=== PATIENT | female | born 1945 | race Caucasian/White ===

== ENCOUNTER → 2016-08-08 | Day surgery (SDC) | payer OTHER ==
[~2016-08-08] VITALS: Ht 162.6 cm; Wt 92.0 kg
[~2016-08-08] MED LIST: ACETAMINOPHEN 325 MG TAB PO PRN; ALBINS/ INH; ALBU18002 INH; ASPI81TA28 PO; ATOR-24 PO; ATROPINE SULFATE 0.1 MG/ML 5ML SYR IV PRN; BUPR150T5 PO; DC ALL ANTICOAGULANTS ONE; IPRASOL4 INH; LIDOCAINE 5% TOP; MIDAZOLAM HCL 1 MG/ML 2ML VIAL ONE; ONDANSETRON INJ 2 MG/ML 2 ML VIAL IV PRN; OXGN; PANT40TA PO; POTA10CA28 PO; SODIUM CHLORIDE 0.9% 1000ML 1,000 ML IV SCH; SODIUM CHLORIDE 0.9% 1000ML 250 ML IV PRN; TORS10TA14 PO; UMEC1AER INH
[2016-08-08 07:06] VITALS: BP 158/65; PULSE 78; TEMP 36.7; O2SAT 95; Ht 162.6 cm; Wt 92.0 kg
--- NOTE | 2016-08-08 09:30 | History & Physical Bridge Note ---
H&P Re-Evaluation Bridge Note: I have examined the patient, reviewed the History & Physical and in the interval since the performance of the History & Physical I have noted the following changes of clinical significance: No changes noted
[2016-08-08 09:37] LABS: ISTAT ARTERIAL BLOOD GAS HCO3 23 meq/L (19-24); ISTAT ARTERIAL BLOOD GAS PCO2 39 mmHg (35-46); ISTAT ARTERIAL BLOOD GAS PO2 35 mmHg (80-95); ISTAT ARTERIAL BLOOD GAS pH 7.37 (7.35-7.45); ISTAT CARBON DIOXIDE 24 mEq/l (24-31)
--- NOTE | 2016-08-08 09:39 | Cardiac Catheterization ---
Procedure Note Procedure Date August 08, 2016. Pre-Procedure Diagnosis Cardiothoracic Symptom AUC Score 7 Post-Procedure Diagnosis Moderate CAD Procedure(s) Performed Coronary Angiography, Right Heart Cath Field Contractor Dr. Stearns Talent Partner(s) None Estimated Blood Loss None Medication(s) Versed Summary of Findings Moderate CAD Hemodynamics Rest Ao: 139/63 Final Ao: 138/62 LV: valve not crossed RA: 11 RV: 40/6 PA: 4017 PW: 18 Recommendations Medical therapy and/or Counseling Specimens None Radiation Exposure (mGy) 416 Contrast (mls) 80 Fluids (cc crystalloids) 63 Procedural Complication(s) None Disposition [employer]/Recovery ACC Data Cardiac Status Clinical evaluation leading to the procedure CAD Presntation: Sx unlikely to be ischemic Anginal Classification: CCS II Heart Failure: No Cardiogenic Shock w/in 24Hrs: No Cardiac Arrest w/in 24Hrs: No Imaging studies past 6 months: Yes Stress studies past 6 months: No Coronary Anatomy Dominant: Right Left Main (% Stenosis): Distal (40) LAD (% Stenosis): Mid (20) OM3 (% Stenosis): Proximal (50) RCA (% Stenosis): Mid (20) Diagnostic Status: Elective Closure Device Percutaneous Entry Location: Femoral Closure Device: Mynx Recommendations: Medical therapy and/or Counseling
--- NOTE | 2016-08-08 09:42 | Discharge Instructions ---
Discharge Instructions Procedure Procedure Date: August 08, 2016. Reason for Visit: Possible Pulmonary Hypertension *Dr Stearns To Do*. Discharge Discharge Date: August 08, 2016. Discharge Diagnosis: Mild Pulmonary Hypertension, Moderate Nonobstructive CAD Last Recorded Wt (Kilograms): 92 Anesthesia Post Anesthesia Instructions: If you have had General Anesthesia or IV Sedation: * Do not drive today. * Resume driving when surgeon permits. * Do not make important decisions or sign legal documents today. * Call surgeon for: 1. Temperature elevations greater than 101 degrees F. 2. Uncontrollable pain. 3. Excessive bleeding. 4. Persistent nausea and vomiting. 5. Medication intolerance (nausea, vomiting or rash). * For nausea and vomiting use only clear liquids such as: tea, soda, bouillon until nausea subsides, then gradually increase diet as tolerated. * If you have any concerns or questions, call your surgeon's office. If physician is unavailable and it is an emergency, call 911 or go to the nearest emergency room. Instructions Activity Recommendations: limitations Recommended Home Diet: resume previous diet Allergies: Coded Allergies: Flu Virus Vaccine (Unverified Allergy, Severe, "I almost the next day ", 08/08/16) Sulfa Antibiotics (Unverified Allergy, Unknown, Pt doesn't remember, ) Provider Instructions ACTIVITY RECOMMENDATIONS: It is common to feel weak and fatigue for a few days. * Do not drive or operate any motorized equipment for the next three days. * Limit stair usage (2 or 3 trips a day only) for the next three days. * Do not lift anything heavier than 10 pounds for the next three days. * Do not engage in vigorous exercise or any sports for the next five days. * You may shower the day after your procedure, but do not immerse the area for three days. Cleanse the site gently with soap and water. SPECIAL CARE INSTRUCTIONS: * You may replace the pressure dressing or band-aid the morning after the procedure. * After your procedure, it is normal to have a small bruise or small lump at the site. Examine your site daily for any change in the bruise or lump, redness, swelling, drainage or numbness. Notify your doctor if any change. BLEEDING: * If there is a small amount of bleeding at the site, lie down and apply firm pressure with a clean cloth for ten minutes. When the bleeding stops, lie quietly keeping the procedure limb straight for six hours. Notify your doctor as soon as possible. * If the bleeding does not stop after ten minutes or if there is a large amount of bleeding or spurting, call 911 immediately. Continue to lie down and hold firm pressure until help arrives. SKIN IRRITATION: * You may experience some redness and/or swelling in the area where radiation was administered. If any skin irritation occurs, please contact your family physician. FOLLOW UP VISIT: Keep any scheduled doctor appointments. Follow Up Karla Elaine Recommendations: Call your doctor if: * Temperature above 101 degrees * Pain not relieved by pain medicine ordered * There is increased drainage or redness from any incision * You have any unanswered questions or concerns. Your Doctors Instructions noted above were prepared by provider Les Stearns. Patient Signature Section: Patient Instructions Signature Page Mildred Moser Patient (or Guardian) Signature/Date: I have read and understand the instructions given to me by my caregivers. Caregiver/RN/Doctor Signature/Date: The above-named patient and/or guardian has received patient instructions on this date. + Original Patient Signature Page (only) stays with chart. Please make copy for patient.
[2016-08-08 13:15] VITALS: BP 130/72; PULSE 70; O2SAT 97
--- NOTE | 2016-08-08 13:36 | CARDIAC CATH REPORT ---
PROCEDURES: 1. Right heart catheterization. 2. Coronary angiography. HISTORY OF PRESENT ILLNESS: This is a 70-year-old female with a longstanding history of cigarette smoking and tobacco associated COPD. She has been experiencing dyspnea with activity as well as lower extremity edema suggesting pulmonary hypertension and cor pulmonale. PROCEDURE SUMMARY: The patient was seen and evaluated in the holding area of the clinical laboratory technologist. After informed consent was obtained, the patient was taken to the cardiac catheterization lab where access was obtained using a retrograde Seldinger technique from the right femoral artery and vein. A 7-Divehi [place]-Radha catheter was utilized for right heart pressures and cardiac outputs. A 5-Divehi preformed diagnostic catheter was utilized for the coronary angiograms. A left ventriculogram was not performed due to the patient's history of chronic kidney disease. The patient tolerated the procedure well. The arterial site was closed with a Mynx device and she was returned to the holding area of the clinical laboratory technologist in stable condition. HEMODYNAMIC DATA: Right atrial pressure is a mean of 11 mmHg, right ventricular pressure is 40/6 mmHg, PA pressure is 40/17 mmHg, pulmonary capillary wedge pressure is a mean of 18 mmHg. Cardiac output by thermal dilution is 5.4 liters per minute with cardiac index of 2.7. Cardiac output by Acacia equation was 4.4 liters per minute with cardiac index of 2.2 liters per minute per m2. CORONARY ANGIOGRAPHY: Selective injections of the right coronary artery reveal it to be dominant. The right coronary artery has minor coronary artery disease reaching about 20% in the mid segment. The artery is widely patent. Selective injections of the left coronary artery reveal some tapering of the left main trunk distally to about 40% stenosis. The left circumflex artery consists of 3 marginal branches. The third and last marginal branch has a 50% stenosis of its proximal segment. There is a large ramus branch which is widely patent off of the LAD. The LAD has diffuse disease with the worst being approximately a 30%-50% stenosis in its mid or proximal segment. The artery is essentially widely patent. SUMMARY: The patient has mild pulmonary hypertension and mild to moderate nonobstructive coronary artery disease. RECOMMENDATIONS: Stop smoking and for medical management of the patient's underlying lung disease as well as coronary artery disease.
== END | disposition home or self-care (01) ==
LOC: C.CATH 06:32
PROVIDERS: ATTEND Internal Medicine Cardiovascular Disease
DX: I25.10 Atherosclerotic heart disease of native coronary artery without angina pectoris (principal); I27.2 Other secondary pulmonary hypertension; F17.210 Nicotine dependence, cigarettes, uncomplicated; G47.33 Obstructive sleep apnea (adult) (pediatric); I12.9 Hypertensive chronic kidney disease with stage 1 through stage 4 chronic kidney disease, or unspecified chronic kidney disease; E78.5 Hyperlipidemia, unspecified; I73.9 Peripheral vascular disease, unspecified; N18.3 Chronic kidney disease, stage 3 (moderate); H35.039 Hypertensive retinopathy, unspecified eye; J44.9 Chronic obstructive pulmonary disease, unspecified; Z82.49 Family history of ischemic heart disease and other diseases of the circulatory system

== ENCOUNTER 2023-05-31 11:20 | Inpatient (IN) ==
--- NOTE | 2023-05-31 11:41 | Emergency Department Note ---
Impression & Plan Hypoxia, COPD exacerbation, Pneumonia, SOB (shortness of breath), Rhinovirus infection, Elevated troponin, Hypomagnesemia ED Provider Note NAME: PELON FERNANDEZ AGE: 77 SEX: F : 1945 ARRIVES VIA: Walk-In INFORMANT: [Patient] ED PROVIDER(S): [Osito Graham MD] CHIEF COMPLAINT: Short of breath HISTORY OF PRESENT ILLNESS: The patient is a 77-year-old female with COPD and diabetes. She states that this weekend, 4 to 5 days ago, she began to feel short of breath and had some increased cough. At times, the cough has been productive. She has pain in her back moving to the right abdomen. She feels very short of breath with any exertion. She had to start wearing her home O2-she does not typically wear home oxygen. The patient has been using her nebulizer 3 times a day. Despite doing this and taking her regular medications, she has become more and more short of breath. The patient went to her doctor's office today, her O2 saturation was quite low at around 85%. She was referred to the ER. Of note, the patient did have RSV earlier this year, she has not had any recent sick contacts. PMHx/PSHx/Social Hx: See Below PHYSICAL EXAM: GENERAL: Patient is in moderate respiratory distress. HEENT: No acute trauma, normocephalic atraumatic, mucous membranes moist, no nasal congestion. NECK: No stridor, no adenopathy, no meningismus, trachea is midline. LUNGS: Moderate respiratory distress, increased respiratory rate. She is short of breath with just speaking a short sentence. She is quite short of breath with walking back from the bathroom. She has wheezing and rhonchi bilaterally. HEART: Heart tones were quite distant and difficult to describe as she had extensive overriding lung sounds. ABDOMEN: Soft, nontender, no peritonitis. EXTREMITIES: No cyanosis, full range of motion of all the joints without pain or difficulty. Mild bilateral pedal edema. NEUROLOGIC: Oriented x 3, no acute motor or sensory deficits, no focal weakness. SKIN: No jaundice, no diaphoresis. DIFFERENTIAL DIAGNOSIS: Exacerbation of COPD, CHF, pneumonia, pneumothorax, anemia, electrolyte imbalance, cardiac ischemia, viral illness, among others. EMERGENCY DEPARTMENT PROCEDURES: MEDICAL DECISION MAKING: There was no leukocytosis or concerning anemia. There was a slightly low platelet count at 115. No coagulopathy. No renal failure. The magnesium was somewhat low at 1.5. No concerning liver enzyme elevation. ECG shows a sinus rhythm, no obvious ischemia. Cardiac enzyme testing x 1 was slightly elevated. This troponin elevation could be secondary to cardiac injury or potentially just mismatch from her hypoxia. Urinalysis did not show infection. Respiratory bio fire was positive for rhinovirus. Chest film showed a potential right lower lung infiltrate. Lactic acid level was not elevated making severe sepsis unlikely. On exam, patient was clearly short of breath. She was wheezing. She was reportedly hypoxic earlier today. The patient was aggressively managed. She was ordered for 2 DuoNebs. She was given IV Solu-Medrol, IV ceftriaxone. She received IV magnesium. The patient does appear to be improving with the above treatment. She is in need of a hospital stay. She appears to have a rhinovirus infection and potentially early pneumonia. She has a flare of COPD. Given her findings, given her hypoxia, hospitalization is indicated. I spoke with the patient and case management, the on-call hospitalist was consulted. Prior/Outside records/notes reviewed: ED visit note from 12/08/2022 discussing her presentation for shortness of breath and a flare of COPD. ECG per my interpretation: Indication was shortness of breath. The ECG shows a sinus rhythm with a rate of 72. There is significant baseline artifact. There is no obvious ST elevation, no PVCs. The QTc was 466. Continuous Cardiac Monitoring per my interpretation: An order was placed for continuous cardiac monitoring. The monitor shows a rate of 77 with normal sinus rhythm. Imaging/x-ray results per my interpretation: Chest x-ray shows what appears to be a right lower lung infiltrate consistent with pneumonia. No pneumothorax or CHF. Chronic Medical/Social conditions affecting care: Advanced age, COPD history Care/Management discussed with: Case management, the on-call hospitalist. Level of care consideration(s): After review of the information above and other included data: --I believe the patient requires escalation of care to admission Critical Care Note: I have personally spent 47 minutes of critical care time in the direct management of this patient. This includes bedside care, interpretation of diagnostic studies, and testing, discussion with consultants, patient, and family members, and other required patient management activities. This 47 minutes is in excess of all separately billable procedures. DISPOSITION: Admission Past Med/Surg History Medical History Chronic diastolic CHF (congestive heart failure) CAD (coronary artery disease) Osteoarthritis CKD (chronic kidney disease) DJD (degenerative joint disease) Neuropathy Tachycardia reason colon/EGD being done at hospital per pt, Metoprolol was added for this Diabetes mellitus, type 2 NIDDM GERD (gastroesophageal reflux disease) Hypertension Hyperlipidemia History of COVID-05 October 2021 > not hospitalized Sleep apnea cpap Chronic obstructive pulmonary disease rare res inh use Surgical History History of tonsillectomy Hx of lumpectomy benign > right History of surgery on wrist right History of repair of rotator cuff right History of hysterectomy History of bladder surgery bladder tack History of esophagogastroduodenoscopy (EGD) History of colonoscopy History of herniorrhaphy History of cholecystectomy History of appendectomy History of tooth extraction History of cardiac cath [place] approx 5 yrs ago per pt, no stents Family History Mother Diabetes Grandmother (Maternal) Diabetes Social History Smoking Status: Current every day smoker Tobacco Type: Cigarettes Cigarettes Per Day: less than 1/2 ppd; Second Hand Exposure: No; Do You Dip or Chew Tobacco: No; Tobacco Cessation Education Requested by Patient: No Hx Alcohol Use: Yes Alcohol type: wine Hx Substance Use: No Preferred Language: [place] Communication Ability: Effective Cardiopulmonary Technician Required: No Beliefs That Will Affect Care: None Current Living Situation: Alone Other Information That Helps Us Care for You: No Feels Safe at Home: Yes Safety Concerns: Feels Safe At This Time Assistive Devices: CPAP, Denture - Upper, Denture - Lower and Glasses Allergies Allergies Allergy/AdvReac Type Severity Reaction Status Date / Time Iodinated Contrast Media Allergy Severe Hives Verified 07/13/22 07:50 Influenza Virus Vaccines Allergy Intermediate Hives Verified 07/13/22 07:50 Sulfa (Sulfonamide Allergy Unknown Pt doesn't Verified 07/13/22 07:50 Antibiotics) remember Home Meds Home Medications Medication Instructions Recorded Confirmed albuterol sulfate 90 mcg/actuation 2 inh inhalation Q4 PRN Shortness 07/04/22 05/31/23 aerosol inhaler Of Breath Or Wheezing aspirin 81 mg tablet,delayed 81 mg PO QAM 07/04/22 05/31/23 release atorvastatin 40 mg tablet 40 mg PO QAM 07/04/22 05/31/23 fluticasone furoate 200 1 inh inhalation HS 07/04/22 05/31/23 mcg/actuation blister powder for inhalation (Arnuity Ellipta) glipizide 5 mg tablet 5 mg PO QAM 07/04/22 05/31/23 losartan 50 mg tablet 50 mg PO QAM 07/04/22 05/31/23 metoprolol tartrate 25 mg tablet 12.5 mg PO BID 07/04/22 05/31/23 omeprazole 20 mg capsule,delayed 20 mg PO QAM 07/04/22 05/31/23 release spironolactone 25 mg tablet 12.5 mg PO 4XWK 07/04/22 05/31/23 spironolactone 25 mg tablet 25 mg PO 3XWK 07/04/22 05/31/23 umeclidinium 62.5 mcg-vilanterol 1 inh inhalation DAILY 07/04/22 05/31/23 25 mcg/actuation powdr for inhalation (Anoro Ellipta) calcium carbonate 600 mg-vitamin 1 cap PO DAILY 12/08/22 05/31/23 D3 25 mcg (1,000 unit) capsule cholecalciferol (vitamin D3) 25 25 mcg PO HS 12/08/22 05/31/23 mcg (1,000 unit) tablet (Vitamin D3) ipratropium 0.5 mg-albuterol 3 mg 3 ml inhalation Q6 PRN Dyspnea 12/08/22 05/31/23 (2.5 mg base)/3 mL nebulization soln torsemide 10 mg tablet 10 mg PO 3XWK 12/08/22 05/31/23 torsemide 10 mg tablet 10 mg PO QAM 12/08/22 05/31/23 Results & Data (ED) Vital Signs Vital Signs - 24 hr 05/31/23 11:27 05/31/23 12:00 05/31/23 12:00 Temperature 36.6 C Temperature Source Temporal Artery Scan Pulse Rate 78 Pulse Rate [Apical] Respiratory Rate 28 H Respiratory Effort / Characteristics Short of Breath Non-Labored Respiratory Depth Respiratory Pattern Regular Blood Pressure 155/84 H Blood Pressure [Right Arm] Blood Pressure Mean 107 Blood Pressure Mean [Right Arm] Pulse Oximetry 94 Oxygen Delivery Method Nasal Cannula Nasal Cannula Nasal Cannula Oxygen Flow Rate 2 2 2 Sepsis Recent Fever Within 48 Hours No Sepsis New/Unexplained Change in Mental Status No Sepsis Action Taken by Nursing No Action Required 05/31/23 12:00 05/31/23 12:00 05/31/23 12:12 Temperature Temperature Source Pulse Rate Pulse Rate [Apical] 85 78 Respiratory Rate 22 20 Respiratory Effort / Characteristics Non-Labored Spontaneous Short of Breath Respiratory Depth Normal Respiratory Pattern Blood Pressure Blood Pressure [Right Arm] 195/93 H Blood Pressure Mean Blood Pressure Mean [Right Arm] 127 Pulse Oximetry 96 96 96 Oxygen Delivery Method Nasal Cannula Nasal Cannula Nasal Cannula Oxygen Flow Rate 2 2 2 Sepsis Recent Fever Within 48 Hours Sepsis New/Unexplained Change in Mental Status Sepsis Action Taken by Nursing 05/31/23 13:00 Temperature Temperature Source Pulse Rate 148 H Pulse Rate [Apical] Respiratory Rate Respiratory Effort / Characteristics Respiratory Depth Respiratory Pattern Blood Pressure Blood Pressure [Right Arm] Blood Pressure Mean Blood Pressure Mean [Right Arm] Pulse Oximetry Oxygen Delivery Method Oxygen Flow Rate Sepsis Recent Fever Within 48 Hours Sepsis New/Unexplained Change in Mental Status Sepsis Action Taken by [facility] Medications Current Medication List: was personally reviewed by me Laboratory Data Attestation: I reviewed the patient's lab results. 05/31/23 11:44 05/31/23 11:44 Lab Results 05/31/23 05/31/23 Range/Units 11:44 12:10 WBC 6.24 (4.8-10.8) K/ul RBC 4.98 (4.20-5.40) M/uL Hgb 15.1 (12.0-16.0) g/dl Hct 44.2 (37.0-47.0) % MCV 88.8 (80.0-100.0) fL MCH 30.3 (25.0-34.0) pg MCHC 34.2 (32.0-36.0) g/dL RDW Std Deviation 46.6 H (36.4-46.3) fL RDW Coeff of Santhosh 14.5 (11.5-14.5) % Plt Count 115 L (130-400) K/uL MPV 10.1 (9.4-12.4) fL Immature Gran % (Auto) 0.3 % Neut % (Auto) 71.8 % Lymph % (Auto) 18.6 % [place] % (Auto) 6.4 % Eos % (Auto) 1.9 % Baso % (Auto) 1.0 % Neut # (Auto) 4.48 (1.40-6.50) K/uL Lymph # (Auto) 1.16 L (1.20-3.40) K/uL [place] # (Auto) 0.40 (0.11-0.59) K/uL Eos # (Auto) 0.12 (0.00-0.50) K/uL Baso # (Auto) 0.06 (0.00-0.20) K/uL Immature Gran # (Auto) 0.02 (0.01-0.20) K/uL PT 10.9 (9.0-12.0) Seconds INR 1.0 (0.9-1.1) APTT 29 (21-31) Seconds PTT Ratio 1.0 Sodium 134 L (136-145) mmol/L Potassium 4.6 (3.5-5.1) mmol/L Chloride 102 (98-107) mmol/L Carbon Dioxide 24 (21-32) mmol/L Anion Gap 8 (3-11) BUN 12 (6-23) mg/dl Creatinine 1.15 (0.6-1.2) mg/dl Est Cr Clr Drug Dosing Not Reportable Est GFR ( Amer) 53.5 ml/min Est GFR (Non-Af Amer) 46.2 ml/min BUN/Creatinine Ratio 10.4 (10-20) Glucose 167 H (70-99(Fasting)) mg/dl Lactate 1.1 (0.4-2.0) mmol/L Calcium 9.4 (8.6-10.3) mg/dl Magnesium 1.5 L (1.7-2.4) mg/dl Total Bilirubin 1.3 H (0.2-1.0) mg/dl AST 17 (13-39) U/L ALT 21 (7-52) U/L Alkaline Phosphatase 102 (34-104) U/L Troponin I High Sens 17.1 H (0-14) pg/ml Total Protein 6.7 (6.0-8.3) gm/dl Albumin 4.4 (3.4-5.0) gm/dl Globulin 2.3 L (2.5-4.0) gm/dl Albumin/Globulin Ratio 1.9 (0.9-2) Procalcitonin 0.04 (0-0.5) ng/ml Urine Color Yellow Urine Appearance Clear (Clear) Urine pH 6.5 (4.5-7.5) Ur Specific [place] 1.007 (1.000-1.030) Urine Protein Trace H (Negative) Urine Glucose (UA) Negative (Negative) Urine Ketones Negative (Negative) Urine Blood Negative (Negative) Urine Nitrite Negative (Negative) Urine Bilirubin Negative (Negative) Urine Urobilinogen Negative (Negative) Ur Leukocyte Esterase Negative (Negative) Urine WBC (Auto) 0 (0-5) /hpf Urine RBC (Auto) 0-4 (0-4) /hpf U Hyaline Cast (Auto) 0 (0-5) /lpf U Epithel Cells (Auto) >30 H (0-5) /lpf Urine Bacteria (Auto) Negative (Negative) Adenovirus (PCR) Not Detected (NotDetected) B. pertussis DNA (PCR) Not Detected (NotDetected) B.parapertussis DNA PCR Not Detected (NotDetected) C. pneumoniae DNA (PCR) Not Detected (NotDetected) Coronavirus OC43 (PCR) Not Detected (NotDetected) Coronavirus HKU1 (PCR) Not Detected (NotDetected) Coronavirus 229E (PCR) Not Detected (NotDetected) SARS-CoV-2 (PCR) Not Detected (NotDetected) Coronavirus NL63 (PCR) Not Detected (NotDetected) Human Metapneumovir PCR Not Detected (NotDetected) Influenza Type A (PCR) Not Detected (NotDetected) Influenza Type B (PCR) Not Detected (NotDetected) M. pneumoniae (PCR) Not Detected (NotDetected) Parainfluenza 1 (PCR) Not Detected (NotDetected) Parainfluenza 2 (PCR) Not Detected (NotDetected) Parainfluenza 3 (PCR) Not Detected (NotDetected) Parainfluenza 4 (PCR) Not Detected (NotDetected) RSV (PCR) Not Detected (NotDetected) Entero/Rhino (PCR) DETECTED A (NotDetected) Administered Medications Albuterol (Albut/Ipratrop 3mg/0.5mg Neb 3 Ml Vial) 3 ml NEB Q4R DIONE; Protocol Stop: 06/30/23 15:28 Last Admin: 05/31/23 18:22 Dose: 3 ml Documented By: Admin: 05/31/23 15:45 Dose: 3 ml Documented By: TIRXIE Enoxaparin Sodium (Enoxaparin Inj 40 Mg/0.4 Ml Syr) 40 mg SQ Q24H [facility] Stop: 06/30/23 17:59 Last Admin: 05/31/23 18:11 Dose: 40 mg Documented By: ELISSA Sodium Chloride (Nss) 1,000 mls @ 80 mls/hr IV .[id number] [facility] Stop: 06/01/23 02:44 Last Admin: 05/31/23 16:06 Dose: 80 mls/hr Documented By: ELISSA Azithromycin 500 mg/ Dextrose 255 mls @ 125 mls/hr IV Q24H [facility] Stop: 06/07/23 15:29 Last Infusion: 05/31/23 18:18 Dose: Infused Documented By: Admin: 05/31/23 16:06 Dose: 125 mls/hr Documented By: ELISSA Lidocaine (Lidocaine 5% 1 Patch) [facility] Stop: 06/30/23 15:44 Last Admin: 05/31/23 16:39 Dose: 1 patch Documented By: ELISSA Nicotine (Nicotine 21 Mg/24 Hr Tdsy) 21 mg TD QAM [facility] Stop: 06/30/23 15:28 Last Admin: 05/31/23 16:38 Dose: 21 mg Documented By: ELISSA Discontinued Medications Albuterol (Albut/Ipratrop 3mg/0.5mg Neb 3 Ml Vial) 12 ml NEB ONE ONE; Protocol Stop: 05/31/23 11:37 Last Admin: 05/31/23 12:10 Dose: Not Given Documented By: AETxe Albuterol (Albut/Ipratrop 3mg/0.5mg Neb 3 Ml Vial) 3 ml NEB NOW STA; Protocol Stop: 05/31/23 12:09 Last Admin: 05/31/23 12:11 Dose: 3 ml Documented By: NAVJOT Albuterol (Albut/Ipratrop 3mg/0.5mg Neb 3 Ml Vial) 3 ml NEB NOW STA; Protocol Stop: 05/31/23 12:40 Last Admin: 05/31/23 13:00 Dose: 3 ml Documented By: MARCUS Ceftriaxone Sodium (Rocephin) 2,000 mg in 50 mls @ 100 mls/hr IV NOW STA Stop: 05/31/23 12:05 Last Infusion: 05/31/23 12:30 Dose: Infused Documented By: Admin: 05/31/23 11:58 Dose: 100 mls/hr Documented By: MARCUS Magnesium Sulfate/Dextrose (Magnesium Sulfate / D5w) 1 gm in 100 mls @ 100 mls/hr IV NOW STA Stop: 05/31/23 13:38 Last Infusion: 05/31/23 15:42 Dose: Infused Documented By: Admin: 05/31/23 12:43 Dose: 100 mls/hr Documented By: MARCUS Doxycycline Hyclate 100 mg/ (Dextrose) 100 mls @ 50 mls/hr IV Q12H [facility] Stop: 06/07/23 14:44 Last Admin: 05/31/23 15:46 Dose: Not Given Documented By: ELISSA Methylprednisolone (Methylprednisolone 125 Mg/2 Ml Vial) 60 mg IV NOW STA Stop: 05/31/23 11:37 Last Admin: 05/31/23 11:57 Dose: 60 mg Documented By: MARCUS Miscellaneous (Patient's Height &/Or Weight Needed) 1 each N/A Q2H [facility] Stop: 06/30/23 15:44 Last Admin: 05/31/23 16:38 Dose: 1 each Documented By: ELISSA Imaging Data Radiologist's Impression: Chest X-Ray 05/31/23 11:36 XR chest 1V portable CLINICAL HISTORY: Dyspnea COMPARISON STUDY: Chest CT February 12, 2020. Chest radiograph December 08, 2022. FINDINGS: Lung volumes are normal. No pneumothorax or pleural effusion is present. There is no evidence for pulmonary edema. Cardiomediastinal silhouette is stable. Hazy right infrahilar opacity is present. IMPRESSION: Hazy right infrahilar opacity. This favors pneumonia. Post radiographs to ensure resolution are recommended. ACT 112: Negative or not required by law. Electronically signed by: Vic Oshea M.D. 05/31/2023 12:44 PM Discharge Plan Visit Data Chief Complaint: Shortness of Breath/Dyspnea Stated Complaint: SOB,DOC REF,85 SP02 ED Provider: Osito Graham Discharge Problem: Hypoxia, COPD exacerbation, Pneumonia, SOB (shortness of breath), Rhinovirus infection, Elevated troponin, Hypomagnesemia Patient Disposition: Admitted As Inpatient Condition: Fair Discharge Instructions Interventions: ED Discharge Assessment Last Done: 05/31/23 14:20 Discharge Problem: Pneumonia Qualifiers: Pneumonia type: due to unspecified organism Laterality: right Lung location: l ower lobe of lung Qualified Code(s): J18.9 - Pneumonia, unspecified organism
[2023-05-31] MEDS: methylPREDNISolone 125 MG/2 ML VIAL IV STA (11:57)
[2023-05-31] MEDS: cefTRIAXone SODIUM 2,000 MG/50 ML BAG IV STA (11:58)
[2023-05-31 12:10] LABS: Basophils # (auto) 0.06 K/uL (0.00-0.20); Eosinophils # (auto) 0.12 K/uL (0.00-0.50); Eosinophils % (auto) 1.9 %; Hematocrit (blood only) 44.2 % (37.0-47.0); Hemoglobin 15.1 g/dl (12.0-16.0); Immature Granulocytes # (auto) 0.02 K/uL (0.01-0.20); Immature Granulocytes % (auto) 0.3 %; Lymphocytes # (auto) 1.16 K/uL (1.20-3.40); Lymphocytes % (auto) 18.6 %; Mean Corpuscular Hemoglobin 30.3 pg (25.0-34.0); Mean Corpuscular Hgb Conc 34.2 g/dL (32.0-36.0); Mean Corpuscular Volume 88.8 fL (80.0-100.0); Mean Platelet Volume 10.1 fL (9.4-12.4); Monocytes % (auto) 6.4 %; Neutrophils # (auto) 4.48 K/uL (1.40-6.50); Neutrophils % (auto) 71.8 %; Platelet Count 115 K/uL (130-400); RDW Coefficient of Variation 14.5 % (11.5-14.5); RDW Standard Deviation 46.6 fL (36.4-46.3); Red Blood Count 4.98 M/uL (4.20-5.40); White Blood Count 6.24 K/ul (4.8-10.8)
[2023-05-31] MEDS: ALBUT/IPRATROP 3MG/0.5MG NEB 3 ML VIAL NEB ONE (12:10)
[2023-05-31] MEDS: ALBUT/IPRATROP 3MG/0.5MG NEB 3 ML VIAL NEB STA ×2 (12:11→13:00)
[2023-05-31 12:17] LABS: Appearance Urine Clear (Clear); Bacteria Urine Automated Negative (Negative); Bilirubin Urine Negative (Negative); Blood Urine Negative (Negative); Cast Urine Automated 0 /lpf (0-5); Color Urine Yellow; Epithelial Cell Urine Auto >30 /lpf (0-5); Glucose Urine UA Negative (Negative); Ketones Urine Negative (Negative); Leukocyte Esterase Urine Negative (Negative); Nitrite Urine Negative (Negative); Protein Urine Trace (Negative); RBC Urine Automated 0-4 /hpf (0-4); Specific Gravity Urine 1.007 (1.000-1.030); Urobilinogen Urine Negative (Negative); WBC Urine Automated 0 /hpf (0-5); pH Urine 6.5 (4.5-7.5)
[2023-05-31 12:34] LABS: Alanine Aminotransferase 21 U/L (7-52); Albumin Globulin Ratio 1.9 (0.9-2); Albumin Level 4.4 gm/dl (3.4-5.0); Alkaline Phosphatase 102 U/L (34-104); Anion Gap 8 (3-11); Aspartate Aminotransferase 17 U/L (13-39); BUN Creatinine Ratio 10.4 (10-20); Bilirubin,Total 1.3 mg/dl (0.2-1.0); Blood Urea Nitrogen 12 mg/dl (6-23); Calcium 9.4 mg/dl (8.6-10.3); Carbon Dioxide 24 mmol/L (21-32); Chloride 102 mmol/L (98-107); Est GFR (African American) 53.5 ml/min; Est GFR (Non-African American) 46.2 ml/min; Globulin 2.3 gm/dl (2.5-4.0); Glucose 167 mg/dl (70-99(Fasting)); Magnesium 1.5 mg/dl (1.7-2.4); Potassium 4.6 mmol/L (3.5-5.1); Sodium 134 mmol/L (136-145); Total Protein 6.7 gm/dl (6.0-8.3)
[2023-05-31 12:38] LABS: Troponin I High Sensitivity 17.1 pg/ml (0-14)
[2023-05-31 12:39] LABS: Partial Thromboplastin Time 29 Seconds (21-31); Prothrombin Time 10.9 Seconds (9.0-12.0)
[2023-05-31] MEDS: MAGNESIUM SULFATE / D5W 1 GM/100 ML BAG IV STA (12:43)
--- NOTE | 2023-05-31 12:46 | XRay Report ---
XR chest 1V portable CLINICAL HISTORY: Dyspnea COMPARISON STUDY: Chest CT February 12, 2020. Chest radiograph December 08, 2022. FINDINGS: Lung volumes are normal. No pneumothorax or pleural effusion is present. There is no eviden ce for pulmonary edema. Cardiomediastinal silhouette is stable. Hazy right infrahilar opacity is pres ent. IMPRESSION: Hazy right infrahilar opacity. This favors pneumonia. Post radiographs to ensure resolut ion are recommended. ACT 112: Negative or not required by law. Electronically signed by: Vic Oshea M.D. 05/31/2023 12:44 PM
[2023-05-31 13:03] LABS: Adenovirus PCR Not Detected (NotDetected); Bordetella parapertussis PCR Not Detected (NotDetected); Bordetella pertussis PCR Not Detected (NotDetected); Chlamydia pneumoniae PCR Not Detected (NotDetected); Coronavirus 229E PCR Not Detected (NotDetected); Coronavirus CoV-2 (COVID19)PCR Not Detected (NotDetected); Coronavirus HKU1 PCR Not Detected (NotDetected); Coronavirus NL63 PCR Not Detected (NotDetected); Coronavirus OC43PCR Not Detected (NotDetected); Human Metapneumovirus PCR Not Detected (NotDetected); Influenza A PCR Not Detected (NotDetected); Influenza B PCR Not Detected (NotDetected); Mycoplasma pneumoniae PCR Not Detected (NotDetected); Parainfluenza Virus 1 PCR Not Detected (NotDetected); Parainfluenza Virus 2 PCR Not Detected (NotDetected); Parainfluenza Virus 3 PCR Not Detected (NotDetected); Parainfluenza Virus 4 PCR Not Detected (NotDetected); Respiratory Syncytial VirusPCR Not Detected (NotDetected); Rhinovirus/Enterovirus PCR DETECTED (NotDetected)
--- NOTE | 2023-05-31 15:15 | History & Physical Report ---
Date of Service May 31, 2023 Assessment & Plan (1) Acute hypoxic respiratory failure: (2) COPD exacerbation: (3) Pneumonia: (4) Enterovirus infection: Plan: Admit to telemetry Patient presenting by referral PCPs office for evaluation of shortness of breath and hypoxia. While at PCPs office, patient was found to be 85% on room air. In the ED, currently requiring 2 L of oxygen via nasal cannula to maintain saturations Bio fire + entero-/rhinovirus CXR shows right infrahilar opacity consistent with pneumonia WBC 6K, procalcitonin 0.04, afebrile S/p Solu-Medrol in the ED, continue with Solu-Medrol 40 mg IV q8h S/p ceftriaxone in the ED, continue with and add azithromycin Pulmonary toilet with Mucinex, nebs, incentive parameter, flutter valve Patient appears dry on exam with dry mucous membranes, will give gentle IVF and hold diuretics for today (5) Back pain: Plan: Patient reports a right-sided back/flank pain for over the past month. Seems to be MSK in nature. Was seen at [place] [facility] on 05/[address] scan, these results are not available to me at this time Trial Lidoderm patch Consider imaging once COPD exacerbation improves (6) Chronic diastolic CHF (congestive heart failure): Plan: Appears dry on exam, giving gentle IVF, hold spironolactone and torsemide for today, reevaluate ability to resume tomorrow (7) Diabetes mellitus, type 2: Plan: Hgb A1c 6.8 04/2023 Hold oral agents and utilize NovoLog per protocol while hospitalized (8) Hypertension: Plan: Continue losartan and metoprolol (9) CAD (coronary artery disease): Plan: History of nonobstructive CAD Appears stable, no reports of chest pain Continue ASA, statin, beta-jeremy DVT PROPHYLAXIS SQ Lovenox Patient seen in collaboration with Dr. Deleon. I spent a total of 75 minutes coordinating, documenting, and providing care for this patient excluding time spent in the performance of separately billed services. This included personally reviewing all current laboratories and imaging studies, medication reconciliation, outpatient chart review, and discussion with specialists. Admission and Anticipated Discharge Date Admission Date: May 31, 2023 History of Present Illness Chief Complaint: Shortness of breath Primary Care Provider: Sandra Rasheed MD 77-year-old female with PMH DM type II, COPD, HTN, nonobstructive CAD, tobacco abuse, chronic diastolic CHF, and other problems listed below who presents to the ED by referral of PCP office for evaluation of shortness of breath and hypoxia. History is obtained from the patient and review of outpatient PCP, cardiology, pulmonary records. Patient reports increasing shortness of breath that began about 5 days ago. She reports shortness of breath with minimal exertion. She has had increased wheezing. Reports cough productive for white sputum. Patient reports she has oxygen at home due to a prior hospitalization at the beginning of the year for RSV. She has been off oxygen for the past couple of months however has been using it intermittently over the past 5 days. Patient was seen at her PCPs office today and was found to be 85% on room air. Patient was referred to the ED for further evaluation. She denies chest pain and palpitations. No lightheadedness, dizziness, diaphoresis, syncopal events. She denies abdominal pain, nausea, vomiting, diarrhea. No urinary symptoms. Reports a right-sided back/flank pain that has been ongoing for the past 1 [facility]. Describes pain as sharp and intermittent. Was seen at [place] ED on 05/[address] scan, results unavailable for my review. In the ED, patient is maintaining saturations on 2 L of oxygen via nasal cannula. Respiratory viral panel positive for entero-/rhinovirus. CXR shows a hazy right infrahilar opacity consistent with pneumonia. Patient was given neb, IV Solu-Medrol, IV ceftriaxone, IV magnesium. Allergies Allergy/AdvReac Type Severity Reaction Status Date / Time Iodinated Contrast Media Allergy Severe Hives Verified 07/13/22 07:50 Influenza Virus Vaccines Allergy Intermediate Hives Verified 07/13/22 07:50 Sulfa (Sulfonamide Allergy Unknown Pt doesn't Verified 07/13/22 07:50 Antibiotics) remember Home Medications Medication Instructions Recorded Confirmed Type albuterol sulfate 90 mcg/actuation 2 inh inhalation Q4 PRN Shortness 07/04/22 05/31/23 History aerosol inhaler Of Breath Or Wheezing aspirin 81 mg tablet,delayed 81 mg PO QAM 07/04/22 05/31/23 History release atorvastatin 40 mg tablet 40 mg PO QAM 07/04/22 05/31/23 History fluticasone furoate 200 1 inh inhalation HS 07/04/22 05/31/23 History mcg/actuation blister powder for inhalation (Arnuity Ellipta) glipizide 5 mg tablet 5 mg PO QAM 07/04/22 05/31/23 History losartan 50 mg tablet 50 mg PO QAM 07/04/22 05/31/23 History metoprolol tartrate 25 mg tablet 12.5 mg PO BID 07/04/22 05/31/23 History omeprazole 20 mg capsule,delayed 20 mg PO QAM 07/04/22 05/31/23 History release spironolactone 25 mg tablet 12.5 mg PO 4XWK 07/04/22 05/31/23 History spironolactone 25 mg tablet 25 mg PO 3XWK 07/04/22 05/31/23 History umeclidinium 62.5 mcg-vilanterol 1 inh inhalation DAILY 07/04/22 05/31/23 History 25 mcg/actuation powdr for inhalation (Anoro Ellipta) calcium carbonate 600 mg-vitamin 1 cap PO DAILY 12/08/22 05/31/23 History D3 25 mcg (1,000 unit) capsule cholecalciferol (vitamin D3) 25 25 mcg PO HS 12/08/22 05/31/23 History mcg (1,000 unit) tablet (Vitamin D3) ipratropium 0.5 mg-albuterol 3 mg 3 ml inhalation Q6 PRN Dyspnea 12/08/22 05/31/23 History (2.5 mg base)/3 mL nebulization soln torsemide 10 mg tablet 10 mg PO 3XWK 12/08/22 05/31/23 History torsemide 10 mg tablet 10 mg PO QAM 12/08/22 05/31/23 History Past Med/Surg History Medical History Chronic diastolic CHF (congestive heart failure) CAD (coronary artery disease) Osteoarthritis CKD (chronic kidney disease) DJD (degenerative joint disease) Neuropathy Tachycardia reason colon/EGD being done at hospital per pt, Metoprolol was added for this Diabetes mellitus, type 2 NIDDM GERD (gastroesophageal reflux disease) Hypertension Hyperlipidemia History of COVID-05 October 2021 > not hospitalized Sleep apnea cpap Chronic obstructive pulmonary disease rare res inh use Surgical History History of tonsillectomy Hx of lumpectomy benign > right History of surgery on wrist right History of repair of rotator cuff right History of hysterectomy History of bladder surgery bladder tack History of esophagogastroduodenoscopy (EGD) History of colonoscopy History of herniorrhaphy History of cholecystectomy History of appendectomy History of tooth extraction History of cardiac cath [place] approx 5 yrs ago per pt, no stents Family History Mother Diabetes Grandmother (Maternal) Diabetes Social History Smoking Status: Unknown if ever smoked Tobacco Type: Cigarettes Cigarettes Per Day: less than 1/2 ppd; Second Hand Exposure: No; Do You Dip or Chew Tobacco: No; Hx Alcohol Use: Yes Alcohol type: wine Hx Substance Use: No Preferred Language: Belgian Communication Ability: Effective Crab Steamer Required: No Beliefs That Will Affect Care: None Current Living Situation: Alone Feels Safe at Home: Yes Assistive Devices: CPAP, Denture - Upper, Denture - Lower and Glasses Physical Exam Constitutional: WD/WN, vitals as above + ill appearing; no acute distress Eyes: PERRL, conjunctivae normal, anicteric sclerae ENMT: external ear and nose normal, oropharynx normal Mouth: + dry oral mucous membranes Respiratory: Patient short of breath with minimal exertion, unable to speak in full sentences at times, lungs are very tight on exam with minimal air movement and faint end expiratory wheezing Cardiovascular: Rate/Rhythm: regular rate and regular rhythm Vessels: normal peripheral pulses Extremities: no edema Gastrointestinal (Abdomen): normal bowel sounds, soft, nontender, no hepatosplenomegaly Musculoskeletal: no cyanosis or clubbing, extremities motor strength 5/5 Skin: no rashes, warm and dry Neurologic: PERRL, EOMI, accommodation nl, no face palsy, no dysarthria Psychiatric: A+Ox3, euthymic affect Results & Data Results & Data Vital Signs (Past 12 Hours) Vital Signs Temp Pulse Pulse Resp BP BP Pulse Ox 05/31/23 14:46 36.9 C 78 22 154/71 H 94 05/31/23 14:00 85 22 196/93 H 95 05/31/23 13:00 148 H 05/31/23 12:12 78 20 96 05/31/23 12:00 96 05/31/23 12:00 85 22 195/93 H 96 05/31/23 12:00 05/31/23 12:00 05/31/23 11:27 36.6 C 78 28 H 155/84 H 94 O2 Del Method O2 Flow Rate 05/31/23 14:46 Room Air, Nasal Cannula 2 05/31/23 14:00 Nasal Cannula 3 05/31/23 13:00 05/31/23 12:12 Nasal Cannula 2 05/31/23 12:00 Nasal Cannula 2 05/31/23 12:00 Nasal Cannula 2 05/31/23 12:00 Nasal Cannula 2 05/31/23 12:00 Nasal Cannula 2 05/31/23 11:27 Nasal Cannula 2 Laboratory Results Short CBC 05/31/23 Range/Units 11:44 WBC 6.24 (4.8-10.8) K/ul Hgb 15.1 (12.0-16.0) g/dl Hct 44.2 (37.0-47.0) % Plt Count 115 L (130-400) K/uL BMP 05/31/23 11:44 Sodium 134 L Potassium 4.6 Chloride 102 Carbon Dioxide 24 BUN 12 Creatinine 1.15 Glucose 167 H Calcium 9.4 Liver Function 05/31/23 Range/Units 11:44 Total Bilirubin 1.3 H (0.2-1.0) mg/dl AST 17 (13-39) U/L ALT 21 (7-52) U/L Alkaline Phosphatase 102 (34-104) U/L Albumin 4.4 (3.4-5.0) gm/dl Urine 05/31/23 Range/Units 11:44 Urine Color Yellow Urine Appearance Clear (Clear) Urine pH 6.5 (4.5-7.5) Ur Specific Pease 1.007 (1.000-1.030) Urine Protein Trace H (Negative) Urine Glucose (UA) Negative (Negative) Diagnostic Findings Chest X-Ray 05/31/23 11:36 XR chest 1V portable CLINICAL HISTORY: Dyspnea COMPARISON STUDY: Chest CT February 12, 2020. Chest radiograph December 08, 2022. FINDINGS: Lung volumes are normal. No pneumothorax or pleural effusion is present. There is no evidence for pulmonary edema. Cardiomediastinal silhouette is stable. Hazy right infrahilar opacity is present. IMPRESSION: Hazy right infrahilar opacity. This favors pneumonia. Post radiographs to ensure resolution are recommended. ACT 112: Negative or not required by law. Electronically signed by: Vic Oshea M.D. 05/31/2023 12:44 PM Supervising Physician Co-Signing Physician Notes Pt was seen and examined by myself, Kristy Deleon MD on the day of service. Care was coordinated with DIPAK Ybarra. 77yoF presenting with acute hypoxic respiratory failure in the setting of a rhinovirus/enterovirus infection and Hx of COPD. Pt was seen while having a breathing treatment. Stated that her breathing was much more improved than when she came in. Concerned about right abd/flank pain. Platelets 115, Sodium 134, Glucose 167, Mag 1.5, t bili of 1.3 Blood Cx pending, Biofire positive for Entero/rhinovirus Chest XRAY concerning for pneumonia Acute hypoxic respiratory failure- oxygen supplementation as needed, breathing treatments Enterovirus/Rhinovirus infection- supportive rx Pneumonia- noted on chest xr, procal wnl, consider chest CT. Rocephin and azithromycin COPD Exacerbation- breathing rx, steroids, azithromycin for antiinflammatory effect, continue LABA/LAMA/ICS right abd/flank pain and bulge- US soft tissue ordered, consider CT abd/pelvis if nonrevealing. Pt with noted contrast allergy. Otherwise as above. I spent a total [id number] coordinating, documenting, and providing care for this patient excluding time spent in the performance of separately billed services
[2023-05-31] MEDS: ALBUT/IPRATROP 3MG/0.5MG NEB 3 ML VIAL NEB SCH (15:45)
[2023-05-31] MEDS: DOXYCYCLINE HYCLATE 100 MG in DEXTROSE 5% MINI-B 100 ML IV SCH (15:46)
[2023-05-31] MEDS: SODIUM CHLORIDE 0.9% 1,000 ML IV SCH (16:06)
[2023-05-31] MEDS: AZITHROMYCIN 500 MG in DEXTROSE 5% 250 ML IV SCH (16:06)
[2023-05-31] MEDS: Patient's HEIGHT &/or WEIGHT Needed SCH (16:38)
[2023-05-31] MEDS: NICOTINE 21 MG/24 HR TDSY TD SCH (16:38)
[2023-05-31] MEDS: LIDOCAINE 5% 1 PATCH TD SCH (16:39)
[2023-05-31] MEDS: ENOXAPARIN INJ 40 MG/0.4 ML SYR SQ SCH (18:11)
[2023-05-31] MEDS: methylPREDNISolone 40 MG in SYRINGE 0 ML IV SCH (20:14)
[2023-05-31] MEDS: CHOLECALCIFEROL 25 MCG (1000 UNITS) TAB PO SCH (20:14)
[2023-05-31] MEDS: METOPROLOL TARTRATE 25 MG TAB PO SCH (20:15)
[2023-05-31] MEDS: guaiFENesin 600 MG TABCR PO SCH (20:17)
[2023-05-31] MEDS: FLUTICASONE FUROATE 200MCG 14 PUFFS/INHALER INH SCH (20:17)
[2023-05-31] MEDS: ACETAMINOPHEN 325 MG TAB PO PRN (20:23)
[2023-05-31] MEDS ORDERED: GLUCAGON FOR INJ 1 MG VIAL SQ PRN (20:59)
[2023-05-31] MEDS ORDERED: GLUCOSE 10 TAB/TUBE PO PRN (20:59)
[2023-05-31] MEDS ORDERED: CARBOHYDRATES FOR HYPOGLYCEMIA PO PRN (20:59)
[2023-05-31] MEDS ORDERED: DEXTROSE 50% 50 ML SYRINGE IV PRN (20:59)
[2023-05-31] MEDS ORDERED: GLUCOSE 40% GEL 15 GM TUBE PO PRN (20:59)
[2023-05-31] MEDS: INSULIN ASPART PER UNIT CHARGE SC SCH (21:13)
[2023-06-01 05:16] LABS: Hematocrit (blood only) 37.8 % (37.0-47.0); Hemoglobin 12.6 g/dl (12.0-16.0); Mean Corpuscular Hemoglobin 29.8 pg (25.0-34.0); Mean Corpuscular Hgb Conc 33.3 g/dL (32.0-36.0); Mean Corpuscular Volume 89.4 fL (80.0-100.0); Mean Platelet Volume 10.5 fL (9.4-12.4); Platelet Count 100 K/uL (130-400); RDW Standard Deviation 45.5 fL (36.4-46.3); Red Blood Count 4.23 M/uL (4.20-5.40); White Blood Count 5.43 K/ul (4.8-10.8)
[2023-06-01 05:48] LABS: Creatinine Clr Calc Pharmacy 40.3 ml/min; Est GFR (African American) 50.8 ml/min; Est GFR (Non-African American) 43.9 ml/min; Magnesium 1.5 mg/dl (1.7-2.4); Potassium 4.3 mmol/L (3.5-5.1); Troponin I High Sensitivity 12.5 pg/ml (0-14)
--- OUTSIDE RECORDS SUMMARY | 2023-06-01 06:43 | External Medical Summary | Summary of Care ---
Author Name Unknown Organization [facility] Address [address] [place] [address] Phone [phone] Care Team Providers Care Rigging Helper Name Role Phone Sandra Rasheed MD Primary Care Provide r Reason for Visit * Reason Onset Date Comments Health Maintenance 05/31/2023 Encounter Details Date Type Department Care Team (Late st Contact Info) Description 05/31/2023 Telephone Family Medicine [address] [phone] Sandra Rasheed MD [address] [place] [address] Health Maintenance Allergies Active Allergy Reactions Criticality Noted Date Comments Influenza Vaccines 01/06/2015 Had flu symptoms x 1 month after injection Iodinated Contrast Media High 09/01/2016 Hives 48 hours post cardiac cath. No respiratory symptoms Sulfa Antibiotics Unknown 02/22/2013 documented as of this encounter (statuses as of 05/31/2023) Medications Medication Sig Dispensed Refills Start Date End Date Status ASPIRIN 81 MG PO TABS Take by mouth at bedtime. 0 Active Cholecalciferol 1000 UNITS Capsule Take 1 Capsule by mouth at bedtime. 30 Cap 3 09/09/2016 Active meclizine (ANTIVERT) 25 MG TabletIndications:Gi daren script for 8 tablets to use x 5 days at [facility] 06-14-18 Take 1 Tab by mouth 3 times a day as needed for Dizziness. Indications: Given script for 8 tablets to use x 5 days at [facility] 06-14-18 90 Tab 0 10/31/2018 Active CPAP every night at bedtime. 0 Active Olopatadine HCl 0.2 % Ophthalmic Solution (Pataday) Instill 1 Drop into both eyes daily. 5 mL 12 08/06/2020 Active Vitamin C 1000 MG Oral Tablet Take 1 Tablet by mouth in the morning. 1 tab daily in the winter. 0 Active Calcium Carb-Cholecalciferol 600-1000 MG-UNIT Oral Capsule Take by mouth . 1 daily 0 Active Metoprolol Tartrate 25 MG Oral Tablet (Lopressor)Indicatio ns:Hypertensive kidney disease with stage 3b chronic kidney disease (HCC),Hypertension with goal blood pressure less than 140/80 TAKE ONE-HALF TABLET BY MOUTH TWICE A DAY. 90 Tablet 3 09/09/2022 4 Active Ipratropium-Albutero l 0.5-2.5 (3) MG/3ML Inhalation Solution (Duoneb) INHALE ONE VIAL VIA NEBULIZER EVERY 6 HOURS NEEDED FOR DYSPNEA 1080 mL 5 07/26/2022 4 Active Albuterol Sulfate HFA 108 (90 Base) MCG/ACT Inhalation Aerosol Solution INHALE TWO PUFFS BY MOUTH EVERY 4 HOURS NEEDED FOR COUGH, FOR SHORTNESS OF BREATH, OR WHEEZING 54 g 3 05/31/2022 Active Losartan Potassium 50 MG Oral Tablet (Cozaar)Indications: Hypertension with goal blood pressure less than 140/80 TAKE ONE TABLET BY MOUTH EVERY DAY 100 Tablet 4 10/24/2022 4 Active Spironolactone 25 MG Oral Tablet (Aldactone)Indicatio ns:Hypertension goal BP (blood pressure) < 150/90,Localized edema TAKE ONE TABLET BY MOUTH ON MONDAY, MONDAY, AND MONDAY. TAKE ONE-HALF TABLET ON ALL OTHER DAYS OF THE WEEK 64 Tablet 3 12/19/2022 4 Active Atorvastatin Calcium 40 MG Oral Tablet (Lipitor)Indications :Dyslipidemia, goal LDL below 130,Hypertension goal BP (blood pressure) < 150/90 Take 1 Tablet by mouth every day 90 Tablet 3 12/26/2022 4 Active Omeprazole 20 MG Oral Capsule Delayed Release (PriLOSEC)Indication s:Hypertension goal BP (blood pressure) < 150/90 Take 1 Capsule by mouth in the morning. 90 Capsule 3 12/26/2022 4 Active OneTouch Delica Plus [id number] :Type 2 diabetes mellitus with hemoglobin A1c goal of less than 8.0% ([facility]) Use to test blood sugar up to twice daily. Dx E11.9 200 Each 3 01/11/2023 Active OneTouch Verio In Vitro Strip (Glucose Blood)Indications:Ty pe 2 diabetes mellitus with hemoglobin A1c goal of less than 8.0% ([facility]) USE TO TEST BLOOD SUGAR UP TO TWICE DAILY 200 Strip 2 02/22/2023 5 Active Nebulizer/Tubing/Sindy thpiece KitIndications:COPD, group D, by GOLD 2017 classification ([facility]) Replacement requested as hers isn't delivering medicine well and is old. DME: [facility] 1 Kit 0 02/22/2023 Active B Complex Oral Capsule Take 1 Capsule by mouth in the morning. 0 Active Anoro Ellipta 62.5-25 MCG/ACT Inhalation Aerosol Powder Breath Activated (umeclidinium-vilant jyoti) Inhale 1 dose by mouth every morning. 180 Each 3 02/22/2023 Active Arnuity Ellipta 200 MCG/ACT Inhalation Aerosol Powder Breath Activated (fluticasone Furoate)Indications: COPD, group D, by GOLD 2017 classification ([facility]) 1 dose inhaled every evening. Rinse mouth after use. 90 Each 3 02/22/2023 Active Dicyclomine HCl 10 MG Oral Capsule (Bentyl) Take 1 Capsule by mouth 2 times a day as needed for Cramping. 60 Capsule 1 03/24/2023 Active Torsemide 10 MG Oral Tablet (Demadex)Indications :Hypertension with goal blood pressure less than 140/80,Localized edema TAKE ONE TABLET BY MOUTH ONCE DAILY TAKE ONE ADDITIONAL TABLET BY MOUTH IN THE AFTERNOON ON MONDAY, MONDAY AND MONDAY 135 Tablet 1 05/05/2023 Active Lidocaine 5 % External Patch (Lidoderm) Place 1 Patch topically on the skin daily. 0 05/06/2023 Active oxyCODONE HCl 5 MG Oral Tablet (Oxy IR) Take 1 Tablet by mouth every 6 hours as needed. 0 05/06/2023 Active predniSONE 20 MG Oral Tablet (Deltasone) 1 tab 3 times a day for 3 days, then 1 tab 2 times a day for 3 days, then 1 tab daily for 3 days 18 Tablet 0 05/11/2023 Active glipiZIDE ER 5 MG Oral Tablet Extended Release 24 Hour (Glucotrol XL)Indications:Type 2 diabetes mellitus with hemoglobin A1c goal of less than 8.0% (HCC) TAKE ONE TABLET BY MOUTH EVERY MORNING 100 Tablet 1 05/17/2023 Active documented as of this encounter (statuses as of 05/31/2023) Active Problems Problem Noted Date Diagnosed Date Chronic diastolic congestive heart failure 05/02 Type 2 diabetes mellitus wit h diabetic neuropathy, without long-term current use of insulin 05/02/2023 Immunization not carried out because of patient decision 07/26/2022 Type 2 diabetes mellitus wit h stage 3b chronic kidney disease, without long-term current use of insulin 04/26/2022 Hypertensive kidney disease with stage 3b chronic kidney disease 04/26/2022 Pulmonary hypertension 04/26/2022 Type 2 diabetes mellitus with diabetic cataract 04/26/2022 Dyslipidemia, goal LDL below 70 04/26/2022 Constipation 04/26/2022 Gastro-esophageal reflux disease without esophag itis 07/17/2020 Lung nodule 08/14/2019 Coronary artery disease invo lving [place] coronary artery of [place] heart without angina pectoris 08/30/2018 Diabetes mellitus type 2 with peripheral artery disease 05/17/2018 Centrilobular emphysema 05/14/2018 Nocturnal hypoxemia 05/14/2018 MGUS (monoclonal gammopathy of unknown significa nce) 09/25/2017 Gastric ulcer 02/21/2017 Type 2 diabetes mellitus wit h hemoglobin A1c goal of less than 8.0% 10/27/2016 Allergy to iodinated contrast 09/01/2016 Family history of ischemic heart disease 017 OMARI (obstructive sleep apnea) 07/25/2016 COPD, group D, by GOLD 2017 classification 07/25 Overview: Centrilobular emphysema in the upper lobes without suspicious pulmonary nodule. Lung Rads Category 1: Negative. No nodules/definitely benign nodules. Recommendation: Continue annual screening with LDCT in 12 months Persistent insomnia 04/28/2015 Central retinal vein occlusion 01/06/2015 Hypertensive retinopathy 01/06/2015 Advanced directives, counseling/discussion 04/02 Overview: No, Advance Directive brochure given to patient at prior appointment. Hypertension with goal blood pressure less than 140/80 Tobacco use disorder documented as of this encounter (statuses as of 05/31/2023) Resolved Problems Problem Noted Date Diagnosed Date Resolved Date Chronic kidney disease, stage 3b 09/01/2020 04/26/2022 Overview: Per CKD protocol Hypertension associated with stage 3b chronic kidney disease due to type 2 diabetes mellitus 07/28/2020 04/26/2022 Overview: Per CKD protocol Dyslipidemia, goal LDL below 100 07/17/2020 07/17/2020 Preoperative respiratory examination 02/27/2020 01/05/2021 Type 2 DM with CKD stage 3 and hypertension 05/17/2018 07/30/2020 Overview: Per CKD protocol Cirrhosis of liver 05/17/2018 9 Pulmonary hypertension 01/31/201707/17 Cirrhosis of liver without ascites 10/25/2016 05/17/2018 CA (dyspnea on exertion) 07/25/2016 Localized edema 07/25/2016 03/05/2019 COPD exacerbation 01/22/2016 09/25/2017 Vitreous hemorrhage 05/25/2015 10/11/19 18 Retinal edema 01/06/2015 09/25/2017 Kidney disease, chronic, sta ge III (GFR 30-59 ml/min) 10/20/2014 05/29/2018 Overview: Per CKD protocol #1 PAD (peripheral artery disease) 07/22/2014 05/17/2018 Postmenopausal atrophic vaginitis 06/05/2013 03/05/2019 Urge incontinence of urine 06/05/2013 0 07/22/2014 Impaired fasting glucose 02/22/201311/2017 Urinary, incontinence, stress female 03/05/2019 Urinary incontinence without sensory awareness 06/05/2013 Tubular adenoma of colon 11/2017 documented as of this encounter (statuses as of 05/31/2023) Immunizations Name Administration Dates Next Due HEP A - Hepatitis A (Adult > 18 yrs) 08/21/2017, 02/17/2017 Hepatitis B, 20+ yrs 08/21/2017,03/24/2017,02/17 Pneumococcal Conjugate Vacc, 13 Valent (Prevnar) 06/15/2015 Pneumococcal Polysaccharide PPV23 (Pneumovax) 02/22/2013 Seasonal Influenza, Split, I IV3, With Preserve, Inj 12/03/2013 TDAP (age 10 and older)(Boostrix) 08/12/2022 TDAP (age 11 and older)(Adacel) 02/22/2013 documented as of this encounter Social History Tobacco Use Types Packs/Day Years Used Date Smoking Tobacco: Every Day Cigarettes 2 58 Smokeless Tobacco: Never Comments:03/30/22 currently smoking 10-15 cig/day - max smoked was 2 ppd Alcohol Use Standard Drinks/Week Comments Yes 0 (1 standard drink = 0.6 oz pur e alcohol) rare wine PHQ-2 Answer Date Recorded PHQ Adult Total Score 1 07/26/2022 Hunger Vital Sign Answer Date Recorded Within the past 12 months, y ou worried that your food would run out before you got the money to buy more. Patient declined Within the past 12 months, t he food you bought just didn't last and you didn't have money to get more. Patient declined Sex and Gender Information Value Date Recorded Sex Assigned at Female 07/21/2020 3:22 PM EDT Gender Identity Female 07/21/2020 3:22 PM EDT Sexual Orientation Straight 07/21/2020 3: 22 PM EDT Job Start Date Occupation Industry Not on file Not on file Not on file documented as of this encounter Miscellaneous Notes * Telephone Encounter - Stephanie Mayfield LPN - 05/31/2023 8:38 AM EDT Care Gaps Comprehensive Care Outreach Last Office/Telemedicine Visit: 05/02/2023 (in office), Visit date not found (telemedicine) Next Office Visit: 10/31/2023 Hemoglobin AIC Results: Lab Results Component Value Date/Time HEMOGLOBIN A1C - [facility] 6.8 (H) 05/02/2023 02:28 PM HEMOGLOBIN A1C - [facility] 6.7 (H) 10/27/2022 01:32 PM HEMOGLOBIN A1C - [facility] 6.4 (H) 04/26/2022 01:34 PM HEMOGLOBIN A1C - [facility] 10.5 (H) 02/24/2020 12:36 PM HEMOGLOBIN A1C - [facility] 9.4 (H) 12/06/2019 10:33 AM HEMOGLOBIN A1C - [facility] 8.7 (H) 04/04/2019 12:57 PM BP Readings from Last 1 Encounters: 05/17/23 138/78 Reviewed Health Maintenance below: Health Maintenance Topic Date Due Zoster Vaccines (1 of 2) Never done *ADVANCE DIRECTIVE NOT ON FILE Never done DISCUSS TOBACCO CESSATION (REFER TO SMARTSET #3291) 12/02/2021 Influenza Vaccine (FLU shot) (1) 11/18/2022 COVID-19 Vaccine ( - 2022- season) Never done DXA Scan 07/24/2023 Depression Screening 07/27/2023 HbA1c 10/31/2023 GFR 11/03/2023 Appt today Care Gap Outreach Action Taken: Outreach not indicated documented in this encounter Plan of Treatment Upcoming Encounters Date Type Department Care Team (Late st Contact Info) Description 05/31/2023 10:40 AM EDT Office Visit Family Practice [facility] [address] [place] [address] Demi Medina CRNP [address] [place] [address] 06/07/2023 3:00 PM EDT Office Visit Pulmonary Medicine, [facility] [address] [place] [address] Nir Ward MD [address] [place] [address] 07/27/2023 3:00 PM EDT Office Visit Cardiology, [facility] [address] [place] [address] Laquita Leija CRNP [address] [place] [address] 07/31/2023 1:30 PM EDT Nurse Only Ancillary [address] [place] [address] Jonaey, Nurse [address] [place] [address] 09/08/2023 1:00 PM EDT Office Visit Gastroenterology [address] [place] [address] Jelly Mills CRNP [address] [place] [address] 09/13/2023 11:15 AM EDT Office Visit Ophthalmology, [facility] [address] [place] [address] Mulugeta Hodges DO [address] [place] [address] 10/31/2023 3:00 PM EDT Office Visit Family Medicine [address] [place] [phone] Susy Ochoa PA-C [address] [place] [address] [place] [address] 02/28/2024 11:00 AM EST Imaging Radiology [address] 132 [facility] [place] [address] 05/07/2024 4:00 PM EST Office Visit Family Medicine [address] [place] [phone] Sandra Rasheed MD [address] [place] [address] [place] [address] 05/17/2024 12:00 PM EST Office Visit Sleep Disorders Ctr [facility] 132 [facility] [place] [phone] Aminata Quiroz CRNP [address] [place] [address] Scheduled Procedures Name Priority Associated Diagnoses Date/Ti me COLONOSCOPY FLEXIBLE PROXIMAL DIAGNOSTIC Recall History of colon polyps Health Maintenance Due Date Last Done Comments Zoster Vaccines (1 of 2) 1996 *ADVANCE DIRECTIVE NOT ON FILE 09/01/2018 DISCUSS TOBACCO CESSATION (REFER TO SMARTSET #3291) 12/02/2021 12/02/2020 COVID-19 Vaccine ( season) 2022 Influenza Vaccine (FLU shot) (#1) 2022 12/03/2013 DXA Scan 07/24/2023 07/23/2020, 07/20, 03/25/2013 Depression Screening 07/27/2023 07/26/2022 HbA1c 10/31/2023 05/02/2023, 10/18, 04/26/2022, Additional history exists GFR 11/03/2023 05/05/2023, 04/20, 04/10/2023, Additional history exists CKD PHOS USE SMARTSET 64708 03/27/2024 01/0 10/2023, 04/26/2022, 04/21/2021, Additional history exists Albumin/Creatinine Ratio 05/02/2024 024, 04/26/2022, 08/10/2020, Additional history exists Diabetic Foot Exam 05/02/2024 05/02/2023, 0 04/26/2022, 07/22/2021, Additional history exists CKD HGB USE SMARTSET 48457 05/05/202405/05, 05/02/2023, 05/02/2023, Additional history exists Diabetic Eye Exam 05/10/2024 05/10/2023, , 08/10/2022, Additional history exists O2 ASSESSMENT COMPLETED IN PAST YEAR FOR COPD 05/17/2024 05/17/2023 COLONOSCOPY-EVERY 3 YRS AGES 18-100 07/13/2025 07/13/2022, 07/13/2022, 07/13/2022, Additional history exists DTaP,Tdap,and Td Vaccines (3 - Td or Tdap) 08/12/2032 08/12/2022, 02/22/2013 Pneumococcal Vaccine: 65+ Years Completed 06/15/2015, 02/22/2013 Alpha-1 Antitrypsin Completed 09/08/2016 Hepatitis C Screening Completed 09/08/2016 Hepatitis B Completed 08/21/2017, 07/2017, 02/17/2017 GARDASIL-HPV IMMUNIZATION SERIES Aged Out No longer eligible based on patient's age to complete this topic MENINGOCOCCAL (MENACTRA/MENVEO) Aged Out No longer eligible based on patient's age to complete this topic documented as of this encounter Medical Devices Implanted Type Area Studio Operations Engineer In Charge Device Identifier Shelf Expiration Date Model / Serial / Lot Gynecare Tvt Device Implanted:Qty: 1 on 06/18/2013 at OR [facility] N/A: Bladder 02/17/2016 [id number] / / [id number] documented as of this encounter Care Teams Rigging Helper Relationship Specialty Start Date End Date Sandra Rasheed MD [address] [place] [address] [place] [address] PCP - General Family Medicine 06/05/15 documented as of this encounter
--- OUTSIDE RECORDS SUMMARY | 2023-06-01 06:44 | External Medical Summary | Summary of Care ---
Author Name Unknown Organization [facility] Address [address] [place] [address] Phone [phone] Care Team Providers Care Structural Steel Worker Helper Name Role Phone Sandra Rasheed MD Primary Care Provide r Reason for Visit * Reason Onset Date Comments Advice 05/29/2023 Encounter Details Date Type Department Care Team (Late st Contact Info) Description 05/29/2023 Telephone Family Medicine [address] [phone] Sandra Rasheed MD [address] [place] [address] Advice Allergies Active Allergy Reactions Criticality Noted Date Comments Influenza Vaccines 01/06/2015 Had flu symptoms x 1 month after injection Iodinated Contrast Media High 09/01/2016 Hives 48 hours post cardiac cath. No respiratory symptoms Sulfa Antibiotics Unknown 02/22/2013 documented as of this encounter (statuses as of 05/30/2023) Medications Medication Sig Dispensed Refills Start Date End Date Status ASPIRIN 81 MG PO TABS Take by mouth at bedtime. 0 Active Cholecalciferol 1000 UNITS Capsule Take 1 Capsule by mouth at bedtime. 30 Cap 3 09/09/2016 Active meclizine (ANTIVERT) 25 MG TabletIndications:Gi daren script for 8 tablets to use x 5 days at [facility] 06-14-18 Take 1 Tab by mouth 3 times a day as needed for Dizziness. Indications: Given script for 8 tablets to use x 5 days at [facility] - 90 Tab 0 10/31/2018 Active CPAP every [...] BREATH, OR WHEEZING 54 g 3 05/31/2022 4 Active Losartan Potassium 50 MG Oral Tablet [...] 3 12/26/2022 4 Active OneTouch Delica Plus [id number] :Type 2 diabetes mellitus with hemoglobin A1c goal of less than 8.0% ([facility]) Use to test blood sugar up to twice daily. Dx E11.9 200 Each 3 01/11/2023 Active OneTouch Verio In Vitro Strip (Glucose Blood)Indications:Ty pe 2 diabetes mellitus with hemoglobin A1c goal of less than 8.0% ([facility]) USE TO TEST BLOOD SUGAR UP TO TWICE DAILY 200 Strip 2 02/22/2023 5 Active Nebulizer/Tubing/Sindy thpiece KitIndications:COPD, group D, by GOLD 2017 classification ([facility]) Replacement requested as hers isn't delivering medicine [...] COPD, group D, by GOLD 2017 classification ([facility]) 1 dose inhaled every evening. Rinse mouth [...] as of this encounter (statuses as of 05/30/2023) Active Problems Problem Noted Date Diagnosed Date [...] nodule 08/14/2019 Coronary artery disease invo lving [place] coronary artery of [place] heart without angina pectoris 08/30/2018 Diabetes mellitus [...] as of this encounter (statuses as of 05/30/2023) Resolved Problems Problem Noted Date Diagnosed Date [...] as of this encounter (statuses as of 05/30/2023) Immunizations Name Administration Dates Next Due HEP [...] encounter Miscellaneous Notes * Telephone Encounter - Juana Alexander RN - 05/30/2023 2:14 PM EDT Will forward to Demi Medina to send if agreeable after seeing patient * Telephone Encounter - Paty Rai LPN - 05/30/2023 1:25 PM EDT HH Concerns Elizabeth ELLER, Calling from: [facility] Report/Concerns of: PT referral, pain and wheezing Symptoms: SP [id number] RA Lung sounds wheezing All other VS WNLs Narrative: Elizabeth from [facility] calling PT referral for hip pain placed yesterday. Pt is still enrolled with service so order would need to be for HH PT, not out patient therapy. Elizabeth would like tocontinue seeing pt as she has now has wheezing and continued sob. HH could also have PT address pain. Pt is currently scheduled for appt with [facility] on 06/04, Elizabeth would like sooner appt scheduled to prevent pt returning to ER. Pt's son is willing to take her to for eval for wheezing and pain. Scheduled appt with Demi Medina on 05/30 at 10:40. Appt on 06/04 canceled. Elizabeth would like order to continue shelter and add PT through [facility] . Please fax new orders to [phone] * Telephone Encounter - Cha Mcclendon RN - 05/29/2023 3:00 PM EDT Appointment made for 06/04 with [facility]. If patient developes worsening sob, increased pain patient to go to ER. * Telephone Encounter - Sandra Rasheed MD - 05/29/2023 12:53 PM EDT Recommend appt for evaluation * Telephone Encounter - Cha Mcclendon RN - 05/29/2023 12:39 PM EDT Spoke to patient , she states Monday night she started to get the right side pain back radiating from her "hip to belly button" patient states 08/27. Patient states last week she did fine, no pain at all. Patient finished the prednisone a couple weeks ago and is not due to start Physical therapy until next week. Patient states pain got so bad she had to use her oxygen over the weekend. Patient states she started wheezing again and coughing up clear mucous. Denies any fevers, or colored mucous. Message sent to provider for advice. Reason for Call: No chief complaint on file. Contact: Telephone Call Contact Type: Advice Outcome: see note Face to face time spent with Patient (minutes): 0 Total Time including non face to face (minutes): 10 * Telephone Encounter - Cha Mcclendon RN - 05/29/2023 10:23 AM EDT Patient called left a VM, that she is not feeling well. documented in this encounter Plan of Treatment Upcoming Encounters Date Type Department Care Team (Late st Contact Info) Description 05/31/2023 10:40 AM EDT Office Visit Family Practice [facility] [address] [place] [address] Demi Medina CRNP 132 [facility] [place] [address] 06/07/2023 3:00 PM EDT Office Visit Pulmonary Medicine, [facility] [address] [address] Nir Ward MD [address] [facility] [address] 07/27/2023 3:00 PM EDT Office Visit Cardiology, [facility] 132 [facility] [place] [address] Laquita Leija CRNP [address] [place] [address] 07/31/2023 1:30 PM EDT Nurse Only Ancillary [address] [place] [address] Hank, Nurse [address] [place] [address] 09/08/2023 1:00 PM EDT Office Visit Gastroenterology [address] [place] [address] Jelly Mills CRNP [address] [place] [address] 09/13/2023 11:15 AM EDT Office Visit Ophthalmology, [facility] 132 [facility] [place] [address] Mulugeta Hodges DO 132 [facility] [place] [address] 10/31/2023 3:00 PM EDT Office Visit Family Medicine [address] [place] [phone] Susy Ochoa PA-C [address] [place] [address] [place] [address] 02/28/2024 11:00 AM EST Imaging Radiology [address] 132 [facility] [place] [address] 05/07/2024 4:00 PM EST Office Visit Family Medicine [address] [place] [phone] Sandra Rasheed MD [address] [place] [address] [place] [address] 05/17/2024 12:00 PM EST Office Visit Sleep Disorders [facility]tr [facility] [address] [facility] [place] [phone] Aminata Quiroz CRNP 132 [facility] [place] [address] Scheduled Procedures Name Priority Associated Diagnoses Date/Ti me COLONOSCOPY FLEXIBLE PROXIMAL DIAGNOSTIC Recall History of colon polyps Health Maintenance Due Date Last Done Comments Zoster Vaccines (1 of 2) 1996 *ADVANCE DIRECTIVE NOT ON FILE 09/01/2018 DISCUSS TOBACCO CESSATION (REFER TO SMARTSET #3291) 12/02/2021 12/02/2020 COVID-19 Vaccine ( - 2022-24 season) 2022 Influenza Vaccine (FLU shot) (#1) 2022 12/03/2013 DXA Scan 07/24/2023 07/23/2020, 07/20, 03/25/2013 Depression Screening 07/27/2023 07/26/2022 HbA1c 10/31/2023 05/02/2023, 10/18, 04/26/2022, Additional history exists GFR 11/03/2023 05/05/2023, 04/20, 04/10/2023, Additional history exists CKD PHOS USE SMARTSET 19263 03/27/2024 01/0 10/2023, 04/26/2022, 04/21/2021, Additional history exists Albumin/Creatinine Ratio 05/02/2024 024, 04/26/2022, 08/10/2020, Additional history exists Diabetic Foot Exam 05/02/2024 05/02/2023, 0 04/26/2022, 07/22/2021, Additional history exists CKD HGB USE SMARTSET 47724 05/05/202405/05, 05/02/2023, 05/02/2023, Additional history exists Diabetic [...] this encounter Medical Devices Implanted Type Area Right Of Way Maintenance Supervisor Device Identifier Shelf Expiration Date Model / Serial / Lot Gynecare Tvt Device Implanted:Qty: 1 on 06/18/2013 at OR [facility] N/A: Bladder 02/17/2016 [id number] / / [id number] documented as of this encounter Care Teams Structural Steel Worker Helper Relationship Specialty Start Date End Date Sandra Rasheed MD [address] [place] [address] [place] [address] PCP - General Family Medicine 06/05/15 documented as of this encounter
--- OUTSIDE RECORDS SUMMARY | 2023-06-01 06:44 | External Medical Summary | Summary of Care ---
Author Name Unknown Organization [facility] Address [address] [place] [address] Phone [phone] Care Team Providers Care Reading Coach Name Role Phone Sandra Rasheed MD Primary Care Provide r Reason for Visit * Reason Onset Date Comments Advice 05/29/2023 Encounter Details Date Type Department Care Team (Late st Contact Info) Description 05/29/2023 Telephone Family Medicine [address] [phone] Sandra Rasheed MD [address] [place] [id number] Advice Allergies Active Allergy Reactions Criticality [...] tablets to use x 5 days at [facility] 06-14-18 Take 1 Tab by mouth 3 times a day as needed for Dizziness. Indications: Given script for 8 tablets to use x 5 days at [facility] - 90 Tab 0 10/31/2018 Active CPAP [...] 3 12/26/2022 4 Active OneTouch Delica Plus [id number] :Type 2 diabetes mellitus with hemoglobin A1c goal of less than 8.0% ([facility]) Use to test blood sugar up to twice daily. Dx E11.9 200 Each 3 01/11/2023 Active OneTouch Verio In Vitro Strip (Glucose Blood)Indications:Ty pe 2 diabetes mellitus with hemoglobin A1c goal of less than 8.0% ([facility]) USE TO TEST BLOOD SUGAR UP TO TWICE DAILY 200 Strip 2 02/22/2023 5 Active Nebulizer/Tubing/Sindy thpiece KitIndications:COPD, group D, by GOLD 2017 classification ([facility]) Replacement requested as hers isn't delivering medicine [...] COPD, group D, by GOLD 2017 classification ([facility]) 1 dose inhaled every evening. Rinse mouth [...] nodule 08/14/2019 Coronary artery disease invo lving [place] coronary artery of [place] heart without angina pectoris 08/30/2018 Diabetes mellitus [...] encounter Miscellaneous Notes * Telephone Encounter - Paty Rai, GRACIE - 05/30/2023 1:25 PM EDT HH Concerns Elizabeth RN, Calling from: [facility] Report/Concerns of: PT referral, pain and wheezing Symptoms: SP [id number] RA Lung sounds wheezing All other VS WNLs Narrative: Elizabeth from [facility] calling PT referral for hip pain placed yesterday. Pt is still enrolled with service so order would need to be for HH PT, not out patient therapy. Elizabeth would like tocontinue seeing pt as she has now has wheezing and continued sob. HH could also have PT address pain. Pt is currently scheduled for appt with Maximinojanet on 06/04, Elizabeth would like sooner appt scheduled to prevent pt returning to ER. Pt's son is willing to take her to for eval for wheezing and pain. Scheduled appt with Demi Boboleda on 05/30 at 10:40. Appt on 06/04 canceled. Elizabeth would like order to continue long-term and add PT through [facility] . Please fax new orders to [phone] * Telephone Encounter - Cha Mcclendon RN [...] her "hip to belly button" patient states /10. Patient states last week she did fine, [...] 10:40 AM EDT Office Visit Family Practice [facility] [address] [place] [address] Demi Medina CRNP [address] [place] [address] 06/07/2023 3:00 PM EDT Office Visit Pulmonary Medicine, [facility] [address] [place] [address] Nir Ward MD [address] [place] [address] 07/27/2023 3:00 PM EDT Office Visit Cardiology, [facility] [address] [place] [address] Laquita Leija CRNP [address] [place] [address] 07/31/2023 1:30 PM EDT Nurse Only Ancillary [address] [place] [address] [place], Nurse [address] [place] [address] 09/08/2023 1:00 PM EDT Office Visit Gastroenterology [address] [place] [address] Jelly Mills CRNP [address] [place] [address] 09/13/2023 11:15 AM EDT Office Visit Ophthalmology, [facility] [address] [place] [address] Mulugeta Hodges DO [address] [place] [address] 10/31/2023 3:00 PM EDT Office Visit Family Medicine [address] [place] [phone] Susy Ochoa PA-C [address] [place] [address] [place] [address] 02/28/2024 11:00 AM EST Imaging Radiology [address] [place] [address] 05/07/2024 4:00 PM EST Office Visit Family Medicine [address] [place] [phone] Sandra Rasheed MD [address] [place] [address] [place] [address] 05/17/2024 12:00 PM EST Office Visit Sleep Disorders Ctr [facility] [address] [place] [phone] Aminata Quiroz CRNP [address] [place] [address] Scheduled Procedures Name Priority Associated Diagnoses Date/Ti [...] Additional history exists CKD PHOS USE SMARTSET 11302 03/27/202410/2023, 04/26/2022, 04/21/2021, Additional history exists Albumin/Creatinine Ratio 05/02/2024 024, 04/26/2022, 08/10/2020, Additional history exists Diabetic Foot Exam 05/02/2024 05/02/2023, 0 04/26/2022, 07/22/2021, Additional history exists CKD HGB USE SMARTSET 04808 05/05/202405/05, 05/02/2023, 05/02/2023, Additional history exists Diabetic [...] this encounter Medical Devices Implanted Type Area Route Sales Person Device Identifier Shelf Expiration Date Model / Serial / Lot Gynecare Tvt Device Implanted:Qty: 1 on 06/18/2013 at OR [facility] N/A: Bladder 02/17/2016 [id number] / / [id number] documented as of this encounter Care Teams Reading Coach Relationship Specialty Start Date End Date Sandra Rasheed MD [address] [place] [address] [place] [phone] PCP - General Family Medicine 06/05/15 documented as of this encounter
--- OUTSIDE RECORDS SUMMARY | 2023-06-01 06:44 | External Medical Summary | Summary of Care ---
Author Name Unknown Organization [facility] Address [address] [place] [address] Phone [phone] Care Team Providers Care Sheeter Waxer Operator Name Role Phone Sandra Rasheed MD Primary Care Provide r Reason for Visit * Reason Onset Date Comments Advice 05/29/2023 Encounter Details Date Type Department Care Team (Late st Contact Info) Description 05/29/2023 Telephone Family Medicine [address] [phone] Sandra Rasheed MD [address] [place] [address] Advice Allergies Active Allergy Reactions Criticality Noted Date Comments Influenza Vaccines 01/06/2015 Had flu symptoms x 1 month after injection Iodinated Contrast Media High 09/01/2016 Hives 48 hours post cardiac cath. No respiratory symptoms Sulfa Antibiotics Unknown 02/22/2013 documented as of this encounter (statuses as of 05/29/2023) Medications Medication Sig Dispensed Refills Start Date End Date Status ASPIRIN 81 MG PO TABS Take by mouth at bedtime. 0 Active Cholecalciferol 1000 UNITS Capsule Take 1 Capsule by mouth at bedtime. 30 Cap 3 09/09/2016 Active meclizine (ANTIVERT) 25 MG TabletIndications:Gi daren script for 8 tablets to use x 5 days at [facility] 06-14-18 Take 1 Tab by mouth 3 times a day as needed for Dizziness. Indications: Given script for 8 tablets to use x 5 days at [facility] - 90 Tab 0 10/31/2018 Active [...] 3 12/26/2022 4 Active OneTouch Delica Plus [id number] :Type 2 diabetes mellitus with hemoglobin A1c goal of less than 8.0% ([facility]) Use to test blood sugar up to twice daily. Dx E11.9 200 Each 3 01/11/2023 Active OneTouch Verio In Vitro Strip (Glucose Blood)Indications:Ty pe 2 diabetes mellitus with hemoglobin A1c goal of less than 8.0% ([facility]) USE TO TEST BLOOD SUGAR UP TO TWICE DAILY 200 Strip 2 02/22/2023 5 Active Nebulizer/Tubing/Sindy thpiece KitIndications:COPD, group D, by GOLD 2017 classification ([facility]) Replacement requested as hers isn't delivering medicine [...] COPD, group D, by GOLD 2017 classification ([facility]) 1 dose inhaled every evening. Rinse mouth [...] as of this encounter (statuses as of 05/29/2023) Active Problems Problem Noted Date Diagnosed Date [...] nodule 08/14/2019 Coronary artery disease invo lving [place] coronary artery of ute heart without angina pectoris 08/30/2018 Diabetes mellitus [...] as of this encounter (statuses as of 05/29/2023) Resolved Problems Problem Noted Date Diagnosed Date [...] as of this encounter (statuses as of 05/29/2023) Immunizations Name Administration Dates Next Due HEP [...] encounter Miscellaneous Notes * Telephone Encounter - Cha Mcclendon RN [...] her "hip to belly button" patient states 6/10. Patient states last week she did fine, [...] Care Team (Late st Contact Info) Description 06/05/2023 8:40 AM EDT Office Visit Family Medicine [address] [place] [phone] Shelbi Munoz [address] [place] [address] 06/07/2023 3:00 PM EDT Office Visit Pulmonary Medicine, [address] [place] [address] Nir Ward MD [facility] [place] [address] 07/27/2023 3:00 PM EDT Office Visit Cardiology, [facility] [address] [place] [address] Laquita Leija CRNP [address] [place] [address] 07/31/2023 1:30 PM EDT Nurse Only Ancillary [address] [place] [address] [place], Nurse [address] [place] [address] 09/08/2023 1:00 PM EDT Office Visit Gastroenterology [address] [place] [address] Jelly Mills CRNP [address] [place] [address] 09/13/2023 11:15 AM EDT Office Visit Ophthalmology, [facility] [address] [place] [address] Mulugeta Hodges DO [address] [place] [address] 10/31/2023 3:00 PM EDT Office Visit Family Medicine [address] [place] [phone] Susy Ochoa PA-C [address] [place] [address] [place] [address] 02/28/2024 11:00 AM EST Imaging Radiology [address] [place] [address] 05/07/2024 4:00 PM EST Office Visit Family Medicine [address] [place] [phone] Sandra Rasheed MD [address] [place] [address] [place] [address] 05/17/2024 12:00 PM EST Office Visit Sleep Disorders Ctr [facility] [address] [place] [phone] Aminata Quiroz CRNP [address] [place] [address] Scheduled Procedures Name Priority Associated Diagnoses [...] Additional history exists CKD PHOS USE SMARTSET 60106 03/27/2024 01/0 10/2023, 04/26/2022, 04/21/2021, Additional history exists Albumin/Creatinine Ratio 05/02/2024 024, 04/26/2022, 08/10/2020, Additional history exists Diabetic Foot Exam 05/02/2024 05/02/2023, 0 04/26/2022, 07/22/2021, Additional history exists CKD HGB USE SMARTSET 96315 05/05/202405/05, 05/02/2023, 05/02/2023, Additional history exists Diabetic [...] this encounter Medical Devices Implanted Type Area Disability Examiner Device Identifier Shelf Expiration Date Model / Serial / Lot Gynecare Tvt Device Implanted:Qty: 1 on 06/18/2013 at OR [facility] N/A: Bladder 02/17/2016 [id number] / / [id number] documented as of this encounter Care Teams Sheeter Waxer Operator Relationship Specialty Start Date End Date Sandra Rasheed MD [address] [place] [address] [place] [address] PCP - General Family Medicine 06/05/15 documented as of this encounter
--- OUTSIDE RECORDS SUMMARY | 2023-06-01 06:44 | External Medical Summary | Summary of Care ---
Author Name Unknown Organization [facility] Address [address] [place] [address] Phone [phone] Care Team Providers Care Pointing Machine Operator Name Role Phone Fang Rasheed MD Primary Care Provide r Reason for Visit * Reason Comments Medication Refill Encounter Details Date Type Department Care Team (Late st Contact Info) Description 05/17/2023 Refill Family Medicine [address] [phone] Fang Rasheed MD [address] [place] [address] [place] [phone] Type 2 diabetes mellitus with hemoglobin A1c goal of less than 8.0% ([facility]) Allergies Active Allergy Reactions Criticality Noted Date Comments Influenza Vaccines 01/06/2015 Had flu symptoms x 1 month after injection Iodinated Contrast Media High 09/01/2016 Hives 48 hours post cardiac cath. No respiratory symptoms Sulfa Antibiotics Unknown 02/22/2013 documented as of this encounter (statuses as of 05/17/2023) Medications Medication Sig Dispensed Refills Start Date End Date Status ASPIRIN 81 MG PO TABS Take by mouth at bedtime. 0 Active Cholecalciferol 1000 UNITS Capsule Take 1 Capsule by mouth at bedtime. 30 Cap 3 09/09/2016 Active meclizine (ANTIVERT) 25 MG TabletIndications:G iven script for 8 tablets to use x 5 days at [facility] 06-14-18 Take 1 Tab by mouth 3 times a day as needed for Dizziness. Indications: Given script for 8 tablets to use x [address] [facility] [place] 06-14-18 90 Tab 0 10/31/2018 Active CPAP every night at bedtime. 0 Active Olopatadine HCl 0.2 % Ophthalmic Solution (Pataday) Instill 1 Drop into both eyes daily. 5 mL 12 08/06/2020 Active Vitamin C 1000 MG Oral Tablet Take 1 Tablet by mouth in the morning. 1 tab daily in the winter. 0 Active Calcium Carb-Cholecalcifero l 600-1000 MG-UNIT Oral Capsule Take by mouth . 1 daily 0 Active Metoprolol Tartrate 25 MG Oral Tablet (Lopressor)Indicati ons:Hypertensive kidney disease with stage 3b chronic kidney disease (HCC),Hypertension with goal blood pressure less than 140/80 TAKE ONE-HALF TABLET BY MOUTH TWICE A DAY. 90 Tablet 3 09/09/2022 4 Active Ipratropium-Albuter ol 0.5-2.5 (3) MG/3ML Inhalation Solution (Duoneb) INHALE ONE VIAL VIA NEBULIZER EVERY 6 HOURS NEEDED FOR DYSPNEA 1080 mL 5 07/26/2022 4 Active Albuterol Sulfate HFA 108 (90 Base) MCG/ACT Inhalation Aerosol Solution INHALE TWO PUFFS BY MOUTH EVERY 4 HOURS NEEDED FOR COUGH, FOR SHORTNESS OF BREATH, OR WHEEZING 54 g 3 05/31/2022 4 Active Losartan Potassium 50 MG Oral Tablet (Cozaar)Indications :Hypertension with goal blood pressure less than 140/80 TAKE ONE TABLET BY MOUTH EVERY DAY 100 Tablet 4 10/24/2022 4 Active Spironolactone 25 MG Oral Tablet (Aldactone)Indicati ons:Hypertension goal BP (blood pressure) < 150/90,Localized edema TAKE ONE TABLET BY MOUTH ON MONDAY, MONDAY, AND MONDAY. TAKE ONE-HALF TABLET ON ALL OTHER DAYS OF THE WEEK 64 Tablet 3 12/19/2022 4 Active Atorvastatin Calcium 40 MG Oral Tablet (Lipitor)Indication s:Dyslipidemia, goal LDL below 130,Hypertension goal BP (blood pressure) < 150/90 Take 1 Tablet by mouth every day 90 Tablet 3 12/26/2022 4 Active Omeprazole 20 MG Oral Capsule Delayed Release (PriLOSEC)Indicatio ns:Hypertension goal BP (blood pressure) < 150/90 Take 1 Capsule by mouth in the morning. 90 Capsule 3 12/26/2022 4 Active OneTouch Delica Plus [id number] s:Type 2 diabetes mellitus with hemoglobin A1c goal of less than 8.0% ([facility]) Use to test blood sugar up to twice daily. Dx E11.9 200 Each 3 01/11/2023 Active OneTouch Verio In Vitro Strip (Glucose Blood)Indications:T ype 2 diabetes mellitus with hemoglobin A1c goal of less than 8.0% ([facility]) USE TO TEST BLOOD SUGAR UP TO TWICE DAILY 200 Strip 2 02/22/2023 5 Active Nebulizer/Tubing/Mo uthpiece KitIndications:COPD , group D, by GOLD 2017 classification ([facility]) Replacement requested as hers isn't delivering medicine well and is old. DME: [facility] 1 Kit 0 02/22/2023 Active B Complex Oral Capsule Take 1 Capsule by mouth in the morning. 0 Active Anoro Ellipta 62.5-25 MCG/ACT Inhalation Aerosol Powder Breath Activated (umeclidinium-vilan terol) Inhale 1 dose by mouth every morning. 180 Each 3 02/22/2023 Active Arnuity Ellipta 200 MCG/ACT Inhalation Aerosol Powder Breath Activated (fluticasone Furoate)Indications :COPD, group D, by GOLD 2017 classification ([facility]) 1 dose inhaled every evening. Rinse mouth after use. 90 Each 3 02/22/2023 Active Dicyclomine HCl 10 MG Oral Capsule (Bentyl) Take 1 Capsule by mouth 2 times a day as needed for Cramping. 60 Capsule 1 03/24/2023 Active Torsemide 10 MG Oral Tablet (Demadex)Indication s:Hypertension with goal blood pressure less than 140/80,Localized [...] MOUTH EVERY MORNING 100 Tablet 1 05/17/2023 5 Active glipiZIDE ER 5 MG Oral Tablet Extended Release 24 Hour (Glucotrol XL)Indications:Type 2 diabetes mellitus with hemoglobin A1c goal of less than 8.0% (HCC) TAKE ONE TABLET BY MOUTH EVERY MORNING 100 Tablet 1 09/15/2022 4 Discontinu ed(Refill) documented as of this encounter (statuses as of 05/17/2023) Active Problems Problem Noted Date Diagnosed Date [...] nodule 08/14/2019 Coronary artery disease invo lving [place] coronary artery of [place] heart without angina pectoris 08/30/2018 Diabetes mellitus [...] as of this encounter (statuses as of 05/17/2023) Resolved Problems Problem Noted Date Diagnosed Date [...] as of this encounter (statuses as of 05/17/2023) Immunizations Name Administration Dates Next Due HEP [...] encounter Miscellaneous Notes * Telephone Encounter - Sarita Faust, [facility] - 05/17/2023 12:59 PM ESTSigned Prescriptions: Disp Refills glipiZIDE ER 5 MG Oral Tablet Extended Rel*100 Ta*1 Sig: TAKE ONE TABLET BY MOUTH EVERY MORNINGAuthorizing Provider: FANG RASHEED User: SARITA FAUST documented in this encounter Plan of Treatment Upcoming Encounters Date Type Department Care Team (Late st Contact Info) Description 06/07/2023 3:00 PM EDT Office Visit Pulmonary Medicine, [facility] [address] [place] [address] Nir Ward MD [address] [place] [address] 07/27/2023 3:00 PM EDT Office Visit Cardiology, [facility] [place] [address] Laquita Leija CRNP [facility] [place] [address] 07/31/2023 1:30 PM EDT Nurse Only Ancillary [address] [place] [address] [place], Nurse [address] [place] [address] 09/08/2023 1:00 PM EDT Office Visit Gastroenterology [address] [place] [address] Jelly Mills CRNP [address] [place] [address] 09/13/2023 11:15 AM EDT Office Visit Ophthalmology, [facility] [address] [place] [address] Mulugeta Hodges DO [address] [place] [address] 10/31/2023 3:00 PM EDT Office Visit [address] [place] [phone] Susy Ochoa PA-C [address] [place] [address] [place] [address] 02/28/2024 11:00 AM EST Imaging Radiology [address] [place] [address] 05/07/2024 4:00 PM EST Office Visit [address] [place] [phone] Fang Rasheed MD [address] [place] [address] [place] [address] 05/17/2024 12:00 PM EST Office Visit Sleep Disorders Ctr [facility] [address] [place] [phone] Aminata Quiroz CRNP [address] [place] [address] Scheduled Procedures Name Priority Associated Diagnoses Date/Ti me COLONOSCOPY FLEXIBLE PROXIMAL DIAGNOSTIC Recall History of colon polyps Health Maintenance Due Date Last Done Comments Zoster Vaccines (1 of 2) 1996 *ADVANCE DIRECTIVE NOT ON FILE 09/01/2018 DISCUSS TOBACCO CESSATION (REFER TO SMARTSET #3291) 12/02/2021 12/02/2020 COVID-19 Vaccine (2022- season) 2022 Influenza Vaccine (FLU shot) (#1) 2022 12/03/2013 DXA Scan 07/24/2023 07/23/2020, 07/20, 03/25/2013 Depression Screening 07/27/2023 07/26/2022 HbA1c 10/31/2023 05/02/2023, 10/18, 04/26/2022, Additional history exists GFR 11/03/2023 05/05/2023, 04/20, 04/10/2023, Additional history exists CKD PHOS USE SMARTSET 88968 03/27/2024 01/0 10/2023, 04/26/2022, 04/21/2021, Additional history exists Albumin/Creatinine Ratio 05/02/2024 024, 04/26/2022, 08/10/2020, Additional history exists Diabetic Foot Exam 05/02/2024 05/02/2023, 0 04/26/2022, 07/22/2021, Additional history exists CKD HGB USE SMARTSET 73767 05/05/202405/05, 05/02/2023, 05/02/2023, Additional history exists Diabetic [...] this encounter Medical Devices Implanted Type Area Poultry Service Technician Device Identifier Shelf Expiration Date Model / Serial / Lot Gynecare Tvt Device Implanted:Qty: 1 on 06/18/2013 at OR [facility] N/A: Bladder 02/17/2016 [id number] / / [id number] documented as of this encounter Visit Diagnoses Diagnosis Type 2 diabetes mellitus with hemoglobin A1c goal of less than 8.0% (HCC) documented in this encounter Care Teams Pointing Machine Operator Relationship Specialty Start Date End Date Fang Rasheed MD [address] [place] [address] [place] [phone] PCP - General Family Medicine 06/05/15 documented as of this encounter
--- OUTSIDE RECORDS SUMMARY | 2023-06-01 06:44 | External Medical Summary | Summary of Care ---
Author Name Unknown Organization [facility] Address [address] [place] [address] Phone [phone] Care Team Providers Care Outside Medical Sales Representative Name Role Phone Sandra Rasheed MD Primary Care Provide r Reason for Visit * Reason Onset Date Comments Advice 05/29/2023 Encounter Details Date Type Department Care Team (Late st Contact Info) Description 05/29/2023 Telephone Family Medicine [address] [phone] Sandra Rasheed MD [address] [place] [id number] Advice Allergies Active Allergy Reactions Criticality [...] tablets to use x 5 days at [facility] 06-14-18 Take 1 Tab by mouth 3 times a day as needed for Dizziness. Indications: Given script for 8 tablets to use x 5 days at [facility] - 90 Tab 0 10/31/2018 Active CPAP [...] 3 12/26/2022 4 Active OneTouch Delica Plus [id number] :Type 2 diabetes mellitus with hemoglobin A1c goal of less than 8.0% ([facility]) Use to test blood sugar up to twice daily. Dx E11.9 200 Each 3 01/11/2023 Active OneTouch Verio In Vitro Strip (Glucose Blood)Indications:Ty pe 2 diabetes mellitus with hemoglobin A1c goal of less than 8.0% ([facility]) USE TO TEST BLOOD SUGAR UP TO TWICE DAILY 200 Strip 2 02/22/2023 5 Active Nebulizer/Tubing/Sindy thpiece KitIndications:COPD, group D, by GOLD 2017 classification ([facility]) Replacement requested as hers isn't delivering medicine [...] COPD, group D, by GOLD 2017 classification ([facility]) 1 dose inhaled every evening. Rinse mouth [...] nodule 08/14/2019 Coronary artery disease invo lving samish coronary artery of samish heart without angina pectoris 08/30/2018 Diabetes mellitus [...] encounter Miscellaneous Notes * Telephone Encounter - Demi Medina CRNP - 05/30/2023 4:24 PM EDT NOTED. Will address at appt TIN Agrawal, DIP[facility] * Telephone Encounter - Juana Alexander RN - 05/30/2023 2:14 PM EDT Will forward to Demi Rhed to send if agreeable after seeing patient * Telephone Encounter - Paty Rai LPN - 05/30/2023 1:25 PM EDT HH Concerns Elizabeth RN, Calling from: [facility] Report/Concerns of: PT referral, pain and wheezing Symptoms: SP O292 RA Lung sounds wheezing All other VS WNLs Narrative: Elizabeth from [facility] calling PT referral for hip pain placed [...] to continue long-term and add PT through [facility] . Please fax new orders to [phone] * Telephone Encounter - Cha Mcclendon RN [...] 10:40 AM EDT Office Visit Family Practice [facility] [address] [facility] [place] [address] Demi Medina CRNP [address] [facility] [place] [address] 06/07/2023 3:00 PM EDT Office Visit Pulmonary Medicine, [facility] [address] [facility] [place] [address] Nir Ward MD [address] [place] [address] 07/27/2023 3:00 PM EDT Office Visit Cardiology, [facility] [address] [facility] [place] [address] Laquita Leija CRNP [address] [place] [address] 07/31/2023 1:30 PM EDT Nurse Only Ancillary [address] [place] [address] [place], Nurse Annual [address] [place] [address] 09/08/2023 1:00 PM EDT Office Visit Gastroenterology [address] [place] [address] Jelly iMlls CRNP [address] [place] [address] 09/13/2023 11:15 AM EDT Office Visit Ophthalmology, [facility] [address] [place] [address] Mulugeta Hodges, [address] [place] [address] 10/31/2023 3:00 PM EDT Office Visit Family Medicine [address] [place] [phone] Susy Ochoa PA-C [address] [place] [address] [place] [address] 02/28/2024 11:00 AM EST Imaging Radiology [address] [place] [address] 05/07/2024 4:00 PM EST Office Visit Family Medicine [address] [place] [phone] Sandra Rasheed MD [address] [place] [address] [place] [address] 05/17/2024 12:00 PM EST Office Visit Sleep Disorders Ctr [facility] [address] [place] [phone] Aminata Quiroz CRNP [address] [place] [address] Scheduled Procedures Name Priority Associated Diagnoses Date/Ti [...] Additional history exists CKD PHOS USE SMARTSET 70972 03/27/2024 01/0 10/2023, 04/26/2022, 04/21/2021, Additional history exists Albumin/Creatinine Ratio 05/02/20242 024, 04/26/2022, 08/10/2020, Additional history exists Diabetic Foot Exam 05/02/2024 05/02/2023, 0 04/26/2022, 07/22/2021, Additional history exists CKD HGB USE SMARTSET 85605 05/05/202405/05, 05/02/2023, 05/02/2023, Additional history exists Diabetic [...] this encounter Medical Devices Implanted Type Area Flood Control Engineer Device Identifier Shelf Expiration Date Model / Serial / Lot Gynecare Tvt Device Implanted:Qty: 1 on 06/18/2013 at OR [facility] N/A: Bladder 02/17/2016 [id number] / / [id number] documented as of this encounter Care Teams Outside Medical Sales Representative Relationship Specialty Start Date End Date Sandra Rasheed MD [address] [place] [address] [place] [phone] PCP - General Family Medicine 06/05/15 documented as of this encounter
--- OUTSIDE RECORDS SUMMARY | 2023-06-01 06:45 | External Medical Summary | Summary of Care ---
Author Name Unknown Organization [facility] Address [address] [place] [address] Phone [phone] Care Team Providers Care Environmental Conflict Manager Name Role Phone Sandra Rasheed MD Primary Care Provide r Reason for Visit * Reason Comments Follow Up Here return. New CPA P machine to comply with insurance. Starting physical therapy soon since having RSV. Encounter Details Date Type Department Care Team (Late st Contact Info) Description 05/17/2023 10:00 AM EST Office Visit Sleep Disorders Ctr [facility] [address] [facility] [place] [phone] Aminata Quiroz CRNP [address] [facility] [place] [address] Obstructive sleep apnea*; Nocturnal hypoxemia Allergies Active Allergy Reactions Criticality Noted Date [...] tablets to use x 5 days at [facility][1] 06-14-18 Take 1 Tab by mouth 3 times a day as needed for Dizziness. Indications: Given script for 8 tablets to use x 5 days at [facility][1] 06-14-18 90 Tab 0 10/31/2018 Active CPAP [...] by mouth . 1 daily 0 Active glipiZIDE ER 5 MG Oral Tablet Extended Release 24 Hour (Glucotrol XL)Indications:Type 2 diabetes mellitus with hemoglobin A1c goal of less than 8.0% ([facility]) TAKE ONE TABLET BY MOUTH EVERY MORNING 100 Tablet 1 09/15/2022 4 Active Metoprolol Tartrate 25 MG Oral Tablet [...] 3 12/26/2022 4 Active OneTouch Delica Plus [id number] :Type 2 diabetes mellitus with hemoglobin A1c goal of less than 8.0% ([facility]) Use to test blood sugar up to twice daily. Dx E11.9 200 Each 3 01/11/2023 Active OneTouch Verio In Vitro Strip (Glucose Blood)Indications:Ty pe 2 diabetes mellitus with hemoglobin A1c goal of less than 8.0% ([facility]) USE TO TEST BLOOD SUGAR UP TO TWICE DAILY 200 Strip 2 02/22/2023 5 Active Nebulizer/Tubing/Sindy thpiece KitIndications:COPD, group D, by GOLD 2017 classification ([facility]) Replacement requested as hers isn't [...] COPD, group D, by GOLD 2017 classification ([facility]) 1 dose inhaled every evening. [...] 3 days 18 Tablet 0 05/11/2023 Active documented as of this encounter (statuses [...] nodule 08/14/2019 Coronary artery disease invo lving confederated coos coronary artery of confederated coos heart without angina pectoris 08/30/2018 Diabetes mellitus [...] Day Cigarettes 2 58 Smokeless Tobacco: Never Tobacco Cessation:Ready to Q uit: Not Asked; Counseling Given: Not Answered Comments:03/30/22 currently smoking 10-15 cig/day - max [...] on file documented as of this encounter Last Filed Vital Signs Vital Sign Reading Time Taken Comments Blood Pressure 138/78 05/17/2023 9:42 AM EST Pulse 61 05/17/2023 9:42 AM EST Temperature 36.7 C (98.1 F) 05/17/2023 9:42 AM ES T Respiratory Rate 16 05/17/2023 9:42 AM EST Oxygen Saturation 97% 05/17/2023 9:42 AM EST Inhaled Oxygen Concentration - - Weight 83.5 kg (184 lb) 05/17/2023 9:42 AM EST Height 158.8 cm (5' 2.5") 05/17/2023 9:42 AM EST Body Mass Index 33.12 05/17/2023 9:42 AM EST documented in this encounter Progress Notes * Aminata Quiroz CRNP - 05/17/2023 10:02 AM EST [facility] Mildred Moser is a 77 year old female seen today for initial follow-up on replacement CPAP for treatment of moderately severe OMARI. Initially presented for sleep evaluation in 2015 with history of COPD, nocturnal hypoxemia, frequent awakenings with nocturia, and symptoms of RLS. -Split night PSG 03/11/2016 (192 lb, BMI 32): AHI 23, SpO2 luis angel was 72%; corrected with CPAP pressure of 9, PLMAI 12 -HST 11/2021: TANA 6.7, SpO2 luis angel 78% with 260 minutes < 89% -Noct ox 04/14/2022 on CPAP (4-10 cmH2O): SpO2 luis angel 78% with 74 minutes < 89% Interim History: Received replacement CPAP and use nightly during all periods of sleep opportunity. She notes ongoing benefit with use of CPAP. Has been having excessively dry mouth on waking noting that the humidifier tank does run out of water in the knitting demonstrator requiring its be refilled. Some mask fit difficulties as the mask shifts up during use resulting in her eyes drying out. Hospitalized in March with RSV. Daytime oxygen saturations have been good as of recently, by her report. She has been struggling with increased phlegm and difficulty expectorating. She continues tosmoke. Compliance Data: Report date: last 30 days ending 05/13/2023 % total days used: 100 % days used > 4 hours: 100 Average hours per day used: 7 hours 58 mins Large leak: 31 L/min rAHI: 0.2 Pressures: median 11.6, p95% 14.7 Equipment: [facility] Provider: [facility] Device: [id number] Settings: 10-20 cmH20 Interface Type: FFM Humidifier: 5 Cleaning: By hand routinely [place] Sleepiness Scale Question 05/17/2023 9:35 AM EST - Filed by Patient What is the chance you will doze off in the following situation? Sitting and reading Moderate chance of dozing Watching TV No chance of dozing Sitting inactive in a public place, such as a theater or meeting No chance of dozing As a passenger in a car for an hour without a break No chance of dozing Lying down to rest in the afternoon when circumstances permit Moderate chance of dozing When sitting and talking to someone No chance of dozing When sitting quietly after lunch without alcohol No chance of dozing In a car, while stopped for a few minutes in traffic No chance of dozing Score (range: 0 - 24) 4 Problem List: Patient Active Problem List Diagnosis Code Hypertension with goal blood pressure less than 140/80 I10 Advanced directives, counseling/discussion Z71.89 Central retinal vein occlusion H34.8192 Hypertensive retinopathy H35.039 Persistent insomnia G47.00 Tobacco use disorder F17.200 Family history of ischemic heart disease Z82.49 OMARI (obstructive sleep apnea) G47.33 COPD, group D, by GOLD 2017 classification ([facility]) J44.9 Allergy to iodinated contrast Z91.041 Type 2 diabetes mellitus with hemoglobin A1c goal of less than 8.0% ([facility]) E11.9 Gastric ulcer K25.9 MGUS (monoclonal gammopathy of unknown significance) D47.2 Centrilobular emphysema ([facility]) J43.2 Nocturnal hypoxemia G47.34 Diabetes mellitus type 2 with peripheral artery disease ([facility]) E11.51 Coronary artery disease involving confederated coos coronary artery of confederated coos heart without angina pectoris I25.10 Lung nodule R91.1 Gastro-esophageal reflux disease without esophagitis K21.9 Type 2 diabetes mellitus with stage 3b chronic kidney disease, without long-term current use of insulin ([facility]) E11.22, N18.32 Hypertensive kidney disease with stage 3b chronic kidney disease ([facility]) I12.9, N18.32 Pulmonary hypertension ([facility]) I27.20 Type 2 diabetes mellitus with diabetic cataract ([facility]) E11.36 Dyslipidemia, goal LDL below 70 E78.5 Constipation K59.00 Immunization not carried out because of patient decision Z28.20 Chronic diastolic congestive heart failure ([facility]) I50.32 Type 2 diabetes mellitus with diabetic neuropathy, without long-term current use of insulin ([facility]) E11.40 Current Medications: Outpatient Medications Marked as Taking for the 05/17/23 encounter (Office Visit) with Aminata Quiroz CRNP Medication Sig predniSONE 20 MG Oral Tablet (Deltasone) 1 tab 3 times a day for 3 days, then 1 tab 2 times a day for 3 days, then 1 tab daily for 3 days Lidocaine 5 % External Patch (Lidoderm) Place 1 Patch topically on the skin daily. oxyCODONE HCl 5 MG Oral Tablet (Oxy IR) Take 1 Tablet by mouth every 6 hours as needed. Torsemide 10 MG Oral Tablet (Demadex) TAKE ONE TABLET BY MOUTH ONCE DAILY TAKE ONE ADDITIONAL TABLET BY MOUTH IN THE AFTERNOON ON MONDAY, MONDAY AND MONDAY Dicyclomine HCl 10 MG Oral Capsule (Bentyl) Take 1 Capsule by mouth 2 times a day as needed for Cramping. Anoro Ellipta 62.5-25 MCG/ACT Inhalation Aerosol Powder Breath Activated (umeclidinium-vilanterol) Inhale 1 dose by mouth every morning. Arnuity Ellipta 200 MCG/ACT Inhalation Aerosol Powder Breath Activated (fluticasone Furoate) 1 doseinhaled every evening. Rinse mouth after use. B Complex Oral Capsule Take 1 Capsule by mouth in the morning. Nebulizer/Tubing/Mouthpiece Kit Replacement requested as hers isn't delivering medicine well and isold. DME: [facility] OneTouch Verio In Vitro Strip (Glucose Blood) USE TO TEST BLOOD SUGAR UP TO TWICE DAILY OneTouch Delica Plus [id number] Use to test blood sugar up to twice daily. Dx E11.9 Atorvastatin Calcium 40 MG Oral Tablet (Lipitor) Take 1 Tablet by mouth every day Omeprazole 20 MG Oral Capsule Delayed Release (PriLOSEC) Take 1 Capsule by mouth in the morning. Spironolactone 25 MG Oral Tablet (Aldactone) TAKE ONE TABLET BY MOUTH ON MONDAY, MONDAY, AND MONDAY. TAKE ONE-HALF TABLET ON ALL OTHER DAYS OF THE WEEK Losartan Potassium 50 MG Oral Tablet (Cozaar) TAKE ONE TABLET BY MOUTH EVERY DAY glipiZIDE ER 5 MG Oral Tablet Extended Release 24 Hour (Glucotrol XL) TAKE ONE TABLET BY MOUTH EVERY MORNING Metoprolol Tartrate 25 MG Oral Tablet (Lopressor) TAKE ONE-HALF TABLET BY MOUTH TWICE A DAY. Ipratropium-Albuterol 0.5-2.5 (3) MG/3ML Inhalation Solution (Duoneb) INHALE ONE VIAL VIA NEBULIZEREVERY 6 HOURS NEEDED FOR DYSPNEA Albuterol Sulfate HFA 108 (90 Base) MCG/ACT Inhalation Aerosol Solution INHALE TWO PUFFS BY MOUTH EVERY 4 HOURS NEEDED FOR COUGH, FOR SHORTNESS OF BREATH, OR WHEEZING Calcium Carb-Cholecalciferol 600-1000 MG-UNIT Oral Capsule Take by mouth . 1 daily Vitamin C 1000 MG Oral Tablet Take 1 Tablet by mouth in the morning. 1 tab daily in the winter. Olopatadine HCl 0.2 % Ophthalmic Solution (Patada) Instill 1 Drop into both eyes daily. CPAP every night at bedtime. meclizine (ANTIVERT) 25 MG Tablet Take 1 Tab by mouth 3 times a day as needed for Dizziness. Indications: Given script for 8 tablets to use x 5 days at [facility][1] 06-14-18 Cholecalciferol 1000 UNITS Capsule Take 1 Capsule by mouth at bedtime. ASPIRIN 81 MG PO TABS Take by mouth at bedtime. Physical Exam: BP 138/78 | Pulse 61 | Temp 36.7 C (98.1 F) (Tympanic) | Resp 16 | Ht 1.588 m (5' 2.5") | Wt 83.5 kg (184 lb) | SpO2 97% | BMI 33.12 kg/m | BSA 1.92 m Constitutional: Alert, oriented and in no acute distress, loose intermittent cough Skin: No abnormal mask markings on face Cardio: Regular rate and rhythm, no murmur Chest: Normal respiratory effort at rest, very diminished breath sounds throughout bynum Neuro: Fluent speech Psych: Appropriate mood and affect. Assessment & Plan: Encounter Diagnoses Name Primary? Obstructive sleep apnea Yes Nocturnal hypoxemia Moderately severe obstructive sleep apnea based on AHI criteria diagnosed in 2016. She is compliant, therapeutic and benefiting with PAP treatment. rAHI is 0.2 on autoCPAP 10-20 cm H2O Humidifier setting adjusted from 5 to 4 to see if the tank can last for the entire night. Overnight oximetry on current setting. Consider narrowing pressure range further if needed Continue use of CPAP to include all periods of sleep opportunity. Routine cleaning and change of supplies as needed was encouraged. Return pulmonary visit - hospital discharge requested. She is agreeable to establishing with a Supervisor Pipe Finishing. [facility] I spent a total of 40-54 minutes (exact time 42 mins) on the date of service in preparation, delivery, and documentation of the care provided to Mildred Moser excluding any time spent in the performance of separately billed services. documented in this encounter Nursing Notes * Lori Ahuja LPN - 05/17/2023 9:44 AM EST Chief Complaint Patient presents with Follow Up Here return. New CPAP machine to comply with insurance. Starting physical therapy soon since havingRSV. DME: [facility]. [place] Sleepiness Scale Question 05/17/2023 9:35 AM EST - Filed by Patient What is the chance you will doze off in the following situation? Sitting and reading Moderate chance of dozing Watching TV No chance of dozing Sitting inactive in a public place, such as a theater or meeting No chance of dozing As a passenger in a car for an hour without a break No chance of dozing Lying down to rest in the afternoon when circumstances permit Moderate chance of dozing When sitting and talking to someone No chance of dozing When sitting quietly after lunch without alcohol No chance of dozing In a car, while stopped for a few minutes in traffic No chance of dozing Score (range: 0 - 24) 4 Travel Screening Question 05/17/2023 9:35 AM EST - Filed by Patient Do you have any of the following new or worsening symptoms? Shortness of breath None of these Have you recently been in contact with someone who was sick? No / Unsure documented in this encounter Plan of Treatment Upcoming Encounters Date Type Department Care Team (Late st Contact Info) Description 06/07/2023 3:00 PM EDT Office Visit Pulmonary Medicine, [facility] [address] [facility] [place] [address] Nir Ward MD [address] [place] [address] 07/27/2023 3:00 PM EDT Office Visit Cardiology, [facility] [address] [facility] [place] [address] Laquita Leija CRNP [address] [place] [address] 07/31/2023 1:30 PM EDT Nurse Only Ancillary [address] [place] [address] [place], Nurse Annual [address] [place] [address] 09/08/2023 1:00 PM EDT Office Visit Gastroenterology [address] [place] [address] Jelly Mills CRNP [address] [place] [address] 09/13/2023 11:15 AM EDT Office Visit Ophthalmology, [facility] [address] [place] [address] Mulugeta Hodges, [address] [place] [address] 10/31/2023 3:00 PM EDT Office Visit Family Medicine [address] [place] [phone] Susy Ochoa PA-C [address] [place] [address] [place] [address] 02/28/2024 11:00 AM EST Imaging Radiology [address] [place] [address] 05/07/2024 4:00 PM EST Office Visit Family Medicine [address] [place] [phone] Sandra Rasheed MD [address] [place] [address] [place] [address] 05/17/2024 12:00 PM EST Office Visit Sleep Disorders Ctr [facility] [address] [place] [phone] Aminata Quiroz CRNP [address] [place] [address] Scheduled Orders Name Type Priority Associated Diagnoses Orde r Schedule NOCTURNAL HOME OXIMETRY (OP) Procedures Routine Obstructive sleep apnea Nocturnal hypoxemia Ordered: 05/17/2023 Scheduled Procedures Name Priority Associated Diagnoses Date/Ti [...] Additional history exists CKD PHOS USE SMARTSET 66441 03/27/2024 01/0 10/2023, 04/26/2022, 04/21/2021, Additional history exists Albumin/Creatinine Ratio 05/02/2024 024, 04/26/2022, 08/10/2020, Additional history exists Diabetic Foot Exam 05/02/2024 05/02/2023, 0 04/26/2022, 07/22/2021, Additional history exists O2 ASSESSMENT COMPLETED IN PAST YEAR FOR COPD 05/02/2024 05/02/2023 CKD HGB USE SMARTSET 11077 05/05/202405/05, 05/02/2023, 05/02/2023, Additional history exists Diabetic Eye Exam 05/10/2024 05/10/2023, , 08/10/2022, Additional history exists COLONOSCOPY-EVERY 3 YRS AGES 18-100 07/13/2025 07/13/2022, [...] this encounter Medical Devices Implanted Type Area Secretary Board Of Commissioners Device Identifier Shelf Expiration Date Model / Serial / Lot Gynecare Tvt Device Implanted:Qty: 1 on 06/18/2013 at OR [facility] N/A: Bladder 02/17/2016 [id number] / / [id number] documented as of this encounter Visit Diagnoses Diagnosis Obstructive sleep apnea- Primary Obstructive sleep apnea (adult) (pediatric) Nocturnal hypoxemia Hypoxemia documented in this encounter Care Teams Environmental Conflict Manager Relationship Specialty Start Date End Date Sandra Rasheed MD [address] [place] [address] [place] [address] PCP - General Family Medicine 06/05/15 documented as of this encounter
--- OUTSIDE RECORDS SUMMARY | 2023-06-01 06:45 | External Medical Summary | Summary of Care ---
Author Name Unknown Organization [facility] Address [address] [place] [address] Phone [phone] Care Team Providers Care Performance Management Consultant Name Role Phone Sandra Rasheed MD Primary Care Provide r Reason for Visit * Reason Onset Date Comments Advice 05/05/2023 Follow up on Mon , tx for UTI Encounter Details Date Type Department Care Team (Late st Contact Info) Description 05/05/2023 Telephone Family Medicine [address] [phone] Sandra Rasheed MD [address] [place] [address] Advice (Follow up on Mon, tx for UTI) Allergies Active Allergy Reactions Criticality Noted Date Comments Influenza Vaccines 01/06/2015 Had flu symptoms x 1 month after injection Iodinated Contrast Media High 09/01/2016 Hives 48 hours post cardiac cath. No respiratory symptoms Sulfa Antibiotics Unknown 02/22/2013 documented as of this encounter (statuses as of 05/10/2023) Medications Medication Sig Dispensed Refills Start Date End Date Status ASPIRIN 81 MG PO TABS Take by mouth at bedtime. 0 Active Cholecalciferol 1000 UNITS Capsule Take 1 Capsule by mouth at bedtime. 30 Cap 3 7 Active meclizine (ANTIVERT) 25 MG TabletIndications:G iven script for 8 tablets to use x 5 days at [facility] 06-14-18 Take 1 Tab by mouth 3 times a day as needed for Dizziness. Indications: Given script for 8 tablets to use x 5 days at [facility] 06-14-18 90 Tab 0 9 Active CPAP every night at bedtime. 0 Active Olopatadine HCl 0.2 % Ophthalmic Solution (Pataday) Instill 1 Drop into both eyes daily. 5 mL 12 1 Active Vitamin C 1000 MG Oral Tablet Take 1 Tablet by mouth in the morning. 1 tab daily in the winter. 0 Active Calcium Carb-Cholecalcifero l 600-1000 MG-UNIT Oral Capsule Take by mouth . 1 daily 0 Active glipiZIDE ER 5 MG Oral Tablet Extended Release 24 Hour (Glucotrol XL)Indications:Type 2 diabetes mellitus with hemoglobin A1c goal of less than 8.0% ([facility]) TAKE ONE TABLET BY MOUTH EVERY MORNING 100 Tablet 1 3 09/15/19 24 Active Metoprolol Tartrate 25 MG Oral Tablet (Lopressor)Indicati ons:Hypertensive kidney disease with stage 3b chronic kidney disease (HCC),Hypertension with goal blood pressure less than 140/80 TAKE ONE-HALF TABLET BY MOUTH TWICE A DAY. 90 Tablet 3 3 09/09/19 24 Active Ipratropium-Albuter ol 0.5-2.5 (3) MG/3ML Inhalation Solution (Duoneb) INHALE ONE VIAL VIA NEBULIZER EVERY 6 HOURS NEEDED FOR DYSPNEA 1080 mL 5 3 07/26/19 24 Active Albuterol Sulfate HFA 108 (90 Base) MCG/ACT Inhalation Aerosol Solution INHALE TWO PUFFS BY MOUTH EVERY 4 HOURS NEEDED FOR COUGH, FOR SHORTNESS OF BREATH, OR WHEEZING 54 g 3 3 05/31/19 24 Active Losartan Potassium 50 MG Oral Tablet (Cozaar)Indications :Hypertension with goal blood pressure less than 140/80 TAKE ONE TABLET BY MOUTH EVERY DAY 100 Tablet 4 3 10/24/19 24 Active Spironolactone 25 MG Oral Tablet (Aldactone)Indicati ons:Hypertension goal BP (blood pressure) < 150/90,Localized edema TAKE ONE TABLET BY MOUTH ON MONDAY, MONDAY, AND MONDAY. TAKE ONE-HALF TABLET ON ALL OTHER DAYS OF THE WEEK 64 Tablet 3 3 12/19/19 24 Active Atorvastatin Calcium 40 MG Oral Tablet (Lipitor)Indication s:Dyslipidemia, goal LDL below 130,Hypertension goal BP (blood pressure) < 150/90 Take 1 Tablet by mouth every day 90 Tablet 3 3 12/26/19 24 Active Omeprazole 20 MG Oral Capsule Delayed Release (PriLOSEC)Indicatio ns:Hypertension goal BP (blood pressure) < 150/90 Take 1 Capsule by mouth in the morning. 90 Capsule 3 3 12/26/19 24 Active OneTouch Delica Plus [id number] s:Type 2 diabetes mellitus with hemoglobin A1c goal of less than 8.0% ([facility]) Use to test blood sugar up to twice daily. Dx E11.9 200 Each 3 3 Active OneTouch Verio In Vitro Strip (Glucose Blood)Indications:T ype 2 diabetes mellitus with hemoglobin A1c goal of less than 8.0% ([facility]) USE TO TEST BLOOD SUGAR UP TO TWICE DAILY 200 Strip 2 3 03/29/19 25 Active Nebulizer/Tubing/Mo uthpiece KitIndications:COPD , group D, by GOLD 2017 classification ([facility]) Replacement requested as hers isn't delivering medicine well and is old. DME: [facility] 1 Kit 0 3 Active B Complex Oral Capsule Take 1 Capsule by mouth in the morning. 0 Active Anoro Ellipta 62.5-25 MCG/ACT Inhalation Aerosol Powder Breath Activated (umeclidinium-vilan terol) Inhale 1 dose by mouth every morning. 180 Each 3 3 Active Arnuity Ellipta 200 MCG/ACT Inhalation Aerosol Powder Breath Activated (fluticasone Furoate)Indications :COPD, group D, by GOLD 2017 classification ([facility]) 1 dose inhaled every evening. Rinse mouth after use. 90 Each 3 3 Active Dicyclomine HCl 10 MG Oral Capsule (Bentyl) Take 1 Capsule by mouth 2 times a day as needed for Cramping. 60 Capsule 1 4 Active Torsemide 10 MG Oral Tablet (Demadex)Indication s:Hypertension with goal blood pressure less than 140/80,Localized edema TAKE ONE TABLET BY MOUTH ONCE DAILY TAKE ONE ADDITIONAL TABLET BY MOUTH IN THE AFTERNOON ON MONDAY, MONDAY AND LACHO 135 Tablet 1 4 Active Alfuzosin HCl ER 10 MG Oral Tablet Extended Release 24 Hour (Uroxatral) Take 1 Tablet by mouth in the morning. 14 Tablet 0 4 05/08/19 24 Discontinued documented as of this encounter (statuses as of 05/10/2023) Active Problems Problem Noted Date Diagnosed Date [...] nodule 08/14/2019 Coronary artery disease invo lving [place] coronary artery of [place] heart without angina pectoris 08/30/2018 Diabetes mellitus [...] as of this encounter (statuses as of 05/10/2023) Resolved Problems Problem Noted Date Diagnosed Date [...] as of this encounter (statuses as of 05/10/2023) Immunizations Name Administration Dates Next Due HEP [...] 07/26/2022 Hunger Vital Sign Answer Date Recorded Worried About Running Out of Food in the Last Ye ar Never true 03/05/2019 Ran Out of Food in the Last Year Never true 03/05/2019 Sex and Gender Information Value Date Recorded Sex Assigned at Female 07/21/2020 3:22 PM EDT Gender Identity Female 07/21/2020 3:22 PM EDT Sexual Orientation Straight 07/21/2020 3: 22 PM EDT Job Start Date Occupation Industry Not on file Not on file Not on file documented as of this encounter Miscellaneous Notes * Telephone Encounter - Cha Mcclendon RN - 05/10/2023 2:08 PM EST Spoke to patient and she is feeling a little better. * Telephone Encounter - Cha Mcclendon RN - 05/08/2023 12:52 PM EST Patient notified that prescription was called in. * Telephone Encounter - Sandra Rasheed MD - 05/08/2023 12:47 PM EST Please see other phone call. Urine culture is positive and I sent her an Abx * Telephone Encounter - Cha Mcclendon RN - 05/08/2023 12:34 PM EST I did call patient today to see how she is feeling, Patient states she did go to [facility] because the pain got so bad. Patient states they did do a CTS and did not see a kidney stone. Patient was given oxycodone 5mg and Lidocaine patches, she did not fill the alfuzosin that Dr. Cardona prescribed last week due to the cost of the other meds ($76) while we waiting for a urine culture. UC not finalized in epic: Prelim report Culture Growth >100,000 colonies/mL Gram positive cocci in chains Abnormal <10,000 colonies/ml mixed normal ignacio Patient states pain is still really bad, it is located on the right flank area again. At times painis an 8. Review of patient's allergies indicates: Allergen Reactions Iodinated Contrast Media Hives 48 hours post cardiac cath. No respiratory symptoms Influenza Vaccines Had flu symptoms x 1 month after injection Sulfa Antibiotics Unknown [facility] [employer] Message to Dr. Rasheed for advice. * Telephone Encounter - Patty Cardona DO - 05/05/2023 1:29 PM EST Has sulfa allergy - alfuzosin sent to pharmacy. * Telephone Encounter - Cha Mcclendon RN - 05/05/2023 12:53 PM EST Patient does use [address] [facility] Message sent to Dr. Cardona to send prescription * Telephone Encounter - Cha Mcclendon RN - 05/05/2023 12:38 PM EST I will verify pharmacy when patient comes in for specimen. [facility] [employer] * Telephone Encounter - Cha Mcclendon RN - 05/05/2023 11:25 AM EST Patient called states she saw Sandra Rasheed MD on 05/02 right flank pain since Monday. UA doneneg for blood, trace protein. Patient continues to increase her fluids, Sandra Rasheed MD did want patient to increase her torsemide 10mg BID for the rest of the week. Last night pain got worse, she said it has moved to lower back and radiated around her waist to abdomen. Patient states it almost "put her to her knees last night" pain is also worse with urination. Patient has noticed odor withurination and dark in color even though she is "drinking lots". Patient has no h/o kidney stones and denies any blood in urine. I will message Dr. Cardona for advice since Sandra Rasheed MD is Out of office. documented in this encounter Plan of Treatment Upcoming Encounters Date Type Department Care Team (Late st Contact Info) Description 06/02/2023 11:00 AM EDT Office Visit Sleep Disorders Ctr [facility] [address] [phone] Aminata Quiroz CRNP [address] [address] 07/27/2023 3:00 PM EDT Office Visit Cardiology, [facility] [address] [address] Laquita Leija CRNP [address] [address] 07/31/2023 1:30 PM EDT Nurse Only Ancillary [address] [place] [address] Hank, Nurse [address] [place] [address] 09/06/2023 10:00 AM EDT Office Visit Sleep Disorders Ctr [facility] [address] [phone] Aminata Quiroz CRNP [address] [place] [address] 09/08/2023 1:00 PM EDT Office Visit Gastroenterology [address] [place] [address] Jelly Mills CRNP [address] [place] [address] 09/13/2023 11:15 AM EDT Office Visit Ophthalmology, [facility] [address] [address] Mulugeta Hodges DO [address] [place] [address] 10/31/2023 3:00 PM EDT Office Visit Family Medicine [address] [place] [phone] Susy Ochoa PA-Mykel [address] [place] [address] [place] [address] 02/28/2024 11:00 AM EST Imaging Radiology [address] [place] [address] 05/07/2024 4:00 PM EST Office Visit Family Medicine [address] [place] [phone] Sandra Rasheed MD [address] [place] [address] [place] [address] Scheduled Procedures Name Priority Associated Diagnoses Date/Ti [...] Additional history exists CKD PHOS USE SMARTSET 68426 03/27/2024 01/0 10/2023, 04/26/2022, 04/21/2021, Additional history exists Albumin/Creatinine Ratio 05/02/2024 024, 04/26/2022, 08/10/2020, Additional history exists Diabetic Foot Exam 05/02/2024 05/02/2023, 0 04/26/2022, 07/22/2021, Additional history exists O2 ASSESSMENT COMPLETED IN PAST YEAR FOR COPD 05/02/2024 05/02/2023 CKD HGB USE SMARTSET 81684 05/05/202405/05, 05/02/2023, 05/02/2023, Additional history exists Diabetic [...] this encounter Medical Devices Implanted Type Area Flotation Operator Device Identifier Shelf Expiration Date Model / Serial / Lot Gynecare Tvt Device Implanted:Qty: 1 on 06/18/2013 at OR [facility] N/A: Bladder 02/17/2016 [id number] / / [id number] documented as of this encounter Results * (ABNORMAL) CULTURE, URINE, QUANTITATIVE (05/05/2023 12:38 PM EST) Culture Growth >100,000 colonies/mL Streptococcus anginosus group(A) 05/08/2023 2:52 PM EST [facility] Urine Urine specimen obtained by clean catch procedure / Unknown Non-blood Collection / Unknown 05/05/2023 12:38 PM EST 05/05/2023 12:38 PM EST Narrative [facility] - 05/08/2023 2:52 PM EST <10,000 colonies/ml mixed normal ignacio Sandra Rasheed MD LAB MICRO - G ENERAL ORDERABLES [facility] [address] [place] [address] * (ABNORMAL) URINALYSIS WITH MICROSCOPIC EXAM (05/05/2023 12:38 PM EST) Color, Urine Yellow Colorless, Light Yellow, Yellow, Dark Yellow 05/05/2023 10:16 PM EST [facility] Clarity, Urine Clear Clear 05/05/2023 10:16 PM EST [facility] Glucose, Urine Negative Negative mg/dL 05/05/2023 10:16 PM EST [facility] Bilirubin, Urine Negative Negative 05/05/2023 10:16 PM EST [facility] Ketone, Urine Negative Negative mg/dL 05/05/2023 10:16 PM EST [facility] Specific [place], Urine 1.027 1.003 - 1.030 05/05/2023 10:16 PM EST [facility] Blood, Urine Negative Negative 05/05/2023 10:16 PM EST [facility] pH, Urine 6.5 5.0 - 7.5 Units 05/05/2023 10:16 PM EST [facility] Protein, Urine 30(A) Negative mg/dL 05/05/2023 10:16 PM EST [facility] Urobilinogen, Urine Normal Normal mg/dL 05/05/2023 10:16 PM EST [facility] Nitrite, Urine Negative Negative 05/05/2023 10:16 PM EST [facility] Esterase, Urine Negative Negative 05/05/2023 10:16 PM EST [facility] RBC, Urine 0-2 0 - 2 /HPF 05/05/2023 10:16 PM EST [facility] WBC, Urine 0-2 0 - 2 /HPF 05/05/2023 10:16 PM EST [facility] Bacteria, Urine 0-25 0 - 25 /HPF 05/05/2023 10:16 PM EST [facility] Squamous Epithelial Cells, Urine Many(A) None /HPF 05/05/2023 10:16 PM EST [facility] Urine Urine specimen obtained by clean catch procedure / Unknown Non-blood Collection / Unknown 05/05/2023 12:38 PM EST 05/05/2023 12:38 PM EST Sandra Rasheed MD LAB URINE ORD ERABLES Performing Organization Address City/State/[facility] Co de Phone Number [facility] [address] [facility] [place] [address] documented in this encounter Visit Diagnoses Diagnosis Pain with urination- Primary Renal colic Flank pain Abdominal pain, unspecified site documented in this encounter Care Teams Performance Management Consultant Relationship Specialty Start Date End Date Sandra Rasheed MD [address] [place] [address] [place] [address] PCP - General Family Medicine 06/05/15 documented as of this encounter
--- OUTSIDE RECORDS SUMMARY | 2023-06-01 06:45 | External Medical Summary | Summary of Care ---
Author Name Unknown Organization [facility] Address [address] [place] [address] Phone [phone] Care Team Providers Care Header Up Name Role Phone Sandra Rasheed MD Primary Care Provide r Reason for Visit * Reason Onset Date Comments Appointment 04/26/2023 Encounter Details Date Type Department Care Team (Late st Contact Info) Description 04/26/2023 Telephone Family Medicine [address] [phone] Sandra Rasheed MD [address] [place] [address] Appointment Allergies Active Allergy Reactions Criticality Noted Date [...] tablets to use x 5 days at [facility] 06-14-18 Take 1 Tab by mouth 3 times a day as needed for Dizziness. Indications: Given script for 8 tablets to use x 5 days at [facility] 06-14-18 90 Tab 0 10/31/2018 Active CPAP [...] 3 12/26/2022 4 Active OneTouch Delica Plus [id number] s:Type 2 diabetes mellitus with hemoglobin A1c goal of less than 8.0% ([facility]) Use to test blood sugar up to twice daily. Dx E11.9 200 Each 3 01/11/2023 Active OneTouch Verio In Vitro Strip (Glucose Blood)Indications:T ype 2 diabetes mellitus with hemoglobin A1c goal of less than 8.0% ([facility]) USE TO TEST BLOOD SUGAR UP TO TWICE DAILY 200 Strip 2 02/22/2023 5 Active Nebulizer/Tubing/Mo uthpiece KitIndications:COPD , group D, by GOLD 2017 classification ([facility]) Replacement requested as hers isn't [...] :COPD, group D, by GOLD 2017 classification ([facility]) 1 dose inhaled every evening. [...] MONDAY, MONDAY AND MONDAY 135 Tablet 1 09/27/2022 4 Discontinu ed(Refill) documented as of this [...] nodule 08/14/2019 Coronary artery disease invo lving [place] coronary artery of [place] heart without angina pectoris 08/30/2018 Diabetes mellitus [...] encounter Miscellaneous Notes * Telephone Encounter - Manish Lawrence OSA - 05/10/2023 2:48 PM EST Cx came up on 05/17/23. I contacted patient and she accepted. I cancelled May appt * Telephone Encounter - Cha Mcclendon RN - 04/27/2023 10:15 AM EST Thanks patient notified * Telephone Encounter - Manish Lawrence OSA - 04/27/2023 9:56 AM EST I will watch for cancellation and will attempted to contact pt. * Telephone Encounter - Cha Mcclendon RN - 04/26/2023 4:06 PM EST Patient is on for 06/01 with Aminata Quiroz, she has received 5 text saying there is a earlier appointments available, but by the time she gets to the Patient Portal its already gone. If anyone could call her with an earlier appointment she would like that since she is not quick enough on the computer. I will message sleep med to see if patient can be put on a calling wait list. Patient states she can do any day or time. Reason for Call: No chief complaint on file. Contact: Telephone Call Contact Type: Follow-up Outcome: see note Face to face time spent with Patient (minutes): 0 Total Time including non face to face (minutes): 10 documented in this encounter Plan of Treatment Upcoming Encounters Date Type Department Care Team (Late st Contact Info) Description 05/17/2023 10:00 AM EST Office Visit Sleep Disorders Ctr [facility] [address] [phone] Aminata Quiroz CRNP [address] [address] [address] 07/27/2023 3:00 PM EDT Office Visit Cardiology, [facility] [address] [address] Laquita Leija CRNP [address] [address] 07/31/2023 1:30 PM EDT Nurse Only Ancillary [address] [place] [address] Movjeniferey, Nurse [address] [place] [address] 09/06/2023 10:00 AM EDT Office Visit Sleep Disorders Ctr [facility] [address] [phone] Aminata Quiroz CRNP [address] [address] 09/08/2023 1:00 PM EDT Office Visit Gastroenterology [address] [place] [address] Jelly Mills CRNP [address] [place] [address] 09/13/2023 11:15 AM EDT Office Visit Ophthalmology, [facility] [address] [facility] [place] [address] Mulugeta Hodges DO 132 [facility] [place] [address] 10/31/2023 3:00 PM EDT Office Visit Family Medicine [address] [place] [phone] Susy Ochoa PA-C [address] [place] [address] [place] [address] 02/28/2024 11:00 AM EST Imaging Radiology [address] [place] [address] 05/07/2024 4:00 PM EST Office Visit Family Medicine [address] [place] [phone] Sandra Rasheed MD [address] [place] [address] [place] [address] Scheduled Procedures Name Priority Associated Diagnoses Date/Ti me COLONOSCOPY FLEXIBLE PROXIMAL DIAGNOSTIC Recall History of colon polyps Health Maintenance Due Date Last Done Comments Zoster Vaccines (1 of 2) 1996 *ADVANCE DIRECTIVE NOT ON FILE 09/01/2018 DISCUSS TOBACCO CESSATION (REFER TO SMARTSET #3291) 12/02/2021 12/02/2020 COVID-19 Vaccine (2022-24 season) 2022 Influenza Vaccine (FLU shot) (#1) 2022 12/03/2013 DXA Scan 07/24/2023 07/23/2020, 07/20, 03/25/2013 Depression Screening 07/27/2023 07/26/2022 HbA1c 10/31/2023 05/02/2023, 10/18, 04/26/2022, Additional history exists GFR 11/03/2023 05/05/2023, 04/20, 04/10/2023, Additional history exists CKD PHOS USE SMARTSET 87684 03/27/202410/2023, 04/26/2022, 04/21/2021, Additional history exists Albumin/Creatinine Ratio 05/02/2024 024, 04/26/2022, 08/10/2020, Additional history exists Diabetic Foot Exam 05/02/2024 05/02/2023, 0 04/26/2022, 07/22/2021, Additional history exists O2 ASSESSMENT COMPLETED IN PAST YEAR FOR COPD 05/02/2024 05/02/2023 CKD HGB USE SMARTSET 21791 05/05/202405/05, 05/02/2023, 05/02/2023, Additional history exists Diabetic [...] this encounter Medical Devices Implanted Type Area Yarder Engineer Device Identifier Shelf Expiration Date Model / Serial / Lot Gynecare Tvt Device Implanted:Qty: 1 on 06/18/2013 at OR [facility] N/A: Bladder 02/17/2016 [id number] / / [id number] documented as of this encounter Care Teams Header Up Relationship Specialty Start Date End Date Sandra Rasheed MD [address] [place] [address] [place] [phone] PCP - General Family Medicine 06/05/15 documented as of this encounter
--- OUTSIDE RECORDS SUMMARY | 2023-06-01 06:45 | External Medical Summary | Summary of Care ---
Author Name Unknown Organization [facility] Address [address] [place] [address] Phone [phone] Care Team Providers Care Hair Blender Name Role Phone Sandra Rasheed MD Primary Care Provide r Reason for Referral * Evaluate & Treat - Unlimited Visits (Within 10 days (routine)) - Authorized Specialty Diagnoses / Procedures Referred By Monse orellana Referred To Contact Physical Therapy / Physical Medicine And Rehab Diagnoses Acute right-sided low back pain without sciatica Sandra Rasheed MD [address] [place] [address] [place] [address] Referral ID Status Reason Start Date Expiration Date Visits Requested Visits Authorized [id number] Authorized Specialty Services Required 05/11/[phone] Question Answer Referral Priority Within 10 days (routine) Where should this appointment be scheduled? [facility] Reason for Visit * Reason Onset Date Comments Advice 05/11/2023 I will call teddy ent Monday to see if prednisone helped Encounter Details Date Type Department Care Team (Late st Contact Info) Description 05/11/2023 Telephone Ancillary Sandra [address] [place] [address] Sandra Rasheed MD [address] [place] [address] [place] [address] Advice (I will call patient Monday to see ... Allergies Active Allergy Reactions Criticality Noted Date Comments Influenza Vaccines 01/06/2015 Had flu symptoms x 1 month after injection Iodinated Contrast Media High 09/01/2016 Hives 48 hours post cardiac cath. No respiratory symptoms Sulfa Antibiotics Unknown 02/22/2013 documented as of this encounter (statuses as of 05/15/2023) Medications Medication Sig Dispensed Refills Start Date End Date Status ASPIRIN 81 MG PO TABS Take by mouth at bedtime. 0 Active Cholecalciferol 1000 UNITS Capsule Take 1 Capsule by mouth at bedtime. 30 Cap 3 09/09/2016 Active meclizine (ANTIVERT) 25 MG TabletIndications:Gi daren script for 8 tablets to use x 5 days at [facility] 06-14-18 Take 1 Tab by mouth 3 times a day as needed for Dizziness. Indications: Given script for 8 tablets to use x 5 days at [facility] 06-14-18 90 Tab 0 10/31/2018 Active CPAP every night at bedtime. 0 Active Olopatadine HCl 0.2 % Ophthalmic Solution (Chong) Instill 1 Drop into both eyes daily. [...] 3 12/26/2022 4 Active OneTouch Delica Plus [id number] :Type 2 diabetes mellitus with hemoglobin A1c goal of less than 8.0% ([facility]) Use to test blood sugar up to twice daily. Dx E11.9 200 Each 3 01/11/2023 Active OneTouch Verio In Vitro Strip (Glucose Blood)Indications:Ty pe 2 diabetes mellitus with hemoglobin A1c goal of less than 8.0% ([facility]) USE TO TEST BLOOD SUGAR UP TO TWICE DAILY 200 Strip 2 02/22/2023 5 Active Nebulizer/Tubing/Sindy thpiece KitIndications:COPD, group D, by GOLD 2017 classification ([facility]) Replacement requested as hers isn't [...] COPD, group D, by GOLD 2017 classification (HCC) 1 dose inhaled every evening. Rinse mouth [...] AND MONDAY 135 Tablet 1 05/05/2023 Active Cephalexin 500 MG Oral Capsule (Keflex) Take 1 Capsule by mouth in the morning and 1 Capsule before bedtime. Do all this for 7 days. 14 Capsule 0 05/08/2023 Active Lidocaine 5 % External Patch (Lidoderm) [...] as of this encounter (statuses as of 05/15/2023) Active Problems Problem Noted Date Diagnosed Date [...] nodule 08/14/2019 Coronary artery disease invo lving inaja coronary artery of inaja heart without angina pectoris 08/30/2018 Diabetes mellitus [...] as of this encounter (statuses as of 05/15/2023) Resolved Problems Problem Noted Date Diagnosed Date [...] as of this encounter (statuses as of 05/15/2023) Immunizations Name Administration Dates Next Due HEP [...] Telephone Encounter - Cha Mcclendon RN - 05/15/2023 12:37 PM EST I called patient she is feeling better , [facility] did call and set her up for 06/04. Reason for Call: Advice (I will call patient Monday to see if prednisone helped) Contact: Telephone Call Contact Type: Advice Outcome: see note Face to face time spent with Patient (minutes): 0 Total Time including non face to face (minutes): 20 * Telephone Encounter - Adia Hardin OSA - 05/12/2023 12:40 PM EST Referral faxed to [facility] at [phone]. They will call pt to schedule. * Telephone Encounter - Cha Mcclendon RN - 05/12/2023 11:49 AM EST Patient called back today and states [facility] will accept her insurance for PHYSICAL THERAPY, I will message scheduling to set up with [facility]. Can you please let patient know when it is done. * Telephone Encounter - Sandra Rasheed MD - 05/11/2023 11:45 AM EST Signed PT referral * Telephone Encounter - Cha Mcclendon RN - 05/11/2023 11:15 AM EST Patient notified and will try the prednisone, she is willing to do physical therapy if her insurance covers it, it its not covered she can't afford it. Message sent to provider to place Physical Therapy Reason for Call: Advice Contact: Telephone Call Contact Type: Advice Outcome: see note Face to face time spent with Patient (minutes): 0 Total Time including non face to face (minutes): 10 * Telephone Encounter - Sandra Rasheed MD - 05/11/2023 10:17 AM EST I think the pain is from her her back or a pinched nerve. I don't think it is coming from the urine. When I had seen her, it started suddenly when she bent over to put a shoe on. Let's do a prednisone course and I would recommend PT if she is agreeable * Telephone Encounter - Cha Mcclendon RN - 05/11/2023 9:00 AM EST Patient called today, she continues to have the right lower back pain. Patient states she continuesthe antibiotic since Monday. At times pain is "tolerable" and then its a "sharp, stabbing pain" right now its a 8-9/10. Patient has tried the heating pad and no relief, she has tried position changesand no relief. Patient states when she does void or bare down with a BM it does "ache" more. Patient states pain meds and Lidocaine patch does not help. Patient denies any blood in her urine, , she has not had her shingles boosters, but no rash noted in area. Patient not sure if it could be muscular or "pinched nerve" but having difficulty with pain. I did intellectual property counsel patient Sandra Rasheed MD is out of the office today , but I will message her for any other advice. [address] verified. Reason for Call: Advice Contact: Telephone Call Contact Type: Advice Outcome: see note Face to face time spent with Patient (minutes): 0 Total Time including non face to face (minutes): 20 documented in this encounter Plan of Treatment Upcoming Encounters Date Type Department Care Team (Late st Contact Info) Description 05/17/2023 10:00 AM EST Office Visit Sleep Disorders Ctr [facility] [address] [place] [phone] Aminata Quiroz CRNP [address] [place] [address] 07/27/2023 3:00 PM EDT Office Visit Cardiology, [facility] [address] [address] [address] Laquita Leija CRNP [address] [place] [address] 07/31/2023 1:30 PM EDT Nurse Only Ancillary [address] [place] [address] [place], Nurse [address] [place] [address] 09/06/2023 10:00 AM EDT Office Visit Sleep Disorders Ctr [facility] [address] [place] [phone] Aminata Quiroz CRNP [address] [place] [address] 09/08/2023 1:00 PM EDT Office Visit Gastroenterology [address] [place] [address] Jelly Mills CRNP [address] [place] [address] 09/13/2023 11:15 AM EDT Office Visit Ophthalmology, [facility] [place] [address] Mulugeta Hodges DO [address] [place] [address] 10/31/2023 3:00 PM EDT Office Visit [address] [place] [phone] Susy Ochoa PA-C [address] [place] [address] [place] [address] 02/28/2024 11:00 AM EST Imaging Radiology [address] [facility] [place] [address] 05/07/2024 4:00 PM EST Office Visit [address] [place] [phone] Sandra Rasheed MD [address] [place] [address] [place] [address] Scheduled Procedures Name Priority Associated Diagnoses Date/Ti me COLONOSCOPY FLEXIBLE PROXIMAL DIAGNOSTIC Recall History of colon polyps Scheduled Referrals Name Type Priority Associated Diagnoses Orde r Schedule PHYSICAL THERAPY REFERRAL OP Referral Within 10 days (routine) Acute right-sided low back pain without sciatica Ordered: 05/11/2023 Health Maintenance Due Date Last Done Comments [...] Additional history exists CKD PHOS USE SMARTSET 00850 03/27/2024 01/0 10/2023, 04/26/2022, 04/21/2021, Additional history exists Albumin/Creatinine Ratio 05/02/2024 024, 04/26/2022, 08/10/2020, Additional history exists Diabetic Foot Exam 05/02/2024 05/02/2023, 0 04/26/2022, 07/22/2021, Additional history exists O2 ASSESSMENT COMPLETED IN PAST YEAR FOR COPD 05/02/2024 05/02/2023 CKD HGB USE SMARTSET 61102 05/05/202405/05, 05/02/2023, 05/02/2023, Additional history exists Diabetic [...] this encounter Medical Devices Implanted Type Area Full Stack Php Developer Device Identifier Shelf Expiration Date Model / Serial / Lot Gynecare Tvt Device Implanted:Qty: 1 on 06/18/2013 at OR [facility] N/A: Bladder 02/17/2016 [id number] / / [id number] documented as of this encounter Visit Diagnoses Diagnosis Acute right-sided low back pain without sciatica- Primary documented in this encounter Care Teams Hair Blender Relationship Specialty Start Date End Date Sandra Rasheed MD [address] [place] [address] [place] [phone] PCP - General Family Medicine 06/05/15 documented as of this encounter
--- OUTSIDE RECORDS SUMMARY | 2023-06-01 06:45 | External Medical Summary | Summary of Care ---
Author Name Unknown Organization [facility] Address [address] [place] [address] Phone [phone] Care Team Providers Care Marinator Name Role Phone Sandra Rasheed MD Primary Care Provide r Encounter Details Date Type Department Care Team (Late st Contact Info) Description 05/12/2023 Population Health External Data Unspecified Department Allergies Active Allergy Reactions Criticality Noted Date Comments Influenza Vaccines 01/06/2015 Had flu symptoms x 1 month after injection Iodinated Contrast Media High 09/01/2016 Hives 48 hours post cardiac cath. No respiratory symptoms Sulfa Antibiotics Unknown 02/22/2013 documented as of this encounter (statuses as of 05/12/2023) Medications Medication Sig Dispensed Refills Start Date End Date Status ASPIRIN 81 MG PO TABS Take by mouth at bedtime. 0 Active Cholecalciferol 1000 UNITS Capsule Take 1 Capsule by mouth at bedtime. 30 Cap 3 09/09/2016 Active meclizine (ANTIVERT) 25 MG TabletIndications:Gi daren script for 8 tablets to use x 5 days at [facility] 06-14-18 Take 1 Tab by mouth 3 times a day as needed for Dizziness. Indications: Given script for 8 tablets to use x 5 days at [facility] 06-14-18 90 Tab 0 10/31/2018 Active CPAP [...] 3 12/26/2022 4 Active OneTouch Delica Plus [id number] :Type 2 diabetes mellitus with hemoglobin A1c goal of less than 8.0% ([facility]) Use to test blood sugar up to twice daily. Dx E11.9 200 Each 3 01/11/2023 Active OneTouch Verio In Vitro Strip (Glucose Blood)Indications:Ty pe 2 diabetes mellitus with hemoglobin A1c goal of less than 8.0% ([facility]) USE TO TEST BLOOD SUGAR UP TO TWICE DAILY 200 Strip 2 02/22/2023 5 Active Nebulizer/Tubing/Sindy thpiece KitIndications:COPD, group D, by GOLD 2017 classification ([facility]) Replacement requested as hers isn't delivering medicine [...] COPD, group D, by GOLD 2017 classification ([facility]) 1 dose inhaled every evening. Rinse mouth [...] for 7 days. 14 Capsule 0 05/08/2023 4 Active Lidocaine 5 % External Patch (Lidoderm) [...] as of this encounter (statuses as of 05/12/2023) Active Problems Problem Noted Date Diagnosed Date [...] nodule 08/14/2019 Coronary artery disease invo lving [place] coronary artery of [place] heart without angina pectoris 08/30/2018 Diabetes mellitus [...] as of this encounter (statuses as of 05/12/2023) Resolved Problems Problem Noted Date Diagnosed Date [...] as of this encounter (statuses as of 05/12/2023) Immunizations Name Administration Dates Next Due HEP A - Hepatitis A (Adult > 18 yrs) 08/21/2017, 02/17/2017 Hepatitis B, 20+ yrs 08/21/2017,03/24/2017,12/01 /2017 Pneumococcal Conjugate Vacc, 13 Valent (Prevnar) 06/15/2015 [...] on file documented as of this encounter Plan of Treatment Upcoming Encounters Date Type Department Care Team (Late st Contact Info) Description 05/17/2023 10:00 AM EST Office Visit Sleep Disorders Ctr [facility] [address] [address] [phone] Aminata Quiroz CRNP [address] [place] [address] 07/27/2023 3:00 PM EDT Office Visit Cardiology, [facility] [address] [address] [address] Laquita Leija CRNP [address] [place] [address] 07/31/2023 1:30 PM EDT Nurse Only Ancillary [place] [address] [place] [address] [place], Nurse Annual [address] [place] [address] 09/06/2023 10:00 AM EDT Office Visit Sleep Disorders Ctr [facility] [place] [phone] Aminata Quiroz CRNP [address] [place] [address] 09/08/2023 1:00 PM EDT Office Visit Gastroenterology [address] [place] [address] Jelly Mills CRNP [address] [place] [address] 09/13/2023 11:15 AM EDT Office Visit Ophthalmology, [facility] [address] [place] [address] Mulugeta Hodges DO [address] [place] [address] 10/31/2023 3:00 PM EDT Office Visit Family Medicine [address] [place] [phone] Susy Ochoa PA-C [address] [place] [address] [place] [address] 02/28/2024 11:00 AM EST Imaging Radiology [address] [place] [address] 05/07/2024 4:00 PM EST Office Visit Family Medicine [address] [place] [phone] Sandra Rasheed MD [address] [place] [address] [place] [address] Scheduled Procedures Name Priority Associated Diagnoses Date/Ti [...] Additional history exists CKD PHOS USE SMARTSET 93076 03/27/2024 01/0 10/2023, 04/26/2022, 04/21/2021, Additional history exists Albumin/Creatinine Ratio 05/02/2024 024, 04/26/2022, 08/10/2020, Additional history exists Diabetic Foot Exam 05/02/2024 05/02/2023, 0 04/26/2022, 07/22/2021, Additional history exists O2 ASSESSMENT COMPLETED IN PAST YEAR FOR COPD 05/02/2024 05/02/2023 CKD HGB USE SMARTSET 35910 05/05/202405/05, 05/02/2023, 05/02/2023, Additional history exists Diabetic [...] this encounter Medical Devices Implanted Type Area Branch Officer Device Identifier Shelf Expiration Date Model / Serial / Lot Gynecare Tvt Device Implanted:Qty: 1 on 06/18/2013 at OR [facility] N/A: Bladder 02/17/2016 [id number] / / [id number] documented as of this encounter Care Teams Marinator Relationship Specialty Start Date End Date Sandra Rasheed MD [address] [place] [address] [place] [address] PCP - General Family Medicine 06/05/15 documented as of this encounter
--- OUTSIDE RECORDS SUMMARY | 2023-06-01 06:45 | External Medical Summary | Summary of Care ---
Author Name Unknown Organization [facility] Address [address] [place] [address] Phone [phone] Care Team Providers Care Inspecting Supervisor Name Role Phone Sandra Rasheed MD Primary Care Provide r Reason for Visit * Reason Comments Follow Up 3-4 month f/u dil/oc t ou Encounter Details Date Type Department Care Team (Late st Contact Info) Description 05/10/2023 11:30 AM EST Office Visit Ophthalmology, [facility] [address] [place] [address] Mulugeta Hodges, DO [address] [place] [address] Branch retinal vein occlusion with macular edema of right eye*; Type 2 diabetes mellitus with hemoglobin A1c goal of less than 7.0% ([facility]); Stable central retinal vein occlusion of left eye; Encounter for diabetes type 2 eye exam ([facility]) Allergies Active Allergy Reactions Criticality Noted Date [...] tablets to use x 5 days at [facility] 06-14-18 Take 1 Tab by mouth 3 times a day as needed for Dizziness. Indications: Given script for 8 tablets to use x 5 days at [facility] 06-14-18 90 Tab 0 10/31/2018 Active CPAP [...] 3 12/26/2022 4 Active OneTouch Delica Plus [id number] :Type 2 diabetes mellitus with hemoglobin A1c goal of less than 8.0% ([facility]) Use to test blood sugar up to twice daily. Dx E11.9 200 Each 3 01/11/2023 Active OneTouch Verio In Vitro Strip (Glucose Blood)Indications:Ty pe 2 diabetes mellitus with hemoglobin A1c goal of less than 8.0% ([facility]) USE TO TEST BLOOD SUGAR UP TO TWICE DAILY 200 Strip 2 02/22/2023 5 Active Nebulizer/Tubing/Sindy thpiece KitIndications:COPD, group D, by GOLD 2017 classification ([facility]) Replacement requested as hers isn't [...] COPD, group D, by GOLD 2017 classification ([facility]) 1 dose inhaled every evening. [...] 6 hours as needed. 0 05/06/2023 Active documented as of this encounter (statuses [...] nodule 08/14/2019 Coronary artery disease invo lving [place] coronary artery of [place] heart without angina pectoris 08/30/2018 Diabetes mellitus [...] on file documented as of this encounter Progress Notes * Mulugeta Hodges, - 05/10/2023 11:30 AM EST [facility] [place] Nursing notes reviewed. Eye vitals reviewed. Mood and Affect: normal HPI: Mildred Moser is a 77 year old female who presents for evaluation of CRVO OS and BRVO OD. No other eye complaints. Denies significant pain. Base Eye Exam Visual Acuity (Snellen - Linear) Right Left Dist ok 20/80 -2 20/25 -2 Dist ph ok NI "Picking up new glasses soon- none with me" Tonometry (Tonopen, 11:37 AM) Right Left Pressure 17 18 Pupils APD Right None Left None Visual [place] (Counting fingers) Right Left Full Full Extraocular Movement Right Left Full, Ortho Full, Ortho Neuro/Psych Oriented x3: Yes Mood/Affect: Normal Dilation Both eyes: 0.5% Proparacaine @ 11:37 AM Dilation #2 Both eyes: 1.0% Mydriacyl, 2.5% Phenylephrine @ 11:37 AM Dilation Comments Patient cautioned that effects of dilation may last 2-7 hours dependant upon individual reaction. It was discussed that driving while dilated is not recommended. Strabismus Exam Correction: ok Observations: Ortho Distance Near Near +3DS N Bifocals cover/uncover, and alternate cover EXTERNAL: The ocular adnexae are unremarkable. SLE: Lids/Lashes: wnl OU Conjunctiva/Sclera: quiet OU; +conj pig nasally OD Cornea: clear OU Anterior Chamber: deep and quiet OU Iris: normal OU; no NVI OU Lens: 2+nsc OU Dilated fundus exam OD: vitreous: clear optic nerve: 0.1, no edema/pallor/NVD macula: +IT BRVO vessels: +IT BRVO periphery: wnl, no RT/RD Dilated fundus exam OS: vitreous: clear optic nerve: 0.1, +collaterals, no edema/pallor/NVD macula: blot hemes vessels: av nicking periphery: +blot hemes x 4 quads, no RT/RD OCT Interpretation: OD: trace erm, subfoveal rpe/photorecep disruption -STABLE, prior STABLE, prior improved 39um priorworse 16um prior improved 112um prior worse 56um , prior improved, prior worse 27um OS: trace erm, resolved recurrent cme - STABLE, prior STABLE, prior STABLE, prior STABLE A/P: 1. BRVO OD -found on routine exam 11/21/2019 -asymptomatic -has improved despite no tx in past -monitor 2. Non-Ischemic Central Retinal Vein Occlusion OS -s/p Eylea OS x 8 (12/14/15) by Dr. Arguello - s/p Eylea OS by pr (06-13-19, 03-21-19, 01-02-19, 10-24-18, 08-15-18, 06-13-18, 04-18-18, 02-21-18, 12/27/17, 10/18/17, 08-23-2017, 18, 18, 17, 17, 11-23-17, 17, 07-27-17, 06-01-17, 03-22-17, 17) - >2 year since last injection 3. DM2 -no retinopathy -recommend HgbA1C <7, BP and lipid control. 4. Cataracts OU -not visually significant 5. Dermatochalasis -scheduled for bleph w/ Dr. Ferrer F/u 3-4 months - dilate and OCT OU Mulugeta Hodges DO PCP: Sandra Rasheed MD documented in this encounter Nursing Notes * Matilda Vazquez, RN - 05/10/2023 11:31 AM EST Mildred Moser is a 77 year old year old female who presents for BRVO OD. Last Office Visit: 01/25/2023 (in office), Visit date not found (telemedicine) Patient currently states no change in vision. Are you diabetic? Yes. Do you check your blood sugars daily? YES. Fasting BS this mornin mg/dl. Last Hemoglobin A1C: Lab Results Component Value Date/Time HGBA1C 6.8 (H) 05/02/2023 02:28 PM HGBA1C 6.7 (H) 10/27/2022 01:32 PM HGBA1C 6.4 (H) 04/26/2022 01:34 PM HGBA1C 10.5 (H) 02/24/2020 12:36 PM HGBA1C 9.4 (H) 12/06/2019 10:33 AM HGBA1C 8.7 (H) 04/04/2019 12:[address]? yes OCT image(s) of both eyes acquired and filed/scanned into chart. documented in this encounter Plan of Treatment Upcoming Encounters Date Type Department Care Team (Late st Contact Info) Description 06/02/2023 11:00 AM EDT [facility] [address] [place] [phone] Aminata Quiroz CRNP [address] [place] [address] 07/27/2023 3:00 PM EDT Office Visit Cardiology, [facility] [address] [place] [address] Laquita Leija CRNP [address] [place] [address] 07/31/2023 1:30 PM EDT Nurse Only Ancillary [address] [place] [address] Hank, Nurse [address] [place] [address] 09/06/2023 10:00 AM EDT Office Visit Sleep Disorders Ctr [facility] 132 [facility] [place] [phone] Aminata Quiroz CRNP [address] [place] [address] 09/08/2023 1:00 PM EDT Office Visit Gastroenterology [address] [place] [address] Jelly Mills CRNP [address] [place] [address] 09/13/2023 11:15 AM EDT Office Visit Ophthalmology, [facility] [address] [place] [address] Mulugeta Hodges DO [address] [place] [address] 10/31/2023 3:00 PM EDT Office Visit Family Medicine [address] [place] [phone] Susy Ochoa PA-C [address] [place] [address] [place] [address] 02/28/2024 11:00 AM EST Imaging Radiology [address] 132 [facility] [place] [address] 05/07/2024 4:00 PM EST Office Visit Family Medicine [address] [place] [phone] Sandra Rasheed MD [address] [place] [address] [place] [address] Scheduled Orders Name Type Priority Associated Diagnoses Orde r Schedule RETINA SCAN DIAGNOSTIC IMAGE, POSTERIOR Procedures Routine Branch retinal vein occlusion with macular edema of right eye Ordered: 05/10/2023 Scheduled Procedures Name Priority Associated Diagnoses Date/Ti me COLONOSCOPY FLEXIBLE PROXIMAL DIAGNOSTIC Recall History of colon polyps Health Maintenance Due Date Last Done Comments Zoster Vaccines (1 of 2) 1996 *ADVANCE DIRECTIVE NOT ON FILE 09/01/2018 DISCUSS TOBACCO CESSATION (REFER TO SMARTSET #3291) 12/02/2021 12/02/2020 COVID-19 Vaccine ( - season) 2022 Influenza Vaccine (FLU shot) (#1) 2022 12/03/2013 DXA Scan 07/24/2023 07/23/2020, 07/20, 03/25/2013 Depression Screening 07/27/2023 07/26/2022 HbA1c 10/31/2023 05/02/2023, 10/18, 04/26/2022, Additional history exists GFR 11/03/2023 05/05/2023, 04/20, 04/10/2023, Additional history exists CKD PHOS USE SMARTSET 20289 03/27/2024 01/0 10/2023, 04/26/2022, 04/21/2021, Additional history exists Albumin/Creatinine Ratio 05/02/2024 024, 04/26/2022, 08/10/2020, Additional history exists Diabetic Foot Exam 05/02/2024 05/02/2023, 0 04/26/2022, 07/22/2021, Additional history exists O2 ASSESSMENT COMPLETED IN PAST YEAR FOR COPD 05/02/2024 05/02/2023 CKD HGB USE SMARTSET 71562 05/05/202405/05, 05/02/2023, 05/02/2023, Additional history exists Diabetic [...] this encounter Medical Devices Implanted Type Area Inspector Poising Device Identifier Shelf Expiration Date Model / Serial / Lot Gynecare Tvt Device Implanted:Qty: 1 on 06/18/2013 at OR [facility] N/A: Bladder 02/17/2016 [id number] / / [id number] documented as of this encounter Visit Diagnoses Diagnosis Branch retinal vein occlusion with macular edema of right eye- Primary Type 2 diabetes mellitus with hemoglobin A1c goal of less than 7.0% ([facility]) Stable central retinal vein occlusion of left eye Encounter for diabetes type 2 eye exam ([facility]) Type II or unspecified type diabetes mellitus without mention of complication, not stated as uncontrolled documented in this encounter Care Teams Inspecting Supervisor Relationship Specialty Start Date End Date Sandra Rasheed MD [address] [place] [address] [place] [address] PCP - General Family Medicine 06/05/15 documented as of this encounter
--- OUTSIDE RECORDS SUMMARY | 2023-06-01 06:45 | External Medical Summary | Summary of Care ---
Author Name Unknown Organization [facility] Address [address] [place] [address] Phone [phone] Care Team Providers Care Advertising Account Executive Name Role Phone Sandra Rasheed MD Primary Care Provide r Reason for Referral * Evaluate & Treat - Unlimited Visits (Within 10 days (routine)) - Authorized Specialty Diagnoses / Procedures Referred By Monse orellana Referred To Contact Physical Therapy / Physical Medicine And Rehab Diagnoses Acute right-sided low back pain without sciatica Sandra Rasheed MD [address] [place] [address] [place] [address] Referral ID Status Reason Start Date Expiration Date Visits Requested Visits Authorized [id number] Authorized Specialty Services Required 05/11/[phone] Question Answer Referral Priority Within 10 days (routine) Where should this appointment be scheduled? [facility] Reason for Visit * Reason Onset Date Comments Advice 05/11/2023 I will call teddy ent Monday to see if prednisone helped Encounter Details Date Type Department Care Team (Late st Contact Info) Description 05/11/2023 Telephone Ancillary Sandra En[address] [place] [address] Sandra Rasheed MD [address] [place] [address] [place] [address] Advice (I will call patient Monday to [...] tablets to use x 5 days at [facility] 06-14-18 Take 1 Tab by mouth 3 times a day as needed for Dizziness. Indications: Given script for 8 tablets to use x 5 days at [facility] 06-14-18 90 Tab 0 10/31/2018 Active [...] 3 12/26/2022 4 Active OneTouch Delica Plus [id number] :Type 2 diabetes mellitus with hemoglobin A1c goal of less than 8.0% ([facility]) Use to test blood sugar up to twice daily. Dx E11.9 200 Each 3 01/11/2023 Active OneTouch Verio In Vitro Strip (Glucose Blood)Indications:Ty pe 2 diabetes mellitus with hemoglobin A1c goal of less than 8.0% ([facility]) USE TO TEST BLOOD SUGAR UP TO TWICE DAILY 200 Strip 2 02/22/2023 5 Active Nebulizer/Tubing/Sindy thpiece KitIndications:COPD, group D, by GOLD 2017 classification ([facility]) Replacement requested as hers isn't [...] nodule 08/14/2019 Coronary artery disease invo lving [place] coronary artery of [place] heart without angina pectoris 08/30/2018 Diabetes mellitus [...] encounter Miscellaneous Notes * Telephone Encounter - Adia Hardin OSA - 05/12/2023 12:40 PM EST Referral faxed to Stephanie at [phone]. They will call pt to schedule. * Telephone Encounter - Cha Mcclendon RN - 05/12/2023 11:49 AM EST Patient called back today and states Stephanie will accept her insurance for PHYSICAL THERAPY, I will message scheduling to set up with Stephanie. Can you please let patient know when [...] "sharp, stabbing pain" right now its a . Patient has tried the heating pad and [...] but having difficulty with pain. I did dianetic counselor patient Sandra Rasheed MD is out of the office today , but I will message her for any other advice. [facility] verified. Reason for Call: Advice Contact: Telephone Call Contact Type: Advice Outcome: see note Face to face time spent with Patient (minutes): 0 Total Time including non face to face (minutes): 20 documented in this encounter Plan of Treatment Upcoming Encounters Date Type Department Care Team ([facility] Contact Info) Description 05/17/2023 10:00 AM EST Office Visit Sleep Disorders Ctr [facility] [address] [facility] [place] [phone] Aminata Quiroz CRNP [address] [facility] [place] [address] 07/27/2023 3:00 PM EDT [facility] [address] [facility] [place] [address] Laquita Leija CRNP [address] [place] [address] 07/31/2023 1:30 PM EDT Nurse Only Ancillary [address] [place] [address] [place], Nurse Annual [address] [place] [address] 09/06/2023 10:00 AM EDT Office Visit Sleep Disorders Ctr [facility] [address] [place] [phone] Aminata Quiroz CRNP [address] [place] [address] 09/08/2023 1:00 PM EDT Office Visit Gastroenterology [address] [place] [address] Jelly Mills CRNP [address] [place] [address] 09/13/2023 11:15 AM EDT Office Visit Ophthalmology, [facility] [address] [place] [address] Mulugeta Hodges, [address] [place] [address] 10/31/2023 3:00 PM EDT Office Visit Family Medicine [address] [place] [phone] Susy Ochoa PA-C [address] [place] [address] [place] [address] 02/28/2024 11:00 AM EST Imaging Radiology [address] [place] [address] 05/07/2024 4:00 PM EST Office Visit Family Medicine [address] [place] [phone] Sandra Rasheed MD [address] [place] [address] [place] [address] Scheduled Procedures Name Priority Associated Diagnoses Date/Ti [...] Additional history exists CKD PHOS USE SMARTSET 33787 03/27/2024 01/0 10/2023, 04/26/2022, 04/21/2021, Additional history exists Albumin/Creatinine Ratio 05/02/2024 024, 04/26/2022, 08/10/2020, Additional history exists Diabetic Foot Exam 05/02/2024 05/02/2023, 0 04/26/2022, 07/22/2021, Additional history exists O2 ASSESSMENT COMPLETED IN PAST YEAR FOR COPD 05/02/2024 05/02/2023 CKD HGB USE SMARTSET 74094 05/05/202405/05, 05/02/2023, 05/02/2023, Additional history exists Diabetic [...] this encounter Medical Devices Implanted Type Area Lumber Grader Device Identifier Shelf Expiration Date Model / Serial / Lot Gynecare Tvt Device Implanted:Qty: 1 on 06/18/2013 at OR [facility] N/A: Bladder 02/17/2016 [id number] / / [id number] documented as of this encounter Visit Diagnoses Diagnosis Acute right-sided low back pain without sciatica- Primary documented in this encounter Care Teams Advertising Account Executive Relationship Specialty Start Date End Date Sandra Rasheed MD [address] [place] [address] [place] [address] PCP - General Family Medicine 06/05/15 documented as of this encounter
--- OUTSIDE RECORDS SUMMARY | 2023-06-01 06:45 | External Medical Summary | Summary of Care ---
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 Indications: Given script for 8 tablets to use x 5 days at [facility] 06-14-18 90 Tab 0 10/31/2018 Active [...] 3 12/26/2022 4 Active OneTouch Delica Plus [id number] :Type 2 diabetes mellitus with hemoglobin A1c goal of less than 8.0% ([facility]) Use to test blood sugar up to twice daily. Dx E11.9 200 Each 3 01/11/2023 Active OneTouch Verio In Vitro Strip (Glucose Blood)Indications:Ty pe 2 diabetes mellitus with hemoglobin A1c goal of less than 8.0% ([facility]) USE TO TEST BLOOD SUGAR UP TO TWICE DAILY 200 Strip 2 02/22/2023 5 Active Nebulizer/Tubing/Sindy thpiece KitIndications:COPD, group D, by GOLD 2017 classification ([facility]) Replacement requested as hers isn't delivering [...] COPD, group D, by GOLD 2017 classification ([facility]) 1 dose inhaled every evening. Rinse [...] nodule 08/14/2019 Coronary artery disease invo lving [place] coronary artery of [place] heart without angina pectoris 08/30/2018 Diabetes mellitus [...] - 05/10/2023 11:30 AM EST [facility] [place] Nursing notes reviewed. Eye vitals reviewed. Mood and Affect: normal HPI: Mildred Moser is a 77 year old female who presents for evaluation of CRVO OS and BRVO OD. No other eye complaints. Denies significant pain. Base Eye Exam Visual Acuity (Snellen - Linear) Right Left Dist sd 20/80 -2 20/25 -2 Dist ph sd NI "Picking up new glasses soon- none [...] dilated is not recommended. Strabismus Exam Correction: sd Observations: Ortho Distance Near Near +3DS N [...] Dr. Arguello - s/p Eylea OS by [place] (06-13-19, 03-21-19, 01-02-19, 10-24-18, 08-15-18, 06-13-18, 04-18-18, [...] EDT [facility] [address] [place] [phone] Aminata Quiroz CRNP [address] [place] [address] 07/27/2023 3:00 PM EDT Office Visit Cardiology, [facility] [address] [place] [address] Laquita Leija CRNP [address] [place] [address] 07/31/2023 1:30 PM EDT Nurse Only Ancillary [address] [place] [address] Hank, Nurse [address] [place] [address] 09/06/2023 10:00 AM EDT Office Visit Sleep Disorders Ctr [facility] 132 [facility] [place] [phone] Aminata Quiroz CRNP [address] [place] [address] 09/08/2023 1:00 PM EDT Office Visit Gastroenterology [address] [place] [address] Jelly Mills CRNP [address] [place] [address] 09/13/2023 11:15 AM EDT Office Visit Ophthalmology, [facility] [address] [place] [address] Mulugeta Hodges DO [address] [place] [address] 10/31/2023 3:00 PM EDT Office Visit Family Medicine [address] [place] [phone] Susy Ochoa PA-C [address] [place] [address] [place] [address] 02/28/2024 11:00 AM EST Imaging Radiology [address] 132 [facility] [place] [address] 05/07/2024 4:00 PM EST Office Visit Family Medicine [address] [place] [phone] Sandra Rasheed MD [address] [place] [address] [place] [address] Scheduled Orders Name Type Priority Associated Diagnoses [...] Additional history exists CKD PHOS USE SMARTSET 92771 03/27/2024 01/0 10/2023, 04/26/2022, 04/21/2021, Additional history exists Albumin/Creatinine Ratio 05/02/2024 024, 04/26/2022, 08/10/2020, Additional history exists Diabetic Foot Exam 05/02/2024 05/02/2023, 0 04/26/2022, 07/22/2021, Additional history exists O2 ASSESSMENT COMPLETED IN PAST YEAR FOR COPD 05/02/2024 05/02/2023 CKD HGB USE SMARTSET 44262 05/05/202405/05, 05/02/2023, 05/02/2023, Additional history exists Diabetic [...] this encounter Medical Devices Implanted Type Area Financial Services Auditor Device Identifier Shelf Expiration Date Model / Serial / Lot Gynecare Tvt Device Implanted:Qty: 1 on 06/18/2013 at OR [facility] N/A: Bladder 02/17/2016 [id number] / / [id number] documented as of this encounter Visit Diagnoses [...] uncontrolled documented in this encounter Care Teams Sorting Machine Attendant Relationship Specialty Start Date End Date Sandra Rasheed MD [address] [place] [address] [place] [address] PCP - General Family Medicine 06/05/15 documented as of this encounter
--- OUTSIDE RECORDS SUMMARY | 2023-06-01 06:46 | External Medical Summary | Summary of Care ---
Author Name Unknown Organization [facility] Address [address] [place] [address] Phone [phone] Care Team Providers Care Solar Installation Manager Name Role Phone Sandra Rasheed MD Primary Care Provide r Reason for Visit * Reason Onset Date Comments Advice 05/05/2023 Follow up on Mon , tx for UTI Encounter Details Date Type Department Care Team (Late st Contact Info) Description 05/05/2023 Telephone Family Medicine [address] [phone] Sandra Rasheed MD [address] [place] [address] Advice (Follow up on Mon, tx for UTI) Allergies Active Allergy Reactions Criticality Noted Date Comments Influenza Vaccines 01/06/2015 Had flu symptoms x 1 month after injection Iodinated Contrast Media High 09/01/2016 Hives 48 hours post cardiac cath. No respiratory symptoms Sulfa Antibiotics Unknown 02/22/2013 documented as of this encounter (statuses as of 05/08/2023) Medications Medication Sig Dispensed Refills Start Date End Date Status ASPIRIN 81 MG PO TABS Take by mouth at bedtime. 0 Active Cholecalciferol 1000 UNITS Capsule Take 1 Capsule by mouth at bedtime. 30 Cap 3 7 Active meclizine (ANTIVERT) 25 MG TabletIndications:G iven script for 8 tablets to use x 5 days at [facility] 06-14-18 Take 1 Tab by mouth 3 times a day as needed for Dizziness. Indications: Given script for 8 tablets to use x 5 days at [facility] 06-14-18 90 Tab 0 9 Active CPAP [...] goal of less than 8.0% ([facility]) TAKE ONE TABLET BY MOUTH EVERY MORNING [...] 3 12/26/19 24 Active OneTouch Delica Plus [id number] s:Type 2 diabetes mellitus with hemoglobin A1c goal of less than 8.0% ([facility]) Use to test blood sugar up to twice daily. Dx E11.9 200 Each 3 3 Active OneTouch Verio In Vitro Strip (Glucose Blood)Indications:T ype 2 diabetes mellitus with hemoglobin A1c goal of less than 8.0% ([facility]) USE TO TEST BLOOD SUGAR UP TO TWICE DAILY 200 Strip 2 3 03/29/19 25 Active Nebulizer/Tubing/Mo uthpiece KitIndications:COPD , group D, by GOLD 2017 classification ([facility]) Replacement requested as hers isn't delivering medicine [...] D, by GOLD 2017 classification ([facility]) 1 dose inhaled every evening. Rinse mouth [...] as of this encounter (statuses as of 05/08/2023) Active Problems Problem Noted Date Diagnosed Date [...] nodule 08/14/2019 Coronary artery disease invo lving [place] coronary artery of [place] heart without angina pectoris 08/30/2018 Diabetes [...] as of this encounter (statuses as of 05/08/2023) Resolved Problems Problem Noted Date Diagnosed Date [...] as of this encounter (statuses as of 05/08/2023) Immunizations Name Administration Dates Next Due HEP [...] feeling, Patient states she did go to [facility] night because the pain got so [...] month after injection Sulfa Antibiotics Unknown [address] Message to Dr. Rasheed for advice. * Telephone Encounter - Patty Cardona DO - 05/05/2023 1:29 PM EST Has sulfa allergy - alfuzosin sent to pharmacy. * Telephone Encounter - Cha Mcclendon RN - 05/05/2023 12:53 PM EST Patient does use [address] Message sent to Dr. Cardona to send prescription * Telephone Encounter - Cha Mcclendon RN - 05/05/2023 12:38 PM EST I will verify pharmacy when patient comes in for specimen. [address] * Telephone Encounter - Cha Mcclendon [...] 05/10/2023 11:30 AM EST Office Visit Ophthalmology, [facility] [address] [address] Mulugeta Hodges DO [address] [address] 06/02/2023 11:00 AM EDT Office Visit Sleep Disorders Ctr [facility] [address] [phone] Aminata Quiroz CRNP [address] [address] 07/27/2023 3:00 PM EDT Office Visit Cardiology, [facility] [address] [address] Laquita Leija CRNP [address] [address] 07/31/2023 1:30 PM EDT Nurse Only Ancillary [address] [place] [address] Hank, Nurse Annual Wellness [address] [place] [address] [place] [address] 09/06/2023 10:00 AM EDT Office Visit Sleep Disorders Ctr [facility] 132 [facility] [place] [phone] Aminata Quiroz CRNP 132 [facility] [place] [address] 09/08/2023 1:00 PM EDT Office Visit Gastroenterology [address] [place] [address] Jelly Mills CRNP 132 [facility] [place] [address] 10/31/2023 3:00 PM EDT Office Visit Family Medicine [address] [place] [phone] Susy Ochoa PA-C [address] [place] [address] [place] [address] 02/28/2024 11:00 AM EST Imaging Radiology [address] [place] [address] 05/07/2024 4:00 PM EST Office Visit Family Medicine [address] [place] [phone] Sandra Rasheed MD [address] [place] [address] [place] [address] Pending Results Name Type Priority Associated Diagnoses Date /Time CULTURE, URINE, QUANTITATIVE Lab Routine Pain with urination Flank pain 05/05/2023 12:38 PM EST Scheduled Procedures Name Priority Associated Diagnoses Date/Ti [...] 07/23/2020, 07/20, 03/25/2013 Depression Screening 07/27/2023 07/26/2022 Diabetic Eye Exam 08/11/2023 08/10/2022, , 07/01/2021, Additional history exists GFR 10/31/2023 05/02/2023, 03/21, 04/04/2023, Additional history exists HbA1c 10/31/2023 05/02/2023, 10/18, 04/26/2022, Additional history exists CKD PHOS USE SMARTSET 79193 03/27/202410/2023, 04/26/2022, 04/21/2021, Additional history exists Albumin/Creatinine Ratio 05/02/2024 024, 04/26/2022, 08/10/2020, Additional history exists CKD HGB USE SMARTSET 66487 05/02/202405/02, 05/02/2023, 04/10/2023, Additional history exists Diabetic Foot Exam 05/02/2024 05/02/2023, 0 04/26/2022, 07/22/2021, Additional history exists O2 ASSESSMENT COMPLETED IN PAST YEAR FOR COPD 05/02/2024 05/02/2023 COLONOSCOPY-EVERY 3 YRS AGES 18-100 07/13/2025 07/13/2022, [...] this encounter Medical Devices Implanted Type Area Box Maker Paperboard Device Identifier Shelf Expiration Date Model / Serial / Lot Gynecare Tvt Device Implanted:Qty: 1 on 06/18/2013 at OR [facility] N/A: Bladder 02/17/2016 [id number] / / [id number] documented as of this encounter Results * (ABNORMAL) URINALYSIS WITH MICROSCOPIC EXAM (05/05/2023 [...] 05/05/2023 10:16 PM EST LABORATORY [facility] Specific [place], Urine 1.027 1.003 - 1.030 05/05/2023 10:16 [...] 25 /HPF 05/05/2023 10:16 PM EST LABORATORY [facility] Squamous Epithelial Cells, Urine Many(A) None /HPF 05/05/2023 10:16 PM EST LABORATORY [facility] Urine Urine specimen obtained by clean catch procedure / Unknown Non-blood Collection / Unknown 05/05/2023 12:38 PM EST 05/05/2023 12:38 PM EST Sandra Rasheed MD LAB URINE ORD ERABLES LABORATORY [facility] [address] [place] [address] documented in this encounter Visit Diagnoses Diagnosis Pain with urination- Primary Renal colic Flank pain Abdominal pain, unspecified site documented in this encounter Care Teams Solar Installation Manager Relationship Specialty Start Date End Date Sandra Rasheed MD [address] [place] [address] [place] [address] PCP - General Family Medicine 06/05/15 documented as of this encounter
--- OUTSIDE RECORDS SUMMARY | 2023-06-01 06:46 | External Medical Summary | Summary of Care ---
Author Name Unknown Organization [facility] Address [address] [place] [address] Phone [phone] Care Team Providers Care Sheet Metal Work Furnace Installer Name Role Phone Sandra Rasheed MD Primary Care Provide r Encounter Details Date Type Department Care Team (Late st Contact Info) Description 05/05/2023 Result Scan Unspecified Department <No scans attached> Allergies Active Allergy Reactions Criticality Noted Date Comments Influenza Vaccines 01/06/2015 Had flu symptoms x 1 month after injection Iodinated Contrast Media High 09/01/2016 Hives 48 hours post cardiac cath. No respiratory symptoms Sulfa Antibiotics Unknown 02/22/2013 documented as of this encounter (statuses as of 05/09/2023) Medications Medication Sig Dispensed Refills Start Date End Date Status ASPIRIN 81 MG PO TABS Take by mouth at bedtime. 0 Active Cholecalciferol 1000 UNITS Capsule Take 1 Capsule by mouth at bedtime. 30 Cap 3 09/09/2016 Active meclizine (ANTIVERT) 25 MG TabletIndications:Gi daren script for 8 tablets to use x 5 days at [facility] 06-14-18 Take 1 Tab by mouth 3 times a day as needed for Dizziness. Indications: Given script for 8 tablets to use x 5 days at [facility] 06-14-18 90 Tab 0 10/31/2018 Active [...] 3 12/26/2022 4 Active OneTouch Delica Plus [id number] :Type 2 diabetes mellitus with hemoglobin A1c goal of less than 8.0% ([facility]) Use to test blood sugar up to twice daily. Dx E11.9 200 Each 3 01/11/2023 Active OneTouch Verio In Vitro Strip (Glucose Blood)Indications:Ty pe 2 diabetes mellitus with hemoglobin A1c goal of less than 8.0% ([facility]) USE TO TEST BLOOD SUGAR UP TO TWICE DAILY 200 Strip 2 02/22/2023 5 Active Nebulizer/Tubing/Sindy thpiece KitIndications:COPD, group D, by GOLD 2017 classification ([facility]) Replacement requested as hers isn't delivering medicine [...] COPD, group D, by GOLD 2017 classification ([facility]) 1 dose inhaled every evening. Rinse mouth [...] days. 14 Capsule 0 05/08/2023 4 Active documented as of this encounter (statuses as of 05/09/2023) Active Problems Problem Noted Date Diagnosed Date [...] nodule 08/14/2019 Coronary artery disease invo lving [place] coronary artery of [place] heart without angina pectoris 08/30/2018 Diabetes mellitus [...] as of this encounter (statuses as of 05/09/2023) Resolved Problems Problem Noted Date Diagnosed Date [...] as of this encounter (statuses as of 05/09/2023) Immunizations Name Administration Dates Next Due HEP [...] 05/10/2023 11:30 AM EST Office Visit Ophthalmology, [facility] [address] [address] Mulugeta Hodges DO [address] [address] 06/02/2023 11:00 AM EDT Office Visit Sleep Disorders Ctr [facility] [address] [phone] Aminata Quiroz CRNP [address] [address] 07/27/2023 3:00 PM EDT Office Visit Cardiology, [facility] [address] [address] Laquita Leija CRNP [address] [address] 07/31/2023 1:30 PM EDT Nurse Only Ancillary Kelsy Maxwell Dillon[address] [place] [address] Hank, Nurse Annual [address] [place] [address] 09/06/2023 10:00 AM EDT Office Visit Sleep Disorders Ctr [facility] 132 [facility] [place] [phone] Aminata Quiroz CRNP 132 [facility] [place] [address] 09/08/2023 1:00 PM EDT Office Visit Gastroenterology [address] [place] [address] Jelly Mills CRNP [address] [place] [address] 10/31/2023 3:00 PM EDT Office Visit Family Medicine [address] [place] [phone] Susy Ochoa PA-C [address] [place] [address] [place] [address] 02/28/2024 11:00 AM EST Imaging Radiology [address] [place] [address] 05/07/2024 4:00 PM EST Office Visit Family Medicine [address] [place] [phone] Sandra Rasheed MD [address] [place] [address] [place] [address] Scheduled Procedures Name Priority Associated Diagnoses Date/Ti [...] Additional history exists CKD PHOS USE SMARTSET 25688 03/27/2024 010 10/2023, 04/26/2022, 04/21/2021, Additional history exists Albumin/Creatinine Ratio 05/02/2024 024, 04/26/2022, 08/10/2020, Additional history exists CKD HGB USE SMARTSET 13883 05/02/202405/02, 05/02/2023, 04/10/2023, Additional history exists Diabetic [...] this encounter Medical Devices Implanted Type Area Commercial Loan Coordinator Device Identifier Shelf Expiration Date Model / Serial / Lot Gynecare Tvt Device Implanted:Qty: 1 on 06/18/2013 at OR [facility] N/A: Bladder 02/17/2016 [id number] / / [id number] documented as of this encounter Procedures Procedure Name Priority Date/Time Associated Diagnosis Comments EKG SCANNED RESULT 05/05/2023 documented in this encounter Results * EKG SCANNED RESULT (05/05/2023) 05/05/2023 No Physician Data Unknown EKG documented in this encounter Care Teams Sheet Metal Work Furnace Installer Relationship Specialty Start Date End Date Sandra Rasheed MD [address] [place] [address] [place] [phone] PCP - General Family Medicine 06/05/15 documented as of this encounter
--- OUTSIDE RECORDS SUMMARY | 2023-06-01 06:46 | External Medical Summary | Summary of Care ---
Author Name Unknown Organization [facility] Address [address] [place] [address] Phone [phone] Care Team Providers Care Cycle Liaison Name Role Phone Sandra Rasheed MD Primary Care Provide r Reason for Visit * Reason Onset Date Comments Med Request 05/05/2023 Encounter Details Date Type Department Care Team (Late st Contact Info) Description 05/05/2023 Telephone Family Medicine [address] [phone] Sandra Rasheed MD [address] [place] [address] Med Request Allergies Active Allergy Reactions Criticality Noted Date [...] tablets to use x 5 days at [facility] 06-14-18 Take 1 Tab by mouth 3 times a day as needed for Dizziness. Indications: Given script for 8 tablets to use x [address] [facility] [place] 06-14-18 90 Tab 0 9 Active CPAP [...] 3 12/26/19 24 Active OneTouch Delica Plus [id number] s:Type 2 diabetes mellitus with hemoglobin A1c goal of less than 8.0% ([facility]) Use to test blood sugar up to twice daily. Dx E11.9 200 Each 3 3 Active OneTouch Verio In Vitro Strip (Glucose Blood)Indications:T ype 2 diabetes mellitus with hemoglobin A1c goal of less than 8.0% ([facility]) USE TO TEST BLOOD SUGAR UP TO TWICE DAILY 200 Strip 2 3 03/29/19 25 Active Nebulizer/Tubing/Mo uthpiece KitIndications:COPD , group D, by GOLD 2017 classification ([facility]) Replacement requested as hers isn't [...] :COPD, group D, by GOLD 2017 classification ([facility]) 1 dose inhaled every evening. [...] MONDAY, MONDAY AND MONDAY 135 Tablet 1 4 Active Cephalexin 500 MG Oral Capsule (Keflex) Take 1 Capsule by mouth in the morning and 1 Capsule before bedtime. Do all this for 7 days. 14 Capsule 0 4 05/15/19 24 Active Alfuzosin HCl ER 10 MG Oral [...] nodule 08/14/2019 Coronary artery disease invo lving [place] coronary artery of [place] heart without angina pectoris 08/30/2018 Diabetes mellitus [...] Encounter - Cha Mcclendon RN - 05/08/2023 12:53 PM EST Patient notified that new prescription sent to pharmacy. * Telephone Encounter - Sandra Rasheed MD - 05/08/2023 11:00 AM EST Her urine culture is growing bacteria so it looks like it is a UTI. I sent her an antibiotic. Cancel alfuzosin. * Telephone Encounter - Davina Oshea OSA - 05/05/2023 3:17 PM EST Cash has called in from [facility] states the medication Alfuzosin was denied because this isfor Males not female use please advise to send over alternative please pt. Needs soon documented in this encounter Plan of Treatment Upcoming Encounters Date Type Department Care Team (Late st Contact Info) Description 05/10/2023 11:30 AM EST Office Visit Ophthalmology, [facility] [address] [address] Mulugeta Hodges, DO [address] [place] [address] 06/02/2023 11:00 AM EDT Office Visit Sleep Disorders Ctr [facility] [address] [phone] Aminata Quiroz CRNP [address] [place] [address] 07/27/2023 3:00 PM EDT Office Visit Cardiology, [facility] [address] [address] Laquita Leija CRNP [address] [address] [address] 07/31/2023 1:30 PM EDT Nurse Only Ancillary [address] [place] [address] Hank, Nurse [address] [place] [address] 09/06/2023 10:00 AM EDT Office Visit Sleep Disorders Ctr [facility] [address] [phone] Aminata Quiroz CRNP [address] [place] [address] 09/08/2023 1:00 PM EDT Office Visit Gastroenterology [address] [place] [address] Jelly Mills CRNP [address] [place] [address] 10/31/2023 3:00 PM EDT Office Visit Family Medicine [address] [place] [phone] Susy Ochoa PA-C [address] [place] [address] [place] [address] 02/28/2024 11:00 AM EST Imaging Radiology [address] [facility] [place] [address] 05/07/2024 4:00 PM EST Office Visit Family Medicine [address] [place] [phone] Sandra Rasheed MD [address] [place] [address] [place] [address] Scheduled Procedures Name Priority Associated Diagnoses Date/Ti [...] Additional history exists CKD PHOS USE SMARTSET 67263 03/27/202410/2023, 04/26/2022, 04/21/2021, Additional history exists Albumin/Creatinine Ratio 05/02/2024 024, 04/26/2022, 08/10/2020, Additional history exists CKD HGB USE SMARTSET 08271 05/02/202405/02, 05/02/2023, 04/10/2023, Additional history exists Diabetic [...] this encounter Medical Devices Implanted Type Area Quality Process Engineer Device Identifier Shelf Expiration Date Model / Serial / Lot Gynecare Tvt Device Implanted:Qty: 1 on 06/18/[address] [facility] N/A: Bladder 02/17/2016 [id number] / / [id number] documented as of this encounter Care Teams Cycle Liaison Relationship Specialty Start Date End Date Sandra Rasheed MD [address] [place] [address] [place] [address] PCP - General Family Medicine 06/05/15 documented as of this encounter
--- OUTSIDE RECORDS SUMMARY | 2023-06-01 06:46 | External Medical Summary | Summary of Care ---
Author Name Unknown Organization [facility] Address [address] [place] [address] Phone [phone] Care Team Providers Care Hydroelectric Production Technician Name Role Phone Sandra Rasheed MD Primary Care Provide r Reason for Visit * Reason Onset Date Comments Advice 05/05/2023 I will follow up on patient Monday Encounter Details Date Type Department Care Team (Late st Contact Info) Description 05/05/2023 Telephone Family Medicine [address] [phone] Sandra Rasheed MD [address] [place] [phone] Advice (I will follow up on patient Monday) Allergies Active Allergy Reactions Criticality Noted Date [...] [facility] Take 1 Tab by mouth 3 times a day as needed for Dizziness. Indications: Given script for 8 tablets to use x 5 days at [facility] 06-14-18 90 Tab 0 9 Active CPAP [...] goal of less than 8.0% ([facility]) TAKE ONE TABLET BY MOUTH EVERY MORNING [...] 3 12/26/19 24 Active OneTouch Delica Plus [id number] s:Type 2 diabetes mellitus with hemoglobin A1c goal of less than 8.0% ([facility]) Use to test blood sugar up to twice daily. Dx E11.9 200 Each 3 3 Active OneTouch Verio In Vitro Strip (Glucose Blood)Indications:T ype 2 diabetes mellitus with hemoglobin A1c goal of less than 8.0% ([facility]) USE TO TEST BLOOD SUGAR UP TO TWICE DAILY 200 Strip 2 3 03/29/19 25 Active Nebulizer/Tubing/Mo uthpiece KitIndications:COPD , group D, by GOLD 2017 classification ([facility]) Replacement requested as hers isn't delivering medicine [...] :COPD, group D, by GOLD 2017 classification ([facility]) 1 dose inhaled every evening. Rinse mouth [...] nodule 08/14/2019 Coronary artery disease invo lving [place] coronary artery of [place] heart without angina pectoris 08/30/2018 Diabetes mellitus [...] encounter Miscellaneous Notes * Telephone Encounter - Sandra Rasheed MD - 05/08/2023 12:47 PM EST Please see other phone call. Urine culture is positive and I sent her an Abx * Telephone Encounter - Cha Mcclendon RN - 05/08/2023 12:34 PM EST I did call patient today to see how she is feeling, Patient states she did go to [facility] night because the pain got [...] month after injection Sulfa Antibiotics Unknown E [address] Message to Dr. Rasheed for advice. * Telephone Encounter - Patty Cardona DO - 05/05/2023 1:29 PM EST Has sulfa allergy - alfuzosin sent to pharmacy. * Telephone Encounter - Cha Mcclendon RN - 05/05/2023 12:53 PM EST Patient does use [address] Message sent to Dr. Cardona to send prescription * Telephone Encounter - Cha Mcclendon RN - 05/05/2023 12:38 PM EST I will verify pharmacy when patient comes in for specimen. [address] * Telephone Encounter - Cha Mcclendon [...] 05/10/2023 11:30 AM EST Office Visit Ophthalmology, [facility] [address] [facility] [place] [address] Mulugeta Hodges DO 132 [place] [address] 06/02/2023 11:00 AM EDT Office Visit Sleep Disorders Ctr [facility] [address] [facility] [place] [phone] Aminata Quiroz CRNP 132 [facility] [place] [address] 07/27/2023 3:00 PM EDT Office Visit Cardiology, [facility] [address] [facility] [place] [address] Laquita Leija CRNP [address] [place] [address] 07/31/2023 1:30 PM EDT Nurse Only Ancillary [address] [place] [address] Hank, Nurse [address] [place] [address] 09/06/2023 10:00 AM EDT Office Visit Sleep Disorders Ctr [facility] 132 [facility] [place] [phone] Aminata Quiroz CRNP [address] [facility] [place] [address] 09/08/2023 1:00 PM EDT Office Visit Gastroenterology [address] [place] [address] Jelly Mills CRNP [address] [facility] [place] [address] 10/31/2023 3:00 PM EDT Office Visit Family Medicine [address] [phone] Susy Ochoa PA-C [address] [place] [address] [place] [address] 02/28/2024 11:00 AM EST Imaging Radiology [address], [address] [place] [address] 05/07/2024 4:00 PM EST Office Visit Family Medicine [address] [place] [phone] Sandra Rasheed MD [address] [place] [address] [place] [address] Pending Results Name Type Priority Associated Diagnoses [...] 09/01/2018 DISCUSS TOBACCO CESSATION (REFER TO SMARTSET #4906) 12/02/2021 12/02/2020 COVID-19 Vaccine ( season) 2022 Influenza Vaccine (FLU shot) (#1) 2022 12/03/2013 DXA Scan 07/24/2023 07/23/2020, 07/20, 03/25/2013 Depression Screening 07/27/2023 07/26/2022 Diabetic Eye Exam 08/11/2023 08/10/2022, , 07/01/2021, Additional history exists GFR 10/31/2023 05/02/2023, 03/21, 04/04/2023, Additional history exists HbA1c 10/31/2023 05/02/2023, 08, 04/26/2022, Additional history exists CKD PHOS USE SMARTSET 31999 03/27/202410/2023, 04/26/2022, 04/21/2021, Additional history exists Albumin/Creatinine Ratio 05/02/2024 024, 04/26/2022, 08/10/2020, Additional history exists CKD HGB USE SMARTSET 01057 05/02/202405/02, 05/02/2023, 04/10/2023, Additional history exists Diabetic [...] this encounter Medical Devices Implanted Type Area Assembler Fitter Device Identifier Shelf Expiration Date Model / Serial / Lot Gynecare Tvt Device Implanted:Qty: 1 on 06/18/2013 at OR [facility] N/A: Bladder 02/17/2016 [id number] / / [id number] documented as of this encounter Results * (ABNORMAL) URINALYSIS WITH MICROSCOPIC EXAM (05/05/2023 12:38 PM EST) Color, Urine Yellow Colorless, Light Yellow, Yellow, Dark Yellow 05/05/2023 10:16 PM EST LABORATORY C Clarity, Urine Clear Clear 05/05/2023 10:16 PM EST LABORATORY C Glucose, Urine Negative Negative mg/dL 05/05/2023 10:16 PM EST LABORATORY C Bilirubin, Urine Negative Negative 05/05/2023 10:16 PM EST LABORATORY C Ketone, Urine Negative Negative mg/dL 05/05/2023 10:16 PM EST LABORATORY [facility] Specific [place], Urine 1.027 1.003 - 1.030 05/05/2023 10:16 PM EST LABORATORY [facility] Blood, Urine Negative Negative 05/05/2023 10:16 PM EST LABORATORY [facility] pH, Urine 6.5 5.0 - 7.5 Units 05/05/2023 10:16 PM EST LABORATORY [facility] Protein, Urine 30(A) Negative mg/dL 05/05/2023 10:16 PM EST LABORATORY [facility] Urobilinogen, Urine Normal Normal mg/dL 05/05/2023 10:16 PM EST LABORATORY C Nitrite, Urine Negative Negative 05/05/2023 10:16 PM EST LABORATORY C Esterase, Urine Negative Negative 05/05/2023 10:16 PM EST LABORATORY C RBC, Urine 0-2 0 - 2 /HPF 05/05/2023 10:16 PM EST LAB[facility]ORY [facility] WBC, Urine 0-2 0 - 2 /HPF 05/05/2023 10:16 PM EST LABORATORY [facility] Bacteria, Urine 0-25 0 - 25 /HPF 05/05/2023 10:16 PM EST LABORATORY [facility] Squamous Epithelial Cells, Urine Many(A) None /HPF 05/05/2023 10:16 PM EST LABORATORY [facility] Urine Urine specimen obtained by clean catch procedure / Unknown Non-blood Collection / Unknown 05/05/2023 12:38 PM EST 05/05/2023 12:38 PM EST Sandra Rasheed MD LAB URINE ORD ERABLES LABORATORY [facility] [address] [facility] [place] [address] documented in this encounter Visit Diagnoses Diagnosis Pain with urination- Primary Renal colic Flank pain Abdominal pain, unspecified site documented in this encounter Care Teams Hydroelectric Production Technician Relationship Specialty Start Date End Date Sandra Rasheed MD [address] [place] [address] [place] [address] PCP - General Family Medicine 06/05/15 documented as of this encounter
--- OUTSIDE RECORDS SUMMARY | 2023-06-01 06:46 | External Medical Summary | Summary of Care ---
Author Name Unknown Organization [facility] Address [address] [place] [address] Phone [phone] Care Team Providers Care Raw Shellfish Preparer Name Role Phone Sandra Rasheed MD Primary Care Provide r Reason for Visit * Reason Onset Date Comments Advice 05/05/2023 I will follow up on patient Monday Encounter Details Date Type Department Care Team (Late st Contact Info) Description 05/05/2023 Telephone Family Medicine [address] [phone] Sandra Rasheed MD [address] [place] [phone] Advice (I will follow up on [...] tablets to use x 5 days at [facility] 06-14-18 Take 1 Tab by mouth 3 times a day as needed for Dizziness. Indications: Given script for 8 tablets to use x 5 days at [facility] 06-14-18 90 Tab 0 9 Active [...] hemoglobin A1c goal of less than 8.0% ([facility]) TAKE ONE TABLET BY MOUTH EVERY MORNING [...] 3 12/26/19 24 Active OneTouch Delica Plus [id number] s:Type 2 diabetes mellitus with hemoglobin A1c goal of less than 8.0% ([facility]) Use to test blood sugar up to twice daily. Dx E11.9 200 Each 3 3 Active OneTouch Verio In Vitro Strip (Glucose Blood)Indications:T ype 2 diabetes mellitus with hemoglobin A1c goal of less than 8.0% ([facility]) USE TO TEST BLOOD SUGAR UP TO TWICE DAILY 200 Strip 2 3 03/29/19 25 Active Nebulizer/Tubing/Mo uthpiece KitIndications:COPD , group D, by GOLD 2017 classification ([facility]) Replacement requested as hers isn't delivering [...] :COPD, group D, by GOLD 2017 classification ([facility]) 1 dose inhaled every evening. Rinse [...] nodule 08/14/2019 Coronary artery disease [place]ving [place] coronary artery of [place] heart without angina pectoris 08/30/2018 Diabetes mellitus [...] feeling, Patient states she did go to [facility] because the pain got [...] after injection Sulfa Antibiotics Unknown E [address] Message to Dr[address] Rasheed for advice. * Telephone Encounter - Patty Cardona DO - 05/05/2023 1:29 PM EST Has sulfa allergy - alfuzosin sent to pharmacy. * Telephone Encounter - Cha Mcclendon RN - 05/05/2023 12:53 PM EST Patient does use [address] Message sent to Dr. Cardona to send prescription * Telephone Encounter - Cha Mcclendon RN - 05/05/2023 12:38 PM EST I will verify pharmacy when patient comes in for specimen. [address] * Telephone Encounter - Cha Mcclendon [...] 05/10/2023 11:30 AM EST Office Visit Ophthalmology, [facility] 132 [place] [address] Mulugeta Hodges DO 132 [place] [address] 06/02/2023 11:00 AM EDT Office Visit Sleep Disorders Ctr [facility] [address] [place] [phone] Aminata Quiroz CRNP 132 [place] [address] 07/27/2023 3:00 PM EDT Office Visit Cardiology, [facility] [address] [place] [address] Laquita Leija CRNP 132 [place] [address] 07/31/2023 1:30 PM EDT Nurse Only Ancillary [address] [place] [address] Hank, Nurse [facility] [address] [place] [address] [place] [address] 09/06/2023 10:00 AM EDT Office Visit Sleep Disorders Ctr [facility] 132 [facility] [place] [phone] Aminata Quiroz CRNP 132 [facility] [place] [address] 09/08/2023 1:00 PM EDT Office Visit Gastroenterology [address] [place] [address] Jelly Mills CRNP 132 [facility] [place] [address] 10/31/2023 3:00 PM EDT Office Visit Family Medicine [address] [place] [phone] Susy Ochoa PA-C [address] [place] [address] [place] [address] 02/28/2024 11:00 AM EST Imaging Radiology [address] [place] [address] 05/07/2024 4:00 PM EST Office Visit Family Medicine [address] [place] [phone] Sandra Rasheed MD [address] [place] [address] [place] [address] Pending Results Name Type Priority Associated Diagnoses [...] Additional history exists CKD PHOS USE SMARTSET 53561 03/27/202410/2023, 04/26/2022, 04/21/2021, Additional history exists Albumin/Creatinine Ratio 05/02/2024 024, 04/26/2022, 08/10/2020, Additional history exists CKD HGB USE SMARTSET 88351 05/02/202405/02, 05/02/2023, 04/10/2023, Additional history exists Diabetic [...] this encounter Medical Devices Implanted Type Area Wharf Attendant Device Identifier Shelf Expiration Date Model / Serial / Lot Gynecare Tvt Device Implanted:Qty: 1 on 06/18/2013 at OR [facility] N/A: Bladder 02/17/2016 [id number] / / [id number] documented as of this encounter Results * [...] 05/05/2023 10:16 PM EST LABORATORY [facility] Specific [place], Urine 1.027 1.003 - 1.030 05/05/2023 10:16 [...] None /HPF 05/05/2023 10:16 PM EST LABORATORY [facility] Urine Urine specimen obtained by clean catch procedure / Unknown Non-blood Collection / Unknown 05/05/2023 12:38 PM EST 05/05/2023 12:38 PM EST Sandra Rasheed MD LAB URINE ORD ERABLES LABORATORY [facility] [address] [place] [address] documented in this encounter Visit Diagnoses Diagnosis Pain with urination- Primary Renal colic Flank pain Abdominal pain, unspecified site documented in this encounter Care Teams Raw Shellfish Preparer Relationship Specialty Start Date End Date Sandra Rasheed MD [address] [place] [address] [place] [address] PCP - General Family Medicine 06/05/15 documented as of this encounter
--- OUTSIDE RECORDS SUMMARY | 2023-06-01 06:46 | External Medical Summary | Summary of Care ---
Author Name Unknown Organization [facility] Address [address] [place] [address] Phone [phone] Care Team Providers Care Jeep Mechanic Name Role Phone Sandra Rasheed MD Primary Care Provide r Encounter Details Date Type Department Care Team (Late st Contact Info) Description 05/09/2023 Orders Only Family Medicine [address] [phone] Sandra Rasheed MD [address] [place], [place] [address] [address] Allergies Active Allergy Reactions Criticality Noted Date [...] tablets to use x 5 days at [facility] 06-14-18 Take 1 Tab by mouth 3 times a day as needed for Dizziness. Indications: Given script for 8 tablets to use x 5 days at [facility] 06-14-18 90 Tab 0 10/31/2018 Active [...] 3 12/26/2022 4 Active OneTouch Delica Plus [id number] :Type 2 diabetes mellitus with hemoglobin A1c goal of less than 8.0% ([facility]) Use to test blood sugar up to twice daily. Dx E11.9 200 Each 3 01/11/2023 Active OneTouch Verio In Vitro Strip (Glucose Blood)Indications:Ty pe 2 diabetes mellitus with hemoglobin A1c goal of less than 8.0% ([facility]) USE TO TEST BLOOD SUGAR UP TO TWICE DAILY 200 Strip 2 02/22/2023 5 Active Nebulizer/Tubing/Sindy thpiece KitIndications:COPD, group D, by GOLD 2017 classification ([facility]) Replacement requested as hers isn't [...] COPD, group D, by GOLD 2017 classification ([facility]) 1 dose inhaled every evening. [...] 7 days. 14 Capsule 0 05/08/2023 Active documented as of this encounter (statuses [...] nodule 08/14/2019 Coronary artery disease invo lving [place] coronary artery of [place] heart without angina pectoris 08/30/2018 Diabetes mellitus [...] 05/10/2023 11:30 AM EST Office Visit Ophthalmology, [facility] [address] [place] [address] Mulugeta Hodges DO [address] [place] [address] 06/02/2023 11:00 AM EDT Office Visit Sleep Disorders Ctr [facility] 132 [place] [phone] Aminata Quiroz CRNP [address] [place] [address] 07/27/2023 3:00 PM EDT Office Visit Cardiology, [facility] 132 [place] [address] Laquita Leija CRNP [address] [place] [address] 07/31/2023 1:30 PM EDT Nurse Only Ancillary [address] [place] [address] [place], Nurse [address] [place] [address] 09/06/2023 10:00 AM EDT Office Visit Sleep Disorders Ctr [facility] 132 [facility] [place] [phone] Aminata Quiroz CRNP 132 [facility] [place] [address] 09/08/2023 1:00 PM EDT Office Visit Gastroenterology [address] [place] [address] Jelly Mills CRNP 132 [facility] [place] [address] 10/31/2023 3:00 PM EDT Office Visit Family Medicine [address] [place] [phone] Susy Ochoa PA-C [address] [place] [address] [place] [address] 02/28/2024 11:00 AM EST Imaging Radiology [address] 132 [facility] [place] [address] 05/07/2024 4:00 PM EST Office Visit Family Medicine [address] [place] [phone] Sandra Rasheed MD [address] [place] [address] [place] [address] Scheduled Procedures Name Priority Associated Diagnoses Date/Ti me COLONOSCOPY FLEXIBLE PROXIMAL DIAGNOSTIC Recall History of colon polyps Health Maintenance Due Date Last Done Comments Zoster Vaccines (1 of 2) 1996 *ADVANCE DIRECTIVE NOT ON FILE 09/01/2018 DISCUSS TOBACCO CESSATION (REFER TO SMARTSET #3291) 12/02/2021 12/02/2020 COVID-19 Vaccine (1 - 2022- season) 2022 Influenza Vaccine (FLU shot) (#1) 2022 12/03/2013 DXA Scan 07/24/2023 07/23/2020, 07/20, 03/25/2013 Depression Screening 07/27/2023 07/26/2022 Diabetic Eye Exam 08/11/2023 08/10/2022, , 07/01/2021, Additional history exists GFR 10/31/2023 05/02/2023, 03/21, 04/04/2023, Additional history exists HbA1c 10/31/2023 05/02/2023, 10/18, 04/26/2022, Additional history exists CKD PHOS USE SMARTSET 20630 03/27/2024 01/0 10/2023, 04/26/2022, 04/21/2021, Additional history exists Albumin/Creatinine Ratio 05/02/2024 024, 04/26/2022, 08/10/2020, Additional history exists CKD HGB USE SMARTSET 54196 05/02/202405/02, 05/02/2023, 04/10/2023, Additional history exists Diabetic [...] this encounter Medical Devices Implanted Type Area Tip Tester Device Identifier Shelf Expiration Date Model / Serial / Lot Gynecare Tvt Device Implanted:Qty: 1 on 06/18/2013 at OR [facility] N/A: Bladder 02/17/2016 [id number] / / [id number] documented as of this encounter Procedures Procedure Name Priority Date/Time Associated Diagnosis Comments CT ABD/PELVIS W IV AND W ORAL CONTRAST Routine 05/05/2023 documented in this encounter Results * CT ABD/PELVIS W IV AND W ORAL CONTRAST (05/05/2023) Anatomical Region Laterality Modality Body, Abdomen, Pelvis Other 05/05/2023 History Per Patient RAD CT documented in this encounter Care Teams Jeep Mechanic Relationship Specialty Start Date End Date Sandra Rasheed MD [address] [place] [address] [place] [address] PCP - General Family Medicine 06/05/15 documented as of this encounter
--- OUTSIDE RECORDS SUMMARY | 2023-06-01 06:46 | External Medical Summary | Summary of Care ---
Author Name Unknown Organization [facility] Address [address] [place] [address] Phone [phone] Care Team Providers Care Hitting Coach Name Role Phone Sandra Rasheed MD Primary Care Provide r Encounter Details Date Type Department Care Team (Late st Contact Info) Description 05/09/2023 Orders Only Family Medicine [address] [phone] Sandra Rasheed MD [address] [place], [place] [address] [phone] Allergies Active Allergy Reactions Criticality Noted Date [...] tablets to use x 5 days at [facility] 06-14-18 Take 1 Tab by mouth 3 times a day as needed for Dizziness. Indications: Given script for 8 tablets to use x 5 days at [facility] 06-14-18 90 Tab 0 10/31/2018 Active [...] 3 12/26/2022 4 Active OneTouch Delica Plus [id number] :Type 2 diabetes mellitus with hemoglobin A1c goal of less than 8.0% ([facility]) Use to test blood sugar up to twice daily. Dx E11.9 200 Each 3 01/11/2023 Active OneTouch Verio In Vitro Strip (Glucose Blood)Indications:Ty pe 2 diabetes mellitus with hemoglobin A1c goal of less than 8.0% ([facility]) USE TO TEST BLOOD SUGAR UP TO TWICE DAILY 200 Strip 2 02/22/2023 5 Active Nebulizer/Tubing/Sindy thpiece KitIndications:COPD, group D, by GOLD 2017 classification ([facility]) Replacement requested as hers isn't [...] COPD, group D, by GOLD 2017 classification ([facility]) 1 dose inhaled every evening. [...] nodule 08/14/2019 Coronary artery disease invo lving [place] coronary artery of [place] heart without angina pectoris 08/30/2018 Diabetes mellitus [...] 05/10/2023 11:30 AM EST Office Visit Ophthalmology, [facility] [address] [address] Mulugeta Hodges DO [address] [place] [address] 06/02/2023 11:00 AM EDT Office Visit Sleep Disorders Ctr [facility] [address] [phone] Aminata Quiroz CRNP [address] [place] [address] 07/27/2023 3:00 PM EDT Office Visit Cardiology, [facility] [address] [address] Laquita Leija CRNP [address] [place] [address] 07/31/2023 1:30 PM EDT Nurse Only Ancillary [address] [place] [address] [place], Nurse [address] [place] [address] 09/06/2023 10:00 AM EDT Office Visit Sleep Disorders Ctr [facility] 132 [facility] [place] [phone] Aminata Quiroz CRNP 132 [facility] [place] [address] 09/08/2023 1:00 PM EDT Office Visit Gastroenterology [address] [place] [address] Jelly Mills CRNP 132 [facility] [place] [address] 10/31/2023 3:00 PM EDT Office Visit Family Medicine [address] [place] [phone] Susy Ochoa PA-C [address] [place] [address] [place] [address] 02/28/2024 11:00 AM EST Imaging Radiology [address] 132 [facility] [place] [address] 05/07/2024 4:00 PM EST Office Visit Family Medicine [address] [place] [phone] Sandra Rasheed MD [address] [place] [address] [place] [address] Scheduled Procedures Name Priority Associated Diagnoses Date/Ti [...] 08/11/2023 08/10/2022, , 07/01/2021, Additional history exists HbA1c 10/31/2023 05/02/2023, 10/18, 04/26/2022, Additional history exists GFR 11/03/2023 05/05/2023, 04/20, 04/10/2023, Additional history exists CKD PHOS USE SMARTSET 03526 03/27/2024 01/0 10/2023, 04/26/2022, 04/21/2021, Additional history exists Albumin/Creatinine Ratio 05/02/2024 024, 04/26/2022, 08/10/2020, Additional history exists Diabetic Foot Exam 05/02/2024 05/02/2023, 0 04/26/2022, 07/22/2021, Additional history exists O2 ASSESSMENT COMPLETED IN PAST YEAR FOR COPD 05/02/2024 05/02/2023 CKD HGB USE SMARTSET 24988 05/05/202405/05, 05/02/2023, 05/02/2023, Additional history exists COLONOSCOPY-EVERY 3 YRS AGES [...] this encounter Medical Devices Implanted Type Area Fry Cook Device Identifier Shelf Expiration Date Model / Serial / Lot Gynecare Tvt Device Implanted:Qty: 1 on 06/18/2013 at OR [facility] N/A: Bladder 02/17/2016 [id number] / / [id number] documented as of this encounter Procedures Procedure Name Priority Date/Time Associated Diagnosis Comments CHEMISTRY-OUTSIDE Routine 05/05/2023 documented in this encounter Results * (ABNORMAL) CHEMISTRY-OUTSIDE (05/05/2023) Not all results display below - see scan for full detail OUTSIDE LAB (SEE SCANNED REPORT) Comment:SCAN INCLUDES - E.R. LABS: CBCD, UA, URINE CULTURE, TROPONIN, BMP, HEPATIC FUNCTION, LIPASE, MAGNESIUM, TROPONIN CREATININE-OUTSI DE LAB 1.39(A) 0.55 - 1.02 MG/DL OUTSIDE LAB (SEE SCANNED REPORT) EGFR-OUTSIDE LAB 39(L) >=60 ML/MIN/1.73M 2 OUTSIDE LAB (SEE SCANNED REPORT) POTASSIUM-OUTSID E LAB 3.7 3.5 - 5.1 MMOL/L OUTSIDE LAB (SEE SCANNED REPORT) GLUCOSE-OUTSIDE LAB 134(A) 70 - 110 MG/DL OUTSIDE LAB (SEE SCANNED REPORT) HOURS FASTING OUTSID E LAB (SEE SCANNED REPORT) TRIGLYCERIDES-OU TSIDE LAB OUTSIDE LAB (SEE SCANNED REPORT) CHOLESTEROL-OUTS PHAN LAB OUTSIDE LAB (SEE SCANNED REPORT) HDL-OUTSIDE LAB OUTS PHAN LAB (SEE SCANNED REPORT) CHOL/HDL RATIO-OUTSIDE LAB OUTSIDE LAB (SEE SCANNED REPORT) LDL (CALCULATED)-OUT SIDE LAB OUTSIDE LAB (SEE SCANNED REPORT) LDL (DIRECT MEASURE)-OUTSIDE LAB OUTSIDE LAB (SEE SCANNED REPORT) HEMOGLOBIN, N2K-NYRRQKU LAB OUTSIDE LAB (SEE SCANNED REPORT) PHOSPHORUS-OUTSI DE LAB OUTSIDE LAB (SEE SCANNED REPORT) PTH-OUTSIDE LAB OUTS PHAN LAB (SEE SCANNED REPORT) MICROALBUMIN RATIO-OUTSIDE LAB OUTSIDE LAB (SEE SCANNED REPORT) PROTEIN, UA-OUTSIDE LAB NEGATIVE NEGATIVE OUTSIDE LAB (SEE SCANNED REPORT) HEMOGLOBIN-OUTSI DE LAB 14.1 12.0 - 16.0 GM/DL OUTSIDE LAB (SEE SCANNED REPORT) 05/05/2023 History Per Patient LABORATORY OUTSIDE LAB (SEE SCANNED REPORT) documented in this encounter Care Teams Hitting Coach Relationship Specialty Start Date End Date Sandra Rasheed MD [address] [place] [address] [place] [phone] PCP - General Family Medicine 06/05/15 documented as of this encounter
--- OUTSIDE RECORDS SUMMARY | 2023-06-01 06:46 | External Medical Summary | Summary of Care ---
Author Name Unknown Organization [facility] Address [address] [place] [address] Phone [phone] Care Team Providers Care Timber Management Specialist Name Role Phone Sandra Rasheed MD Primary Care Provide r Reason for Visit * Reason Onset Date Comments Advice 05/05/2023 I will follow up on patient Monday Encounter Details Date Type Department Care Team (Late st Contact Info) Description 05/05/2023 Telephone Family Medicine [address] [phone] Sandra Rasheed MD [address] [place] [phone] Advice (I will follow up on [...] tablets to use x 5 days at [facility] 06-14-18 Take 1 Tab by mouth 3 times a day as needed for Dizziness. Indications: Given script for 8 tablets to use x [address] [facility] 06-14-18 90 Tab 0 9 Active [...] goal of less than 8.0% ([facility]) TAKE ONE TABLET BY MOUTH EVERY [...] 3 12/26/19 24 Active OneTouch Delica Plus [id number] s:Type 2 diabetes mellitus with hemoglobin A1c goal of less than 8.0% ([facility]) Use to test blood sugar up to twice daily. Dx E11.9 200 Each 3 3 Active OneTouch Verio In Vitro Strip (Glucose Blood)Indications:T ype 2 diabetes mellitus with hemoglobin A1c goal of less than 8.0% ([facility]) USE TO TEST BLOOD SUGAR UP TO TWICE DAILY 200 Strip 2 3 03/29/19 25 Active Nebulizer/Tubing/Mo uthpiece KitIndications:COPD , group D, by GOLD 2017 classification ([facility]) Replacement requested as hers isn't delivering [...] :COPD, group D, by GOLD 2017 classification ([facility]) 1 dose inhaled every evening. Rinse [...] nodule 08/14/2019 Coronary artery disease invo lving [place] coronary artery of [place] heart without angina pectoris 08/30/2018 Diabetes mellitus [...] feeling, Patient states she did go to [facility] night because the pain got [...] month after injection Sulfa Antibiotics Unknown E [address] Message to Dr. Rasheed for advice. * Telephone Encounter - Patty Cardona DO - 05/05/2023 1:29 PM EST Has sulfa allergy - alfuzosin sent to pharmacy. * Telephone Encounter - Cha Mcclendon RN - 05/05/2023 12:53 PM EST Patient does use [address] Message sent to Dr. Cardona to send prescription * Telephone Encounter - Cha Mcclendon RN - 05/05/2023 12:38 PM EST I will verify pharmacy when patient comes in for specimen. [address] * Telephone Encounter - Cha Mcclendon [...] 05/10/2023 11:30 AM EST Office Visit Ophthalmology, [facility] [address] [address] Mulugeta Hodges DO [address] [place] [address] 06/02/2023 11:00 AM EDT Office Visit Sleep Disorders Ctr [facility] [address] [phone] Aminata Quiroz CRNP [address] [place] [address] 07/27/2023 3:00 PM EDT Office Visit Cardiology, [facility] [address] [place] [address] Laquita Leija CRNP [address] [place] [address] 07/31/2023 1:30 PM EDT Nurse Only Ancillary [address] [place] [address] [place], Nurse [address] [place] [address] 09/06/2023 10:00 AM EDT Office Visit Sleep Disorders Ctr [facility] [address] [place] [phone] Aminata Quiroz CRNP [address] [place] [address] 09/08/2023 1:00 PM EDT Office Visit Gastroenterology [address] [place] [address] Jelly Mills CRNP [address] [place] [address] 10/31/2023 3:00 PM EDT Office Visit Family Medicine [address] [place] [phone] Susy Ochoa PA-C [address] [place] [address] [place] [address] 02/28/2024 11:00 AM EST Imaging Radiology [address], [place] [address] [place] [address] 05/07/2024 4:00 PM EST Office Visit Family [address] [place] [phone] Sandra Rasheed MD [address] [place] [address] [place] [address] Pending Results Name Type Priority Associated Diagnoses [...] Additional history exists CKD PHOS USE SMARTSET 52896 03/27/2024/0 10/2023, 04/26/2022, 04/21/2021, Additional history exists Albumin/Creatinine Ratio 05/02/2024 024, 04/26/2022, 08/10/2020, Additional history exists CKD HGB USE SMARTSET 39354 05/02/202405/02, 05/02/2023, 04/10/2023, Additional history exists Diabetic [...] this encounter Medical Devices Implanted Type Area Operations Officer Device Identifier Shelf Expiration Date Model / Serial / Lot Gynecare Tvt Device Implanted:Qty: 1 on 06/18/2013 at OR [facility] N/A: Bladder 02/17/2016 [id number] / / [id number] documented as of this encounter Results * (ABNORMAL) URINALYSIS WITH MICROSCOPIC EXAM (05/05/2023 12:38 PM EST) Color, Urine Yellow Colorless, Light Yellow, Yellow, Dark Yellow 05/05/2023 10:16 PM EST [facility] Clarity, Urine Clear Clear 05/05/2023 10:16 PM EST [facility] Glucose, Urine Negative Negative mg/dL 05/05/2023 10:16 PM EST [facility] Bilirubin, Urine Negative Negative 05/05/2023 10:16 PM EST [facility] Ketone, Urine Negative Negative mg/dL 05/05/2023 10:16 PM EST [facility] Specific [place], Urine 1.027 1.003 - 1.030 05/05/2023 10:16 PM EST [facility] Blood, Urine Negative Negative 05/05/2023 10:16 PM EST [facility] pH, Urine 6.5 5.0 - 7.5 Units 05/05/2023 10:16 PM EST [facility] Protein, Urine 30(A) Negative mg/dL 05/05/2023 10:16 PM EST [facility] Urobilinogen, Urine Normal Normal mg/dL 05/05/2023 10:16 PM EST [facility] Nitrite, Urine Negative Negative 05/05/2023 10:16 PM EST [facility] Esterase, Urine Negative Negative 05/05/2023 10:16 PM EST [facility] RBC, Urine 0-2 0 - 2 /HPF 05/05/2023 10:16 PM EST [facility] WBC, Urine 0-2 0 - 2 /HPF 05/05/2023 10:16 PM EST [facility] Bacteria, Urine 0-25 0 - 25 /HPF 05/05/2023 10:16 PM EST [facility] Squamous Epithelial Cells, Urine Many(A) None /HPF 05/05/2023 10:16 PM EST [facility] Urine Urine specimen obtained by clean catch procedure / Unknown Non-blood Collection / Unknown 05/05/2023 12:38 PM EST 05/05/2023 12:38 PM EST Sandra Rasheed MD LAB URINE ORD ERABLES [facility] [address] [place] [address] documented in this encounter Visit Diagnoses Diagnosis Pain with urination- Primary Renal colic Flank pain Abdominal pain, unspecified site documented in this encounter Care Teams Timber Management Specialist Relationship Specialty Start Date End Date Sandra Rasheed MD [address] [place] [address] [place] [address] PCP - General Family Medicine 06/05/15 documented as of this encounter
--- OUTSIDE RECORDS SUMMARY | 2023-06-01 06:47 | External Medical Summary | Summary of Care ---
Author Name Unknown Organization [facility] Address [address] [place] [address] Phone [phone] Care Team Providers Care Ham Pumper Name Role Phone Sandra Rasheed MD Primary Care Provide r Reason for Visit * Reason Onset Date Comments Advice 05/05/2023 Send prescriptio n to pharmacy Encounter Details Date Type Department Care Team (Late st Contact Info) Description 05/05/2023 Telephone Family Medicine [address] [phone] Sandra Rasheed MD [address] [place] [address] Advice (Send prescription to pharmacy) Allergies Active Allergy Reactions Criticality Noted Date Comments Influenza Vaccines 01/06/2015 Had flu symptoms x 1 month after injection Iodinated Contrast Media High 09/01/2016 Hives 48 hours post cardiac cath. No respiratory symptoms Sulfa Antibiotics Unknown 02/22/2013 documented as of this encounter (statuses as of 05/05/2023) Medications Medication Sig Dispensed Refills Start Date End Date Status ASPIRIN 81 MG PO TABS Take by mouth at bedtime. 0 Active Cholecalciferol 1000 UNITS Capsule Take 1 Capsule by mouth at bedtime. 30 Cap 3 09/09/2016 Active meclizine (ANTIVERT) 25 MG TabletIndications:Gi daren script for 8 tablets to use x 5 days at [place] [facility] 06-14-18 Take 1 Tab by mouth 3 times a day as needed for Dizziness. Indications: Given script for 8 tablets to use x 5 days at [facility] 06-14-18 90 Tab 0 10/31/2018 Active [...] hemoglobin A1c goal of less than 8.0% ([facility]) TAKE ONE TABLET BY MOUTH EVERY [...] 3 12/26/2022 4 Active OneTouch Delica Plus [id number] :Type 2 diabetes mellitus with hemoglobin A1c goal of less than 8.0% ([facility]) Use to test blood sugar up to twice daily. Dx E11.9 200 Each 3 01/11/2023 Active OneTouch Verio In Vitro Strip (Glucose Blood)Indications:Ty pe 2 diabetes mellitus with hemoglobin A1c goal of less than 8.0% ([facility]) USE TO TEST BLOOD SUGAR UP TO TWICE DAILY 200 Strip 2 02/22/2023 5 Active Nebulizer/Tubing/Sindy thpiece KitIndications:COPD, group D, by GOLD 2017 classification ([facility]) Replacement requested as hers isn't delivering [...] COPD, group D, by GOLD 2017 classification ([facility]) 1 dose inhaled every evening. Rinse [...] AND MONDAY 135 Tablet 1 05/05/2023 Active Alfuzosin HCl ER 10 MG Oral Tablet Extended Release 24 Hour (Uroxatral) Take 1 Tablet by mouth in the morning. 14 Tablet 0 05/05/2023 Active documented as of this encounter (statuses as of 05/05/2023) Active Problems Problem Noted Date Diagnosed Date [...] nodule 08/14/2019 Coronary artery disease invo lving [place] coronary artery of [place] heart without angina pectoris 08/30/2018 Diabetes mellitus [...] as of this encounter (statuses as of 05/05/2023) Resolved Problems Problem Noted Date Diagnosed Date [...] as of this encounter (statuses as of 05/05/2023) Immunizations Name Administration Dates Next Due HEP [...] encounter Miscellaneous Notes * Telephone Encounter - Patty Cardona DO - 05/05/2023 1:29 PM EST Has sulfa allergy - alfuzosin sent to pharmacy. * Telephone Encounter - Cha Mcclendon RN - 05/05/2023 12:53 PM EST Patient does use [facility] Message sent to Dr. Cardona to send prescription * Telephone Encounter - Cha Mcclendon RN - 05/05/2023 12:38 PM EST I will verify pharmacy when patient comes in for specimen. [facility] * Telephone Encounter - Cha Mcclendon [...] 11:30 AM EST Office Visit Ophthalmology, [facility] [address] [address] Mulugeta Hodges DO [address] [place] [address] 06/02/2023 11:00 AM EDT Office Visit Sleep Disorders Ctr [facility] [address] [phone] Aminata Quiroz CRNP [address] [place] [address] 07/27/2023 3:00 PM EDT Office Visit Cardiology, [facility] [address] [address] Laquita Leija CRNP [address] [place] [address] 07/31/2023 1:30 PM EDT Nurse Only Ancillary [address] [place] [address] [place], Nurse [address] [place] [address] 09/06/2023 10:00 AM EDT Office Visit Sleep Disorders Ctr [facility] 132 [facility] [place] [phone] Aminata Quiroz CRNP [address] [place] [address] 09/08/2023 1:00 PM EDT Office Visit Gastroenterology [address] [place] [address] Jelly Mills CRNP 132 [facility] [place] [address] 10/31/2023 3:00 PM EDT Office Visit Family Medicine [address] [place] [phone] Susy Ochoa PA-C [address] [place] [address] [place] [address] 02/28/2024 11:00 AM EST Imaging Radiology [address] [facility] [place] [address] 05/07/2024 4:00 PM EST Office Visit Family Medicine [address] [place] [phone] Sandra Rasheed MD [address] [place] [address] [place] [address] Pending Results Name Type Priority Associated Diagnoses Date /Time URINALYSIS WITH MICROSCOPIC EXAM Lab Routine Pain with urination Flank pain 05/05/2023 12:38 PM EST CULTURE, URINE, QUANTITATIVE Lab Routine Pain with urination Flank pain 05/05/2023 12:38 PM EST Scheduled Orders Name Type Priority Associated Diagnoses Orde r Schedule URINALYSIS WITH MICROSCOPIC EXAM Lab Routine Pain with urination Flank pain Expected: 05/05/2023 (Approximate), Expires: 05/04/2024 CULTURE, URINE, QUANTITATIVE Lab Routine Pain with urination Flank pain Expected: 05/05/2023, Expires: 05/05/2024 Scheduled Procedures Name Priority Associated Diagnoses Date/Ti [...] Additional history exists CKD PHOS USE SMARTSET 98191 03/27/2024 01/0 10/2023, 04/26/2022, 04/21/2021, Additional history exists Albumin/Creatinine Ratio 05/02/2024 024, 04/26/2022, 08/10/2020, Additional history exists CKD HGB USE SMARTSET 55803 05/02/202405/02, 05/02/2023, 04/10/2023, Additional history exists Diabetic [...] this encounter Medical Devices Implanted Type Area Personnel Interviewer Device Identifier Shelf Expiration Date Model / Serial / Lot Gynecare Tvt Device Implanted:Qty: 1 on 06/18/2013 at OR [facility] N/A: Bladder 02/17/2016 [id number] / / [id number] documented as of this encounter Visit Diagnoses Diagnosis Pain with urination- Primary Renal colic Flank pain Abdominal pain, unspecified site documented in this encounter Care Teams Ham Pumper Relationship Specialty Start Date End Date Sandra Rasheed MD [address] [place] [address] [place] [phone] PCP - General Family Medicine 06/05/15 documented as of this encounter
--- OUTSIDE RECORDS SUMMARY | 2023-06-01 06:47 | External Medical Summary ---
Author Name Unknown Address Unknown Organization K01:[facility] [place] [address] [place] [id number] Laboratory Report Ordering Provider Test Date Status LOUISE HEADLEY 05/05/2023 12:38:05 Final <10,000 colonies/ml mixed no rmal ignacio Observation Date Value Abnormality Reference (Units ) Status Bacteria identified in Specimen by Culture 05/05/2023 12:38:05 [id number] OCCUS ANGINOSUS GROUP Abnormal Final >100,000 colonies/mL Strepto coccus anginosus group
Test: Culture, Urine, Quantitative
Specimen Source: Urine, Clean Catch
Specimen Type: Urine
Specimen Date: 05/05/2023 12:38 PM
Result Date: 05/08/2023 2:52 PM
Result Status: Final result
Abnormal: Yes
Resulting Lab: LABORATORY [facility]
[address]
[place] [address]

CULTURE

>100,000 colonies/mL Streptococcus anginosus group (Abnormal)

<10,000 colonies/ml mixed normal ignacio

null Performing Location [facility] [address] [facility] [address]
--- OUTSIDE RECORDS SUMMARY | 2023-06-01 06:47 | External Medical Summary | Summary of Care ---
Author Name Unknown Organization [facility] Address [address] [place] [address] Phone [phone] Care Team Providers Care Reinforcer Name Role Phone Sandra Rasheed MD Primary Care Provide r Reason for Visit * Reason Comments Outpatient Testing Encounter Details Date Type Department Care Team (Late st Contact Info) Description 05/05/2023 12:40 PM EST Laboratory Laboratory [address] [place] [phone] [place] [address] Pain with urination; Flank pain Allergies Active Allergy Reactions Criticality Noted Date [...] tablets to use x 5 days at [facility] 06-14-18 Take 1 Tab by mouth 3 times a day as needed for Dizziness. Indications: Given script for 8 tablets to use x 5 days at [facility] 06-14-18 90 Tab 0 10/31/2018 Active [...] 3 12/26/2022 4 Active OneTouch Delica Plus [id number] :Type 2 diabetes mellitus with hemoglobin A1c [...] delivering medicine well and is old. DME: [employer] 1 Kit 0 02/22/2023 Active B Complex [...] AND MONDAY 135 Tablet 1 05/05/2023 Active documented as of this encounter [...] nodule 08/14/2019 Coronary artery disease invo lving [place] coronary artery of [place] heart without angina pectoris 08/30/2018 Diabetes [...] 05/10/2023 11:30 AM EST Office Visit Ophthalmology, [facility] [address] [place] [address] Mulugeta Hodges DO [address] [place] [address] 06/02/2023 11:00 AM EDT Office Visit Sleep Disorders Ctr [facility] [address] [place] [phone] Aminata Quiroz CRNP [address] [place] [address] 07/27/2023 3:00 PM EDT Office Visit Cardiology, [facility] [address] [place] [address] Laquita Leija CRNP [address] [place] [address] 07/31/2023 1:30 PM EDT Nurse Only Ancillary [address] [place] [address] [place], Nurse Annual [address] [place] [address] 09/06/2023 10:00 AM EDT Office Visit Sleep Disorders Ctr [facility] 132 [facility] [place] [phone] Aminata Quiroz CRNP [facility] [place] [address] 09/08/2023 1:00 PM EDT Office Visit Gastroenterology [address] [place] [address] Jelly Mills CRNP [address] [place] [address] 10/31/2023 3:00 PM EDT Office Visit Family Medicine [address] [place] [phone] Susy Ochoa PA-C [address] [place] [address] [place] [address] 02/28/2024 11:00 AM EST Imaging Radiology [address] 132 [facility] [place] [address] 05/07/2024 4:00 PM EST Office Visit Family Medicine [address] [place] [phone] Sandra Rasheed MD [address] [place] [address] [place] [address] Pending Results Name Type Priority Associated Diagnoses [...] Additional history exists CKD PHOS USE SMARTSET 80455 03/27/2024 01/0 10/2023, 04/26/2022, 04/21/2021, Additional history exists Albumin/Creatinine Ratio 05/02/2024 024, 04/26/2022, 08/10/2020, Additional history exists CKD HGB USE SMARTSET 65939 05/02/202405/02, 05/02/2023, 04/10/2023, Additional history exists Diabetic [...] this encounter Medical Devices Implanted Type Area Director Of Quantitative Research Device Identifier Shelf Expiration Date Model / Serial / Lot Gynecare Tvt Device Implanted:Qty: 1 on 06/18/2013 at OR [facility] N/A: Bladder 02/17/2016 [id number] / / [id number] documented as of this encounter Visit Diagnoses Diagnosis Pain with urination Renal colic Flank pain Abdominal pain, unspecified site documented in this encounter Care Teams Reinforcer Relationship Specialty Start Date End Date Sandra Rasheed MD [address] [place] [address] [place] [address] PCP - General Family Medicine 06/05/15 documented as of this encounter
--- OUTSIDE RECORDS SUMMARY | 2023-06-01 06:47 | External Medical Summary | Summary of Care ---
Author Name Unknown Organization [facility] Address [address] [place] [address] Phone [phone] Care Team Providers Care Shipbuilding Draftsperson Name Role Phone Sandra Rasheed MD Primary Care Provide r Reason for Visit * Reason Onset Date Comments Advice 05/05/2023 I will follow up on patient Monday Encounter Details Date Type Department Care Team (Late st Contact Info) Description 05/05/2023 Telephone Family Medicine [address] [phone] Sandra Rasheed MD [address] [place] [id number] Advice (I will follow up on [...] tablets to use x 5 days at [facility] 06-14-18 Take 1 Tab by mouth 3 times a day as needed for Dizziness. Indications: Given script for 8 tablets to use x 5 days at [facility] 06-14-18 90 Tab 0 10/31/2018 Active [...] goal of less than 8.0% ([facility]) TAKE ONE TABLET BY MOUTH EVERY MORNING [...] 3 12/26/2022 4 Active OneTouch Delica Plus [id number] :Type 2 diabetes mellitus with hemoglobin A1c goal of less than 8.0% ([facility]) Use to test blood sugar up to twice daily. Dx E11.9 200 Each 3 01/11/2023 Active OneTouch Verio In Vitro Strip (Glucose Blood)Indications:Ty pe 2 diabetes mellitus with hemoglobin A1c goal of less than 8.0% ([facility]) USE TO TEST BLOOD SUGAR UP TO TWICE DAILY 200 Strip 2 02/22/2023 5 Active Nebulizer/Tubing/Sindy thpiece KitIndications:COPD, group D, by GOLD 2017 classification ([facility]) Replacement requested as hers isn't delivering [...] D, by GOLD 2017 classification ([facility]) 1 dose inhaled every evening. Rinse [...] nodule 08/14/2019 Coronary artery disease invo lving [place] coronary artery of [place] heart without angina pectoris 08/30/2018 Diabetes mellitus [...] 05/05/2023 12:53 PM EST Patient does use [facility] Message sent to Dr. Cardona to send prescription * Telephone Encounter - Cha Mcclendon RN - 05/05/2023 12:38 PM EST I will verify pharmacy when patient comes in for specimen. [facility] * Telephone Encounter - Cha Mcclendon [...] 05/10/2023 11:30 AM EST Office Visit Ophthalmology, [facility] [address] [place] [address] Mulugeta Hodges DO [address] [place] [address] 06/02/2023 11:00 AM EDT Office Visit Sleep Disorders Ctr [facility] [address] [place] [phone] Aminata Quiroz CRNP [address] [place] [address] 07/27/2023 3:00 PM EDT Office Visit Cardiology, [facility] [address] [place] [address] Laquita Leija CRNP [address] [place] [address] 07/31/2023 1:30 PM EDT Nurse Only Ancillary [address] [place] [address] [place], Nurse [address] [place] [address] 09/06/2023 10:00 AM EDT Office Visit Sleep Disorders Ctr [facility] [address] [place] [phone] Aminata Quiroz CRNP [address] [place] [address] 09/08/2023 1:00 PM EDT Office Visit Gastroenterology [address] [place] [address] Jelly Mills CRNP [address] [place] [address] 10/31/2023 3:00 PM EDT Office Visit Family Medicine [address] [place] [phone] Susy Ochoa PA-C [address] [place] [address] [place] [address] 02/28/2024 11:00 AM EST Imaging Radiology [address] [facility] [place] [address] 05/07/2024 4:00 PM EST Office Visit Family Medicine [address] [place] [phone] Sandra Rasheed MD [address] [place] [address] [place] [address] Pending Results Name Type Priority Associated Diagnoses [...] 09/01/2018 DISCUSS TOBACCO CESSATION (REFER TO SMARTSET #3298) 12/02/2021 12/02/2020 COVID-19 Vaccine ( season) 2022 Influenza Vaccine (FLU shot) (#1) 2022 12/03/2013 DXA Scan 07/24/2023 07/23/2020, 07/20, 03/25/2013 Depression Screening 07/27/2023 07/26/2022 Diabetic Eye Exam 08/11/2023 08/10/2022, , 07/01/2021, Additional history exists GFR 10/31/2023 05/02/2023, 03/21, 04/04/2023, Additional history exists HbA1c 10/31/2023 05/02/2023, 10/18, 04/26/2022, Additional history exists CKD PHOS USE SMARTSET 11428 03/27/2024 01/0 10/2023, 04/26/2022, 04/21/2021, Additional history exists Albumin/Creatinine Ratio 05/02/2024 024, 04/26/2022, 08/10/2020, Additional history exists CKD HGB USE SMARTSET 26191 05/02/202405/02, 05/02/2023, 04/10/2023, Additional history exists Diabetic [...] this encounter Medical Devices Implanted Type Area Preconstruction Manager Device Identifier Shelf Expiration Date Model / Serial / Lot Gynecare Tvt Device Implanted:Qty: 1 on 06/18/2013 at OR [facility] N/A: Bladder 02/17/2016 [id number] / / [id number] documented as of this encounter Visit Diagnoses Diagnosis Pain with urination- Primary Renal colic Flank pain Abdominal pain, unspecified site documented in this encounter Care Teams Shipbuilding Draftsperson Relationship Specialty Start Date End Date Sandra Rasheed MD [address] [place] [address] [place] [address] PCP - General Family Medicine 06/05/15 documented as of this encounter
--- OUTSIDE RECORDS SUMMARY | 2023-06-01 06:47 | External Medical Summary ---
Author Name Unknown Address Unknown Organization K01:LABORATORY [facility] - [address] [facility] [address] Laboratory Report Ordering Provider Test Date Status LOUISE HEADLEY 05/05/2023 12:38:05 Final Observation Date Value Abnormality Reference (Units ) Status Color of Urine by Auto 05/05/2023 12:38:05 Yellow Colorless, Light Yellow, Yellow, Dark Yellow Final Clarity, Urine 05/05/2023 12:38:05 Clear Clear Final Glucose [Mass/volume] in Urine by Automated test strip 05/05/2023 12:38:05 Negative Negative (mg/dL) Final Bilirubin.total [Presence] in Urine by Automated test strip 05/05/2023 12:38:05 Negative Negative Final Ketones [Mass/volume] in Urine by Automated test strip 05/05/2023 12:38:05 Negative Negative (mg/dL) Final Specific gravity, Urine 05/05/2023 12:38:05 1.027 1.003-1.030 Final Hemoglobin [Presence] in Urine by Automated test strip 05/05/2023 12:38:05 Negative Negative Final pH, Urine 05/05/2023 12:38:05 6.5 5.0-7.5 (Units) Final Protein [Mass/volume] in Urine by Automated test strip 05/05/2023 12:38:05 30 Abnormal Negative (mg/dL) Final Urobilinogen [Mass/volume] in Urine by Automated test strip 05/05/2023 12:38:05 Normal Normal (mg/dL) Final Nitrite [Presence] in Urine by Automated test strip 05/05/2023 12:38:05 Negative Negative Final Leukocyte esterase [Presence] in Urine by Automated test strip 05/05/2023 12:38:05 Negative Negative Final RBC, Urine 05/05/2023 12:38:05 0-2 0-2 (/HPF) Final WBC, Urine 05/05/2023 12:38:05 0-2 0-2 (/HPF) Final Bacteria [#/area] in Urine sediment by Microscopy high power field 05/05/2023 12:38:05 0-25 0-25 (/HPF) Final Epithelial cells.squamous [#/area] in Urine sediment by Microscopy high power field 05/05/2023 12:38:05 Many Abnormal None (/HPF) Final Performing Location LABORATORY [facility] - [address] [facility] [address]
--- OUTSIDE RECORDS SUMMARY | 2023-06-01 06:47 | External Medical Summary | Summary of Care ---
Author Name Unknown Organization [facility] Address [address] [place] [address] Phone [phone] Care Team Providers Care Teacher Private Name Role Phone Fang Rasheed MD Primary Care Provide r Reason for Visit * Reason Comments Medication Refill Encounter Details Date Type Department Care Team (Late st Contact Info) Description 05/05/2023 Refill Family Medicine [address] [phone] Fang Rasheed MD [address] [place] [address] [place] [id number] Hypertension with goal blood pressure less than 140/80; Localized edema Allergies Active Allergy Reactions Criticality Noted Date [...] tablets to use x 5 days at [facility] 06-14-18 Take 1 Tab by mouth 3 times a day as needed for Dizziness. Indications: Given script for 8 tablets to use x 5 days at [facility] - 90 Tab 0 10/31/2018 [...] 3 12/26/2022 4 Active OneTouch Delica Plus [id number] s:Type 2 diabetes mellitus with hemoglobin A1c goal of less than 8.0% ([facility]) Use to test blood sugar up to twice daily. Dx E11.9 200 Each 3 01/11/2023 Active OneTouch Verio In Vitro Strip (Glucose Blood)Indications:T ype 2 diabetes mellitus with hemoglobin A1c goal of less than 8.0% ([facility]) USE TO TEST BLOOD SUGAR UP TO TWICE DAILY 200 Strip 2 02/22/2023 5 Active Nebulizer/Tubing/Mo uthpiece KitIndications:COPD , group D, by GOLD 2017 classification ([facility]) Replacement requested as hers isn't delivering medicine [...] :COPD, group D, by GOLD 2017 classification ([facility]) 1 dose inhaled every evening. Rinse mouth [...] AND MONDAY 135 Tablet 1 05/05/2023 Active Torsemide 10 MG Oral Tablet (Demadex)Indication [...] nodule 08/14/2019 Coronary artery disease invo lving [place] coronary artery of [place] heart without angina pectoris 08/30/2018 Diabetes mellitus [...] encounter Miscellaneous Notes * Telephone Encounter - Moshe Johnson RPh - 05/05/2023 10:27 AM EST Signed Prescriptions: Disp Refills Torsemide 10 MG Oral Tablet (Demadex) 135 Ta*1 Sig: TAKE ONE TABLET BY MOUTH ONCE DAILY TAKE ONE ADDITIONAL TABLET BY MOUTH IN THE AFTERNOON ON MONDAY, MONDAY AND MONDAYAuthorizing Provider: FANG RASHEED User: MOSHE JOHNSON documented in this encounter Plan of Treatment Upcoming Encounters Date Type Department Care Team (Late st Contact Info) Description 05/10/2023 11:30 AM EST Office Visit Ophthalmology, [facility] [address] [place] [address] Mulugeta Hodges DO [address] [place] [address] 06/02/2023 11:00 AM EDT Office Visit Sleep Disorders Ctr [facility] [address] [place] [phone] Aminata Quiroz CRNP [address] [address] 07/27/2023 3:00 PM EDT Office Visit Cardiology, [facility] [address] [place] [address] Laquita Leija CRNP [address] [place] [address] 07/31/2023 1:30 PM EDT Nurse Only Ancillary [address] [place] [address] [place], Nurse [address] [place] [address] 09/06/2023 10:00 AM EDT Office Visit Sleep Disorders Ctr [facility] [address] [place] [phone] Aminata Quiroz CRNP [address] [place] [address] 09/08/2023 1:00 PM EDT Office Visit Gastroenterology [address] [place] [address] Jelly Mills CRNP [address] [place] [address] 10/31/2023 3:00 PM EDT Office Visit Family Medicine [address] [place] [phone] Susy Ochoa PA-C [address] [place] [address] [place] [address] 02/28/2024 11:00 AM EST Imaging Radiology [address], [address] [place] [address] 05/07/2024 4:00 PM EST Office Visit Family Medicine [address] [place] [phone] Fang Rasheed MD [address] [place] [address] [place] [address] Scheduled Procedures Name Priority Associated Diagnoses Date/Ti me COLONOSCOPY FLEXIBLE PROXIMAL DIAGNOSTIC Recall History of colon polyps Health Maintenance Due Date Last Done Comments COVID-19 Vaccine (#1) 04/04/1946 Zoster Vaccines (1 of 2) 1996 *ADVANCE DIRECTIVE NOT ON FILE 09/01/2018 DISCUSS TOBACCO CESSATION (REFER TO SMARTSET #3291) 12/02/2021 12/02/2020 Influenza Vaccine (FLU shot) (#1) 2022 12/03/2013 DXA Scan 07/24/2023 07/23/2020, 07/20, 03/25/2013 Depression Screening 07/27/2023 07/26/2022 Diabetic Eye Exam 08/11/2023 08/10/2022, , 07/01/2021, Additional history exists GFR 10/31/2023 05/02/2023, 03/21, 04/04/2023, Additional history exists HbA1c 10/31/2023 05/02/2023, 10/18, 04/26/2022, Additional history exists CKD PHOS USE SMARTSET 73328 03/27/202410/2023, 04/26/2022, 04/21/2021, Additional history exists Albumin/Creatinine Ratio 05/02/2024 024, 04/26/2022, 08/10/2020, Additional history exists CKD HGB USE SMARTSET 38998 05/02/202405/02, 05/02/2023, 04/10/2023, Additional history exists Diabetic [...] this encounter Medical Devices Implanted Type Area Lmsw Device Identifier Shelf Expiration Date Model / Serial / Lot Gynecare Tvt Device Implanted:Qty: 1 on 06/18/2013 at OR [facility] N/A: Bladder 02/17/2016 [id number] / / [id number] documented as of this encounter Visit Diagnoses Diagnosis Hypertension with goal blood pressure less than 140/80 Localized edema Edema documented in this encounter Care Teams Teacher Private Relationship Specialty Start Date End Date Fang Rasheed MD [address] [place] [address] [place] [address] PCP - General Family Medicine 06/05/15 documented as of this encounter
--- OUTSIDE RECORDS SUMMARY | 2023-06-01 06:48 | External Medical Summary ---
Author Name Unknown Address Unknown Organization K01:LABORATORY [facility] - [address] [place] [address] Laboratory Report Ordering Provider Test Date Status LOUISE HEADLEY 05/02/2023 14:28:38 Final Normal: <30 mg/g creatinine< br/>High: 30-300 mg/g creatinine
Very High: >300 mg/g creatinine
Nephrotic: >2200 mg/g creatinine Observation Date Value Abnormality Reference (Units ) Status Albumin, Urine 05/02/2023 14:28:38 4.24 (mg/dL) Final Creatinine, Urine 05/02/2023 14:28:38 159 (mg/dL) Final Albumin/Creatinine [Mass Ratio] in Urine 05/02/2023 14:28:38 27 <30 (mg/g Creat) Final Performing Location LABORATORY [facility] - [address] [place] [address]
--- OUTSIDE RECORDS SUMMARY | 2023-06-01 06:48 | External Medical Summary | Summary of Care ---
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 Name Role Phone Sandra Rasheed MD Primary Care Provide r Reason for Visit * Reason Comments Re-Check Encounter Details Date Type Department Care Team (Latest Contact Info) Description 05/02/2023 1:40 PM EST Office Visit Family Medicine [address] [phone] Sandra Rasheed MD [address] [place] [id number] COPD, group D, by GOLD 2017 classification ([facility])*; Chronic diastolic congestive heart failure (HCC); Type 2 diabetes mellitus with stage 3b chronic kidney disease, without long-term current use of insulin ([facility]); DM type 2 nursing care encounter (HCC); Coronary artery disease involving ely shoshone coronary artery of ely shoshone heart without angina pectoris; Type 2 diabetes mellitus with diabetic neuropathy, without long-term current use of insulin ([facility]); Dyslipidemia, goal LDL below 70; Central retinal vein occlusion, unspecified complication status, unspecified laterality; Hypertensive kidney disease with stage 3b chronic kidney disease ([facility]); MGUS (monoclonal gammopathy of unknown significance); Flank pain; Muscle strain Allergies Active Allergy Reactions Criticality Noted Date Comments Influenza Vaccines 01/06/2015 Had flu symptoms x 1 month after injection Iodinated Contrast Media High 09/01/2016 Hives 48 hours post cardiac cath. No respiratory symptoms Sulfa Antibiotics Unknown 02/22/2013 documented as of this encounter (statuses as of 05/02/2023) Medications Medication Sig Dispensed Refills Start Date End Date Status ASPIRIN 81 MG PO TABS Take by mouth at bedtime. 0 Active Cholecalciferol 1000 UNITS Capsule Take 1 Capsule by mouth at bedtime. 30 Cap 3 09/09/2016 Active meclizine (ANTIVERT) 25 MG TabletIndications:Gi daren script for 8 tablets to use x 5 days at [facility] 06-14-18 Take 1 Tab by mouth 3 times a day as needed for Dizziness. Indications: Given script for 8 tablets to use x 5 days at [facility] 06-14-18 90 Tab 0 10/31/2018 [...] WHEEZING 54 g 3 05/31/2022 4 Active Torsemide 10 MG Oral Tablet (Demadex)Indications :Hypertension with goal blood pressure less than 140/80,Localized edema TAKE ONE TABLET BY MOUTH ONCE DAILY TAKE ONE ADDITIONAL TABLET BY MOUTH IN THE AFTERNOON ON MONDAY, MONDAY AND MONDAY 135 Tablet 1 09/27/2022 4 Active Losartan Potassium 50 MG Oral [...] 3 12/26/2022 4 Active OneTouch Delica Plus [id number] :Type 2 diabetes mellitus with hemoglobin A1c goal of less than 8.0% ([facility]) Use to test blood sugar up to twice daily. Dx E11.9 200 Each 3 01/11/2023 Active OneTouch Verio In Vitro Strip (Glucose Blood)Indications:Ty pe 2 diabetes mellitus with hemoglobin A1c goal of less than 8.0% ([facility]) USE TO TEST BLOOD SUGAR UP TO TWICE DAILY 200 Strip 2 02/22/2023 5 Active Nebulizer/Tubing/Sindy thpiece KitIndications:COPD, group D, by GOLD 2017 classification ([facility]) Replacement requested as hers isn't [...] COPD, group D, by GOLD 2017 classification ([facility]) 1 dose inhaled every evening. Rinse mouth after use. 90 Each 3 02/22/2023 Active Dicyclomine HCl 10 MG Oral Capsule (Bentyl) Take 1 Capsule by mouth 2 times a day as needed for Cramping. 60 Capsule 1 03/24/2023 Active documented as of this encounter (statuses as of 05/02/2023) Active Problems Problem Noted Date Diagnosed Date [...] nodule 08/14/2019 Coronary artery disease invo lving ely shoshone coronary artery of ely shoshone heart without angina pectoris 08/30/2018 Diabetes mellitus [...] as of this encounter (statuses as of 05/02/2023) Resolved Problems Problem Noted Date Diagnosed Date [...] Cirrhosis of liver without ascites 10/25/2016 05/17/2018 WONG (dyspnea on exertion) 07/25/2016 Localized edema 07/25/2016 [...] as of this encounter (statuses as of 05/02/2023) Immunizations Name Administration Dates Next Due HEP [...] Sign Reading Time Taken Comments Blood Pressure 140/68 05/02/2023 1:47 PM EST Pulse 76 05/02/2023 1:47 PM EST Temperature 36.4 C (97.6 F) 05/02/2023 1:47 PM ES T Respiratory Rate - - Oxygen Saturation 96% 05/02/2023 1:47 PM EST Inhaled Oxygen Concentration - - Weight 84.4 kg (186 lb) 05/02/2023 1:47 PM EST Height - - Body Mass Index 33.48 02/22/2023 3:10 PM EST documented in this encounter Patient Instructions * Patient Instructions* Makayla Johansen LPN - 05/02/2023 1:45 PM EST Diabetes: Keeping Feet Healthy Inspect your feet every day for signs of a problem. Diabetes can damage nerves in your feet and cause neuropathy. This condition makes it hard for you to feel injuries or sore spots. Diabetes can also change blood flow, making it harder for small problems, like a blister, to heal properly. In fact, minor injuries can quickly become serious infections that send you to the hospital. Practice self-care to protect your feet and keep them healthy. Take Special Care Inspect your feet daily for problems such as redness, blisters, cracks, dry skin, or numbness. Use a mirror to see the bottoms of your feet. Or, ask for help. Manage your diabetes. Monitor and control your blood sugar. Take all your medications as prescribed. Avoid walking barefoot, even indoors. Wash your feet with warm water and mild soap. Dry well, especially between toes. Dont treat corns or calluses yourself. Talk to your doctor or bingo manager (a doctor who specializes in foot care) if you need assistance trimming your toenails. Use moisturizing cream or lotion if you have dry skin, but dont use it between toes. Dont use heating pads on your feet. If you have neuropathy, you could get a burn and not feel it. Stop smoking. Smoking restricts blood flow and can make it harder for wounds to heal. Have Regular Checkups Foot problems can develop quickly. So be sure to follow your healthcare teams schedule for regular checkups. During office visits, take off your shoes and socks as soon as you get in the exam room. Ask your healthcare provider to examine your feet for problems. This will make it easier to find and treat small skin irritations before they get worse. Regular checkups can also help keep track of the blood flow and feeling in your feet. If you have neuropathy, you may need to have checkups more often. Wear Proper Footwear Wearing proper footwear is very important. If areas of your feet have been damaged by too much pressure, your healthcare provider may recommend changing your footwear. In some cases, avoiding high heels or tight work boots may be all thats needed. Or, your healthcare provider may recommend special shoes or custom inserts. These help protect your feet and keep existing irritations from getting worse. If you need special footwear, ask your healthcare provider if you qualify for [employer] diabetic shoe program. Make Sure Shoes and Socks Fit Any pair of shoes--new or old--should feel comfortable as soon as you put them on. There shouldnt be any rubbing when you walk. Wear the right shoe for any activity. For instance, a running shoe is designed to keep your feet injury-free while jogging. Buy shoes at the end of the day, when your feet are larger. Make sure they provide support without feeling too loose. Make sure your socks fit, t oo. Wear soft, seamless, well-padded socks for activity. Cotton or microfiber socks are best to help to absorb sweat. To protect your feet, avoid shoes that are open-toed or open-heeled. If you have questions about what kinds of shoes and socks are best, talk to your healthcare team. Get Regular Exercise Regular exercise improves blood flow in your feet. It also increases foot strength and flexibility.Gentle exercises, like walking or riding a stationary bicycle, are best. You can also do special foot exercises. Just be sure to talk with your healthcare provider before starting any exercise program. Also mention if any exercise causes pain, redness, or other signs of foot problems. Note: If you have any kind of break in the skin of your foot or ankle, keep the area clean. Then call your doctor--especially if the area doesnt appear to be healing. [id number] [employer], [address] [place] [address], [place] [address]. All rights reserved. This information is not intended as a substitute for professional medical care. Always follow your healthcare professional's instructions. documented in this encounter Progress Notes * Sandra Rasheed MD - 05/02/2023 1:56 PM EST Subjective: Mildred Moser is a 77 year old female. Chief Complaint Patient presents with Re-Check HPI: Brief Clinical History Ms. Moser is a 77 year old woman last seen in Family Medicine 1 week ago (04-19-23). She is not due for eval of any conditions. Was admitted to [facility] with RSV infection in March. Was very ill and was life flighted to [place]. Blood sugars were managed with insulin while she was admitted. She was treated with steroids. They have been mostly between 100-125 lately. Using CPAP at night. Does not sleep very well and awakens early. Is scheduled to sleep pulmonary/sleep medicine 06/02/23. Is compliant with inhalers. Not ready to quit smoking. Has been feeling bloated the last few days. Is taking torsemide 10 mg daily with an extra dose MWF and takes spironolactone 25 mg MWF and 1/2 tablet all the other days. Legs are little bit swollen. Drinks 3 "bottles" of water a day. Was drinking 8 cups of coffee but has cut back on that. Breathing has been better. Is getting WONG with making her bed. Has been checking her blood oxygen level and was 100% the other day. The lowest has been 89%. She does have oxygen at home right now andhas been using it once a day. Is still smoking about 1/2 PPD. Developed a pain just above the right waist/hip area about 4 days ago. 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 Is a sharp pain and takes her breath away at times. Is slightly better today than the last 3 days. She had a hard time moving at first. No dysuria or frequency but pain seemed worse if she has to urinate and eases up if she urinates. Has [facility] [email or web address] coming in. Seeing Dr. Hodges 05/10/23. Has central retinal vein occlusion. Declines vaccines. Results for orders placed or performed in visit on 04/11/23 CHEMISTRY-OUTSIDE Result Value Ref Range Not all results display below - see scan for full detail CREATININE-OUTSIDE LAB 1.30 (A) 0.55 - 1.02 MG/DL EGFR-OUTSIDE LAB 43 (A) >=60 ML/MIN POTASSIUM-OUTSIDE LAB 3.7 3.5 - 5.1 MMOL/L GLUCOSE-OUTSIDE LAB 200 (A) 70 - 110 MG/DL HOURS FASTING TRIGLYCERIDES-OUTSIDE LAB CHOLESTEROL-OUTSIDE LAB HDL-OUTSIDE LAB CHOL/HDL RATIO-OUTSIDE LAB LDL (CALCULATED)-OUTSIDE LAB LDL (DIRECT MEASURE)-OUTSIDE LAB HEMOGLOBIN, [id number] LAB PHOSPHORUS-OUTSIDE LAB PTH-OUTSIDE LAB MICROALBUMIN RATIO-OUTSIDE LAB PROTEIN, UA-OUTSIDE LAB HEMOGLOBIN-OUTSIDE LAB 12.8 12.0 - 16.0 GM/DL *Note: Due to a large number of results and/or encounters for the requested time period, some results have not been displayed. A complete set of results can be found in Results Review. PHM: Patient Active Problem List Diagnosis Code Hypertension with goal blood pressure less than 140/80 I10 Advanced directives, counseling/discussion Z71.89 Central retinal vein occlusion H34.8192 Hypertensive retinopathy H35.039 Persistent insomnia G47.00 Tobacco use disorder F17.200 Family history of ischemic heart disease Z82.49 OMARI (obstructive sleep apnea) G47.33 COPD, group D, by GOLD 2017 classification ([facility]) J44.9 Allergy to iodinated contrast Z91.041 Type 2 diabetes mellitus with hemoglobin A1c goal of less than 8.0% ([facility]) E11.9 Gastric ulcer K25.9 MGUS (monoclonal gammopathy of unknown significance) D47.2 Centrilobular emphysema ([facility]) J43.2 Nocturnal hypoxemia G47.34 Diabetes mellitus type 2 with peripheral artery disease ([facility]) E11.51 Coronary artery disease involving ely shoshone coronary artery of ely shoshone heart without angina pectoris I25.10 Lung nodule R91.1 Gastro-esophageal reflux disease without esophagitis K21.9 Type 2 diabetes mellitus with stage 3b chronic kidney disease, without long-term current use of insulin ([facility]) E11.22, N18.32 Hypertensive kidney disease with stage 3b chronic kidney disease ([facility]) I12.9, N18.32 Pulmonary hypertension ([facility]) I27.20 Type 2 diabetes mellitus with diabetic cataract ([facility]) E11.36 Dyslipidemia, goal LDL below 70 E78.5 Constipation K59.00 Immunization not carried out because of patient decision Z28.20 Chronic diastolic congestive heart failure ([facility]) I50.32 Type 2 diabetes mellitus with diabetic neuropathy, without long-term current use of insulin ([facility]) E11.40 Current Outpatient Medications Medication Sig Dispense Refill ASPIRIN 81 MG PO TABS Take by mouth at bedtime. Cholecalciferol 1000 UNITS Capsule Take 1 Capsule by mouth at bedtime. 30 Cap 3 meclizine (ANTIVERT) 25 MG Tablet Take 1 Tab by mouth 3 times a day as needed for Dizziness. Indications: Given script for 8 tablets to use x 5 days at [facility] 06-14-18 90 Tab 0 CPAP every night at bedtime. Olopatadine HCl 0.2 % Ophthalmic Solution (Pataday) Instill 1 Drop into both eyes daily. 5 mL 12 Vitamin C 1000 MG Oral Tablet Take 1 Tablet by mouth in the morning. 1 tab daily in the winter. Calcium Carb-Cholecalciferol 600-1000 MG-UNIT Oral Capsule Take by mouth . 1 daily glipiZIDE ER 5 MG Oral Tablet Extended Release 24 Hour (Glucotrol XL) TAKE ONE TABLET BY MOUTH EVERY MORNING 100 Tablet 1 Metoprolol Tartrate 25 MG Oral Tablet (Lopressor) TAKE ONE-HALF TABLET BY MOUTH TWICE A DAY. 90 Tablet 3 Ipratropium-Albuterol 0.5-2.5 (3) MG/3ML Inhalation Solution (Duoneb) INHALE ONE VIAL VIA NEBULIZEREVERY 6 HOURS NEEDED FOR DYSPNEA 1080 mL 5 Albuterol Sulfate HFA 108 (90 Base) MCG/ACT Inhalation Aerosol Solution INHALE TWO PUFFS BY MOUTH EVERY 4 HOURS NEEDED FOR COUGH, FOR SHORTNESS OF BREATH, OR WHEEZING 54 g 3 Torsemide 10 MG Oral Tablet (Demadex) TAKE ONE TABLET BY MOUTH ONCE DAILY TAKE ONE ADDITIONAL TABLET BY MOUTH IN THE AFTERNOON ON MONDAY, MONDAY AND MONDAY 135 Tablet 1 Losartan Potassium 50 MG Oral Tablet (Cozaar) TAKE ONE TABLET BY MOUTH EVERY DAY 100 Tablet 4 Spironolactone 25 MG Oral Tablet (Aldactone) TAKE ONE TABLET BY MOUTH ON MONDAY, MONDAY, AND MONDAY. TAKE ONE-HALF TABLET ON ALL OTHER DAYS OF THE WEEK 64 Tablet 3 Atorvastatin Calcium 40 MG Oral Tablet (Lipitor) Take 1 Tablet by mouth every day 90 Tablet 3 Omeprazole 20 MG Oral Capsule Delayed Release (PriLOSEC) Take 1 Capsule by mouth in the morning. 90Capsule 3 OneTouch Delica Plus [id number] Use to test blood sugar up to twice daily. Dx E11.9 200 Each 3 OneTouch Verio In Vitro Strip (Glucose Blood) USE TO TEST BLOOD SUGAR UP TO TWICE DAILY 200 Strip 2 Nebulizer/Tubing/Mouthpiece Kit Replacement requested as hers isn't delivering medicine well and isold. DME: [facility] 1 Kit 0 B Complex Oral Capsule Take 1 Capsule by mouth in the morning. Anoro Ellipta 62.5-25 MCG/ACT Inhalation Aerosol Powder Breath Activated (umeclidinium-vilanterol) Inhale 1 dose by mouth every morning. 180 Each 3 Arnuity Ellipta 200 MCG/ACT Inhalation Aerosol Powder Breath Activated (fluticasone Furoate) 1 doseinhaled every evening. Rinse mouth after use. 90 Each 3 Dicyclomine HCl 10 MG Oral Capsule (Bentyl) Take 1 Capsule by mouth 2 times a day as needed for Cramping. 60 Capsule 1 No current facility-administered medications for this visit. Past Medical History: Diagnosis Date COPD (chronic obstructive pulmonary disease) ([facility]) COVID-19 10/25/2021 CRVO (central retinal vein occlusion) OS Dyslipidemia, goal LDL below 130 Hypercholesteremia Hypertension Hypertension goal BP (blood pressure) < 140/90 Hypertensive retinopathy OU Impaired fasting glucose 02/22/2013 Lung nodule PAD (peripheral artery disease) ([facility]) 07/22/2014 Pneumonia 06/08/2015 [facility] 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 Urinary, incontinence, stress female Vitreous hemorrhage of left eye ([facility]) Past Surgical History: Procedure Laterality Date ARTHO,SHOUL,W/ROTATOR CUFF x 2 BREAST LESION,OTHER,EXCISION Right Benign-fatty tumor COLONOSCOPY 09/15/2014 adenomatous polyp, diverticulosis and AVM in cecum, repeat 5 yrs COLONOSCOPY, DIAGNOSTIC (RECTUM) 09/15/2014 COLONOSCOPY FLEXIBLE PROXIMAL DIAGNOSTIC performed by Lauren Kenny MD at ENDOSCOPY [facility] COLONOSCOPY, DIAGNOSTIC (RECTUM) 09/16/2019 diverticulosis sigmoid and descending colon/biopsies show serrated adenomatous polyps/recall 6 months/COLONOSCOPY FLEXIBLE PROXIMAL DIAGNOSTIC performed by Lauren Kenny MD at ENDOSCOPY [facility] COLONOSCOPY, DIAGNOSTIC (RECTUM) N/A 02/27/2020 adenomatous polyp, diverticulosis, repeat 3 yrs / COLONOSCOPY FLEXIBLE PROXIMAL DIAGNOSTIC performed by Lauren Kenny MD at ENDOSCOPY [facility] COLONOSCOPY, DIAGNOSTIC (RECTUM) N/A 07/13/2022 [facility], colonoscopy, diverticulosis in sigmoid / no specimens collected / 5 year recall / CYSTOSCOPY 06/18/2013 CYSTOURETHROSCOPY performed by Charlee Handley MD at OR [facility] EGD, FLEXIBLE, DIAGNOSTIC 02/20/2017 mild stomach irritation, gastric ulcers, hiatal hernia, repeat 3 mo/ESOPHAGOGASTRODUODENOSCOPY (EGD), FLEXIBLE, TRANSORAL, DIAGNOSTIC performed by Maye Zavala MD at ENDOSCOPY [facility] EGD, FLEXIBLE, DIAGNOSTIC 05/29/2017 hiatal hernia/ESOPHAGOGASTRODUODENOSCOPY (EGD), FLEXIBLE, TRANSORAL, DIAGNOSTIC performed by MD Sepideh at ENDOSCOPY [facility] EGD, FLEXIBLE, DIAGNOSTIC N/A 07/13/2022 [facility], EGD normal scope / no specimens collected / HC RIGHT HEART CATH Right 08/08/2016 Daryn INFORMATION at 63 yrs old lump on right foot INJECTION OF EYE DRUG Left 01/06/2015 [facility] #1-Dr. Arguello INJECTION OF EYE DRUG Left 02/09/2015 [facility] #2 Dr Arguello INJECTION OF EYE DRUG Left 03/23/2015 [facility] # 3 Dr. Arguello INJECTION OF EYE DRUG Left 05/25/2015 [facility] #4 Dr Arguello INJECTION OF EYE DRUG Left 06/29/2015 [facility] # 5 Dr. Arguello INJECTION OF EYE DRUG Left 09/07/2015 [facility] # 6 Dr. Arguello INJECTION OF EYE DRUG Left 11/09/2015 [facility] # 7 Dr Arguello INJECTION OF EYE DRUG Left 12/14/2015 [facility] # 8 Dr. Arguello INJECTION OF EYE DRUG Left 01/28/2016 [facility] # 9 INJECTION OF EYE DRUG Left 03/22/2016 # 10 [facility], Dr. Hodges INJECTION OF EYE DRUG Left 06/01/2016 # 11 [facility], Dr Hodges INJECTION OF EYE DRUG Left 07/27/2016 # 12 [facility], Dr Hodges INJECTION OF EYE DRUG Left 09/28/2016 # 13 [facility], INJECTION OF EYE DRUG Left 11/23/2016 # 14 [facility], Dr Hodges INJECTION OF EYE DRUG Left 01/18/2017 # 15 [facility], Dr. Hodges INJECTION OF EYE DRUG Left 03/08/2017 # 16 [facility], INJECTION OF EYE DRUG Left 05/03/2017 # 17 [facility], Dr. Hodges INJECTION OF EYE DRUG Left 07/05/2017 #18 [facility], Dr Hodges INJECTION OF EYE DRUG Left 08/23/2017 # 19 [facility], Dr. Hodges INJECTION OF EYE DRUG Left 10/18/2017 # 20 [facility], Dr. Hodges INJECTION OF EYE DRUG Left 12/27/2017 # 21 [facility], Dr. Hodges INJECTION OF EYE DRUG Left 02/21/2018 # 22 [facility], INJECTION OF EYE DRUG Left 04/18/2018 #23 [facility], Dr. Hodges INJECTION OF EYE DRUG Left 06/13/2018 # 24 [facility], Dr. Hodges INJECTION OF EYE DRUG Left 08/15/2018 # 25 [facility], INJECTION OF EYE DRUG Left 10/24/2018 # 26 [facility], INJECTION OF EYE DRUG Left 01/02/2019 # 27 [facility], Dr. Hodges INJECTION OF EYE DRUG Left 03/21/2019 # 28 [facility], Dr. Hodges INJECTION OF EYE DRUG Left 06/13/2019 # 29 [facility], MAMMOGRAM SCREENING BILATERAL Bilateral 10/27/2022 heterogeneously dense, postsurgical changes on right, stable calcifications, category 2 repeat 1 year MISCELLANEOUS ORDER ([facility] ONLY) Right wrist sx. MISCELLANEOUS ORDER ([facility] ONLY) Left 01/06/15-01/07/16 [facility](consent signed)-Dr. Arguello MISCELLANEOUS ORDER ([facility] ONLY) Left 01/28/2016-01/27/2017 [facility] Consent signed, MISCELLANEOUS ORDER ([facility] ONLY) Left 03/08/17-03/08/18 [facility] CONSENT SIGNED, Dr. Hodges MISCELLANEOUS ORDER ([facility] ONLY) Left 04/18/2018-04/18/2019 [facility] CONSENT SIGNED, DR. HODGES MISCELLANEOUS ORDER ([facility] ONLY) ACT 112 SIGNED, Dr. Hodges (06-13-2018) MISCELLANEOUS ORDER ([facility] ONLY) Left 06/13/2019- [facility] CONSENT, DR. HODGES REMOVAL OF APPENDIX [facility] Josef, CINDA Wang REMOVAL OF OVARY/OVIDUCT(S) bilateral - PAH REMOVAL OF TONSILS, UNDER AGE [age] yo [facility] - Dr. JAMIA Wang REMOVE GALLBLADDER at 61yrs old lap REPAIR ARM TENDON/MUSCLE 1998 right side REPAIR BLADDER DEFECT 06/18/2013 VAGINAL SLING PROCEDURE FOR STRESS INCONTINENCE performed by Charlee Handley MD at OR [facility] REPAIR INITIAL INCISIONAL OR VENTRAL HERNIA; REDUCIBLE post hysterectomy - has mesh in- Dr. 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 [employer] Employer: [employer] Tobacco Use Smoking status: Every Day Packs/day: 2.00 Years: 58.00 Additional pack years: 0.00 Total pack years: 116.00 Types: Cigarettes Smokeless tobacco: Never Tobacco comments: 03/30/22 currently smoking 10-15 cig/day - max smoked was 2 ppd Vaping Use Vaping Use: Never used Substance and Sexual Activity Alcohol use: Yes Alcohol/week: 0.0 standard drinks of alcohol Comment: rare wine Drug use: No Sexual activity: Not Currently Partners: Male Other Topics Concern Service No Blood Transfusions No Caffeine Concern Yes Occupational Exposure No Hobby Hazards No Sleep Concern No Stress Concern No Weight Concern Yes Special Diet Not Asked Back Care No Exercise No Bike Helmet Not Asked Seat Belt Yes Self-Exams Not Asked Social History Narrative 10/07 Social Determinants of Health Financial Resource Strain: Not on file Food Insecurity: Unknown (04/18/2023) Hunger Vital Sign Worried About Running Out of Food in the Last Year: Patient refused Ran Out of Food in the Last Year: Patient refused Transportation Needs: Not on file Physical Activity: Not on file Stress: Not on file Social Connections: Not on file Intimate Partner Violence: Not on file Housing Stability: Not on file Review of patient's allergies indicates: Allergen Reactions Iodinated Contrast Media Hives 48 hours post cardiac cath. No respiratory symptoms Influenza Vaccines Had flu symptoms x 1 month after injection Sulfa Antibiotics Unknown Objective: BP 140/68 | Pulse 76 | Temp 36.4 C (97.6 F) (Tympanic) | Wt 84.4 kg (186 lb) | SpO2 96% | BMI 33.48 kg/m | BSA 1.93 m Physical Exam: General: alert, no distress, well nourished, and well developed Head: Normocephalic, No masses, lesions, tenderness or abnormalities Eye Exam: PERRLA, extraocular movements intact, conjunctiva are pink and non- injected, sclera clear Ears: External ears normal, Canals clear, TM's Normal Nose: no mucosal erythema, no mucosal edema, no purulent discharge Oropharynx: no exudate, no erythema, lips, buccal mucosa, and tongue normal, and mucous membranes are moist Neck: supple, no adenopathy, no bruits Heart: regular rate & rhythm, no murmur, and no gallops Lungs: chest symmetric with normal AP diameter, no chest deformities noted, no chest wall tenderness, lungs clear to auscultation, decreased breath sounds Back: +tender to palpation of right paralumbar muscle just above iliac crest. No CVA tenderness Extremities: no clubbing, no cyanosis, 1+ edema bilateral lower extremities Neuro Exam: alert & oriented x 3 with fluent speech, no focal motor/sensory deficits Extensive ROS Constitutional (f/c/wt/vision/hearing): see above hpi Resp (cough/sob/wong): see above hpi CV (cp/palp/fluttering/diaphoresis/wong/pnd):see above hpi GI (n/v/d/hrtburn): Negative Endo (hair/cold or heat intol/ 3 p's): see above hpi Neuro (shaking/weak/fatigu/parasthesi/): Negative Skin (rash/easy bruis/xerosis): Negative Psy (si/hi/halluc/): Negative (nocturia/hesit/drib/sexual review): Negative Lymph (swollen glands/b sx's/: Negative ASSESSMENT: COPD, group D, by GOLD 2017 classification (HCC) (Primary)--recent admission with RSV. Currently has oxygen at home. Follow-up with pulmonary as scheduled. Is feeling much better. Continue Anoro, Arnuity, and Duoneb/albuterol as needed. Does not want to quit smoking. Chronic diastolic congestive heart failure (HCC)--weight is up, has some edema, and feels bloated. Increase torsemide to 10 mg twice a day for the remainder of the week, through Monday05/05/23. Continue spironolactone. Type 2 diabetes mellitus with stage 3b chronic kidney disease, without long-term current use of insulin ([facility])--diabetes controlled. Continue glipizide ER 5 mg daily. - ALBUMIN / CREATININE RATIO, URINE; Future; Expected date: 05/02/2023 - CBC WITH WBC DIFFERENTIAL; Future; Expected date: 05/02/2023 - BASIC METABOLIC PANEL; Future; Expected date: 05/02/2023 DM type 2 nursing care encounter ([facility]) - DIABETES FOOT EXAM Coronary artery disease involving ely shoshone coronary artery of ely shoshone heart without angina pectoris--stable. Follow-up with cardiology as scheduled. Continue aspirin 81 mg daily, beta jeremy, and statin. Type 2 diabetes mellitus with diabetic neuropathy, without long-term current use of insulin ([facility])--controlled with glipizide ER 5 mg daily. - HEMOGLOBIN A1C; Future; Expected date: 05/02/2023 Dyslipidemia, goal LDL below 70--continue atorvastatin 40 mg daily. Central retinal vein occlusion, unspecified complication status, unspecified laterality--follow-up with Dr. Hodges 05/10/23 as scheduled. Hypertensive kidney disease with stage 3b chronic kidney disease ([facility])--blood pressure controlled with losartan 50 mg daily, metoprolol 25 mg twice daily . MGUS (monoclonal gammopathy of unknown significance)--stable Flank pain--suspect muscle strain but r/o UTI. - URINALYSIS, REFLEX TO CULTURE (NOT FOR NEUTROPENIC PATIENTS); Future; Expected date: 05/02/2023 Muscle strain--recommend heating pad and topical pain cream as needed. Is improving. Follow Up: Return in about 6 months (around 10/31/2023) for Clinic Visit. | For: Clinic Visit PLAN: Continue present medication(s): Change medications: Increase torsemide to 10 mg twice daily from today through 05/05/23 for weight gain, bloating, edema, and CHF. Schedule labs: A1C, CBC w/diff, BMP, UA with reflex to culture, and microalbumin Patient education: Discussed smoking cessation, increase torsemide as above. Continue oxygen as needed. Follow up: in 6 month(s). Sandra Rasheed MD * Makayla Johansen LPN - 05/02/2023 1:45 PM EST DM Foot Exam completed today. Provider aware. Makayla Johansen LPN Socks and Shoes Removed for Annual Diabetic Foot Screening RIGHT FOOT: No Reddened, Cracking, Or Open Areas Noted. RIGHT Dorsalis Pedis Pulse: Palpable RIGHT Posterior Tibial Pulse: Palpable RIGHT Monofilament:Patient reports difficulty feeling monofilament at Great toe- plantar surface, Third toe-plantar surface, Ball of Foot-base of great toe, Ball of Foot-base of 3rd toe, and Ball of Foot-base of little toe LEFT FOOT: No Reddened, Cracking or Open Areas Noted. LEFT Dorsalis Pedis Pulse: Palpable LEFT Posterior Tibial Pulse: Palpable LEFT Monofilament:Patient reports difficulty feeling monofilament at Great toe- plantar surface, Third toe-plantar surface, Ball of Foot-base of great toe, Ball of Foot-base of 3rd toe, and Ball of Foot-base of little toe Do you need diabetic shoes: No documented in this encounter Nursing Notes * Makayla Johansen LPN - 05/02/2023 1:46 PM EST 6 month recheck Right above right hip/waist area, gets sharp pain in back that takes breath away. Started on Monday. Went to bend down to put slippers on & when bent over, pain happened Feels bloated, unsure "water pills" are doing any good. Has been using oxygen at home still at times documented in this encounter Plan of Treatment Upcoming Encounters Date Type Department Care Team (Late st Contact Info) Description 05/10/2023 11:30 AM EST Office Visit Ophthalmology, [facility] [address] [place] [address] Mulugeta Hodges DO [address] [place] [address] 06/02/2023 11:00 AM EDT Office Visit Sleep Disorders Ctr [facility] [address] [phone] Aminata Quiroz CRNP [address] [place] [address] 07/27/2023 3:00 PM EDT Office Visit Cardiology, [facility] [address] [place] [address] Laquita Leija CRNP [address] [place] [address] 07/31/2023 1:30 PM EDT Nurse Only Ancillary [address] [place] [address] [place], Nurse [address] [place] [address] 09/06/2023 10:00 AM EDT Office Visit Sleep Disorders Ctr [facility] [address] [place] [phone] Aminata Quiroz CRNP [address] [place] [address] 09/08/2023 1:00 PM EDT Office Visit Gastroenterology [address] [place] [address] Jelly Mills CRNP [address] [place] [address] 10/31/2023 3:00 PM EDT Office Visit Family [address] [place] [phone] Susy Ochoa PA-C [address] [place] [address] [place] [address] 02/28/2024 11:00 AM EST Imaging Radiology [address], [place] [address] [facility] [place] [address] 05/07/2024 4:00 PM EST Office Visit Family [address] [place] [phone] Sandra Rasheed MD [address] [place] [address] [place] [phone] Pending Results Name Type Priority Associated Diagnoses Date /Time ALBUMIN / CREATININE RATIO, URINE Lab Routine Type 2 diabetes mellitus with stage 3b chronic kidney disease, without long-term current use of insulin ([facility]) 05/02/2023 2:28 PM EST HEMOGLOBIN A1C Lab Routine Type 2 diabetes mellitus with diabetic neuropathy, without long-term current use of insulin ([facility]) 05/02/2023 2:28 PM EST CBC WITH WBC DIFFERENTIAL Lab Routine Type 2 diabetes mellitus with stage 3b chronic kidney disease, without long-term current use of insulin ([facility]) 05/02/2023 2:28 PM EST BASIC METABOLIC PANEL Lab Routine Type 2 diabetes mellitus with stage 3b chronic kidney disease, without long-term current use of insulin ([facility]) 05/02/2023 2:28 PM EST URINALYSIS, REFLEX TO CULTURE (NOT FOR NEUTROPENIC PATIENTS) Lab Routine Flank pain 05/02/2023 2:28 PM EST Scheduled Orders Name Type Priority Associated Diagnoses Orde r Schedule ALBUMIN / CREATININE RATIO, URINE Lab Routine Type 2 diabetes mellitus with stage 3b chronic kidney disease, without long-term current use of insulin (HCC) Expected: 05/02/2023, Expires: 05/02/2024 HEMOGLOBIN A1C Lab Routine Type 2 diabetes mellitus with diabetic neuropathy, without long-term current use of insulin (HCC) Expected: 05/02/2023 (Approximate), Expires: 05/30/2024 CBC WITH WBC DIFFERENTIAL Lab Routine Type 2 diabetes mellitus with stage 3b chronic kidney disease, without long-term current use of insulin (HCC) Expected: 05/02/2023 (Approximate), Expires: 05/02/2024 BASIC METABOLIC PANEL Lab Routine Type 2 diabetes mellitus with stage 3b chronic kidney disease, without long-term current use of insulin (HCC) Expected: 05/02/2023 (Approximate), Expires: 05/01/2024 URINALYSIS, REFLEX TO CULTURE (NOT FOR NEUTROPENIC PATIENTS) Lab Routine Flank pain Expected: 05/02/2023, Expires: 05/02/2024 Scheduled Procedures Name Priority Associated Diagnoses Date/Ti me COLONOSCOPY FLEXIBLE PROXIMAL DIAGNOSTIC Recall History of colon polyps Health Maintenance Due Date Last Done Comments COVID-19 Vaccine (#1) 04/04/1946 Zoster Vaccines (1 of 2) 1996 *ADVANCE DIRECTIVE NOT ON FILE 09/01/2018 DISCUSS TOBACCO CESSATION (REFER TO SMARTSET #9481) 12/02/2021 12/02/2020 Influenza Vaccine (FLU shot) (#1) 2022 12/03/2013 Albumin/Creatinine Ratio 04/26/2023 023, 08/10/2020, 12/06/2019, Additional history exists HbA1c 04/29/2023 10/27/2022, 02/0 09/2022, 04/21/2021, Additional history exists DXA Scan 07/24/2023 07/23/2020, 07/20, 03/25/2013 Depression Screening 07/27/2023 07/26/2022 Diabetic Eye Exam 08/11/2023 08/10/2022, , 07/01/2021, Additional history exists GFR 10/09/2023 04/10/2023, 03/20, 02/03/2023, Additional history exists CKD PHOS USE SMARTSET 68673 03/27/202410/2023, 04/26/2022, 04/21/2021, Additional history exists CKD HGB USE SMARTSET 11782 04/10/202404/10, 04/04/2023, 03/27/2023, Additional history exists O2 ASSESSMENT COMPLETED IN PAST YEAR FOR COPD 04/19/2024 04/19/2023 Diabetic Foot Exam 05/02/2024 05/02/2023, 0 04/26/2022, 07/22/2021, Additional history exists COLONOSCOPY-EVERY 3 YRS AGES [...] this encounter Medical Devices Implanted Type Area Flatcar Whacker Device Identifier Shelf Expiration Date Model / Serial / Lot Gynecare Tvt Device Implanted:Qty: 1 on 06/18/2013 at OR [facility] N/A: Bladder 02/17/2016 [id number] / / [id number] documented as of this encounter Visit Diagnoses Diagnosis COPD, group D, by GOLD 2017 classification (HCC)- Primary Chronic diastolic congestive heart failure (HCC) Chronic diastolic heart failure Type 2 diabetes mellitus with stage 3b chronic kidney disease, without long-term current use of insulin (HCC) DM type 2 nursing care encounter (HCC) Type II or unspecified type diabetes mellitus without mention of complication, not stated as uncontrolled Coronary artery disease involving ely shoshone coronary artery of ely shoshone heart without angina pectoris Type 2 diabetes mellitus with diabetic neuropathy, without long-term current use of insulin (HCC) Dyslipidemia, goal LDL below 70 Other and unspecified hyperlipidemia Central retinal vein occlusion, unspecified complication status, unspecified laterality Hypertensive kidney disease with stage 3b chronic kidney disease (HCC) MGUS (monoclonal gammopathy of unknown significance) Monoclonal paraproteinemia Flank pain Abdominal pain, unspecified site Muscle strain Unspecified site of sprain and strain documented in this encounter Care Teams Forestry Aid Technician Relationship Specialty Start Date End Date Sandra Rasheed MD [address] [place] [address] [place] [phone] PCP - General Family Medicine 06/05/15 documented as of this encounter
--- OUTSIDE RECORDS SUMMARY | 2023-06-01 06:48 | External Medical Summary ---
Author Name Unknown Address Unknown Organization K01:[facility]ATORY [facility] [place] - [address] [place] [address] Laboratory Report Ordering Provider Test Date Status LOUISE HEADLEY 05/02/2023 14:28:38 Final Observation Date Value Abnormality Reference (Units ) Status WBC, Total 05/02/2023 14:28:38 4.85 4.00-10.80 (K/uL) Final RBC 05/02/2023 14:28:38 4.25 3.85-5.15 (M/uL) Final Hemoglobin 05/02/2023 14:28:38 13.4 12.0-15.3 (g/dL) Final HCT 05/02/2023 14:28:38 39.2 36.0-45.2 (%) Final MCV 05/02/2023 14:28:38 92.2 81.5-97.5 (fL) Final MCH 05/02/2023 14:28:38 31.5 27.0-34.0 (pg) Final MCHC 05/02/2023 14:28:38 34.2 32.0-36.0 (g/dL) Final RDW 05/02/2023 14:28:38 14.8 11.5-15.5 (%) Final Platelets 05/02/2023 14:28:38 157 140-400 (K/uL) Final MPV 05/02/2023 14:28:38 9.7 6.6-11.1 (fL) Final Nucleated erythrocytes/100 leukocytes [Ratio] in Blood by Automated count 05/02/2023 14:28:38 0 <=0 (/100 WBCs) Final Performing Location [facility] [place] - [address] [place] [address]
--- OUTSIDE RECORDS SUMMARY | 2023-06-01 06:48 | External Medical Summary ---
Author Name Unknown Address Unknown Organization K01:LABORATORY [facility] [place] - [address] [facility] [address] Laboratory Report Ordering Provider Test Date Status LOUISE HEADLEY 05/02/2023 14:28:38 Final Observation Date Value Abnormality Reference (Units ) Status Color of Urine by Auto 05/02/2023 14:28:38 Yellow Colorless, Light Yellow, Yellow, Dark Yellow Final Clarity, Urine 05/02/2023 14:28:38 Clear Clear Final Glucose [Mass/volume] in Urine by Automated test strip 05/02/2023 14:28:38 Negative Negative (mg/dL) Final Bilirubin.total [Presence] in Urine by Automated test strip 05/02/2023 14:28:38 Negative Negative Final Ketones [Mass/volume] in Urine by Automated test strip 05/02/2023 14:28:38 Negative Negative (mg/dL) Final Specific gravity, Urine 05/02/2023 14:28:38 1.022 1.003-1.030 Final Hemoglobin [Presence] in Urine by Automated test strip 05/02/2023 14:28:38 Negative Negative Final pH, Urine 05/02/2023 14:28:38 6.0 5.0-7.5 (Units) Final Protein [Mass/volume] in Urine by Automated test strip 05/02/2023 14:28:38 Trace Abnormal Negative (mg/dL) Final Urobilinogen [Mass/volume] in Urine by Automated test strip 05/02/2023 14:28:38 Normal Normal (mg/dL) Final Nitrite [Presence] in Urine by Automated test strip 05/02/2023 14:28:38 Negative Negative Final Leukocyte esterase [Presence] in Urine by Automated test strip 05/02/2023 14:28:38 Negative Negative Final RBC, Urine 05/02/2023 14:28:38 0-2 0-2 (/HPF) Final WBC, Urine 05/02/2023 14:28:38 0-2 0-2 (/HPF) Final Bacteria [#/area] in Urine sediment by Microscopy high power field 05/02/2023 14:28:38 0-25 0-25 (/HPF) Final CULTURE, [facility] 05/02/2023 14:28:38 Final Culture not indicated by uri nalysis results\X09\ Performing Location LABORATORY [facility] [place] - [facility] [address] [facility] [address]
--- OUTSIDE RECORDS SUMMARY | 2023-06-01 06:48 | External Medical Summary ---
Author Name Unknown Address Unknown Organization K01:LABORATORY [facility] [place] - [address] [facility] [place] [address] Laboratory Report Ordering Provider Test Date Status LOUISE HEADLEY 05/02/2023 14:28:38 Final Observation Date Value Abnormality Reference (Units ) Status SYNC LEUKOCYTES IN BLOOD BY AUTOMATED COUNT 05/02/2023 14:28:38 4.85 4.00-10.80 (K/uL) Final Segs 05/02/2023 14:28:38 63.6 40.0-75.0 (%) Final Lymphs % 05/02/2023 14:28:38 24.7 18.0-42.0 (%) Final Monos 05/02/2023 14:28:38 7.4 1.0-11.0 (%) Final Eosinophils 05/02/2023 14:28:38 2.3 0.0-6.0 (%) Final Basos 05/02/2023 14:28:38 1.6 0.0-2.0 (%) Final Immature Granulocyte, Percent 05/02/2023 14:28:38 0.4 0.0-2.0 (%) Final Absolute Segs 05/02/2023 14:28:38 3.08 1.80-7.70 (K/uL) Final Lymphs, absolute 05/02/2023 14:28:38 1.20 1.00-4.80 (K/ul) Final Monos, Abs 05/02/2023 14:28:38 0.36 0.00-1.10 (K/uL) Final Eos, Abs 05/02/2023 14:28:38 0.11 0.00-0.70 (K/uL) Final Basos, Abs 05/02/2023 14:28:38 0.08 0.00-0.20 (K/uL) Final Immature Granulocytes, Number 05/02/2023 14:28:38 0.02 0.00-0.20 (K/uL) Final Performing Location LABORATORY [facility] [place] - [address] [facility] [address]
--- OUTSIDE RECORDS SUMMARY | 2023-06-01 06:48 | External Medical Summary | Summary of Care ---
Author Name Unknown Organization [facility] Address [address] [place] [address] Phone [phone] Care Team Providers Care Punch Operator Name Role Phone Sandra Rasheed MD Primary Care Provide r Encounter Details Date Type Department Care Team (Late st Contact Info) Description 04/26/2023 Orders Only PATIENT PORTAL DO NOT DELETE THIS DEPT USED BY C[place]DA RICHARD [id number] Allergies Active Allergy Reactions Criticality Noted Date Comments Influenza Vaccines 01/06/2015 Had flu symptoms x 1 month after injection Iodinated Contrast Media High 09/01/2016 Hives 48 hours post cardiac cath. No respiratory symptoms Sulfa Antibiotics Unknown 02/22/2013 documented as of this encounter (statuses as of 04/26/2023) Medications Medication Sig Dispensed Refills Start Date End Date Status ASPIRIN 81 MG PO TABS Take by mouth at bedtime. 0 Active Cholecalciferol 1000 UNITS Capsule Take 1 Capsule by mouth at bedtime. 30 Cap 3 09/09/2016 Active meclizine (ANTIVERT) 25 MG TabletIndications:Gi daren script for 8 tablets to use x 5 days at [facility] 06-14-18 Take 1 Tab by mouth 3 times a day as needed for Dizziness. Indications: Given script for 8 tablets to use x 5 days at [facility] 06-14-18 90 Tab 0 10/31/2018 Active [...] 3 12/26/2022 4 Active OneTouch Delica Plus [id number] :Type 2 diabetes mellitus with hemoglobin A1c goal of less than 8.0% ([facility]) Use to test blood sugar up to twice daily. Dx E11.9 200 Each 3 01/11/2023 Active OneTouch Verio In Vitro Strip (Glucose Blood)Indications:Ty pe 2 diabetes mellitus with hemoglobin A1c goal of less than 8.0% ([facility]) USE TO TEST BLOOD SUGAR UP TO TWICE DAILY 200 Strip 2 02/22/2023 5 Active Nebulizer/Tubing/Sindy thpiece KitIndications:COPD, group D, by GOLD 2017 classification ([facility]) Replacement requested as hers isn't delivering medicine [...] D, by GOLD 2017 classification ([facility]) 1 dose inhaled every evening. Rinse mouth after use. 90 Each 3 02/22/2023 Active Dicyclomine HCl 10 MG Oral Capsule (Bentyl) Take 1 Capsule by mouth 2 times a day as needed for Cramping. 60 Capsule 1 03/24/2023 Active documented as of this encounter (statuses as of 04/26/2023) Active Problems Problem Noted Date Diagnosed Date Immunization not carried out because of patient [...] nodule 08/14/2019 Coronary artery disease invo lving asa'[place] coronary artery of [place] heart without angina pectoris 08/30/2018 Diabetes mellitus [...] as of this encounter (statuses as of 04/26/2023) Resolved Problems Problem Noted Date Diagnosed Date [...] as of this encounter (statuses as of 04/26/2023) Immunizations Name Administration Dates Next Due HEP [...] Care Team (Late st Contact Info) Description 05/02/2023 1:40 PM EST Office Visit Family Medicine [address] [place] [phone] Sandra Rasheed MD [address] [place] [address] [place] [address] 05/10/2023 11:30 AM EST Office Visit Ophthalmology, [facility] [address] [place] [address] Mulugeta Hodges DO [address] [place] [address] 06/02/2023 11:00 AM EDT Office Visit Sleep Disorders Ctr [facility] [address] [place] [phone] Aminata Quiroz CRNP [address] [place] [address] 07/27/2023 3:00 PM EDT Office Visit Cardiology, [facility] [address] [place] [address] Laquita Leija CRNP [address] [place] [address] 07/31/2023 1:30 PM EDT Nurse Only Ancillary [address] [place] [address] [place], Nurse Annual [address] [place] [address] 09/06/2023 10:00 AM EDT Office Visit Sleep Disorders Ctr [facility] [address] [facility] [place] [phone] Aminata Quiroz CRNP [address] [place] [address] 09/08/2023 1:00 PM EDT Office Visit Gastroenterology [address] [place] [address] Jelyl Mills CRNP [address] [place] [address] 02/28/2024 11:00 AM EST Imaging Radiology [address] [facility] [place] [address] Scheduled Procedures Name Priority Associated Diagnoses Date/Ti [...] 04/26/2023 023, 08/10/2020, 12/06/2019, Additional history exists Diabetic Foot Exam 04/26/2023 04/26/2022, 0 07/22/2021, 07/21/2020, Additional history exists HbA1c 04/29/2023 10/27/2022, 020 09/2022, 04/21/2021, Additional history exists DXA Scan 07/24/2023 07/23/2020, 07/20, 03/25/2013 Depression Screening 07/27/2023 07/26/2022 Diabetic Eye Exam 08/11/2023 08/10/2022, , 07/01/2021, Additional history exists GFR 10/09/2023 04/10/2023, 03/20, 02/03/2023, Additional history exists CKD PHOS USE SMARTSET 81060 03/27/202410/2023, 04/26/2022, 04/21/2021, Additional history exists CKD HGB USE SMARTSET 94290 04/10/202404/10, 04/04/2023, 03/27/2023, Additional history exists O2 ASSESSMENT COMPLETED IN PAST YEAR FOR COPD 04/19/2024 04/19/2023 COLONOSCOPY-EVERY 3 YRS AGES 18-100 07/13/2025 07/13/2022, [...] this encounter Medical Devices Implanted Type Area Maintenance Worker Municipal Device Identifier Shelf Expiration Date Model / Serial / Lot Gynecare Tvt Device Implanted:Qty: 1 on 06/18/2013 at OR [facility] N/A: Bladder 02/17/2016 [id number] / / [id number] documented as of this encounter Care Teams Punch Operator Relationship Specialty Start Date End Date Sandra Rasheed MD [address] [place] [address] [place] [phone] PCP - General Family Medicine 06/05/15 documented as of this encounter
--- OUTSIDE RECORDS SUMMARY | 2023-06-01 06:48 | External Medical Summary | Summary of Care ---
Author Name Unknown Organization [facility] Address [address] [place] [address] Phone [phone] Care Team Providers Care Topography Technician Name Role Phone Sandra Rasheed MD Primary Care Provide r Reason for Visit * Reason Onset Date Comments Appointment 04/26/2023 Encounter Details Date Type Department Care Team (Late st Contact Info) Description 04/26/2023 Telephone Family Medicine [address] [phone] Sandra Rasheed MD [address] [place] [id number] Appointment Allergies Active Allergy Reactions Criticality Noted Date Comments Influenza Vaccines 01/06/2015 Had flu symptoms x 1 month after injection Iodinated Contrast Media High 09/01/2016 Hives 48 hours post cardiac cath. No respiratory symptoms Sulfa Antibiotics Unknown 02/22/2013 documented as of this encounter (statuses as of 04/27/2023) Medications Medication Sig Dispensed Refills Start Date End Date Status ASPIRIN 81 MG PO TABS Take by mouth at bedtime. 0 Active Cholecalciferol 1000 UNITS Capsule Take 1 Capsule by mouth at bedtime. 30 Cap 3 09/09/2016 Active meclizine (ANTIVERT) 25 MG TabletIndications:Gi daren script for 8 tablets to use x 5 days at [facility] 06-14-18 Take 1 Tab by mouth 3 times a day as needed for Dizziness. Indications: Given script for 8 tablets to use x 5 days at [facility] 06-14-18 90 Tab 0 10/31/2018 [...] 3 12/26/2022 4 Active OneTouch Delica Plus [id number] :Type 2 diabetes mellitus with hemoglobin A1c goal of less than 8.0% ([facility]) Use to test blood sugar up to twice daily. Dx E11.9 200 Each 3 01/11/2023 Active OneTouch Verio In Vitro Strip (Glucose Blood)Indications:Ty pe 2 diabetes mellitus with hemoglobin A1c goal of less than 8.0% ([facility]) USE TO TEST BLOOD SUGAR UP TO TWICE DAILY 200 Strip 2 02/22/2023 5 Active Nebulizer/Tubing/Sindy thpiece KitIndications:COPD, group D, by GOLD 2017 classification ([facility]) Replacement requested as hers isn't [...] D, by GOLD 2017 classification ([facility]) 1 dose inhaled every evening. Rinse mouth after use. 90 Each 3 02/22/2023 Active Dicyclomine HCl 10 MG Oral Capsule (Bentyl) Take 1 Capsule by mouth 2 times a day as needed for Cramping. 60 Capsule 1 03/24/2023 Active documented as of this encounter (statuses as of 04/27/2023) Active Problems Problem Noted Date Diagnosed Date [...] nodule 08/14/2019 Coronary artery disease invo lving teller coronary artery of teller heart without angina pectoris 08/30/2018 Diabetes mellitus [...] as of this encounter (statuses as of 04/27/2023) Resolved Problems Problem Noted Date Diagnosed Date [...] as of this encounter (statuses as of 04/27/2023) Immunizations Name Administration Dates Next Due HEP [...] 1:40 PM EST Office Visit Family Medicine [address] [place] [phone] Sandra Rasheed MD [address] [place] [address] [place] [address] 05/10/2023 11:30 AM EST Office Visit Ophthalmology, [facility] [address] [place] [address] Mulugeta Hodges DO [address] [place] [address] 06/02/2023 11:00 AM EDT Office Visit Sleep Disorders Ctr [facility] [address] [place] [phone] Aminata Quiroz CRNP [address] [place] [address] 07/27/2023 3:00 PM EDT Office Visit [facility] [place] [address] Laquita Leija CRNP [address] [place] [address] 07/31/2023 1:30 PM EDT Nurse Only Ancillary [address] [place] [address] [place], Nurse Annual [address] [place] [address] 09/06/2023 10:00 AM EDT Office [facility] [place] [phone] Aminata Quiroz CRNP [address] [place] [address] 09/08/2023 1:00 PM EDT Office Visit Gastroenterology [address] [place] [address] Jelly Mills CRNP [address] [place] [address] 02/28/2024 11:00 AM EST Imaging Radiology [address] [place] [address] Scheduled Procedures Name Priority Associated Diagnoses Date/Ti [...] 07/21/2020, Additional history exists HbA1c 04/29/2023 10/27/2022, 02/0 09/2022, 04/21/2021, Additional history exists DXA Scan 07/24/2023 07/23/2020, 07/20, 03/25/2013 Depression Screening 07/27/2023 07/26/2022 Diabetic Eye Exam 08/11/2023 08/10/2022, , 07/01/2021, Additional history exists GFR 10/09/2023 04/10/2023, 03/20, 02/03/2023, Additional history exists CKD PHOS USE SMARTSET 79338 03/27/2024 01/0 10/2023, 04/26/2022, 04/21/2021, Additional history exists CKD HGB USE SMARTSET 07523 04/10/202404/10, 04/04/2023, 03/27/2023, Additional history exists O2 [...] this encounter Medical Devices Implanted Type Area Portfolio Assistant Device Identifier Shelf Expiration Date Model / Serial / Lot Gynecare Tvt Device Implanted:Qty: 1 on 06/18/2013 at OR [facility] N/A: Bladder 02/17/2016 [id number] / / [id number] documented as of this encounter Care Teams Topography Technician Relationship Specialty Start Date End Date Sandra Rasheed MD [address] [place] [address] [place] [address] PCP - General Family Medicine 06/05/15 documented as of this encounter
--- OUTSIDE RECORDS SUMMARY | 2023-06-01 06:48 | External Medical Summary | Summary of Care ---
Author Name Unknown Organization [facility] Address [address] [place] [address] Phone [phone] Care Team Providers Care Formal Wear Rental Clerk Name Role Phone Sandra Rasheed MD Primary Care Provide r Reason for Referral * Precert (Within 10 days (routine)) - Authorized Specialty Diagnoses / Procedures Referred By Contac esteban Referred To Contact Sleep Disorders Diagnoses OMARI (obstructive sleep apnea) Nocturnal hypoxemia Procedures SLEEP STUDY, W/ CPAP (TREATMENT SETTINGS) Aminata Quiroz CRNP [address] [place] [address] Referral ID Status Reason Start Date Expiration Date V isits Requested Visits Authorized [id number] Authorized 07/28/2022 999 999 Reason for Visit * Reason Onset Date Comments Advice 07/26/2022 Re: DME change, titration study scheduling Encounter Details Date Type Department Care Team (Late st Contact Info) Description 07/26/2022 Telephone Family [address] [phone] Sandra Rasheed MD [address] [place] [address] [place] [phone] Advice (Re: DME change, titration study sc... Allergies Active Allergy Reactions Criticality Noted Date [...] 3 7 Active meclizine (ANTIVERT) 25 MG TabletIndications: Given script for 8 tablets to use x 5 days at [facility] 06-14-18 Take 1 Tab by mouth 3 times a day as needed for Dizziness. Indications: Given script for 8 tablets to use x 5 days at [facility] 06-14-18 90 Tab 0 9 Active CPAP every night at bedtime. 0 Active Olopatadine HCl 0.2 % Ophthalmic Solution ([facility]) Instill 1 Drop into both eyes daily. 5 mL 12 1 Active Vitamin C 1000 MG Oral Tablet Take 1 Tablet by mouth in the morning. 1 tab daily in the winter. 0 Active Calcium Carb-Cholecalcifer ol 600-1000 MG-UNIT Oral Capsule Take by mouth . 1 daily 0 Active OneTouch Delica Plus [id number] ns:Type 2 diabetes mellitus with hemoglobin A1c goal of less than 8.0% ([facility]) Use to test blood sugar up to twice daily. Dx E11.9 200 Each 3 1 01/12/20 23 Discontinued(Re fill) Gabapentin 300 MG Oral Capsule (Neurontin) Take 1 Capsule by mouth at bedtime. Pt is taking three times a day 0 02/04/20 23 Discontinued Anoro Ellipta 62.5-25 MCG/INH Inhalation Aerosol Powder Breath Activated (umeclidinium-lety nterol) Inhale 1 Puff by mouth every evening. 0 08/31/19 23 Discontinued(Re fill) Metoprolol Tartrate 25 MG Oral Tablet (Lopressor) One half tablet by mouth two times per day 90 Tablet 3 2 09/10/19 23 Discontinued Losartan Potassium 50 MG Oral Tablet (Cozaar)Indication s:Hypertension with goal blood pressure less than 140/80 TAKE ONE TABLET BY MOUTH EVERY DAY 90 Tablet 3 2 12/02/19 22 Discontinued([facility] prescription brought in as discontinued) Spironolactone 25 MG Oral Tablet (Aldactone)Indicat ions:Hypertension goal BP (blood pressure) < 150/90,Localized edema TAKE ONE TABLET BY MOUTH ON MONDAY, MONDAY AND MONDAY. TAKE ONE- HALF TABLET BY MOUTH ON ALL OTHER DAYS OF THE WEEK 64 Tablet 3 2 12/28/19 22 Discontinued([facility] prescription brought in as discontinued) Omeprazole 20 MG Oral Capsule Delayed Release (PriLOSEC)Indicati ons:Hypertension goal BP (blood pressure) < 150/90 TAKE ONE CAPSULE BY MOUTH EVERY DAY ONE HOUR BEFORE THE FIRST MEAL OF THE DAY 90 Capsule 3 2 12/28/19 22 Discontinued([facility] prescription brought in as discontinued) Atorvastatin Calcium 40 MG Oral Tablet (Lipitor)Indicatio ns:Dyslipidemia, goal LDL below 130,Hypertension goal BP (blood pressure) < 150/90 TAKE ONE TABLET BY MOUTH EVERY DAY 90 Tablet 3 2 12/28/19 22 Discontinued([facility] prescription brought in as discontinued) OneTouch Verio In Vitro Strip (Glucose Blood)Indications: Type 2 diabetes mellitus with hemoglobin A1c goal of less than 8.0% ([facility]) USE TO TEST BLOOD SUGAR UP TO TWICE DAILY 200 Strip 3 2 01/22/20 22 Discontinued([facility] prescription brought in as discontinued) Ocuvite Adult Formula Oral Capsule Take by mouth. 0 12/02/19 23 Discontinued glipiZIDE ER 5 MG Oral Tablet Extended Release 24 Hour (Glucotrol XL)Indications:Typ e 2 diabetes mellitus with hemoglobin A1c goal of less than 8.0% ([facility]) Take 1 Tablet by mouth in the morning. 100 Tablet 1 3 09/16/19 23 Discontinued Albuterol Sulfate HFA 108 (90 Base) MCG/ACT Inhalation Aerosol Solution INHALE TWO PUFFS BY MOUTH EVERY 4 HOURS NEEDED FOR COUGH, FOR SHORTNESS OF BREATH, OR WHEEZING 54 g 3 3 06/01/19 23 Discontinued([facility] prescription brought in as discontinued) Torsemide 10 MG Oral Tablet (Demadex)Indicatio ns:Hypertension with goal blood pressure less than 140/80,Localized edema TAKE ONE TABLET BY MOUTH EVERY DAY. TAKE ONE ADDITIONAL TABLET BY MOUTH IN THE AFTERNOON ON MONDAY, MONDAY, AND MONDAY 135 Tablet 1 3 06/02/19 23 Discontinued([facility] prescription brought in as discontinued) OneTouch Ultra 2 w/Device Kit Use to test blood sugar up to twice daily Dx E11.9 1 Kit 0 3 08/13/19 23 Discontinued Ipratropium-Albute rol 0.5-2.5 (3) MG/3ML Inhalation Solution (Duoneb) Inhale 3 mL by mouth every 6 hours as needed for Dyspnea. 1080 mL 5 3 07/27/19 23 Discontinued([facility] prescription brought in as discontinued) Arnuity Ellipta 200 MCG/ACT Inhalation Aerosol Powder Breath Activated (fluticasone Furoate)Indication s:COPD, group D, by GOLD 2017 classification ([facility]) Inhale 1 Puff by mouth in the morning. 30 Each 0 3 08/31/19 23 Discontinued(Re fill) documented as of this encounter (statuses as [...] Used Date Smoking Tobacco: Every Day Cigarettes 0.5 58 Smokeless Tobacco: Never Comments:03/30/22 currently smoking 10-15 cig/day Alcohol Use Standard Drinks/Week Comments Yes 0 [...] encounter Miscellaneous Notes * Telephone Encounter - Nilsa Sneha D, OMARI - 04/27/2023 3:53 PM EST Pt seen by DIPAK Gray on 08/30/22 and 02/22/23. Per Aminata's note, pt was to contact the office if her insurance was requiring a repeat sleep sutdy to switch DME companies. * Telephone Encounter - Sneha Saldana LPN - 07/28/2022 1:17 PM EDT Aminata's message was relayed to the pt, who verbalized understanding. She will be expecting a call to schedule titration study at [facility]. * Telephone Encounter - Aminata Quiroz CRNP - 07/28/2022 9:37 AM EDT Order placed for titration study, please fax to [facility]. They will call her toget scheduled. Changing medical supply companies will require an office visit, this can be done at the August appointment. She is currently scheduled to see me for both pulmonary and sleep, so I will handle both. Please let her know this. * Telephone Encounter - Manish Lawrence OSA - 07/26/2022 4:07 PM EDT Please advise * Telephone Encounter - Cha Mcclendon RN - 07/26/2022 3:41 PM EDT Pt also wasn't sure if she needs to go through pulmonary or sleep medicine re her CPAP, pt would like to switch to [facility] [place] CPAP. Pt has been dealing with another companyand they have sent her multiple masks that don't work and have charged her multiple times. She currently rents the cpap from "[employer]", not sure who needs to be aware of this. * Telephone Encounter - Cha Mcclendon RN - 07/26/2022 3:32 PM EDT Pt was seen for her annual wellness visit today and had many concerns. She would like to know when she should see pulmonology again. Pt states she spoke to someone in 05/12 re a [facility]. (something to do with needing oxygen with her CPAP) Can you please set up and schedule her an appointment with Paty, and whatever testing was recommended(please see tele enc from 05/12/22 pt would prefer [facility]. Pt did have an appointment in August but itwas canceled. Message sent Pulmonary Nurse and scheduling Pool. documented in this encounter Plan of Treatment Upcoming Encounters Date Type Department Care Team (Late st Contact Info) Description 05/02/2023 1:40 PM EST Office Visit Family [address] [place] [phone] Sandra Rasheed MD [address] [place] [address] [place] [address] 05/10/2023 11:30 AM EST Office Visit Ophthalmology, [facility] [address] [address] [address] Mulugeta Hodges DO [address] [place] [address] 06/02/2023 11:00 AM EDT Office Visit Sleep Disorders Ctr [facility] [address] [place] [phone] Aminata Quiroz CRNP [address] [place] [address] 07/27/2023 3:00 PM EDT Office Visit Cardiology, [facility] [address] [place] [address] Laquita Leija CRNP [address] [place] [address] 07/31/2023 1:30 PM EDT Nurse Only Ancillary [address] [place] [address] [place], Nurse [address] [place] [address] 09/06/2023 10:00 AM EDT Office [facility] [place] [phone] Aminata Quiroz CRNP [address] [place] [address] 09/08/2023 1:00 PM EDT Office Visit Gastroenterology [address] [place] [address] Jelly Mills CRNP [address] [place] [address] 02/28/2024 11:00 AM EST Imaging Radiology [address] [facility] [place] [address] Scheduled Orders Name Type Priority Associated Diagnoses Orde r Schedule SLEEP STUDY, W/ CPAP (TREATMENT SETTINGS) Procedures Routine OMARI (obstructive sleep apnea) Nocturnal hypoxemia Ordered: 07/28/2022 Scheduled Procedures Name Priority Associated Diagnoses Date/Ti me COLONOSCOPY FLEXIBLE PROXIMAL DIAGNOSTIC Recall History of colon polyps Health Maintenance Due Date Last Done Comments COVID-19 Vaccine (#1) 04/04/1946 Zoster Vaccines (1 of 2) 1996 *ADVANCE DIRECTIVE NOT ON FILE 09/01/2018 DISCUSS TOBACCO CESSATION (REFER TO SMARTSET #9405) 12/02/2021 12/02/2020 Influenza Vaccine (FLU shot) (#1) 2022 12/03/2013 Albumin/Creatinine Ratio 04/26/2023 023, 08/10/2020, 12/06/2019, Additional history exists Diabetic Foot Exam 04/26/2023 04/26/2022, 0 07/22/2021, 07/21/2020, Additional history exists HbA1c 04/29/2023 10/27/2022, 09/2022, 04/21/2021, Additional history exists DXA Scan 07/24/2023 07/23/2020, 07/20, 03/25/2013 Depression Screening 07/27/2023 07/26/2022 Diabetic Eye Exam 08/11/2023 08/10/2022, , 07/01/2021, Additional history exists GFR 10/09/2023 04/10/2023, 03/20, 02/03/2023, Additional history exists CKD PHOS USE SMARTSET 96972 03/27/202410/2023, 04/26/2022, 04/21/2021, Additional history exists CKD HGB USE SMARTSET 38881 04/10/202404/10, 04/04/2023, 03/27/2023, Additional history exists O2 [...] this encounter Medical Devices Implanted Type Area Construction Project Coordinator Device Identifier Shelf Expiration Date Model / Serial / Lot Gynecare Tvt Device Implanted:Qty: 1 on 06/18/2013 at OR [facility] N/A: Bladder 02/17/2016 [id number] / / [id number] documented as of this encounter Visit Diagnoses Diagnosis OMARI (obstructive sleep apnea)- Primary Obstructive sleep apnea (adult) (pediatric) Nocturnal hypoxemia Hypoxemia documented in this encounter Additional Health Concerns Infection Onset Date Last Indicated Resolved Time RSV 03/24/2023 03/24/2023 04/14/2023 12:1 9 AM EST documented as of this encounter Care Teams Formal Wear Rental Clerk Relationship Specialty Start Date End Date Sandra Rasheed MD [address] [place] [address] [place] [address] PCP - General Family Medicine 06/05/15 documented as of this encounter
--- OUTSIDE RECORDS SUMMARY | 2023-06-01 06:48 | External Medical Summary ---
Author Name Unknown Address Unknown Organization [id number]:[facility] [place] [address] [place] [address] Laboratory Report Ordering Provider Test Date Status LOUISE HEADLEY 05/02/2023 14:28:38 Final Observation Date Value Abnormality Reference (Units ) Status HbA1C 05/02/2023 14:28:38 6.8 Above high normal 4. 0-5.6 (%) Final The use of HbA1c to monitor glycemic status is based on normal hemoglobin and HbA composition. This test should not be used in patients with abnormal hemoglobin that affects the half life of the red blood cell or the in vivo glycation rates. Glucose, estimated average 05/02/2023 14:28:38 148 Above high normal <126 (mg/dL) Adi clay Performing Location [facility] [place] [address] [facility] [address]
--- OUTSIDE RECORDS SUMMARY | 2023-06-01 06:48 | External Medical Summary ---
Author Name Unknown Address Unknown Organization [id number]:[facility] [place] [address] [place] [address] Laboratory Report Ordering Provider Test Date Status ESPINOZA AUSTIN 05/02/2023 14:28:38 Final Observation Date Value Abnormality Reference (Units ) Status Vitamin B12 05/02/2023 14:28:38 [phone] (pg/mL) Final Performing Location LABORATORY [facility] - [address] [place] [address]
--- OUTSIDE RECORDS SUMMARY | 2023-06-01 06:48 | External Medical Summary ---
Author Name Unknown Address Unknown Organization [id number]:[facility] [place] [address] [place] [address] Laboratory Report Ordering Provider Test Date Status FANGLOUISE 05/02/2023 14:28:38 Final Observation Date Value Abnormality Reference (Units ) Status BUN 05/02/2023 14:28:38 16 6-20 (mg/dL) Final Creatinine 05/02/2023 14:28:38 1.2 Above high normal 0.5-1.0 (mg/dL) Final Glomerular filtration rate/1.73 sq M.predicted [Volume Rate/Area] in Serum, Plasma or Blood by Creatinine-based formula (CKD-EPI) 05/02/2023 14:28:38 46 Below low normal >=60 (mL/min) Final eGFR is calculated based on the CKD-EPI 2020 equation SODIUM 05/02/2023 14:28:38 139 135-146 (m mol/L) Final Potassium 05/02/2023 14:28:38 4.3 3.5-5.1 (m mol/L) Final Cl 05/02/2023 14:28:38 105 98-107 (mm ol/L) Final CO2 05/02/2023 14:28:38 24 22-32 (mmo l/L) Final Anion gap 05/02/2023 14:28:38 10 7-15 (mmol /L) Final Glucose 05/02/2023 14:28:38 152 Above high normal 70 -120 (mg/dL) Final Calcium 05/02/2023 14:28:38 8.9 8.4-10.2 ( mg/dL) Final Performing Location [facility] [place] - [address] [place] [address]
--- OUTSIDE RECORDS SUMMARY | 2023-06-01 06:48 | External Medical Summary | Summary of Care ---
Author Name Unknown Organization [facility] Address [address] [place] [address] Phone [phone] Care Team Providers Care Visiting Nurse Name Role Phone Sandra Rasheed MD Primary Care Provide r Reason for Visit * Reason Comments Outpatient Testing Encounter Details Date Type Department Care Team (Late st Contact Info) Description 05/02/2023 2:30 PM EST Laboratory Laboratory [address] [place] [phone] [place] [address] Diabetic peripheral neuropathy (HCC); Type 2 diabetes mellitus with stage 3b chronic kidney disease, without long-term current use of insulin (HCC); Type 2 diabetes mellitus with diabetic neuropathy, without long-term current use of insulin (HCC); Flank pain Allergies Active Allergy Reactions Criticality [...] tablets to use x 5 days at [place] [facility] 06-14-18 Take 1 Tab by mouth 3 times a day as needed for Dizziness. Indications: Given script for 8 tablets to use x 5 days at [place] [facility] 06-14-18 90 Tab 0 10/31/2018 Active [...] goal of less than 8.0% ([facility]) TAKE ONE TABLET BY MOUTH EVERY [...] 3 12/26/2022 4 Active OneTouch Delica Plus [id number] :Type 2 diabetes mellitus with hemoglobin A1c goal of less than 8.0% ([facility]) Use to test blood sugar up to twice daily. Dx E11.9 200 Each 3 01/11/2023 Active OneTouch Verio In Vitro Strip (Glucose Blood)Indications:Ty pe 2 diabetes mellitus with hemoglobin A1c goal of less than 8.0% ([facility]) USE TO TEST BLOOD SUGAR UP TO TWICE DAILY 200 Strip 2 02/22/2023 5 Active Nebulizer/Tubing/Sindy thpiece KitIndications:COPD, group D, by GOLD 2017 classification ([facility]) Replacement requested as hers isn't delivering [...] D, by GOLD 2017 classification ([facility]) 1 dose inhaled every evening. Rinse [...] nodule 08/14/2019 Coronary artery disease invo lving [place] coronary artery of [place] heart without angina pectoris 08/30/2018 Diabetes mellitus [...] 05/10/2023 11:30 AM EST Office Visit Ophthalmology, [facility] [address] [place] [address] Mulugeta Hodges DO [address] [place] [address] 06/02/2023 11:00 AM EDT Office Visit Sleep Disorders [facility]tr [facility] [address] [place] [phone] Aminata Quiroz CRNP [address] [place] [address] 07/27/2023 3:00 PM EDT Office Visit Cardiology, [facility] [address] [place] [address] Laquita Leija CRNP [address] [place] [address] 07/31/2023 1:30 PM EDT Nurse Only Ancillary [address] [place] [address] Hank, Nurse [address] [place] [address] 09/06/2023 10:00 AM EDT Office Visit Sleep Disorders Ctr [facility] [address] [place] [phone] Aminata Quiroz CRNP [address] [place] [address] 09/08/2023 1:00 PM EDT Office Visit Gastroenterology [address] [place] [address] Jelly Mills CRNP [address] [place] [address] 10/31/2023 3:00 PM EDT Office Visit Family Medicine [address] [place] [phone] Susy Ochoa PA-C [address] [place] [address] [place] [address] 02/28/2024 11:00 AM EST Imaging Radiology [address] [place] [address] 05/07/2024 4:00 PM EST Office Visit Family Medicine [address] [place] [phone] Sandra Rasheed MD [address] [place] [address] [place] [phone] Pending Results Name Type Priority Associated Diagnoses Date /Time VITAMIN B12 Lab Routine Diabetic peripheral neuropathy ([facility]) 05/02/2023 2:28 PM EST ALBUMIN / CREATININE RATIO, URINE Lab Routine Type 2 diabetes mellitus with stage 3b chronic kidney disease, without long-term current use of insulin ([facility]) 05/02/2023 2:28 PM EST HEMOGLOBIN A1C Lab Routine Type 2 diabetes mellitus with diabetic neuropathy, without long-term current use of insulin ([facility]) 05/02/2023 2:28 PM EST CBC WITH WBC DIFFERENTIAL Lab Routine Type 2 diabetes mellitus with stage 3b chronic kidney disease, without long-term current use of insulin ([facility]) 05/02/2023 2:28 PM EST BASIC METABOLIC PANEL Lab Routine Type 2 diabetes mellitus with stage 3b chronic kidney disease, without long-term current use of insulin ([facility]) 05/02/2023 2:28 PM EST URINALYSIS, REFLEX TO CULTURE (NOT FOR NEUTROPENIC PATIENTS) Lab Routine Flank pain 05/02/2023 2:28 PM EST CBC Lab Routine Type 2 diabetes mellitus with stage 3b chronic kidney disease, without long-term current use of insulin ([facility]) 05/02/2023 2:28 PM EST DIFFERENTIAL, AUTOMATED Lab Routine Type 2 diabetes mellitus with stage 3b chronic kidney disease, without long-term current use of insulin ([facility]) 05/02/2023 2:28 PM EST URINALYSIS, REFLEX TO CULTURE (CUP ONLY) Lab Routine Flank pain 05/02/2023 2:28 PM EST URINALYSIS, REFLEX TO CULTURE Lab Routine Flank pain 05/02/2023 2:28 PM EST Scheduled Procedures Name Priority Associated Diagnoses Date/Ti me COLONOSCOPY FLEXIBLE PROXIMAL DIAGNOSTIC Recall History of colon polyps Health Maintenance Due Date Last Done Comments COVID-19 Vaccine (#1) 04/04/1946 Zoster Vaccines (1 of 2) 1996 *ADVANCE DIRECTIVE NOT ON FILE 09/01/2018 DISCUSS TOBACCO CESSATION (REFER TO SMARTSET #4090) 12/02/2021 12/02/2020 Influenza Vaccine (FLU shot) (#1) 2022 12/03/2013 Albumin/Creatinine Ratio 04/26/2023 023, 08/10/2020, 12/06/2019, Additional history exists HbA1c 04/29/2023 10/27/2022, 02/0 09/2022, 04/21/2021, Additional history exists DXA Scan 07/24/2023 07/23/2020, 07/20, 03/25/2013 Depression Screening 07/27/2023 07/26/2022 Diabetic Eye Exam 08/11/2023 08/10/2022, , 07/01/2021, Additional history exists GFR 10/09/2023 04/10/2023, 03/20, 02/03/2023, Additional history exists CKD PHOS USE SMARTSET 13043 03/27/202410/2023, 04/26/2022, 04/21/2021, Additional history exists CKD HGB USE SMARTSET 08391 04/10/202404/10, 04/04/2023, 03/27/2023, Additional history exists O2 [...] this encounter Medical Devices Implanted Type Area Railway Signal Operator Device Identifier Shelf Expiration Date Model / Serial / Lot Gynecare Tvt Device Implanted:Qty: 1 on 06/18/2013 at OR [facility] N/A: Bladder 02/17/2016 [id number] / / [id number] documented as of this encounter Visit Diagnoses Diagnosis Diabetic peripheral neuropathy (HCC) Type II or unspecified type diabetes mellitus with neurological manifestations, not stated as uncontrolled Type 2 diabetes mellitus with stage 3b chronic kidney disease, without long-term current use of insulin (HCC) Type 2 diabetes mellitus with diabetic neuropathy, without long-term current use of insulin (HCC) Flank pain Abdominal pain, unspecified site documented in this encounter Care Teams Visiting Nurse Relationship Specialty Start Date End Date Sandra Rasheed MD [address] [place] [address] [place] [address] PCP - General Family Medicine 06/05/15 documented as of this encounter
--- OUTSIDE RECORDS SUMMARY | 2023-06-01 06:49 | External Medical Summary | Summary of Care ---
Author Name Unknown Organization [facility] Address [address] [place] [address] Phone [phone] Care Team Providers Care Breastfeeding Educator Name Role Phone Sandra Rasheed MD Primary Care Provide r Reason for Visit * Reason Onset Date Comments Test Results 05/12/2022 Noc ox Encounter Details Date Type Department Care Team (Late st Contact Info) Description 05/12/2022 Telephone Pulmonary Medicine, [facility] [address] [facility] [place] [address] Paty Sommers CRNP Test Results (Noc ox) Allergies Active Allergy Reactions Criticality Noted Date Comments Influenza Vaccines 01/06/2015 Had flu symptoms x 1 month after injection Iodinated Contrast Media High 09/01/2016 Hives 48 hours post cardiac cath. No respiratory symptoms Sulfa Antibiotics Unknown 02/22/2013 documented as of this encounter (statuses as of 04/17/2023) Medications Medication Sig Dispensed Refills Start Date End Date Status ASPIRIN 81 MG PO TABS Take by mouth at bedtime. 0 Active Cholecalciferol 1000 UNITS Capsule Take 1 Capsule by mouth at bedtime. 30 Cap 3 09/09/2016 Active meclizine (ANTIVERT) 25 MG TabletIndicatio ns:Given script for 8 tablets to use x 5 days at [place] [facility] 06-14-18 Take 1 Tab by mouth 3 times a day as needed for Dizziness. Indications: Given script for 8 tablets to use x 5 days at [facility] 06-14-18 90 Tab 0 10/31/2018 Active CPAP every night at bedtime. 0 Active Olopatadine HCl 0.2 % Ophthalmic Solution ([facility]) Instill 1 Drop into both eyes daily. 5 mL 12 08/06/2020 Active Vitamin C 1000 MG Oral Tablet Take 1 Tablet by mouth in the morning. 1 tab daily in the winter. 0 Active Calcium Carb-Cholecalci ferol 600-1000 MG-UNIT Oral Capsule Take by mouth . 1 daily 0 Active Ipratropium-Alb uterol 0.5-2.5 (3) MG/3ML Inhalation Solution (Duoneb) Inhale 3 mL by mouth every 6 hours as needed for Dyspnea. 1080 mL 5 05/27/2020 07/27/19 23 Discontinued(Ref ill) OneTouch Delica Plus [id number] tions:Type 2 diabetes mellitus with hemoglobin A1c goal of less than 8.0% ([facility]) Use to test blood sugar up to twice daily. Dx E11.9 200 Each 3 01/20/2021 01/12/20 23 Discontinued(Ref ill) Gabapentin 300 MG Oral Capsule (Neurontin) Take 1 Capsule by mouth at bedtime. Pt is taking three times a day 0 02/04/20 23 Discontinued Albuterol Sulfate HFA 108 (90 Base) MCG/ACT Inhalation Aerosol Solution INHALE TWO PUFFS BY MOUTH EVERY 4 HOURS NEEDED FOR COUGH, SHORTNESS OF BREATH, OR WHEEZING 54 g 3 06/28/2021 06/01/19 23 Discontinued Knee BraceIndication s:Acute pain of right knee R knee brace 1 Each 0 09/22/2021 07/27/19 23 Discontinued([facility] List Clean Up) Arnuity Ellipta 200 MCG/ACT Inhalation Aerosol Powder Breath Activated (fluticasone Furoate) Inhale 1 Puff by mouth in the morning. 0 07/27/19 23 Discontinued(Ref ill) Anoro Ellipta 62.5-25 MCG/INH Inhalation Aerosol Powder Breath Activated (umeclidinium-v ilanterol) Inhale 1 Puff by mouth every evening. 0 08/31/19 23 Discontinued(Ref ill) Metoprolol Tartrate 25 MG Oral Tablet (Lopressor) One half tablet by mouth two times per day 90 Tablet 3 11/16/2021 09/10/19 23 Discontinued Losartan Potassium 50 MG Oral Tablet (Cozaar)Indicat ions:Hypertensi on with goal blood pressure less than 140/80 TAKE ONE TABLET BY MOUTH EVERY DAY 90 Tablet 3 12/01/2021 12/02/19 22 Discontinued(Leg acy prescription brought in as discontinued) Torsemide 10 MG Oral Tablet (Demadex)Indica tions:Hypertens ion with goal blood pressure less than 140/80,Localize d edema TAKE ONE TABLET BY MOUTH EVERY DAY, TAKE 1 ADDITIONAL TABLET IN THE AFTERNOON ON MONDAY, MONDAY, AND MONDAY 135 Tablet 1 12/14/2021 06/02/19 23 Discontinued Spironolactone 25 MG Oral Tablet (Aldactone)Kelsy cations:Hyperte nsion goal BP (blood pressure) < 150/90,Localize d edema TAKE ONE TABLET BY MOUTH ON MONDAY, MONDAY AND MONDAY. TAKE ONE- HALF TABLET BY MOUTH ON ALL OTHER DAYS OF THE WEEK 64 Tablet 3 12/27/2021 12/28/19 22 Discontinued(Leg acy prescription brought in as discontinued) Omeprazole 20 MG Oral Capsule Delayed Release (PriLOSEC)Indic ations:Hyperten xavi goal BP (blood pressure) < 150/90 TAKE ONE CAPSULE BY MOUTH EVERY DAY ONE HOUR BEFORE THE FIRST MEAL OF THE DAY 90 Capsule 3 12/27/2021 12/28/19 22 Discontinued(Leg acy prescription brought in as discontinued) Atorvastatin Calcium 40 MG Oral Tablet (Lipitor)Indica tions:Dyslipide pauline, goal LDL below 130,Hypertensio n goal BP (blood pressure) < 150/90 TAKE ONE TABLET BY MOUTH EVERY DAY 90 Tablet 3 12/27/2021 12/28/19 22 Discontinued(Leg acy prescription brought in as discontinued) OneTouch Verio In Vitro Strip (Glucose Blood)Indicatio ns:Type 2 diabetes mellitus with hemoglobin A1c goal of less than 8.0% (HCC) USE TO TEST BLOOD SUGAR UP TO TWICE DAILY 200 Strip 3 01/21/2022 01/22/20 22 Discontinued(Leg acy prescription brought in as discontinued) Ocuvite Adult Formula Oral Capsule Take by mouth. 0 12/02/19 23 Discontinued glipiZIDE ER 5 MG Oral Tablet Extended Release 24 Hour (Glucotrol XL)Indications: Type 2 diabetes mellitus with hemoglobin A1c goal of less than 8.0% (HCC) Take 1 Tablet by mouth in the morning. 100 Tablet 1 04/26/2022 09/16/19 23 Discontinued documented as of this encounter (statuses as of 04/17/2023) Active Problems Problem Noted Date Diagnosed Date [...] nodule 08/14/2019 Coronary artery disease invo lving [place] coronary artery of [place] heart without angina pectoris 08/30/2018 Diabetes mellitus [...] as of this encounter (statuses as of 04/17/2023) Resolved Problems Problem Noted Date Diagnosed Date [...] as of this encounter (statuses as of 04/17/2023) Immunizations Name Administration Dates Next Due HEP [...] Used Date Smoking Tobacco: Every Day Cigarettes 1 58 Smokeless Tobacco: Never Comments:03/30/22 currently smoking [...] encounter Miscellaneous Notes * Telephone Encounter - Sneha Ash, OMARI - 04/17/2023 5:39 PM EST Pt seen by DIPAK Gray on 08/30/22. * Telephone Encounter - Mary Beth Mike LPN - 05/19/2022 10:14 AM EST Pt agreeable, scheduling reach out with soonest dates at both places * Telephone Encounter - Paty Sommers CRNP - 05/19/2022 10:03 AM EST Please contact patient and let her know my message I sent 05/12 * Telephone Encounter - Paty Sommers CRNP - 05/12/2022 1:03 PM EST NPO 04/14/2022 on CPAP (4-10 cmH2O): luis angel 78%, < 88% 74 minutes. documented in this encounter Plan of Treatment Upcoming Encounters Date Type Department Care Team (Late st Contact Info) Description 04/19/2023 11:10 AM EST Office Visit Family Medicine [address] [place] [phone] Patty Cardona DO [address] [place] [address] [place] [address] 05/02/2023 1:40 PM EST Office Visit Family Medicine [address] [place] [phone] Sandra Rasheed MD [address] [place] [address] [place] [address] 05/10/2023 11:30 AM EST Office Visit Ophthalmology, [facility] [address] [place] [address] Mulugeta Hodges DO [address] [place] [address] 06/02/2023 11:00 AM EDT Office Visit Sleep Disorders [facility] [address] [place] [phone] Aminata Quiroz CRNP [address] [place] [address] 07/27/2023 3:00 PM EDT Office Visit Cardiology, [facility] [address] [place] [address] Laquita Leija CRNP [address] [place] [address] 07/31/2023 1:30 PM EDT Nurse Only Ancillary [address] [place] [address] Jonaey, Nurse [address] [place] [address] 09/06/2023 10:00 AM EDT Office Visit Sleep Disorders Ctr [facility] 132 [facility] [place] [phone] Aminata Quiroz CRNP [address] [place] [address] 09/08/2023 1:00 PM EDT Office Visit Gastroenterology [address] [place] [address] Jelly Mills CRNP [address] [place] [address] 02/28/2024 11:00 AM EST Imaging Radiology [address] [place] [address] Scheduled Procedures Name Priority Associated Diagnoses Date/Ti me COLONOSCOPY FLEXIBLE PROXIMAL DIAGNOSTIC Recall History of colon polyps Health Maintenance Due Date Last Done Comments COVID-19 Vaccine (#1) 04/04/1946 Zoster Vaccines (1 of 2) 1996 *ADVANCE DIRECTIVE NOT ON FILE 09/01/2018 DISCUSS TOBACCO CESSATION (REFER TO SMARTSET #7370) 12/02/2021 12/02/2020 Influenza Vaccine (FLU shot) (#1) 2022 12/03/2013 Albumin/Creatinine Ratio 04/26/2023 023, 08/10/2020, 12/06/2019, Additional history exists Diabetic Foot Exam 04/26/2023 04/26/2022, 0 07/22/2021, 07/21/2020, Additional history exists HbA1c 04/29/2023 10/27/2022, 020 09/2022, 04/21/2021, Additional history exists DXA Scan 07/24/2023 07/23/2020, 07/20, 03/25/2013 Depression Screening 07/27/2023 07/26/2022 Diabetic Eye Exam 08/11/2023 08/10/2022, , 06/23/2021, Additional history exists GFR 10/09/2023 04/10/2023, 03/20, 02/03/2023, Additional history exists O2 ASSESSMENT COMPLETED IN PAST YEAR FOR COPD 03/24/2024 03/24/2023 CKD PHOS USE SMARTSET 61163 03/27/202410/2023, 04/26/2022, 04/21/2021, Additional history exists CKD HGB USE SMARTSET 71754 04/10/202404/10, 04/04/2023, 03/27/2023, Additional history exists COLONOSCOPY-EVERY 3 YRS AGES 18-100 07/13/2025 07/13/2022, 02/27/2020, 02/27/2020, Additional history exists DTaP,Tdap,and Td Vaccines (3 [...] this encounter Medical Devices Implanted Type Area Picture Framer Device Identifier Shelf Expiration Date Model / Serial / Lot Gynecare Tvt Device Implanted:Qty: 1 on 06/18/2013 at OR [facility] N/A: Bladder 02/17/2016 [id number] / / [id number] documented as of this encounter Additional Health Concerns Infection Onset Date Last Indicated Resolved Time RSV 03/24/2023 03/24/2023 04/14/2023 12:1 9 AM EST documented as of this encounter Care Teams Breastfeeding Educator Relationship Specialty Start Date End Date Sandra Rasheed MD [address] [place] [address] [place] [phone] PCP - General Family Medicine 06/05/15 documented as of this encounter
--- OUTSIDE RECORDS SUMMARY | 2023-06-01 06:49 | External Medical Summary | Summary of Care ---
Author Name Unknown Organization [facility] Address [address] [place] [address] Phone [phone] Care Team Providers Care Computer Assembler Name Role Phone Sandra Rasheed MD Primary Care Provide r Encounter Details Date Type Department Care Team (Late st Contact Info) Description 03/29/2023 Orders Only Family Medicine [address] [phone] Sandra Rasheed MD [address] [place] [address] [place] [address] Allergies Active Allergy Reactions Criticality Noted Date Comments Influenza Vaccines 01/06/2015 Had flu symptoms x 1 month after injection Iodinated Contrast Media High 09/01/2016 Hives 48 hours post cardiac cath. No respiratory symptoms Sulfa Antibiotics Unknown 02/22/2013 documented as of this encounter (statuses as of 03/29/2023) Medications Medication Sig Dispensed Refills Start Date End Date Status ASPIRIN 81 MG PO TABS Take by mouth at bedtime. 0 Active Cholecalciferol 1000 UNITS Capsule Take 1 Capsule by mouth at bedtime. 30 Cap 3 09/09/2016 Active meclizine (ANTIVERT) 25 MG TabletIndications:Gi daren script for 8 tablets to use x 5 days at [facility] 06-14-18 Take 1 Tab by mouth 3 times a day as needed for Dizziness. Indications: Given script for 8 tablets to use x 5 days at [facility] 06-14-18 90 Tab 0 10/31/2018 Active [...] goal of less than 8.0% ([facility]) TAKE ONE TABLET BY MOUTH EVERY MORNING 100 Tablet 1 09/15/2022 4 Active Metoprolol Tartrate 25 MG Oral Tablet (Lopressor)Indicatio ns:Hypertensive kidney disease with stage 3b chronic kidney disease ([facility]),Hypertension with goal blood pressure less than 140/80 [...] 3 12/26/2022 4 Active OneTouch Delica Plus [id number] :Type 2 diabetes mellitus with hemoglobin A1c goal of less than 8.0% ([facility]) Use to test blood sugar up to twice daily. Dx E11.9 200 Each 3 01/11/2023 Active OneTouch Verio In Vitro Strip (Glucose Blood)Indications:Ty pe 2 diabetes mellitus with hemoglobin A1c goal of less than 8.0% ([facility]) USE TO TEST BLOOD SUGAR UP TO TWICE DAILY 200 Strip 2 02/22/2023 5 Active Nebulizer/Tubing/Sindy thpiece KitIndications:COPD, group D, by GOLD 2017 classification ([facility]) Replacement requested as hers isn't [...] COPD, group D, by GOLD 2017 classification ([facility]) 1 dose inhaled every evening. Rinse mouth after use. 90 Each 3 02/22/2023 Active Dicyclomine HCl 10 MG Oral Capsule (Bentyl) Take 1 Capsule by mouth 2 times a day as needed for Cramping. 60 Capsule 1 03/24/2023 Active predniSONE 10 MG Oral Tablet (Deltasone)Indicatio ns:COPD, group D, by GOLD 2017 classification ([facility]) 4 tabs for 2 days, 3 tabs for 2 days, 2 tabs for 2 days 1 tab for 2 days with food 30 Tablet 0 03/24/2023 Active Azithromycin 250 MG Oral Tablet (Zithromax Z-Bob)Indications:CO PD, group D, by GOLD 2017 classification ([facility]) Take two tablets by mouth on first day, then 1 tablet daily until gone 6 Tablet 0 03/24/2023 Active documented as of this encounter (statuses as of 03/29/2023) Active Problems Problem Noted Date Diagnosed Date [...] as of this encounter (statuses as of 03/29/2023) Resolved Problems Problem Noted Date Diagnosed Date [...] as of this encounter (statuses as of 03/29/2023) Immunizations Name Administration Dates Next Due HEP [...] 3:22 PM EDT Sexual Orientation Straight 07/21/2020 3 :22 PM EDT Job Start Date Occupation Industry Not on file Not on file Not on file documented as of this encounter Plan of Treatment Upcoming Encounters Date Type Department Care Team (Late st Contact Info) Description 05/02/2023 1:40 PM EST Office Visit Family Medicine [address] [place] [phone] Sandra Rasheed MD [address] [place] [address] [place] [address] 05/10/2023 11:30 AM EST Office Visit Ophthalmology, [facility] [address] [place] [address] Mulugeta Hodges DO [address] [place] [address] 06/02/2023 11:00 AM EDT Office Visit Sleep Disorders Ctr [facility] [address] [place] [phone] Aminata Quiroz CRNP [address] [place] [address] 07/27/2023 3:00 PM EDT Office Visit Cardiology, [facility] [address] [place] [address] Laquita Leija CRNP [address] [place] [address] 07/31/2023 1:30 PM EDT Nurse Only Ancillary [address] [place] [address] [place], Nurse [address] [place] [address] 09/06/2023 10:00 AM EDT Office Visit Sleep Disorders Ctr [facility] [address] [place] [phone] Aminata Quiroz CRNP [address] [place] [address] 09/08/2023 1:00 PM EDT Office Visit Gastroenterology [address] [place] [address] Jelly Mills CRNP [address] [place] [address] 02/28/2024 11:00 AM EST Imaging Radiology [facility] [address] [place] [address] Scheduled Procedures Name Priority Associated Diagnoses Date/Ti [...] 04/26/2023 023, 08/10/2020, 12/06/2019, Additional history exists CKD PHOS USE SMARTSET 53704 04/26/2023 01/0 10/2023, 04/26/2022, 04/21/2021, Additional history exists Diabetic Foot Exam 04/26/2023 04/26/2022, 0 07/22/2021, 07/21/2020, Additional history exists HbA1c 04/29/2023 10/27/2022, 020 09/2022, 04/21/2021, Additional history exists DXA Scan 07/24/2023 07/23/2020, 07/20, 03/25/2013 Depression Screening 07/27/2023 07/26/2022 GFR 08/04/2023 02/03/2023, 08, 04/26/2022, Additional history exists Diabetic Eye Exam 08/11/2023 08/10/2022, , 06/23/2021, Additional history exists CKD HGB USE SMARTSET 71376 02/04/202403/27, 02/03/2023, 02/03/2023, Additional history exists O2 ASSESSMENT COMPLETED IN PAST YEAR FOR COPD 03/24/2024 03/24/2023 COLONOSCOPY-EVERY 3 YRS AGES 18-100 07/13/2025 07/13/2022, [...] this encounter Medical Devices Implanted Type Area Packing Machine Operator Device Identifier Shelf Expiration Date Model / Serial / Lot Gynecare Tvt Device Implanted:Qty: 1 on 06/18/2013 at OR [facility] N/A: Bladder 02/17/2016 [id number] / / [id number] documented as of this encounter Procedures Procedure Name Priority Date/Time Associated Diagnosis Comments CHEMISTRY-OUTSIDE Routine 03/27/2023 documented in this encounter Results * CHEMISTRY-OUTSIDE (03/27/2023) Not all results display below - see scan for full detail OUTSIDE LAB (SEE SCANNED REPORT) Comment:ED LABS - LACTIC ACI D, CBCD, PTINR, MAG, PHOS, BNP, TROP CREATININE-OUTSID E LAB OUTSIDE LAB (SEE SCANNED REPORT) EGFR-OUTSIDE LAB OUT SIDE LAB (SEE SCANNED REPORT) POTASSIUM-OUTSIDE LAB OUTSIDE LAB (SEE SCANNED REPORT) GLUCOSE-OUTSIDE LAB OUTSIDE LAB (SEE SCANNED REPORT) HOURS FASTING OUTSID E LAB (SEE SCANNED REPORT) TRIGLYCERIDES-OUT SIDE LAB OUTSIDE LAB (SEE SCANNED REPORT) CHOLESTEROL-OUTSI DE LAB OUTSIDE LAB (SEE SCANNED REPORT) HDL-OUTSIDE LAB OUTS PHAN LAB (SEE SCANNED REPORT) CHOL/HDL RATIO-OUTSIDE LAB OUTSIDE LA B (SEE SCANNED REPORT) LDL (CALCULATED)-OUTS PHAN LAB OUTSIDE LAB (SEE SCANNED REPORT) LDL (DIRECT MEASURE)-OUTSIDE LAB OUTSIDE LAB (SEE SCANNED REPORT) HEMOGLOBIN, [id number] LAB OUTSIDE LAB (SEE SCANNED REPORT) PHOSPHORUS-OUTSID E LAB 2.9 2.5 - 4.9 MG/DL OUTSIDE LAB (SEE SCANNED REPORT) PTH-OUTSIDE LAB OUTS PHAN LAB (SEE SCANNED REPORT) MICROALBUMIN RATIO-OUTSIDE LAB OUTSIDE LA B (SEE SCANNED REPORT) PROTEIN, UA-OUTSIDE LAB OUTSIDE LAB (SEE SCANNED REPORT) HEMOGLOBIN-OUTSID E LAB 13.5 12.0 - 16.0 G/DL OUTSIDE LAB (SEE SCANNED REPORT) 03/27/2023 History Per Patient LABORATORY OUTSIDE LAB (SEE SCANNED REPORT) documented in this encounter Additional Health Concerns Infection Onset Date Last Indicated Resolved Time RSV 03/24/2023 03/24/2023 documented as of this encounter Care Teams Computer Assembler Relationship Specialty Start Date End Date Sandra Rasheed MD [address] [place] [address] [place] [phone] PCP - General Family Medicine 06/05/15 documented as of this encounter
--- OUTSIDE RECORDS SUMMARY | 2023-06-01 06:49 | External Medical Summary | Summary of Care ---
Author Name Unknown Organization [facility] Address [address] [place] [address] Phone [phone] Care Team Providers Care Scada Operator Name Role Phone Sandra Rasheed MD Primary Care Provide r Reason for Visit * Reason Onset Date Comments Advice 04/05/2023 Encounter Details Date Type Department Care Team (Late st Contact Info) Description 04/05/2023 Telephone Ancillary [address] [place] [address] Sandra Rasheed MD [address] [place] [address] [place] [address] Advice Allergies Active Allergy Reactions Criticality Noted Date Comments Influenza Vaccines 01/06/2015 Had flu symptoms x 1 month after injection Iodinated Contrast Media High 09/01/2016 Hives 48 hours post cardiac cath. No respiratory symptoms Sulfa Antibiotics Unknown 02/22/2013 documented as of this encounter (statuses as of 04/06/2023) Medications Medication Sig Dispensed Refills Start Date End Date Status ASPIRIN 81 MG PO TABS Take by mouth at bedtime. 0 Active Cholecalciferol 1000 UNITS Capsule Take 1 Capsule by mouth at bedtime. 30 Cap 3 09/09/2016 Active meclizine (ANTIVERT) 25 MG TabletIndications:Gi daren script for 8 tablets to use x 5 days at [facility] 06-14-18 Take 1 Tab by mouth 3 times a day as needed for Dizziness. Indications: Given script for 8 tablets to use x 5 days at [facility] 06-14-18 90 Tab 0 10/31/2018 Active [...] goal of less than 8.0% ([facility]) TAKE ONE TABLET BY MOUTH EVERY [...] 3 12/26/2022 4 Active OneTouch Delica Plus [id number] :Type 2 diabetes mellitus with hemoglobin A1c goal of less than 8.0% ([facility]) Use to test blood sugar up to twice daily. Dx E11.9 200 Each 3 01/11/2023 Active OneTouch Verio In Vitro Strip (Glucose Blood)Indications:Ty pe 2 diabetes mellitus with hemoglobin A1c goal of less than 8.0% ([facility]) USE TO TEST BLOOD SUGAR UP TO TWICE DAILY 200 Strip 2 02/22/2023 5 Active Nebulizer/Tubing/Sindy thpiece KitIndications:COPD, group D, by GOLD 2017 classification ([facility]) Replacement requested as hers isn't [...] D, by GOLD 2017 classification ([facility]) 1 dose inhaled every evening. Rinse mouth after use. 90 Each 3 02/22/2023 Active Dicyclomine HCl 10 MG Oral Capsule (Bentyl) Take 1 Capsule by mouth 2 times a day as needed for Cramping. 60 Capsule 1 03/24/2023 Active predniSONE 10 MG Oral Tablet (Deltasone)Indicatio ns:COPD, group D, by GOLD 2017 classification ([facility]) 4 tabs for 2 days, 3 tabs [...] as of this encounter (statuses as of 04/06/2023) Active Problems Problem Noted Date Diagnosed Date [...] nodule 08/14/2019 Coronary artery disease invo lving [place] coronary artery of [place] heart without angina pectoris 08/30/2018 Diabetes mellitus [...] as of this encounter (statuses as of 04/06/2023) Resolved Problems Problem Noted Date Diagnosed Date [...] as of this encounter (statuses as of 04/06/2023) Immunizations Name Administration Dates Next Due HEP [...] Telephone Encounter - Cha Mcclendon RN - 04/06/2023 2:40 PM EST Sent myG * Telephone Encounter - Cha Mcclendon RN - 04/06/2023 2:37 PM EST Patient called back and states HH is going to come and do her labs on . * Telephone Encounter - Cha Mcclendon RN - 04/05/2023 10:32 AM EST Patient called states she can not make her hospital follow up appointment with Kathleen today. Offered other appts, but patient states she is unable to drive and her son is only available on Mon, [facility], [place] for 04/19 and patient to call if any concerns earlier. Patient states HH is coming in to the home and she will see if they can do her labs at home. Reason for Call: Advice Contact: Telephone Call Contact Type: Other: appt Outcome: see note Face to face time spent with Patient (minutes): 0 Total Time including non face to face (minutes): 10 documented in this encounter Plan of Treatment Upcoming Encounters Date Type Department Care Team (Late st Contact Info) Description 04/19/2023 11:10 AM EST Office Visit [address] [place] [phone] Patty Cardona [address] [place] [address] 05/02/2023 1:40 PM EST Office Visit [address] [place] [address] Sandra Rasheed MD [address] [place] [address] [place] [address] 05/10/2023 11:30 AM EST Office Visit Ophthalmology, [facility] [address] [place] [address] Mulugeta Hodges DO [address] [place] [address] 06/02/2023 11:00 AM EDT Office Visit Sleep Disorders Ctr [facility] [address] [place] [phone] Aminata Quiroz CRNP [address] [place] [address] 07/27/2023 3:00 PM EDT Office Visit Cardiology, [facility] [address] [place] [address] Laquita Leija CRNP [address] [place] [address] 07/31/2023 1:30 PM EDT Nurse Only Ancillary [address] [place] [address] [place], Nurse [address] [place] [address] 09/06/2023 10:00 AM EDT Office Visit Sleep Disorders Ctr [facility] [address] [place] [phone] Aminata Quiroz CRNP [address] [place] [address] 09/08/2023 1:00 PM EDT Office Visit Gastroenterology [address] [place] [address] Jelly Mills CRNP [address] [place] [address] 02/28/2024 11:00 AM EST Imaging Radiology [address] [place] [address] Scheduled Procedures Name Priority Associated Diagnoses Date/Ti [...] 08/10/2022, , 06/23/2021, Additional history exists GFR 10/03/2023 04/04/2023, 01/18, 10/27/2022, Additional history exists O2 ASSESSMENT COMPLETED IN PAST YEAR FOR COPD 03/24/2024 03/24/2023 CKD PHOS USE SMARTSET 77432 03/27/202410/2023, 04/26/2022, 04/21/2021, Additional history exists CKD HGB USE SMARTSET 34544 04/04/202404/04, 03/27/2023, 02/03/2023, Additional history exists COLONOSCOPY-EVERY 3 YRS AGES [...] this encounter Medical Devices Implanted Type Area Professional Sports Scout Device Identifier Shelf Expiration Date Model / Serial / Lot Gynecare Tvt Device Implanted:Qty: 1 on 06/18/2013 at OR [facility] N/A: Bladder 02/17/2016 [id number] / / [id number] documented as of this encounter Additional Health Concerns Infection Onset Date Last Indicated Resolved Time RSV 03/24/2023 03/24/2023 documented as of this encounter Care Teams Scada Operator Relationship Specialty Start Date End Date Sandra Rasheed MD [address] [place] [address] [place] [phone] PCP - General Family Medicine 06/05/15 documented as of this encounter
--- OUTSIDE RECORDS SUMMARY | 2023-06-01 06:49 | External Medical Summary | Summary of Care ---
Author Name Unknown Organization [facility] Address [address] [place] [address] Phone [phone] Care Team Providers Care Yard Driver Name Role Phone Sandra Rasheed MD Primary Care Provide r Reason for Visit * Reason Onset Date Comments Advice 04/05/2023 Encounter Details Date Type Department Care Team (Late st Contact Info) Description 04/05/2023 Telephone Ancillary [address] [place] [address] Sandra Rasheed MD [address] [place] [address] [place] [address] Advice Allergies Active Allergy Reactions Criticality Noted Date Comments Influenza Vaccines 01/06/2015 Had flu symptoms x 1 month after injection Iodinated Contrast Media High 09/01/2016 Hives 48 hours post cardiac cath. No respiratory symptoms Sulfa Antibiotics Unknown 02/22/2013 documented as of this encounter (statuses as of 04/05/2023) Medications Medication Sig Dispensed Refills Start Date End Date Status ASPIRIN 81 MG PO TABS Take by mouth at bedtime. 0 Active Cholecalciferol 1000 UNITS Capsule Take 1 Capsule by mouth at bedtime. 30 Cap 3 09/09/2016 Active meclizine (ANTIVERT) 25 MG TabletIndications:Gi daren script for 8 tablets to use x 5 days at [facility] 06-14-18 Take 1 Tab by mouth 3 times a day as needed for Dizziness. Indications: Given script for 8 tablets to use x 5 days at [facility] 06-14-18 90 Tab 0 10/31/2018 Active [...] goal of less than 8.0% ([facility]) TAKE ONE TABLET BY MOUTH EVERY [...] 3 12/26/2022 4 Active OneTouch Delica Plus [id number] :Type 2 diabetes mellitus with hemoglobin A1c goal of less than 8.0% ([facility]) Use to test blood sugar up to twice daily. Dx E11.9 200 Each 3 01/11/2023 Active OneTouch Verio In Vitro Strip (Glucose Blood)Indications:Ty pe 2 diabetes mellitus with hemoglobin A1c goal of less than 8.0% ([facility]) USE TO TEST BLOOD SUGAR UP TO TWICE DAILY 200 Strip 2 02/22/2023 5 Active Nebulizer/Tubing/Sindy thpiece KitIndications:COPD, group D, by GOLD 2017 classification ([facility]) Replacement requested as hers isn't delivering [...] D, by GOLD 2017 classification ([facility]) 1 dose inhaled every evening. Rinse mouth after use. 90 Each 3 02/22/2023 Active Dicyclomine HCl 10 MG Oral Capsule (Bentyl) Take 1 Capsule by mouth 2 times a day as needed for Cramping. 60 Capsule 1 03/24/2023 Active predniSONE 10 MG Oral Tablet (Deltasone)Indicatio ns:COPD, group D, by GOLD 2017 classification ([facility]) 4 tabs for 2 days, 3 [...] as of this encounter (statuses as of 04/05/2023) Active Problems Problem Noted Date Diagnosed Date [...] nodule 08/14/2019 Coronary artery disease invo lving [place] coronary artery of [place] heart without angina pectoris 08/30/2018 Diabetes mellitus [...] as of this encounter (statuses as of 04/05/2023) Resolved Problems Problem Noted Date Diagnosed Date [...] as of this encounter (statuses as of 04/05/2023) Immunizations Name Administration Dates Next Due HEP [...] and her son is only available on [facility] for 04/19 and patient to call if [...] 04/19/2023 11:10 AM EST Office Visit Family [address] [place] [phone] Patty Cardona, [address] [place] [address] 05/02/2023 1:40 PM EST Office Visit Family Medicine [address] [place] [phone] Sandra Rasheed MD [address] [place] [address] [place] [address] 05/10/2023 11:30 AM EST Office Visit Ophthalmology, [facility] [address] [place] [address] Mulugeta Hodges DO [address] [place] [address] 06/02/2023 11:00 AM EDT Office Visit Sleep Disorders Ctr [facility] [address] [facility] [place] [phone] Aminata Quiroz CRNP [address] [place] [address] 07/27/2023 3:00 PM EDT Office Visit Cardiology, [facility] [address] [place] [address] Laquita Leija CRNP [address] [place] [address] 07/31/2023 1:30 PM EDT Nurse Only Ancillary [address] [place] [address] [place], Nurse Annual [address] [place] [address] 09/06/2023 10:00 AM EDT Office Visit Sleep Disorders Ctr [facility] [address] [place] [phone] Aminata Quiroz CRNP [address] [place] [address] 09/08/2023 1:00 PM EDT Office Visit Gastroenterology [address] [place] [address] Jelly Mills CRNP [address] [place] [address] 02/28/2024 11:00 AM EST Imaging Radiology [address], [place] [address] [place] [address] Scheduled Procedures Name Priority Associated Diagnoses Date/Ti [...] 07/21/2020, Additional history exists HbA1c 04/29/2023 10/27/2022, 0209/2022, 04/21/2021, Additional history exists DXA Scan 07/24/2023 07/23/2020, 07/20, 03/25/2013 Depression Screening 07/27/2023 07/26/2022 GFR 08/04/2023 02/03/2023, 10/18, 04/26/2022, Additional history exists Diabetic Eye Exam 08/11/2023 08/10/2022, , 06/23/2021, Additional history exists O2 ASSESSMENT COMPLETED IN PAST YEAR FOR COPD 03/24/2024 03/24/2023 CKD HGB USE SMARTSET 93969 03/27/202403/27, 02/03/2023, 02/03/2023, Additional history exists CKD PHOS USE SMARTSET 59385 03/27/202410/2023, 04/26/2022, 04/21/2021, Additional history exists COLONOSCOPY-EVERY 3 YRS AGES [...] this encounter Medical Devices Implanted Type Area Reception Specialist Device Identifier Shelf Expiration Date Model / Serial / Lot Gynecare Tvt Device Implanted:Qty: 1 on 06/18/2013 at OR [facility] N/A: Bladder 02/17/2016 [id number] / / [id number] documented as of this encounter Additional Health Concerns Infection Onset Date Last Indicated Resolved Time RSV 03/24/2023 03/24/2023 documented as of this encounter Care Teams Yard Driver Relationship Specialty Start Date End Date Sandra Rasheed MD [address] [place] [address] [place] [phone] PCP - General Family Medicine 06/05/15 documented as of this encounter
--- OUTSIDE RECORDS SUMMARY | 2023-06-01 06:49 | External Medical Summary | Summary of Care ---
Author Name Unknown Organization [facility] Address [address] [place] [address] Phone [phone] Care Team Providers Care Supervisor Gluing Name Role Phone Sandra Rasheed MD Primary Care Provide r Encounter Details Date Type Department Care Team (Late st Contact Info) Description 04/11/2023 Orders Only Family Medicine [address] [phone] Sandra Rasheed MD [address] [place] [address] [place] [address] Allergies Active Allergy Reactions Criticality Noted Date Comments Influenza Vaccines 01/06/2015 Had flu symptoms x 1 month after injection Iodinated Contrast Media High 09/01/2016 Hives 48 hours post cardiac cath. No respiratory symptoms Sulfa Antibiotics Unknown 02/22/2013 documented as of this encounter (statuses as of 04/11/2023) Medications Medication Sig Dispensed Refills Start Date End Date Status ASPIRIN 81 MG PO TABS Take by mouth at bedtime. 0 Active Cholecalciferol 1000 UNITS Capsule Take 1 Capsule by mouth at bedtime. 30 Cap 3 09/09/2016 Active meclizine (ANTIVERT) 25 MG TabletIndications:Gi daern script for 8 tablets to use x 5 days at [facility] 06-14-18 Take 1 Tab by mouth 3 times a day as needed for Dizziness. Indications: Given script for 8 tablets to use x 5 days at [facility] 06-14-18 90 Tab 0 10/31/2018 Active [...] 8.0% ([facility]ER[facility]) TAKE ONE TABLET BY MOUTH EVERY MORNING 100 Tablet 1 09/15/2022 4 Active Metoprolol Tartrate 25 MG Oral Tablet (Lopressor)Indicatio ns:Hypertensive kidney disease with stage 3b chronic kidney disease ([facility]),Hypertension with goal blood pressure less than 140/80 [...] 3 12/26/2022 4 Active OneTouch Delica Plus [id number] :Type 2 diabetes mellitus with hemoglobin A1c [...] ns:COPD, group D, by GOLD 2017 classification ([facility]) 4 tabs for 2 days, 3 tabs [...] as of this encounter (statuses as of 04/11/2023) Active Problems Problem Noted Date Diagnosed Date [...] 08/14/2019 Coronary artery disease invo lving [place] coronary artery of [place] heart without angina pectoris 08/30/2018 Diabetes mellitus [...] as of this encounter (statuses as of 04/11/2023) Resolved Problems Problem Noted Date Diagnosed Date [...] as of this encounter (statuses as of 04/11/2023) Immunizations Name Administration Dates Next Due HEP [...] 04/19/2023 11:10 AM EST Office Visit Family [address] [phone] Patty Cardona [address] [place] [address] 05/02/2023 1:40 PM EST Office Visit Family Medicine [address] [phone] Sandra Rasheed MD [address] [place] [address] [place] [address] 05/10/2023 11:30 AM EST [facility] [place] [address] Mulugeta Hodges, DO [address] [place] [address] 06/02/2023 11:00 AM EDT Office Visit Sleep Disorders Ctr [facility] [address] [place] [phone] Aminata Quiroz CRNP [address] [place] [address] 07/27/2023 3:00 PM EDT Office Visit Cardiology, [facility] [address] [facility] [place] [address] Laquita Leija CRNP [address] [place] [address] 07/31/2023 1:30 PM EDT Nurse Only Ancillary [address] [place] [address] [place], Nurse [address] [place] [address] 09/06/2023 10:00 AM EDT Office Visit Sleep Disorders Ctr [facility] [address] [facility] [place] [address] Aminata Quiroz CRNP [address] [place] [address] 09/08/2023 1:00 PM EDT Office Visit Gastroenterology [address] [place] [address] Jelly Mills CRNP [address] [place] [address] 02/28/2024 11:00 AM EST Imaging Radiology [address] [place] [address] Scheduled Procedures Name Priority Associated Diagnoses Date/Ti [...] , 06/23/2021, Additional history exists GFR 10/03/2023 04/10/2023, 03/20, 02/03/2023, Additional history exists O2 ASSESSMENT COMPLETED IN PAST YEAR FOR COPD 03/24/2024 03/24/2023 CKD PHOS USE SMARTSET 95561 03/27/2024/0 10/2023, 04/26/2022, 04/21/2021, Additional history exists CKD HGB USE SMARTSET 45417 04/04/202404/10, 04/04/2023, 03/27/2023, Additional history exists COLONOSCOPY-EVERY 3 [...] this encounter Medical Devices Implanted Type Area Vacuum Evaporation Operator Device Identifier Shelf Expiration Date Model / Serial / Lot Gynecare Tvt Device Implanted:Qty: 1 on 06/18/2013 at OR [facility] N/A: Bladder 02/17/2016 [id number] / / [id number] documented as of this encounter Procedures Procedure Name Priority Date/Time Associated Diagnosis Comments CHEMISTRY-OUTSIDE Routine 04/10/2023 documented in this encounter Results * (ABNORMAL) CHEMISTRY-OUTSIDE (04/10/2023) Not all results display below - see scan for full detail OUTSIDE LAB (SEE SCANNED REPORT) Comment:SCAN INCL: CBCD, CMP CREATININE-OUTSID E LAB 1.30(A) 0.55 - 1.02 MG/DL OUTSIDE LAB (SEE SCANNED REPORT) EGFR-OUTSIDE LAB 43(A) >=60 ML/MIN OUTSIDE LAB (SEE SCANNED REPORT) POTASSIUM-OUTSIDE LAB 3.7 3.5 - 5.1 MMOL/L OUTSIDE LAB (SEE SCANNED REPORT) GLUCOSE-OUTSIDE LAB 200(A) 70 - 110 MG/DL OUTSIDE LAB (SEE [...] LAB OUTSIDE LAB (SEE SCANNED REPORT) HEMOGLOBIN, A6R-[id number] LAB OUTSIDE LAB (SEE SCANNED REPORT) PHOSPHORUS-OUTSID E LAB OUTSIDE LAB (SEE SCANNED REPORT) PTH-OUTSIDE LAB OUTS PHAN LAB (SEE SCANNED REPORT) MICROALBUMIN RATIO-OUTSIDE LAB OUTSIDE LA B (SEE SCANNED REPORT) PROTEIN, UA-OUTSIDE LAB OUTSIDE LAB (SEE SCANNED REPORT) HEMOGLOBIN-OUTSID E LAB 12.8 12.0 - 16.0 GM/DL OUTSIDE LAB (SEE SCANNED REPORT) 04/10/2023 Sandra Rasheed MD LABORATORY OUTSIDE LAB (SEE SCANNED REPORT) documented in this encounter Additional Health Concerns Infection Onset Date Last Indicated Resolved Time RSV 03/24/2023 03/24/2023 documented as of this encounter Care Teams Supervisor Gluing Relationship Specialty Start Date End Date Sandra Rasheed MD [address] [place] [address] [place] [phone] PCP - General Family Medicine 06/05/15 documented as of this encounter
--- OUTSIDE RECORDS SUMMARY | 2023-06-01 06:49 | External Medical Summary | Summary of Care ---
Author Name Unknown Organization [facility] Address [address] [place] [address] Phone [phone] Care Team Providers Care Allopathic Doctor Name Role Phone Sandra Rasheed MD Primary Care Provide r Reason for Visit * Reason Onset Date Comments Hospital Follow-Up Pt states fee ling "good, a little hoarse this morning"; d/c on O2: 1L at rest and 2L with activity, has not used O2 for 3 days, O2 Sat has been between 95-98%. Hospital Follow-Up 04/19/2023 Encounter Details Date Type Department Care Team (Late st Contact Info) Description 04/19/2023 11:10 AM EST Office Visit Family Medicine [address] [phone] [address] [place] [phone] Hospital discharge follow-up*; RSV (respiratory syncytial virus infection); COPD exacerbation (HCC); Acute respiratory failure with hypoxia (HCC); Hypokalemia; Diabetic peripheral neuropathy (HCC) Allergies Active Allergy Reactions Criticality Noted Date Comments Influenza Vaccines 01/06/2015 Had flu symptoms x 1 month after injection Iodinated Contrast Media High 09/01/2016 Hives 48 hours post cardiac cath. No respiratory symptoms Sulfa Antibiotics Unknown 02/22/2013 documented as of this encounter (statuses as of 04/19/2023) Medications Medication Sig Dispensed Refills Start Date End Date Status ASPIRIN 81 MG PO TABS Take by mouth at bedtime. 0 Active Cholecalciferol 1000 UNITS Capsule Take 1 Capsule by mouth at bedtime. 30 Cap 3 7 Active meclizine (ANTIVERT) 25 MG TabletIndications:Ami little script for 8 tablets to use x 5 days at [facility] 06-14-18 Take 1 Tab by mouth 3 times a day as needed for Dizziness. Indications: Given script for 8 tablets to use x 5 days at [facility] 06-14-18 90 Tab 0 9 Active [...] 54 g 3 3 05/31/19 24 Active Torsemide 10 MG Oral Tablet (Demadex)Indication s:Hypertension with goal blood pressure less than 140/80,Localized edema TAKE ONE TABLET BY MOUTH ONCE DAILY TAKE ONE ADDITIONAL TABLET BY MOUTH IN THE AFTERNOON ON MONDAY, MONDAY AND MONDAY 135 Tablet 1 3 09/27/19 24 Active Losartan Potassium 50 MG Oral [...] 3 12/26/19 24 Active OneTouch Delica Plus [id number] s:Type 2 diabetes mellitus with hemoglobin A1c goal of less than 8.0% ([facility]) Use to test blood sugar up to twice daily. Dx E11.9 200 Each 3 3 Active OneTouch Verio In Vitro Strip (Glucose Blood)Indications:T ype 2 diabetes mellitus with hemoglobin A1c goal of less than 8.0% ([facility]) USE TO TEST BLOOD SUGAR UP TO TWICE DAILY 200 Strip 2 3 03/29/19 25 Active Nebulizer/Tubing/Mo uthpiece KitIndications:COPD , group D, by GOLD 2017 classification ([facility]) Replacement requested as hers isn't [...] :COPD, group D, by GOLD 2017 classification ([facility]) 1 dose inhaled every evening. Rinse mouth after use. 90 Each 3 3 Active Dicyclomine HCl 10 MG Oral Capsule (Bentyl) Take 1 Capsule by mouth 2 times a day as needed for Cramping. 60 Capsule 1 4 Active predniSONE 10 MG Oral Tablet (Deltasone)Indicati ons:COPD, group D, by GOLD 2017 classification ([facility]) 4 tabs for 2 days, 3 tabs for 2 days, 2 tabs for 2 days 1 tab for 2 days with food 30 Tablet 0 4 04/19/19 24 Discontinued Azithromycin 250 MG Oral Tablet (Zithromax Z-Bob)Indications:C OPD, group D, by GOLD 2017 classification ([facility]) Take two tablets by mouth on first day, then 1 tablet daily until gone 6 Tablet 0 4 04/19/19 24 Discontinued documented as of this encounter (statuses as of 04/19/2023) Active Problems Problem Noted Date Diagnosed Date [...] as of this encounter (statuses as of 04/19/2023) Resolved Problems Problem Noted Date Diagnosed Date [...] as of this encounter (statuses as of 04/19/2023) Immunizations Name Administration Dates Next Due HEP [...] Sign Reading Time Taken Comments Blood Pressure 132/78 04/19/2023 11:09 AM EST Pulse 72 04/19/2023 11:09 AM EST Temperature 36 C (96.8 F) 04/19/2023 11:09 AM EST Respiratory Rate - - Oxygen Saturation 95% 04/19/2023 11:09 AM EST Inhaled Oxygen Concentration - - Weight 81.4 kg (179 lb 6.4 oz) 04/19/2023 11:09 AM EST Height - - Body Mass Index 32.29 02/22/2023 3:10 PM EST documented in this encounter Progress Notes * Dulce Patty Curtis, - 04/19/2023 11:23 AM EST SUBJECTIVE: Mildred Moser is a 77 year old female. Chief Complaint Patient presents with Hospital Follow-Up Pt states feeling "good, a little hoarse this morning"; d/c on O2: 1L at rest and 2L with activity,has not used O2 for 3 days, O2 Sat has been between 95-98%. Hospital Follow-Up Recent Admission: Patient was recently admitted to [facility]. The date of discharge was 04/04/23. Discharge report received and reviewed. Admitted with COPD exacerbation/hypoxic respiratory failure due to RSV. Also had mild hyponatremia. HPI: Mildred Moser presents today for HD follow up. She has little recollection of her flight to [place] or most of her hospitalization. She was on BIPAP for a portion of the hospitalization but was no intubated. She was discharged on oxygen, but pulse ox has been good since returning home. It is 95% today here on room air. Blood sugars were high in the hospital but are better controlled now that she's been home. She had follow up blood work on 04/10/23 which looked good. Breathing feels good. She has some tingling in her feet - neuropathy. She previous tried gabapentin but did not feel it was helpful. Legs/feet feel cold. Ankle/brachial index in 01/2021 was normal. She is a dedicated smoker. She is not interested in quitting but has cut back to less than 1 ppd. Patient Active Problem List Diagnosis Code Hypertension with goal blood pressure less than 140/80 I10 Advanced directives, counseling/discussion Z71.89 Central retinal vein occlusion H34.8192 Hypertensive retinopathy H35.039 Persistent insomnia G47.00 Tobacco use disorder F17.200 Family history of ischemic heart disease Z82.49 OMARI (obstructive sleep apnea) G47.33 COPD, group D, by GOLD 2017 classification ([facility]) J44.9 Allergy to iodinated contrast Z91.041 Type 2 diabetes mellitus with hemoglobin A1c goal of less than 8.0% ([facility]) E11.9 Gastric ulcer K25.9 MGUS (monoclonal gammopathy of unknown significance) D47.2 Centrilobular emphysema ([facility]) J43.2 Nocturnal hypoxemia G47.34 Diabetes mellitus type 2 with peripheral artery disease ([facility]) E11.51 Coronary artery disease involving [place] coronary artery of [place] heart without angina pectoris I25.10 Lung nodule R91.1 Gastro-esophageal reflux disease without esophagitis K21.9 Type 2 diabetes mellitus with stage 3b chronic kidney disease, without long-term current use of insulin ([facility]) E11.22, N18.32 Hypertensive kidney disease with stage 3b chronic kidney disease ([facility]) I12.9, N18.32 Pulmonary hypertension ([facility]) I27.20 Type 2 diabetes mellitus with diabetic cataract ([facility]) E11.36 Dyslipidemia, goal LDL below 70 E78.5 Constipation K59.00 Immunization not carried out because of patient decision Z28.20 Current Outpatient Medications Medication Sig Dispense Refill [...] at [facility] 06-14-18 90 Tab 0 CPAP every night at bedtime. Olopatadine HCl 0.2 % Ophthalmic Solution ([facility]) Instill 1 Drop into both eyes [...] the morning. 90Capsule 3 OneTouch Delica Plus Aypeaf62C Use to test blood sugar up to twice daily. Dx E11.9 200 Each 3 OneTouch Verio In Vitro Strip (Glucose Blood) USE TO TEST BLOOD SUGAR UP TO TWICE DAILY 200 Strip 2 Nebulizer/Tubing/Mouthpiece Kit Replacement requested as hers isn't delivering medicine well and isold. DME: [employer] 1 Kit 0 B Complex Oral Capsule [...] No current facility-administered medications for this visit. Current and discharge medications have been reconciled. Review of patient's allergies indicates: Allergen Reactions Iodinated Contrast Media Hives 48 hours post cardiac cath. No respiratory symptoms Influenza Vaccines Had flu symptoms x 1 month after injection Sulfa Antibiotics Unknown OBJECTIVE: BP 132/78 | Pulse 72 | Temp 36 C (96.8 F) | Wt 81.4 kg (179 lb 6.4 oz) | SpO2 95% | BMI 32.29 kg/m | BSA 1.89 m Review Of Systems: Skin: + bruising - improving Eyes: negative Ears/Nose/Throat: (+) phlegm Respiratory: see HPI Cardiovascular: negative Gastrointestinal: negative Genitourinary: negative Musculoskeletal: negative Neurologic: negative Psychiatric: negative Hematologic/Lymphatic/Immunologic: negative Endocrine: negative PHYSICAL EXAM: General: alert, healthy, no distress, well nourished, and well developed Neck: supple, no adenopathy, thyroid normal size, non-tender, without nodularity Heart: regular rate & rhythm and (+) murmur Lungs: chest symmetric with normal AP diameter, no chest deformities noted, normal respiratory rateand rhythm, lungs clear to auscultation, pulse ox is good Abdomen: abdomen soft and non-tender Extremities: no joint deformities, effusion, or inflammation, no edema Neuro Exam: alert & oriented x 3 with fluent speech, no focal motor/sensory deficits, gait normal ASSESSMENT/PLAN: Hospital discharge follow-up (Primary) - DISCH MED RECON CUR MED LIS RSV (respiratory syncytial virus infection) COPD exacerbation (HCC) - resolved, back to baseline. Continue inhalers. Acute respiratory failure with hypoxia (HCC) - resolved. Pulse ox is good. She would like to keep her oxygen on hand until she sees Dr. Rasheed back in 2 weeks to make sure her breathing is stable. Hypokalemia - resolved. Diabetic peripheral neuropathy (HCC) - VITAMIN B12; Future; Expected date: 05/03/2023 Follow Up: Return for as scheduled. | For: as scheduled I spent a total of 30-39 minutes (exact time 33 mins) minutes on the date of service in preparation, delivery, and documentation of the care provided to Mildred Moser excluding any time spent in performance of separately billed services. Patty Cardona DO documented in this encounter Plan of Treatment Upcoming Encounters Date Type Department Care Team (Late st Contact Info) Description 05/02/2023 1:40 PM EST Office Visit Family Medicine [address] [place] [phone] Sandra Rasheed MD [address] [place] [address] [place] [address] 05/10/2023 11:30 AM EST Office Visit Ophthalmology, [facility] [address] [place] [address] Mulugeta Hodges DO [address] [place] [address] 06/02/2023 11:00 AM EDT Office [facility] [place] [phone] Aminata Quiroz CRNP [address] [place] [address] 07/27/2023 3:00 PM EDT Office Visit Cardiology, [facility] [address] [place] [address] Laquita Leija CRNP [address] [place] [place] [address] 07/31/2023 1:30 PM EDT Nurse Only Ancillary [address] [place] [address] [place], Nurse [address] [place] [address] 09/06/2023 10:00 AM EDT Office Visit Sleep Disorders Ctr [facility] [address] [place] [phone] Aminata Quiroz CRNP [address] [place] [address] 09/08/2023 1:00 PM EDT Office Visit Gastroenterology [address] [place] [address] Jelly Mills CRNP [address] [place] [address] 02/28/2024 11:00 AM EST Imaging Radiology [address] [place] [address] Scheduled Orders Name Type Priority Associated Diagnoses Orde r Schedule VITAMIN B12 Lab Routine Diabetic peripheral neuropathy (HCC) Expected: 05/03/2023 (Approximate), Expires: 04/18/2024 Scheduled Procedures Name Priority Associated Diagnoses Date/Ti [...] Additional history exists CKD PHOS USE SMARTSET 71139 03/27/2024/0 10/2023, 04/26/2022, 04/21/2021, Additional history exists CKD HGB USE SMARTSET 88121 04/10/202404/10, 04/04/2023, 03/27/2023, Additional history exists O2 [...] this encounter Medical Devices Implanted Type Area Poolroom/Poolhall Manager Device Identifier Shelf Expiration Date Model / Serial / Lot Gynecare Tvt Device Implanted:Qty: 1 on 06/18/2013 at OR [facility] N/A: Bladder 02/17/2016 [id number] / / [id number] documented as of this encounter Visit Diagnoses Diagnosis Hospital discharge follow-up- Primary Other follow-up examination RSV (respiratory syncytial virus infection) Respiratory syncytial virus (RSV) COPD exacerbation (HCC) Obstructive chronic bronchitis with exacerbation Acute respiratory failure with hypoxia (HCC) Acute respiratory failure Hypokalemia Hypopotassemia Diabetic peripheral neuropathy (HCC) Type II or unspecified type diabetes mellitus with neurological manifestations, not stated as uncontrolled documented in this encounter Care Teams Allopathic Doctor Relationship Specialty Start Date End Date Sandra Rasheed MD [address] [place] [address] [place] [address] PCP - General Family Medicine 06/05/15 documented as of this encounter
--- OUTSIDE RECORDS SUMMARY | 2023-06-01 06:49 | External Medical Summary | Summary of Care ---
Author Name Unknown Organization [facility] Address [address] [place] [address] Phone [phone] Care Team Providers Care Therapeutic Support Staff Name Role Phone Sandra Rasheed MD Primary Care Provide r Encounter Details Date Type Department Care Team (Late st Contact Info) Description 03/29/2023 Orders Only Family Medicine [address] [address] Sandra Rasheed MD [address] [place] [address] [place] [address] Allergies Active Allergy Reactions Criticality Noted [...] tablets to use x 5 days at [facility] 06-14-18 Take 1 Tab by mouth 3 times a day as needed for Dizziness. Indications: Given script for 8 tablets to use x 5 days at [facility] 06-14-18 90 Tab 0 10/31/2018 Active [...] hemoglobin A1c goal of less than 8.0% ([facility]) TAKE ONE TABLET BY MOUTH EVERY MORNING 100 Tablet 1 09/15/2022 4 Active Metoprolol Tartrate 25 MG Oral Tablet (Lopressor)Indicatio ns:Hypertensive kidney disease with stage 3b chronic kidney disease ([facility]),Hypertension with goal blood pressure less [...] 3 12/26/2022 4 Active OneTouch Delica Plus Gykcav23ZRqjtucmvrbs :Type 2 diabetes mellitus with hemoglobin A1c goal of less than 8.0% ([facility]) Use to test blood sugar up to twice daily. Dx E11.9 200 Each 3 01/11/2023 Active OneTouch Verio In Vitro Strip (Glucose Blood)Indications:Ty pe 2 diabetes mellitus with hemoglobin A1c goal of less than 8.0% ([facility]) USE TO TEST BLOOD SUGAR UP TO TWICE DAILY 200 Strip 2 02/22/2023 5 Active Nebulizer/Tubing/Sindy thpiece KitIndications:COPD, group D, by GOLD 2017 classification ([facility]) Replacement requested as hers isn't [...] COPD, group D, by GOLD 2017 classification ([facility]) 1 dose inhaled every evening. Rinse mouth after use. 90 Each 3 02/22/2023 Active Dicyclomine HCl 10 MG Oral Capsule (Bentyl) Take 1 Capsule by mouth 2 times a day as needed for Cramping. 60 Capsule 1 03/24/2023 Active predniSONE 10 MG Oral Tablet (Deltasone)Indicatio ns:COPD, group D, by GOLD 2017 classification ([facility]) 4 tabs for 2 days, [...] nodule 08/14/2019 Coronary artery disease invo lving [place] coronary artery of [place] heart without angina pectoris 08/30/2018 Diabetes mellitus [...] 1:40 PM EST Office Visit Family Medicine [address] [place] [phone] Sandra Rasheed MD [address] [place] [address] [place] [address] 05/10/2023 11:30 AM EST Office Visit Ophthalmology, [facility] [address] [place] [address] Mulugeta Hodges DO [address] [place] [address] 06/02/2023 11:00 AM EDT Office Visit Sleep Disorders Ctr [facility] [address] [place] [phone] Aminata Quiroz CRNP [address] [place] [address] 07/27/2023 3:00 PM EDT Office Visit Cardiology, [facility] [address] [place] [address] Laquita Leija CRNP [address] [place] [address] 07/31/2023 1:30 PM EDT Nurse Only Ancillary [address] [place] [address] [place], Nurse [address] [place] [address] 09/06/2023 10:00 AM EDT Office Visit Sleep Disorders Ctr [facility] [address] [place] [phone] Aminata Quiroz CRNP [address] [place] [address] 09/08/2023 1:00 PM EDT Office Visit Gastroenterology [address] [place] [address] Jelly Mills CRNP [address] [place] [address] 02/28/2024 11:00 AM EST Imaging Radiology [facility] [address] [place] [address] Scheduled Procedures Name Priority Associated Diagnoses Date/Ti [...] COPD 03/24/2024 03/24/2023 CKD HGB USE SMARTSET 80959 03/27/202403/27, 02/03/2023, 02/03/2023, Additional history exists CKD PHOS USE SMARTSET 77858 03/27/202410/2023, 04/26/2022, 04/21/2021, Additional history exists COLONOSCOPY-EVERY [...] encounter Medical Devices Implanted Type Area Commercial Plumber Device Identifier Shelf Expiration Date Model / Serial / Lot Gynecare Tvt Device Implanted:Qty: 1 on 06/18/2013 at OR [facility] N/A: Bladder 02/17/2016 [id number] / / [id number] documented as of this encounter Procedures Procedure Name Priority Date/Time Associated Diagnosis Comments XR CHEST 1 VIEW Routine 03/28/2023 XR CHEST 1 VIEW Routine 03/27/2023 documented in this encounter Results * XR CHEST 1 VIEW (03/28/2023) Anatomical Region Laterality Modality Chest Other 03/28/2023 History Per Patient RADIOLOGY (RAD GENER AL) * XR CHEST 1 VIEW (03/27/2023) Anatomical Region Laterality Modality Chest Other 03/27/2023 History Per Patient RADIOLOGY ([facility] GENER [facility]) documented in this encounter Additional Health Concerns Infection Onset Date Last Indicated Resolved Time RSV 03/24/2023 03/24/2023 documented as of this encounter Care Teams Therapeutic Support Staff Relationship Specialty Start Date End Date Sandra Rasheed MD [address] [place] [address] [place] [address] PCP - General Family Medicine 06/05/15 documented as of this encounter
--- OUTSIDE RECORDS SUMMARY | 2023-06-01 06:49 | External Medical Summary | Summary of Care ---
Author Name Unknown Organization [facility] Address [address] [place] [address] Phone [phone] Care Team Providers Care Staff Writer Name Role Phone Sandra Rasheed MD Primary Care Provide r Reason for Visit * Reason Onset Date Comments Follow Up 04/04/2023 Encounter Details Date Type Department Care Team (Late st Contact Info) Description 04/04/2023 Telephone Ancillary [address] [place] [address] Sandra Rasheed MD [address] [place] [address] [place] [address] Follow Up Allergies Active Allergy Reactions Criticality Noted Date Comments Influenza Vaccines 01/06/2015 Had flu symptoms x 1 month after injection Iodinated Contrast Media High 09/01/2016 Hives 48 hours post cardiac cath. No respiratory symptoms Sulfa Antibiotics Unknown 02/22/2013 documented as of this encounter (statuses as of 04/04/2023) Medications Medication Sig Dispensed Refills Start Date End Date Status ASPIRIN 81 MG PO TABS Take by mouth at bedtime. 0 Active Cholecalciferol 1000 UNITS Capsule Take 1 Capsule by mouth at bedtime. 30 Cap 3 09/09/2016 Active meclizine (ANTIVERT) 25 MG TabletIndications:Gi daren script for 8 tablets to use x 5 days at [place] [facility] 06-14-18 Take 1 Tab by mouth 3 times a day as needed for Dizziness. Indications: Given script for 8 tablets to use x 5 days at [place] [facility] 06-14-18 90 Tab 0 10/31/2018 Active [...] 3 12/26/2022 4 Active OneTouch Delica Plus [id number] :Type 2 diabetes mellitus with hemoglobin A1c [...] KitIndications:COPD, group D, by GOLD 2017 classification ([place] [...] COPD, group D, by GOLD 2017 classification ([place] [...] ns:COPD, group D, by GOLD 2017 classification ([facility]) 4 tabs for 2 days, 3 tabs [...] as of this encounter (statuses as of 04/04/2023) Active Problems Problem Noted Date Diagnosed Date [...] nodule 08/14/2019 Coronary artery disease invo lving [place] coronary artery of [place] heart without angina pectoris 08/30/2018 Diabetes mellitus [...] as of this encounter (statuses as of 04/04/2023) Resolved Problems Problem Noted Date Diagnosed Date [...] as of this encounter (statuses as of 04/04/2023) Immunizations Name Administration Dates Next Due HEP [...] Telephone Encounter - Cha Mcclendon RN - 04/04/2023 10:18 AM EST Patient calling just to update us, patient is doing better she will most likely be discharge from [place] today or tomorrow. She will be going home on oxygen and they will have HH come in. Patient does sound much better on the phone today. Patient was hospitalized with RSV and lifeflighted to [place]. Patient to call me if when she gets discharge they don't get her a hospital follow up with Sandra Rasheed MD Fyi, Message sent to Sandra Rasheed MD Reason for Call: No chief complaint on file. Contact: Telephone Call Contact Type: Follow-up Outcome: see note Face to face time spent with Patient (minutes): 0 Total Time including non face to face (minutes): 10 documented in this encounter Plan of Treatment Upcoming Encounters Date Type Department Care Team ([facility] st Contact Info) Description 05/02/2023 1:40 PM EST Office Visit Family Medicine [address] [place] [phone] Sandra Rasheed MD [address] [place] [address] [place] [address] 05/10/2023 11:30 AM EST Office Visit Ophthalmology, [facility] [address] [place] [address] Mulugeta Hodges, DO [address] [place] [address] 06/02/2023 11:00 AM EDT Office Visit Sleep Disorders Ctr [facility] [address] [place] [phone] Aminata Quiroz CRNP [address] [place] [address] 07/27/2023 3:00 PM EDT Office Visit Cardiology, [facility] [address] [place] [address] Laquita Leija CRNP [address] [place] [address] 07/31/2023 1:30 PM EDT Nurse Only Ancillary [address] [place] [address] [place], Nurse Annual [address] [place] [address] 09/06/2023 10:00 AM EDT Office Visit Sleep Disorders Ctr [facility] [address] [place] [phone] Aminata Quiroz CRNP [address] [place] [address] 09/08/2023 1:00 PM EDT Office Visit Gastroenterology [address] [place] [address] Jelly Mills CRNP [address] [place] [address] 02/28/2024 11:00 AM EST Imaging Radiology [address] [place] [address] Scheduled Procedures Name Priority Associated Diagnoses Date/Ti [...] COPD 03/24/2024 03/24/2023 CKD HGB USE SMARTSET 91218 03/27/202403/27, 02/03/2023, 02/03/2023, Additional history exists CKD PHOS USE SMARTSET 47009 03/27/202410/2023, 04/26/2022, 04/21/2021, Additional history exists COLONOSCOPY-EVERY [...] this encounter Medical Devices Implanted Type Area Generator Man Device Identifier Shelf Expiration Date Model / Serial / Lot Gynecare Tvt Device Implanted:Qty: 1 on 06/18/2013 at OR [facility] N/A: Bladder 02/17/2016 [id number] / / [id number] documented as of this encounter Additional Health Concerns Infection Onset Date Last Indicated Resolved Time RSV 03/24/2023 03/24/2023 documented as of this encounter Care Teams Staff Writer Relationship Specialty Start Date End Date Sandra Rasheed MD [address] [place] [address] [place] [address] PCP - General Family Medicine 06/05/15 documented as of this encounter
--- OUTSIDE RECORDS SUMMARY | 2023-06-01 06:49 | External Medical Summary | Summary of Care ---
Author Name Unknown Organization [facility] Address [address] [place] [address] Phone [phone] Care Team Providers Care Physician Representative Name Role Phone Sandra Rasheed MD Primary Care Provide r Encounter Details Date Type Department Care Team (Late st Contact Info) Description 03/29/2023 Orders Only Family Medicine [address] [phone] Sandra Rasheed MD [address] [place] [address] [place] [address] Allergies Active Allergy Reactions Criticality Noted [...] tablets to use x 5 days at [place] [facility] 06-14-18 Take 1 Tab by mouth 3 times a day as needed for Dizziness. Indications: Given script for 8 tablets to use x 5 days at [place] [facility] 06-14-18 90 Tab 0 10/31/2018 Active [...] than 8.0% ([facility]) TAKE ONE TABLET BY MOUTH EVERY MORNING 100 Tablet 1 09/15/2022 4 Active Metoprolol Tartrate 25 MG Oral Tablet (Lopressor)Indicatio ns:Hypertensive kidney disease with stage 3b chronic kidney disease ([facility]),Hypertension with goal blood pressure less than 140/80 [...] 3 12/26/2022 4 Active OneTouch Delica Plus [id number] :Type 2 diabetes mellitus with hemoglobin A1c goal of less than 8.0% ([facility]) Use to test blood sugar up to twice daily. Dx E11.9 200 Each 3 01/11/2023 Active OneTouch Verio In Vitro Strip (Glucose Blood)Indications:Ty pe 2 diabetes mellitus with hemoglobin A1c goal of less than 8.0% ([facility]) USE TO TEST BLOOD SUGAR UP TO TWICE DAILY 200 Strip 2 02/22/2023 5 Active Nebulizer/Tubing/Sindy thpiece KitIndications:COPD, group D, by GOLD 2017 classification ([facility]) Replacement requested as hers isn't delivering medicine [...] 2017 classification ([facility]) 1 dose inhaled every evening. Rinse mouth after use. 90 Each 3 02/22/2023 Active Dicyclomine HCl 10 MG Oral Capsule (Bentyl) Take 1 Capsule by mouth 2 times a day as needed for Cramping. 60 Capsule 1 03/24/2023 Active predniSONE 10 MG Oral Tablet (Deltasone)Indicatio ns:COPD, group D, by GOLD 2017 classification ([facility]) 4 tabs for 2 days, 3 tabs [...] nodule 08/14/2019 Coronary artery disease invo lving [place] coronary artery of [place] heart without angina pectoris 08/30/2018 Diabetes mellitus [...] 1:40 PM EST Office Visit Family Medicine [address] [place] [phone] Sandra Rasheed MD [address] [place] [address] [place] [address] 05/10/2023 11:30 AM EST Office Visit Ophthalmology, [facility] [address] [place] [address] Mulugeta Hodges DO [address] [place] [address] 06/02/2023 11:00 AM EDT Office Visit Sleep Disorders Ctr [facility] [address] [place] [phone] Aminata Quiroz CRNP [address] [place] [address] 07/27/2023 3:00 PM EDT Office Visit Cardiology, [facility] [address] [place] [address] Laquita Leija CRNP [address] [place] [address] 07/31/2023 1:30 PM EDT Nurse Only Ancillary [address] [place] [address] [place], Nurse [address] [place] [address] 09/06/2023 10:00 AM EDT Office Visit Sleep Disorders Ctr [facility] [address] [place] [phone] Aminata Quiroz CRNP [address] [place] [address] 09/08/2023 1:00 PM EDT Office Visit Gastroenterology [address] [place] [address] Jelly Mills CRNP [address] [place] [address] 02/28/2024 11:00 AM EST Imaging Radiology [facility] [address] [place] [address] Scheduled Procedures Name Priority Associated Diagnoses Date/Ti [...] COPD 03/24/2024 03/24/2023 CKD HGB USE SMARTSET 29304 03/27/202403/27, 02/03/2023, 02/03/2023, Additional history exists CKD PHOS USE SMARTSET 43827 03/27/202410/2023, 04/26/2022, 04/21/2021, Additional history exists COLONOSCOPY-EVERY [...] this encounter Medical Devices Implanted Type Area Funding Specialist Device Identifier Shelf Expiration Date Model / Serial / Lot Gynecare Tvt Device Implanted:Qty: 1 on 06/18/2013 at OR [facility] N/A: Bladder 02/17/2016 [id number] / / [id number] documented as of this encounter Procedures Procedure Name Priority Date/Time Associated Diagnosis Comments CTA CHEST NON-CORONARY W CONTRAST Routine 03/27/2023 documented in this encounter Results * CTA CHEST NON-CORONARY W CONTRAST (03/27/2023) Anatomical Region Laterality Modality Chest, Cardio, Body Other 03/27/2023 History Per Patient RAD CT documented in this encounter Additional Health Concerns Infection Onset Date Last Indicated Resolved Time RSV 03/24/2023 03/24/2023 documented as of this encounter Care Teams Physician Representative Relationship Specialty Start Date End Date Sandra Rasheed MD [address] [place] [address] [place] [address] PCP - General Family Medicine 06/05/15 documented as of this encounter
--- OUTSIDE RECORDS SUMMARY | 2023-06-01 06:50 | External Medical Summary | Summary of Care ---
Author Name Unknown Organization [facility] Address [address] [place] [address] Phone [phone] Care Team Providers Care Polishing Machine Operator Name Role Phone Sandra Rasheed MD Primary Care Provide r Encounter Details Date Type Department Care Team (Late st Contact Info) Description 03/27/2023 Result Scan Unspecified Department <No scans attached> [...] tablets to use x 5 days at [facility] 06-14-18 Take 1 Tab by mouth 3 times a day as needed for Dizziness. Indications: Given script for 8 tablets to use x 5 days at [facility] 06-14-18 90 Tab 0 10/31/2018 Active CPAP every night at bedtime. 0 Active Olopatadine HCl 0.2 % Ophthalmic Solution ([facility]) Instill 1 Drop into both eyes daily. [...] hemoglobin A1c goal of less than 8.0% ([facility]) TAKE ONE TABLET BY MOUTH EVERY MORNING [...] 3 12/26/2022 4 Active OneTouch Delica Plus [id number] :Type 2 diabetes mellitus with hemoglobin A1c goal of less than 8.0% ([facility]) Use to test blood sugar up to twice daily. Dx E11.9 200 Each 3 01/11/2023 Active OneTouch Verio In Vitro Strip (Glucose Blood)Indications:Ty pe 2 diabetes mellitus with hemoglobin A1c goal of less than 8.0% ([facility]) USE TO TEST BLOOD SUGAR UP TO TWICE DAILY 200 Strip 2 02/22/2023 5 Active Nebulizer/Tubing/Sindy thpiece KitIndications:COPD, group D, by GOLD 2017 classification ([facility]) Replacement requested as hers isn't delivering medicine [...] COPD, group D, by GOLD 2017 classification ([facility]) 1 dose inhaled every evening. Rinse mouth after use. 90 Each 3 02/22/2023 Active Dicyclomine HCl 10 MG Oral Capsule (Bentyl) Take 1 Capsule by mouth 2 times a day as needed for Cramping. 60 Capsule 1 03/24/2023 Active predniSONE 10 MG Oral Tablet (Deltasone)Indicatio ns:COPD, group D, by GOLD 2017 classification ([facility]) 4 tabs for 2 days, 3 tabs for 2 days, 2 tabs for 2 days 1 tab for 2 days with food 30 Tablet 0 03/24/2023 Active Azithromycin 250 MG Oral Tablet (Zithromax Z-Bob)Indications:[place] PD, group D, by GOLD 2017 classification ([facility]) Take two tablets by mouth on first [...] nodule 08/14/2019 Coronary artery disease invo lving [place] coronary artery of [place] heart without angina pectoris 08/30/2018 Diabetes mellitus [...] PM EST Office Visit Family Medicine [address] [place] [phone] Sandra Rasheed MD [address] [place] [address] [place] [address] 05/10/2023 11:30 AM EST Office Visit Ophthalmology, [facility] [address] [place] [address] Mulugeta Hodges DO [address] [place] [address] 06/02/2023 11:00 AM EDT Office Visit Sleep Disorders Ctr [facility] [address] [phone] Aminata Quiroz CRNP [address] [place] [address] 07/27/2023 3:00 PM EDT Office Visit Cardiology, [facility] [address] [place] [address] Laquita Leija CRNP [address] [place] [address] 07/31/2023 1:30 PM EDT Nurse Only Ancillary [address] [place] [address] [place], Nurse [address] [place] [address] 09/06/2023 10:00 AM EDT Office Visit Sleep Disorders Ctr [facility] [address] [place] [phone] Aminata Quiroz CRNP [address] [place] [address] 09/08/2023 1:00 PM EDT Office Visit Gastroenterology [address] [place] [address] Jelly Mills CRNP [address] [place] [address] 02/28/2024 11:00 AM EST Imaging Radiology [address] [place] [address] Scheduled Procedures Name Priority Associated Diagnoses Date/Ti [...] Additional history exists CKD PHOS USE SMARTSET 37619 04/26/2023 02/0 09/2022, 04/21/2021, 12/06/2019, Additional history exists Diabetic Foot Exam 04/26/2023 04/26/2022, 0 07/22/2021, 07/21/2020, Additional history exists HbA1c 04/29/2023 10/27/2022, 0209/2022, 04/21/2021, Additional history exists DXA Scan 07/24/2023 07/23/2020, 07/20, 03/25/2013 Depression Screening 07/27/2023 07/26/2022 GFR 08/04/2023 02/03/2023, 10/18, 04/26/2022, Additional history exists Diabetic Eye Exam 08/11/2023 08/10/2022, , 06/23/2021, Additional history exists CKD HGB USE SMARTSET 71485 02/04/202402/03, 02/03/2023, 10/27/2022, Additional history exists O2 ASSESSMENT COMPLETED [...] Medical Devices Implanted Type Area Full Stack Net Developer Device Identifier Shelf Expiration Date Model / Serial / Lot Gynecare Tvt Device Implanted:Qty: 1 on 06/18/2013 at OR [facility] N/A: Bladder 02/17/2016 [id number] / / [id number] documented as of this encounter Procedures Procedure Name Priority Date/Time Associated Diagnosis Comments EKG SCANNED RESULT 03/27/2023 documented in this encounter Results * EKG SCANNED RESULT (03/27/2023) 03/27/2023 No Physician Data Unknown EKG documented in this encounter Additional Health Concerns Infection Onset Date Last Indicated Resolved Time RSV 03/24/2023 03/24/2023 documented as of this encounter Care Teams Polishing Machine Operator Relationship Specialty Start Date End Date Sandra Rasheed MD [address] [place] [address] [place] [phone] PCP - General Family Medicine 06/05/15 documented as of this encounter
--- OUTSIDE RECORDS SUMMARY | 2023-06-01 06:50 | External Medical Summary | Summary of Care ---
Author Name Unknown Organization [facility] Address [address] [place] [address] Phone [phone] Care Team Providers Care Assembler Clip On Sunglasses Name Role Phone Sandra Rasheed MD Primary Care Provide r Reason for Visit * Reason Onset Date Comments Advice 03/28/2023 Encounter Details Date Type Department Care Team (Late st Contact Info) Description 03/28/2023 Telephone Ancillary [address] [place] [address] Sandra Rasheed MD [address] [place] [address] [place] [address] Advice Allergies Active Allergy Reactions Criticality Noted Date Comments Influenza Vaccines 01/06/2015 Had flu symptoms x 1 month after injection Iodinated Contrast Media High 09/01/2016 Hives 48 hours post cardiac cath. No respiratory symptoms Sulfa Antibiotics Unknown 02/22/2013 documented as of this encounter (statuses as of 03/28/2023) Medications Medication Sig Dispensed Refills Start Date [...] less than 8.0% ([facility]) TAKE ONE TABLET BY MOUTH [...] 3 12/26/2022 4 Active OneTouch Delica Plus [id number] :Type 2 diabetes mellitus with hemoglobin A1c [...] ns:COPD, group D, by GOLD 2017 classification ([facility]) 4 tabs for 2 days, [...] as of this encounter (statuses as of 03/28/2023) Active Problems Problem Noted Date Diagnosed Date [...] nodule 08/14/2019 Coronary artery disease invo lving [place] coronary artery of [place] heart without angina pectoris 08/30/2018 Diabetes mellitus [...] as of this encounter (statuses as of 03/28/2023) Resolved Problems Problem Noted Date Diagnosed Date [...] as of this encounter (statuses as of 03/28/2023) Immunizations Name Administration Dates Next Due HEP [...] Telephone Encounter - Cha Mcclendon RN - 03/28/2023 1:55 PM EST VM on my machine requesting a call back, patient had called yesterday and was told to go to ED. Patient was dx with RSV and was having difficulty with breathing. Patient states she was lifeflighted from [facility] and is currently there and it is still difficult to breath. Patient does sound terrible on the phone, Patient to call us once she gets out of the hospital for a follow up and sooner if we can help with anything. Message sent to Sandra Rasheed MD just as FYI. documented in this encounter Plan of Treatment Upcoming Encounters Date Type Department Care Team (Late st Contact Info) Description 05/02/2023 1:40 PM EST Office Visit Family Medicine [address] [phone] Sandra Rasheed MD [address] [place] [address] [place] [address] 05/10/2023 11:30 AM EST Office Visit Ophthalmology, [facility] [place] [address] Mulugeta Hodges, DO [address] [place] [address] 06/02/2023 11:00 AM EDT Office Visit Sleep Disorders Ctr [facility] [address] [place] [phone] Aminata Quiroz CRNP [address] [place] [address] 07/27/2023 3:00 PM EDT Office Visit Cardiology, [facility] [place] [address] Laquita Leija CRNP [address] [place] [address] 07/31/2023 1:30 PM EDT Nurse Only Ancillary [address] [place] [address] [place], Nurse [address] [place] [address] 09/06/2023 10:00 AM EDT Office Visit Sleep Disorders Ctr [facility] [address] [place] [phone] Aminata Quiroz CRNP [address] [place] [address] 09/08/2023 1:00 PM EDT Office Visit Gastroenterology [address] [place] [address] Jelly Mills, BILINGUAL TEACHER AIDE [address] [place] [address] 02/28/2024 11:00 AM EST Imaging Radiology [address], [place] [address] [place] [address] Scheduled Procedures Name Priority Associated Diagnoses Date/Ti [...] Additional history exists CKD PHOS USE SMARTSET 94772 04/26/202309/2022, 04/21/2021, 12/06/2019, Additional history exists Diabetic Foot Exam 04/26/2023 04/26/2022, 0 07/22/2021, 07/21/2020, Additional history exists HbA1c 04/29/2023 10/27/2022, 020 09/2022, 04/21/2021, Additional history exists DXA Scan 07/24/2023 07/23/2020, 07/20, 03/25/2013 Depression Screening 07/27/2023 07/26/2022 GFR 08/04/2023 02/03/2023, 10/18, 04/26/2022, Additional history exists Diabetic Eye Exam 08/11/2023 08/10/2022, , 06/23/2021, Additional history exists CKD HGB USE SMARTSET 90182 02/04/202402/03, 02/03/2023, 10/27/2022, Additional history exists O2 [...] this encounter Medical Devices Implanted Type Area Appellate Court Clerk Device Identifier Shelf Expiration Date Model / Serial / Lot Gynecare Tvt Device Implanted:Qty: 1 on 06/18/2013 at OR [facility] N/A: Bladder 02/17/2016 [id number] / / [id number] documented as of this encounter Additional Health Concerns Infection Onset Date Last Indicated Resolved Time RSV 03/24/2023 03/24/2023 documented as of this encounter Care Teams Assembler Clip On Sunglasses Relationship Specialty Start Date End Date Sandra Rasheed MD [address] [place] [address] [place] [address] PCP - General Family Medicine 06/05/15 documented as of this encounter
--- OUTSIDE RECORDS SUMMARY | 2023-06-01 06:50 | External Medical Summary | Summary of Care ---
Author Name Unknown Organization [facility] Address [address] [place] [address] Phone [phone] Care Team Providers Care Sourcing Assistant Name Role Phone Sandra Rasheed MD Primary Care Provide r Reason for Visit * Reason Comments eRx-Medication Refill Encounter Details Date Type Department Care Team (Late st Contact Info) Description 03/23/2023 Refill Family Medicine [address] [phone] Susan Solorzano, PA-C [address] [place] [address] [id number] COPD, group D, by GOLD 2017 classification ([facility]) Allergies Active Allergy Reactions Criticality Noted Date Comments Influenza Vaccines 01/06/2015 Had flu symptoms x 1 month after injection Iodinated Contrast Media High 09/01/2016 Hives 48 hours post cardiac cath. No respiratory symptoms Sulfa Antibiotics Unknown 02/22/2013 documented as of this encounter (statuses as of 03/24/2023) Medications Medication Sig Dispensed Refills Start Date End Date Status ASPIRIN 81 MG PO TABS Take by mouth at bedtime. 0 Active Cholecalciferol 1000 UNITS Capsule Take 1 Capsule by mouth at bedtime. 30 Cap 3 09/09/2016 Active meclizine (ANTIVERT) 25 MG TabletIndications:Gi daren script for 8 tablets to use x 5 days at [facility] 06-14-18 Take 1 Tab by mouth 3 times a day as needed for Dizziness. Indications: Given script for 8 tablets to use x 5 days at [facility] 06-14-18 90 Tab 0 10/31/2018 Active [...] hemoglobin A1c goal of less than 8.0% ([facility]) TAKE ONE TABLET BY MOUTH EVERY MORNING [...] DAY 100 Tablet 4 10/24/2022 4 Active predniSONE 10 MG Oral Tablet (Deltasone)Indicatio ns:Pneumonia of right lower lobe due to infectious organism 4 tabs for 2 days, 3 tabs for 2 days, 2 tabs for 2 days 1 tab for 2 days with food 30 Tablet 0 12/01/2022 Active Additional Information Patient not taking.Reported on 02/22/2023 Spironolactone 25 MG Oral Tablet (Aldactone)Indicatio ns:Hypertension [...] 3 12/26/2022 4 Active OneTouch Delica Plus [id number] :Type 2 diabetes mellitus with hemoglobin A1c goal of less than 8.0% ([facility]) Use to test blood sugar up to twice daily. Dx E11.9 200 Each 3 01/11/2023 Active OneTouch Verio In Vitro Strip (Glucose Blood)Indications:Ty pe 2 diabetes mellitus with hemoglobin A1c goal of less than 8.0% ([facility]) USE TO TEST BLOOD SUGAR UP TO TWICE DAILY 200 Strip 2 02/22/2023 5 Active Nebulizer/Tubing/Sindy thpiece KitIndications:COPD, group D, by GOLD 2017 classification ([facility]) Replacement requested as hers isn't delivering medicine [...] COPD, group D, by GOLD 2017 classification ([facility]) 1 dose inhaled every evening. Rinse mouth after use. 90 Each 3 02/22/2023 Active documented as of this encounter (statuses as of 03/24/2023) Active Problems Problem Noted Date Diagnosed Date [...] nodule 08/14/2019 Coronary artery disease invo lving [place] coronary artery of [place] heart without angina pectoris 08/30/2018 Diabetes mellitus [...] as of this encounter (statuses as of 03/24/2023) Resolved Problems Problem Noted Date Diagnosed Date [...] as of this encounter (statuses as of 03/24/2023) Immunizations Name Administration Dates Next Due HEP [...] encounter Miscellaneous Notes * Telephone Encounter - Kaiden Carirllo RPh - 03/24/2023 11:34 AM EST Refused Prescriptions: Disp Refills Arnuity Ellipta 200 MCG/ACT Inhalation Aer* 3 Sig: Inhale 1 Puff by mouth in the morning.Refused By: KAIDEN CARRILLO for Refusal: Duplicate Request--- documented in this encounter Plan of Treatment Upcoming Encounters Date Type Department Care Team (Late st Contact Info) Description 03/24/2023 1:00 PM EST Office Visit Gastroenterology [address] [place] [address] Jelly Mills CRNP [address] [place] [address] 05/02/2023 1:40 PM EST Office Visit Family Medicine [address] [place] [phone] Sandra Rasheed MD [address] [place] [address] [place] [address] 05/10/2023 11:30 AM EST Office Visit Ophthalmology, [facility] [address] [place] [address] Mulugeta Hodges, [address] [place] [address] 06/02/2023 11:00 AM EDT Office Visit Sleep Disorders Ctr [facility] [address] [facility] [place] [phone] Aminata Quiroz CRNP [address] [place] [address] 07/27/2023 3:00 PM EDT Office Visit Cardiology, [facility] [address] [facility] [place] [address] Laquita Leija CRNP [address] [place] [address] 07/31/2023 1:30 PM EDT Nurse Only Ancillary [address] [place] [address] [place], Nurse Annual [address] [place] [address] 09/06/2023 10:00 AM EDT Office Visit Sleep Disorders Ctr [facility] [address] [place] [phone] Aminata Quiroz CRNP [address] [place] [address] 02/28/2024 11:00 AM EST Imaging Radiology [address] [place] [address] Scheduled Procedures Name Priority Associated Diagnoses [...] Additional history exists CKD PHOS USE SMARTSET 88555 04/26/202309/2022, 04/21/2021, 12/06/2019, Additional history exists Diabetic Foot Exam 04/26/2023 04/26/2022, 0 07/22/2021, 07/21/2020, Additional history exists HbA1c 04/29/2023 10/27/2022, 020 09/2022, 04/21/2021, Additional history exists DXA Scan 07/24/2023 07/23/2020, 07/20, 03/25/2013 Depression Screening 07/27/2023 07/26/2022 GFR 08/04/2023 02/03/2023, 08, 04/26/2022, Additional history exists Diabetic Eye Exam 08/11/2023 08/10/2022, , 06/23/2021, Additional history exists CKD HGB USE SMARTSET 34099 02/04/202402/03, 02/03/2023, 10/27/2022, Additional history exists O2 ASSESSMENT COMPLETED IN PAST YEAR FOR COPD 02/23/2024 02/22/2023 COLONOSCOPY-EVERY 3 YRS AGES 18-100 07/13/2025 07/13/2022, [...] this encounter Medical Devices Implanted Type Area Wiring Inspector Device Identifier Shelf Expiration Date Model / Serial / Lot Gynecare Tvt Device Implanted:Qty: 1 on 06/18/2013 at OR [facility] N/A: Bladder 02/17/2016 [id number] / / [id number] documented as of this encounter Visit Diagnoses Diagnosis COPD, group D, by GOLD 2017 classification (HCC) documented in this encounter Care Teams Sourcing Assistant Relationship Specialty Start Date End Date Sandra Rasheed MD [address] [place] [address] [place] [address] PCP - General Family Medicine 06/05/15 documented as of this encounter
--- OUTSIDE RECORDS SUMMARY | 2023-06-01 06:50 | External Medical Summary | Summary of Care ---
Author Name Unknown Organization [facility] Address [address] [place] [address] Phone [phone] Care Team Providers Care Check And Transfer Beader Name Role Phone Sandra Rasheed MD Primary Care Provide r Reason for Visit * Reason Comments Follow Up Review tests , and d iscuss abd pain Encounter Details Date Type Department Care Team (Late st Contact Info) Description 03/24/2023 1:00 PM EST Office Visit Gastroenterology [address] [place] [address] Jelly Mills CRNP [address] [place] [address] Hepatic steatosis*; IPMN (intraductal papillary mucinous neoplasm) Allergies Active Allergy Reactions Criticality Noted Date [...] tablets to use x 5 days at [facility] 06-14-18 Take 1 Tab by mouth [...] 3 12/26/2022 4 Active OneTouch Delica Plus [id number] s:Type 2 diabetes mellitus with hemoglobin A1c [...] , group D, by GOLD 2017 classification ([facility] [...] :COPD, group D, by GOLD 2017 classification ([facility]) 1 dose inhaled every evening. Rinse mouth after use. 90 Each 3 02/22/2023 Active Dicyclomine HCl 10 MG Oral Capsule (Bentyl) Take 1 Capsule by mouth 2 times a day as needed for Cramping. 60 Capsule 1 03/24/2023 Active predniSONE 10 MG Oral Tablet (Deltasone)Indicati ons:Pneumonia of right lower lobe due to infectious organism 4 tabs for 2 days, 3 tabs for 2 days, 2 tabs for 2 days 1 tab for 2 days with food 30 Tablet 0 12/01/2022 4 Discontinu ed(Refill) documented as of this [...] nodule 08/14/2019 Coronary artery disease invo lving [place] coronary artery of [place] heart without angina pectoris 08/30/2018 Diabetes mellitus [...] Sign Reading Time Taken Comments Blood Pressure 150/60 03/24/2023 12:31 PM EST Pulse 84 03/24/2023 12:31 PM EST Temperature 36 C (96.8 F) 03/24/2023 12: 31 PM EST Respiratory Rate - - Oxygen Saturation 93% 03/24/2023 12: 31 PM EST Inhaled Oxygen Concentration - - Weight 83.8 kg (184 lb 12.8 oz) 024 12:31 PM EST Height - - Body Mass Index 33.26 02/22/2023 3:10 PM EST documented in this encounter Progress Notes * Jelly Mills CRNP - 03/24/2023 12:41 PM EST DATE OF SERVICE: 03/24/23 REFERRING PHYSICIAN: Alverto Sykes DO CC: F/U Hepatic steatosis HPI: 09/07/16 Mildred Moser is a 70 year old female referred by Dr. Sykes for recently findings on RUQ u/s which showed hepatic steatosis and possible early changes of cirrhosis on L lobe, also localizededema. Pt had been c/o bilateral LE edema w hx of cellulitis treated w steroids and antibx. She wasalso having issue w abdominal distension. Recently marked increase in weight from 185-215 lbs in last 7 months. She had been on Lasix but said edema wasn't controlled with this med thus now changed to Demadex which took care of the leg edema. But she is still having abd distension, making it hard for her to breath especially when laying down and also causing pressure & sometimes pain on epigastric area. Of note she is also a chronic smoker and has COPD, on inhalers. Previously had cardiac cath w pressure measurements which showed that edema unlikely from CHF. Previous labs showed LFTs normal, no coagulopathies, normal protein and Albumin counts. Dyslipidemia controlled w Lipitor. Pt is obese, blood sugars and A1C elevated but never been on meds for diabetes. She had been on steroids for several COPD exacerbations. She denies any hx of liver diseases in family or autoimmune disorders. She is still smoking 1-2 cigarrettes a day, denies ETOH abuse. Denies illicit drugs hx including marijuana. + one home made tattoos, ear piercing, no blood transfusion hx, denies sexual relations w known Hepatitis + partners. She denies confusion, jaundice, CP, + SOB (underlying COPD). + abd distension as above though RUQ u/s showed no ascites. No rashes. LE edema improved on Demadex. She is staying on low salt diet. Seeing Dr. Womack today for CKD. 02/17/17: Pt here for f/u. After last visit had liver serologies obtained - elevated AMA, SPEP concerning for MGUS. She is currently following w Dr. Weston. She hasn't obtained Hep A and B vaccination. Fibrosure F0 score. She feels that upper abd is distended by night time. + epigastric discomfort. Denies any n/v, reflux, heartburn, appetite/weight loss. Denies any bowel habit changes. On Torsemide, Spironolactone. She is having some lower leg swelling but stable. 05/19/17: Pt here for f/u. Doing well, denies any complaints. She is due for repeat EGD 05/29 for gastric ulcer healing surveillance. Denies any abd pain, n/v. Been on Prilosec 40mg daily still. Is smoking 2-3 cigs a day. She moves bowels 2x a day w/o rectal bleeding. Leg swelling much improved. 11/24/17: Pt here for f/u. Doing ok. Recently went to Ortho and had R knee joint fluid removal, steroid injection, still sore and going for MRI, but walking better. She denies any jaundice, fever, chills, CP, SOB, abd distension, abd pain, n/v, bowel habit changes, or GI bleeding or leg edema. 05/18/18: Pt here for f/u. Doing fair. She was admitted earlier in Apr for COPD exacerbation and pneumonia. Breathing better now. Denies CP, SOB. No abd pain, n/v, jaundice, increased abd distension or leg edema. 11/23/18: Pt working 3rd shift [employer]. Sleeping pattern off. Denies SOB, CP, indigestion, reflux, abd pain, n/v, bowels move at least once daily w/o rectal bleeding/straining. Was treated for leg dermatitis a couple of months ago - resolved. 05/24/19: Pt c/o productive cough, some CA. Just seen by family med before this appt. Prescribed Augmentin. Also going to try to quit smoking w Chantix. She denies CP, abd pain, n/v, bowel habit changes. 01/03/20: Pt reports no issues w abd pain, n/v, abd distension, leg edema, jaundice. Bowels move daily w/o rectal bleeding. 02/03/23: Pt is having upper abd discomfort if abd is palpated or if she slouches when she sits down. Bowels are not moving regularly. Stools can be small and other times loose. No rectal bleeding. No n/v, leg edema. 03/24/23: Pt c/o cough, CA worse today. Is a smoker, denies sick contact. Took home COVID test which came back negative. She is having crampy and pressure pain across upper abd area noticeable when she is sitting down. No n/v. Regular bowel movements. Past Medical History: Diagnosis Date COPD (chronic obstructive pulmonary disease) (HCC) COVID-19 10/25/2021 CRVO (central retinal vein occlusion) OS Dyslipidemia, goal LDL below 130 Hypercholesteremia Hypertension Hypertension goal BP (blood pressure) < 140/90 Hypertensive retinopathy OU Impaired fasting glucose 02/22/2013 Lung nodule PAD (peripheral artery disease) ([facility]) 07/22/2014 Pneumonia 06/08/2015 [facility] Postmenopausal atrophic vaginitis 06/05/2013 Preoperative respiratory examination 02/27/2020 Retinal edema OS Sleep apnea, obstructive Tobacco use disorder Tubular adenoma of colon Urge incontinence of urine 06/05/2013 Urinary incontinence without sensory awareness Urinary, incontinence, stress female Vitreous hemorrhage of left eye ([facility]) Family History Problem Relation Age of Onset Arthritis Mother Diabetes Mother Heart Disorder Mother Obesity Mother Cancer Mother ovarian Stroke Mother Asthma Mother Arthritis Father Heart Disorder Father Diabetes Grandmother (Maternal) Diabetes Grandmother (Paternal) Heart Disorder Brother Lung Disorder Brother COPD Asthma Brother Heart Disorder Brother Lung Disorder Brother Past Surgical History: Procedure Laterality Date ARTHO,SHOUL,W/ROTATOR CUFF x 2 BREAST LESION,OTHER,EXCISION Right Benign-fatty tumor COLONOSCOPY 09/15/2014 adenomatous polyp, diverticulosis and AVM in cecum, repeat 5 yrs COLONOSCOPY, DIAGNOSTIC (RECTUM) 09/15/2014 COLONOSCOPY FLEXIBLE PROXIMAL DIAGNOSTIC performed by Lauren Kenny MD at ENDOSCOPY [facility] COLONOSCOPY, DIAGNOSTIC (RECTUM) 09/16/2019 diverticulosis sigmoid and descending colon/biopsies show serrated adenomatous polyps/recall 6 months/COLONOSCOPY FLEXIBLE PROXIMAL DIAGNOSTIC performed by Lauren Kenny MD at ENDOSCOPY [facility] COLONOSCOPY, DIAGNOSTIC (RECTUM) N/A 02/27/2020 adenomatous polyp, diverticulosis, repeat 3 yrs / COLONOSCOPY FLEXIBLE PROXIMAL DIAGNOSTIC performed by Lauren Kenny MD at ENDOSCOPY [facility] COLONOSCOPY, DIAGNOSTIC (RECTUM) N/A 07/13/2022 [facility], colonoscopy, diverticulosis in sigmoid / no specimens collected / 5 year recall / CYSTOSCOPY 06/18/2013 CYSTOURETHROSCOPY performed by Charlee Handley MD at OR [facility] EGD, FLEXIBLE, DIAGNOSTIC 02/20/2017 mild stomach irritation, gastric ulcers, hiatal hernia, repeat 3 mo/ESOPHAGOGASTRODUODENOSCOPY (EGD), FLEXIBLE, TRANSORAL, DIAGNOSTIC performed by Maye Zavala MD at ENDOSCOPY [facility] EGD, FLEXIBLE, DIAGNOSTIC 05/29/2017 hiatal hernia/ESOPHAGOGASTRODUODENOSCOPY (EGD), FLEXIBLE, TRANSORAL, DIAGNOSTIC performed by MD Sepideh at ENDOSCOPY [facility] EGD, FLEXIBLE, DIAGNOSTIC N/A 07/13/2022 [facility], EGD normal scope / no specimens collected [...] OS CONSENT, DR. HODGES REMOVAL OF APPENDIX 1959 [facility], [place] - Dr JAMIA Wang REMOVAL OF OVARY/OVIDUCT(S) bilateral - PAH REMOVAL OF TONSILS, UNDER AGE [age] yo [facility] - Dr. JAMIA Wang REMOVE GALLBLADDER at 61yrs old lap REPAIR ARM TENDON/MUSCLE 1998 right side REPAIR BLADDER DEFECT 06/18/2013 VAGINAL SLING PROCEDURE FOR STRESS INCONTINENCE performed by Charlee Handley MD at OR [facility] REPAIR INITIAL INCISIONAL OR VENTRAL HERNIA; REDUCIBLE post hysterectomy - has mesh in- Dr. Jim TOTAL ABD HYSTERECTOMY W/WO REMOVAL OF TUBE(S) benign disease- PAH Social History Tobacco Use Smoking status: Every Day Packs/day: 2.00 Years: 58.00 Additional pack years: 0.00 Total pack years: 116.00 Types: Cigarettes Smokeless tobacco: Never Tobacco comments: 03/30/22 currently smoking 10-15 cig/day - max smoked was 2 ppd Vaping Use Vaping Use: Never used Substance Use Topics Alcohol use: Yes Alcohol/week: 0.0 standard drinks of alcohol Comment: rare wine Drug use: No Review of patient's allergies indicates: Allergen Reactions Iodinated Contrast Media Hives 48 hours post cardiac cath. No respiratory symptoms Influenza Vaccines Had flu symptoms x 1 month after injection Sulfa Antibiotics Unknown Current Outpatient Medications Medication Sig Dispense Refill [...] [facility] 06-14-18 90 Tab 0 CPAP every night at bedtime. Olopatadine HCl 0.2 % Ophthalmic Solution (Patada) [...] the morning. 90Capsule 3 OneTouch Delica Plus [id number] Use to test blood sugar up to twice daily. Dx E11.9 200 Each 3 OneTouch Verio In Vitro Strip (Glucose Blood) USE TO TEST BLOOD SUGAR UP TO TWICE DAILY 200 Strip 2 Nebulizer/Tubing/Mouthpiece Kit Replacement requested as hers isn't delivering medicine well and isold. DME: [facility] 1 Kit 0 B Complex Oral Capsule Take 1 Capsule by mouth in the morning. Anoro Ellipta 62.5-25 MCG/ACT Inhalation Aerosol Powder Breath Activated (umeclidinium-vilanterol) Inhale 1 dose by mouth every morning. 180 Each 3 Arnuity Ellipta 200 MCG/ACT Inhalation Aerosol Powder Breath Activated (fluticasone Furoate) 1 doseinhaled every evening. Rinse mouth after use. 90 Each 3 predniSONE 10 MG Oral Tablet (Deltasone) 4 tabs for 2 days, 3 tabs for 2 days, 2 tabs for 2 days 1 tab for 2 days with food (Patient not taking: Reported on 02/22/2023) 30 Tablet 0 No current facility-administered medications for this visit. REVIEW OF SYSTEMS: See HPI above; All other findings negative. EXAM: Filed Vitals: 03/24/23 1231 BP: 150/60 Pulse: 84 Temp: 36 C (96.8 F) SpO2: 93% Weight: 83.8 kg (184 lb 12.8 oz) GENERAL: Obese 74 year old female, in no acute distress. SKIN: No rashes, ulcers, jaundice or spider angiomata. HEENT: Normocephalic, sclera clear. NECK: Supple, trachea midline, no JVD LUNGS: CTA bilateral lungs, w/o respiratory distress noted. HEART: Regular rate & rhythm, no murmurs and no gallops. ABDOMEN: Normal bowel sounds, soft and non tender. No fluid wave appreciated. EXTREMITIES: No palmar erythema, no ankle edema, no skin discoloration, no clubbing, no cyanosis. NEURO: No lateralizing findings, no asterixis. Sensory/Motor grossly normal. ASSESSMENT AND PLAN: Mildred Moser is a 77 year old female w abnormal RUQ u/s findings of hepatic steatosis, early changes of cirrhosis on L lobe though her LFTs have been normal, no signs of coagulopathy on previous labs. Fibrosure score F0. Wondering if changes in u/s is related to fatty liver instead of cirrhosis. Workup showed AMA elevated. Reviewed results w Dr. Kenny - no signs of chronic liver disease (no coagulopathy, low platelets; LFTs normal, F0 fibrosure score). No clear benefit for obtaining liver bx to r/o PBC, as no signs of liver disease, nor indication for treatment with ursodiol given normal LFTs. SPEP suspicious for MGUS, followed by Heme/Onc She is having pain across upper abd area, MRI abd showed pancreas divisum. No ductal dilatation. 5 mm distal pancreatic tail cystic focus, possibly small side branch IPMN. - Repeat MRI scheduled 02/28/2024 - Completed Hep A and B vaccination series in August 2017 - Decreased Prilosec to 20mg daily given renal disease (Cr 1.4-1.6) - Last EGD 06/2022: normal; stomach bx (-) for IM, dysplasia, malignancy, Hpylori. - Last Colonoscopy 06/2022: Diverticulosis sigmoid colon - For constipation prevention: Miralax 17g + Metamucil 2 tsp - Low salt (2g diet), no more than 4g APAP. Advised to lose weight via lifestyle and dietary changes. Avoidance of ETOH. - Added to acute visit appt in Family Practice with Dr. Rasheed today RETURN TO CLINIC: 6 months; and sooner Lindsey Ariza [facility] Gastroenterology, [facility] documented in this encounter Nursing Notes * Bernadine Park LPN - 03/24/2023 12:32 PM EST Patient identified by name and date of . Chief Complaint Patient presents with Follow Up Review tests , and discuss abd pain documented in this encounter Plan of Treatment Upcoming Encounters Date Type Department Care Team (Late st Contact Info) Description 05/02/2023 1:40 PM EST Office Visit Family Medicine [address] [place] [phone] Sandra Rasheed MD [address] [place] [address] [place] [address] 05/10/2023 11:30 AM EST Office Visit Ophthalmology, [facility] [address] [place] [address] Mulugeta Hodges DO [address] [place] [address] 06/02/2023 11:00 AM EDT Office Visit Sleep Disorders Ctr [facility] [address] [place] [phone] Aminata Quiroz CRNP [address] [place] [address] 07/27/2023 3:00 PM EDT [facility] [place] [address] Laquita Leija CRNP [address] [place] [address] 07/31/2023 1:30 PM EDT Nurse Only Ancillary [address] [place] [address] [place], Nurse Annual Wellness [address] [place] [address] [place] [address] 09/06/2023 10:00 AM EDT Office Visit Sleep Disorders Ctr [facility] [address] [place] [phone] Aminata Quiroz CRNP [address] [place] [address] 09/08/2023 1:00 PM EDT Office Visit Gastroenterology [address] [place] [address] Jelly Mills CRNP [address] [place] [address] 02/28/2024 11:00 AM EST Imaging Radiology [address] [place] [address] Scheduled Procedures Name Priority Associated Diagnoses Date/Ti [...] Additional history exists CKD PHOS USE SMARTSET 50399 04/26/20230 09/2022, 04/21/2021, 12/06/2019, Additional history exists Diabetic Foot Exam 04/26/2023 04/26/2022, 0 07/22/2021, 07/21/2020, Additional history exists HbA1c 04/29/2023 10/27/2022, 09/2022, 04/21/2021, Additional history exists DXA Scan 07/24/2023 07/23/2020, 07/20, 03/25/2013 Depression Screening 07/27/2023 07/26/2022 GFR 08/04/2023 02/03/2023, 08/, 04/26/2022, Additional history exists Diabetic Eye Exam 08/11/2023 08/10/2022, , 06/23/2021, Additional history exists CKD HGB USE SMARTSET 39464 02/04/202402/03, 02/03/2023, 10/27/2022, Additional history exists O2 [...] this encounter Medical Devices Implanted Type Area Licensed Practical Vocational Nurse Device Identifier Shelf Expiration Date Model / Serial / Lot Gynecare Tvt Device Implanted:Qty: 1 on 06/18/[address] [facility] N/A: Bladder 02/17/2016 [id number] / / [id number] documented as of this encounter Visit Diagnoses Diagnosis Hepatic steatosis- Primary Other chronic nonalcoholic liver disease IPMN (intraductal papillary mucinous neoplasm) Neoplasm of unspecified nature of digestive system documented in this encounter Care Teams Check And Transfer Beader Relationship Specialty Start Date End Date Sandra Rasheed MD [address] [place] [address] [place] [address] PCP - General Family Medicine 06/05/15 documented as of this encounter
--- OUTSIDE RECORDS SUMMARY | 2023-06-01 06:50 | External Medical Summary ---
Author Name Unknown Address Unknown Organization K01:[facility] [place] [address] [id number] Laboratory Report Ordering Provider Test Date Status LOUISE HEADLEY 03/24/2023 13:15:15 Final Observation Date Value Abnormality Reference (Units ) Status SARS Coronavirus 2 03/24/2023 13:15:15 Negative N egative Final No SARS-CoV2 Coronavirus RNA detected by PCR (amplified probe).
This express test was developed and its performance characteristics determined by [facility]. It has not been cleared or approved by the U.S. Food and Drug Administration (FDA). FDA does not require this test to go thru premarket FDA review. This test is used for clinical purposes. It should not be regarded as investigational or for research. This laboratory is certified under the Clinical Laboratory Improvement Amendments (CLIA) as qualified to perform high complexity clinical laboratory testing.

This test is a nucleic acid amplification test (NAAT), a reverse transcriptase polymerase chain reaction (RT-PCR) test, or a Centers for Disease Control-acceptable equivalent. The test is performed in a high complexity Clinical Laboratory Improvement Amendments-(CLIA) certified laboratory. The test is acceptable for SARS-CoV-2 diagnosis, surveillance, and travel within the [place] and to most countries. Please check with local testing authorities about requirements before travel.

The validation of bronchial specimens, tracheal aspirates, and sputum for this assay was developed and performance characteristics determined by [facility]. The validation of alternate specimen types has not been cleared or approved by the U.S. Food and Drug Administration (FDA). It has been determined that such clearance is not necessary. Influenza virus A RNA [Prese nce] in Specimen by [facility] with probe detection 03/24/2023 13:15:15 Negative Negative Final No Influenza A RNA detected by PCR (amplified probe) Influenza virus B RNA [Prese nce] in Specimen by [facility] with probe detection 03/24/2023 13:15:15 Negative Negative Final No Influenza B RNA detected by PCR (amplified probe) Respiratory syncytial virus RNA [Identifier] in Specimen by SAMANTA with probe detection 03/24/2023 13:15:15 Positive Abnormal Negative Final Respiratory Syncytial Virus RNA detected by PCR (amplified probe). Test results reported to [facility]. Performing Location [facility] [place] [facility] [address] [place], [place] [address]
--- OUTSIDE RECORDS SUMMARY | 2023-06-01 06:50 | External Medical Summary | Summary of Care ---
Author Name Unknown Organization [facility] Address [address] [place] [address] Phone [phone] Care Team Providers Care Field Artillery Operations Specialist Name Role Phone Sandra Rasheed MD Primary Care Provide r Reason for Visit * Reason Comments Acute Encounter Details Date Type Department Care Team (Latest Contact Info) Description 03/24/2023 1:00 PM EST Office Visit Family Medicine [address] [phone] Sandra Rasheed MD [address] [place] [address] [place] [address] Acute cough*; COPD, group D, by GOLD 2017 classification ([facility]); Diabetes mellitus type 2 with peripheral artery disease ([facility]) Allergies Active Allergy Reactions Criticality Noted Date [...] tablets to use x 5 days at [facility] 06-14-18 Take 1 Tab by mouth 3 times a day as needed for Dizziness. Indications: Given script for 8 tablets to use x 5 days at [facility] 06-14-18 90 Tab 0 10/31/2018 Active [...] 3 12/26/2022 4 Active OneTouch Delica Plus [id number] s:Type 2 diabetes mellitus with hemoglobin A1c goal of less than 8.0% ([facility]) Use to test blood sugar up to twice daily. Dx E11.9 200 Each 3 01/11/2023 Active OneTouch Verio In Vitro Strip (Glucose Blood)Indications:T ype 2 diabetes mellitus with hemoglobin A1c goal of less than 8.0% ([facility]) USE TO TEST BLOOD SUGAR UP TO TWICE DAILY 200 Strip 2 02/22/2023 5 Active Nebulizer/Tubing/Mo uthpiece KitIndications:COPD , group D, by GOLD 2017 classification ([facility]) Replacement requested as hers isn't delivering medicine [...] group D, by GOLD 2017 classification ([facility]) 1 dose inhaled every evening. Rinse mouth after use. 90 Each 3 02/22/2023 Active Dicyclomine HCl 10 MG Oral Capsule (Bentyl) Take 1 Capsule by mouth 2 times a day as needed for Cramping. 60 Capsule 1 03/24/2023 Active predniSONE 10 MG Oral Tablet (Deltasone)Indicati ons:COPD, group D, by GOLD 2017 classification ([facility]) 4 tabs for 2 days, 3 tabs for 2 days, 2 tabs for 2 days 1 tab for 2 days with food 30 Tablet 0 03/24/2023 Active Azithromycin 250 MG Oral Tablet (Zithromax Z-Bob)Indications:C OPD, group D, by GOLD 2017 classification ([facility]) Take two tablets by mouth on first day, then 1 tablet daily until gone 6 Tablet 0 03/24/2023 Active predniSONE 10 MG Oral Tablet [...] nodule 08/14/2019 Coronary artery disease invo lving nez perce coronary artery of nez perce heart without angina pectoris 08/30/2018 Diabetes mellitus [...] as of this encounter Progress Notes * Sandra Rasheed MD - 03/24/2023 1:06 PM EST Subjective: Mildred Moser is a 77 year old female. Chief Complaint Patient presents with Acute HPI: Brief Clinical History Ms. Moser is a 77 year old woman last seen in Family Medicine 3 months ago (12-12-22). She is due for eval of Centrilobular emphysema (HCC), COPD, group D, by GOLD 2017 classification (HCC), Diabetes mellitus type 2 with peripheral artery disease (HCC), Hypertensive kidney disease with stage 3b chronic kidney disease (HCC), Pulmonary hypertension (HCC), Type 2 diabetes mellitus with diabetic cataract (HCC), and Type 2 diabetes mellitus with stage 3b chronic kidney disease, without long-term current use of insulin (HCC). Woke up sick this morning. Has cough, congestion, sore throat, and some shortness of breath. Did a negative home COVID test this morning. No known sick contacts. Did have family over for the holidays. Has severe COPD and somewhat frequent exacerbations. Continues to smoke 2 PPD. Has not had a feveror chills. Has not had flu or COVID vaccines. Blood sugars have been doing much better per patient. Results for orders placed or performed in visit on 02/03/23 COMPREHENSIVE METABOLIC PANEL Result Value Ref Range BUN 14 6 - 20 mg/dL Creatinine 1.2 (H) 0.5 - 1.0 mg/dL Estimated Glomerular Filtration Rate 48 (L) >=60 mL/min Sodium 140 135 - 146 mmol/L Potassium 4.4 3.5 - 5.1 mmol/L Chloride 102 98 - 107 mmol/L CO2 27 22 - 32 mmol/L Anion Gap 11 7 - 15 mmol/L Glucose 107 70 - 120 mg/dL Albumin 4.2 3.8 - 5.0 g/dL AST 19 10 - 35 U/L Alkaline Phosphatase 112 35 - 130 U/L Bilirubin, Total 0.5 <=1.2 mg/dL Calcium 9.6 8.4 - 10.2 mg/dL Protein 5.9 (L) 6.0 - 8.3 g/dL ALT 25 10 - 35 U/L PT INR Result Value Ref Range Prothrombin Time 13.2 11.6 - 15.2 seconds INR 1.0 0.8 - 1.2 CBC Result Value Ref Range WBC 5.38 4.00 - 10.80 K/uL RBC 4.68 3.85 - 5.15 M/uL HGB 14.2 12.0 - 15.3 g/dL HCT 43.7 36.0 - 45.2 % MCV 93.4 81.5 - 97.5 fL MCH 30.3 27.0 - 34.0 pg MCHC 32.5 32.0 - 36.0 g/dL RDW 14.2 11.5 - 15.5 % PLT 160 140 - 400 K/uL MPV 10.4 6.6 - 11.1 fL nRBCs 0 <=0 /100 WBCs DIFFERENTIAL, AUTOMATED Result Value Ref Range WBC 5.38 4.00 - 10.80 K/uL Neutrophils % 61.7 40.0 - 75.0 % Lymphocytes % 26.2 18.0 - 42.0 % Monocytes % 7.4 1.0 - 11.0 % Eosinophils % 2.8 0.0 - 6.0 % Basophils % 1.3 0.0 - 2.0 % Immature Granulocytes % 0.6 0.0 - 2.0 % Absolute Neutrophils 3.32 1.80 - 7.70 K/uL Absolute Lymphocytes 1.41 1.00 - 4.80 K/ul Absolute Monocytes 0.40 0.00 - 1.10 K/uL Absolute Eosinophils 0.15 0.00 - 0.70 K/uL Absolute Basophils 0.07 0.00 - 0.20 K/uL Absolute Immature Granulocytes 0.03 0.00 - 0.20 K/uL *Note: Due to a large number of [...] group D, by GOLD 2017 classification ([facility]) J44.9 Allergy to iodinated contrast Z91.041 Type 2 diabetes mellitus with hemoglobin A1c goal of less than 8.0% ([facility]) E11.9 Gastric ulcer K25.9 MGUS (monoclonal gammopathy of unknown significance) D47.2 Centrilobular emphysema ([facility]) J43.2 Nocturnal hypoxemia G47.34 Diabetes mellitus type 2 with peripheral artery disease ([facility]) E11.51 Coronary artery disease involving nez perce coronary artery of nez perce heart without angina pectoris I25.10 Lung nodule R91.1 Gastro-esophageal reflux disease without esophagitis K21.9 Type 2 diabetes mellitus with stage 3b chronic kidney disease, without long-term current use of insulin ([facility]) E11.22, N18.32 Hypertensive kidney disease with stage 3b chronic kidney disease (HCC) I12.9, N18.32 Pulmonary hypertension (HCC) I27.20 Type 2 diabetes mellitus with diabetic cataract (HCC) E11.36 Dyslipidemia, goal LDL below 70 E78.5 Constipation K59.00 Immunization not carried out because of patient decision Z28.20 Current Outpatient Medications Medication Sig Dispense Refill predniSONE 10 MG Oral Tablet (Deltasone) 4 tabs for 2 days, 3 tabs for 2 days, 2 tabs for 2 days 1 tab for 2 days with food 30 Tablet 0 Azithromycin 250 MG Oral Tablet (Zithromax Z-Bob) Take two tablets by mouth on first day, then 1 tablet daily until gone 6 Tablet 0 ASPIRIN 81 MG PO TABS Take by mouth at bedtime. Cholecalciferol 1000 UNITS Capsule Take 1 Capsule by mouth at bedtime. 30 Cap 3 meclizine (ANTIVERT) 25 MG Tablet Take 1 Tab by mouth 3 times a day as needed for Dizziness. Indications: Given script for 8 tablets to use x 5 days at [facility] 06-14-18 90 Tab 0 CPAP every [...] the morning. 90Capsule 3 OneTouch Delica Plus [id number] Use to test blood sugar up to twice daily. Dx E11.9 200 Each 3 OneTouch Verio In Vitro Strip (Glucose Blood) USE TO TEST BLOOD SUGAR UP TO TWICE DAILY 200 Strip 2 Nebulizer/Tubing/Mouthpiece Kit Replacement requested as hers isn't delivering medicine well and isold. DME: [employer] 1 Kit 0 B Complex Oral Capsule [...] Diagnosis Date COPD (chronic obstructive pulmonary disease) ([facility]) COVID-19 10/25/2021 CRVO (central retinal vein occlusion) OS Dyslipidemia, goal LDL below 130 Hypercholesteremia Hypertension Hypertension goal BP (blood pressure) < 140/90 Hypertensive retinopathy OU Impaired fasting glucose 02/22/2013 Lung nodule PAD (peripheral artery disease) ([facility]) 07/22/2014 Pneumonia 06/08/2015 [facility] Postmenopausal atrophic vaginitis 06/05/2013 Preoperative respiratory examination 02/27/2020 Retinal edema OS Sleep apnea, obstructive Tobacco use disorder Tubular adenoma of colon Urge incontinence of urine 06/05/2013 Urinary incontinence without sensory awareness Urinary, incontinence, stress female Vitreous hemorrhage of left eye ([facility]) Past Surgical History: Procedure Laterality Date ARTHO,SHOUL,W/ROTATOR CUFF x 2 BREAST LESION,OTHER,EXCISION Right Benign-fatty tumor COLONOSCOPY 09/15/2014 adenomatous polyp, diverticulosis and AVM in cecum, repeat 5 yrs COLONOSCOPY, DIAGNOSTIC (RECTUM) 09/15/2014 COLONOSCOPY FLEXIBLE PROXIMAL DIAGNOSTIC performed by Lauren Kenny MD at ENDOSCOPY [facility] COLONOSCOPY, DIAGNOSTIC (RECTUM) 09/16/2019 diverticulosis sigmoid and descending colon/biopsies show serrated adenomatous polyps/recall 6 months/COLONOSCOPY FLEXIBLE PROXIMAL DIAGNOSTIC performed by Lauren Kenny MD at ENDOSCOPY [facility] COLONOSCOPY, DIAGNOSTIC (RECTUM) N/A 02/27/2020 adenomatous polyp, diverticulosis, repeat 3 yrs / COLONOSCOPY FLEXIBLE PROXIMAL DIAGNOSTIC performed by Lauren Kenny MD at ENDOSCOPY [facility] COLONOSCOPY, DIAGNOSTIC (RECTUM) N/A 07/13/2022 [facility], colonoscopy, diverticulosis in sigmoid / no specimens collected / 5 year recall / CYSTOSCOPY 06/18/2013 CYSTOURETHROSCOPY performed by Charlee Handley MD at OR [facility] EGD, FLEXIBLE, DIAGNOSTIC 02/20/2017 mild stomach irritation, gastric ulcers, hiatal hernia, repeat 3 mo/ESOPHAGOGASTRODUODENOSCOPY (EGD), FLEXIBLE, TRANSORAL, DIAGNOSTIC performed by Maye Zavala MD at ENDOSCOPY [facility] EGD, FLEXIBLE, DIAGNOSTIC 05/29/2017 hiatal hernia/ESOPHAGOGASTRODUODENOSCOPY (EGD), FLEXIBLE, TRANSORAL, DIAGNOSTIC performed by MD Sepideh at ENDOSCOPY [facility] EGD, FLEXIBLE, DIAGNOSTIC N/A 07/13/2022 [facility], EGD normal scope / no [...] CONSENT, DR. HODGES REMOVAL OF APPENDIX 1960 [place], [place] - Dr JAMIA Wang REMOVAL OF OVARY/OVIDUCT(S) bilateral - PAH REMOVAL OF TONSILS, UNDER AGE [age] yo [facility] - Dr. JAMIA Wang REMOVE GALLBLADDER at 61yrs old lap REPAIR ARM TENDON/MUSCLE 1998 right side REPAIR BLADDER DEFECT 06/18/2013 VAGINAL SLING PROCEDURE FOR STRESS INCONTINENCE performed by Charlee Handley MD at OR [facility] REPAIR INITIAL INCISIONAL OR VENTRAL HERNIA; REDUCIBLE post hysterectomy - has mesh in- Dr. 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 [employer] Employer: [employer] Tobacco Use Smoking status: Every Day Packs/day: [...] Resource Strain: Not on file Food Insecurity: No Food Insecurity (03/05/2019) Hunger Vital Sign Worried About Running Out of Food in the Last Year: Never true Ran Out of Food in the Last Year: Never true Transportation Needs: Not on file Physical Activity: Not on file Stress: Not on file Social Connections: Not on file Intimate Partner Violence: Not on file Housing Stability: Not on file Review of patient's allergies indicates: Allergen Reactions Iodinated Contrast Media Hives 48 hours post cardiac cath. No respiratory symptoms Influenza Vaccines Had flu symptoms x 1 month after injection Sulfa Antibiotics Unknown Objective: There were no vitals taken for this visit. Physical Exam: General: alert, no distress, well nourished, and well developed Head: Normocephalic, No masses, lesions, tenderness or abnormalities Eye Exam: PERRLA, extraocular movements intact, conjunctiva are pink and non- injected, sclera clear Ears: External ears normal, Canals clear, TM's Normal Nose: no mucosal erythema, no mucosal edema, no purulent discharge, no sinus tenderness Oropharynx: no exudate, no erythema, lips, buccal mucosa, and tongue normal, mucous membranes are moist, and post nasal drip Neck: supple, no adenopathy Heart: regular rate & rhythm, no murmur, and no gallops Lungs: chest symmetric with normal AP diameter, no chest deformities noted, no chest wall tenderness, expiratory wheezes bilaterally, scattered rhonchi bilaterally Extensive ROS Constitutional (f/c/wt/vision/hearing): see above hpi Resp (cough/sob/wong): see above hpi CV (cp/palp/fluttering/diaphoresis/wong/pnd):Negative GI (n/v/d/hrtburn): stable Endo (hair/cold or heat intol/ 3 p's): see above hpi Neuro (shaking/weak/fatigu/parasthesi/): +neuropathy Skin (rash/easy bruis/xerosis): Negative Psy (si/hi/halluc/): Negative (nocturia/hesit/drib/sexual review): Negative Lymph (swollen glands/b sx's/: Negative ASSESSMENT: Acute cough (Primary) - INFLUENZA A/B RSV SARS-COV2,PCR; Future; Expected date: 03/24/2023 - INFLUENZA A/B RSV SARS-COV2,PCR COPD, group D, by GOLD 2017 classification ([facility]) - predniSONE 10 MG Oral Tablet (Deltasone); 4 tabs for 2 days, 3 tabs for 2 days, 2 tabs for 2 days1 tab for 2 days with food - Azithromycin 250 MG Oral Tablet (Zithromax Z-Bob); Take two tablets by mouth on first day, then 1tablet daily until gone Diabetes mellitus type 2 with peripheral artery disease ([facility]) Follow Up: Return as scheduled. PLAN: Continue present medication(s): Begin medication(s): Prednisone and Zithromax for COPD exacerbation Schedule labs: Respiratory PCR to r/o flu, COVID, and RSV Follow up: As scheduled. Sandra Rasheed MD documented in this encounter Plan of Treatment Upcoming Encounters Date Type Department Care Team (Late st Contact Info) Description 05/02/2023 1:40 PM EST Office Visit Family Medicine [address] [place] [phone] Sandra Rasheed MD [address] [place] [address] [place] [address] 05/10/2023 11:30 AM EST Office Visit Ophthalmology, [facility] [address] [address] Mulugeta Hodges DO [address] [address] 06/02/2023 11:00 AM EDT Office Visit Sleep Disorders [facility] [address] [phone] Aminata Quiroz CRNP [address] [address] 07/27/2023 3:00 PM EDT Office Visit Cardiology, [facility] [address] [place] [address] Laquita Leija CRNP [address] [address] 07/31/2023 1:30 PM EDT Nurse Only Ancillary [address] [place] [address] [place], Nurse [address] [place] [address] 09/06/2023 10:00 AM EDT Office Visit Sleep Disorders [facility]tr [facility] [address] [place] [phone] Aminata Quiroz CRNP [address] [place] [address] 09/08/2023 1:00 PM EDT Office Visit Gastroenterology [address] [place] [address] Jelly Mills CRNP [address] [place] [address] 02/28/2024 11:00 AM EST Imaging Radiology [facility] [address] [facility] [place] [address] Scheduled Orders Name Type Priority Associated Diagnoses Orde r Schedule INFLUENZA A/B RSV SARS-COV2,PCR Lab Routine Acute cough Expected: 03/24/2023 (Approximate), Expires: 03/23/2024 Scheduled Procedures Name Priority Associated Diagnoses Date/Ti [...] Additional history exists CKD PHOS USE SMARTSET 44648 04/26/20230 09/2022, 04/21/2021, 12/06/2019, Additional history exists Diabetic Foot Exam 04/26/2023 04/26/2022, 0 07/22/2021, 07/21/2020, Additional history exists HbA1c 04/29/2023 10/27/2022, 09/2022, 04/21/2021, Additional history exists DXA Scan 07/24/2023 07/23/2020, 07/20, 03/25/2013 Depression Screening 07/27/2023 07/26/2022 GFR 08/04/2023 02/03/2023, 10/18, 04/26/2022, Additional history exists Diabetic Eye Exam 08/11/2023 08/10/2022, , 06/23/2021, Additional history exists CKD HGB USE SMARTSET 06874 02/04/202402/03, 02/03/2023, 10/27/2022, Additional history exists O2 [...] this encounter Medical Devices Implanted Type Area Coffee Weigher Device Identifier Shelf Expiration Date Model / Serial / Lot Gynecare Tvt Device Implanted:Qty: 1 on 06/18/2013 at OR [facility] N/A: Bladder 02/17/2016 [id number] / / [id number] documented as of this encounter Visit Diagnoses Diagnosis Acute cough- Primary COPD, group D, by GOLD 2017 classification ([facility]) Diabetes mellitus type 2 with peripheral artery disease (HCC) Type II or unspecified type diabetes mellitus with peripheral circulatory disorders, not stated as uncontrolled documented in this encounter Care Teams Field Artillery Operations Specialist Relationship Specialty Start Date End Date Sandra Rasheed MD [address] [place] [address] [place] [phone] PCP - General Family Medicine 06/05/15 documented as of this encounter
--- OUTSIDE RECORDS SUMMARY | 2023-06-01 06:51 | External Medical Summary | Summary of Care ---
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 Name Role Phone Sandra Rasheed MD Primary Care Provide r Reason for Visit * Reason Comments Follow Up Sleep Apnea COPD Emphysema Nocturnal Hypoxemia Lung Nodule Encounter Details Date Type Department Care Team (Latest Contact Info) Description 02/22/2023 3:30 PM EST Office Visit Sleep Disorders Ctr [facility] [address] [place] [phone] Aminata Quiroz CRNP [address] [facility] [place] [address] Obstructive sleep apnea*; Nocturnal hypoxemia; COPD, group D, by GOLD 2017 classification ([facility]); Centrilobular emphysema ([facility]); Tobacco use disorder; Pulmonary hypertension ([facility]); Hypertension associated with stage 3b chronic kidney disease due to type 2 diabetes mellitus ([facility]); Chronic bronchitis, unspecified chronic bronchitis type ([facility]) Allergies Active Allergy Reactions Criticality Noted Date Comments Influenza Vaccines 01/06/2015 Had flu symptoms x 1 month after injection Iodinated Contrast Media High 09/01/2016 Hives 48 hours post cardiac cath. No respiratory symptoms Sulfa Antibiotics Unknown 02/22/2013 documented as of this encounter (statuses as of 02/22/2023) Medications Medication Sig Dispensed Refills Start Date End Date Status ASPIRIN 81 MG PO TABS Take by mouth at bedtime. 0 Active Cholecalciferol 1000 UNITS Capsule Take 1 Capsule by mouth at bedtime. 30 Cap 3 7 Active meclizine (ANTIVERT) 25 MG TabletIndications: Given script for 8 tablets to use x 5 days at [facility] 06-14-18 Take 1 Tab by mouth 3 times a day as needed for Dizziness. Indications: Given script for 8 tablets to use x 5 days at [facility] 06-14-18 90 Tab 0 9 Active [...] than 8.0% (FORMERLY [facility]) TAKE ONE TABLET BY MOUTH EVERY MORNING 100 Tablet 1 3 024 Active Metoprolol Tartrate 25 MG Oral Tablet (Lopressor)Indicat ions:Hypertensive kidney disease with stage 3b chronic kidney disease (HCC),Hypertension with goal blood pressure less than 140/80 TAKE ONE-HALF TABLET BY MOUTH TWICE A DAY. 90 Tablet 3 3 024 Active Ipratropium-Albute rol 0.5-2.5 (3) MG/3ML Inhalation Solution (Duoneb) INHALE ONE VIAL VIA NEBULIZER EVERY 6 HOURS NEEDED FOR DYSPNEA 1080 mL 5 3 024 Active Albuterol Sulfate HFA 108 (90 Base) MCG/ACT Inhalation Aerosol Solution INHALE TWO PUFFS BY MOUTH EVERY 4 HOURS NEEDED FOR COUGH, FOR SHORTNESS OF BREATH, OR WHEEZING 54 g 3 3 024 Active Torsemide 10 MG Oral Tablet (Demadex)Indicatio ns:Hypertension with goal blood pressure less than 140/80,Localized edema TAKE ONE TABLET BY MOUTH ONCE DAILY TAKE ONE ADDITIONAL TABLET BY MOUTH IN THE AFTERNOON ON MONDAY, MONDAY AND MONDAY 135 Tablet 1 3 024 Active Losartan Potassium 50 MG Oral Tablet (Cozaar)Indication s:Hypertension with goal blood pressure less than 140/80 TAKE ONE TABLET BY MOUTH EVERY DAY 100 Tablet 4 3 024 Active predniSONE 10 MG Oral Tablet (Deltasone)Indicat ions:Pneumonia of right lower lobe due to infectious organism 4 tabs for 2 days, 3 tabs for 2 days, 2 tabs for 2 days 1 tab for 2 days with food 30 Tablet 0 3 Active Additional Information Patient not taking.Reported on 02/22/2023 Spironolactone 25 MG Oral Tablet (Aldactone)Indicat ions:Hypertension goal BP (blood pressure) < 150/90,Localized edema TAKE ONE TABLET BY MOUTH ON MONDAY, MONDAY, AND MONDAY. TAKE ONE-HALF TABLET ON ALL OTHER DAYS OF THE WEEK 64 Tablet 3 3 024 Active Atorvastatin Calcium 40 MG Oral Tablet (Lipitor)Indicatio ns:Dyslipidemia, goal LDL below 130,Hypertension goal BP (blood pressure) < 150/90 Take 1 Tablet by mouth every day 90 Tablet 3 3 024 Active Omeprazole 20 MG Oral Capsule Delayed Release (PriLOSEC)Indicati ons:Hypertension goal BP (blood pressure) < 150/90 Take 1 Capsule by mouth in the morning. 90 Capsule 3 3 024 Active OneTouch Delica Plus [id number] ns:Type 2 diabetes mellitus with hemoglobin A1c goal of less than 8.0% ([facility]) Use to test blood sugar up to twice daily. Dx E11.9 200 Each 3 3 Active OneTouch Verio In Vitro Strip (Glucose Blood)Indications: Type 2 diabetes mellitus with hemoglobin A1c goal of less than 8.0% ([facility]) USE TO TEST BLOOD SUGAR UP TO TWICE DAILY 200 Strip 2 3 025 Active Nebulizer/Tubing/M outhpiece KitIndications:PREANALYTICS TEAM LEAD D, group D, by GOLD 2017 classification ([facility]) Replacement requested as hers isn't delivering medicine well and is old. DME: [facility] 1 Kit 0 3 Active B Complex Oral Capsule Take 1 Capsule by mouth in the morning. 0 Active Anoro Ellipta 62.5-25 MCG/ACT Inhalation Aerosol Powder Breath Activated (umeclidinium-lety nterol) Inhale 1 dose by mouth every morning. 180 Each 3 3 Active Arnuity Ellipta 200 MCG/ACT Inhalation Aerosol Powder Breath Activated (fluticasone Furoate)Indication s:COPD, group D, by GOLD 2017 classification ([facility]) 1 dose inhaled every evening. Rinse mouth after use. 90 Each 3 3 Active Arnuity Ellipta 200 MCG/ACT Inhalation Aerosol Powder Breath Activated (fluticasone Furoate)Indication s:COPD, group D, by GOLD 2017 classification ([facility]) Inhale 1 Puff by mouth in the morning. 30 Each 3 3 023 Discontinued(Re fill) Anoro Ellipta 62.5-25 MCG/ACT Inhalation Aerosol Powder Breath Activated (umeclidinium-lety nterol) Inhale 1 Puff by mouth every evening. 60 Each 2 3 023 Discontinued(Re fill) Multi Vitamin Daily Oral Tablet Take by mouth. 0 023 Discontinued documented as of this encounter (statuses as of 02/22/2023) Active Problems Problem Noted Date Diagnosed Date [...] nodule 08/14/2019 Coronary artery disease invo lving [place] coronary artery of [place] heart without angina pectoris 08/30/2018 Diabetes mellitus [...] as of this encounter (statuses as of 02/22/2023) Resolved Problems Problem Noted Date Diagnosed Date [...] as of this encounter (statuses as of 02/22/2023) Immunizations Name Administration Dates Next Due HEP [...] Sign Reading Time Taken Comments Blood Pressure 150/58 02/22/2023 3:10 PM EST Pulse 67 02/22/2023 3:10 PM EST Temperature 36.2 C (97.1 F) 02/22/2023 3:10 PM ES T Respiratory Rate 16 02/22/2023 3:10 PM EST Oxygen Saturation 97% 02/22/2023 3:10 PM EST Inhaled Oxygen Concentration - - Weight 84.4 kg (186 lb) 02/22/2023 3:10 PM EST Height 158.8 cm (5' 2.5") 02/22/2023 3:10 PM EST Body Mass Index 33.48 02/22/2023 3:10 PM EST documented in this encounter Progress Notes * Aminata Quiroz CRNP - 02/22/2023 3:26 PM EST Images from the original note were not included. [facility] Mildred Moser is a 77 year old female seen today for six-month follow-up with history of COPD, emphysema, active tobacco use, lung nodule, pulmonary hypertension, OMARI treated on CPAP. Medical history includes chronic rhinitis, PND, GERD, gastric ulcers, type 2 diabetes, hypertension, CKD, retinal vein occlusion, MGUS, CAD, insomnia an allergy to IV contrast. Pulmonary Symptoms: Reports 1 ER visits (Nov), 0 hospitalizations and 2 courses of prednisone (both in Nov) related to their breathing in the past year. Cough: not daily, noted with first laying down noting sinus drainage Sputum Production: minimal in the morning, clear, suspects PND Hemoptysis: denies Dyspnea: with exertion outside the house Chest tightness or wheezing: denies Triggers: humidity, grass clippings, cleaning products Environmental allergies: sneezing in the morning, notes intermittent pressure, PND GI: denies GERD and dysphagia, on omeprazole with benefit Cardiac: denies swelling in legs, continues diuretics but holds the dose if she's leaving the home SpO2 low 94% at home Continues smoking, 1/2 - 1/ ppd. Has tried patch to quit, chantix, not ready to quit. Pulmonary Medications: Anoro - 1 dose daily in the am Arnuity 200 mcg - 1 dose daily in the pm Albuterol HFA - with SOB or wheeze -prn, about 2-3x/week DuoNeb - used few times a week No mucinex or flutter Doesn't use nasal corticosteroid spray (resulted in medicine dripping down the back of her throat during short trial) or antihistamine. Finds Vics nasal spray helpful. Sleep Symptoms & Treatment: [facility] is telling her that her insurance won't pay for her PAP machine and that they need to sampler pickup her unit. She continues to use CPAP nightly with noted benefit. Having ongoing mask issues as her frame is too small and she hasn't been able to get supplies. She has been very unable with [employer] as they previously were sending her all supplies when she didn't request them. Compliance Data: Report date: 30 days 10/05/2022 % total days used: 97 % days used > 4 hours: 97 Average hours per day used: 8.2 hours Large leak: 26 L/min AHI: 0.6 Equipment: DME Provider: Mathieu Device: ResVent Settings: 4-20 cm H2O (ordered 10-20 cmH20 as of 12/08/2021 order) Interface Type: FFM Problem List: Patient Active Problem List Diagnosis Code Hypertension with goal blood pressure less than 140/80 I10 Advanced directives, counseling/discussion Z71.89 Central retinal vein occlusion H34.8192 Hypertensive retinopathy H35.039 Persistent insomnia G47.00 Tobacco use disorder F17.200 Family history of ischemic heart disease Z82.49 OMARI (obstructive sleep apnea) G47.33 COPD, group D, by GOLD 2017 classification ([facility]) J44.9 Allergy to iodinated contrast Z91.041 Type 2 diabetes mellitus with hemoglobin A1c goal of less than 8.0% ([facility]) E11.9 Gastric ulcer K25.9 MGUS (monoclonal gammopathy of unknown significance) D47.2 Centrilobular emphysema ([facility]) J43.2 Nocturnal hypoxemia G47.34 Diabetes mellitus type 2 with peripheral artery disease (HCC) E11.51 Coronary artery disease involving [place] coronary artery of [place] heart without angina pectoris I25.10 Lung nodule R91.1 Gastro-esophageal reflux disease without esophagitis K21.9 Type 2 diabetes mellitus with stage 3b chronic kidney disease, without long-term current use of insulin (HCC) E11.22, N18.32 Hypertensive kidney disease with stage 3b chronic kidney disease (HCC) I12.9, N18.32 Pulmonary hypertension (HCC) I27.20 Type 2 diabetes mellitus with diabetic cataract ([facility]) E11.36 Dyslipidemia, goal LDL below 70 E78.5 Constipation K59.00 Immunization not carried out because of patient decision Z28.20 Medications: Outpatient Medications Marked as Taking for the 02/22/23 encounter (Office Visit) with Aminata Quiroz CRNP Medication Sig B Complex Oral Capsule Take 1 Capsule by mouth in the morning. Multi Vitamin Daily Oral Tablet Take by mouth. Nebulizer/Tubing/Mouthpiece Kit Replacement requested as hers isn't delivering medicine well and isold. DME: [facility] Atorvastatin Calcium 40 MG Oral Tablet (Lipitor) Take 1 Tablet by mouth every day Omeprazole 20 MG Oral Capsule Delayed Release (PriLOSEC) Take 1 Capsule by mouth in the morning. Spironolactone 25 MG Oral Tablet (Aldactone) TAKE ONE TABLET BY MOUTH ON MONDAY, MONDAY, AND MONDAY. TAKE ONE-HALF TABLET ON ALL OTHER DAYS OF THE WEEK Anoro Ellipta 62.5-25 MCG/ACT Inhalation Aerosol Powder Breath Activated (umeclidinium-vilanterol) Inhale 1 Puff by mouth every evening. Arnuity Ellipta 200 MCG/ACT Inhalation Aerosol Powder Breath Activated (fluticasone Furoate) Inhale1 Puff by mouth in the morning. Losartan Potassium 50 MG Oral Tablet (Cozaar) TAKE ONE TABLET BY MOUTH EVERY DAY Torsemide 10 MG Oral Tablet (Demadex) TAKE ONE TABLET BY MOUTH ONCE DAILY TAKE ONE ADDITIONAL TABLET BY MOUTH IN THE AFTERNOON ON MONDAY, MONDAY AND MONDAY glipiZIDE ER 5 MG Oral Tablet Extended [...] winter. Olopatadine HCl 0.2 % Ophthalmic Solution (Pataday) Instill 1 Drop into both eyes daily. CPAP every night at bedtime. meclizine (ANTIVERT) 25 MG Tablet Take 1 Tab by mouth 3 times a day as needed for Dizziness. Indications: Given script for 8 tablets to use x 5 days at [facility] 06-14-18 Cholecalciferol 1000 UNITS Capsule Take 1 Capsule by mouth at bedtime. ASPIRIN 81 MG PO TABS Take by mouth at bedtime. 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 Weight stable Cardiovascular: Negative for chest pain, palpitations and leg swelling. Musculoskeletal: Positive for neck stiffness. Neurological: Positive for headaches (with sinus or neck stiffness). Psychiatric/Behavioral: Positive for sleep disturbance (intermittent). Diagnostics: -Split night PSG 03/11/2016 (BMI 32): AHI 23, SpO2 luis angel was 72%; corrected with CPAP pressure of 9, PLMAI 12 - HST 11/2021: TANA 6.7, SpO2 luis angel 78% with 260 minutes < 89% - Noct ox 04/14/2022 on CPAP (4-10 cmH2O): SpO2 luis angel 78% with 74 minutes < 89% Pulmonary Function Test Results: Performed on 07/2021 BMI 31. Flow loops obstructive. Spirometry is restrictive. There is no significant bronchodilator response. Lung volumes with normal TLC ruling out true restriction. There is evidence of air trapping. DLCO uncorrected for hemoglobin is moderately reduced. Overall suspected COPD preserved ratio. Compared to prior PFT from 12/2017 there has a down trendin the FEV1, a significant worsening in the DLCO.This interpretationhas been electronically signed: Darisu Garcia 08/31/2021 02:31:22 PM 6 MWT Performed 08/17/21 Ambulated 411 meters on RA, 96% at rest, low 94% with ambulation, no rest periods LDCT scan: Performed on 12/28/2022 COMPARISON: CT chest 02/18/2022 FINDINGS: Lung Screening Specific (LungRADS): No suspicious pulmonary nodule. Potentially Significant Incidentals (LungRADS Category S): None. Pulmonary incidentals: Emphysema. Bronchial wall thickening, suggestive of chronic bronchitis. Scattered areas of linear type subsegmental atelectasis versus scarring. Other Incidentals: Heavy coronary artery calcification. Mitral annular calcification. Cholecystectomy. Unchanged atrophic right kidney. Degenerate changes of the visualized spine. IMPRESSION: 1. LungRADS Category 2: Negative, benign appearance or behavior. 2. LungRADS Category S: Negative. No new/unknown potentially significant incidental findings requiring additional evaluation. 3. Incidental findings as above. NM Myocardial Perfusion Performed 12/28/2022 Reported as normal per Dr. Sykes Echocardiogram: Performed on 11/05/21 Dobutamine stress portion cancelled due to resting echo findings. The examination is adequate to evaluate the referral indication. The qualitative LV ejection fraction is >70% (hyperdynamic). The left ventricular cavity size is normal. The inducible peak instantaneous left ventricular outflow tract gradient is 121.2 mm Hg. The right ventricular systolic function is normal as assessed by tricuspid annular plane systolic excursion (TAPSE) (normal >1.7 cm). The left atrium is mildly enlarged. The left ventricular diastolic function is mildly abnormal (grade I). Mild aortic valve sclerosis is present. Aortic stenosis is absent. There is no significant aortic regurgitation. Mild mitral regurgitation is present. Right/Left Heart Cath 07/2016: Mild elevation of pulmonary pressures, mild to moderate non obstructive CAD Kennan Sleepiness Scale Question 02/22/2023 3:15 PM EST - Filed by Latrice Stafford LPN What is the chance you will doze off in the following situation? Sitting and reading Slight chance of dozing Watching TV High chance of dozing Sitting inactive in a public place, such as a theater or meeting No chance of dozing As a passenger in a car for an hour without a break High chance of dozing Lying down to rest in the afternoon when circumstances permit No chance of dozing When sitting and talking to someone No chance of dozing When sitting quietly after lunch without alcohol No chance of dozing In a car, while stopped for a few minutes in traffic No chance of dozing Score (range: 0 - 24) 7 Mmrc Cat Question 02/22/2023 3:18 PM EST - Filed by Latrice Stafford LPN When do you become breathless? (3) I stop for breath after walking about 100 yards or after a few minutes on level ground How frequently do you cough? (3) Do you have phlegm in your chest? (0) - I have no phlegm (mucus) in my chest Is your chest tight? (0) - My chest does not feel tight at all How breathless do you become when walking up a hill or steps? (4) How limited are you doing activities at home? (1) How confident are you leaving home with your lung condition? (0) - I am confident leaving my home despite my condition How soundly do you sleep? (2) How much energy do you have? (3) Total MMRC Score (range: 0 - 4) 3 Total CAT Score (range: 0 - 40) 13 BP 150/58 | Pulse 67 | Temp 36.2 C (97.1 F) (Tympanic) | Resp 16 | Ht 1.588 m (5' 2.5") | Wt 84.4 kg (186 lb) | SpO2 97% | BMI 33.48 kg/m | BSA 1.93 m Physical Exam Vitals and nursing note reviewed. Constitutional: General: She is not in acute distress. Appearance: She is obese. She is not ill-appearing or diaphoretic. HENT: Mouth/Throat: Pharynx: No oropharyngeal exudate. Cardiovascular: Rate and Rhythm: Normal rate and regular rhythm. Heart sounds: Murmur (RSB II/) heard. Pulmonary: Effort: Pulmonary effort is normal. No tachypnea, accessory muscle usage or respiratory distress. Breath sounds: Decreased breath sounds and wheezing (inspiratory) present. Musculoskeletal: Right lower leg: Edema present. Left lower leg: Edema present. Skin: General: Skin is warm and dry. Capillary Refill: Capillary refill takes less than 2 seconds. Nails: There is clubbing. Neurological: Mental Status: She is alert and oriented to person, place, and time. Assessment and Plan: Obstructive sleep apnea (Primary) Nocturnal hypoxemia Moderate OMARI based on AHI diagnosed in 2016 with associated hypoxemia She is compliant, therapeutic and benefitting from CPAP therapy however wrote [facility] has told her that her insurance will not cover continuation of use in the machine needs to be returned. Current pressures on machine are incorrectly set and overnight oximetry on these settings suggestedhypoxemia. New CPAP order placed with auto settings 10-20 to be submitted through [employer] to [facility] at the patient's request. Spencer agrees to contact her insurance tomorrow regarding this issue. If retesting is required she is willing. - CONT AIRWAY PRESSURE DEVICE COPD, group D, by GOLD 2017 classification (HCC) Centrilobular emphysema (HCC) Chronic bronchitis, unspecified History of exacerbation Nov 2022 in the prior 12 months. Consider adding Daliresp Smoking cessation strongly encouraged. Continue Arnuity qhs and Anoro qam Continue JO ANN HFA every 6 hours as needed. Continue JO ANN/EDDIE neb every 6 hours as needed Replacement nebulizer requested as her unit is no longer delivering medication appropriately. - Nebulizer/Tubing/Mouthpiece Kit; Replacement requested as hers isn't delivering medicine well andis old. DME: [facility] Tobacco use disorder Counseled Continue lung cancer screening program through age 80. Pulmonary hypertension (HCC) Continue CPAP therapy. Reassess overnight oximetry once on aPAP 10-20 cm H2O Continue management per Cardiology. Encouraged compliance with diuretics. Hypertension associated with stage 3b chronic kidney disease due to type 2 diabetes mellitus (HCC) Elevated today. Continue medication management per Cardiology. Continue CPAP. Follow Up: Return in about 6 months (around 08/24/2023) for pulm/sleep return. Sooner if needed. [facility] I spent a total of Greater than 55 mins (exact time 70 mins) on the date of service in preparation,delivery, and documentation of the care provided to Mildred Moser excluding any time spent in the performance of separately billed services. documented in this encounter Nursing Notes * Latrice Stafford LPN - 02/22/2023 3:18 PM EST Chief Complaint Patient presents with Follow Up Sleep Apnea COPD Emphysema Nocturnal Hypoxemia Lung Nodule Cpap DME: [employer]-would like to switch companies Interm History/Respiratory Symptoms Cough: occ-dry Hemoptysis: no Sinus Symptoms: PND Hospitalizations: no ED Trips: Last month-SOB,vertigo Triggers: cold air,humidity,cats Nocturnal: cough until she settles down with her cpap CPAP/BiPAP/O2: Cpap Flu Vaccine: no Pneumovax: 02/22/13 Prevnar: 06/15/15 COVID 19: no Kennan Sleepiness Scale Question 02/22/2023 3:15 PM EST - Filed by Latrice Stafford LPN What is the chance you will doze off in the following situation? Sitting and reading Slight chance of dozing Watching TV High chance of dozing Sitting inactive in a public place, such as a theater or meeting No chance of dozing As a passenger in a car for an hour without a break High chance of dozing Lying down to rest in the afternoon when circumstances permit No chance of dozing When sitting and talking to someone No chance of dozing When sitting quietly after lunch without alcohol No chance of dozing In a car, while stopped for a few minutes in traffic No chance of dozing Score (range: 0 - 24) 7 Mmrc Cat Question 02/22/2023 3:18 PM EST - Filed by Latrice Stafford LPN When do you become breathless? (3) I stop for breath after walking about 100 yards or after a few minutes on level ground How frequently do you cough? (3) Do you have phlegm in your chest? (0) - I have no phlegm (mucus) in my chest Is your chest tight? (0) - My chest does not feel tight at all How breathless do you become when walking up a hill or steps? (4) How limited are you doing activities at home? (1) How confident are you leaving home with your lung condition? (0) - I am confident leaving my home despite my condition How soundly do you sleep? (2) How much energy do you have? (3) Total MMRC Score (range: 0 - 4) 3 Total CAT Score (range: 0 - 40) 13 documented in this encounter Plan of Treatment Upcoming Encounters Date Type Department Care Team (Late st Contact Info) Description 05/02/2023 1:40 PM EST Office Visit Family Medicine [address] [place] [phone] Sandra Rasheed MD [address] [place] [address] [place] [address] 05/10/2023 11:30 AM EST Office Visit Ophthalmology, [facility] [address] [place] [id number] Mulugeta Hodges, [address] [place] [address] 07/27/2023 3:00 PM EDT Office Visit Cardiology, [facility] [address] [place] [address] Laquita Leija CRNP [address] [place] [address] 07/31/2023 1:30 PM EDT Nurse Only Ancillary [address] [place] [address] Hank, Nurse [address] [place] [address] 09/06/2023 10:00 AM EDT Office Visit Sleep Disorders Ctr [facility] [address] [facility] [place] [phone] Aminata Quiroz CRNP [address] [place] [address] Scheduled Procedures Name Priority Associated Diagnoses Date/Ti [...] Additional history exists CKD PHOS USE SMARTSET [id number] 04/26/2023 02/0 09/2022, 04/21/2021, 12/06/2019, Additional history exists Diabetic Foot Exam 04/26/2023 04/26/2022, 0 07/22/2021, 07/21/2020, Additional history exists HbA1c 04/29/2023 10/27/2022, 020 09/2022, 04/21/2021, Additional history exists DXA Scan 07/24/2023 07/23/2020, 07/20, 03/25/2013 Depression Screening 07/27/2023 07/26/2022 GFR 08/04/2023 02/03/2023, 08, 04/26/2022, Additional history exists Diabetic Eye Exam 08/11/2023 08/10/2022, , 06/23/2021, Additional history exists CKD HGB USE SMARTSET 52213 02/04/202402/03, 02/03/2023, 10/27/2022, Additional history exists O2 [...] this encounter Medical Devices Implanted Type Area Tar Man Device Identifier Shelf Expiration Date Model / Serial / Lot Gynecare Tvt Device Implanted:Qty: 1 on 06/18/2013 at OR [facility] N/A: Bladder 02/17/2016 [id number] / / [id number] documented as of this encounter Visit Diagnoses Diagnosis Obstructive sleep apnea- Primary Obstructive sleep apnea (adult) (pediatric) Nocturnal hypoxemia Hypoxemia COPD, group D, by GOLD 2017 classification (HCC) Centrilobular emphysema (HCC) Other emphysema Tobacco use disorder Pulmonary hypertension (HCC) Other chronic pulmonary heart diseases Hypertension associated with stage 3b chronic kidney disease due to type 2 diabetes mellitus (HCC) Chronic bronchitis, unspecified chronic bronchitis type (HCC) documented in this encounter Care Teams Plant Technician Relationship Specialty Start Date End Date Sandra Rasheed MD [address] [place] [address] [place] [address] PCP - General Family Medicine 06/05/15 documented as of this encounter
--- OUTSIDE RECORDS SUMMARY | 2023-06-01 06:51 | External Medical Summary | Summary of Care ---
Author Name Unknown Organization [facility] Address [address] [place] [address] Phone [phone] Care Team Providers Care Educational Psychology Professor Name Role Phone Sandra Rasheed MD Primary Care Provide r Reason for Visit * Reason Onset Date Comments Test Results 02/23/2023 Encounter Details Date Type Department Care Team (Late st Contact Info) Description 02/23/2023 Telephone Ancillary [address] [place] [address] Sandra Rasheed MD [address] [place] [address] [place] [address] Test Results Allergies Active Allergy Reactions Criticality Noted Date Comments Influenza Vaccines 01/06/2015 Had flu symptoms x 1 month after injection Iodinated Contrast Media High 09/01/2016 Hives 48 hours post cardiac cath. No respiratory symptoms Sulfa Antibiotics Unknown 02/22/2013 documented as of this encounter (statuses as of 03/01/2023) Medications Medication Sig Dispensed Refills Start Date End Date Status ASPIRIN 81 MG PO TABS Take by mouth at bedtime. 0 Active Cholecalciferol 1000 UNITS Capsule Take 1 Capsule by mouth at bedtime. 30 Cap 3 09/09/2016 Active meclizine (ANTIVERT) 25 MG TabletIndications:Gi daren script for 8 tablets to use x 5 days at [facility] 06-14-18 Take 1 Tab by mouth 3 times a day as needed for Dizziness. Indications: Given script for 8 tablets to use x 5 days at [facility] 06-14-18 90 Tab 0 10/31/2018 Active [...] than 8.0% ([facility]) TAKE ONE TABLET BY MOUTH EVERY MORNING 100 Tablet 1 09/15/2022 4 Active Metoprolol Tartrate 25 MG Oral Tablet (Lopressor)Indicatio ns:Hypertensive kidney disease with stage 3b chronic kidney disease ([facility]),Hypertension with goal blood pressure less [...] 3 12/26/2022 4 Active OneTouch Delica Plus [id number] :Type 2 diabetes mellitus with hemoglobin A1c [...] as of this encounter (statuses as of 03/01/2023) Active Problems Problem Noted Date Diagnosed Date [...] nodule 08/14/2019 Coronary artery disease invo lving [place] coronary artery of [place] heart without angina pectoris 08/30/2018 Diabetes mellitus [...] as of this encounter (statuses as of 03/01/2023) Resolved Problems Problem Noted Date Diagnosed Date [...] as of this encounter (statuses as of 03/01/2023) Immunizations Name Administration Dates Next Due HEP [...] encounter Miscellaneous Notes * Telephone Encounter - Jelly Mills CRNP - 02/23/2023 1:36 PM EST Noted, will call her and review MRI results DIPAK Currie * Telephone Encounter - Cha Mcclendon RN - 02/23/2023 1:00 PM EST Patient called states she did see her MRI on my and wasn't sure what that meant. Patient continuesto have discomfort across the abdomen. I counseled patient I will message. Patient also has noticed that her glipizide is not digesting she did pass it with a BM and it was still whole. Message sent to provider to discuss results and advice. Reason for Call: Test Results Contact: Telephone Call Contact Type: Test Results Outcome: see note Face to face time spent with Patient (minutes): 0 Total Time including non face to face (minutes): 20 documented in this encounter Plan of Treatment Upcoming Encounters Date Type Department Care Team (Late st Contact Info) Description 03/24/2023 1:00 PM EST Office Visit Gastroenterology [address] [place] [address] Jelly Mills CRNP [address] [place] [address] 05/02/2023 1:40 PM EST Office Visit Family Medicine [address] [place] [phone] Sandra Rasheed MD [address] [place] [address] [place] [address] 05/10/2023 11:30 AM EST Office Visit Ophthalmology, [facility] [address] [place] [address] Mulugeta Hodegs, [address] [place] [address] 07/27/2023 3:00 PM EDT Office Visit Cardiology, [facility] [address] [place] [address] Laquita Leija CRNP [address] [place] [address] 07/31/2023 1:30 PM EDT Nurse Only Ancillary [address] [place] [address] Hank, Nurse [address] [place] [address] 09/06/2023 10:00 AM EDT Office Visit Sleep Disorders Ctr [facility] [address] [place] [phone] Aminata Quiroz CRNP [address] [place] [address] 02/28/2024 11:00 AM EST Imaging Radiology [address] [place] [address] Scheduled Procedures Name Priority Associated Diagnoses Date/Ti [...] Additional history exists CKD PHOS USE SMARTSET 20341 04/26/202309/2022, 04/21/2021, 12/06/2019, Additional history exists Diabetic Foot Exam 04/26/2023 04/26/2022, 0 07/22/2021, 07/21/2020, Additional history exists HbA1c 04/29/2023 10/27/2022, 0209/2022, 04/21/2021, Additional history exists DXA Scan 07/24/2023 07/23/2020, 07/20, 03/25/2013 Depression Screening 07/27/2023 07/26/2022 GFR 08/04/2023 02/03/2023, 08, 04/26/2022, Additional history exists Diabetic Eye Exam 08/11/2023 08/10/2022, , 06/23/2021, Additional history exists CKD HGB USE SMARTSET 00173 02/04/202402/03, 02/03/2023, 10/27/2022, Additional history exists O2 [...] this encounter Medical Devices Implanted Type Area Certified Pharmacist Assistant Device Identifier Shelf Expiration Date Model / Serial / Lot Gynecare Tvt Device Implanted:Qty: 1 on 06/18/2013 at OR [facility] N/A: Bladder 02/17/2016 [id number] / / [id number] documented as of this encounter Care Teams Educational Psychology Professor Relationship Specialty Start Date End Date Sandra Rasheed MD [address] [place] [address] [place] [address] PCP - General Family Medicine 06/05/15 documented as of this encounter
--- OUTSIDE RECORDS SUMMARY | 2023-06-01 06:51 | External Medical Summary | Summary of Care ---
Author Name Unknown Organization [facility] Address [address] [place] [address] Phone [phone] Care Team Providers Care Brand Marketing Manager Name Role Phone Sandra Rasheed MD Primary Care Provide r Reason for Visit * Reason Comments Follow Up Sleep Apnea COPD Emphysema Nocturnal Hypoxemia Lung Nodule Encounter Details Date Type Department Care Team (Latest Contact Info) Description 02/22/2023 3:30 PM EST Office Visit Sleep Disorders Ctr [facility] [address] [place] [phone] Aminata Quiroz CRNP [address] [facility] [address] Obstructive sleep apnea*; Nocturnal hypoxemia; COPD, group D, by GOLD 2017 classification ([facility]); Centrilobular emphysema ([facility]); Tobacco use disorder; Pulmonary hypertension ([facility]); Hypertension associated with stage 3b chronic kidney disease due to type 2 diabetes mellitus ([facility]); Chronic bronchitis, unspecified chronic bronchitis type ([facility]) Allergies Active Allergy Reactions Criticality Noted [...] tablets to use x 5 days at [facility] 06-14-18 Take 1 Tab by mouth 3 times a day as needed for Dizziness. Indications: Given script for 8 tablets to use x 5 days at [facility] 06-14-18 90 Tab 0 9 [...] 3 3 024 Active OneTouch Delica Plus [id number] ns:Type 2 diabetes mellitus with hemoglobin A1c [...] Strip 2 3 025 Active Nebulizer/Tubing/M outhpiece KitIndications:SPONSORSHIP MANAGER D, group D, by GOLD 2017 classification ([facility] [...] 2017 classification ([facility]) Inhale 1 Puff by mouth in [...] nodule 08/14/2019 Coronary artery disease invo lving [place] coronary artery of [place] heart without angina pectoris 08/30/2018 Diabetes mellitus [...] from the original note were not included. [facility] Mildred [...] PAP machine and that they need to cone picker her unit. She continues to use CPAP [...] 2017 classification ([facility]) J44.9 Allergy to iodinated contrast Z91.041 Type 2 diabetes mellitus with hemoglobin A1c goal of less than 8.0% ([facility]) E11.9 Gastric ulcer K25.9 MGUS (monoclonal gammopathy of unknown significance) D47.2 Centrilobular emphysema ([facility]) J43.2 Nocturnal hypoxemia G47.34 Diabetes mellitus type 2 with peripheral artery disease (HCC) E11.51 Coronary artery disease involving [place] coronary artery of [place] heart without angina pectoris I25.10 Lung nodule R91.1 Gastro-esophageal reflux disease without esophagitis K21.9 Type 2 diabetes mellitus with stage 3b chronic kidney disease, without long-term current use of insulin (HCC) E11.22, N18.32 Hypertensive kidney disease with stage 3b chronic kidney disease (HCC) I12.9, N18.32 Pulmonary hypertension (HCC) I27.20 Type 2 diabetes mellitus with diabetic cataract ([facility]) E11.36 Dyslipidemia, goal LDL below 70 [...] tablets to use x 5 days at [facility] 06-14-18 Cholecalciferol 1000 UNITS Capsule [...] smoker, 1/2-3/4 ppd Exercise: none 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 Current pressures on machine are incorrectly set and overnight oximetry on these settings suggestedhypoxemia. New CPAP order placed with auto settings 10-20 to be submitted through [employer] to [facility] at the patient's request. [...] needed. DIPAK [facility] I spent a total of Greater than [...] Pneumovax: 02/22/13 Prevnar: 06/15/15 COVID 19: no [place] Sleepiness Scale Question 02/22/2023 3:15 PM EST [...] 1:40 PM EST Office Visit Family Medicine [address] [place] [phone] Sandra Rasheed MD [address] [place] [address] [place] [address] 05/10/2023 11:30 AM EST Office Visit Ophthalmology, [facility] [address] [place] [address] Mulugeta Hodges, [address] [place] [address] 07/27/2023 3:00 PM EDT Office Visit Cardiology, [facility] [address] [place] [address] Laquita Leija CRNP [address] [place] [address] 07/31/2023 1:30 PM EDT Nurse Only Ancillary [address] [place] [address] Hank, Nurse [address] [place] [address] 09/06/2023 10:00 AM EDT Office Visit Sleep Disorders Ctr [facility] [address] [facility] [place] [phone] Aminata Quiroz CRNP [address] [place] [address] Scheduled Procedures Name Priority Associated Diagnoses Date/Ti [...] Additional history exists CKD PHOS USE SMARTSET 24179 04/26/2023 02/0 09/2022, 04/21/2021, 12/06/2019, Additional history exists Diabetic Foot Exam 04/26/2023 04/26/2022, 0 07/22/2021, 07/21/2020, Additional history exists HbA1c 04/29/2023 10/27/2022, 020 09/2022, 04/21/2021, Additional history exists DXA Scan 07/24/2023 07/23/2020, 07/20, 03/25/2013 Depression Screening 07/27/2023 07/26/2022 GFR 08/04/2023 02/03/2023, 08, 04/26/2022, Additional history exists Diabetic Eye Exam 08/11/2023 08/10/2022, , 06/23/2021, Additional history exists CKD HGB USE SMARTSET 99698 02/04/202402/03, 02/03/2023, 10/27/2022, Additional history exists O2 [...] this encounter Medical Devices Implanted Type Area Tooling Manager Device Identifier Shelf Expiration Date Model / Serial / Lot Gynecare Tvt Device Implanted:Qty: 1 on 06/18/2013 at OR [facility] N/A: Bladder 02/17/2016 [id number] / / [id number] documented as of this encounter Visit Diagnoses [...] (HCC) documented in this encounter Care Teams Brand Marketing Manager Relationship Specialty Start Date End Date Sandra Rasheed MD [address] [place] [address] [place] [address] PCP - General Family Medicine 06/05/15 documented as of this encounter
--- OUTSIDE RECORDS SUMMARY | 2023-06-01 06:51 | External Medical Summary | Summary of Care ---
Author Name Unknown Organization [facility] Address [address] [place] [address] Phone [phone] Care Team Providers Care [employer] Flatbed Driver Name Role Phone Sandra Rasheed MD Primary Care Provide r Encounter Details Date Type Department Care Team (Late st Contact Info) Description 02/23/2023 Telephone Pulmonary Medicine, [facility] [address] [facility] [place] [address] Aminata Quiroz CRNP [address] [facility] [place] [address] Allergies Active Allergy Reactions Criticality Noted Date Comments Influenza Vaccines 01/06/2015 Had flu symptoms x 1 month after injection Iodinated Contrast Media High 09/01/2016 Hives 48 hours post cardiac cath. No respiratory symptoms Sulfa Antibiotics Unknown 02/22/2013 documented as of this encounter (statuses as of 02/23/2023) Medications Medication Sig Dispensed Refills Start Date End Date Status ASPIRIN 81 MG PO TABS Take by mouth at bedtime. 0 Active Cholecalciferol 1000 UNITS Capsule Take 1 Capsule by mouth at bedtime. 30 Cap 3 09/09/2016 Active meclizine (ANTIVERT) 25 MG TabletIndications:Gi daren script for 8 tablets to use x 5 days at [facility] 06-14-18 Take 1 Tab by mouth 3 times a day as needed for Dizziness. Indications: Given script for 8 tablets to use x 5 days at [facility] 06-14-18 90 Tab 0 10/31/2018 Active [...] hemoglobin A1c goal of less than 8.0% ([facility]) TAKE ONE TABLET BY MOUTH [...] 3 12/26/2022 4 Active OneTouch Delica Plus [id number] :Type 2 diabetes mellitus with hemoglobin A1c goal of less than 8.0% ([facility]) Use to test blood sugar up to twice daily. Dx E11.9 200 Each 3 01/11/2023 Active OneTouch Verio In Vitro Strip (Glucose Blood)Indications:Ty pe 2 diabetes mellitus with hemoglobin A1c goal of less than 8.0% ([facility]) USE TO TEST BLOOD SUGAR UP TO TWICE DAILY 200 Strip 2 02/22/2023 5 Active Nebulizer/Tubing/Sindy thpiece KitIndications:COPD, group D, by GOLD 2017 classification ([facility]) Replacement requested as hers isn't [...] COPD, group D, by GOLD 2017 classification ([facility]) 1 dose inhaled every evening. Rinse mouth after use. 90 Each 3 02/22/2023 Active documented as of this encounter (statuses as of 02/23/2023) Active Problems Problem Noted Date Diagnosed Date [...] Coronary artery disease invo lving [place] coronary artery of [place] heart without angina pectoris 08/30/2018 Diabetes mellitus [...] as of this encounter (statuses as of 02/23/2023) Resolved Problems Problem Noted Date Diagnosed Date [...] as of this encounter (statuses as of 02/23/2023) Immunizations Name Administration Dates Next Due HEP [...] encounter Miscellaneous Notes * Telephone Encounter - Quintin Costa OSA - 02/23/2023 8:36 AM EST Orders in 02/23 new cpap C documented in this encounter Plan of Treatment Upcoming Encounters Date Type Department Care Team (Late st Contact Info) Description 05/02/2023 1:40 PM EST Office Visit Family Medicine [address] [place] [phone] Sandra Rasheed MD [address] [place] [address] [place] [address] 05/10/2023 11:30 AM EST Office Visit Ophthalmology, [facility] [address] [place] [address] Mulugeta Hodges DO 132 [place] [address] 07/27/2023 3:00 PM EDT Office Visit Cardiology, [facility] [address] [place] [address] Laquita Leija CRNP [address] [address] 07/31/2023 1:30 PM EDT Nurse Only Ancillary [place] [address] [place] [address] Movphillip, Nurse [address] [place] [address] 09/06/2023 10:00 AM EDT Office Visit Sleep Disorders Ctr [facility] [address] [place] [phone] Aminata Quiroz CRNP [address] [place] [address] Scheduled Procedures Name Priority Associated Diagnoses Date/Ti [...] Additional history exists CKD PHOS USE SMARTSET 73253 04/26/2023 02/0 09/2022, 04/21/2021, 12/06/2019, Additional history exists Diabetic Foot Exam 04/26/2023 04/26/2022, 0 07/22/2021, 07/21/2020, Additional history exists HbA1c 04/29/2023 10/27/2022, 09/2022, 04/21/2021, Additional history exists DXA Scan 07/24/2023 07/23/2020, 07/20, 03/25/2013 Depression Screening 07/27/2023 07/26/2022 GFR 08/04/2023 02/03/2023, 10/18, 04/26/2022, Additional history exists Diabetic Eye Exam 08/11/2023 08/10/2022, , 06/23/2021, Additional history exists CKD HGB USE SMARTSET 84158 02/04/202402/03, 02/03/2023, 10/27/2022, Additional history exists O2 [...] this encounter Medical Devices Implanted Type Area Car Shunter Device Identifier Shelf Expiration Date Model / Serial / Lot Gynecare Tvt Device Implanted:Qty: 1 on 06/18/2013 at OR [facility] N/A: Bladder 02/17/2016 [id number] / / [id number] documented as of this encounter Care Teams [employer] Flatbed Driver Relationship Specialty Start Date End Date Sandra Rasheed MD [address] [place] [address] [place] [address] PCP - General Family Medicine 06/05/15 documented as of this encounter
--- OUTSIDE RECORDS SUMMARY | 2023-06-01 06:51 | External Medical Summary | Summary of Care ---
Author Name Unknown Organization [facility] Address [address] [place] [address] Phone [phone] Care Team Providers Care Laborer/Key Man Name Role Phone Sandra Rasheed MD Primary Care Provide r Reason for Referral * Precert (Within 10 days (routine)) - Pending Review Specialty Diagnoses / Procedures Referred By Monse orellana Referred To Contact Radiology Diagnoses IPMN (intraductal papillary mucinous neoplasm) Procedures MRI PANCREAS W WO CONTRAST Jelly Mills CRNP [address] [place] [address] Referral ID Status Reason Start Date Expiration Date V isits Requested Visits Authorized [id number] Pending Review 02/23/[phone] Encounter Details Date Type Department Care Team (Late st Contact Info) Description 02/23/2023 Orders Only Gastroenterology, [facility] [address] [place] [address] Jelly Mills CRNP [address] [place] [address] IPMN (intraductal papillary mucinous neoplasm)* Allergies Active Allergy Reactions Criticality Noted Date [...] days at [facility] 06-14-18 Take 1 Tab by mouth 3 times a day as needed for Dizziness. Indications: Given script for 8 tablets to use x [address] [facility] 06-14-18 90 Tab 0 10/31/2018 Active [...] 3 12/26/2022 4 Active OneTouch Delica Plus [id number] :Type 2 diabetes mellitus with hemoglobin A1c [...] nodule 08/14/2019 Coronary artery disease invo lving [place] coronary artery of [place] heart without angina pectoris 08/30/2018 Diabetes mellitus [...] 1:40 PM EST Office Visit Family Medicine [address] [place] [phone] Sandra Rasheed MD [address] [place] [address] [place] [address] 05/10/2023 11:30 AM EST Office Visit Ophthalmology, [facility] [address] [place] [address] Mulugeta Hodges, [address] [place] [address] 07/27/2023 3:00 PM EDT Office Visit Cardiology, [facility] 132 [facility] [place] [address] Laquita Leija CRNP [address] [facility] [place] [address] 07/31/2023 1:30 PM EDT Nurse Only Ancillary [address] [place] [address] [place], Nurse [address] [place] [address] 09/06/2023 10:00 AM EDT Office Visit Sleep Disorders Ctr [facility] 132 [facility] [place] [phone] Aminata Quiroz CRNP [address] [facility] [place] [address] Scheduled Orders Name Type Priority Associated Diagnoses Orde r Schedule MRI PANCREAS W WO CONTRAST Medical Imaging Routine IPMN (intraductal papillary mucinous neoplasm) Ordered: 02/23/2023 Scheduled Procedures Name Priority Associated Diagnoses Date/Ti [...] Additional history exists CKD PHOS USE SMARTSET 88488 04/26/2023 02/0 09/2022, 04/21/2021, 12/06/2019, Additional history exists Diabetic Foot Exam 04/26/2023 04/26/2022, 0 07/22/2021, 07/21/2020, Additional history exists HbA1c 04/29/2023 10/27/2022, 09/2022, 04/21/2021, Additional history exists DXA Scan 07/24/2023 07/23/2020, 07/20, 03/25/2013 Depression Screening 07/27/2023 07/26/2022 GFR 08/04/2023 02/03/2023, 10/18, 04/26/2022, Additional history exists Diabetic Eye Exam 08/11/2023 08/10/2022, , 06/23/2021, Additional history exists CKD HGB USE SMARTSET 53440 02/04/202402/03, 02/03/2023, 10/27/2022, Additional history exists O2 [...] this encounter Medical Devices Implanted Type Area Quilt Sewer Device Identifier Shelf Expiration Date Model / Serial / Lot Gynecare Tvt Device Implanted:Qty: 1 on 06/18/[address] [facility] N/A: Bladder 02/17/2016 [id number] / / [id number] documented as of this encounter Visit Diagnoses Diagnosis IPMN (intraductal papillary mucinous neoplasm)- Primary Neoplasm of unspecified nature of digestive system documented in this encounter Care Teams Laborer/Key Man Relationship Specialty Start Date End Date Sandra Rasheed MD [address] [place] [address] [place] [address] PCP - General Family Medicine 06/05/15 documented as of this encounter
--- OUTSIDE RECORDS SUMMARY | 2023-06-01 06:52 | External Medical Summary | Summary of Care ---
Author Name Unknown Organization [facility] Address [address] [place] [address] Phone [phone] Care Team Providers Care Business Leader Name Role Phone Sandra Rasheed MD Primary Care Provide r Reason for Visit * Reason Comments Rheum Follow Up Recheck, "pain in up per abd" * Evaluate & Treat - Unlimited Visits (Within 10 days (routine)) - Authorized Specialty Diagnoses / Procedures Referred By Monse orellana Referred To Contact Gastroenterology Diagnoses Change in stool Susy Ochoa PA-C [address] [place] [address] [place] [id number] Referral ID Status Reason Start Date Expiration Date Visits Requested Visits Authorized [id number] Authorized Specialty Services Required 10/27/[phone] Encounter Details Date Type Department Care Team (Late st Contact Info) Description 02/03/2023 12:00 PM EST Office Visit Gastroenterology [address] [place] [address] Jelly Mills CRNP [address] [place] [address] Fatty liver* Allergies Active Allergy Reactions Criticality Noted Date Comments Influenza Vaccines 01/06/2015 Had flu symptoms x 1 month after injection Iodinated Contrast Media High 09/01/2016 Hives 48 hours post cardiac cath. No respiratory symptoms Sulfa Antibiotics Unknown 02/22/2013 documented as of this encounter (statuses as of 02/03/2023) Medications Medication Sig Dispensed Refills Start Date End Date Status ASPIRIN 81 MG PO TABS Take by mouth at bedtime. 0 Active Cholecalciferol 1000 UNITS Capsule Take 1 Capsule by mouth at bedtime. 30 Cap 3 7 Active meclizine (ANTIVERT) 25 MG TabletIndications:Ami little script for 8 tablets to use x 5 days at [facility] 06-14-18 Take 1 Tab by mouth 3 times a day as needed for Dizziness. Indications: Given script for 8 tablets to use x 5 days at [facility] 06-14-18 90 Tab 0 9 Active [...] 54 g 3 3 05/31/19 24 Active Glucose Blood In Vitro StripIndications:Ty pe 2 diabetes mellitus with hemoglobin A1c goal of less than 8.0% (HCC) USE TO TEST BLOOD SUGAR UP TO TWICE DAILY 200 Strip 3 2 03/02/20 23 Active Torsemide 10 MG Oral Tablet (Demadex)Indication [...] 100 Tablet 4 3 10/24/19 24 Active Arnuity Ellipta 200 MCG/ACT Inhalation Aerosol Powder Breath Activated (fluticasone Furoate)Indications :COPD, group D, by GOLD 2017 classification ([facility]) Inhale 1 Puff by mouth in the morning. 30 Each 3 3 Active predniSONE 10 MG Oral Tablet (Deltasone)Indicati ons:Pneumonia of right lower lobe due to infectious organism 4 tabs for 2 days, 3 tabs for 2 days, 2 tabs for 2 days 1 tab for 2 days with food 30 Tablet 0 3 Active Anoro Ellipta 62.5-25 MCG/ACT Inhalation Aerosol Powder Breath Activated (umeclidinium-vilan terol) Inhale 1 Puff by mouth every evening. 60 Each 2 3 Active Spironolactone 25 MG Oral Tablet (Aldactone)Indicati [...] 3 12/26/19 24 Active OneTouch Delica Plus [id number] s:Type 2 diabetes mellitus with hemoglobin A1c goal of less than 8.0% ([facility]) Use to test blood sugar up to twice daily. Dx E11.9 200 Each 3 3 Active Gabapentin 300 MG Oral Capsule (Neurontin) Take 1 Capsule by mouth at bedtime. Pt is taking three times a day 0 02/04/20 23 Discontinued documented as of this encounter (statuses as of 02/03/2023) Active Problems Problem Noted Date Diagnosed Date [...] nodule 08/14/2019 Coronary artery disease invo lving [place] coronary artery of [place] heart without angina pectoris 08/30/2018 Diabetes mellitus [...] as of this encounter (statuses as of 02/03/2023) Resolved Problems Problem Noted Date Diagnosed Date [...] as of this encounter (statuses as of 02/03/2023) Immunizations Name Administration Dates Next Due HEP [...] Sign Reading Time Taken Comments Blood Pressure 140/70 02/03/2023 12:09 PM EST Pulse 84 02/03/2023 12:09 PM EST Temperature 36.6 C (97.8 F) 02/03/2023 12:[address] Respiratory Rate 18 02/03/2023 12:09 PM EST Oxygen Saturation 100% 02/03/2023 12:09 PM EST Inhaled Oxygen Concentration - - Weight 85.3 kg (188 lb) 02/03/2023 12:09 PM EST Height - - Body Mass Index 33.84 08/30/2022 12:19 PM EDT documented in this encounter Progress Notes * Jelly Mills CRNP - 02/03/2023 11:41 AM EST DATE OF SERVICE: 02/03/23 REFERRING PHYSICIAN: Alverto Sykes DO CC: F/U [...] leg edema. 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 Sleeping pattern off. Denies SOB, CP, [...] No rectal bleeding. No n/v, leg edema. Past Medical History: Diagnosis Date COPD (chronic obstructive pulmonary disease) ([facility]) COVID-19 10/25/2021 CRVO (central retinal vein occlusion) OS Dyslipidemia, goal LDL below 130 Hypercholesteremia Hypertension Hypertension goal BP (blood pressure) < 140/90 Hypertensive retinopathy OU Impaired fasting glucose 02/22/2013 Lung nodule PAD (peripheral artery disease) ([facility]) 07/22/2014 Pneumonia 06/08/2015 [facility] Postmenopausal atrophic vaginitis 06/05/2013 Preoperative respiratory examination 02/27/2020 Retinal edema OS Sleep apnea, obstructive Tobacco use disorder Tubular adenoma of colon Urge incontinence of urine 06/05/2013 Urinary incontinence without sensory awareness Urinary, incontinence, stress female Vitreous hemorrhage of left eye (HCC) Family History Problem Relation Age of Onset [...] performed by Lauren Kenny MD at ENDOSCOPY [facility] COLONOSCOPY, DIAGNOSTIC (RECTUM) 09/16/2019 diverticulosis sigmoid and descending colon/biopsies show serrated adenomatous polyps/recall 6 months/COLONOSCOPY FLEXIBLE PROXIMAL DIAGNOSTIC performed by Lauren Kenny MD at ENDOSCOPY [facility] COLONOSCOPY, DIAGNOSTIC (RECTUM) N/A 02/27/2020 adenomatous polyp, diverticulosis, repeat 3 yrs / COLONOSCOPY FLEXIBLE PROXIMAL DIAGNOSTIC performed by Lauren Kenny MD at ENDOSCOPY [facility] COLONOSCOPY, DIAGNOSTIC (RECTUM) N/A 07/13/2022 [facility], colonoscopy, diverticulosis in sigmoid / no specimens collected / 5 year recall / CYSTOSCOPY 06/18/2013 CYSTOURETHROSCOPY performed by Charlee Handley MD at OR [facility] EGD, FLEXIBLE, DIAGNOSTIC 02/20/2017 mild stomach irritation, gastric ulcers, hiatal hernia, repeat 3 mo/ESOPHAGOGASTRODUODENOSCOPY (EGD), FLEXIBLE, TRANSORAL, DIAGNOSTIC performed by Maye Zavala MD at ENDOSCOPY [facility] EGD, FLEXIBLE, DIAGNOSTIC 05/29/2017 hiatal hernia/ESOPHAGOGASTRODUODENOSCOPY (EGD), FLEXIBLE, TRANSORAL, DIAGNOSTIC performed by MD Sepideh at ENDOSCOPY [facility] EGD, FLEXIBLE, DIAGNOSTIC N/A 07/13/2022 [facility], EGD normal scope / no specimens collected [...] DR. HODGES REMOVAL OF APPENDIX 1959 [facility] - Dr JAMIA Wang REMOVAL OF OVARY/OVIDUCT(S) bilateral - PAH REMOVAL OF TONSILS, UNDER AGE [age] yo [facility] - Dr. JAMIA Wang REMOVE GALLBLADDER at 61yrs old lap REPAIR ARM TENDON/MUSCLE 1998 right side REPAIR BLADDER DEFECT 06/18/2013 VAGINAL SLING PROCEDURE FOR STRESS INCONTINENCE performed by Charlee Handley MD at OR [facility] REPAIR INITIAL INCISIONAL OR VENTRAL HERNIA; REDUCIBLE [...] morning. 1 tab daily in the winter. Gabapentin 300 MG Oral Capsule (Neurontin) Take 1 Capsule by mouth at bedtime. Pt is taking three times a day (Patient not taking: Reported on 01/25/2023) Calcium Carb-Cholecalciferol 600-1000 MG-UNIT Oral Capsule Take [...] OF BREATH, OR WHEEZING 54 g 3 Glucose Blood In Vitro Strip USE TO TEST BLOOD SUGAR UP TO TWICE DAILY 200 Strip 3 Torsemide 10 MG Oral Tablet (Demadex) TAKE ONE TABLET BY MOUTH ONCE DAILY TAKE ONE ADDITIONAL TABLET BY MOUTH IN THE AFTERNOON ON MONDAY, MONDAY AND MONDAY 135 Tablet 1 Losartan Potassium 50 MG Oral Tablet (Cozaar) TAKE ONE TABLET BY MOUTH EVERY DAY 100 Tablet 4 Arnuity Ellipta 200 MCG/ACT Inhalation Aerosol Powder Breath Activated (fluticasone Furoate) Inhale1 Puff by mouth in the morning. 30 Each 3 predniSONE 10 MG Oral Tablet (Deltasone) 4 tabs for 2 days, 3 tabs for 2 days, 2 tabs for 2 days 1 tab for 2 days with food 30 Tablet 0 Anoro Ellipta 62.5-25 MCG/ACT Inhalation Aerosol Powder Breath Activated (umeclidinium-vilanterol) Inhale 1 Puff by mouth every evening. 60 Each 2 Spironolactone 25 MG Oral Tablet (Aldactone) TAKE [...] the morning. 90Capsule 3 OneTouch Delica Plus [id number] Use to test blood sugar up to twice daily. Dx E11.9 200 Each 3 No current facility-administered medications for this visit. REVIEW OF SYSTEMS: See HPI above; All other findings negative. EXAM: Filed Vitals: 02/03/23 1209 BP: 140/70 Pulse: 84 Resp: 18 Temp: 36.6 C (97.8 F) TempSrc: Infrared SpO2: 100% Weight: 85.3 kg (188 lb) GENERAL: Obese 74 year old female, in [...] SPEP suspicious for MGUS, followed by Heme/Onc - CBC,CMP, PT/INR - Completed Hep A and B vaccination series in August 2017 - Decreased Prilosec to 20mg daily given renal disease (Cr 1.4-1.6) - Last EGD 06/2022: normal; stomach bx (-) for IM, dysplasia, malignancy, Hpylori. - Last Colonoscopy 06/2022: Diverticulosis sigmoid colon - Repeat U/S liver to r/o cirrhosis and if cirrhosis is found to r/o HCC. - Start daily bowel regimen: Miralax 17g + Metamucil 2 tsp - Low salt (2g diet), no more than 4g APAP. Advised to lose weight via lifestyle and dietary changes. Avoidance of ETOH. RETURN TO CLINIC: 6 months; and sooner Lindsey Ariza [facility] Gastroenterology, [facility] documented in this encounter Nursing Notes * Lynn Frye LPN - 02/03/2023 12:07 PM EST Chief Complaint Patient presents with Rheum Follow Up Recheck, "pain in upper abd" documented in this encounter Plan of Treatment Upcoming Encounters Date Type Department Care Team (Late st Contact Info) Description 02/06/2023 9:15 AM EST Imaging Radiology [address] [place] [address] 02/22/2023 3:30 PM EST Office Visit [facility] [place] [phone] Aminata Quiroz CRNP [address] [place] [address] 05/02/2023 1:40 PM EST Office Visit Family Medicine [address] [place] [address] Sandra Rasheed MD [address] [place] [address] [place] [address] 05/10/2023 11:30 AM EST Office Visit Ophthalmology, [facility] [address] [facility] [place] [address] Mulugeta Hodges DO [address] [place] [address] 07/27/2023 3:00 PM EDT Office Visit Cardiology, [facility] [address] [facility] [place] [address] Laquita Leija CRNP [address] [place] [address] 07/31/2023 1:30 PM EDT Nurse Only Ancillary [address] [place] [address] [place], Nurse Annual [address] [place] [address] Pending Results Name Type Priority Associated Diagnoses Date /Time CBC WITH WBC DIFFERENTIAL Lab Routine Other cirrhosis of liver (HCC) 02/03/2023 12:34 PM EST COMPREHENSIVE METABOLIC PANEL Lab Routine Other cirrhosis of liver (HCC) 02/03/2023 12:34 PM EST PT INR Lab Routine Other cirrhosis of liver (HCC) 02/03/2023 12:34 PM EST CBC Lab Routine 02/03/2023 12: 34 PM EST DIFFERENTIAL, AUTOMATED Lab Routine 1 04/05/2022 12:34 PM EST Scheduled Orders Name Type Priority Associated Diagnoses Orde r Schedule US ABDOMEN LIMITED Medical Imaging Routine Other cirrhosis of liver (HCC) Ordered: 02/03/2023 Scheduled Procedures Name Priority Associated Diagnoses Date/Ti [...] Additional history exists CKD PHOS USE SMARTSET 52662 04/26/2023/0 09/2022, 04/21/2021, 12/06/2019, Additional history exists Diabetic Foot Exam 04/26/2023 04/26/2022, 0 07/22/2021, 07/21/2020, Additional history exists GFR 04/29/2023 10/27/2022, 02/0 09/2022, 12/20/2021, Additional history exists HbA1c 04/29/2023 10/27/2022, 02/0 09/2022, 04/21/2021, Additional history exists DXA Scan 07/24/2023 07/23/2020, 07/20, 03/25/2013 Depression Screening 07/27/2023 07/26/2022 Diabetic Eye Exam 08/11/2023 08/10/2022, , 06/23/2021, Additional history exists CKD HGB USE SMARTSET 97357 10/28/202310/27, 10/27/2022, 04/26/2022, Additional history exists O2 ASSESSMENT COMPLETED IN PAST YEAR FOR COPD 01/26/2024 01/25/2023 COLONOSCOPY-EVERY 3 YRS AGES 18-100 07/13/2025 07/13/2022, [...] this encounter Medical Devices Implanted Type Area Dairy Worker Device Identifier Shelf Expiration Date Model / Serial / Lot Gynecare Tvt Device Implanted:Qty: 1 on 06/18/2013 at OR [facility] N/A: Bladder 02/17/2016 [id number] / / [id number] documented as of this encounter Visit Diagnoses Diagnosis Fatty liver- Primary Other chronic nonalcoholic liver disease documented in this encounter Care Teams Business Leader Relationship Specialty Start Date End Date Sandra Rasheed MD [address] [place] [address] [place] [phone] PCP - General Family Medicine 06/05/15 documented as of this encounter
--- OUTSIDE RECORDS SUMMARY | 2023-06-01 06:52 | External Medical Summary | Summary of Care ---
Author Name Unknown Organization [facility] Address [address] [place] [address] Phone [phone] Care Team Providers Care Design Printing Machine Setter Name Role Phone Sandra Rasheed MD Primary Care Provide r Reason for Visit * Reason Onset Date Comments Appointment 02/20/2023 Encounter Details Date Type Department Care Team (Late st Contact Info) Description 02/20/2023 [address]phone [address] [place] [address] Juana Akbar, RT (R) Appointment Allergies Active Allergy Reactions Criticality Noted Date Comments Influenza Vaccines 01/06/2015 Had flu symptoms x 1 month after injection Iodinated Contrast Media High 09/01/2016 Hives 48 hours post cardiac cath. No respiratory symptoms Sulfa Antibiotics Unknown 02/22/2013 documented as of this encounter (statuses as of 02/20/2023) Medications Medication Sig Dispensed Refills Start Date End Date Status ASPIRIN 81 MG PO TABS Take by mouth at bedtime. 0 Active Cholecalciferol 1000 UNITS Capsule Take 1 Capsule by mouth at bedtime. 30 Cap 3 09/09/2016 Active meclizine (ANTIVERT) 25 MG TabletIndications:Gi daren script for 8 tablets to use x 5 days at [facility] 06-14-18 Take 1 Tab by mouth 3 times a day as needed for Dizziness. Indications: Given script for 8 tablets to use x 5 days at [facility] 06-14-18 90 Tab 0 10/31/2018 [...] MOUTH EVERY MORNING 100 Tablet 1 09/15/2022 09/15/2023 Active Metoprolol Tartrate 25 MG Oral Tablet (Lopressor)Indicatio ns:Hypertensive kidney disease with stage 3b chronic kidney disease (HCC),Hypertension with goal blood pressure less than 140/80 TAKE ONE-HALF TABLET BY MOUTH TWICE A DAY. 90 Tablet 3 09/09/2022 09/09/2023 Active Ipratropium-Albutero l 0.5-2.5 (3) MG/3ML Inhalation Solution (Duoneb) INHALE ONE VIAL VIA NEBULIZER EVERY 6 HOURS NEEDED FOR DYSPNEA 1080 mL 5 07/26/2022 07/26/2023 Active Albuterol Sulfate HFA 108 (90 Base) MCG/ACT Inhalation Aerosol Solution INHALE TWO PUFFS BY MOUTH EVERY 4 HOURS NEEDED FOR COUGH, FOR SHORTNESS OF BREATH, OR WHEEZING 54 g 3 05/31/2022 05/31/2023 Active Glucose Blood In Vitro StripIndications:Typ e 2 diabetes mellitus with hemoglobin A1c goal of less than 8.0% ([facility]) USE TO TEST BLOOD SUGAR UP TO TWICE DAILY 200 Strip 3 01/21/2022 03/02/2023 Active Torsemide 10 MG Oral Tablet (Demadex)Indications :Hypertension with goal blood pressure less than 140/80,Localized edema TAKE ONE TABLET BY MOUTH ONCE DAILY TAKE ONE ADDITIONAL TABLET BY MOUTH IN THE AFTERNOON ON MONDAY, MONDAY AND MONDAY 135 Tablet 1 09/27/2022 09/27/2023 Active Losartan Potassium 50 MG Oral Tablet (Cozaar)Indications: Hypertension with goal blood pressure less than 140/80 TAKE ONE TABLET BY MOUTH EVERY DAY 100 Tablet 4 10/24/2022 10/24/2023 Active Arnuity Ellipta 200 MCG/ACT Inhalation Aerosol Powder Breath Activated (fluticasone Furoate)Indications: COPD, group D, by GOLD 2017 classification ([facility]) Inhale 1 Puff by mouth in the morning. 30 Each 3 12/01/2022 Active predniSONE 10 MG Oral Tablet (Deltasone)Indicatio ns:Pneumonia of right lower lobe due to infectious organism 4 tabs for 2 days, 3 tabs for 2 days, 2 tabs for 2 days 1 tab for 2 days with food 30 Tablet 0 12/01/2022 Active Anoro Ellipta 62.5-25 MCG/ACT Inhalation Aerosol Powder Breath Activated (umeclidinium-vilant jyoti) Inhale 1 Puff by mouth every evening. 60 Each 2 12/12/2022 Active Spironolactone 25 MG Oral Tablet (Aldactone)Indicatio ns:Hypertension goal BP (blood pressure) < 150/90,Localized edema TAKE ONE TABLET BY MOUTH ON MONDAY, MONDAY, AND MONDAY. TAKE ONE-HALF TABLET ON ALL OTHER DAYS OF THE WEEK 64 Tablet 3 12/19/2022 12/19/2023 Active Atorvastatin Calcium 40 MG Oral Tablet (Lipitor)Indications :Dyslipidemia, goal LDL below 130,Hypertension goal BP (blood pressure) < 150/90 Take 1 Tablet by mouth every day 90 Tablet 3 12/26/2022 12/26/2023 Active Omeprazole 20 MG Oral Capsule Delayed Release (PriLOSEC)Indication s:Hypertension goal BP (blood pressure) < 150/90 Take 1 Capsule by mouth in the morning. 90 Capsule 3 12/26/2022 12/26/2023 Active OneTouch Delica Plus [id number] :Type 2 diabetes mellitus with hemoglobin A1c goal of less than 8.0% ([facility]) Use to test blood sugar up to twice daily. Dx E11.9 200 Each 3 01/11/2023 Active documented as of this encounter (statuses as of 02/20/2023) Active Problems Problem Noted Date Diagnosed Date [...] nodule 08/14/2019 Coronary artery disease invo lving [place] coronary artery of [place] heart without angina pectoris 08/30/2018 Diabetes mellitus [...] as of this encounter (statuses as of 02/20/2023) Resolved Problems Problem Noted Date Diagnosed Date [...] exacerbation 01/22/2016 09/25/2017 Vitreous hemorrhage 05/25/2015 10/11/19 Retinal edema 01/06/2015 09/25/2017 Kidney disease, chronic, [...] as of this encounter (statuses as of 02/20/2023) Immunizations Name Administration Dates Next Due HEP [...] Miscellaneous Notes * Telephone Encounter - Juana Akbar RT (R) - 02/20/2023 12:51 PM EST Name: Mildred Moser Do you have any of the following: Pacemaker, stents, heart valves, aneurysm clips? No Have you ever worked with metal or have you ever gotten metal in your eyes? No Have you had a colonoscopy in the last 30 days? No On dialysis? No Do you have any dermals or body piercing's? No or ? Do you wear an insulin pump or diabetic monitor? no RT Sammi (R) documented in this encounter Plan of Treatment Upcoming Encounters Date Type Department Care Team (Late st Contact Info) Description 02/22/2023 12:15 PM EST Imaging Radiology [address] [place] [address] 02/22/2023 3:30 PM EST Office Visit Sleep Disorders Ctr [address] [place] [address] Aminata Quiroz CRNP [address] [place] [address] 05/02/2023 1:40 PM EST Office Visit Family Medicine [address] [place] [phone] Sandra Rasheed MD [address] [place] [address] [place] [address] 05/10/2023 11:30 AM EST Office [address], [address] [place] [address] Mulugeta Hodges DO [address] [place] [address] 07/27/2023 3:00 PM EDT Office Visit Cardiology, [facility] [address] [place] [address] Laquita Leija CRNP [address] [place] [address] 07/31/2023 1:30 PM EDT Nurse Only Ancillary [address] [place] [address] Nurse Hank [address] [place] [address] Scheduled Procedures Name Priority Associated Diagnoses Date/Ti [...] Additional history exists CKD PHOS USE SMARTSET 96540 04/26/2023 02/0 09/2022, 04/21/2021, 12/06/2019, Additional history exists Diabetic Foot Exam 04/26/2023 04/26/2022, 0 07/22/2021, 07/21/2020, Additional history exists HbA1c 04/29/2023 10/27/2022, 09/2022, 04/21/2021, Additional history exists DXA Scan 07/24/2023 07/23/2020, 07/20, 03/25/2013 Depression Screening 07/27/2023 07/26/2022 GFR 08/04/2023 02/03/2023, 10/18, 04/26/2022, Additional history exists Diabetic Eye Exam 08/11/2023 08/10/2022, , 06/23/2021, Additional history exists CKD HGB USE SMARTSET 23543 02/04/202402/03, 02/03/2023, 10/27/2022, Additional history exists O2 ASSESSMENT COMPLETED IN PAST YEAR FOR COPD 02/04/2024 02/03/2023 COLONOSCOPY-EVERY 3 YRS AGES 18-100 07/13/2025 07/13/2022, [...] this encounter Medical Devices Implanted Type Area Budget Director Device Identifier Shelf Expiration Date Model / Serial / Lot Gynecare Tvt Device Implanted:Qty: 1 on 06/18/2013 at OR [facility] N/A: Bladder 02/17/2016 [id number] / / [id number] documented as of this encounter Care Teams Design Printing Machine Setter Relationship Specialty Start Date End Date Sandra Rasheed MD [address] [place] [address] [place] [phone] PCP - General Family Medicine 06/05/15 documented as of this encounter
--- OUTSIDE RECORDS SUMMARY | 2023-06-01 06:52 | External Medical Summary | Summary of Care ---
Author Name Unknown Organization [facility] Address [address] [place] [address] Phone [phone] Care Team Providers Care Director Of Housing Name Role Phone Sandra Rasheed MD Primary Care Provide r Reason for Visit * Reason Comments Outpatient Testing Encounter Details Date Type Department Care Team (Late st Contact Info) Description 02/03/2023 12:30 PM EST Laboratory Laboratory [address] [place] [phone] [place] [address] Arrived Allergies Active Allergy Reactions Criticality Noted Date [...] tablets to use x 5 days at [facility] 06-14-18 Take 1 Tab by mouth 3 times a day as needed for Dizziness. Indications: Given script for 8 tablets to use x 5 days at [facility] 06-14-18 90 Tab 0 10/31/2018 Active [...] A1c goal of less than 8.0% ([facility]) TAKE ONE TABLET BY MOUTH EVERY MORNING 100 Tablet 1 09/15/2022 09/15/2023 Active Metoprolol Tartrate 25 MG Oral Tablet (Lopressor)Indicatio ns:Hypertensive kidney disease with stage 3b chronic kidney disease ([facility]),Hypertension with goal blood pressure less [...] A1c goal of less than 8.0% ([facility]) USE TO TEST BLOOD SUGAR [...] group D, by GOLD 2017 classification ([facility]) Inhale 1 Puff by mouth in the [...] 3 12/26/2022 12/26/2023 Active OneTouch Delica Plus [id number] :Type 2 diabetes mellitus with hemoglobin A1c goal of less than 8.0% ([facility]) Use to test blood sugar [...] nodule 08/14/2019 Coronary artery disease invo lving [place] coronary artery of [place] heart without angina pectoris 08/30/2018 Diabetes mellitus [...] Description 02/06/2023 9:15 AM EST Imaging Radiology [address] [place] [address] 02/22/2023 3:30 PM EST Office Visit Sleep Disorders Ctr [facility] [address] [place] [phone] Aminata Quiroz CRNP [address] [place] [address] 05/02/2023 1:40 PM EST Office Visit Family Medicine [address] [place] [phone] Sandra Rasheed MD [address] [place] [address] [place] [address] 05/10/2023 11:30 AM EST Office Visit Ophthalmology, [facility] [address] [place] [address] Mulugeta Hodges DO [address] [place] [address] 07/27/2023 3:00 PM EDT Office Visit Cardiology, [facility] [address] [place] [address] Laquita Leija CRNP [address] [place] [address] 07/31/2023 1:30 PM EDT Nurse Only Ancillary [address] [place] [address] [place], Nurse [address] [place] [address] Scheduled Procedures Name Priority Associated Diagnoses Date/Ti [...] Additional history exists CKD PHOS USE SMARTSET 57370 04/26/202309/2022, 04/21/2021, 12/06/2019, Additional history exists Diabetic Foot Exam 04/26/2023 04/26/2022, 0 07/22/2021, 07/21/2020, Additional history exists GFR 04/29/2023 10/27/2022, 020 09/2022, 12/20/2021, Additional history exists HbA1c 04/29/2023 10/27/2022, 020 09/2022, 04/21/2021, Additional history exists DXA Scan 07/24/2023 07/23/2020, 07/20, 03/25/2013 Depression Screening 07/27/2023 07/26/2022 Diabetic Eye Exam 08/11/2023 08/10/2022, , 06/23/2021, Additional history exists CKD HGB USE SMARTSET 82720 10/28/202310/27, 10/27/2022, 04/26/2022, Additional history exists O2 [...] this encounter Medical Devices Implanted Type Area Buckle Assembler Device Identifier Shelf Expiration Date Model / Serial / Lot Gynecare Tvt Device Implanted:Qty: 1 on 06/18/2013 at OR [facility] N/A: Bladder 02/17/2016 [id number] / / [id number] documented as of this encounter Care Teams Director Of Housing Relationship Specialty Start Date End Date Sandra Rasheed MD [address] [place] [address] [place] [address] PCP - General Family Medicine 06/05/15 documented as of this encounter
--- OUTSIDE RECORDS SUMMARY | 2023-06-01 06:52 | External Medical Summary | Summary of Care ---
Author Name Unknown Organization [facility] Address [address] [place] [address] Phone [phone] Care Team Providers Care Senior Group Manager Name Role Phone Sandra Rasheed MD Primary Care Provide r Reason for Referral * Precert (Within 10 days (routine)) - Pending Review Specialty Diagnoses / Procedures Referred By Monse orellana Referred To Contact Radiology Diagnoses Abnormal US (ultrasound) of abdomen Procedures MRI ABDOMEN WO CONTRAST Jelly Mills CRNP [address] [place] [address] Referral ID Status Reason Start Date Expiration Date V isits Requested Visits Authorized [id number] Pending Review 02/06/[phone] Encounter Details Date Type Department Care Team (Late st Contact Info) Description 02/06/2023 Orders Only Gastroenterology, [facility] [address] [place] [address] Jelly Mills CRNP [address] [place] [address] Abnormal US (ultrasound) of abdomen* Allergies Active Allergy Reactions Criticality Noted Date Comments Influenza Vaccines 01/06/2015 Had flu symptoms x 1 month after injection Iodinated Contrast Media High 09/01/2016 Hives 48 hours post cardiac cath. No respiratory symptoms Sulfa Antibiotics Unknown 02/22/2013 documented as of this encounter (statuses as of 02/06/2023) Medications Medication Sig Dispensed Refills Start Date End Date Status ASPIRIN 81 MG PO TABS Take by mouth at bedtime. 0 Active Cholecalciferol 1000 UNITS Capsule Take 1 Capsule by mouth at bedtime. 30 Cap 3 09/09/2016 Active meclizine (ANTIVERT) 25 MG TabletIndications:Gi daren script for 8 tablets to use x 5 days at [facility] 06-14-18 Take 1 Tab by mouth 3 times a day as needed for Dizziness. Indications: Given script for 8 tablets to use x 5 days at [facility] 06-14-18 90 Tab 0 10/31/2018 Active [...] D, by GOLD 2017 classification ([facility]) Inhale 1 Puff by mouth [...] 3 12/26/2022 12/26/2023 Active OneTouch Delica Plus [id number] :Type 2 diabetes mellitus with hemoglobin A1c goal of less than 8.0% ([facility]) Use to test blood sugar up to twice daily. Dx E11.9 200 Each 3 01/11/2023 Active documented as of this encounter (statuses as of 02/06/2023) Active Problems Problem Noted Date Diagnosed Date [...] as of this encounter (statuses as of 02/06/2023) Resolved Problems Problem Noted Date Diagnosed Date [...] as of this encounter (statuses as of 02/06/2023) Immunizations Name Administration Dates Next Due HEP [...] Team (Late st Contact Info) Description 02/22/2023 3:30 PM EST Office Visit Sleep Disorders Ctr [facility] [address] [place] [phone] Aminata Quiroz CRNP [address] [place] [address] 05/02/2023 1:40 PM EST Office Visit Family Medicine [address] [place] [phone] Sandra Rasheed MD [address] [place] [address] [place] [address] 05/10/2023 11:30 AM EST Office Visit Ophthalmology, [facility] [address] [place] [address] Mulugeta Hodges, [address] [place] [address] 07/27/2023 3:00 PM EDT Office Visit Cardiology, [facility] [address] [place] [address] Laquita Leija CRNP [address] [place] [address] 07/31/2023 1:30 PM EDT Nurse Only Ancillary Kelsy Maxwell[address] [place] [address] Nurse Hank [address] [place] [address] Scheduled Orders Name Type Priority Associated Diagnoses Orde r Schedule MRI ABDOMEN WO CONTRAST Medical Imaging Routine Abnormal US (ultrasound) of abdomen Ordered: 02/06/2023 Scheduled Procedures Name Priority Associated Diagnoses Date/Ti [...] Additional history exists CKD PHOS USE SMARTSET 67432 04/26/2023 02/0 09/2022, 04/21/2021, 12/06/2019, Additional history exists Diabetic Foot Exam 04/26/2023 04/26/2022, 0 07/22/2021, 07/21/2020, Additional history exists HbA1c 04/29/2023 10/27/2022, 09/2022, 04/21/2021, Additional history exists DXA Scan 07/24/2023 07/23/2020, 07/20, 03/25/2013 Depression Screening 07/27/2023 07/26/2022 GFR 08/04/2023 02/03/2023, 10/18, 04/26/2022, Additional history exists Diabetic Eye Exam 08/11/2023 08/10/2022, , 06/23/2021, Additional history exists CKD HGB USE SMARTSET 90973 02/04/202402/03, 02/03/2023, 10/27/2022, Additional history exists O2 [...] this encounter Medical Devices Implanted Type Area Screen Cutter And Trimmer Device Identifier Shelf Expiration Date Model / Serial / Lot Gynecare Tvt Device Implanted:Qty: 1 on 06/18/2013 at OR [facility] N/A: Bladder 02/17/2016 [id number] / / [id number] documented as of this encounter Visit Diagnoses Diagnosis Abnormal US (ultrasound) of abdomen- Primary Nonspecific (abnormal) findings on radiological and other examination of abdominal area, including retroperitoneum documented in this encounter Care Teams Senior Group Manager Relationship Specialty Start Date End Date Sandra Rasheed MD [address] [place] [address] [place] [address] PCP - General Family Medicine 06/05/15 documented as of this encounter
--- OUTSIDE RECORDS SUMMARY | 2023-06-01 06:52 | External Medical Summary | Summary of Care ---
Author Name Unknown Organization [facility] Address [address] [place] [address] Phone [phone] Care Team Providers Care Unindentured Apprentice Name Role Phone Fang Rasheed MD Primary Care Provide r Reason for Visit * Reason Comments Medication Refill Encounter Details Date Type Department Care Team (Late st Contact Info) Description 02/22/2023 Refill Family Medicine [address] [phone] Fang Rasheed MD [address] [place], [place] [address] [address] Type 2 diabetes mellitus with hemoglobin A1c goal of less than 8.0% ([facility]) Allergies Active Allergy Reactions Criticality [...] tablets to use x 5 days at [facility] 06-14-18 Take 1 Tab by mouth 3 times a day as needed for Dizziness. Indications: Given script for 8 tablets to use x 5 days at [facility] 06-14-18 90 Tab 0 10/31/2018 Active [...] hemoglobin A1c goal of less than 8.0% ([facility]) TAKE ONE TABLET BY MOUTH EVERY MORNING 100 Tablet 1 09/15/2022 4 Active Metoprolol Tartrate 25 MG Oral Tablet (Lopressor)Indicati ons:Hypertensive kidney disease with stage 3b chronic kidney disease ([facility]),Hypertension with goal blood pressure less [...] DAY 100 Tablet 4 10/24/2022 4 Active Arnuity Ellipta 200 MCG/ACT Inhalation Aerosol Powder Breath Activated (fluticasone Furoate)Indications :COPD, group D, by GOLD 2017 classification ([facility]) Inhale 1 Puff by mouth in the morning. 30 Each 3 12/01/2022 Active predniSONE 10 MG Oral Tablet (Deltasone)Indicati [...] 12/12/2022 Active Spironolactone 25 MG Oral Tablet (Aldactone)Indicati [...] 3 12/26/2022 4 Active OneTouch Delica Plus [id number] s:Type 2 diabetes mellitus with hemoglobin A1c goal of less than 8.0% ([facility]) Use to test blood sugar up to twice daily. Dx E11.9 200 Each 3 01/11/2023 Active OneTouch Verio In Vitro Strip (Glucose Blood)Indications:T ype 2 diabetes mellitus with hemoglobin A1c goal of less than 8.0% ([facility]) USE TO TEST BLOOD SUGAR UP TO TWICE DAILY 200 Strip 2 02/22/2023 5 Active Glucose Blood In Vitro StripIndications:Ty pe 2 diabetes mellitus with hemoglobin A1c goal of less than 8.0% ([facility]) USE TO TEST BLOOD SUGAR UP TO TWICE DAILY 200 Strip 3 01/21/2022 3 Discontinue d(Refill) documented as of this encounter (statuses as [...] nodule 08/14/2019 Coronary artery disease invo lving yuhaaviatam coronary artery of [place]iatam heart without angina pectoris 08/30/2018 Diabetes mellitus [...] encounter Miscellaneous Notes * Telephone Encounter - Janie Miller RPh - 02/22/2023 11:15 AM ESTSigned Prescriptions: Disp Refills OneTouch Qbaka In Vitro Strip (Glucose Blo*[address] St*2 Sig: USE TOTEST BLOOD SUGAR UP TO TWICE DAILYAuthorizing Provider: FANG RASHEED User: JANIE MILLER documented in this encounter Plan of Treatment Upcoming Encounters Date Type Department Care Team (Late st Contact Info) Description 02/22/2023 12:15 PM EST Imaging Radiology [facility] [address] [facility] [place] [address] Arrived 02/22/2023 3:30 PM EST Office Visit Sleep Disorders Ctr [facility] [address] [place] [phone] Aminata Quiroz CRNP 132 [facility] [place] [address] 05/02/2023 1:40 PM EST Office Visit Family Medicine [address] [place] [phone] Fang Rasheed MD [address] [place] [address] [place] [address] 05/10/2023 11:30 AM EST Office Visit Ophthalmology, [facility] [address] [place] [address] Mulugeta Hodges DO [address] [place] [address] 07/27/2023 3:00 PM EDT Office Visit Cardiology, [facility] [address] [place] [address] Laquita Leija CRNP [address] [place] [address] 07/31/2023 1:30 PM EDT Nurse Only Ancillary [address] [place] [address] [place], Nurse [address] [place] [address] Scheduled Procedures Name Priority Associated Diagnoses Date/Ti [...] Additional history exists CKD PHOS USE SMARTSET 35066 04/26/2023 02/0 09/2022, 04/21/2021, 12/06/2019, Additional history exists Diabetic Foot Exam 04/26/2023 04/26/2022, 0 07/22/2021, 07/21/2020, Additional history exists HbA1c 04/29/2023 10/27/2022, 09/2022, 04/21/2021, Additional history exists DXA Scan 07/24/2023 07/23/2020, 07/20, 03/25/2013 Depression Screening 07/27/2023 07/26/2022 GFR 08/04/2023 02/03/2023, 10/18, 04/26/2022, Additional history exists Diabetic Eye Exam 08/11/2023 08/10/2022, , 06/23/2021, Additional history exists CKD HGB USE SMARTSET 88244 02/04/202402/03, 02/03/2023, 10/27/2022, Additional history exists O2 [...] this encounter Medical Devices Implanted Type Area Department Coordinator Device Identifier Shelf Expiration Date Model / Serial / Lot Gynecare Tvt Device Implanted:Qty: 1 on 06/18/2013 at OR [facility] N/A: Bladder 02/17/2016 [id number] / / [id number] documented as of this encounter Visit Diagnoses Diagnosis Type 2 diabetes mellitus with hemoglobin A1c goal of less than 8.0% ([facility]) documented in this encounter Care Teams Unindentured Apprentice Relationship Specialty Start Date End Date Fang Rasheed MD [address] [place] [address] [place] [phone] PCP - General Family Medicine 06/05/15 documented as of this encounter
--- OUTSIDE RECORDS SUMMARY | 2023-06-01 07:16 | External Medical Summary ---
Author Name Unknown Address Unknown Organization K01:[facility] [place] [facility] [address] [facility] [address] Laboratory Report Ordering Provider Test Date Status COLTEN RIVERA 02/03/2023 12:34:11 Final Observation Date Value Abnormality Reference (Units ) Status SYNC LEUKOCYTES IN BLOOD BY AUTOMATED COUNT 02/03/2023 12:34:11 5.38 4.00-10.80 (K/uL) Final Segs 02/03/2023 12:34:11 61.7 40.0-75.0 (%) Final Lymphs % 02/03/2023 12:34:11 26.2 18.0-42.0 (%) Final Monos 02/03/2023 12:34:11 7.4 1.0-11.0 (%) Final Eosinophils 02/03/2023 12:34:11 2.8 0.0-6.0 (%) Final Basos 02/03/2023 12:34:11 1.3 0.0-2.0 (%) Final Immature Granulocyte, Percent 02/03/2023 12:34:11 0.6 0.0-2.0 (%) Final Absolute Segs 02/03/2023 12:34:11 3.32 1.80-7.70 (K/uL) Final Lymphs, absolute 02/03/2023 12:34:11 1.41 1.00-4.80 (K/ul) Final Monos, Abs 02/03/2023 12:34:11 0.40 0.00-1.10 (K/uL) Final Eos, Abs 02/03/2023 12:34:11 0.15 0.00-0.70 (K/uL) Final Basos, Abs 02/03/2023 12:34:11 0.07 0.00-0.20 (K/uL) Final Immature Granulocytes, Number 02/03/2023 12:34:11 0.03 0.00-0.20 (K/uL) Final Performing Location [facility] [place] [address] [facility] [address]
--- OUTSIDE RECORDS SUMMARY | 2023-06-01 07:16 | External Medical Summary ---
Author Name Unknown Address Unknown Organization K01:[facility] [place] [facility] [place] [address] Laboratory Report Ordering Provider Test Date Status COLTEN RIVERA 02/03/2023 12:34:11 Final Observation Date Value Abnormality Reference (Units ) Status WBC, Total 02/03/2023 12:34:11 5.38 4.00-10.80 (K/uL) Final RBC 02/03/2023 12:34:11 4.68 3.85-5.15 (M/uL) Final Hemoglobin 02/03/2023 12:34:11 14.2 12.0-15.3 (g/dL) Final HCT 02/03/2023 12:34:11 43.7 36.0-45.2 (%) Final MCV 02/03/2023 12:34:11 93.4 81.5-97.5 (fL) Final MCH 02/03/2023 12:34:11 30.3 27.0-34.0 (pg) Final MCHC 02/03/2023 12:34:11 32.5 32.0-36.0 (g/dL) Final RDW 02/03/2023 12:34:11 14.2 11.5-15.5 (%) Final Platelets 02/03/2023 12:34:11 160 140-400 (K/uL) Final MPV 02/03/2023 12:34:11 10.4 6.6-11.1 (fL) Final Nucleated erythrocytes/100 leukocytes [Ratio] in Blood by Automated count 02/03/2023 12:34:11 0 <=0 (/100 WBCs) Final Performing Location [facility] [place] [address] [place] [address]
--- OUTSIDE RECORDS SUMMARY | 2023-06-01 07:17 | External Medical Summary ---
Author Name Unknown Address Unknown Organization K01:[facility] [place] - [address] [place] [address] Laboratory Report Ordering Provider Test Date Status COLTEN RIVERA 02/03/2023 12:34:11 Final Observation Date Value Abnormality Reference (Units ) Status BUN 02/03/2023 12:34:11 14 6-20 (mg/dL) Final Creatinine 02/03/2023 12:34:11 1.2 Above high normal 0.5-1.0 (mg/dL) Final Glomerular filtration rate/1.73 sq M.predicted [Volume Rate/Area] in Serum, Plasma or Blood by Creatinine-based formula (CKD-EPI) 02/03/2023 12:34:11 48 Below low normal >=60 (mL/min) Final eGFR is calculated based on the CKD-EPI 2020 equation SODIUM 02/03/2023 12:34:11 140 135-146 (m mol/L) Final Potassium 02/03/2023 12:34:11 4.4 3.5-5.1 (m mol/L) Final Cl 02/03/2023 12:34:11 102 98-107 (mm ol/L) Final CO2 02/03/2023 12:34:11 27 22-32 (mmo l/L) Final Anion gap 02/03/2023 12:34:11 11 7-15 (mmol /L) Final Glucose 02/03/2023 12:34:11 107 70-120 (mg /dL) Final Albumin 02/03/2023 12:34:11 4.2 3.8-5.0 (g /dL) Final AST (Aspartate aminotransferase) 02/03/2023 12:34:11 19 10-35 (U/L) Fin al Alk Phos 02/03/2023 12:34:11 112 35-130 (U/ L) Final Bilirubin, Total 02/03/2023 12:34:11 0.5 <=1 .2 (mg/dL) Final Calcium 02/03/2023 12:34:11 9.6 8.4-10.2 ( mg/dL) Final Protein 02/03/2023 12:34:11 5.9 Below low normal 6.0 -8.3 (g/dL) Final ALT (Alanine aminotransferase) 02/03/2023 12:34:11 25 10-35 (U/L) Adi clay Performing Location LABORATORY [facility] [place] - [facility] [address] [facility] [address]
--- OUTSIDE RECORDS SUMMARY | 2023-06-01 07:17 | External Medical Summary | Summary of Care ---
Author Name Unknown Organization [facility] Address [address] [place] [address] Phone [phone] Care Team Providers Care Direct Of Real Estate Name Role Phone Sandra Rasheed MD Primary Care Provide r Reason for Visit * Reason Comments Follow Up Encounter Details Date Type Department Care Team (Late st Contact Info) Description 01/25/2023 11:00 AM EST Office Visit Cardiology, [facility] [address] [place] [address] Laquita Leija CRNP [address] [facility] [address] Coronary artery disease involving [place] coronary artery of [place] heart without angina pectoris*; HTN, goal below 140/90; Dyslipidemia, goal LDL below 130 Allergies Active Allergy Reactions Criticality Noted Date Comments Influenza Vaccines 01/06/2015 Had flu symptoms x 1 month after injection Iodinated Contrast Media High 09/01/2016 Hives 48 hours post cardiac cath. No respiratory symptoms Sulfa Antibiotics Unknown 02/22/2013 documented as of this encounter (statuses as of 01/28/2023) Medications Medication Sig Dispensed Refills Start Date End Date Status ASPIRIN 81 MG PO TABS Take by mouth at bedtime. 0 Active Cholecalciferol 1000 UNITS Capsule Take 1 Capsule by mouth at bedtime. 30 Cap 3 09/09/2016 Active meclizine (ANTIVERT) 25 MG TabletIndications:Gi daren script for 8 tablets to use x 5 days at [facility] 06-14-18 Take 1 Tab by mouth 3 times a day as needed for Dizziness. Indications: Given script for 8 tablets to use x 5 days at [facility] 06-14-18 90 Tab 0 10/31/2018 Active CPAP every night at bedtime. 0 Active Olopatadine HCl 0.2 % Ophthalmic Solution ([facility]) Instill 1 Drop into both eyes daily. 5 mL 12 08/06/2020 Active Vitamin C 1000 MG Oral Tablet Take 1 Tablet by mouth in the morning. 1 tab daily in the winter. 0 Active Gabapentin 300 MG Oral Capsule (Neurontin) Take 1 Capsule by mouth at bedtime. Pt is taking three times a day 0 Active Calcium Carb-Cholecalciferol 600-1000 MG-UNIT Oral Capsule Take by mouth . 1 daily 0 Active glipiZIDE ER 5 MG Oral Tablet Extended Release 24 Hour (Glucotrol XL)Indications:Type 2 diabetes mellitus with hemoglobin A1c goal of less than 8.0% ([facility]) TAKE ONE TABLET BY [...] COPD, group D, by GOLD 2017 classification ([facility]) Inhale 1 Puff by [...] 3 12/26/2022 12/26/2023 Active OneTouch Delica Plus [id number] :Type 2 diabetes mellitus with hemoglobin A1c goal of less than 8.0% ([facility]) Use to test blood sugar up to twice daily. Dx E11.9 200 Each 3 01/11/2023 Active documented as of this encounter (statuses as of 01/28/2023) Active Problems Problem Noted Date Diagnosed Date [...] nodule 08/14/2019 Coronary artery disease invo lving [place] coronary artery of [place] heart without angina pectoris 08/30/2018 Diabetes mellitus [...] as of this encounter (statuses as of 01/28/2023) Resolved Problems Problem Noted Date Diagnosed Date [...] as of this encounter (statuses as of 01/28/2023) Immunizations Name Administration Dates Next Due HEP [...] Sign Reading Time Taken Comments Blood Pressure 138/68 01/25/2023 11:02 AM EST Pulse 64 01/25/2023 11:02 AM EST Temperature - - Respiratory Rate - - Oxygen Saturation 96% 01/25/2023 11:02 AM EST Inhaled Oxygen Concentration - - Weight 83.9 kg (185 lb) 01/25/2023 11:02 AM EST Height - - Body Mass Index 33.3 08/30/2022 12:19 PM EDT documented in this encounter Progress Notes * Laquita Leija CRNP - 01/25/2023 11:00 AM EST 01/25/2023 Cardiology Follow Up Primary Candy Maker Helper: Dr. Sykes Cardiac Problems: Mild to moderate nonobstructive CAD per R/L cardiac catheterization 07/2016 with elevated pulmonarypressures Dyslipidemia COPD with chronic tobacco use >58 years OMARI with CPAP - tolerating well Hypertension Allergy to contrast dye peripheral neuropathy 8. Murmur-likely s/t dynamic LVOT gradient in the setting of hyperdynamic LV systolic function HPI: Mildred Moser is a 77 year old female presents for close cardiology follow up and to discuss recent test results. Patient was last seen in our office on 09/05/2022 with complaints of easy fatigue and a "stable degree" of shortness of breath with exertion. She does currently smoke. Since that visit, patient had been seen by her PCP and noted recent intermittant chest pain. As a result EKG was obtained which showed no evidence of acute ischemia. She was ordered a nuclear stress test which was negative for indicible ischemia. Patient presents today feeling ok from a cardiac standpoint. She does endorse a recent ED visit forbronchitis. Feeling better now BP well controlled. Recent lipid panel. Stable. Recent HgB A1C 6.7, stable. Reports compliance on all medication therapies with no untoward effects. REVIEW OF SYSTEMS: See HPI for pertinent positives. All others negative other than those noted in the HPI. CONSTITUTIONAL: No change in weight, No weakness, No fatigue and No fevers, No sweats or chills. PULMONARY: No cough, sputum, or hemoptysis, No wheezing, No shortness or breath and No recent change in breathing. CARDIOVASCULAR: No chest pain, No dyspnea on exertion, No edema, No palpitations and No syncope. GASTROINTESTINAL: No abdominal pain, No change in bowel habits, No significant heartburn, No nausea, No vomiting, No diarrhea, No constipation, No blood in stools or black tarry stools. No dysphagia. HEMATOLOGIC: No abnormal bleeding and No bruising. NEUROLOGICAL: Normal balance, No headaches and No weakness. Review of patient's allergies indicates: Allergen Reactions [...] tablets to use x 5 days at [facility] 06-14-18 90 Tab 0 CPAP every night at bedtime. Olopatadine HCl 0.2 % Ophthalmic Solution ([facility]) Instill 1 Drop into both eyes daily. [...] the morning. 90Capsule 3 OneTouch Delica Plus [id number] Use to test blood sugar up to twice daily. Dx E11.9 200 Each 3 No current facility-administered medications for this visit. Past Medical History: Diagnosis Date COPD (chronic obstructive pulmonary disease) ([facility]) COVID-19 10/25/2021 CRVO (central retinal vein occlusion) OS Dyslipidemia, goal LDL below 130 Hypercholesteremia Hypertension Hypertension goal BP (blood pressure) < 140/90 Hypertensive retinopathy OU Impaired fasting glucose 02/22/2013 Lung nodule PAD (peripheral artery disease) ([facility]) 07/22/2014 Pneumonia 06/08/2015 [facility] Postmenopausal atrophic vaginitis 06/05/2013 Preoperative respiratory examination 02/27/2020 Retinal edema OS Sleep apnea, obstructive Tobacco use disorder Tubular adenoma of colon Urge incontinence of urine 06/05/2013 Urinary incontinence without sensory awareness Urinary, incontinence, stress female Vitreous hemorrhage of left eye ([facility]) Family History Problem Relation Age of Onset Arthritis Mother Diabetes Mother Heart Disorder Mother Obesity Mother Cancer Mother ovarian Stroke Mother Asthma Mother Arthritis Father Heart Disorder Father Diabetes Grandmother (Maternal) Diabetes Grandmother (Paternal) Heart Disorder Brother Lung Disorder Brother COPD Asthma Brother Heart Disorder Brother Lung Disorder Brother Social History Socioeconomic History Marital status: Number of children: 1 Occupational History 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 A+Ox3. HEENT: Normocephalic. Atraumatic. PERRL. EOMI. Conjunctiva and sclera clear. NECK: No carotid bruits. No JVD. Carotid upstrokes are brisk. Heart: RRR. S1 and S2 noted. +1/6 systolic murmur. No rubs or gallops. PMI non displaced. Lungs: Clear to auscultation. No wheezes.No rhonchi. No rales. Abdomen: Normal bowel sounds. Soft. Nontender. No masses or organomegaly. No abdominal bruits. Extremities: No edema. No clubbing or cyanosis. Pulses: radial=2/4, posterior tibial=2/4, dorsalis pedis = 2/4. NEURO: No focal deficits. PSYCH: Appropriate affect and insight. DATA Labs & Imaging Reviewed Below: Nuclear Lexiscan stress test 12/28/2022 Combined low intensity exercise/pharmacologic myocardial perfusion imaging study is normal with no evidence of scar or inducible ischemia. Gated SPECT imaging reveals normal myocardial thickening and wall motion. The left ventricular ejection fraction was calculated to be > 70%. EKG 10/27/2022 Normal sinus rhythm Cannot rule out Inferior infarct , age undetermined Anterolateral infarct (cited on or before 20-JUN-2017) Abnormal ECG When compared with ECG of 22-OCT-2021 13:20, No significant change was found Ventricular Rate: 63 Carotid duplex 04/22/2021 Impression: Right carotid artery duplex examination indicates evidence of less than 50% stenosis of the internal carotid artery. Left carotid artery duplex examination indicates evidence of less than 50% stenosis of the internalcarotid artery. ASSESSMENT/PLAN: 77 year old year old female 1. Coronary artery disease involving [place] coronary artery of [place] heart without angina pectoris -Non-obstructive CAD, remains asymptomatic. -Continue GDMT with Metoprolol, Atorvastatin, Losartan and ASA. 2. HTN, goal below 140/90 -Continue Metoprolol, Losartan, Torsemide and Spironolactone. 3. Dyslipidemia, goal LDL below 130 -Continue Atorvastatin DISPOSITION: Follow up 6 months or if symptoms worsen/fail to improve. All questions were answered to the patients satisfaction. Patient advised to report to ED with any and all emergencies. The patient agrees to the above plan and will call with additional questions or concerns. DIPAK Gomez Cardiology, [facility] [address] [facility] [place] [address] I spent a total of 33 minutes on the date of service in preparation, delivery, and documentation ofthe care provided to Mildred Moser excluding any time spent in the performance of separately billed services. This chart was completed in part utilizing [employer] Speech Voice Recognition Software. Grammatical errors, random word insertions, pronoun errors, and incomplete sentences are an occasional consequence of this system due to software limitations, ambient noise, and hardware issues. Any formal questions or concerns about the content, text, or information contained within the body of this dictation should be directly addressed to the provider for clarification. documented in this encounter Nursing Notes * Florinda Torres CMA - 01/25/2023 11:01 AM EST Examination Room: 1 Name: Mildred Moser Date of : (1945) Reason for Visit: f/u stress test Interim Hospitalization(s): none Problems/Concerns: denied Chest Pain/SOB: denied My [facility] is a way you can talk to your provider online through e-mail. Would you like to sign up? I can activate it for you? ALREADY ACTIVE Patient was instructed to not get up on the exam table until directed and assisted by their provider; patient is to remain seated in the chair/ wheelchair/ exam table for fall prevention and safety reasons. Patient is aware to have assistance to step down off exam table with personnel. Patient voiced full comprehension of instructions. documented in this encounter Plan of Treatment Upcoming Encounters Date Type Department Care Team (Late st Contact Info) Description 02/03/2023 12:00 PM EST Office Visit Gastroenterology [address] [place] [address] Jelly Mills CRNP [address] [place] [address] 02/22/2023 3:30 PM EST Office Visit Sleep Disorders Ctr [facility] [address] [place] [phone] Aminata Quiroz CRNP [address] [place] [address] 05/02/2023 1:40 PM EST Office Visit Family Medicine [address] [place] [phone] Sandra Rasheed MD [address] [place] [address] [place] [address] 07/27/2023 3:00 PM EDT Office Visit Cardiology, [facility] [address] [place] [address] Laquita Leija CRNP [address] [place] [address] 07/31/2023 1:30 PM EDT Nurse Only Ancillary [address] [place] [address] [place], Nurse [facility] [address] [place] [address] [place] [address] Scheduled Procedures Name Priority Associated Diagnoses Date/Ti [...] Additional history exists CKD PHOS USE SMARTSET 64128 04/26/2023 02/0 09/2022, 04/21/2021, 12/06/2019, Additional history exists Diabetic Foot Exam 04/26/2023 04/26/2022, 0 07/22/2021, 07/21/2020, Additional history exists GFR 04/29/2023 10/27/2022, 020 09/2022, 12/20/2021, Additional history exists HbA1c 04/29/2023 10/27/2022, 020 09/2022, 04/21/2021, Additional history exists DXA Scan 07/24/2023 07/23/2020, 07/20, 03/25/2013 Depression Screening 07/27/2023 07/26/2022 Diabetic Eye Exam 08/11/2023 08/10/2022, , 06/23/2021, Additional history exists CKD HGB USE SMARTSET 54016 10/28/202310/27, 10/27/2022, 04/26/2022, Additional history exists O2 [...] this encounter Medical Devices Implanted Type Area Fire Extinguisher Tester Device Identifier Shelf Expiration Date Model / Serial / Lot Gynecare Tvt Device Implanted:Qty: 1 on 06/18/2013 at OR [facility] N/A: Bladder 02/17/2016 [id number] / / [id number] documented as of this encounter Visit Diagnoses Diagnosis Coronary artery disease involving [place] coronary artery of [place] heart without angina pectoris- Primary HTN, goal below 140/90 Unspecified essential hypertension Dyslipidemia, goal LDL below 130 Other and unspecified hyperlipidemia documented in this encounter Care Teams Direct Of Real Estate Relationship Specialty Start Date End Date Sandra Rasheed MD [address] [place] [address] [place] [address] PCP - General Family Medicine 06/05/15 documented as of this encounter
--- OUTSIDE RECORDS SUMMARY | 2023-06-01 07:17 | External Medical Summary | Summary of Care ---
Author Name Unknown Organization [facility] Address [address] [place] [address] Phone [phone] Care Team Providers Care Staff Attorney Name Role Phone Sandra Rasheed MD Primary Care Provide r Reason for Visit * Reason Onset Date Comments Advice 01/27/2023 Encounter Details Date Type Department Care Team (Late st Contact Info) Description 01/27/2023 Telephone Family Medicine [address] [phone] Sandra Rasheed MD [address] [place] [address] [place] [address] Advice Allergies Active Allergy Reactions Criticality Noted Date Comments Influenza Vaccines 01/06/2015 Had flu symptoms x 1 month after injection Iodinated Contrast Media High 09/01/2016 Hives 48 hours post cardiac cath. No respiratory symptoms Sulfa Antibiotics Unknown 02/22/2013 documented as of this encounter (statuses as of 01/27/2023) Medications Medication Sig Dispensed Refills Start Date End Date Status ASPIRIN 81 MG PO TABS Take by mouth at bedtime. 0 Active Cholecalciferol 1000 UNITS Capsule Take 1 Capsule by mouth at bedtime. 30 Cap 3 09/09/2016 Active meclizine (ANTIVERT) 25 MG TabletIndications:Gi daren script for 8 tablets to use x 5 days at [facility] 06-14-18 Take 1 Tab by mouth 3 times a day as needed for Dizziness. Indications: Given script for 8 tablets to use x 5 days at [facility] 06-14-18 90 Tab 0 10/31/2018 Active [...] COPD, group D, by GOLD 2017 classification ([facility]) Inhale 1 Puff by mouth in the [...] 3 12/26/2022 12/26/2023 Active OneTouch Delica Plus [id number] :Type 2 diabetes mellitus with hemoglobin A1c goal of less than 8.0% ([facility]) Use to test blood sugar up to twice daily. Dx E11.9 200 Each 3 01/11/2023 Active documented as of this encounter (statuses as of 01/27/2023) Active Problems Problem Noted Date Diagnosed Date [...] Coronary artery disease invo lving [place] coronary artery of [place] heart without angina pectoris 08/30/2018 Diabetes mellitus [...] as of this encounter (statuses as of 01/27/2023) Resolved Problems Problem Noted Date Diagnosed Date [...] as of this encounter (statuses as of 01/27/2023) Immunizations Name Administration Dates Next Due HEP [...] Telephone Encounter - Cha Mcclendon RN - 01/27/2023 11:45 AM EST Patient called looking for a number to call for the gift cards. MyG sent. If you have any questionsor concerns about the [facility] Gold incentive program and gift cards please call Patient notified Reason for Call: No chief complaint on file. Contact: Telephone Call Contact Type: Advice Outcome: see note Face to face time spent with Patient (minutes): 0 Total Time including non face to face (minutes): 10 documented in this encounter Plan of Treatment Upcoming Encounters Date Type Department Care Team (Late st Contact Info) Description 02/03/2023 12:00 PM EST Office Visit Gastroenterology [address] [place] [address] Jelly Mills CRNP [address] [place] [address] 02/22/2023 3:30 PM EST Office Visit Sleep Disorders Ctr [facility] [address] [place] [phone] Aminata Quiroz CRNP [address] [place] [address] 05/02/2023 1:40 PM EST Office Visit Family Medicine [address] [place] [phone] Sandra Rasheed MD [address] [place] [address] [place] [address] 07/27/2023 3:00 PM EDT Office Visit Cardiology, [facility] [address] [place] [address] Laquita Leija CRNP [address] [place] [address] 07/31/2023 1:30 PM EDT Nurse Only Ancillary [address] [place] [address] [place] Nurse Annual [address] [place] [address] Scheduled Procedures Name Priority Associated Diagnoses Date/Ti [...] Additional history exists CKD PHOS USE SMARTSET 33085 04/26/20230 09/2022, 04/21/2021, 12/06/2019, Additional history exists Diabetic Foot Exam 04/26/2023 04/26/2022, 0 07/22/2021, 07/21/2020, Additional history exists GFR 04/29/2023 10/27/2022, 020 09/2022, 12/20/2021, Additional history exists HbA1c 04/29/2023 10/27/2022, 020 09/2022, 04/21/2021, Additional history exists DXA Scan 07/24/2023 07/23/2020, 07/20, 03/25/2013 Depression Screening 07/27/2023 07/26/2022 Diabetic Eye Exam 08/11/2023 08/10/2022, , 06/23/2021, Additional history exists CKD HGB USE SMARTSET 78840 10/28/202310/27, 10/27/2022, 04/26/2022, Additional history exists O2 [...] this encounter Medical Devices Implanted Type Area Teacher Of The Emotionally Disturbed Device Identifier Shelf Expiration Date Model / Serial / Lot Gynecare Tvt Device Implanted:Qty: 1 on 06/18/2013 at OR [facility] N/A: Bladder 02/17/2016 [id number] / / [id number] documented as of this encounter Care Teams Staff Attorney Relationship Specialty Start Date End Date Sandra Rasheed MD [address] [place] [address] [place] [phone] PCP - General Family Medicine 06/05/15 documented as of this encounter
--- OUTSIDE RECORDS SUMMARY | 2023-06-01 07:18 | External Medical Summary | Summary of Care ---
Author Name Unknown Organization [facility] Address [address] [place] [address] Phone [phone] Care Team Providers Care Product Safety Associate Name Role Phone Sandra Rasheed MD Primary Care Provide r Reason for Visit * Reason Comments Follow Up 6 months Dilation OCT. PT states "I don't notice any change" notes OS feels like lash in it Encounter Details Date Type Department Care Team (Late st Contact Info) Description 01/25/2023 1:45 PM EST Office Visit Ophthalmology, [facility] [address] [place] [address] Mulugeta Hodges, DO [address] [place] [address] Branch retinal vein occlusion with macular edema of right eye*; Stable central retinal vein occlusion of left eye Allergies Active Allergy Reactions Criticality Noted Date Comments Influenza Vaccines 01/06/2015 Had flu symptoms x 1 month after injection Iodinated Contrast Media High 09/01/2016 Hives 48 hours post cardiac cath. No respiratory symptoms Sulfa Antibiotics Unknown 02/22/2013 documented as of this encounter (statuses as of 01/25/2023) Medications Medication Sig Dispensed Refills Start Date End Date Status ASPIRIN 81 MG PO TABS Take by mouth at bedtime. 0 Active Cholecalciferol 1000 UNITS Capsule Take 1 Capsule by mouth at bedtime. 30 Cap 3 09/09/2016 Active meclizine (ANTIVERT) 25 MG TabletIndications:Gi daren script for 8 tablets to use x 5 days at [facility] 06-14-18 Take 1 Tab by mouth 3 times a day as needed for Dizziness. Indications: Given script for 8 tablets to use x 5 days at [facility] 06-14-18 90 Tab 0 10/31/2018 Active CPAP [...] goal of less than 8.0% ([facility]) TAKE ONE TABLET BY MOUTH [...] D, by GOLD 2017 classification ([facility]) Inhale 1 Puff by mouth [...] 3 12/26/2022 12/26/2023 Active OneTouch Delica Plus [id number] :Type 2 diabetes mellitus with hemoglobin A1c goal of less than 8.0% ([facility]) Use to test blood sugar up to twice daily. Dx E11.9 200 Each 3 01/11/2023 Active documented as of this encounter (statuses as of 01/25/2023) Active Problems Problem Noted Date Diagnosed Date [...] nodule 08/14/2019 Coronary artery disease invo lving [place] coronary artery of [place] heart without angina pectoris 08/30/2018 Diabetes mellitus [...] as of this encounter (statuses as of 01/25/2023) Resolved Problems Problem Noted Date Diagnosed Date [...] as of this encounter (statuses as of 01/25/2023) Immunizations Name Administration Dates Next Due HEP [...] this encounter Progress Notes * Mulugeta Hodges, DO - 01/25/2023 1:45 PM EST [facility] [place] Nursing notes reviewed. Eye vitals reviewed. Mood and Affect: normal HPI: Mildred Moser is a 77 year old female who presents for evaluation of CRVO OS and BRVO OD. No other eye complaints. Denies significant pain. Base Eye Exam Visual Acuity (Snellen - Linear) Right Left Dist cc 20/80 +2 20/30 Dist ph cc NI Tonometry (Tonopen, 1:32 PM) Right Left Pressure 17 17 Pupils Light Shape React APD Right 3 Round Brisk None Left 3 Round Brisk None Visual [place] (Counting fingers) Right Left Full Full Extraocular Movement Right Left Full Full Neuro/Psych Oriented x3: Yes Mood/Affect: Normal Dilation Both eyes: 0.5% Proparacaine, 2.5% Phenylephrine, 1.0% Mydriacyl @ 1:32 PM EXTERNAL: The ocular adnexae are unremarkable. SLE: [...] trace erm, subfoveal rpe/photorecep disruption -STABLE, prior improved 39um prior worse 16um prior improved 112um prior worse 56um , prior improved, prior worse 27um OS: trace erm, resolved recurrent cme - STABLE, prior STABLE, prior STABLE A/P: 1. BRVO OD -found on routine exam 11/21/2019 -asymptomatic -has improved despite no tx in past -monitor 2. Non-Ischemic Central Retinal Vein Occlusion OS -s/p Eylea OS x 8 (12/14/15) by Dr. Arguello - s/p Eylea OS by il (06-13-19, 03-21-19, 01-02-19, 10-24-18, 08-15-18, 19, 19, 02-21-18, 12/27/17, 10/18/17, 08-23-2017, 18, 18, 17, 17, 9-6-17, 7-12-17, 5-10-17, -15-17, 1-3-17, 01-27-17) - >2 year since last injection -pt wants prn tx 3. DM2 -no retinopathy -recommend HgbA1C <7, BP and lipid control. 4. Cataracts OU -not visually significant 5. Dermatochalasis -scheduled for bleph w/ Dr. Ferrer F/u 3-4 months - dilate and OCT OU Mulugeta Hodges DO 0223 PCP: Sandra Rasheed MD documented in this encounter Nursing Notes * Lilia Goodman COA - 01/25/2023 1:24 PM EST Mildred Moser is a 77 year old year old female who presents for 6 month Dilation with OCT. Last Office Visit: 08/10/2022 (in office), Visit date not found (telemedicine) Patient currently states "I don't notice any change" notes OS feels like lash in it Are you diabetic? Yes. Do you check your blood sugars daily? YES. Fasting BS this mornin mg/dl. Last Hemoglobin A1C: Lab Results Component Value Date/Time HGBA1C 6.7 (H) 10/27/2022 01:32 PM HGBA1C 6.4 (H) 04/26/2022 01:34 PM HGBA1C 6.2 (H) 04/21/2021 09:15 AM HGBA1C 10.5 (H) 02/24/2020 12:36 PM HGBA1C 9.4 (H) 12/06/2019 10:33 AM HGBA1C 8.7 (H) 04/04/2019 12:[address]? yes OCT image(s) of both eyes acquired and filed/scanned into chart. documented in this encounter Plan of Treatment Upcoming Encounters Date Type Department Care Team (Late st Contact Info) Description 02/03/2023 12:00 PM EST Office Visit Gastroenterology [address] [place] [address] Jelly Mills CRNP [address] [place] [address] 02/22/2023 3:30 PM EST Office Visit [facility] [place] [phone] Aminata Quiroz CRNP [address] [place] [address] 05/02/2023 1:40 PM EST Office Visit Family Medicine [address] [place] [phone] Sandra Rasheed MD [address] [place] [address] [place] [address] 07/27/2023 3:00 PM EDT Office Visit Cardiology, [facility] [address] [facility] [place] [address] Laquita Leija CRNP [address] [place] [address] 07/31/2023 1:30 PM EDT Nurse Only Ancillary [address] [place] [address] [place], Nurse Annual [address] [place] [address] Scheduled Orders Name Type Priority Associated Diagnoses Orde r Schedule RETINA SCAN DIAGNOSTIC IMAGE, POSTERIOR Procedures Routine Branch retinal vein occlusion with macular edema of right eye Ordered: 01/25/2023 FUNDUS PHOTOGRAPHY Procedures Routine Branch retinal vein occlusion with macular edema of right eye Ordered: 01/25/2023 Scheduled Procedures Name Priority Associated Diagnoses Date/Ti [...] Additional history exists CKD PHOS USE SMARTSET 43766 04/26/20230 09/2022, 04/21/2021, 12/06/2019, Additional history exists Diabetic Foot Exam 04/26/2023 04/26/2022, 0 07/22/2021, 07/21/2020, Additional history exists GFR 04/29/2023 10/27/2022, 09/2022, 12/20/2021, Additional history exists HbA1c 04/29/2023 10/27/2022, 0 09/2022, 04/21/2021, Additional history exists DXA Scan 07/24/2023 07/23/2020, 07/20, 03/25/2013 Depression Screening 07/27/2023 07/26/2022 Diabetic Eye Exam 08/11/2023 08/10/2022, , 06/23/2021, Additional history exists CKD HGB USE SMARTSET 53054 10/28/202310/27, 10/27/2022, 04/26/2022, Additional history exists O2 [...] this encounter Medical Devices Implanted Type Area Correctional Treatment Specialist Device Identifier Shelf Expiration Date Model / Serial / Lot Gynecare Tvt Device Implanted:Qty: 1 on 06/18/2013 at OR [facility] N/A: Bladder 02/17/2016 [id number] / / [id number] documented as of this encounter Visit Diagnoses Diagnosis Branch retinal vein occlusion with macular edema of right eye- Primary Stable central retinal vein occlusion of left eye documented in this encounter Care Teams Product Safety Associate Relationship Specialty Start Date End Date Sandra Rasheed MD [address] [place] [address] [place] [address] PCP - General Family Medicine 06/05/15 documented as of this encounter
--- OUTSIDE RECORDS SUMMARY | 2023-06-01 07:18 | External Medical Summary | Summary of Care ---
Author Name Unknown Organization [facility] Address [address] [place] [address] Phone [phone] Care Team Providers Care Tile Sprayer Name Role Phone Sandra Rasheed MD Primary Care Provide r Reason for Visit * Reason Onset Date Comments Advice 01/27/2023 Encounter Details Date Type Department Care Team (Late st Contact Info) Description 01/27/2023 Telephone Family Medicine [address] [phone] Sandra Rasheed MD [address] [place] [address] [place] [address] Advice Allergies Active Allergy Reactions Criticality [...] tablets to use x 5 days at [facility] 06-14-18 Take 1 Tab by mouth 3 times a day as needed for Dizziness. Indications: Given script for 8 tablets to use x 5 days at [facility] 06-14-18 90 Tab 0 10/31/2018 Active [...] ([facility]) Inhale 1 Puff by mouth in the [...] 3 12/26/2022 12/26/2023 Active OneTouch Delica Plus [id number] :Type 2 diabetes mellitus with hemoglobin A1c [...] nodule 08/14/2019 Coronary artery disease invo lving [place] coronary artery of [place] heart without angina pectoris 08/30/2018 Diabetes mellitus [...] you have any questionsor concerns about the [facility] Gold incentive program and gift [...] 02/03/2023 12:00 PM EST Office Visit Gastroenterology [address] [place] [address] Jelly Mills CRNP [address] [place] [address] 02/22/2023 3:30 PM EST Office Visit Sleep Disorders Ctr [facility] [address] [place] [phone] Aminata Quiroz CRNP [address] [place] [address] 05/02/2023 1:40 PM EST Office Visit Family Medicine [address] [place] [phone] Sandra Rasheed MD [address] [place] [address] [place] [address] 07/27/2023 3:00 PM EDT Office Visit Cardiology, [facility] [address] [place] [address] Laquita Leija CRNP [address] [place] [address] 07/31/2023 1:30 PM EDT Nurse Only Ancillary [address] [place] [address] Hank Nurse Annual [address] [place] [address] Scheduled Procedures Name Priority Associated Diagnoses Date/Ti [...] Additional history exists CKD PHOS USE SMARTSET 17986 04/26/20230 09/2022, 04/21/2021, 12/06/2019, Additional history exists Diabetic Foot Exam 04/26/2023 04/26/2022, 0 07/22/2021, 07/21/2020, Additional history exists GFR 04/29/2023 10/27/2022, 020 09/2022, 12/20/2021, Additional history exists HbA1c 04/29/2023 10/27/2022, 020 09/2022, 04/21/2021, Additional history exists DXA Scan 07/24/2023 07/23/2020, 07/20, 03/25/2013 Depression Screening 07/27/2023 07/26/2022 Diabetic Eye Exam 08/11/2023 08/10/2022, , 06/23/2021, Additional history exists CKD HGB USE SMARTSET 51073 10/28/202310/27, 10/27/2022, 04/26/2022, Additional history exists O2 [...] this encounter Medical Devices Implanted Type Area Field Sales Consultant Device Identifier Shelf Expiration Date Model / Serial / Lot Gynecare Tvt Device Implanted:Qty: 1 on 06/18/2013 at OR [facility] N/A: Bladder 02/17/2016 [id number] / / [id number] documented as of this encounter Care Teams Tile Sprayer Relationship Specialty Start Date End Date Sandra Rasheed MD [address] [place] [address] [place] [phone] PCP - General Family Medicine 06/05/15 documented as of this encounter
--- OUTSIDE RECORDS SUMMARY | 2023-06-01 07:19 | External Medical Summary | Summary of Care ---
Author Name Unknown Organization [facility] Address [address] [place] [address] Phone [phone] Care Team Providers Care Grant Coordinator Name Role Phone Fang Rasheed MD Primary Care Provide r Reason for Visit * Reason Comments Medication Refill Encounter Details Date Type Department Care Team (Late st Contact Info) Description 01/11/2023 Refill Family Medicine [address] [phone] Susy Ochoa PA-C [address] [place] [address] [place] [id number] Type 2 diabetes mellitus with hemoglobin A1c goal of less than 8.0% ([facility]) Allergies Active Allergy Reactions Criticality Noted Date Comments Influenza Vaccines 01/06/2015 Had flu symptoms x 1 month after injection Iodinated Contrast Media High 09/01/2016 Hives 48 hours post cardiac cath. No respiratory symptoms Sulfa Antibiotics Unknown 02/22/2013 documented as of this encounter (statuses as of 01/11/2023) Medications Medication Sig Dispensed Refills Start Date End Date Status ASPIRIN 81 MG PO TABS Take by mouth at bedtime. 0 Active Cholecalciferol 1000 UNITS Capsule Take 1 Capsule by mouth at bedtime. 30 Cap 3 09/09/2016 Active meclizine (ANTIVERT) 25 MG TabletIndications:G iven script for 8 tablets to use x 5 days at [facility] 06-14-18 Take 1 Tab by mouth 3 times a day as needed for Dizziness. Indications: Given script for 8 tablets to use x 5 days at [facility] 06-14-18 90 Tab 0 10/31/2018 Active [...] three times a day 0 Active Calcium Carb-Cholecalcifero l 600-1000 MG-UNIT [...] WHEEZING 54 g 3 05/31/2022 4 Active Glucose Blood In Vitro StripIndications:Ty pe 2 diabetes mellitus with hemoglobin A1c goal of less than 8.0% (HCC) USE TO TEST BLOOD SUGAR UP TO TWICE DAILY 200 Strip 3 01/21/2022 3 Active Torsemide 10 MG Oral Tablet (Demadex)Indication [...] :COPD, group D, by GOLD 2017 classification ([facility]) Inhale 1 Puff by mouth [...] 3 12/26/2022 4 Active OneTouch Delica Plus [id number] s:Type 2 diabetes mellitus with hemoglobin A1c goal of less than 8.0% ([facility]) Use to test blood sugar up to twice daily. Dx E11.9 200 Each 3 01/11/2023 Active OneTouch Delica Plus [id number] s:Type 2 diabetes mellitus with hemoglobin A1c goal of less than 8.0% ([facility]) Use to test blood sugar up to twice daily. Dx E11.9 200 Each 3 01/20/2021 3 Discontinue d(Refill) documented as of this encounter (statuses as of 01/11/2023) Active Problems Problem Noted Date Diagnosed Date [...] nodule 08/14/2019 Coronary artery disease invo lving [place] coronary artery of [place] heart without angina pectoris 08/30/2018 Diabetes mellitus [...] as of this encounter (statuses as of 01/11/2023) Resolved Problems Problem Noted Date Diagnosed Date [...] as of this encounter (statuses as of 01/11/2023) Immunizations Name Administration Dates Next Due HEP [...] Recorded PHQ Adult Total Score 1 07/26/2022 Sex and Gender Information Value Date Recorded Sex Assigned at Female 07/21/2020 3:22 PM EDT Gender Identity Female 07/21/2020 3:22 PM EDT Sexual Orientation Straight 07/21/2020 3: 22 PM EDT Job Start Date Occupation Industry Not on file Not on file Not on file documented as of this encounter Miscellaneous Notes * Telephone Encounter - Benny Akins RPh - 01/11/2023 8:55 PM EDTSigned Prescriptions: Disp Refills OneTouch Delica Plus [id number] 200 Ea*3 Sig: Use to test blood sugar up to twice daily. Dx E11.9Authorizing Provider: FANG RASHEED User: BENNY AKINS documented in this encounter Plan of Treatment Upcoming Encounters Date Type Department Care Team (Late st Contact Info) Description 01/25/2023 11:00 AM EST Office Visit Cardiology, [facility] [address] [place] [address] Laquita Leija CRNP [address] [place] [address] 02/03/2023 12:00 PM EST Office Visit Gastroenterology [address] [place] [address] Jelly Mills CRNP [address] [place] [address] 02/22/2023 3:30 PM EST Office Visit Sleep Disorders Ctr [facility] [address] [place] [phone] Aminata Quiroz CRNP [address] [place] [address] 05/02/2023 1:40 PM EST Office Visit Family Medicine [address] [place] [phone] Fang Rasheed MD [address] [place] [address] [place] [address] 07/31/2023 1:30 PM EDT Nurse Only Ancillary [address] [place] [address] [place], Nurse Annual [address] [place] [address] Scheduled Procedures Name Priority Associated Diagnoses Date/Ti [...] Additional history exists CKD PHOS USE SMARTSET 24476 04/26/2023 02/0 09/2022, 04/21/2021, 12/06/2019, Additional history exists Diabetic Foot Exam 04/26/2023 04/26/2022, 0 07/22/2021, 07/21/2020, Additional history exists GFR 04/29/2023 10/27/2022, 02/0 09/2022, 12/20/2021, Additional history exists HbA1c 04/29/2023 10/27/2022, 02/0 09/2022, 04/21/2021, Additional history exists DXA Scan 07/24/2023 07/23/2020, 07/20, 03/25/2013 Depression Screening 07/27/2023 07/26/2022 DIABETES-EYE EXAM 08/11/2023 08/10/2022, , 03/22/2021, Additional history exists CKD HGB USE SMARTSET 89855 10/28/202310/27, 10/27/2022, 04/26/2022, Additional history exists O2 ASSESSMENT COMPLETED IN PAST YEAR FOR COPD 12/13/2023 12/12/2022 COLONOSCOPY-EVERY 3 YRS AGES 18-100 07/13/2025 07/13/2022, [...] this encounter Medical Devices Implanted Type Area Network Relay Tester Device Identifier Shelf Expiration Date Model / Serial / Lot Gynecare Tvt Device Implanted:Qty: 1 on 06/18/2013 at OR [facility] N/A: Bladder 02/17/2016 [id number] / / [id number] documented as of this encounter Visit Diagnoses Diagnosis Type 2 diabetes mellitus with hemoglobin A1c goal of less than 8.0% (HCC) documented in this encounter Care Teams Grant Coordinator Relationship Specialty Start Date End Date Fang Rasheed MD [address] [place] [address] [place] [address] PCP - General Family Medicine 06/05/15 documented as of this encounter
--- OUTSIDE RECORDS SUMMARY | 2023-06-01 07:19 | External Medical Summary | Summary of Care ---
Author Name Unknown Organization [facility] Address [address] [facility] [place] [address] Phone [phone] Care Team Providers Care Rn Orthopaedic Name Role Phone Sandra Rasheed MD Primary Care Provide r Reason for Visit * Reason Comments Medication Refill Encounter Details Date Type Department Care Team Description 12/18/2022 Refill Cardiology [address] [place] [address] Benny Benitez, DO [address] [place] [address] Hypertension goal BP (blood pressure) < 150/90; Localized edema Allergies Active Allergy Reactions Severity Noted Date Comments Influenza Vaccines 01/06/2015 Had flu symptoms x 1 month after injection Iodinated Contrast Media High 09/01/2016 Hives 48 hours post cardiac cath. No respiratory symptoms Sulfa Antibiotics Unknown 02/22/2013 documented as of this encounter (statuses as of 12/19/2022) Medications Medication Sig Dispensed Refills Start Date End Date Status ASPIRIN 81 MG PO TABS Take by mouth at bedtime. 0 Active Cholecalciferol 1000 UNITS Capsule Take 1 Capsule by mouth at bedtime. 30 Cap 3 09/09/2016 Active meclizine (ANTIVERT) 25 MG TabletIndications:G iven script for 8 tablets to use x 5 days at [facility] 06-14-18 Take 1 Tab by mouth 3 times a day as needed for Dizziness. Indications: Given script for 8 tablets to use x 5 days at [facility] 06-14-18 90 Tab 0 10/31/2018 Active CPAP every night at bedtime. 0 Active Olopatadine HCl 0.2 % Ophthalmic Solution (Pataday) Instill 1 Drop into both eyes daily. 5 mL 12 08/06/2020 Active OneTouch Delica Plus [id number] s:Type 2 diabetes mellitus with hemoglobin A1c goal of less than 8.0% (HCC) Use to test blood sugar up to twice daily. Dx E11.9 200 Each 3 01/20/2021 Active Vitamin C 1000 MG Oral Tablet [...] DAILY 200 Strip 3 01/21/2022 3 Active Omeprazole 20 MG Oral Capsule Delayed Release (PriLOSEC)Indicatio ns:Hypertension goal BP (blood pressure) < 150/90 TAKE 1 TABLET BY MOUTH DAILY ONE HOUR BEFORE THE FIRST MEAL OF THE DAY 90 Capsule 3 12/27/2021 3 Active Atorvastatin Calcium 40 MG Oral Tablet (Lipitor)Indication s:Dyslipidemia, goal LDL below 130,Hypertension goal BP (blood pressure) < 150/90 TAKE ONE TABLET BY MOUTH EVERY DAY 90 Tablet 3 12/27/2021 3 Active Torsemide 10 MG Oral Tablet [...] :COPD, group D, by GOLD 2017 classification (HCC) Inhale 1 Puff by mouth in the [...] WEEK 64 Tablet 3 12/19/2022 4 Active Spironolactone 25 MG Oral Tablet (Aldactone)Indicati ons:Hypertension goal BP (blood pressure) < 150/90,Localized edema TAKE ONE TABLET BY MOUTH ON MONDAY, MONDAY, AND MONDAY. TAKE ONE-HALF TABLET ON ALL OTHER DAYS OF THE WEEK 64 Tablet 3 12/27/2021 3 Discontinue d(Refill) documented as of this encounter (statuses as of 12/19/2022) Active Problems Problem Noted Date Immunization not carried out because of patient decision 07/26/2022 Type 2 diabetes mellitus wit h stage 3b chronic kidney disease, without long-term current use of insulin 04/26/2022 Hypertensive kidney disease with stage 3 b chronic kidney disease 04/26/2022 Pulmonary hypertension 04/26/2022 Type 2 diabetes mellitus with diabetic c ataract 04/26/2022 Dyslipidemia, goal LDL below 70 04/26/19 23 Constipation 04/26/2022 Gastro-esophageal reflux disease without esophagitis 07/17/2020 Lung nodule 08/14/2019 Coronary artery disease invo lving [place] coronary artery of [place] heart without angina pectoris 08/30/2018 Diabetes mellitus type 2 with peripheral artery disease 05/17/2018 Centrilobular emphysema 05/14/2018 Nocturnal hypoxemia 05/14/2018 MGUS (monoclonal gammopathy of unknown s ignificance) 09/25/2017 Gastric ulcer 02/21/2017 Type 2 diabetes mellitus with hemoglobin A1c goal of less than 8.0% 10/27/2016 Allergy to iodinated contrast 09/01/2016 Family history of ischemic heart disease 07/25/2016 OMARI (obstructive sleep apnea) 07/25/2016 COPD, group D, by GOLD 2017 classificati on 07/25/2016 Overview: Centrilobular emphysema in the upper lobes without suspicious pulmonary nodule. Lung Rads Category 1: Negative. No nodules/definitely benign nodules. Recommendation: Continue annual screening with LDCT in 12 months Persistent insomnia 04/28/2015 Central retinal vein occlusion 5 Hypertensive retinopathy 01/06/2015 Advanced directives, counseling/discussi on 04/02/2013 Overview: No, Advance Directive brochure given to patient at prior appointment. Hypertension with goal blood pressure le ss than 140/80 Tobacco use disorder documented as of this encounter (statuses as of 12/19/2022) Resolved Problems Problem Noted Date Resolved Date Chronic kidney disease, stage 3b 09/01/2020 04/26/2022 Overview: Per CKD protocol Hypertension associated with stage 3b chronic kidney disease due to type 2 diabetes mellitus 07/28/2020 04/26/2022 Overview: Per CKD protocol Dyslipidemia, goal LDL below 100 07/17/2020 07/17/2020 Preoperative respiratory examination 02/27/2020 01/05/2021 Type 2 DM with CKD stage 3 and hypertension 04/2107/30/2020 Overview: Per CKD protocol Cirrhosis of liver 05/17/2018 05/17/2018 Pulmonary hypertension 01/31/2017 Cirrhosis of liver without ascites 10/25/2016 05/17/2018 CA (dyspnea on exertion) 07/25/20162017 Localized edema 07/25/2016 03/05/2019 COPD exacerbation 01/22/2016 09/25/2017 Vitreous hemorrhage 05/25/2015 10/10/2017 Retinal edema 01/06/2015 09/25/2017 Kidney disease, chronic, stage III (GFR 30-59 ml /min) 10/20/2014 05/29/2018 Overview: Per CKD protocol #1 PAD (peripheral artery disease) 07/22/2014 05/17/2018 Postmenopausal atrophic vaginitis 06/05/2013 03/05/2019 Urge incontinence of urine 06/05/201307/22 Impaired fasting glucose 02/22/2013 018 Urinary, incontinence, stress female 03/05/2019 Urinary incontinence without sensory awareness 06/05/2013 Tubular adenoma of colon 018 documented as of this encounter (statuses as of 12/19/2022) Immunizations Name Administration Dates Next Due HEP [...] 0.6 oz pur e alcohol) rare wine Food Insecurity Answer Date Recorded Within the past 12 months, y ou worried that your food would run out before you got money to buy more. Never true 03/05/2019 Within the past 12 months, t he food you bought just didn't last and you didn't have money to get more. Never true 03/05/2019 Sex Assigned at Date Recorded Female 07/21/2020 3:22 PM E DT Job Start Date Occupation Industry Not on file Not on file Not on file documented as of this encounter Miscellaneous Notes * Telephone Encounter - Benny Benitez DO - 12/19/2022 6:03 PM EDTSigned Prescriptions: Disp Refills Spironolactone 25 MG Oral Tablet (Aldacton*64 Tab*3 Sig: TAKE ONE TABLET BY MOUTH ON MONDAY, MONDAY, AND MONDAY. TAKE ONE-HALF TABLET ON ALL OTHER DAYS OF THE WEEK Authorizing Provider: BENNY BENITEZ * Telephone Encounter - Florinda Torres CMA - 12/19/2022 11:22 AM EDTPending Prescriptions: Disp Refills Spironolactone 25 MG Oral Tablet (Aldacton*64 Tab*3 Sig: TAKE ONE TABLET BY MOUTH ON MONDAY, MONDAY, AND MONDAY. TAKE ONE-HALF TABLET ON ALL OTHER DAYS OF THE WEEK * Telephone Encounter - Florinda Torres CMA - 12/19/2022 11:22 AM EDT Did you pend patient's preferred pharmacy and medication before forwarding?yes Pharmacy: [facility] Pending Prescriptions: Disp Refills Spironolactone 25 MG Oral Tablet (Aldacto*64 Tab*3 Sig: TAKE ONE TABLET BY MOUTH ON MONDAY, MONDAY, AND MONDAY. TAKE ONE-HALF TABLET ON ALL OTHER DAYS OF THE WEEK Last Visit: 02/17/2022 (in office), Visit date not found (telemedicine) Next Visit: Visit date not found If no future appointments scheduled, and last appointment is greater than a year ago, please schedule patient for a follow-up appointment Last date the medication was ordered: Is this request for a controlled substance?No Urine Drug Screen:No results found. However, due to the size of the patient record, not all encounters were searched. Please check Results Review for a complete set of results. Patient Phone Numbers Labs: Lab Results Component Value Date/Time CREAT 1.4 (H) 10/27/2022 01:32 PM CREAT 1.4 (H) 02/11/2020 02:58 PM POTASSIUM 4.4 10/27/2022 01:32 PM POTASSIUM 4.5 02/11/2020 02:58 PM TSH 4.93 (H) 12/29/2016 01:35 PM LDLCALC 75 10/27/2022 01:32 PM LDLCALC 67 12/06/2019 10:23 AM LDLDIRECT NOT APPLICABLE 12/06/2019 10:23 AM LDLDIRECT 74 06/27/2016 10:44 AM ALT 24 10/27/2022 01:32 PM ALT 27 12/06/2019 10:23 AM HGBA1C 6.7 (H) 10/27/2022 01:32 PM HGBA1C 10.5 (H) 02/24/2020 12:36 PM documented in this encounter Plan of Treatment Upcoming Encounters Date Type Specialty Care Team Description 12/28/2022 Imaging Radiology Gw, Excess Time Radiology [address] [place] [id number] 12/28/2022 Imaging Radiology 01/25/2023 Office Visit Cardiology Laquita Leija CRNP [address] [place] [address] 02/03/2023 Office Visit Gastroenterology Jelly Mills CRNP [address] [place] [address] 02/22/2023 Office Visit Sleep Disorders Aminata Quiroz CRNP [address] [place] [address] 05/02/2023 Office Visit Family Medicine Sandra Rasheed MD [address] [place] [address] [place] [address] 07/31/2023 Nurse Only Ancillary [place], Nurse Annual Wellness [address] [place] [address] [place] [address] Health Maintenance Due Date Last Done Comments COVID-19 Vaccine (#1) 04/04/1946 Zoster Vaccines (1 of 2) 1996 *ADVANCE DIRECTIVE NOT ON FILE 09/01/2018 DISCUSS TOBACCO CESSATION (REFER TO SMARTSET #3291) 12/02/2021 12/02/2020 Influenza Vaccine (FLU shot) (#1) 2022 12/03/2013 Albumin/Creatinine Ratio 04/26/2023 023, 08/10/2020, 12/06/2019, Additional history exists CKD PHOS USE SMARTSET 98036 04/26/2023 02/0 09/2022, 04/21/2021, 12/06/2019, Additional history exists Diabetic Foot Exam 04/26/2023 04/26/2022, 0 07/22/2021, 07/21/2020, Additional history exists GFR 04/29/2023 10/27/2022, 0209/2022, 12/20/2021, Additional history exists HbA1c 04/29/2023 10/27/2022, 020 09/2022, 04/21/2021, Additional history exists DXA Scan 07/24/2023 07/23/2020, 07/20, 03/25/2013 Depression Screening 07/27/2023 07/26/2022 DIABETES-EYE EXAM 08/11/2023 08/10/2022, , 03/22/2021, Additional history exists CKD HGB USE SMARTSET 43410 10/28/202310/27, 10/27/2022, 04/26/2022, Additional history exists O2 [...] this encounter Medical Devices Implanted Type Area Emergency Care Attendant Device Identifier Shelf Expiration Date Model / Serial / Lot Gynecare Tvt Device Implanted:Qty: 1 on 06/18/2013 at OR [facility] N/A: Bladder 02/17/2016 [id number] / / [id number] documented as of this encounter Visit Diagnoses Diagnosis Hypertension goal BP (blood pressure) < 150/90 Localized edema Edema documented in this encounter Care Teams Rn Orthopaedic Relationship Specialty Start Date End Date Sandra Rasheed MD [address] [place] [address] [place] [address] PCP - General Family Medicine 06/05/15 documented as of this encounter
--- OUTSIDE RECORDS SUMMARY | 2023-06-01 07:19 | External Medical Summary | Summary of Care ---
Author Name Unknown Organization [facility] Address [address] [place] [address] Phone [phone] Care Team Providers Care Draw Bench Operator Name Role Phone Sandra Rasheed MD Primary Care Provide r Encounter Details Date Type Department Care Team Description 12/28/2022 Orders Only Unspecified Department Alverto Sykes, DO [address] [place] [address] Allergies Active Allergy Reactions Severity Noted Date Comments Influenza Vaccines 01/06/2015 Had flu symptoms x 1 month after injection Iodinated Contrast Media High 09/01/2016 Hives 48 hours post cardiac cath. No respiratory symptoms Sulfa Antibiotics Unknown 02/22/2013 documented as of this encounter (statuses as of 12/28/2022) Medications Medication Sig Dispensed Refills Start Date End Date Status ASPIRIN 81 MG PO TABS Take by mouth at bedtime. 0 Active Cholecalciferol 1000 UNITS Capsule Take 1 Capsule by mouth at bedtime. 30 Cap 3 09/09/2016 Active meclizine (ANTIVERT) 25 MG TabletIndications:Gi daren script for 8 tablets to use x 5 days at [facility] 06-14-18 Take 1 Tab by mouth 3 times a day as needed for Dizziness. Indications: Given script for 8 tablets to use x 5 days at [facility] 06-14-18 90 Tab 0 10/31/2018 Active CPAP every night at bedtime. 0 Active Olopatadine HCl 0.2 % Ophthalmic Solution (Patadaramonita) Instill 1 Drop into both eyes daily. 5 mL 12 08/06/2020 Active OneTouch Delica Plus [id number] :Type 2 diabetes mellitus with hemoglobin A1c goal of less than 8.0% ([facility]) Use to test blood [...] hemoglobin A1c goal of less than 8.0% ([facility]) TAKE ONE TABLET BY [...] hemoglobin A1c goal of less than 8.0% ([facility]) USE TO TEST BLOOD [...] COPD, group D, by GOLD 2017 classification ([facility]) Inhale 1 Puff by [...] morning. 90 Capsule 3 12/26/2022 12/26/2023 Active documented as of this encounter (statuses as of 12/28/2022) Active Problems Problem Noted Date Immunization not [...] nodule 08/14/2019 Coronary artery disease invo lving [place] coronary artery of [place] heart without angina pectoris 08/30/2018 Diabetes mellitus [...] as of this encounter (statuses as of 12/28/2022) Resolved Problems Problem Noted Date Resolved Date [...] of liver 05/17/2018 05/17/2018 Pulmonary hypertension 01/31/2017 1 Cirrhosis of liver without ascites 10/25/2016 05/17/2018 [...] as of this encounter (statuses as of 12/28/2022) Immunizations Name Administration Dates Next Due HEP [...] as of this encounter Miscellaneous Notes * Result Encounter Note - Alverto Sykes DO - 12/28/2022 5:23 PM EDT Cardiology nursing: Please notify patient that her nuclear stress test was normal. Continue presenttreatment. Copy Dr. Rasheed as an FYI for the purpose of future coordination of care. Alverto Sykes DO documented in this encounter Plan of Treatment Upcoming Encounters Date Type Specialty Care Team Description 01/25/2023 Office Visit Cardiology Laquita Leija CRNP [address] [place] [address] 02/03/2023 Office Visit Gastroenterology Jelly Mills CRNP [address] [place] [address] 02/22/2023 Office Visit Sleep Disorders Aminata Quiroz CRNP [address] [place] [address] 05/02/2023 Office Visit Family Medicine Sandra Rasheed MD [address] [place] [address] [place] [address] 07/31/2023 Nurse Only Ancillary [place] Nurse Annual Wellness [address] [place] [address] [place] [address] Scheduled Procedures Name Priority Associated Diagnoses Date/Ti [...] Additional history exists CKD PHOS USE SMARTSET 34529 04/26/20230 09/2022, 04/21/2021, 12/06/2019, Additional history exists Diabetic Foot Exam 04/26/2023 04/26/2022, 0 07/22/2021, 07/21/2020, Additional history exists GFR 04/29/2023 10/27/2022, 09/2022, 12/20/2021, Additional history exists HbA1c 04/29/2023 10/27/2022, 0 09/2022, 04/21/2021, Additional history exists DXA Scan 07/24/2023 07/23/2020, 07/20, 03/25/2013 Depression Screening 07/27/2023 07/26/2022 DIABETES-EYE EXAM 08/11/2023 08/10/2022, , 03/22/2021, Additional history exists CKD HGB USE SMARTSET 59591 10/28/202310/27, 10/27/2022, 04/26/2022, Additional history exists O2 [...] this encounter Medical Devices Implanted Type Area Snow Plow Tractor Operator Device Identifier Shelf Expiration Date Model / Serial / Lot Gynecare Tvt Device Implanted:Qty: 1 on 06/18/2013 at OR [facility] N/A: Bladder 02/17/2016 [id number] / / [id number] documented as of this encounter Procedures Procedure Name Priority Date/Time Associated Diagnosis Comments NM MYOCARDIAL PERFUSION IMAGING SPECT MULTIPLE STUDIES WITH PHARMACOLOGIC INTERVENTION Routine 12/28/2022 12:20 PM EDT documented in this encounter Results * NM MYOCARDIAL PERFUSION IMAGING SPECT MULTIPLE STUDIES WITH PHARMACOLOGIC INTERVENTION (12/28/2022 12:20 PM EDT) 12/28/2022 12:2 0 PM EDT Alverto Sykes DO RAD NUCLEAR MED Performing Organization Address City/State/[facility] Co sd Phone Number [facility] documented in this encounter Care Teams Draw Bench Operator Relationship Specialty Start Date End Date Sandra Rasheed MD [address] [place] [address] [place] [phone] PCP - General Family Medicine 06/05/15 documented as of this encounter
--- OUTSIDE RECORDS SUMMARY | 2023-06-01 07:19 | External Medical Summary | Summary of Care ---
Author Name Unknown Organization [facility] Address [address] [facility] [place] [address] Phone [phone] Care Team Providers Care Snag Grinder Name Role Phone Sandra Rasheed MD Primary Care Provide r Reason for Visit * Reason Comments Medication Refill Encounter Details Date Type Department Care Team Description 12/24/2022 Refill Cardiology [address] [place] [address] Benny Benitez, DO [address] [place] [address] Dyslipidemia, goal LDL below 130; Hypertension goal BP (blood pressure) < 150/90 Allergies Active Allergy Reactions Severity Noted Date Comments Influenza Vaccines 01/06/2015 Had flu symptoms x 1 month after injection Iodinated Contrast Media High 09/01/2016 Hives 48 hours post cardiac cath. No respiratory symptoms Sulfa Antibiotics Unknown 02/22/2013 documented as of this encounter (statuses as of 12/26/2022) Medications Medication Sig Dispensed Refills Start Date End Date Status ASPIRIN 81 MG PO TABS Take by mouth at bedtime. 0 Active Cholecalciferol 1000 UNITS Capsule Take 1 Capsule by mouth at bedtime. 30 Cap 3 09/09/2016 Active meclizine (ANTIVERT) 25 MG TabletIndications:Ami riveraen script for 8 tablets to use x 5 days at [facility] 06-14-18 Take 1 Tab by mouth 3 times a day as needed for Dizziness. Indications: Given script for 8 tablets to use x 5 days at [facility] 06-14-18 90 Tab 0 10/31/2018 Active CPAP every night at bedtime. 0 Active Olopatadine HCl 0.2 % Ophthalmic Solution (Pataday) Instill 1 Drop into both eyes daily. 5 mL 12 08/06/2020 Active OneTouch Delica Plus [id number] s:Type 2 diabetes mellitus with hemoglobin A1c [...] morning. 90 Capsule 3 12/26/2022 4 Active Omeprazole 20 MG Oral Capsule Delayed Release (PriLOSEC)Indicatio ns:Hypertension goal BP (blood pressure) < 150/90 TAKE 1 TABLET BY MOUTH DAILY ONE HOUR BEFORE THE FIRST MEAL OF THE DAY 90 Capsule 3 12/27/2021 3 Discontinue d(Refill) Atorvastatin Calcium 40 MG Oral Tablet (Lipitor)Indication s:Dyslipidemia, goal LDL below 130,Hypertension goal BP (blood pressure) < 150/90 TAKE ONE TABLET BY MOUTH EVERY DAY 90 Tablet 3 12/27/2021 3 Discontinue d(Refill) documented as of this encounter (statuses as of 12/26/2022) Active Problems Problem Noted Date Immunization not [...] nodule 08/14/2019 Coronary artery disease invo lving [place] coronary artery of [place] heart without angina pectoris 08/30/2018 Diabetes [...] as of this encounter (statuses as of 12/26/2022) Resolved Problems Problem Noted Date Resolved Date [...] as of this encounter (statuses as of 12/26/2022) Immunizations Name Administration Dates Next Due HEP [...] Telephone Encounter - Benny Benitez DO - 12/26/2022 3:54 PM EDTSigned Prescriptions: Disp Refills Atorvastatin Calcium 40 MG Oral Tablet (Li*90 Tab*3 Sig: Take 1 Tablet by mouth in the morning. Authorizing Provider: BENNY BENITEZ Omeprazole 20 MG Oral Capsule Delayed Rele*90 Cap*3 Sig: Take 1 Capsule by mouth in the morning. Authorizing Provider: BENNY BENITEZ - * Telephone Encounter - Henok Escobar RN - 12/26/2022 8:49 AM EDTPending Prescriptions: Disp Refills Atorvastatin Calcium 40 MG Oral Tablet (Li*90 Tab*3 Sig: Take 1 Tablet by mouth in the morning. Omeprazole 20 MG Oral Capsule Delayed Rele*90 Cap*3 Sig: Take 1 Capsule by mouth in the morning. * Telephone Encounter - Henok Escobar RN - 12/26/2022 8:47 AM EDT Pending Prescriptions: Disp Refills Atorvastatin Calcium 40 MG Oral Tablet (L*90 Tab*3 Sig: Take 1 Tablet by mouth in the morning. Omeprazole 20 MG Oral Capsule Delayed Rel*90 Cap*3 Sig: Take 1 Capsule by mouth in the morning. Last Visit: 02/17/2022 (in office), Visit date not found (telemedicine) Next Visit: Visit date not found Last medication order date: 12/27/2021 Have you choosen a preferred pharm?? yes Patient Active Problem List Diagnosis Code Hypertension with goal blood pressure less than 140/80 I10 Advanced directives, counseling/discussion Z71.89 Central retinal vein occlusion H34.8192 Hypertensive retinopathy H35.039 Persistent insomnia G47.00 Tobacco use disorder F17.200 Family history of ischemic heart disease Z82.49 OMARI (obstructive sleep apnea) G47.33 COPD, group D, by GOLD 2017 classification ([facility]) J44.9 Allergy to iodinated contrast Z91.041 Type 2 diabetes mellitus with hemoglobin A1c goal of less than 8.0% ([facility]) E11.9 Gastric ulcer K25.9 MGUS (monoclonal gammopathy of unknown significance) D47.2 Centrilobular emphysema ([facility]) J43.2 Nocturnal hypoxemia G47.34 Diabetes mellitus type 2 with peripheral artery disease ([facility]) E11.51 Coronary artery disease involving [place] coronary artery of [place] heart without angina pectoris I25.10 Lung nodule R91.1 Gastro-esophageal reflux disease without esophagitis K21.9 Type 2 diabetes mellitus with stage 3b chronic kidney disease, without long-term current use of insulin ([facility]) E11.22, N18.32 Hypertensive kidney disease with stage 3b chronic kidney disease ([facility]) I12.9, N18.32 Pulmonary hypertension (HCC) I27.20 Type 2 diabetes mellitus with diabetic cataract (HCC) E11.36 Dyslipidemia, goal LDL below 70 E78.5 Constipation K59.00 Immunization not carried out because of patient decision Z28.20 Labs: Lab Results Component Value Date/Time CREATININE - [facility] 1.4 (H) 10/27/2022 01:32 PM CREATININE - [facility] 1.4 (H) 02/11/2020 02:58 PM CREATININE, RANDOM URINE - [facility] 38 04/26/2022 01:34 PM CREATININE, RANDOM URINE - [facility] 146 12/06/2019 10:25 AM CREATININE-OU[facility]IDE [facility] 1.5 (A) 04/25/2018 12:00 AM Lab Results Component Value Date/Time POTASSIUM - [facility] 4.4 10/27/2022 01:32 PM POTASSIUM - [facility] 4.5 02/11/2020 02:58 PM POTASSIUM-OUTSIDE LAB 4.5 04/25/2018 12:00 AM Lab Results Component Value Date/Time TSH - [facility] 4.93 (H) 12/29/2016 01:35 PM Lab Results Component Value Date/Time LDL (CALCULATED)-[facility]IDE LAB 72 11/12/2013 12:00 AM LDL CHOLESTEROL (CALCULATED) - [facility] 75 10/27/2022 01:32 PM LDL CHOLESTEROL (CALCULATED) - [facility] 60 04/26/2022 01:34 PM LDL CHOLESTEROL (CALCULATED) - [facility] 67 12/06/2019 10:23 AM LDL CHOLESTEROL (CALCULATED) - [facility] 70 10/09/2017 08:31 AM LDL CHOLESTEROL (DIRECT MEASURE) - [facility] NOT APPLICABLE 12/06/2019 10:23 AM LDL CHOLESTEROL (DIRECT MEASURE) - [facility] NOT APPLICABLE 10/09/2017 08:31 AM LDL CHOLESTEROL (DIRECT MEASURE) - [facility] 74 06/27/2016 10:44 AM LDL CHOLESTEROL (DIRECT MEASURE) - [facility] 84 03/03/2016 08:25 AM Lab Results Component Value Date/Time ALT - [facility] 24 10/27/2022 01:32 PM ALT - [facility] 27 12/06/2019 10:23 AM ALT LIVER FIB PANEL 20 09/08/2016 08:14 AM ALTERNARIA IGE - [facility] <0.10 02/17/2016 10:41 AM Hemoglobin AIC Results: Lab Results Component Value Date/Time HEMOGLOBIN A1C - [facility] 6.7 (H) 10/27/2022 01:32 PM HEMOGLOBIN A1C - [facility] 6.4 (H) 04/26/2022 01:34 PM HEMOGLOBIN A1C - [facility] 6.2 (H) 04/21/2021 09:15 AM HEMOGLOBIN A1C - [facility] 10.5 (H) 02/24/2020 12:36 PM HEMOGLOBIN A1C - [facility] 9.4 (H) 12/06/2019 10:33 AM HEMOGLOBIN A1C - [facility] 8.7 (H) 04/04/2019 12:57 PM * Telephone Encounter - 12/24/2022 12:10 AM EDTPending Prescriptions: Disp Refills Atorvastatin Calcium 40 MG Oral Tablet (Li*90 Tab*3 Sig: TAKE ONE TABLET BY MOUTH EVERY DAY Omeprazole 20 MG Oral Capsule Delayed Rele*90 Cap*3 Sig: TAKE 1 TABLET BY MOUTH DAILY ONE HOUR BEFORE THE FIRST MEAL OF THE DAY documented in this encounter Plan of Treatment Upcoming Encounters Date Type Specialty Care Team Description 12/28/2022 Imaging Radiology Gw, Excess Time Radiology [address] [place] [address] 12/28/2022 Imaging Radiology 01/25/2023 Office Visit Cardiology Laquita Leija CRNP [address] [address] 02/03/2023 Office Visit Gastroenterology Jelly Mills CRNP [address] [place] [address] 02/22/2023 Office Visit Sleep Disorders Aminata Quiroz CRNP [address] [place] [address] 05/02/2023 Office Visit Family Medicine Sandra Rasheed MD [address] [place] [address] [place] [address] 07/31/2023 Nurse Only Ancillary [place], Nurse Annual Wellness [address] [place] [address] [place] [address] Scheduled Procedures Name Priority Associated Diagnoses Date/Ti [...] Additional history exists CKD PHOS USE SMARTSET 06946 04/26/20230 09/2022, 04/21/2021, 12/06/2019, Additional history exists Diabetic Foot Exam 04/26/2023 04/26/2022, 0 07/22/2021, 07/21/2020, Additional history exists GFR 04/29/2023 10/27/2022, 02/0 09/2022, 12/20/2021, Additional history exists HbA1c 04/29/2023 10/27/2022, 02/0 09/2022, 04/21/2021, Additional history exists DXA Scan 07/24/2023 07/23/2020, 07/20, 03/25/2013 Depression Screening 07/27/2023 07/26/2022 DIABETES-EYE EXAM 08/11/2023 08/10/2022, , 03/22/2021, Additional history exists CKD HGB USE SMARTSET 37936 10/28/202310/27, 10/27/2022, 04/26/2022, Additional history exists O2 [...] this encounter Medical Devices Implanted Type Area Licensing And Registration Director Device Identifier Shelf Expiration Date Model / Serial / Lot Gynecare Tvt Device Implanted:Qty: 1 on 06/18/2013 at OR [facility] N/A: Bladder 02/17/2016 [id number] / / [id number] documented as of this encounter Visit Diagnoses Diagnosis Dyslipidemia, goal LDL below 130 Other and unspecified hyperlipidemia Hypertension goal BP (blood pressure) < 150/90 documented in this encounter Care Teams Snag Grinder Relationship Specialty Start Date End Date Sandra Rasheed MD [address] [place] [address] [place] [address] PCP - General Family Medicine 06/05/15 documented as of this encounter
--- OUTSIDE RECORDS SUMMARY | 2023-06-01 07:19 | External Medical Summary | Summary of Care ---
Author Name Unknown Organization [facility] Address [address] [place] [address] Phone [phone] Care Team Providers Care Emergency Communications Operator Name Role Phone Sandra Rasheed MD Primary Care Provide r Reason for Visit * Reason Onset Date Comments Advice 12/28/2022 Encounter Details Date Type Department Care Team Description 12/28/[address] [address] Sandra Rasheed MD [address] [place] [address] [place] [id number] Advice Allergies Active Allergy Reactions Severity Noted Date Comments Influenza Vaccines 01/06/2015 Had flu symptoms x 1 month after injection Iodinated Contrast Media High 09/01/2016 Hives 48 hours post cardiac cath. No respiratory symptoms Sulfa Antibiotics Unknown 02/22/2013 documented as of this encounter (statuses as of 12/30/2022) Medications Medication Sig Dispensed Refills Start Date End Date Status ASPIRIN 81 MG PO TABS Take by mouth at bedtime. 0 Active Cholecalciferol 1000 UNITS Capsule Take 1 Capsule by mouth at bedtime. 30 Cap 3 09/09/2016 Active meclizine (ANTIVERT) 25 MG TabletIndications:Gi daren script for 8 tablets to use x 5 days at [facility] 06-14-18 Take 1 Tab by mouth 3 times a day as needed for Dizziness. Indications: Given script for 8 tablets to use x 5 days at [facility] 06-14-18 90 Tab 0 10/31/2018 Active CPAP every night at bedtime. 0 Active Olopatadine HCl 0.2 % Ophthalmic Solution (Pataday) Instill 1 Drop into both eyes daily. 5 mL 12 08/06/2020 Active OneTouch Delica Plus [id number] :Type 2 diabetes mellitus with hemoglobin A1c [...] as of this encounter (statuses as of 12/30/2022) Active Problems Problem Noted Date Immunization not [...] nodule 08/14/2019 Coronary artery disease invo lving [place] coronary artery of [place] heart without angina pectoris 08/30/2018 Diabetes mellitus [...] as of this encounter (statuses as of 12/30/2022) Resolved Problems Problem Noted Date Resolved Date [...] as of this encounter (statuses as of 12/30/2022) Immunizations Name Administration Dates Next Due HEP [...] Telephone Encounter - Cha Mcclendon RN - 12/30/2022 10:21 AM EDT Patient feeling better, she was calling the other day to see what meds she could take with the stress test, she did well and they will follow up with her. She also had her lung screening CT done too. * Telephone Encounter - Cha Mcclendon RN - 12/28/2022 3:24 PM EDT Tried to rtn patient call, unable to leave a message, I will try later. documented in this encounter Plan of Treatment Upcoming Encounters Date Type Specialty Care Team Description 01/25/2023 Office Visit Cardiology Laquita Leija CRNP [address] [place] [address] 02/03/2023 Office Visit Gastroenterology Jelly Mills CRNP [address] [place] [address] 02/22/2023 Office Visit Sleep Disorders Aminata Quiroz CRNP [address] [place] [address] 05/02/2023 Office Visit Family Medicine Sandra Rasheed MD [address] [place] [address] [place] [address] 07/31/2023 Nurse Only Ancillary Hank, Nurse Annual Wellness [address] [place] [address] [place] [address] Scheduled Procedures Name Priority Associated Diagnoses Date/Ti [...] Additional history exists CKD PHOS USE SMARTSET 65682 04/26/202309/2022, 04/21/2021, 12/06/2019, Additional history exists Diabetic Foot Exam 04/26/2023 04/26/2022, 0 07/22/2021, 07/21/2020, Additional history exists GFR 04/29/2023 10/27/2022, 020 09/2022, 12/20/2021, Additional history exists HbA1c 04/29/2023 10/27/2022, 020 09/2022, 04/21/2021, Additional history exists DXA Scan 07/24/2023 07/23/2020, 07/20, 03/25/2013 Depression Screening 07/27/2023 07/26/2022 DIABETES-EYE EXAM 08/11/2023 08/10/2022, , 03/22/2021, Additional history exists CKD HGB USE SMARTSET 19149 10/28/202310/27, 10/27/2022, 04/26/2022, Additional history exists O2 [...] this encounter Medical Devices Implanted Type Area Wardrobe Stylist Device Identifier Shelf Expiration Date Model / Serial / Lot Gynecare Tvt Device Implanted:Qty: 1 on 06/18/2013 at OR [facility] N/A: Bladder 02/17/2016 [id number] / / [id number] documented as of this encounter Care Teams Emergency Communications Operator Relationship Specialty Start Date End Date Sandra Rasheed MD [address] [place] [address] [place] [address] PCP - General Family Medicine 06/05/15 documented as of this encounter
--- OUTSIDE RECORDS SUMMARY | 2023-06-01 07:19 | External Medical Summary | Summary of Care ---
Author Name Unknown Organization [facility] Address [address] [place] [address] Phone [phone] Care Team Providers Care Cleaner Housekeeping Name Role Phone Sandra Rasheed MD Primary Care Provide r Reason for Visit * Reason Onset Date Comments Appointment 12/12/2022 Sleep Medicine Encounter Details Date Type Department Care Team Description 12/12/2022 Telephone Family Medicine [address] [address] Susy Ochoa PA-C [address] [place] [address] [place] [phone] Appointment (Sleep Medicine ) Allergies Active Allergy Reactions Severity Noted Date Comments Influenza Vaccines 01/06/2015 Had flu symptoms x 1 month after injection Iodinated Contrast Media High 09/01/2016 Hives 48 hours post cardiac cath. No respiratory symptoms Sulfa Antibiotics Unknown 02/22/2013 documented as of this encounter (statuses as of 12/13/2022) Medications Medication Sig Dispensed Refills Start Date End Date Status ASPIRIN 81 MG PO TABS Take by mouth at bedtime. 0 Active Cholecalciferol 1000 UNITS Capsule Take 1 Capsule by mouth at bedtime. 30 Cap 3 09/09/2016 Active meclizine (ANTIVERT) 25 MG TabletIndications:Gi daren script for 8 tablets to use x 5 days at [facility] 06-14-18 Take 1 Tab by mouth 3 times a day as needed for Dizziness. Indications: Given script for 8 tablets to use x 5 days at [facility] 06-14-18 90 Tab 0 10/31/2018 Active CPAP every night at bedtime. 0 Active Olopatadine HCl 0.2 % Ophthalmic Solution (Pataday) Instill 1 Drop into both eyes daily. 5 mL 12 08/06/2020 Active OneTouch Delica Plus [id number] :Type 2 diabetes mellitus with hemoglobin A1c goal of less than 8.0% ([facility]) Use to test blood sugar [...] hemoglobin A1c goal of less than 8.0% ([facility]) TAKE ONE TABLET BY MOUTH [...] hemoglobin A1c goal of less than 8.0% ([facility]) USE TO TEST BLOOD SUGAR UP TO TWICE DAILY 200 Strip 3 01/21/2022 03/02/2023 Active Omeprazole 20 MG Oral Capsule Delayed Release (PriLOSEC)Indication s:Hypertension goal BP (blood pressure) < 150/90 TAKE 1 TABLET BY MOUTH DAILY ONE HOUR BEFORE THE FIRST MEAL OF THE DAY 90 Capsule 3 12/27/2021 01/01/2023 Active Atorvastatin Calcium 40 MG Oral Tablet (Lipitor)Indications :Dyslipidemia, goal LDL below 130,Hypertension goal BP (blood pressure) < 150/90 TAKE ONE TABLET BY MOUTH EVERY DAY 90 Tablet 3 12/27/2021 01/01/2023 Active Spironolactone 25 MG Oral Tablet (Aldactone)Indicatio ns:Hypertension goal BP (blood pressure) < 150/90,Localized edema TAKE ONE TABLET BY MOUTH ON MONDAY, MONDAY, AND MONDAY. TAKE ONE-HALF TABLET ON ALL OTHER DAYS OF THE WEEK 64 Tablet 3 12/27/2021 12/30/2022 Active Torsemide 10 MG Oral Tablet (Demadex)Indications [...] every evening. 60 Each 2 12/12/2022 Active documented as of this encounter (statuses as of 12/13/2022) Active Problems Problem Noted Date Immunization not [...] artery disease invo lving [place] coronary artery of [place] heart without angina pectoris 08/30/2018 Diabetes mellitus [...] as of this encounter (statuses as of 12/13/2022) Resolved Problems Problem Noted Date Resolved Date [...] as of this encounter (statuses as of 12/13/2022) Immunizations Name Administration Dates Next Due HEP [...] Notes * Telephone Encounter - Manish Lawrence - 12/13/2022 2:45 PM EDT Placed on wait list. Nothing sooner * Telephone Encounter - OMARI Cummings - 12/12/2022 4:11 PM EDT Spencer kelly Ochoa today, she would like to see if her Sleep Medicine appt with Aminata Howard Yobani could be moved up at all. I could not find any sooner appts. Thanks so much for your help. documented in this encounter Plan of Treatment Upcoming Encounters Date Type Specialty Care Team Description 12/28/2022 Imaging Radiology Gw, Excess Time Radiology [address] [place] [address] 12/28/2022 Imaging Radiology 01/25/2023 Office Visit Cardiology Laquita Leija CRNP [address] [place] [address] 02/03/2023 Office Visit Gastroenterology Jelly Mills CRNP [address] [place] [address] 02/22/2023 Office Visit Sleep Disorders Aminata Quiroz CRNP [address] [place] [address] 05/02/2023 Office Visit Family Medicine Sandra Rasheed MD [address] [place] [address] [place] [address] 07/31/2023 Nurse Only Ancillary [place], Nurse Annual Wellness [address] [place] [address] [place] [address] Health Maintenance Due Date Last Done Comments COVID-19 Vaccine (#1) 04/04/1946 Zoster Vaccines (1 of 2) 1996 *ADVANCE DIRECTIVE NOT ON FILE 09/01/2018 DISCUSS TOBACCO CESSATION (REFER TO SMARTSET #3291) 12/02/2021 12/02/2020 Influenza Vaccine (FLU shot) (#1) 2022 12/03/2013 Albumin/Creatinine Ratio 04/26/2023 023, 08/10/2020, 12/06/2019, Additional history exists CKD PHOS USE SMARTSET 90201 04/26/20230 09/2022, 04/21/2021, 12/06/2019, Additional history exists Diabetic Foot Exam 04/26/2023 04/26/2022, 0 07/22/2021, 07/21/2020, Additional history exists GFR 04/29/2023 10/27/2022, 02/0 09/2022, 12/20/2021, Additional history exists HbA1c 04/29/2023 10/27/2022, 02/0 09/2022, 04/21/2021, Additional history exists DXA Scan 07/24/2023 07/23/2020, 07/20, 03/25/2013 Depression Screening 07/27/2023 07/26/2022 DIABETES-EYE EXAM 08/11/2023 08/10/2022, , 03/22/2021, Additional history exists CKD HGB USE SMARTSET 84604 10/28/202310/27, 10/27/2022, 04/26/2022, Additional history exists O2 ASSESSMENT COMPLETED IN PAST YEAR FOR COPD 12/13/2023 12/12/2022 COLONOSCOPY-EVERY 3 YRS AGES 18-100 07/13/2025 07/13/2022, 02/27/2020, 02/27/2020, Additional history exists DTaP,Tdap,and Td Vaccines (3 - Td or Tdap) 08/12/2032 08/12/2022, 02/22/2013 Pneumococcal Vaccine: 65+ Years Completed 06/15/2015, 02/22/2013 Alpha-1 Antitrypsin Completed 09/08/2016 Hepatitis B Completed 08/21/2017, 07/2017, 02/17/2017 GARDASIL-HPV IMMUNIZATION SERIES Aged Out No longer eligible based on patient's age to complete this topic MENINGOCOCCAL (MENACTRA/MENVEO) Aged Out No longer eligible based on patient's age to complete this topic documented as of this encounter Medical Devices Implanted Type Area Toddler Nanny Device Identifier Shelf Expiration Date Model / Serial / Lot Gynecare Tvt Device Implanted:Qty: 1 on 06/18/2013 at OR [facility] N/A: Bladder 02/17/2016 [id number] / / [id number] documented as of this encounter Care Teams Cleaner Housekeeping Relationship Specialty Start Date End Date Sandra Rasheed MD [address] [place] [address] [place] [address] PCP - General Family Medicine 06/05/15 documented as of this encounter
--- OUTSIDE RECORDS SUMMARY | 2023-06-01 07:20 | External Medical Summary | Summary of Care ---
Author Name Unknown Organization [facility] Address [address] [place] [address] Phone [phone] Care Team Providers Care Certified Nutritionist Name Role Phone Sandra Rasheed MD Primary Care Provide r Reason for Visit * Reason Onset Date Comments Appointment 12/12/2022 Sleep Medicine Encounter Details Date Type Department Care Team Description 12/12/2022 Telephone Family Medicine [address] [address] Susy Ochoa PA-C [address] [place] [address] [place] [phone] Appointment (Sleep Medicine ) Allergies Active Allergy [...] tablets to use x 5 days at [facility] 06-14-18 Take 1 Tab by mouth 3 times a day as needed for Dizziness. Indications: Given script for 8 tablets to use x 5 days at [facility] 06-14-18 90 Tab 0 10/31/2018 Active CPAP every night at bedtime. 0 Active Olopatadine HCl 0.2 % Ophthalmic Solution (Pataday) Instill 1 Drop into both eyes daily. 5 mL 12 08/06/2020 Active OneTouch Delica Plus [id number] :Type 2 diabetes mellitus with hemoglobin A1c [...] nodule 08/14/2019 Coronary artery disease invo lving [place] coronary artery of [place] heart without angina pectoris 08/30/2018 Diabetes mellitus [...] encounter Miscellaneous Notes * Telephone Encounter - OMARI Cummings - 12/12/2022 4:11 PM EDT Spencer saw Susy Ochoa today, she would like to see if her Sleep Medicine appt with Aminata Howard February could be moved up at all. I could not find any sooner appts. Thanks so much for your help. documented in this encounter Plan of Treatment Upcoming Encounters Date Type Specialty Care Team Description 12/28/2022 Imaging Radiology Gw, Excess Time Radiology [address] [place] [id number] 12/28/2022 Imaging Radiology 01/25/2023 Office Visit Cardiology Laquita Leija CRNP [address] [place] [address] 02/03/2023 Office Visit Gastroenterology Jelly Mills CRNP [address] [place] [address] 02/22/2023 Office Visit Sleep Disorders Aminata Quiroz CRNP [address] [place] [address] 05/02/2023 Office Visit Family Medicine Sandra Rasheed MD [address] [place] [address] [place] [address] 07/31/2023 Nurse Only Ancillary Hank Nurse Annual [facility] [address] [place] [address] [place] [address] Health Maintenance Due Date Last Done Comments COVID-19 Vaccine (#1) 04/04/1946 Zoster Vaccines (1 of 2) 1996 *ADVANCE DIRECTIVE NOT ON FILE 09/01/2018 DISCUSS TOBACCO CESSATION (REFER TO SMARTSET #3291) 12/02/2021 12/02/2020 Influenza Vaccine (FLU shot) (#1) 2022 12/03/2013 Albumin/Creatinine Ratio 04/26/2023 023, 08/10/2020, 12/06/2019, Additional history exists CKD PHOS USE SMARTSET 99158 04/26/202309/2022, 04/21/2021, 12/06/2019, Additional history exists Diabetic Foot Exam 04/26/2023 04/26/2022, 0 07/22/2021, 07/21/2020, Additional history exists GFR 04/29/2023 10/27/2022, 02/0 09/2022, 12/20/2021, Additional history exists HbA1c 04/29/2023 10/27/2022, 020 09/2022, 04/21/2021, Additional history exists DXA Scan 07/24/2023 07/23/2020, 07/20, 03/25/2013 Depression Screening 07/27/2023 07/26/2022 DIABETES-EYE EXAM 08/11/2023 08/10/2022, , 03/22/2021, Additional history exists CKD HGB USE SMARTSET 47439 10/28/202310/27, 10/27/2022, 04/26/2022, Additional history exists O2 [...] this encounter Medical Devices Implanted Type Area Leather Goods Assembler Device Identifier Shelf Expiration Date Model / Serial / Lot Gynecare Tvt Device Implanted:Qty: 1 on 06/18/2013 at OR [facility] N/A: Bladder 02/17/2016 [id number] / / [id number] documented as of this encounter Care Teams Certified Nutritionist Relationship Specialty Start Date End Date Sandra Rasheed MD [address] [place] [address] [place] [address] PCP - General Family Medicine 06/05/15 documented as of this encounter
--- OUTSIDE RECORDS SUMMARY | 2023-06-01 07:20 | External Medical Summary | Summary of Care ---
Author Name Unknown Organization [facility] Address [address] [place] [address] Phone [phone] Care Team Providers Care Leather Novelty Parts Cutter Name Role Phone Sandra Rasheed MD Primary Care Provide r Reason for Visit * Reason Comments Emergency Department Follow-Up [facility] 12/08, pt states she's been sick for over 2 weeks, but everything at the ER came back normal. Encounter Details Date Type Department Care Team Description 12/12/2022 Office Visit Family Medicine [address] [address] Susy Ochoa PA-C [address] [place] [address] [place] [address] OMARI (obstructive sleep apnea)*; COPD, group D, by GOLD 2017 classification ([facility]) Allergies Active Allergy Reactions Severity Noted Date Comments Influenza Vaccines 01/06/2015 Had flu symptoms x 1 month after injection Iodinated Contrast Media High 09/01/2016 Hives 48 hours post cardiac cath. No respiratory symptoms Sulfa Antibiotics Unknown 02/22/2013 documented as of this encounter (statuses as of 12/12/2022) Medications Medication Sig Dispensed Refills Start Date End Date Status ASPIRIN 81 MG PO TABS Take by mouth at bedtime. 0 Active Cholecalciferol 1000 UNITS Capsule Take 1 Capsule by mouth at bedtime. 30 Cap 3 09/09/2016 Active meclizine (ANTIVERT) 25 MG TabletIndications:G iven script for 8 tablets to use x 5 days at [facility] 06-14-18 Take 1 Tab by mouth 3 times a day as needed for Dizziness. Indications: Given script for 8 tablets to use x 5 days at [facility] 06-14-18 90 Tab 0 10/31/2018 Active CPAP every night at bedtime. 0 Active Olopatadine HCl 0.2 % Ophthalmic Solution (Pataday) Instill 1 Drop into both eyes daily. 5 mL 12 08/06/2020 Active OneTouch Delica Plus [id number] s:Type 2 diabetes mellitus with hemoglobin A1c goal of less than 8.0% ([facility]) Use to test blood [...] DAY 90 Tablet 3 12/27/2021 3 Active Spironolactone 25 MG Oral Tablet (Aldactone)Indicati ons:Hypertension goal BP (blood pressure) < 150/90,Localized edema TAKE ONE TABLET BY MOUTH ON MONDAY, MONDAY, AND MONDAY. TAKE ONE-HALF TABLET ON ALL OTHER DAYS OF THE WEEK 64 Tablet 3 12/27/2021 3 Active Torsemide 10 [...] :COPD, group D, by GOLD 2017 classification ([facility]) Inhale 1 Puff by [...] 1 Puff by mouth every evening. 60 Blister Dosing Unit 2 12/12/2022 Active Anoro Ellipta 62.5-25 MCG/ACT Inhalation Aerosol Powder Breath Activated (umeclidinium-vilan terol) Inhale 1 Puff by mouth every evening. 60 Blister Dosing Unit 2 08/30/2022 3 Discontinu ed(Refill) documented as of this encounter (statuses as of 12/12/2022) Active Problems Problem Noted Date Immunization not [...] as of this encounter (statuses as of 12/12/2022) Resolved Problems Problem Noted Date Resolved Date [...] as of this encounter (statuses as of 12/12/2022) Immunizations Name Administration Dates Next Due HEP [...] Sign Reading Time Taken Comments Blood Pressure 116/64 12/12/2022 3:22 PM EDT Pulse 69 12/12/2022 3:22 PM EDT Temperature 36.1 C (96.9 F) 12/12/2022 3:22 PM ED T Respiratory Rate - - Oxygen Saturation 95% 12/12/2022 3:22 PM EDT Inhaled Oxygen Concentration - - Weight 83.3 kg (183 lb 11.2 oz) 12/12/2022 3:22 PM EDT Height - - Body Mass Index 33.06 08/30/2022 12:19 PM EDT documented in this encounter Progress Notes * Susy Ochoa PA-C - 12/12/2022 3:24 PM EDT Chief Complaint Patient presents with Emergency Department Follow-Up [facility] 12/08/22, pt states she's been sick for over 2 weeks, but everything at the ER came back normal. Pt here today for ER FU. Pt went to [facility] ER on 12/08/22 - acute COPD exacerbation. Pt had chest xray- all ok. Pulse ox has been ok. Pt has been on 2 abxs and prednisone. They didn't really help. She did have a neb treatment in the hospital and it made her feel worse. She is taking all inhalers as pr escribed. She has appt with sleep/pulm but not until February. Pt is feeling ok right now. Review of patient's allergies indicates: Allergen Reactions [...] tablets to use x 5 days at [facility] 06-14-18 90 Tab 0 CPAP every night at bedtime. Olopatadine HCl 0.2 % Ophthalmic Solution (Patadaramonita) Instill 1 Drop into both eyes daily. 5 mL 12 OneTouch Delica Plus [id number] Use to test blood sugar up to twice daily. Dx E11.9 200 Each 3 Vitamin C 1000 MG Oral Tablet Take 1 Tablet by mouth in the morning. 1 tab daily in the winter. Gabapentin 300 MG Oral Capsule (Neurontin) Take 1 Capsule by mouth at bedtime. Pt is taking three times a day Calcium Carb-Cholecalciferol 600-1000 MG-UNIT Oral Capsule Take by mouth . 1 daily Anoro Ellipta 62.5-25 MCG/ACT Inhalation Aerosol Powder Breath Activated (umeclidinium-vilanterol) Inhale 1 Puff by mouth every evening. 60 Blister Dosing Unit 2 glipiZIDE ER 5 MG Oral Tablet Extended [...] UP TO TWICE DAILY 200 Strip 3 Omeprazole 20 MG Oral Capsule Delayed Release (PriLOSEC) TAKE 1 TABLET BY MOUTH DAILY ONE HOUR BEFORE THE FIRST MEAL OF THE DAY 90 Capsule 3 Atorvastatin Calcium 40 MG Oral Tablet (Lipitor) TAKE ONE TABLET BY MOUTH EVERY DAY 90 Tablet 3 Spironolactone 25 MG Oral Tablet (Aldactone) TAKE ONE TABLET BY MOUTH ON MONDAY, MONDAY, AND MONDAY. TAKE ONE-HALF TABLET ON ALL OTHER DAYS OF THE WEEK 64 Tablet 3 Torsemide 10 MG Oral Tablet (Demadex) [...] 2 days with food 30 Tablet 0 No current facility-administered medications for this visit. Past Medical History: Diagnosis Date COPD (chronic obstructive pulmonary disease) ([facility]) COVID-19 10/25/2021 CRVO (central retinal vein occlusion) OS Dyslipidemia, goal LDL below 130 Hypercholesteremia Hypertension Hypertension goal BP (blood pressure) < 140/90 Hypertensive retinopathy OU Impaired fasting glucose 02/22/2013 Lung nodule PAD (peripheral artery disease) ([facility]) 07/22/2014 Pneumonia 06/08/2015 [facility] 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 [employer] Employer: [employer] Tobacco Use Smoking status: Every Day Packs/day: 2.00 Years: 58.00 Pack years: 116.00 Types: Cigarettes Smokeless tobacco: Never Tobacco comments: 03/30/22 currently smoking 10-15 cig/day - max smoked was 2 ppd Vaping Use Vaping Use: Never used Substance and Sexual Activity Alcohol use: Yes Alcohol/week: 0.0 standard drinks Comment: rare wine Drug use: No Sexual [...] Resource Strain: Not on file Food Insecurity: Not on file Transportation Needs: Not on file Physical Activity: Not on file Stress: Not on file Social Connections: Not on file Intimate Partner Violence: Not on file Housing Stability: Not on file O:Blood pressure 116/64, pulse 69, temperature 36.1 C (96.9 F), weight 83.3 kg (183 lb 11.2 oz), SpO2 95 %, not currently . GENERAL: alert, healthy, and no distress HEART: regular rate & rhythm, murmur, and no gallops LUNGS: chest symmetric with normal AP diameter, no chest deformities noted, no chest wall tenderness, lungs clear to auscultation, decreased breath sounds A:OMARI (obstructive sleep apnea) (Primary) COPD, group D, by GOLD 2017 classification (HCC) Other orders - Anoro Ellipta 62.5-25 MCG/ACT Inhalation Aerosol Powder Breath Activated (umeclidinium-vilanterol); Inhale 1 Puff by mouth every evening. Needs to see pulm sooner. Will make sooner appt when she checks out. Any questions/problems, pleasecall. If anything changes, worsens, develops new sx, please call [facility]. Follow Up: Return if symptoms worsen or fail to improve. Susy Ochoa PA-C documented in this encounter Plan of Treatment Upcoming Encounters Date Type Specialty Care Team Description 12/19/2022 Office Visit Ophthalmology Orlando Ferrer, DO [address] [place] [address] 12/28/2022 Imaging Radiology Gw, Excess Time Radiology [address] [place] [address] 12/28/2022 Imaging Radiology 01/25/2023 Office Visit Cardiology Laquita Leija CRNP [address] [place] [address] 02/03/2023 Office Visit Gastroenterology Jelly Mills CRNP [address] [place] [address] 02/22/2023 Office Visit Sleep Disorders Aminata Quiroz CRNP [address] [place] [address] 05/02/2023 Office Visit Family Medicine Sandra Rasheed MD [address] [place] [address] [place] [address] 07/31/2023 Nurse Only Ancillary Movphillip, Nurse Annual Wellness [address] [place] [address] [place] [address] Health Maintenance Due Date Last Done Comments COVID-19 Vaccine (#1) 04/04/1946 Zoster Vaccines (1 of 2) 1996 *ADVANCE DIRECTIVE NOT ON FILE 09/01/2018 DISCUSS TOBACCO CESSATION (REFER TO SMARTSET #3291) 12/02/2021 12/02/2020 Influenza Vaccine (FLU shot) (#1) 2022 12/03/2013 Albumin/Creatinine Ratio 04/26/2023 023, 08/10/2020, 12/06/2019, Additional history exists CKD PHOS USE SMARTSET 80120 04/26/2023 02/09/2022, 04/21/2021, 12/06/2019, Additional history exists Diabetic Foot Exam 04/26/2023 04/26/2022, 0 07/22/2021, 07/21/2020, Additional history exists GFR 04/29/2023 10/27/2022, 09/2022, 12/20/2021, Additional history exists HbA1c 04/29/2023 10/27/2022, 09/2022, 04/21/2021, Additional history exists DXA Scan 07/24/2023 07/23/2020, 07/20, 03/25/2013 Depression Screening 07/27/2023 07/26/2022 DIABETES-EYE EXAM 08/11/2023 08/10/2022, , 03/22/2021, Additional history exists CKD HGB USE SMARTSET 84640 10/28/202310/27, 10/27/2022, 04/26/2022, Additional history exists O2 ASSESSMENT COMPLETED IN PAST YEAR FOR COPD 12/02/2023 12/01/2022 COLONOSCOPY-EVERY 3 YRS AGES 18-100 07/13/2025 07/13/2022, [...] this encounter Medical Devices Implanted Type Area Coordinator Of Genetic Services Device Identifier Shelf Expiration Date Model / Serial / Lot Gynecare Tvt Device Implanted:Qty: 1 on 06/18/2013 at OR [facility] N/A: Bladder 02/17/2016 [id number] / / [id number] documented as of this encounter Visit Diagnoses Diagnosis OMARI (obstructive sleep apnea)- Primary Obstructive sleep apnea (adult) (pediatric) COPD, group D, by GOLD 2017 classification (HCC) documented in this encounter Care Teams Leather Novelty Parts Cutter Relationship Specialty Start Date End Date Sandra Rasheed MD [address] [place] [address] [place] [address] PCP - General Family Medicine 06/05/15 documented as of this encounter
--- OUTSIDE RECORDS SUMMARY | 2023-06-01 07:20 | External Medical Summary | Summary of Care ---
Author Name Unknown Organization [facility] Address [address] [place] [address] Phone [phone] Care Team Providers Care Morning Caregiver Name Role Phone Sandra Rasheed MD Primary Care Provide r Reason for Visit * Reason Onset Date Comments Advice 12/08/2022 Encounter Details Date Type Department Care Team Description 12/08/[address] [address] Sandra Rasheed MD [address] [place] [address] [place] [phone] Advice Allergies Active Allergy Reactions Severity Noted Date Comments Influenza Vaccines 01/06/2015 Had flu symptoms x 1 month after injection Iodinated Contrast Media High 09/01/2016 Hives 48 hours post cardiac cath. No respiratory symptoms Sulfa Antibiotics Unknown 02/22/2013 documented as of this encounter (statuses as of 12/09/2022) Medications Medication Sig Dispensed Refills Start Date End Date Status ASPIRIN 81 MG PO TABS Take by mouth at bedtime. 0 Active Cholecalciferol 1000 UNITS Capsule Take 1 Capsule by mouth at bedtime. 30 Cap 3 09/09/2016 Active meclizine (ANTIVERT) 25 MG TabletIndications:Gi daren script for 8 tablets to use x 5 days at [facility] 06-14-18 Take 1 Tab by mouth 3 times a day as needed for Dizziness. Indications: Given script for 8 tablets to use x 5 days at [facility] 06-14-18 90 Tab 0 10/31/2018 Active CPAP every night at bedtime. 0 Active Olopatadine HCl 0.2 % Ophthalmic Solution (Pataday) Instill 1 Drop into both eyes daily. 5 mL 12 08/06/2020 Active OneTouch Delica Plus [id number] :Type 2 diabetes mellitus with hemoglobin A1c [...] by mouth . 1 daily 0 Active Anoro Ellipta 62.5-25 MCG/ACT Inhalation Aerosol Powder Breath Activated (umeclidinium-vilant jyoti) Inhale 1 Puff by mouth every evening. 60 Blister Dosing Unit 2 08/30/2022 Active glipiZIDE ER 5 MG Oral Tablet [...] 05/31/2022 4 Active Glucose Blood In Vitro StripIndications:Typ e [...] 3 Active Spironolactone 25 MG Oral Tablet (Aldactone)Indicatio ns:Hypertension goal BP (blood pressure) < 150/90,Localized edema TAKE ONE TABLET BY MOUTH ON MONDAY, MONDAY, AND MONDAY. TAKE ONE-HALF TABLET ON ALL OTHER DAYS OF THE WEEK 64 Tablet 3 12/27/2021 3 Active Torsemide 10 MG Oral Tablet (Demadex)Indications [...] GOLD 2017 classification ([facility]) Inhale 1 Puff by mouth in the morning. 30 Each 3 12/01/2022 Active Amoxicillin-Pot Clavulanate 875-125 MG Oral Tablet (Augmentin)Indicatio ns:Pneumonia of right lower lobe due to infectious organism Take 1 Tablet by mouth 2 times a day with morning and evening meals for 10 days. 20 Tablet 0 12/01/2022 3 Active predniSONE 10 MG Oral Tablet (Deltasone)Indicatio ns:Pneumonia of right lower lobe due to infectious organism 4 tabs for 2 days, 3 tabs for 2 days, 2 tabs for 2 days 1 tab for 2 days with food 30 Tablet 0 12/01/2022 Active documented as of this encounter (statuses as of 12/09/2022) Active Problems Problem Noted Date Immunization not [...] nodule 08/14/2019 Coronary artery disease invo lving viejas coronary artery of viejas heart without angina pectoris 08/30/2018 Diabetes mellitus [...] as of this encounter (statuses as of 12/09/2022) Resolved Problems Problem Noted Date Resolved Date [...] as of this encounter (statuses as of 12/09/2022) Immunizations Name Administration Dates Next Due HEP [...] Telephone Encounter - Cha Mcclendon RN - 12/09/2022 11:52 AM EDT Pt called back she is feeling better, pt sched a ER follow up on 12/12. Susan notified * Telephone Encounter - Susan Solorzano PA-C - 12/08/2022 3:53 PM EDT Noted * Telephone Encounter - Cha Mcclendon RN - 12/08/2022 1:44 PM EDT Pt called back , she did call her ambulance company and they will not take her to [facility], but they called [facility] and they will transport her, she also called her son and he will meet her there after getting off work. * Telephone Encounter - Cha Mcclendon RN - 12/08/2022 1:18 PM EDT Pt called back today, states she is not feeling much better this week. Pt was seen 12/01/22. Pt state she took the prednisone Mon and Monday and at midnight didn't feel well. Pt states bp at Midnight Monday was 190/125, heart was racing, pt then sat down did some slow breathing and it did finally come down. Pt was unsure if it was related to the prednisone so she held the prednisone on Monday and took the prednisone Monday , Mon and today with no problems. Pt has been taking her antibiotics faithfully. Pt states she get sob when walking to the kitchen. Denies any fever, pt does have a productive cough that takes her "breath" away, and mucous is extremely thick. Pt states she feels better one day and then terrible the next. Pt's cough did sound terrible on the phone, and pt does not sound like she is feeling well. Pt states her oxygen levels are staying in the 90's. I spoke to Susan and she did recommend pt go to the ER. Pt states she is not going to [facility] and her ambulance service will not take her to [facility]. Pt's [facility] and pt is not sure she can find someone to take her to [facility]. Pt counseled to make some calls to see if she can find a ride, if unable to pt to call me back by 2pm for other advice. Reason for Call: Advice Contact: Telephone Call Contact Type: Care Coordination Outcome: see above Face to face time spent with Patient (minutes): 0 Total Time including non face to face (minutes): 20 documented in this encounter Plan of Treatment Upcoming Encounters Date Type Specialty Care Team Description 12/12/2022 Office Visit Family Medicine Susan Solorzano PA-C [address] [place] [address] [place] [address] 12/19/2022 Office Visit Ophthalmology Orlando Ferrer, [address] [facility] [place] [address] 12/28/2022 Imaging Radiology , Excess Time Radiology [address] [facility] [place] [id number] 12/28/2022 Imaging Radiology 01/25/2023 Office Visit Cardiology Laquita Leija CRNP [address] [place] [address] 02/03/2023 Office Visit Gastroenterology Jelly Mills CRNP [address] [place] [address] 02/22/2023 Office Visit Sleep Disorders Aminata Quiroz CRNP [address] [place] [address] 05/02/2023 Office Visit Family Medicine Sandra Rasheed MD [address] [place] [address] [place] [address] 07/31/2023 Nurse Only Ancillary Hank, Nurse Annual Wellness [address] [place] [address] [place] [address] Health Maintenance Due Date Last Done Comments COVID-19 Vaccine (#1) 04/04/1946 Zoster Vaccines (1 of 2) 1996 *ADVANCE DIRECTIVE NOT ON FILE 09/01/2018 DISCUSS TOBACCO CESSATION (REFER TO SMARTSET #3291) 12/02/2021 12/02/2020 Influenza Vaccine (FLU shot) (#1) 2022 12/03/2013 Albumin/Creatinine Ratio 04/26/2023 023, 08/10/2020, 12/06/2019, Additional history exists CKD PHOS USE SMARTSET 56975 04/26/2023/0 09/2022, 04/21/2021, 12/06/2019, Additional history exists Diabetic Foot Exam 04/26/2023 04/26/2022, 0 07/22/2021, 07/21/2020, Additional history exists GFR 04/29/2023 10/27/2022, 0209/2022, 12/20/2021, Additional history exists HbA1c 04/29/2023 10/27/2022, 09/2022, 04/21/2021, Additional history exists DXA Scan 07/24/2023 07/23/2020, 07/20, 03/25/2013 Depression Screening 07/27/2023 07/26/2022 DIABETES-EYE EXAM 08/11/2023 08/10/2022, , 03/22/2021, Additional history exists CKD HGB USE SMARTSET 01095 10/28/202310/27, 10/27/2022, 04/26/2022, Additional history exists O2 [...] this encounter Medical Devices Implanted Type Area Gas Line Installer Device Identifier Shelf Expiration Date Model / Serial / Lot Gynecare Tvt Device Implanted:Qty: 1 on 06/18/2013 at OR [facility] N/A: Bladder 02/17/2016 [id number] / / [id number] documented as of this encounter Care Teams Morning Caregiver Relationship Specialty Start Date End Date Sandra Rasheed MD [address] [place] [address] [place] [address] PCP - General Family Medicine 06/05/15 documented as of this encounter
--- OUTSIDE RECORDS SUMMARY | 2023-06-01 07:20 | External Medical Summary | Summary of Care ---
Author Name Unknown Organization [facility] Address [address] [place] [address] Phone [phone] Care Team Providers Care Procurement Cost Coordinator Name Role Phone Sandra Rasheed MD Primary Care Provide r Reason for Visit * Reason Onset Date Comments Advice 12/08/2022 Encounter Details Date Type Department Care Team Description 12/08/[address] [address] Sandra Rasheed MD [address] [place] [address] [place] [id number] Advice Allergies Active Allergy Reactions Severity Noted Date Comments Influenza Vaccines 01/06/2015 Had flu symptoms x 1 month after injection Iodinated Contrast Media High 09/01/2016 Hives 48 hours post cardiac cath. No respiratory symptoms Sulfa Antibiotics Unknown 02/22/2013 documented as of this encounter (statuses as of 12/08/2022) Medications Medication Sig Dispensed Refills Start Date End Date Status ASPIRIN 81 MG PO TABS Take by mouth at bedtime. 0 Active Cholecalciferol 1000 UNITS Capsule Take 1 Capsule by mouth at bedtime. 30 Cap 3 09/09/2016 Active meclizine (ANTIVERT) 25 MG TabletIndications:Gi daren script for 8 tablets to use x 5 days at [facility] 06-14-18 Take 1 Tab by mouth 3 times a day as needed for Dizziness. Indications: Given script for 8 tablets to use x 5 days at [facility] 06-14-18 90 Tab 0 10/31/2018 Active CPAP every night at bedtime. 0 Active Olopatadine HCl 0.2 % Ophthalmic Solution (Pataday) Instill 1 Drop into both eyes daily. 5 mL 12 08/06/2020 Active OneTouch Delica Plus [id number] :Type 2 diabetes mellitus with hemoglobin A1c [...] as of this encounter (statuses as of 12/08/2022) Active Problems Problem Noted Date Immunization not [...] nodule 08/14/2019 Coronary artery disease invo lving [place] coronary artery of [place] heart without angina pectoris 08/30/2018 Diabetes mellitus [...] as of this encounter (statuses as of 12/08/2022) Resolved Problems Problem Noted Date Resolved Date [...] as of this encounter (statuses as of 12/08/2022) Immunizations Name Administration Dates Next Due HEP [...] encounter Miscellaneous Notes * Telephone Encounter - Susan Solorzano PA-C - 12/08/2022 3:53 PM EDT Noted * Telephone Encounter - Cha Mcclendon RN - 12/08/2022 1:44 PM EDT Pt called back , she did call her ambulance company and they will not take her to [facility], but they called [facility] and they will transport her, [...] Pt states she is not going to [place] [facility] [place] [facility] and her ambulance service will not take her to [facility]. Pt's son does not get off work until 7pm tonight and pt is not sure she can find someone to take her to [facility]. Pt counseled to make some calls to [...] Office Visit Ophthalmology Orlando Ferrer, DO [address] [place] [address] 12/28/2022 Imaging Radiology Gw, Excess Time Radiology [address] [place] [address] 12/28/2022 Imaging Radiology 01/25/2023 Office Visit Cardiology Laquita Leija CRNP [address] [place] [address] 02/03/2023 Office Visit Gastroenterology Jelly Mills CRNP [address] [place] [address] 02/22/2023 Office Visit Sleep Disorders Aminata Quiroz CRNP [address] [place] [address] 05/02/2023 Office Visit Family Medicine Sandra Rasheed MD [address] [place] [address] [place] [address] 07/31/2023 Nurse Only Ancillary Hank, Nurse Annual Wellness [address] [place] [address] [place] [address] Health Maintenance Due Date Last Done Comments COVID-19 Vaccine (#1) 04/04/1946 Zoster Vaccines (1 of 2) 1996 *ADVANCE DIRECTIVE NOT ON FILE 09/01/2018 DISCUSS TOBACCO CESSATION (REFER TO SMARTSET #3291) 12/02/2021 12/02/2020 Influenza Vaccine (FLU shot) (#1) 2022 12/03/2013 Albumin/Creatinine Ratio 04/26/2023 023, 08/10/2020, 12/06/2019, Additional history exists CKD PHOS USE SMARTSET 79657 04/26/20230 09/2022, 04/21/2021, 12/06/2019, Additional history exists Diabetic Foot Exam 04/26/2023 04/26/2022, 0 07/22/2021, 07/21/2020, Additional history exists GFR 04/29/2023 10/27/2022, 02/0 09/2022, 12/20/2021, Additional history exists HbA1c 04/29/2023 10/27/2022, 02/0 09/2022, 04/21/2021, Additional history exists DXA Scan 07/24/2023 07/23/2020, 07/20, 03/25/2013 Depression Screening 07/27/2023 07/26/2022 DIABETES-EYE EXAM 08/11/2023 08/10/2022, , 03/22/2021, Additional history exists CKD HGB USE SMARTSET 33290 10/28/202310/27, 10/27/2022, 04/26/2022, Additional history exists O2 [...] this encounter Medical Devices Implanted Type Area Medical Staff Credentialing Coordinator Device Identifier Shelf Expiration Date Model / Serial / Lot Gynecare Tvt Device Implanted:Qty: 1 on 06/18/2013 at OR [facility] N/A: Bladder 02/17/2016 [id number] / / [id number] documented as of this encounter Care Teams Procurement Cost Coordinator Relationship Specialty Start Date End Date Sandra Rasheed MD [address] [place] [address] [place] [address] PCP - General Family Medicine 06/05/15 documented as of this encounter
--- OUTSIDE RECORDS SUMMARY | 2023-06-01 07:20 | External Medical Summary | Summary of Care ---
Author Name Unknown Organization [facility] Address [address] [place] [address] Phone [phone] Care Team Providers Care Chief Engineer Production Name Role Phone Sandra Rasheed MD Primary Care Provide r Reason for Visit * Reason Onset Date Comments Appointment 12/12/2022 Sleep Medicine Encounter Details Date Type Department Care Team Description 12/12/2022 Telephone Family Medicine [address] [address] Susy Ochoa PA-C [address] [place] [address] [place] [phone] Appointment (Sleep Medicine ) Allergies Active Allergy [...] tablets to use x 5 days at [facility] 06-14-18 Take 1 Tab by mouth 3 times a day as needed for Dizziness. Indications: Given script for 8 tablets to use x 5 days at [facility] 06-14-18 90 Tab 0 10/31/2018 Active CPAP every night at bedtime. 0 Active Olopatadine HCl 0.2 % Ophthalmic Solution (Pataday) Instill 1 Drop into both eyes daily. 5 mL 12 08/06/2020 Active OneTouch Delica Plus [id number] :Type 2 diabetes mellitus with hemoglobin A1c [...] 60 Blister Dosing Unit 2 12/12/2022 Active documented as of this [...] 08/14/2019 Coronary artery disease invo lving [place] coronary artery of [place] heart without angina pectoris 08/30/2018 Diabetes [...] Gw, Excess Time Radiology [address] [place] [id number] 12/28/2022 Imaging Radiology 01/25/2023 Office Visit Cardiology Laquita Leija CRNP [address] [place] [address] 02/03/2023 Office Visit Gastroenterology Jelly Mills CRNP [address] [place] [address] 02/22/2023 Office Visit Sleep Disorders Aminata Quiroz CRNP [address] [address] 05/02/2023 Office Visit Family Medicine Sandra Rasheed MD [address] [place] [address] [place] [address] 07/31/2023 Nurse Only Ancillary [place], Nurse Annual Wellness [address] [place] [address] [place] [address] Health Maintenance Due Date Last Done Comments COVID-19 Vaccine (#1) 04/04/1946 Zoster Vaccines (1 of 2) 1996 *ADVANCE DIRECTIVE NOT ON FILE 09/01/2018 DISCUSS TOBACCO CESSATION (REFER TO SMARTSET #3291) 12/02/2021 12/02/2020 Influenza Vaccine (FLU shot) (#1) 2022 12/03/2013 Albumin/Creatinine Ratio 04/26/2023 023, 08/10/2020, 12/06/2019, Additional history exists CKD PHOS USE SMARTSET 31252 04/26/202309/2022, 04/21/2021, 12/06/2019, Additional history exists Diabetic Foot Exam 04/26/2023 04/26/2022, 0 07/22/2021, 07/21/2020, Additional history exists GFR 04/29/2023 10/27/2022, 02/0 09/2022, 12/20/2021, Additional history exists HbA1c 04/29/2023 10/27/2022, 02/0 09/2022, 04/21/2021, Additional history exists DXA Scan 07/24/2023 07/23/2020, 07/20, 03/25/2013 Depression Screening 07/27/2023 07/26/2022 DIABETES-EYE EXAM 08/11/2023 08/10/2022, , 03/22/2021, Additional history exists CKD HGB USE SMARTSET 54896 10/28/202310/27, 10/27/2022, 04/26/2022, Additional history exists O2 ASSESSMENT COMPLETED IN PAST YEAR FOR COPD 12/02/2023 12/12/2022 COLONOSCOPY-EVERY 3 YRS AGES 18-100 07/13/2025 [...] this encounter Medical Devices Implanted Type Area Expense Analyst Device Identifier Shelf Expiration Date Model / Serial / Lot Gynecare Tvt Device Implanted:Qty: 1 on 06/18/2013 at OR [facility] N/A: Bladder 02/17/2016 [id number] / / [id number] documented as of this encounter Care Teams Chief Engineer Production Relationship Specialty Start Date End Date Sandra Rasheed MD [address] [place] [address] [place] [address] PCP - General Family Medicine 06/05/15 documented as of this encounter
--- NOTE | 2023-06-01 07:25 | Ultrasound Report ---
US soft tissue ext ltd HISTORY: 77 years-old Female RUQ/flank bulge acute pansinusitis and right upper abdominal wall COMPARISON: CT chest 02/12/2020 TECHNIQUE: Multiple real-time sonographic images of the right upper abdominal wall were obtained asse ssing grayscale appearance FINDINGS: No mass, lesion, collection, hernia or other abnormality identified. IMPRESSION: No sonographic abnormality identified. ACT 112: Negative or not required by law. The above report was generated using voice recognition software. It may contain grammatical, syntax o r spelling errors. Electronically signed by: Jeff Pacheco M.D. 06/01/2023 7:24 AM
[2023-06-01] MEDS ORDERED: PHARMACY GLYCEMIC MGMT CONSULT PRN (08:26)
[2023-06-01] MEDS: ASPIRIN 81 MG ECTAB PO SCH (08:31)
[2023-06-01] MEDS: LOSARTAN POTASSIUM 50 MG TAB PO SCH (08:32)
[2023-06-01] MEDS: PANTOprazole 40 MG TAB PO SCH (08:33)
[2023-06-01] MEDS: UMECLIDINIUM/VILANTEROL 62.5/25MCG 7 PUFFS/INHALER INH SCH (08:34)
[2023-06-01] MEDS: MAGNESIUM SULFATE / D5W 1 GM/100 ML BAG IV SCH (08:42)
[2023-06-01] MEDS: cefTRIAXone SODIUM 1,000 MG in DEXTROSE 5 % MINI-B 50 ML IV SCH (08:52)
[2023-06-01] MEDS: LANTUS PER UNIT CHARGE SC ONE (08:57)
[2023-06-01] MEDS: DOXYCYCLINE HYCLATE 100 MG CAP PO SCH (09:01)
--- NOTE | 2023-06-01 09:20 | Pharmacy Report ---
Pharmacy Glycemic Short Note 2 - Date of Service June 01, 2023 - Glycemic Short BSG Results (Last 24 hours): 05/31/23 05/31/23 05/31/23 11:44 16:18 20:44 Glucose 167 H POC Glucose 248 H 342 H* 05/31/23 05/31/23 06/01/23 20:46 23:50 03:59 Glucose 304 H* POC Glucose 365 H* 242 H 06/01/23 07:53 Glucose POC Glucose 297 H OUTPATIENT ANTIDIABETIC REGIMEN: * Glipizide 5 mg PO daily HbA1c ordered for 06/02/23 ASSESSMENT: * 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 admitted for COPD exacerbation likely secondary to pneumonia * Patient started on antibiotic regimen and IV steroids (methylprednisolone 40 mg IV q8h) * Pharmacy consulted for glycemic management this morning (06/01/23) due to hyperglycemia (likely related to IV steroids) * Will be aggressive with initial dosing and adjust as necessary * Lunch BSG of 343 mg/dL - will give IV insulin bolus and further tighten carb ratio PLAN FOR INPATIENT GLYCEMIC CONTROL: * Hold outpatient oral diabetes medications * Basal insulin * Lantus 30 units SQ x 1 (~0.4 unit/kg) * Bolus insulin * NovoLog per scale ACHS or Q6hrs while NPO * Goal Range: Low 110 mg/dL - High 140 mg/dL * Correction Factor: 20 mg/dL/unit * Nutritional / Prandial insulin per carb ratio of 1 unit per 7 grams CHO consumed * checks with same parameters
[2023-06-01] MEDS ORDERED: Nursing to Pharmacy Communication SCH (09:30)
[2023-06-01] MEDS: ATORVASTATIN 40 MG TAB PO SCH ×2 (09:33→21:29)
[2023-06-01] MEDS: INSULIN HUMAN REGULAR PER UNIT 8 UNITS in SYRINGE 7.92 ML IV ONE (12:41)
--- NOTE | 2023-06-01 15:10 | Hospitalist Progress Note ---
Date of Service June 01, 2023 Assessment & Plan (1) Acute hypoxic respiratory failure: (2) COPD exacerbation: (3) Pneumonia: (4) Enterovirus infection: Plan: Patient presenting by referral PCPs office for evaluation of shortness of breath and hypoxia. While at PCPs office, patient was found to be 85% on room air. Acute on chronic respiratory failure with hypoxia Acute COPD exacerbation Enterovirus infection Viral pneumonia due to above --CXR:Hazy right infrahilar opacity. This favors pneumonia. Post radiographs to ensure resolution are recommended. Procalcitonin 0.04 BioFire positive for rhinovirus Empirically on Rocephin, doxycycline Continue Solu-Medrol, titrate as able Continue nebs, home inhalers Titrate oxygen to keep saturations 88 to 92% Will need 2 step prior to discharge Thrombocytopenia No acute bleeding issues currently Monitor Hyponatremia In setting of hyperglycemia Home diuretics likely contributing to hyponatremia Corrected sodium near baseline Monitor Hypomagnesemia Replete and monitor (5) Back pain: Plan: Patient reports a right-sided back/flank pain for over the past month Likely musculoskeletal in origin Had CT imaging at [facility] Currently denies any back pain Trial Lidoderm patch Will repeat imaging if needed (6) Chronic diastolic CHF (congestive heart failure): Plan: Clinically dehydrated on presentation Resume home diuretics as able (7) Diabetes mellitus, type 2: Plan: Hgb A1c 6.8 04/2023 Hold oral agents Continue insulin per protocol Monitor BGs (8) Hypertension: Plan: Continue losartan and metoprolol (9) CAD (coronary artery disease): Plan: H/O nonobstructive CAD Continue ASA, statin, Metoprolol DVT Px SQ Lovenox Admission and Anticipated Discharge Date Admission Date: May 31, 2023 Subjective Patient is seen and examined at bedside States having cough with yellowish expectoration Also reports dyspnea and some chest discomfort with cough Denies any nausea, vomiting, abdominal pain, dizziness No other complaints Saturating well on 2 L supplemental oxygen Review of Systems Review of Systems: All systems reviewed & are unremarkable except as noted in Subjective Physical Exam Physical Exam: Physical Exam: Vitals signs as noted above General Appearance:Moderately built and nourished, no apparent distress, Elderly, chronically ill appearing Head: normocephalic, Atraumatic Eyes: normal inspection, EOMI Neck: supple, Trachea midline Respiratory/Chest: Decreased breath sounds, minimal wheezes, No accessory muscle use Cardiovascular: S1, S2, No murmur Abdomen/GI:Soft, Non tender, Bowel sounds present Extremities/Musculoskeletal:normal inspection, 1+ edema Neurologic/Psych:AAOX3, grossly no focal neurological deficits Skin: normal color, warm Results & Data Results & Data Vital Signs (Past 12 Hours) Vital Signs Temp Pulse Pulse Resp BP Pulse Ox O2 Del Method 06/01/23 13:58 99 H 18 98 Nasal Cannula 06/01/23 11:09 36.6 C 95 H 19 138/67 95 Nasal Cannula 06/01/23 10:55 97 H 20 94 Nasal Cannula 06/01/23 08:17 Nasal Cannula 06/01/23 07:25 100 H 18 96 Nasal Cannula 06/01/23 07:14 36.4 C L 104 H 20 161/65 H 91 Nasal Cannula 06/01/23 06:45 94 H 06/01/23 04:39 36.4 C L 94 H 18 149/64 H 98 Nasal Cannula O2 Flow Rate 06/01/23 13:58 2 06/01/23 11:09 2 06/01/23 10:55 2 06/01/23 08:17 2 06/01/23 07:25 2 06/01/23 07:14 1.5 06/01/23 06:45 06/01/23 04:39 1.5 Laboratory Results Short CBC 06/01/23 Range/Units 03:59 WBC 5.43 (4.8-10.8) K/ul Hgb 12.6 (12.0-16.0) g/dl Hct 37.8 (37.0-47.0) % Plt Count 100 L (130-400) K/uL BMP 06/01/23 03:59 Sodium 130 L Potassium 4.3 Chloride 99 Carbon Dioxide 20 L BUN 18 Creatinine 1.20 Glucose 304 H* Calcium 9.0
--- OUTSIDE RECORDS SUMMARY | 2023-06-01 16:21 | External Medical Summary | Summary of Care ---
Author Name Unknown Organization [facility] Address [address] [place] [address] Phone [phone] Care Team Providers Care Policewoman Name Role Phone Sandra Rasheed MD Primary Care Provide r Reason for Visit * Reason Comments Rheum Follow Up Recheck, "pain in up per abd" * Evaluate & Treat - Unlimited Visits (Within 10 days (routine)) - Authorized Specialty Diagnoses / Procedures Referred By Monse orellana Referred To Contact Gastroenterology Diagnoses Change in stool Susy Ochoa PA-C [address] [place] [address] [place] [address] Referral ID Status Reason Start Date Expiration Date Visits Requested Visits Authorized [id number] Authorized Specialty Services Required 10/27/[phone] Encounter Details Date Type Department Care Team (Late st Contact Info) Description 02/03/2023 12:00 PM EST Office Visit Gastroenterology [address] [place] [address] Jelly Mills CRNP [address] [place] [address] Fatty liver* Allergies Active Allergy Reactions Criticality [...] 5 days at [facility] 06-14-18 Take 1 Tab by mouth [...] :COPD, group D, by GOLD 2017 classification (SELF [...] 3 12/26/19 24 Active OneTouch Delica Plus [id number] s:Type 2 diabetes mellitus with hemoglobin A1c [...] nodule 08/14/2019 Coronary artery disease invo lving [place] coronary artery of [place] heart without angina pectoris 08/30/2018 Diabetes [...] leg edema. 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 Sleeping pattern off. Denies SOB, CP, [...] Diagnosis Date COPD (chronic obstructive pulmonary disease) ([facility]) COVID-19 10/25/2021 CRVO (central retinal vein occlusion) OS Dyslipidemia, goal LDL below 130 Hypercholesteremia Hypertension Hypertension goal BP (blood pressure) < 140/90 Hypertensive retinopathy OU Impaired fasting glucose 02/22/2013 Lung nodule PAD (peripheral artery disease) ([facility]) 07/22/2014 Pneumonia 06/08/2015 [facility] Postmenopausal atrophic [...] performed by Lauren Kenny MD at ENDOSCOPY [facility] COLONOSCOPY, DIAGNOSTIC (RECTUM) 09/16/2019 diverticulosis sigmoid and descending colon/biopsies show serrated adenomatous polyps/recall 6 months/COLONOSCOPY FLEXIBLE PROXIMAL DIAGNOSTIC performed by Lauren Kenny MD at ENDOSCOPY [facility] COLONOSCOPY, DIAGNOSTIC (RECTUM) N/A 02/27/2020 adenomatous polyp, diverticulosis, repeat 3 yrs / COLONOSCOPY FLEXIBLE PROXIMAL DIAGNOSTIC performed by Lauren Kenny MD at ENDOSCOPY [facility] COLONOSCOPY, DIAGNOSTIC (RECTUM) N/A 07/13/2022 [facility], colonoscopy, diverticulosis in sigmoid / no specimens collected / 5 year recall / CYSTOSCOPY 06/18/2013 CYSTOURETHROSCOPY performed by Charlee Handley MD at OR [facility] EGD, FLEXIBLE, DIAGNOSTIC 02/20/2017 mild stomach irritation, gastric ulcers, hiatal hernia, repeat 3 mo/ESOPHAGOGASTRODUODENOSCOPY (EGD), FLEXIBLE, TRANSORAL, DIAGNOSTIC performed by Maye Zavala MD at ENDOSCOPY [facility] EGD, FLEXIBLE, DIAGNOSTIC 05/29/2017 hiatal hernia/ESOPHAGOGASTRODUODENOSCOPY (EGD), FLEXIBLE, TRANSORAL, DIAGNOSTIC performed by MD Sepideh at ENDOSCOPY [facility] EGD, FLEXIBLE, DIAGNOSTIC N/A 07/13/2022 [facility], EGD normal scope / [...] CONSENT, DR. HODGES REMOVAL OF APPENDIX 1960 [facility] [place] - Dr JAMIA Wang REMOVAL OF OVARY/OVIDUCT(S) bilateral - PAH REMOVAL OF TONSILS, UNDER AGE [age] yo [place] - Dr. JAMIA Wang REMOVE GALLBLADDER at 61yrs old lap REPAIR ARM TENDON/MUSCLE 1998 right side REPAIR BLADDER DEFECT 06/18/2013 VAGINAL SLING PROCEDURE FOR STRESS INCONTINENCE performed by Charlee Handley MD at OR [facility] REPAIR INITIAL INCISIONAL OR VENTRAL HERNIA; [...] [facility] 06-14-18 90 Tab 0 CPAP every [...] the morning. 90Capsule 3 OneTouch Delica Plus [id number] Use to test blood sugar up to [...] CLINIC: 6 months; and sooner Lindsey Ariza [facility] Gastroenterology, [facility] documented in this encounter Nursing Notes * Lynn Frye LPN - 02/03/2023 12:07 PM EST Chief Complaint Patient presents with Rheum Follow Up Recheck, "pain in upper abd" documented in this encounter Plan of Treatment Upcoming Encounters Date Type Department Care Team (Late st Contact Info) Description 02/22/2023 3:30 PM EST Office Visit Sleep Disorders [facility] [address] [address] Aminata Quiroz CRNP [address] [place] [address] 05/02/2023 1:40 PM EST Office Visit Family Medicine [address] [place] [address] Sandra Rasheed MD [address] [place] [address] [place] [address] 05/10/2023 11:30 AM EST Office Visit Ophthalmology, [facility] [address] [place] [address] Mulugeta Hodges DO [address] [place] [address] 07/27/2023 3:00 PM EDT Office Visit Cardiology, [facility] [address] [place] [address] Laquita Leija CRNP [address] [place] [address] 07/31/2023 1:30 PM EDT Nurse Only Ancillary [address] [place] [address] [place], Nurse Annual [address] [place] [address] Pending Results Name Type Priority Associated Diagnoses [...] Additional history exists CKD PHOS USE SMARTSET 26439 04/26/20230 09/2022, 04/21/2021, 12/06/2019, Additional history exists Diabetic Foot Exam 04/26/2023 04/26/2022, 0 07/22/2021, 07/21/2020, Additional history exists GFR 04/29/2023 10/27/2022, 02/0 09/2022, 12/20/2021, Additional history exists HbA1c 04/29/2023 10/27/2022, 02/0 09/2022, 04/21/2021, Additional history exists DXA Scan 07/24/2023 07/23/2020, 07/20, 03/25/2013 Depression Screening 07/27/2023 07/26/2022 Diabetic Eye Exam 08/11/2023 08/10/2022, , 06/23/2021, Additional history exists CKD HGB USE SMARTSET 12390 10/28/202310/27, 10/27/2022, 04/26/2022, Additional history exists O2 [...] this encounter Medical Devices Implanted Type Area Approver Device Identifier Shelf Expiration Date Model / Serial / Lot Gynecare Tvt Device Implanted:Qty: 1 on 06/18/2013 at OR [facility] N/A: Bladder 02/17/2016 [id number] / / [id number] documented as of this encounter Visit Diagnoses Diagnosis Fatty liver- Primary Other chronic nonalcoholic liver disease documented in this encounter Care Teams Policewoman Relationship Specialty Start Date End Date Sandra Rasheed MD [address] [place] [address] [place] [address] PCP - General Family Medicine 06/05/15 documented as of this encounter
--- OUTSIDE RECORDS SUMMARY | 2023-06-01 16:21 | External Medical Summary | Summary of Care ---
Author Name Unknown Organization [facility] Address [address] [place] [address] Phone [phone] Care Team Providers Care Program Project Manager Name Role Phone Sandra Rasheed MD Primary Care Provide r Reason for Visit * Reason Comments Rheum Follow Up Recheck, "pain in up per abd" * Evaluate & Treat - Unlimited Visits (Within 10 days (routine)) - Authorized Specialty Diagnoses / Procedures Referred By Monse orellana Referred To Contact Gastroenterology Diagnoses Change in stool Susy Ochoa PA-C [address] [place] [address] [place] [id number] Referral ID Status Reason Start Date Expiration Date Visits Requested Visits Authorized [id number] Authorized Specialty Services Required 10/27/[phone] Encounter Details Date Type Department Care Team (Late st Contact Info) Description 02/03/2023 12:00 PM EST Office Visit Gastroenterology [address] [place] [address] Jelly Mills CRNP [address] [place] [address] Fatty liver* Allergies Active Allergy Reactions Criticality [...] to use x 5 days at [facility] 06-14-18 Take 1 Tab by mouth 3 times a day as needed for Dizziness. Indications: Given script for 8 tablets to use x 5 days at [facility] 06-14-18 90 Tab 0 9 Active [...] classification ([facility]) Inhale 1 Puff by mouth in the [...] 3 12/26/19 24 Active OneTouch Delica Plus [id number] s:Type 2 diabetes mellitus with hemoglobin A1c [...] nodule 08/14/2019 Coronary artery disease invo lving [place] coronary artery of [place] heart without angina pectoris 08/30/2018 Diabetes [...] EST DATE OF SERVICE: 02/03/23 REFERRING PHYSICIAN: Avlerto Sykes DO CC: F/U Hepatic steatosis HPI: [...] leg edema. 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 Denies SOB, CP, [...] Date COPD (chronic obstructive pulmonary disease) ([facility]) COVID-19 10/25/2021 CRVO (central retinal vein occlusion) OS Dyslipidemia, goal LDL below 130 Hypercholesteremia Hypertension Hypertension goal BP (blood pressure) < 140/90 Hypertensive retinopathy OU Impaired fasting glucose 02/22/2013 Lung nodule PAD (peripheral artery disease) ([facility]) 07/22/2014 Pneumonia 06/08/2015 [facility] Postmenopausal atrophic [...] performed by Lauren Kenny MD at [facility] COLONOSCOPY, DIAGNOSTIC (RECTUM) 09/16/2019 diverticulosis sigmoid and descending colon/biopsies show serrated adenomatous polyps/recall 6 months/COLONOSCOPY FLEXIBLE PROXIMAL DIAGNOSTIC performed by Lauren Kenny MD at [facility] COLONOSCOPY, DIAGNOSTIC (RECTUM) N/A 02/27/2020 adenomatous polyp, diverticulosis, repeat 3 yrs / COLONOSCOPY FLEXIBLE PROXIMAL DIAGNOSTIC performed by Lauren Kenny MD at [facility] COLONOSCOPY, DIAGNOSTIC (RECTUM) N/A 07/13/2022 [facility], colonoscopy, diverticulosis in sigmoid / no specimens collected / 5 year recall / CYSTOSCOPY 06/18/2013 CYSTOURETHROSCOPY performed by Charlee Handley MD at [facility] EGD, FLEXIBLE, DIAGNOSTIC 02/20/2017 mild stomach irritation, gastric ulcers, hiatal hernia, repeat 3 mo/ESOPHAGOGASTRODUODENOSCOPY (EGD), FLEXIBLE, TRANSORAL, DIAGNOSTIC performed by Maye Zavala MD at [facility] EGD, FLEXIBLE, DIAGNOSTIC 05/29/2017 hiatal hernia/ESOPHAGOGASTRODUODENOSCOPY (EGD), FLEXIBLE, TRANSORAL, DIAGNOSTIC performed by MD Sepideh at [facility] EGD, FLEXIBLE, DIAGNOSTIC N/A 07/13/2022 [facility], EGD normal scope / no specimens collected [...] Left 12/14/2015 [facility] OS # 8 Dr. Arugello INJECTION OF EYE DRUG Left 01/28/2016 [facility] [...] CONSENT, DR. HODGES REMOVAL OF APPENDIX 1960 [facility] [place] - Dr JAMIA Wang REMOVAL OF OVARY/OVIDUCT(S) bilateral - PAH REMOVAL OF TONSILS, UNDER AGE [age] yo [facility] - Dr. JAMIA Wang REMOVE GALLBLADDER at 61yrs old lap REPAIR ARM TENDON/MUSCLE 1998 right side REPAIR BLADDER DEFECT 06/18/2013 VAGINAL SLING PROCEDURE FOR STRESS INCONTINENCE performed by Charlee Handley MD at [facility] REPAIR INITIAL INCISIONAL OR VENTRAL HERNIA; REDUCIBLE [...] to use x 5 days at [facility] 06-14-18 90 Tab 0 CPAP every [...] the morning. 90Capsule 3 OneTouch Delica Plus [id number] Use to test blood sugar up to [...] CLINIC: 6 months; and sooner Lindsey Ariza [facility], [facility] documented in this encounter Nursing Notes * Lynn Frye LPN - 02/03/2023 12:07 PM EST Chief Complaint Patient presents with Rheum Follow Up Recheck, "pain in upper abd" documented in this encounter Plan of Treatment Upcoming Encounters Date Type Department Care Team (Late st Contact Info) Description 02/06/2023 9:15 AM EST Imaging Radiology [address] [place] [address] 02/22/2023 3:30 PM EST Office Visit [facility] [place] [phone] Aminata Quiroz CRNP [address] [place] [address] 05/02/2023 1:40 PM EST Office Visit Family Medicine [address] [place] [phone] Sandra Rasheed MD [address] [place] [address] [place] [address] 05/10/2023 11:30 AM EST Office Visit [facility]hthalmology, [facility] [place] [address] Mulugeta Hogdes DO [address] [place] [address] 07/27/2023 3:00 PM EDT Office Visit Cardiology, [facility] [address] [facility] [place] [address] Laquita Leija CRNP [address] [place] [address] 07/31/2023 1:30 PM EDT Nurse Only Ancillary [address] [place] [address] [place], Nurse Annual [address] [place] [address] Pending Results Name Type Priority Associated Diagnoses [...] Additional history exists CKD PHOS USE SMARTSET 80986 04/26/2023/0 09/2022, 04/21/2021, 12/06/2019, Additional history exists Diabetic Foot Exam 04/26/2023 04/26/2022, 0 07/22/2021, 07/21/2020, Additional history exists GFR 04/29/2023 10/27/2022, 02/0 09/2022, 12/20/2021, Additional history exists HbA1c 04/29/2023 10/27/2022, 02/0 09/2022, 04/21/2021, Additional history exists DXA Scan 07/24/2023 07/23/2020, 07/20, 03/25/2013 Depression Screening 07/27/2023 07/26/2022 Diabetic Eye Exam 08/11/2023 08/10/2022, , 06/23/2021, Additional history exists CKD HGB USE SMARTSET 85076 10/28/202310/27, 10/27/2022, 04/26/2022, Additional history exists O2 [...] encounter Medical Devices Implanted Type Area Car Repairer Helper Device Identifier Shelf Expiration Date Model / Serial / Lot Gynecare Tvt Device Implanted:Qty: 1 on 06/18/2013 at [facility] N/A: Bladder 02/17/2016 [id number] / / [id number] documented as of this encounter Visit Diagnoses Diagnosis Fatty liver- Primary Other chronic nonalcoholic liver disease documented in this encounter Care Teams Program Project Manager Relationship Specialty Start Date End Date Sandra Rasheed MD [address] [place] [address] [place] [phone] PCP - General Family Medicine 06/05/15 documented as of this encounter
--- OUTSIDE RECORDS SUMMARY | 2023-06-01 16:21 | External Medical Summary ---
Author Name Unknown Address Unknown Organization K01:[facility] - [address] [place] [address] Laboratory Report Ordering Provider Test Date Status COLTEN RIVERA 02/03/2023 12:34:11 Final Warfarin Therapy
INR: 2 .0-3.0 conventional anticoagulation
INR: 2.5- 3.5 high intensity anticoagulation Observation Date Value Abnormality Reference (Units ) Status PT 02/03/2023 12:34:11 13.2 11.6-15.2 (seconds) Final INR 02/03/2023 12:34:11 1.0 0.8-1.2 Final Performing Location [facility] - [address] [place] [address]
[2023-06-01] MEDS: methylPREDNISolone 40 MG in SYRINGE 0 ML IV SCH (21:42)
[2023-06-01] MEDS: INSULIN ASPART PER UNIT CHARGE SC SCH (23:54)
[2023-06-02 06:37] LABS: Hematocrit (blood only) 35.8 % (37.0-47.0); Hemoglobin 12.8 g/dl (12.0-16.0); Mean Corpuscular Hemoglobin 31.1 pg (25.0-34.0); Mean Corpuscular Hgb Conc 35.8 g/dL (32.0-36.0); Mean Corpuscular Volume 86.9 fL (80.0-100.0); Mean Platelet Volume 10.4 fL (9.4-12.4); Platelet Count 117 K/uL (130-400); RDW Coefficient of Variation 14.1 % (11.5-14.5); RDW Standard Deviation 45.1 fL (36.4-46.3); Red Blood Count 4.12 M/uL (4.20-5.40)
[2023-06-02 07:09] LABS: BUN Creatinine Ratio 22.3 (10-20); Calcium 9.1 mg/dl (8.6-10.3); Creatinine Clr Calc Pharmacy 43.8 ml/min; Est GFR (African American) 55.3 ml/min; Est GFR (Non-African American) 47.7 ml/min; Magnesium 1.9 mg/dl (1.7-2.4); Potassium 4.9 mmol/L (3.5-5.1)
[2023-06-02 07:50] LABS: Estimated Average Glucose 166 mg/dl; Hemoglobin A1C 7.4 % (4.5-5.6)
[2023-06-02] MEDS: LANTUS PER UNIT CHARGE SC SCH (08:57)
--- NOTE | 2023-06-02 09:20 | Pharmacy Report ---
Pharmacy Glycemic Short Note 2 - Date of Service June 02, 2023 - Glycemic Short BSG Results (Last 24 hours): 06/01/23 06/01/23 06/01/23 11:36 11:38 16:42 Glucose POC Glucose 359 H* 343 H* 161 H 06/01/23 06/01/23 06/02/23 20:45 23:48 03:52 Glucose POC Glucose 219 H 251 H 176 H 06/02/23 06/02/23 05:29 07:40 Glucose 168 H POC Glucose 193 H OUTPATIENT ANTIDIABETIC REGIMEN: * Glipizide 5 mg PO daily HbA1c: 7.4% (06/02/23) ASSESSMENT: 06/02/23: * Blood sugars elevated yesterday, ranging 161-343 mg/dL * Received ~100 units of insulin (30 units of which were basal) * Will increase basal and tighten Novolog parameters today * Similar trend today w/ lunch-time BSG > 300 mg/dL * Give additional IV insulin bolus today and further tighten carb ratio 06/01/23: * 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 admitted for COPD exacerbation likely secondary to pneumonia * Patient started on antibiotic regimen and IV steroids (methylprednisolone 40 mg IV q8h) * Pharmacy consulted for glycemic management this morning (06/01/23) due to hyperglycemia (likely related to IV steroids) * Will be aggressive with initial dosing and adjust as necessary * Lunch BSG of 343 mg/dL - will give IV insulin bolus and further tighten carb ratio PLAN FOR INPATIENT GLYCEMIC CONTROL: * Hold outpatient oral diabetes medications * Basal insulin - increase * Lantus 35 units SQ x 1 (~0.4 unit/kg) * Bolus insulin - tighten carb ratio * NovoLog per scale ACHS or Q6hrs while NPO * Goal Range: Low 110 mg/dL - High 140 mg/dL * Correction Factor: 15 mg/dL/unit * Nutritional / Prandial insulin per carb ratio of 1 unit per 4 grams CHO consumed
[2023-06-02] MEDS: TORSEMIDE 10 MG TAB PO SCH ×2 (11:12→16:59)
[2023-06-02] MEDS: INSULIN HUMAN REGULAR PER UNIT 8 UNITS in SYRINGE 7.92 ML IV ONE (12:47)
--- NOTE | 2023-06-02 15:02 | Hospitalist Progress Note ---
Date of Service June 02, 2023 Assessment & Plan (1) Acute hypoxic respiratory failure: (2) COPD exacerbation: (3) Pneumonia: (4) Enterovirus infection: Plan: Patient presenting by referral PCPs office for evaluation of shortness of breath and hypoxia. While at PCPs office, patient was found to be 85% on room air. Acute on chronic respiratory failure with hypoxia Acute COPD exacerbation Enterovirus infection Viral pneumonia due to above Patient was referred from her primary care office due to hypoxia. --CXR:Hazy right infrahilar opacity. This favors pneumonia. Post radiographs to ensure resolution are recommended. Procalcitonin 0.04 BioFire positive for rhinovirus Continue [id number] DuoNebs, antibiotics with Rocephin and doxycycline and steroid. Plan to treat with steroid for 5 days Continue home inhalers Titrate oxygen to keep saturations 88 to 92% Two-step oxygen evaluation was done; requires 1 L of oxygen at rest and 2 L on exertion. Thrombocytopenia No acute bleeding issues currently Monitor Type 2 diabetes mellitus HbA1c of 7.4% Hold home oral hypoglycemic agent Currently on insulin; continue. Hyponatremia Sodium of 129 Will resume her home torsemide. Hypomagnesemia Repleted Tobacco use disorder Discussed about tobacco cessation. On nicotine patch. Will need to follow-up with her primary care doctor regarding further treatment. H/O nonobstructive CAD Continue ASA, statin, Metoprolol Chronic diastolic heart failure Torsemide continued Hypertension Continue on losartan and metoprolol Time spent evaluating patient, direct bedside care, chart review, placing orders, interpretation of diagnostic studies, discussion with consultants, patient, and family members, as well as other required patient management activities is 50 minutes Please note the above document was generated using voice recognition software. It may contain grammatical, syntax or spelling errors. Any formal questions or concerns about the content, text or information contained within the body of this dictation should be directly addressed to the provider for clarification Admission and Anticipated Discharge Date Admission Date: May 31, 2023 Subjective Patient seen and examined at bedside. She reports that she is short of breath on minimal exertion. She also reports multiple coughing episodes Review of Systems Review of Systems: All systems reviewed & are unremarkable except as noted in Subjective Physical Exam Physical Exam: Physical Exam: Vitals signs as noted above General Appearance:Moderately built and nourished, no apparent distress, Elderly, chronically ill appearing Respiratory/Chest: Decreased breath sounds bilaterally. Cardiovascular: S1, S2, No murmur Abdomen/GI:Soft, Non tender, Bowel sounds present Extremities/Musculoskeletal:normal inspection, 1+ edema Neurologic/Psych:AAOX3, grossly no focal neurological deficits Skin: normal color, warm Results & Data Results & Data Vital Signs (Past 12 Hours) Vital Signs Temp Pulse Pulse Resp BP Pulse Ox O2 Del Method 06/02/23 11:00 36.8 C 98 H 18 116/61 97 CPAP 06/02/23 10:53 14 Nasal Cannula 06/02/23 10:08 Nasal Cannula 06/02/23 08:08 77 06/02/23 08:00 36 C L 97 H 20 108/56 L 98 CPAP 06/02/23 07:13 12 CPAP 06/02/23 03:53 36.5 C 92 H 18 119/57 L 96 CPAP O2 Flow Rate 06/02/23 11:00 2 06/02/23 10:53 2 06/02/23 10:08 2 06/02/23 08:08 06/02/23 08:00 2.0 06/02/23 07:13 2 06/02/23 03:53 2.0
[2023-06-02] MEDS: oxyCODONE HCL IR 5 MG TAB (IMMEDIATE RELEASE) PO STA (15:11)
[2023-06-02] MEDS: INSULIN ASPART PER UNIT CHARGE SC SCH (20:49)
--- NOTE | 2023-06-02 21:40 | Electrocardiogram Report ---
Test Reason : Blood Pressure : / mmHG Vent. Rate : 072 BPM Atrial Rate : 072 BPM P-R Int : 136 ms QRS Dur : 074 ms QT Int : 388 ms P-R-T Axes : 067 -03 053 degrees QTc Int : 425 ms Poor data quality, interpretation may be adversely affected Sinus rhythm Nonspecific T wave abnormality Poor R wave progression, consider anterior MS vs. lead placement vs. LVH Abnormal ECG When compared with ECG of 08-DEC-2022 19:33, Borderline criteria for Inferior infarct are no longer Present Confirmed by Dayo Blackburn ([id number]) on 06/02/2023 9:40:08 PM Referred By: Sandra Rasheed Confirmed By:Dayo Blackburn
[2023-06-03] MEDS: INSULIN ASPART PER UNIT CHARGE SC SCH (02:03)
--- NOTE | 2023-06-03 06:29 | Electrocardiogram Report ---
Test Reason : Blood Pressure : / mmHG Vent. Rate : 108 BPM Atrial Rate : 108 BPM P-R Int : 168 ms QRS Dur : 082 ms QT Int : 348 ms P-R-T Axes : 077 000 065 degrees QTc Int : 467 ms Sinus tachycardia Possible Left atrial enlargement When compared with ECG of 31-MAY-2023 11:52, Vent. rate has increased BY 36 BPM Confirmed by Dayo Blackburn ([id number]) on 06/03/2023 6:29:05 AM Referred By: Sandra Rasheed Confirmed By:Dayo Blackburn
[2023-06-03] MEDS: SPIRONOLACTONE 12.5 MG TAB PO SCH (09:24)
[2023-06-03] MEDS: LANTUS PER UNIT CHARGE SC ONE (09:29)
[2023-06-03] MEDS: POLYETHYLENE (MIRALAX) 17 GM PACK PO SCH (11:59)
--- NOTE | 2023-06-03 14:29 | Hospitalist Progress Note ---
Date of Service June 03, 2023 Assessment & Plan (1) Acute hypoxic respiratory failure: (2) COPD exacerbation: (3) Pneumonia: (4) Enterovirus infection: Plan: Patient presenting by referral PCPs office for evaluation of shortness of breath and hypoxia. While at PCPs office, patient was found to be 85% on room air. Acute on chronic respiratory failure with hypoxia Acute COPD exacerbation Enterovirus infection Viral pneumonia due to above Patient was referred from her primary care office due to hypoxia. --CXR:Hazy right infrahilar opacity. Procalcitonin 0.04 BioFire positive for rhinovirus Continue [id number] DuoNebs, antibiotics with Rocephin and doxycycline and steroid. Plan to treat with steroid for 5 days Continue home inhalers Titrate oxygen to keep saturations 88 to 92% Two-step oxygen evaluation was done; requires 1 L of oxygen at rest and 2 L on exertion. Thrombocytopenia No acute bleeding issues currently Monitor Type 2 diabetes mellitus HbA1c of 7.4% Hold home oral hypoglycemic agent Currently on insulin; continue. Hyponatremia Sodium of 129 Will resume her home torsemide. Hypomagnesemia Repleted Tobacco use disorder Discussed about tobacco cessation. On nicotine patch. Will need to follow-up with her primary care doctor regarding further treatment. H/O nonobstructive CAD Continue ASA, statin, Metoprolol Chronic diastolic heart failure Torsemide continued Hypertension Continue on losartan and metoprolol Time spent evaluating patient, direct bedside care, chart review, placing orders, interpretation of diagnostic studies, discussion with consultants, teddy ent, and family members, as well as other required patient management activities is 50 minutes Please note the above document was generated using voice recognition software. It may contain grammatical, syntax or spelling errors. Any formal questions or concerns about the content, text or information contained within the body of this dictation should be directly addressed to the provider for clarification Admission and Anticipated Discharge Date Admission Date: May 31, 2023 Subjective Patient reports that she continues to feel short of breath. She is on 1 L of oxygen by nasal cannula. No significant event overnight Review of Systems Review of Systems: All systems reviewed & are unremarkable except as noted in Subjective Physical Exam Physical Exam: Physical Exam: Vitals signs as noted above General Appearance:Moderately built and nourished, no apparent distress, Elderly, chronically ill appearing Respiratory/Chest: Decreased breath sounds bilaterally. Occasional wheeze Cardiovascular: S1, S2, No murmur Abdomen/GI:Soft, Non tender, Bowel sounds present Extremities/Musculoskeletal:normal inspection, 1+ edema Neurologic/Psych:AAOX3, grossly no focal neurological deficits Skin: normal color, warm Results & Data Results & Data Vital Signs (Past 12 Hours) Vital Signs Temp Pulse Pulse Resp BP Pulse Ox O2 Del Method 06/03/23 11:30 36.8 C 78 18 135/71 97 CPAP 06/03/23 11:13 79 18 96 Room Air 06/03/23 08:00 36.7 C 88 20 144/81 H 96 CPAP 06/03/23 08:00 Nasal Cannula, CPAP 06/03/23 07:38 83 18 95 CPAP 06/03/23 07:01 75 06/03/23 03:39 93 H 18 94 CPAP 06/03/23 03:00 36.6 C 90 22 131/72 98 CPAP O2 Flow Rate 06/03/23 11:30 06/03/23 11:13 06/03/23 08:00 06/03/23 08:00 2 06/03/23 07:38 06/03/23 07:01 06/03/23 03:39 2 06/03/23 03:00
[2023-06-04 05:48] LABS: Basophils # (auto) 0.01 K/uL (0.00-0.20); Basophils % (auto) 0.1 %; Hematocrit (blood only) 38.7 % (37.0-47.0); Hemoglobin 13.3 g/dl (12.0-16.0); Immature Granulocytes # (auto) 0.03 K/uL (0.01-0.20); Immature Granulocytes % (auto) 0.4 %; Lymphocytes % (auto) 13.1 %; Mean Corpuscular Hemoglobin 30.1 pg (25.0-34.0); Mean Corpuscular Hgb Conc 34.4 g/dL (32.0-36.0); Mean Corpuscular Volume 87.6 fL (80.0-100.0); Monocytes # (auto) 0.51 K/uL (0.11-0.59); Monocytes % (auto) 7.4 %; Neutrophils # (auto) 5.41 K/uL (1.40-6.50); Platelet Count 130 K/uL (130-400); RDW Coefficient of Variation 14.3 % (11.5-14.5); RDW Standard Deviation 46.2 fL (36.4-46.3); Red Blood Count 4.42 M/uL (4.20-5.40); White Blood Count 6.86 K/ul (4.8-10.8)
[2023-06-04 06:01] LABS: Albumin Globulin Ratio 1.8 (0.9-2); Albumin Level 3.6 gm/dl (3.4-5.0); BUN Creatinine Ratio 27.3 (10-20); Bilirubin,Total 0.5 mg/dl (0.2-1.0); Calcium 8.8 mg/dl (8.6-10.3); Creatinine Clr Calc Pharmacy 35.7 ml/min; Est GFR (African American) 41.1 ml/min; Est GFR (Non-African American) 35.5 ml/min; Potassium 4.5 mmol/L (3.5-5.1); Total Protein 5.6 gm/dl (6.0-8.3)
[2023-06-04] MEDS ORDERED: LANTUS PER UNIT CHARGE SC SCH (09:00)
[2023-06-04] MEDS: LANTUS PER UNIT CHARGE SC SCH (09:08)
[2023-06-04] MEDS: NovoLIN-N (NPH) PER UNIT CHARGE SQ ONE (09:10)
[2023-06-04] MEDS: predniSONE 20 MG TAB PO SCH (09:11)
--- NOTE | 2023-06-04 11:38 | Hospitalist Progress Note ---
Date of Service June 04, 2023 Assessment & Plan (1) Acute hypoxic respiratory failure: (2) COPD exacerbation: (3) Pneumonia: (4) Enterovirus infection: Plan: Patient presenting by referral PCPs office for evaluation of shortness of breath and hypoxia. While at PCPs office, patient was found to be 85% on room air. Acute on chronic respiratory failure with hypoxia Acute COPD exacerbation Enterovirus infection Viral pneumonia due to above Patient was referred from her primary care office due to hypoxia. --CXR:Hazy right infrahilar opacity. Procalcitonin 0.04 BioFire positive for rhinovirus Continue [id number] DuoNebs, antibiotics with Rocephin and doxycycline and steroid. Plan to treat with steroid for 5 days Started on budesonide and formoterol nebs twice daily Titrate oxygen to keep saturations 88 to 92% Two-step oxygen evaluation was done; requires 1 L of oxygen at rest and 2 L on exertion; was done on June 01; likely will need to repeat Thrombocytopenia No acute bleeding issues currently Monitor Type 2 diabetes mellitus HbA1c of 7.4% Hold home oral hypoglycemic agent Currently on insulin; continue. Hyponatremia Sodium of 129; improved to 131 Continue to monitor daily Hypomagnesemia Repleted Tobacco use disorder Discussed about tobacco cessation. On nicotine patch. Will need to follow-up with her primary care doctor regarding further treatment. H/O nonobstructive CAD Continue ASA, statin, Metoprolol Chronic diastolic heart failure Torsemide continued Hypertension Continue on losartan and metoprolol Time spent evaluating patient, direct bedside care, chart review, placing orders, interpretation of diagnostic studies, discussion with consultants, patient, and family members, as well as other required patient management activities is 50 minutes Please note the above document was generated using voice recognition software. It may contain grammatical, syntax or spelling errors. Any formal questions or concerns about the content, text or information contained within the body of this dictation should be directly addressed to the provider for clarification Admission and Anticipated Discharge Date Admission Date: May 31, 2023 Subjective Patient seen and examined at bedside. She is sitting up at the side of the bed; not in distress Reports to have continues shortness of breath. Oxygen requirement at baseline. Review of Systems Review of Systems: All systems reviewed & are unremarkable except as noted in Subjective Physical Exam Physical Exam: Physical Exam: Vitals signs as noted above General Appearance:Moderately built and nourished, no apparent distress, Elderly, chronically ill appearing Respiratory/Chest: Decreased breath sounds bilaterally. Occasional wheeze Cardiovascular: S1, S2, No murmur Abdomen/GI:Soft, Non tender, Bowel sounds present Extremities/Musculoskeletal:normal inspection, 1+ edema Neurologic/Psych:AAOX3, grossly no focal neurological deficits Skin: normal color, warm Results & Data Results & Data Vital Signs (Past 12 Hours) Vital Signs Temp Pulse Pulse Resp BP Pulse Ox O2 Del Method 06/04/23 11:00 36.6 C 79 20 131/74 98 CPAP 06/04/23 10:33 82 18 94 Nasal Cannula 06/04/23 09:03 82 06/04/23 08:26 36.7 C 87 18 139/76 96 CPAP 06/04/23 08:00 Nasal Cannula 06/04/23 07:21 88 18 94 CPAP 06/04/23 03:38 65 18 96 CPAP 06/04/23 03:35 36.8 C 73 22 129/66 95 CPAP O2 Flow Rate 06/04/23 11:00 06/04/23 10:33 2 06/04/23 09:03 06/04/23 08:26 06/04/23 08:00 2 06/04/23 07:21 2 06/04/23 03:38 2 06/04/23 03:35
[2023-06-04 13:45] LABS: Appearance Urine Clear (Clear); Bilirubin Urine Negative (Negative); Blood Urine Negative (Negative); Color Urine Yellow; Glucose Urine UA Negative (Negative); Ketones Urine Negative (Negative); Leukocyte Esterase Urine Negative (Negative); Nitrite Urine Negative (Negative); Protein Urine Negative (Negative); Specific Gravity Urine 1.017 (1.000-1.030); Urobilinogen Urine Negative (Negative); pH Urine 5.5 (4.5-7.5)
--- NOTE | 2023-06-04 14:18 | Pharmacy Report ---
Pharmacy Glycemic Short Note 2 - Date of Service June 04, 2023 - Glycemic Short BSG Results (Last 24 hours): 06/03/23 06/03/23 06/04/23 16:50 20:02 05:19 Glucose 125 H POC Glucose 87 142 H 06/04/23 06/04/23 07:45 11:47 Glucose POC Glucose 131 H 294 H OUTPATIENT ANTIDIABETIC REGIMEN: * Glipizide 5 mg PO daily HbA1c: 7.4% (06/02/23) ASSESSMENT: 06/03: * BSGs yesterday [phone] mg/dL * Patient received 1 dose of 40 mg IV solumedrol yesterday and transitioned to 40 mg oral prednisone today * Fasting 131 mg/dL this morning, decreased lantus dose again today with decrease in steroid and will trial NPH with prednisone as patient is high for lunch and then tends to stack for lower BSGs later in the day * NPH ~0.2 units/kg given this morning with prednisone with slightly looser carb ratio- lunch BSG improved but still elevated * Monitor BSG trend throughout the rest of day, increase in NPH vs. tightening carb ratio again tomorrow 06/02/23: * Blood sugars elevated yesterday, ranging 161-343 mg/dL * Received ~100 units of insulin (30 units of which were basal) * Will increase basal and tighten Novolog parameters today * Similar trend today w/ lunch-time BSG > 300 mg/dL * Give additional IV insulin bolus today and further tighten carb ratio 06/01/23: * MU is a 77 year old female admitted for COPD exacerbation likely secondary to pneumonia * Patient started on antibiotic regimen and IV steroids (methylprednisolone 40 mg IV q8h) * Pharmacy consulted for glycemic management this morning (06/01/23) due to hyperglycemia (likely related to IV steroids) * Will be aggressive with initial dosing and adjust as necessary * Lunch BSG of 343 mg/dL - will give IV insulin bolus and further tighten carb ratio PLAN FOR INPATIENT GLYCEMIC CONTROL: * Hold outpatient oral diabetes medications * Basal insulin - decrease * Lantus 15 units SQ qAM * NPH 18 units x 1 this morning with prednisone * Bolus insulin - loosened * NovoLog per scale ACHS or Q6hrs while NPO * Goal Range: Low 110 mg/dL - High 140 mg/dL * Correction Factor: 25 mg/dL/unit * Nutritional / Prandial insulin per carb ratio of 1 unit per 6 grams CHO consumed
[2023-06-04] MEDS: FORMOTEROL 20 MCG/2 ML VIAL NEB SCH (19:03)
[2023-06-04] MEDS: BUDESONIDE 0.5 MG/2 ML VIAL (PULMICORT) NEB SCH (19:03)
[2023-06-04] MEDS: SODIUM CHLORIDE 0.65% NA SOLN 45 ML (OCEAN) PRN (20:47)
[2023-06-05 06:46] LABS: BUN Creatinine Ratio 25.4 (10-20); Calcium 8.5 mg/dl (8.6-10.3); Creatinine Clr Calc Pharmacy 37.9 ml/min; Est GFR (African American) 44.5 ml/min; Est GFR (Non-African American) 38.4 ml/min; Potassium 4.5 mmol/L (3.5-5.1)
[2023-06-05] MEDS: NovoLIN-N (NPH) PER UNIT CHARGE SQ SCH (08:41)
[2023-06-05] MEDS: LANTUS PER UNIT CHARGE SC SCH (08:44)
[2023-06-05] MEDS ORDERED: SPIRONOLACTONE 25 MG TAB PO SCH (09:00)
--- NOTE | 2023-06-05 13:44 | Pharmacy Report ---
Pharmacy Glycemic Short Note 2 - Date of Service June 05, 2023 - Glycemic Short BSG Results (Last 24 hours): 06/04/23 06/04/23 06/05/23 16:04 19:57 05:27 Glucose 75 POC Glucose 148 H 124 H 06/05/23 06/05/23 07:44 11:11 Glucose POC Glucose 75 226 H OUTPATIENT ANTIDIABETIC REGIMEN: * Glipizide 5 mg PO daily HbA1c: 7.4% (06/02/23) ASSESSMENT: 06/04: * Patient received total of 82 units of insulin yesterday, of which 15 units were basal and 18 units NPH * Fasting 75 mg/dL - will decrease basal insulin for this AM, continue same NPH * Prednisone order falling off today, may need to loosen parameters in AM 06/03: * BSGs yesterday 521-421-01-142 mg/dL * Patient received 1 dose of 40 mg IV solumedrol yesterday and transitioned to 40 mg oral prednisone today * Fasting 131 mg/dL this morning, decreased lantus dose again today with decrease in steroid and will trial NPH with prednisone as patient is high for lunch and then tends to stack for lower BSGs later in the day * NPH ~0.2 units/kg given this morning with prednisone with slightly looser carb ratio- lunch BSG improved but still elevated * Monitor BSG trend throughout the rest of day, increase in NPH vs. tightening carb ratio again tomorrow 06/02/23: * Blood sugars elevated yesterday, ranging 161-343 mg/dL * Received ~100 units of insulin (30 units of which were basal) * Will increase basal and tighten Novolog parameters today * Similar trend today w/ lunch-time BSG > 300 mg/dL * Give additional IV insulin bolus today and further tighten carb ratio 06/01/23: * MU is a 77 year old female admitted for COPD exacerbation likely secondary to pneumonia * Patient started on antibiotic regimen and IV steroids (methylprednisolone 40 mg IV q8h) * Pharmacy consulted for glycemic management this morning (06/01/23) due to hyperglycemia (likely related to IV steroids) * Will be aggressive with initial dosing and adjust as necessary * Lunch BSG of 343 mg/dL - will give IV insulin bolus and further tighten carb ratio PLAN FOR INPATIENT GLYCEMIC CONTROL: * Hold outpatient oral diabetes medications * Basal insulin - decrease * Lantus 8 units SQ qAM * NPH 18 units x 1 this morning with prednisone * Bolus insulin - loosened * NovoLog per scale ACHS or Q6hrs while NPO * Goal Range: Low 110 mg/dL - High 140 mg/dL * Correction Factor: 25 mg/dL/unit * Nutritional / Prandial insulin per carb ratio of 1 unit per 6 grams CHO consumed
--- NOTE | 2023-06-05 13:54 | Hospitalist Progress Note ---
Date of Service June 05, 2023 Assessment & Plan (1) Acute hypoxic respiratory failure: (2) COPD exacerbation: (3) Pneumonia: (4) Enterovirus infection: Plan: Patient presenting by referral PCPs office for evaluation of shortness of breath and hypoxia. While at PCPs office, patient was found to be 85% on room air. Acute on chronic respiratory failure with hypoxia Acute COPD exacerbation Enterovirus infection Pneumonia Patient was referred from her primary care office due to hypoxia. --CXR:Hazy right infrahilar opacity. Procalcitonin 0.04 BioFire positive for rhinovirus Continue [id number] DuoNebs, antibiotics with Rocephin and doxycycline and steroid. Status post 5 days of steroid Started on budesonide and formoterol nebs twice daily Titrate oxygen to keep saturations 88 to 92% Two-step oxygen evaluation was done; requires 1 L of oxygen at rest and 2 L on exertion; was done on June 01; likely will need to repeat PT OT evaluation has been ordered given patient's weakness. Type 2 diabetes mellitus HbA1c of 7.4% Hold home oral hypoglycemic agent Currently on insulin; continue. Hyponatremia Sodium of 129; i improved Monitor for now Hypomagnesemia Repleted Tobacco use disorder Discussed about tobacco cessation. On nicotine patch. Will need to follow-up with her primary care doctor regarding further treatment. H/O nonobstructive CAD Continue ASA, statin, Metoprolol Chronic diastolic heart failure Torsemide continued Hypertension Continue metoprolol and losartan. DispositionPT OT ordered; might need rehab. Case management on board. Time spent evaluating patient, direct bedside care, chart review, placing orders, interpretation of diagnostic studies, discussion with consultants, patient, and family members, as well as other required patient management activities is 50 minutes Please note the above document was generated using voice recognition software. It may contain grammatical, syntax or spelling errors. Any formal questions or concerns about the content, text or information contained within the body of this dictation should be directly addressed to the provider for clarification Admission and Anticipated Discharge Date Admission Date: May 31, 2023 Subjective Patient seen and examined at bedside. She is sitting up on the bed; not in distress. Reports intermittent pain in her abdomen and lower extremities. Vital stable; no significant overnight events Review of Systems Review of Systems: All systems reviewed & are unremarkable except as noted in Subjective Physical Exam Physical Exam: Physical Exam: Vitals signs as noted above General Appearance:Moderately built and nourished, no apparent distress, Elderly, chronically ill appearing Respiratory/Chest: Decreased breath sounds bilaterally. Occasional wheeze Cardiovascular: S1, S2, No murmur Abdomen/GI:Soft, Non tender, Bowel sounds present Extremities/Musculoskeletal:normal inspection, 1+ edema Neurologic/Psych:AAOX3, grossly no focal neurological deficits Skin: normal color, warm Results & Data Results & Data Vital Signs (Past 12 Hours) Vital Signs Temp Pulse Pulse Resp BP Pulse Ox O2 Del Method 06/05/23 11:09 36.7 C 66 20 155/71 H 96 Nasal Cannula 06/05/23 10:44 84 18 98 Nasal Cannula 06/05/23 09:00 73 06/05/23 09:00 Nasal Cannula 06/05/23 07:52 71 16 97 CPAP 06/05/23 07:13 36.4 C L 86 20 173/75 H 95 CPAP 06/05/23 04:54 36.6 C 67 20 154/79 H 96 Nasal Cannula 06/05/23 03:24 68 20 96 CPAP O2 Flow Rate 06/05/23 11:09 06/05/23 10:44 2 06/05/23 09:00 06/05/23 09:00 2 06/05/23 07:52 2 06/05/23 07:13 06/05/23 04:54 2 06/05/23 03:24 2
[2023-06-05] MEDS: TORSEMIDE 10 MG TAB PO SCH (14:15)
[2023-06-06] MEDS: cloNIDine HCL 0.1 MG TAB PO ONE (00:25)
[2023-06-06 06:49] LABS: BUN Creatinine Ratio 27.3 (10-20); Creatinine Clr Calc Pharmacy 36.8 ml/min; Est GFR (African American) 45.3 ml/min; Est GFR (Non-African American) 39.1 ml/min; Potassium 3.9 mmol/L (3.5-5.1)
--- NOTE | 2023-06-06 10:20 | Pharmacy Report ---
Pharmacy Glycemic Short Note 2 - Date of Service June 06, 2023 - Glycemic Short BSG Results (Last 24 hours): 06/05/23 06/05/23 06/05/23 11:11 16:02 20:12 Glucose POC Glucose 226 H 134 H 167 H 06/06/23 06/06/23 06/06/23 01:49 05:43 08:08 Glucose 116 H POC Glucose 165 H 107 H OUTPATIENT ANTIDIABETIC REGIMEN: * Glipizide 5 mg PO daily * HbA1c: 7.4% (06/02/23) ASSESSMENT: 06/05: * Mildred received 46 units of insulin yesterday, 8 basal + 18 NPH + 20 bolus. BSGs were: 30-049-668-167 mg/dL. * Fasting BSG was 107 mg/dL this AM. Steroids have been discontinued. Continue with reduced basal dose. * Will continue with current bolus regimen but may need loosened as steroids wear off. 06/04: * Patient received total of 82 units of insulin yesterday, of which 15 units were basal and 18 units NPH * Fasting 75 mg/dL - will decrease basal insulin for this AM, continue same NPH * Prednisone order falling off today, may need to loosen parameters in AM 06/03: * BSGs yesterday [id number] mg/dL * Patient received 1 dose of 40 mg IV solumedrol yesterday and transitioned to 40 mg oral prednisone today * Fasting 131 mg/dL this morning, decreased lantus dose again today with decrease in steroid and will trial NPH with prednisone as patient is high for lunch and then tends to stack for lower BSGs later in the day * NPH ~0.2 units/kg given this morning with prednisone with slightly looser carb ratio- lunch BSG improved but still elevated * Monitor BSG trend throughout the rest of day, increase in NPH vs. tightening carb ratio again tomorrow 06/01: * Blood sugars elevated yesterday, ranging 161-343 mg/dL * Received ~100 units of insulin (30 units of which were basal) * Will increase basal and tighten Novolog parameters today * Similar trend today w/ lunch-time BSG > 300 mg/dL * Give additional IV insulin bolus today and further tighten carb ratio 05/31: * MU is a 77 year old female admitted for COPD exacerbation likely secondary to pneumonia * Patient started on antibiotic regimen and IV steroids (methylprednisolone 40 mg IV q8h) * Pharmacy consulted for glycemic management this morning (06/01/23) due to hyperglycemia (likely related to IV steroids) * Will be aggressive with initial dosing and adjust as necessary * Lunch BSG of 343 mg/dL - will give IV insulin bolus and further tighten carb ratio PLAN FOR INPATIENT GLYCEMIC CONTROL: * Hold outpatient oral diabetes medications * Basal insulin * Lantus 8 units SC AM * Bolus insulin * NovoLog per scale ACHS or Q6hrs while NPO * Goal Range: Low 110 mg/dL - High 140 mg/dL * Correction Factor: 25 mg/dL/unit * Nutritional / Prandial insulin per carb ratio of 1 unit per 6 grams CHO consumed
--- NOTE | 2023-06-06 13:40 | Hospitalist Progress Note ---
Date of Service June 06, 2023 Assessment & Plan (1) Acute hypoxic respiratory failure: (2) COPD exacerbation: (3) Pneumonia: (4) Enterovirus infection: Plan: Patient presenting by referral PCPs office for evaluation of shortness of breath and hypoxia. While at PCPs office, patient was found to be 85% on room air. Acute on chronic respiratory failure with hypoxia Acute COPD exacerbation Enterovirus infection Pneumonia Patient was referred from her primary care office due to hypoxia. --CXR:Hazy right infrahilar opacity. Procalcitonin 0.04 BioFire positive for rhinovirus Continue [id number] DuoNebs, antibiotics with Rocephin and doxycycline and steroid. Status post 5 days of steroid Continue on budesonide and formoterol nebs twice daily Titrate oxygen to keep saturations 88 to 92% Two-step oxygen evaluation was done; requires 1 L of oxygen at rest and 2 L on exertion; was done on June 01; likely will need to repeat PT OT evaluation Type 2 diabetes mellitus HbA1c of 7.4% Hold home oral hypoglycemic agent Currently on insulin; continue. Hyponatremia Sodium of 129; i improved to 131 Hypomagnesemia Repleted Tobacco use disorder Discussed about tobacco cessation. On nicotine patch. Will need to follow-up with her primary care doctor regarding further treatment. H/O nonobstructive CAD Continue ASA, statin, Metoprolol Chronic diastolic heart failure Torsemide continued Hypertension Continue metoprolol and losartan. DispositionPT OT ordered; might need rehab. Case management on board. Possible DC in a.m. if clinically stable Please note the above document was generated using voice recognition software. It may contain grammatical, syntax or spelling errors. Any formal questions or concerns about the content, text or information contained within the body of this dictation should be directly addressed to the provider for clarification Admission and Anticipated Discharge Date Admission Date: May 31, 2023 Subjective Patient seen and examined at bedside. Comfortable; not in distress. reports that she feel better compared to yesterday. No significant overnight events Review of Systems Review of Systems: All systems reviewed & are unremarkable except as noted in Subjective Physical Exam Physical Exam: Physical Exam: Vitals signs as noted above General Appearance:Moderately built and nourished, no apparent distress, Elderly, chronically ill appearing Respiratory/Chest: Decreased breath sounds bilaterally. Occasional wheeze Cardiovascular: S1, S2, No murmur Abdomen/GI:Soft, Non tender, Bowel sounds present Extremities/Musculoskeletal:normal inspection, 1+ edema Neurologic/Psych:AAOX3, grossly no focal neurological deficits Skin: normal color, warm Results & Data Results & Data Vital Signs (Past 12 Hours) Vital Signs Temp Pulse Pulse Resp BP Pulse Ox O2 Del Method 06/06/23 11:07 37.3 C 73 20 97/58 L 96 CPAP 06/06/23 11:01 79 18 98 CPAP 06/06/23 08:00 Nasal Cannula 06/06/23 07:58 69 06/06/23 07:29 76 18 96 CPAP 06/06/23 07:21 36.7 C 80 19 156/65 H 94 Nasal Cannula 06/06/23 03:19 36.5 C 69 18 163/75 H 92 Nasal Cannula 06/06/23 02:45 78 18 95 CPAP O2 Flow Rate 06/06/23 11:07 06/06/23 11:01 06/06/23 08:00 2 06/06/23 07:58 06/06/23 07:29 2 06/06/23 07:21 2 06/06/23 03:19 2 06/06/23 02:45 3
[2023-06-07 07:20] LABS: Basophils # (auto) 0.01 K/uL (0.00-0.20); Basophils % (auto) 0.1 %; Eosinophils # (auto) 0.24 K/uL (0.00-0.50); Eosinophils % (auto) 3.4 %; Hemoglobin 14.1 g/dl (12.0-16.0); Immature Granulocytes % (auto) 1.4 %; Lymphocytes % (auto) 36.6 %; Mean Corpuscular Hemoglobin 29.9 pg (25.0-34.0); Mean Corpuscular Hgb Conc 34.4 g/dL (32.0-36.0); Mean Corpuscular Volume 86.9 fL (80.0-100.0); Mean Platelet Volume 9.7 fL (9.4-12.4); Monocytes # (auto) 0.63 K/uL (0.11-0.59); Monocytes % (auto) 8.9 %; Neutrophils # (auto) 3.52 K/uL (1.40-6.50); Neutrophils % (auto) 49.6 %; Platelet Count 148 K/uL (130-400); RDW Coefficient of Variation 14.1 % (11.5-14.5); RDW Standard Deviation 45.1 fL (36.4-46.3); Red Blood Count 4.72 M/uL (4.20-5.40)
[2023-06-07] MEDS: LANTUS PER UNIT CHARGE SC SCH (08:46)
[2023-06-07 08:58] LABS: Calcium 8.2 mg/dl (8.6-10.3); Creatinine Clr Calc Pharmacy 36.9 ml/min; Est GFR (African American) 45.3 ml/min; Est GFR (Non-African American) 39.1 ml/min; Potassium 3.7 mmol/L (3.5-5.1)
--- NOTE | 2023-06-07 10:18 | Pharmacy Report ---
Pharmacy Glycemic Short Note 2 - Date of Service June 07, 2023 - Glycemic Short BSG Results (Last 24 hours): 06/06/23 06/06/23 06/06/23 11:51 13:56 15:22 Glucose POC Glucose 114 H 90 81 06/06/23 06/06/23 06/07/23 16:43 20:45 06:55 Glucose 84 POC Glucose 125 H 194 H 06/07/23 07:58 Glucose POC Glucose 100 H OUTPATIENT ANTIDIABETIC REGIMEN: * Glipizide 5 mg PO daily * HbA1c: 7.4% (06/02/23) ASSESSMENT: 06/06: * Patient received 31 units of insulin yesterday, 8 basal + 23 bolus. BSGs were: 106-516-66-81-125-194 mg/dL. Patient reported feeling off after lunchtime so RN checked BSG and it was 90 mg/dL. Patient given snack and 1-hr repeat was 81 mg/dL. * Fasting BSG was 100 mg/dL this AM. Reduced basal by ~35%. Bolus was loosened last evening. Continue with this for now. 06/05: * Mildred received 46 units of insulin yesterday, 8 basal + 18 NPH + 20 bolus. BSGs were: 76-250-560-167 mg/dL. * Fasting BSG was 107 mg/dL this AM. Steroids have been discontinued. Continue with reduced basal dose. * Will continue with current bolus regimen but may need loosened as steroids wear off. 06/04: * Patient received total of 82 units of insulin yesterday, of which 15 units were basal and 18 units NPH * Fasting 75 mg/dL - will decrease basal insulin for this AM, continue same NPH * Prednisone order falling off today, may need to loosen parameters in AM 06/03: * BSGs yesterday 628-961-57-142 mg/dL * Patient received 1 dose of 40 mg IV solumedrol yesterday and transitioned to 40 mg oral prednisone today * Fasting 131 mg/dL this morning, decreased lantus dose again today with decrease in steroid and will trial NPH with prednisone as patient is high for lunch and then tends to stack for lower BSGs later in the day * NPH ~0.2 units/kg given this morning with prednisone with slightly looser carb ratio- lunch BSG improved but still elevated * Monitor BSG trend throughout the rest of day, increase in NPH vs. tightening carb ratio again tomorrow 06/01: * Blood sugars elevated yesterday, ranging 161-343 mg/dL * Received ~100 units of insulin (30 units of which were basal) * Will increase basal and tighten Novolog parameters today * Similar trend today w/ lunch-time BSG > 300 mg/dL * Give additional IV insulin bolus today and further tighten carb ratio 05/31: * MU is a 77 year old female admitted for COPD exacerbation likely secondary to pneumonia * Patient started on antibiotic regimen and IV steroids (methylprednisolone 40 mg IV q8h) * Pharmacy consulted for glycemic management this morning (06/01/23) due to hyperglycemia (likely related to IV steroids) * Will be aggressive with initial dosing and adjust as necessary * Lunch BSG of 343 mg/dL - will give IV insulin bolus and further tighten carb ratio PLAN FOR INPATIENT GLYCEMIC CONTROL: * Hold outpatient oral diabetes medications * Basal insulin * Lantus 5 units SC AM * Bolus insulin * NovoLog per scale ACHS or Q6hrs while NPO * Goal Range: Low 110 mg/dL - High 140 mg/dL * Correction Factor: 30 mg/dL/unit * Nutritional / Prandial insulin per carb ratio of 1 unit per 10 grams CHO consumed
--- NOTE | 2023-06-07 11:38 | Discharge Summary ---
Date of Service June 07, 2023 Admission HPI Per Admitting Provider 77-year-old female with PMH DM type II, COPD, HTN, nonobstructive CAD, tobacco abuse, chronic diastolic CHF, and other problems listed below who presents to the ED by referral of PCP office for evaluation of shortness of breath and hypoxia. History is obtained from the patient and review of outpatient PCP, cardiology, pulmonary records. Patient reports increasing shortness of breath that began about 5 days ago. She reports shortness of breath with minimal exertion. She has had increased wheezing. Reports cough productive for white sputum. Patient reports she has oxygen at home due to a prior hospitalization at the beginning of the year for RSV. She has been off oxygen for the past couple of months however has been using it intermittently over the past 5 days. Patient was seen at her PCPs office today and was found to be 85% on room air. Patient was referred to the ED for further evaluation. She denies chest pain and palpitations. No lightheadedness, dizziness, diaphoresis, syncopal events. She denies abdominal pain, nausea, vomiting, diarrhea. No urinary symptoms. Reports a right-sided back/flank pain that has been ongoing for the past 1 month. Describes pain as sharp and intermittent. Was seen at [place] [facility] on 05/[address] scan, results unavailable for my review. In the ED, patient is maintaining saturations on 2 L of oxygen via nasal cannula. Respiratory viral panel positive for entero-/rhinovirus. CXR shows a hazy right infrahilar opacity consistent with pneumonia. Patient was given neb, IV Solu-Medrol, IV ceftriaxone, IV magnesium. Admission Exam Per Admitting Provider Constitutional: WD/WN, vitals as above + ill appearing; no acute distress Eyes: PERRL, conjunctivae normal, anicteric sclerae ENMT: external ear and nose normal, oropharynx normal Mouth: + dry oral mucous membranes Respiratory: Patient short of breath with minimal exertion, unable to speak in full sentences at times, lungs are very tight on exam with minimal air movement and faint end expiratory wheezing Cardiovascular: Rate/Rhythm: regular rate and regular rhythm Vessels: normal peripheral pulses Extremities: no edema Gastrointestinal (Abdomen): normal bowel sounds, soft, nontender, no hepatosplenomegaly Musculoskeletal: no cyanosis or clubbing, extremities motor strength 5/5 Skin: no rashes, warm and dry Neurologic: PERRL, EOMI, accommodation nl, no face palsy, no dysarthria Psychiatric: A+Ox3, euthymic affect Principal Diagnosis Enterovirus URTI Possible pneumonia Acute COPD exacerbation Discharge Exam General Appearance:Moderately built and nourished, no apparent distress, Elderly, chronically ill appearing Respiratory/Chest: Decreased breath sounds bilaterally. no wheeze Cardiovascular: S1, S2, No murmur Abdomen/GI:Soft, Non tender, Bowel sounds present Extremities/Musculoskeletal:normal inspection, trace ble edema Neurologic/Psych:AAOX3, grossly no focal neurological deficits Skin: normal color, warm Discharge Data Allergies Allergy/AdvReac Type Severity Reaction Status Date / Time Iodinated Contrast Media Allergy Severe Hives Verified 07/13/22 07:50 Influenza Virus Vaccines Allergy Intermediate Hives Verified 07/13/22 07:50 Sulfa (Sulfonamide Allergy Unknown Pt doesn't Verified 07/13/22 07:50 Antibiotics) remember Consultations 05/31/23 12:48 ED Decision to Admit Stat Ordered Studies 05/31/23 16:22 US soft tissue ext ltd Routine Hospital Course (1) Acute hypoxic respiratory failure: (2) COPD exacerbation: (3) Pneumonia: (4) Enterovirus infection: Per prior attending with addendum: Patient presenting by referral PCPs office for evaluation of shortness of breath and hypoxia. While at PCPs office, patient was found to be 85% on room air. Acute on chronic respiratory failure with hypoxia Acute COPD exacerbation Enterovirus infection Pneumonia Patient was referred from her primary care office due to hypoxia. --CXR:Hazy right infrahilar opacity. Procalcitonin 0.04 BioFire positive for rhinovirus Continue [id number] DuoNebs, antibiotics with Rocephin and doxycycline and steroid. Status post 5 days of steroid Continue on budesonide and formoterol nebs twice daily Titrate oxygen to keep saturations 88 to 92% Two-step oxygen evaluation was done; requires 1 L of oxygen at rest and 2 L on exertion; was done on June 01; likely will need to repeat PT OT evaluation Type 2 diabetes mellitus HbA1c of 7.4% Hold home oral hypoglycemic agent Currently on insulin; continue. Hyponatremia Sodium of 129; i improved to 131 Hypomagnesemia Repleted Tobacco use disorder Discussed about tobacco cessation. On nicotine patch. Will need to follow-up with her primary care doctor regarding further treatment. H/O nonobstructive CAD Continue ASA, statin, Metoprolol Chronic diastolic heart failure Torsemide continued Hypertension Continue metoprolol and losartan. DispositionPT OT ordered; might need rehab. Case management on board. Possible DC in a.m. if clinically stable Addendum 06/07/2023: Patient was seen and examined at bedside. Patient reports improvement in her shortness of breath and reports feeling better, is hemodynamically stable and would like to go home. Will need 2L NC O2 w/ activity. For her hyponatremia, her Aldactone has been on hold, will continue to hold Aldactone until further lab test and PCP evaluation in a week time upon discharge. Patient to increase protein content in diet, limit salt intake to less than 2 g a day. Patient will need repeat chest x-ray in about 1 to 2 months time to document resolution of her pneumonia. Patient completed antibiotic course for Rocephin, 1 more day of doxycycline left which will be ordered. Patient completed a steroid course while in hospital. She will be discharged on nicotine patch. She is being discharged with following instruction at the point of discharge: Follow-up with your primary care physician within a week time and likely you will need labs CBC/CMP/magnesium/phosphorus. You will be discharged on antibiotic to complete the course for pneumonia. You completed the course of steroid and your wheezing has resolved. You will need repeat chest imaging in about 1 to 2 months time to document resolution of your pneumonia. Coordinate with your PCP office to do set up the test. You will need oxygen [2 L with activity] upon discharge. Maintain low-sodium diet of less than 2 g/day, increase solute intake in diet including protein intake to help with sodium level. Your Aldactone has been held until further lab test and further evaluation by your PCP office within a week time. Take your medications as prescribed. Please make sure that you are able to get your medications today by calling your pharmacy before you leave the hospital so that your treatment continuity is not broken. Please note the above document was generated using voice recognition software. It may contain grammatical, syntax or spelling errors. Any formal questions or concerns about the content, text or information contained within the body of this dictation should be directly addressed to the provider for clarification Home Health Attestation I certify that this patient is under my care and that I, or a physicians assistant guest services manager working with me, had a face to-face encounter that meets the home health [id number] encounter requirements with this patient. The encounter with the patient was in whole, or in part, for the following medical condition, which is the primary reason for home health care (list medical condition): pneumonia-SOB I certify that, based on my findings, the following services are medically necessary home health services: My clinical findings support the need for the above services because: OT Assess ADL Status and Restore Function w ADLs PT Assessment for Endurance / Balance / Strength PT Eval for Safety and Mobility PT Eval for Safety, Gait Training, Assistive Devices PT Gait and Balance Training, Strengthening and Safety Skilled Nsg Assessment Further, I certify that my clinical findings support that this patient is homebound (i.e. absences from home require considerable and taxing effort and are for medical reasons or [employer] services or infrequently or of short duration when for other reasons) because: Transportation Assistance/Unable to Leave Home Unassisted Certification for Home Health Services: Based on the above findings, I certify that this patient is confined to the home and needs intermittent jail care, physical therapy and/or speech therapy or continues to need occupational therapy. The patient is under my care, and I have initiated the establishment of the plan of care. This patient will be followed by a physician who will periodically review the plan of care. Total Time Total Time Spent Total Time Spent (In Minutes): 45 Discharge Plan Discharge Items Patient Disposition: Home - Home Health Services Reason For Visit: SOB,DOC REF,85 SP02 Discharge Diagnosis: Enterovirus URTI Possible pneumonia Acute COPD exacerbation Condition on Discharge: Fair Activity: Resume your previous activity Non-emergency contact: Primary Care Provider Call non-emergency contact if: you have any medication questions and your symptoms worsen Follow-up/Referrals: Sandra Rasheed MD [Primary Care Provider] - (Date & Time 06/07/2023 11:20 AM Provider Susy Ochoa PA-C Department Family Medicine [facility] ) Nir Ward MD [Outside Practitioners] - (Date & Time 06/07/2023 3:00 PM Provider Nir Ward MD Department Pulmonary Medicine, [facility] ) Diet: Carb Consistent or DM2 and Heart Healthy Addtl Attending Provider Instructions: Follow-up with your primary care physician within a week time and likely you will need labs CBC/CMP/magnesium/phosphorus. You will be discharged on antibiotic to complete the course for pneumonia. You completed the course of steroid and your wheezing has resolved. You will need repeat chest imaging in about 1 to 2 months time to document resolution of your pneumonia. Coordinate with your PCP office to do set up the test. You will need oxygen [2 L with activity] upon discharge. Maintain low-sodium diet of less than 2 g/day, increase solute intake in diet including protein intake to help with sodium level. Your Aldactone has been held until further lab test and further evaluation by your PCP office within a week time. Take your medications as prescribed. Please make sure that you are able to get your medications today by calling your pharmacy before you leave the hospital so that your treatment continuity is not broken. Pending Studies at Discharge: No Stand-Alone Forms: My [facility] OVIA, Smoking Cessation Medications and DC Order Prescriptions: New doxycycline hyclate 100 mg Capsule 100 mg PO BID 1 Days Qty: 2 0RF nicotine [Nicoderm CQ] 21 mg/24 hr Patch 24 Hour 21 mg transdermal QAM Qty: 28 0RF guaifenesin [Mucinex] 600 mg Tablet Extended Release 12hr 1,200 mg PO Q12 2 Days Qty: 8 0RF Continued losartan 50 mg Tablet 50 mg PO QAM atorvastatin 40 mg Tablet 40 mg PO QAM aspirin 81 mg Tablet,Delayed Release (Dr/Ec) 81 mg PO QAM omeprazole 20 mg Capsule,Delayed Release(Dr/Ec) 20 mg PO QAM albuterol sulfate 90 mcg/actuation Hfa Aerosol Inhaler 2 inh INHALATION Q4 PRN (Reason: Shortness Of Breath Or Wheezing) glipizide 5 mg Tablet 5 mg PO QAM Rx Instructions: has been taking 10 mg due to steroid use (when sugar is high) metoprolol tartrate 25 mg Tablet 12.5 mg PO BID Anoro Ellipta 62.5-25 mcg/actuation Blister With Device 1 inh INHALATION DAILY Arnuity Ellipta 200 mcg/actuation Blister With Device 1 inh INHALATION HS torsemide 10 mg tablet 10 mg PO QAM torsemide 10 mg tablet 10 mg PO [id number] Rx Instructions: take 10 mg in afternoon on MON,WED,FRI in additon to am dose ipratropium-albuterol 0.5 mg-3 mg(2.5 mg base)/3 mL solution for nebulization 3 ml INHALATION Q6 PRN (Reason: Dyspnea) cholecalciferol (vitamin D3) [Vitamin D3] 25 mcg (1,000 unit) Tablet 25 mcg PO HS calcium carbonate-vitamin D3 600 mg-25 mcg (1,000 unit) Capsule 1 cap PO DAILY Held spironolactone 25 mg Tablet 12.5 mg PO [id number] Hold Instructions: Resume on 06/13/23. Hold until repeat labs and further eval by PCP within a week time. Rx Instructions: ,,mon,sun spironolactone 25 mg Tablet 25 mg PO 3XWK Hold Instructions: Resume on 06/13/23. Hold until repeat labs and further eval by PCP within a week time. Rx Instructions: monday,monday,monday Discharge Orders: Discharge Order (Routine); Ordered 06/07/23 Ordered By: Danisha Mortensen/Other Patient Handouts: Managing Type 2 Diabetes Admission Data Admit Date/Time: 05/31/23 13:12 Attending Provider: Danisha Lancaster Admit Provider: Kristy Deleon Primary Care Provider: Sandra Rasheed Other Providers: Kristy Deleon; [facility]
== END 2023-06-07 12:30 | disposition home health service (06) | DRG 193 ==
LOC: ED 11:20 → 4W 13:12 → SUATTDRO 13:12 → 4W 14:20

== ENCOUNTER 2023-07-31 15:48 | Inpatient (IN) ==
--- NOTE | 2023-07-31 16:05 | Emergency Department Note ---
Impression & Plan Acute dyspnea, Hypoxia, Hypomagnesemia, Parainfluenza virus infection ED Provider Note HISTORY OF PRESENT ILLNESS: Patient is a 77-year-old female presenting with shortness of breath. Patient reports she was diagnosed with pneumonia 10 days ago. She started on a 10-day course of doxycycline and reports that she has been on the Doxy for the last 6 days. Reports she is also been on 40 mg of prednisone. However, she reports in the last 48 hours she has become significantly short of breath. Reports a cough productive of a clear mucus. Denies any fevers. She does not normally wear any supplemental oxygen. Reports that she is only able to take about 5 steps before becoming short of breath and feeling like her legs are going to give out. She denies any chest pain, but does report when she is significantly short of breath she has some chest tightness. Denies any DVT or PE history. ROS: as above PHYSICAL EXAM: Constitutional: Patient appears in no acute distress. HENT: Head: Normocephalic and atraumatic. Eyes: EOMI, PERRL Mouth/Throat: Mucous membranes moist. Neck: Trachea midline. Neck supple. Cardiovascular: RRR, No murmurs, rubs or gallops. Intact distal pulses. Pulmonary/Chest: Patient is on 2 L nasal cannula. She is tachypneic and conversationally dyspneic. She has coarse breath sounds bilaterally in the lower lung bases. She has notable expiratory wheezes in the bilateral upper lung bynum. Abdominal: Abdomen soft, no tenderness, rebound or guarding. Musculoskeletal: No edema, tenderness or deformity noted. Skin: Warm and dry. No rash, erythema, pallor or cyanosis Psychiatric: Appropriate mood and affect for situation. Neurological: Alert and keenly responsive. CN II-XII grossly intact, moving all extremities equally and fully. MDM: - Vitals signs showed hypertension and hypoxia. Patient's initial oxygen saturation on room air was 89%. She is placed on 2 L nasal cannula. - History obtained via patient. History as above. - Chronic conditions affecting care: CAD; DM-2; HTN; COPD - Differential diagnoses include, but are not limited to: Congestive heart failure; acute coronary syndrome; COPD/asthma exacerbation; pulmonary edema; pulmonary embolism; pneumonia; pneumothorax; viral syndrome - Order placed for continuous cardiac monitoring. At this time, monitor showed rate of 74 bpm with normal sinus rhythm, per my interpretation. - External medical records reviewed. Discharge summary dated 06/07/2023 was reviewed. Patient was admitted at that time for shortness of breath and acute COPD exacerbation. Was found to have a possible pneumonia and any enterovirus. - EKG interpreted by myself showed normal sinus rhythm. Rate 75 bpm. QT 374. No acute ischemic changes. - Laboratory workup interpreted by myself showed normal WBC; slight hyponatremia (Na 132); hypomagnesemia (Mg 1.3); normal troponin; slightly elevated BNP (119) - Viral respiratory panel positive for parainfluenza type 3 - CXR negative for pneumonia, per my interpretation - VBG showed slight respiratory acidosis (pH 7.32; pCO2 51) - Patient given duoneb in ER. Given 1g IV magnesium for electrolyte replacement. - Discussion was had with community case manager about patient's case and need for admission - Hospitalist consulted for admission. Requested CT PE be obtained. - Patient admitted to [facility] Hospitalist service for further evaluation and management. ASSESSMENT AND PLAN: Diagnosis: acute dyspnea; hypoxia; parainfluenza virus infection; hypomagnesemia Plan: admit Past Med/Surg History Problem List (Updated 07/31/23 @ 18:15 by Ondina Frost MD) Parainfluenza virus infection (Acute) Hypomagnesemia (Acute) Hypoxia (Acute) Acute dyspnea (Acute) Hypomagnesemia (Acute) Elevated troponin (Acute) Rhinovirus infection (Acute) SOB (shortness of breath) (Acute) Pneumonia (Acute) COPD exacerbation (Acute) Hypoxia (Acute) Enterovirus infection Pneumonia Back pain Chronic diastolic CHF (congestive heart failure) Acute hypoxic respiratory failure COPD exacerbation Hypertension Diabetes mellitus, type 2 NIDDM CAD (coronary artery disease) Medical History Chronic diastolic CHF (congestive heart failure) CAD (coronary artery disease) Osteoarthritis CKD (chronic kidney disease) DJD (degenerative joint disease) Neuropathy Tachycardia reason colon/EGD being done at hospital per pt, Metoprolol was added for this Diabetes mellitus, type 2 NIDDM GERD (gastroesophageal reflux disease) Hypertension Hyperlipidemia History of COVID-05 October 2021 > not hospitalized Sleep apnea cpap Chronic obstructive pulmonary disease rare res inh use Surgical History History of tonsillectomy Hx of lumpectomy benign > right History of surgery on wrist right History of repair of rotator cuff right History of hysterectomy History of bladder surgery bladder tack History of esophagogastroduodenoscopy (EGD) History of colonoscopy History of herniorrhaphy History of cholecystectomy History of appendectomy History of tooth extraction History of cardiac cath [place] approx 5 yrs ago per pt, no stents Family History Mother Diabetes Grandmother (Maternal) Diabetes Social History Smoking Status: Former smoker Tobacco Type: Cigarettes Cigarettes Per Day: less than 1/2 ppd; Second Hand Exposure: No; Do You Dip or Chew Tobacco: No; Hx Alcohol Use: Yes Alcohol type: wine Hx Substance Use: No Preferred Language: Syriac Communication Ability: Effective Elevated Work Platform Operator Required: No Beliefs That Will Affect Care: None Current Living Situation: Alone Feels Safe at Home: Yes Assistive Devices: Oxygen - Continuous Allergies Allergies Allergy/AdvReac Type Severity Reaction Status Date / Time Iodinated Contrast Media Allergy Severe Hives--48 Verified 07/31/23 17:46 HRS AFTER HEART CATH PROCEDURE Sulfa (Sulfonamide Allergy Unknown Pt doesn't Verified 07/31/23 17:46 Antibiotics) remember Influenza Virus Vaccines AdvReac Intermediate FLU-LIKE Verified 07/31/23 17:46 SYMPTOMS Home Meds Home Medications Medication Instructions Recorded Confirmed aspirin 81 mg tablet,delayed 81 mg PO QAM 07/04/22 07/31/23 release atorvastatin 40 mg tablet 40 mg PO HS 07/04/22 07/31/23 fluticasone furoate 200 1 inh inhalation HS 07/04/22 07/31/23 mcg/actuation blister powder for inhalation (Arnuity Ellipta) glipizide 5 mg tablet 5 mg PO QAM 07/04/22 07/31/23 losartan 50 mg tablet 50 mg PO QAM 07/04/22 07/31/23 metoprolol tartrate 25 mg tablet 12.5 mg PO BID 07/04/22 07/31/23 omeprazole 20 mg capsule,delayed 20 mg PO QAM 07/04/22 07/31/23 release spironolactone 25 mg tablet 12.5 mg PO 4XWK 07/04/22 07/31/23 spironolactone 25 mg tablet 25 mg PO 3XWK 07/04/22 07/31/23 umeclidinium 62.5 mcg-vilanterol 1 inh inhalation DAILY 07/04/22 07/31/23 25 mcg/actuation powdr for inhalation (Anoro Ellipta) calcium carbonate 600 mg-vitamin 1 cap PO DAILY 12/08/22 07/31/23 D3 25 mcg (1,000 unit) capsule cholecalciferol (vitamin D3) 25 25 mcg PO HS 12/08/22 07/31/23 mcg (1,000 unit) tablet (Vitamin D3) torsemide 10 mg tablet 10 mg PO 3XWK 12/08/22 07/31/23 torsemide 10 mg tablet 10 mg PO QAM 12/08/22 07/31/23 ascorbic acid (vitamin C) 1,000 mg 1 g PO DAILY 07/31/23 07/31/23 tablet (Vitamin C) doxycycline hyclate 100 mg capsule 100 mg PO BID 07/31/23 07/31/23 mirtazapine 7.5 mg tablet 7.5 mg PO HS 07/31/23 07/31/23 Results & Data (ED) Vital Signs Vital Signs - 24 hr 07/31/23 15:54 07/31/23 15:55 07/31/23 16:10 Temperature 36.5 C Temperature Source Oral Pulse Rate 81 Pulse Rate [Left Finger] Respiratory Rate 27 H Respiratory Effort / Characteristics Labored SOB on Exertion Respiratory Depth Retractive Blood Pressure 165/76 H Blood Pressure [Left Arm] Blood Pressure Mean 105 Blood Pressure Mean [Left Arm] Blood Pressure Position Sitting Blood Pressure Position [Left Arm] Pulse Oximetry 88 L 94 Oxygen Delivery Method Room Air Nasal Cannula Oxygen Flow Rate 4 Sepsis Recent Fever Within 48 Hours No Sepsis New/Unexplained Change in Mental Status No Sepsis Action Taken by Nursing No Action Required 07/31/23 16:27 07/31/23 16:54 Temperature Temperature Source Pulse Rate 71 Pulse Rate [Left Finger] 72 Respiratory Rate 30 H Respiratory Effort / Characteristics Respiratory Depth Blood Pressure Blood Pressure [Left Arm] 170/72 H Blood Pressure Mean Blood Pressure Mean [Left Arm] 104 Blood Pressure Position Blood Pressure Position [Left Arm] Sitting Pulse Oximetry 97 Oxygen Delivery Method Nasal Cannula Oxygen Flow Rate 3 Sepsis Recent Fever Within 48 Hours Sepsis New/Unexplained Change in Mental Status Sepsis Action Taken by Nursing Laboratory Data 07/31/23 16:09 07/31/23 16:09 Lab Results 07/31/23 07/31/23 07/31/23 Range/Units 16:09 16:11 17:11 WBC 9.70 (4.8-10.8) K/ul RBC 5.36 (4.20-5.40) M/uL Hgb 16.6 H (12.0-16.0) g/dl Hct 45.9 (37.0-47.0) % MCV 85.6 (80.0-100.0) fL MCH 31.0 (25.0-34.0) pg MCHC 36.2 H (32.0-36.0) g/dL RDW Std Deviation 41.9 (36.4-46.3) fL RDW Coeff of Santhosh 13.5 (11.5-14.5) % Plt Count 234 (130-400) K/uL MPV 9.9 (9.4-12.4) fL Immature Gran % (Auto) 0.5 % Neut % (Auto) 62.5 % Lymph % (Auto) 29.3 % Bertie % (Auto) 6.6 % Eos % (Auto) 0.7 % Baso % (Auto) 0.4 % Neut # (Auto) 6.06 (1.40-6.50) K/uL Lymph # (Auto) 2.84 (1.20-3.40) K/uL Bertie # (Auto) 0.64 H (0.11-0.59) K/uL Eos # (Auto) 0.07 (0.00-0.50) K/uL Baso # (Auto) 0.04 (0.00-0.20) K/uL Immature Gran # (Auto) 0.05 (0.01-0.20) K/uL PT 11.1 (9.0-12.0) Seconds INR 1.0 (0.9-1.1) VBG pH 7.32 L (7.36-7.41) VBG pCO2 51 H (38-50) mmHg VBG pO2 < 20 mmHg VBG HCO3 26 mmol/L VBG O2 Saturation < 60.0 % VBG Base Excess -0.5 mEq/L Sodium 132 L (136-145) mmol/L Potassium 3.6 (3.5-5.1) mmol/L Chloride 98 (98-107) mmol/L Carbon Dioxide 25 (21-32) mmol/L Anion Gap 9 (3-11) BUN 32 H (6-23) mg/dl Creatinine 1.41 H (0.6-1.2) mg/dl Est Cr Clr Drug Dosing 36.6 ml/min Est GFR ( Amer) 41.8 ml/min Est GFR (Non-Af Amer) 36.1 ml/min BUN/Creatinine Ratio 22.7 H (10-20) Glucose 179 H (70-99(Fasting)) mg/dl Calcium 9.5 (8.6-10.3) mg/dl Magnesium 1.3 L (1.7-2.4) mg/dl Total Bilirubin 0.9 (0.2-1.0) mg/dl AST 17 (13-39) U/L ALT 20 (7-52) U/L Alkaline Phosphatase 107 H (34-104) U/L Troponin I High Sens 8.9 (0-14) pg/ml B-Natriuretic Peptide 119 H (0-100) pg/ml Total Protein 6.7 (6.0-8.3) gm/dl Albumin 4.2 (3.4-5.0) gm/dl Globulin 2.5 (2.5-4.0) gm/dl Albumin/Globulin Ratio 1.7 (0.9-2) Adenovirus (PCR) Not Detected (NotDetected) B. pertussis DNA (PCR) Not Detected (NotDetected) B.parapertussis DNA PCR Not Detected (NotDetected) C. pneumoniae DNA (PCR) Not Detected (NotDetected) Coronavirus OC43 (PCR) Not Detected (NotDetected) Coronavirus HKU1 (PCR) Not Detected (NotDetected) Coronavirus 229E (PCR) Not Detected (NotDetected) SARS-CoV-2 (PCR) Not Detected (NotDetected) Coronavirus NL63 (PCR) Not Detected (NotDetected) Human Metapneumovir PCR Not Detected (NotDetected) Influenza Type A (PCR) Not Detected (NotDetected) Influenza Type B (PCR) Not Detected (NotDetected) M. pneumoniae (PCR) Not Detected (NotDetected) Parainfluenza 1 (PCR) Not Detected (NotDetected) Parainfluenza 2 (PCR) Not Detected (NotDetected) Parainfluenza 3 (PCR) DETECTED A (NotDetected) Parainfluenza 4 (PCR) Not Detected (NotDetected) RSV (PCR) Not Detected (NotDetected) Entero/Rhino (PCR) Not Detected (NotDetected) Administered Medications Discontinued Medications Albuterol (Albut/Ipratrop 3mg/0.5mg Neb 3 Ml Vial) 3 ml NEB NOW STA; Protocol Stop: 07/31/23 16:54 Last Admin: 07/31/23 17:38 Dose: 3 ml Documented By: FATEMEH Magnesium Sulfate/Dextrose (Magnesium Sulfate / D5w) 1 gm in 100 mls @ 100 mls/hr IV NOW STA Stop: 07/31/23 17:52 Last Admin: 07/31/23 17:38 Dose: 100 mls/hr Documented By: FATEMEH Imaging Data Radiologist's Impression: Chest X-Ray 07/31/23 16:02 SINGLE VIEW CHEST CLINICAL HISTORY: Dyspnea FINDINGS: An AP, portable, upright chest radiograph is compared to study dated 05/31/2023. Correlation is made with chest CT dated 02/12/2020. The heart is mild enlarged noting atherosclerotic calcification of the thoracic aorta. There is mild pulmonary vascular congestion. Emphysema and chronic interstitial thickening is similar to previous. There is bibasilar scarring/atelectasis. No airspace consolidation or large pleural effusion is identified. No pneumothorax is seen. The skeletal structures are osteopenic. The bony thorax is grossly intact. Arthritic change is seen in the shoulders and spine. IMPRESSION: 1. Cardiomegaly and emphysema with mild pulmonary vascular congestion. 2. No airspace consolidation or large pleural effusion is identified ACT 112: Negative or not required by law. Electronically signed by: Osito Pepper M.D. 07/31/2023 4:22 PM Discharge Plan Visit Data Chief Complaint: Shortness of Breath/Dyspnea ED Provider: Ondina Frost Discharge Problem: Acute dyspnea, Hypoxia, Hypomagnesemia, Parainfluenza virus infection Forms Stand Alone Forms: [facility] [employer] Prescriptions Prescriptions: No Action losartan 50 mg Tablet 50 mg PO QAM atorvastatin 40 mg Tablet 40 mg PO HS aspirin 81 mg Tablet,Delayed Release (Dr/Ec) 81 mg PO QAM spironolactone 25 mg Tablet 12.5 mg PO 4XWK Hold Instructions: Resume on 06/13/23. Hold until repeat labs and further eval by PCP within a week time. Rx Instructions: ,,mon,mon spironolactone 25 mg Tablet 25 mg PO 3XWK Hold Instructions: Resume on 06/13/23. Hold until repeat labs and further eval by PCP within a week time. Rx Instructions: monday,monday,monday omeprazole 20 mg Capsule,Delayed Release(Dr/Ec) 20 mg PO QAM glipizide 5 mg Tablet 5 mg PO QAM metoprolol tartrate 25 mg Tablet 12.5 mg PO BID Anoro Ellipta 62.5-25 mcg/actuation Blister With Device 1 inh INHALATION DAILY Arnuity Ellipta 200 mcg/actuation Blister With Device 1 inh INHALATION HS torsemide 10 mg tablet 10 mg PO QAM torsemide 10 mg tablet 10 mg PO 3XWK Rx Instructions: take 10 mg in afternoon on MON,MON,MON in additon to am dose cholecalciferol (vitamin D3) [Vitamin D3] 25 mcg (1,000 unit) Tablet 25 mcg PO HS calcium carbonate-vitamin D3 600 mg-25 mcg (1,000 unit) Capsule 1 cap PO DAILY ascorbic acid (vitamin C) [Vitamin C] 1,000 mg Tablet 1 g PO DAILY doxycycline hyclate 100 mg capsule 100 mg PO BID Rx Instructions: STARTED 07/25/23 FOR 10 DAYS mirtazapine 7.5 mg tablet 7.5 mg PO HS Referrals Referrals: Sandra Rasheed MD [Primary Care Provider] -
--- NOTE | 2023-07-31 16:23 | XRay Report ---
SINGLE VIEW CHEST CLINICAL HISTORY: Dyspnea FINDINGS: An AP, portable, upright chest radiograph is compared to study dated 05/31/2023. Correlation is made with chest CT dated 02/12/2020. The heart is mild enlarged noting atherosclerotic calcificat ion of the thoracic aorta. There is mild pulmonary vascular congestion. Emphysema and chronic interst itial thickening is similar to previous. There is bibasilar scarring/atelectasis. No airspace consoli dation or large pleural effusion is identified. No pneumothorax is seen. The skeletal structures are osteopenic. The bony thorax is grossly intact. Arthritic change is seen in the shoulders and spine. IMPRESSION: 1. Cardiomegaly and emphysema with mild pulmonary vascular congestion. 2. No airspace consolidation or large pleural effusion is identified ACT 112: Negative or not required by law. Electronically signed by: Osito Pepper M.D. 07/31/2023 4:22 PM
[2023-07-31 16:27] LABS: Basophils # (auto) 0.04 K/uL (0.00-0.20); Basophils % (auto) 0.4 %; Eosinophils # (auto) 0.07 K/uL (0.00-0.50); Eosinophils % (auto) 0.7 %; Hematocrit (blood only) 45.9 % (37.0-47.0); Hemoglobin 16.6 g/dl (12.0-16.0); Immature Granulocytes # (auto) 0.05 K/uL (0.01-0.20); Immature Granulocytes % (auto) 0.5 %; Lymphocytes # (auto) 2.84 K/uL (1.20-3.40); Lymphocytes % (auto) 29.3 %; Mean Corpuscular Hgb Conc 36.2 g/dL (32.0-36.0); Mean Corpuscular Volume 85.6 fL (80.0-100.0); Mean Platelet Volume 9.9 fL (9.4-12.4); Monocytes # (auto) 0.64 K/uL (0.11-0.59); Monocytes % (auto) 6.6 %; Neutrophils # (auto) 6.06 K/uL (1.40-6.50); Neutrophils % (auto) 62.5 %; Platelet Count 234 K/uL (130-400); RDW Coefficient of Variation 13.5 % (11.5-14.5); RDW Standard Deviation 41.9 fL (36.4-46.3); Red Blood Count 5.36 M/uL (4.20-5.40)
[2023-07-31 16:51] LABS: Albumin Globulin Ratio 1.7 (0.9-2); Albumin Level 4.2 gm/dl (3.4-5.0); BUN Creatinine Ratio 22.7 (10-20); Bilirubin,Total 0.9 mg/dl (0.2-1.0); Calcium 9.5 mg/dl (8.6-10.3); Creatinine Clr Calc Pharmacy 36.6 ml/min; Est GFR (African American) 41.8 ml/min; Est GFR (Non-African American) 36.1 ml/min; Globulin 2.5 gm/dl (2.5-4.0); Magnesium 1.3 mg/dl (1.7-2.4); Potassium 3.6 mmol/L (3.5-5.1); Total Protein 6.7 gm/dl (6.0-8.3)
[2023-07-31 16:55] LABS: Troponin I High Sensitivity 8.9 pg/ml (0-14)
[2023-07-31 17:09] LABS: Prothrombin Time 11.1 Seconds (9.0-12.0)
--- NOTE | 2023-07-31 17:12 | Electrocardiogram Report ---
Test Reason : Blood Pressure : / mmHG Vent. Rate : 075 BPM Atrial Rate : 234 BPM P-R Int : 000 ms QRS Dur : 078 ms QT Int : 374 ms P-R-T Axes : 081 017 062 degrees QTc Int : 417 ms Sinus rhythm When compared with ECG of 01-JUN-2023 03:14, QT has shortened Confirmed by Mulugeta Rosa ([id number]) on 07/31/2023 5:12:06 PM Referred By: Confirmed By:Abner Rosa
[2023-07-31 17:18] LABS: Base Excess VBG -0.5 mEq/L; HCO3 VBG 26 mmol/L; Oxygen Saturation VBG < 60.0 %; PCO2 VBG 51 mmHg (38-50); PO2 VBG < 20 mmHg; pH VBG 7.32 (7.36-7.41)
[2023-07-31 17:20] LABS: Adenovirus PCR Not Detected (NotDetected); Bordetella parapertussis PCR Not Detected (NotDetected); Bordetella pertussis PCR Not Detected (NotDetected); Chlamydia pneumoniae PCR Not Detected (NotDetected); Coronavirus 229E PCR Not Detected (NotDetected); Coronavirus CoV-2 (COVID19)PCR Not Detected (NotDetected); Coronavirus HKU1 PCR Not Detected (NotDetected); Coronavirus NL63 PCR Not Detected (NotDetected); Coronavirus OC43PCR Not Detected (NotDetected); Human Metapneumovirus PCR Not Detected (NotDetected); Influenza A PCR Not Detected (NotDetected); Influenza B PCR Not Detected (NotDetected); Mycoplasma pneumoniae PCR Not Detected (NotDetected); Parainfluenza Virus 1 PCR Not Detected (NotDetected); Parainfluenza Virus 2 PCR Not Detected (NotDetected); Parainfluenza Virus 3 PCR DETECTED (NotDetected); Parainfluenza Virus 4 PCR Not Detected (NotDetected); Respiratory Syncytial VirusPCR Not Detected (NotDetected); Rhinovirus/Enterovirus PCR Not Detected (NotDetected)
[2023-07-31] MEDS: MAGNESIUM SULFATE / D5W 1 GM/100 ML BAG IV STA (17:38)
[2023-07-31] MEDS: ALBUT/IPRATROP 3MG/0.5MG NEB 3 ML VIAL NEB STA (17:38)
[2023-07-31] MEDS ORDERED: ONDANSETRON INJ 2 MG/ML 2 ML VIAL IV PRN (17:56)
[2023-07-31] MEDS ORDERED: MAGNESIUM HYDROXIDE SUSP 30 ML UDC PO PRN (17:56)
[2023-07-31] MEDS ORDERED: POLYETHYLENE (MIRALAX) 17 GM PACK PO PRN (17:56)
[2023-07-31] MEDS ORDERED: ALUMINUM/MAGNESIUM SUSP 30 ML UDC PO PRN (17:56)
[2023-07-31] MEDS: MAGNESIUM SULFATE / D5W 1 GM/100 ML BAG IV ONE (18:00)
[2023-07-31 18:37] LABS: Hematocrit (blood only) 45.7 % (37.0-47.0); Hemoglobin 15.8 g/dl (12.0-16.0); Mean Corpuscular Hemoglobin 29.7 pg (25.0-34.0); Mean Corpuscular Hgb Conc 34.6 g/dL (32.0-36.0); Mean Corpuscular Volume 85.9 fL (80.0-100.0); Mean Platelet Volume 9.4 fL (9.4-12.4); Platelet Count 189 K/uL (130-400); RDW Coefficient of Variation 13.3 % (11.5-14.5); RDW Standard Deviation 41.7 fL (36.4-46.3); Red Blood Count 5.32 M/uL (4.20-5.40); White Blood Count 8.99 K/ul (4.8-10.8)
--- NOTE | 2023-07-31 18:41 | History & Physical Report ---
Date of Service July 31, 2023 Assessment & Plan (1) Parainfluenza virus infection: (2) Hypomagnesemia: (3) Acute hypoxic respiratory failure: (4) Chronic diastolic CHF (congestive heart failure): (5) CAD (coronary artery disease): (6) Hypertension: (7) Diabetes mellitus, type 2: Plan 77 year old F that presented to the ED with SOB that reportedly has been worsening over the past few days despite being started on antibiotics as an outpatient. She was started on Doxycycline as an outpatient for treatment of 'pneumonia'. She was also given Prednisone with minimal improvement. She describes the increased weakness and increased tachycardia and palpitations and tachycardia. She describes it being difficult to get a cup of coffee without feeling like she cant catch her breath. She has expressed she has been using her oxygen intermittently at home. Patient was given IV Solu-Medrol plus DuoNeb by EMS. In the ED another DuoNeb was administered. Patient has a past medical history of diastolic CHF, CAD, COPD, history of RSV, HTN, HLD, tobacco use and others. She had a recent inpatient hospitalization 05/30 to 06/06 for entero- /rhinovirus and was hospitalized at the beginning of 2023 for RSV. She reports has been off of her oxygen however has been using it more intermittently lately. She felt more short of breath and called EMS. On arrival her SpO2 was in the upper 80s and was placed on 4 L NC. She also recently completed a prednisone taper pack. No leukocytosis, hypomagnesemia 1.3, BNP slightly elevated 119. Patient will be admitted for further evaluation and management of her acute on chronic respiratory failure in the setting of Parainfluenza 3 and possible volume overload. Will treat with Rocephin plus azithromycin, Solu-Medrol IV TID, nebs 4 times daily plus every 2 as needed, pulmonary toilet with Mucinex, incentive spirometry, and flutter valve. No leukocytosis, hypomag 1.3 replaced with 2 g BNP slightly elevated 119, positive parainfluenza 3. Lasix 40 mg once given in ED on examination. Will hold torsemide and Aldactone for now. Pt with noted ectopy in the room and an ECG was obtained without ischemic changes. Acute on Chronic Diastolic CHF exacerbation: Chronic Given CXR results and clinical exam findings, will administer LAsix 40 mg IV once BNP 119 Reassess in AM Hold Aldactone and Torsemide for now ECG obtained in room due to ectopy on monitor, no ischemic changes noted ECG PRN Parainfluenza 3 virus infection: Acute Recent admission in May + entero/rhinovirus and RSV admission in March 2023. No leukocytosis Chest x-ray:Cardiomegaly and emphysema with mild pulmonary vascular congestion. Procalcitonin ordered and pending IV Solu-Medrol and DuoNeb given via EMS Ceftriaxone plus azithromycin started in ED; continue and adjust based on sputum culture and blood culture results Solu-Medrol IV 3 times daily Nebs 4 times daily plus every 2 as needed Droplet precautions Sputum culture Pulmonary toilet with Mucinex, incentive spirometry, and flutter valve Hypomagnesemia: Acute Serum Mg+ 1.3; given 1G in ED and ordered one additional gram. Recheck in AM Ectopy on monitor noted, but ECG without ischemic changes COPD: Chronic Takes Anoro Ellipta; continue Intermittently wears oxygen DM2: Chronic Last A1C 05/13 6.8; recheck in AM Takes Glipizide; hold while inpatient and place on SSI achs HTN: Chronic Takes Losartan and Metoprolol; continue CAD: Chronic Non-obstructive No chest pain but does feel palpitations Takes ASA; continue Disposition: PCP: Code Status: Conditional VTE Prophylaxis: Lovenox SQ I spent a total of 82 minutes coordinating, documenting, and providing care for this patient excluding time spent in the performance of separately billed services. All of the aforementioned completed while collaborating with the assigned attending physician for a full treatment plan. Please see their addendum for further details. History of Present Illness Chief Complaint: SOB Primary Care Provider: Sandra Rasheed MD Pt is a 77 year old that presented to the ED with SOB that reportedly has been worsening over the past few days despite being started on antibiotics as an outpatient. She was started on Doxycycline as an outpatient for treatment of 'pneumonia'. She was also given Prednisone with minimal improvement. She describes the increased weakness and increased tachycardia and palpitations and tachycardia. She describes it being difficult to get a cup of coffee without feeling like she cant catch her breath. She has expressed she has been using her oxygen intermittently at home. Patient was given IV Solu-Medrol plus DuoNeb by EMS. In the ED another DuoNeb was administered. Patient has a past medical history of diastolic CHF, CAD, COPD, history of RSV, HTN, HLD, tobacco use and others. She had a recent inpatient hospitalization 05/30 to 06/06 for entero-/rhinovirus and was hospitalized at the beginning of 2023 for RSV. She reports has been off of her oxygen however has been using it more intermittently lately. She felt more short of breath and called EMS. On arrival her SpO2 was in the upper 80s and was placed on 4 L NC. She also recently completed a prednisone taper pack. Currently she denies chest pain and palpitations. Denies headache, dizziness, lightheadedness, abdominal pain or tenderness, N/V/D, dysuria, hematochezia. Patient is receptive to BiPap or Hi-Flow if necessary. Would like to avoid intubation. Pt is a conditional code. Patient will be admitted for further evaluation and management of her acute on chronic respiratory failure in the setting of Parainfluenza 3 and possible volume overload. Will empirically treat with Rocephin plus azithromycin, Solu- Medrol IV 3 times daily, nebs 4 times daily plus every 2 as needed, pulmonary toilet with Mucinex, incentive spirometry, and flutter valve. No leukocytosis, hypomag 1.3 replaced with 2 g BNP slightly elevated 119, positive parainfluenza 3. Lasix 40 mg once given in ED on examination. Will hold torsemide and Aldactone for now. Allergies Allergy/AdvReac Type Severity Reaction Status Date / Time Iodinated Contrast Media Allergy Severe Hives--48 Verified 07/31/23 17:46 HRS AFTER HEART CATH PROCEDURE Sulfa (Sulfonamide Allergy Unknown Pt doesn't Verified 07/31/23 17:46 Antibiotics) remember Influenza Virus Vaccines AdvReac Intermediate FLU-LIKE Verified 07/31/23 17:46 SYMPTOMS Home Medications Medication Instructions Recorded Confirmed Type aspirin 81 mg tablet,delayed 81 mg PO QAM 07/04/22 07/31/23 History release atorvastatin 40 mg tablet 40 mg PO HS 07/04/22 07/31/23 History fluticasone furoate 200 1 inh inhalation HS 07/04/22 07/31/23 History mcg/actuation blister powder for inhalation (Arnuity Ellipta) glipizide 5 mg tablet 5 mg PO QAM 07/04/22 07/31/23 History losartan 50 mg tablet 50 mg PO QAM 07/04/22 07/31/23 History metoprolol tartrate 25 mg tablet 12.5 mg PO BID 07/04/22 07/31/23 History omeprazole 20 mg capsule,delayed 20 mg PO QAM 07/04/22 07/31/23 History release spironolactone 25 mg tablet 12.5 mg PO 4XWK 07/04/22 07/31/23 History spironolactone 25 mg tablet 25 mg PO 3XWK 07/04/22 07/31/23 History umeclidinium 62.5 mcg-vilanterol 1 inh inhalation DAILY 07/04/22 07/31/23 History 25 mcg/actuation powdr for inhalation (Anoro Ellipta) calcium carbonate 600 mg-vitamin 1 cap PO DAILY 12/08/22 07/31/23 History D3 25 mcg (1,000 unit) capsule cholecalciferol (vitamin D3) 25 25 mcg PO HS 12/08/22 07/31/23 History mcg (1,000 unit) tablet (Vitamin D3) torsemide 10 mg tablet 10 mg PO 3XWK 12/08/22 07/31/23 History torsemide 10 mg tablet 10 mg PO QAM 12/08/22 07/31/23 History ascorbic acid (vitamin C) 1,000 mg 1 g PO DAILY 07/31/23 07/31/23 History tablet (Vitamin C) doxycycline hyclate 100 mg capsule 100 mg PO BID 07/31/23 07/31/23 History mirtazapine 7.5 mg tablet 7.5 mg PO HS 07/31/23 07/31/23 History Past Med/Surg History Problem List Parainfluenza virus infection (Acute) Hypomagnesemia (Acute) Hypoxia (Acute) Acute dyspnea (Acute) Hypomagnesemia (Acute) Elevated troponin (Acute) Rhinovirus infection (Acute) SOB (shortness of breath) (Acute) Pneumonia (Acute) COPD exacerbation (Acute) Hypoxia (Acute) Enterovirus infection Pneumonia Back pain Chronic diastolic CHF (congestive heart failure) Acute hypoxic respiratory failure COPD exacerbation Hypertension Diabetes mellitus, type 2 NIDDM CAD (coronary artery disease) Medical History Chronic diastolic CHF (congestive heart failure) CAD (coronary artery disease) Osteoarthritis CKD (chronic kidney disease) DJD (degenerative joint disease) Neuropathy Tachycardia reason colon/EGD being done at hospital per pt, Metoprolol was added for this Diabetes mellitus, type 2 NIDDM GERD (gastroesophageal reflux disease) Hypertension Hyperlipidemia History of COVID-05 October 2021 > not hospitalized Sleep apnea cpap Chronic obstructive pulmonary disease rare res inh use Surgical History History of tonsillectomy Hx of lumpectomy benign > right History of surgery on wrist right History of repair of rotator cuff right History of hysterectomy History of bladder surgery bladder tack History of esophagogastroduodenoscopy (EGD) History of colonoscopy History of herniorrhaphy History of cholecystectomy History of appendectomy History of tooth extraction History of cardiac cath [place] approx 5 yrs ago per pt, no stents Family History Mother Diabetes Grandmother (Maternal) Diabetes Social History Smoking Status: Former smoker Tobacco Type: Cigarettes Cigarettes Per Day: less than 1/2 ppd; Second Hand Exposure: No; Do You Dip or Chew Tobacco: No; Hx Alcohol Use: Yes Alcohol type: wine Hx Substance Use: No Preferred Language: Swedish Communication Ability: Effective Storage Garage Attendant Required: No Beliefs That Will Affect Care: None Current Living Situation: Alone Feels Safe at Home: Yes Assistive Devices: Oxygen - Continuous Review of Systems Review of Systems: Neuro: (-) Falls, trauma, slurred speech HEENT: (-) FAUSTIN, dizziness, dysphagia, visual or auditory changes CV: (-) CP, palpitations, swelling Resp: (+) SOB GI: (-) appetite changes, N/V/D, bowel changes : (-) urinary changes Skin: (-) rashes Psych: (-) anxiety, depression Physical Exam Physical Exam: Se Dr. Bowman attestation for physical examination findings Results & Data Results & Data Vital Signs (Past 12 Hours) Vital Signs Temp Pulse Pulse Resp BP BP Pulse Ox 07/31/23 16:54 72 30 H 170/72 H 97 07/31/23 16:27 71 07/31/23 16:10 94 07/31/23 15:55 36.5 C 81 27 H 165/76 H 88 L O2 Del Method O2 Flow Rate 07/31/23 16:54 Nasal Cannula 3 07/31/23 16:27 07/31/23 16:10 Nasal Cannula 4 07/31/23 15:55 Room Air Laboratory Results Short CBC 07/31/23 07/31/23 Range/Units 16:09 18:22 WBC 9.70 8.99 (4.8-10.8) K/ul Hgb 16.6 H 15.8 (12.0-16.0) g/dl Hct 45.9 45.7 (37.0-47.0) % Plt Count 234 189 (130-400) K/uL BMP 07/31/23 16:09 Sodium 132 L Potassium 3.6 Chloride 98 Carbon Dioxide 25 BUN 32 H Creatinine 1.41 H Glucose 179 H Calcium 9.5 Liver Function 07/31/23 Range/Units 16:09 Total Bilirubin 0.9 (0.2-1.0) mg/dl AST 17 (13-39) U/L ALT 20 (7-52) U/L Alkaline Phosphatase 107 H (34-104) U/L Albumin 4.2 (3.4-5.0) gm/dl Diagnostic Findings Chest X-Ray 07/31/23 16:02 SINGLE VIEW CHEST CLINICAL HISTORY: Dyspnea FINDINGS: An AP, portable, upright chest radiograph is compared to study dated 05/31/2023. Correlation is made with chest CT dated 02/12/2020. The heart is mild enlarged noting atherosclerotic calcification of the thoracic aorta. There is mild pulmonary vascular congestion. Emphysema and chronic interstitial thickening is similar to previous. There is bibasilar scarring/atelectasis. No airspace consolidation or large pleural effusion is identified. No pneumothorax is seen. The skeletal structures are osteopenic. The bony thorax is grossly intact. Arthritic change is seen in the shoulders and spine. IMPRESSION: 1. Cardiomegaly and emphysema with mild pulmonary vascular congestion. 2. No airspace consolidation or large pleural effusion is identified ACT 112: Negative or not required by law. Electronically signed by: Osito Pepper M.D. 07/31/2023 4:22 PM Code Status & VTE Plan Code Status Conditional code VTE Prophylaxis Plan VTE Prophylaxis will be ordered: Yes Supervising Physician Co-Signing Physician Notes I have seen and discussed the case with the collaborating advanced practitioner. I agree with the above H&P. I have reviewed and confirmed the patients medical history, the findings on physical examination, and the patients diagnosis and treatment plan with Taylor QUESADA and agree with the information documented. In short, Ms. Moser is a 77 year old woman with history of COPD with multiple admissions for exacerbations who is admitted for acute COPD exacerbation iso parainfluenza virus Patient with history ofRSV and entero/rhino virus since 03/2023. Patient reports notable CA. Patient also with conversational dyspnea. Reports cough with occasional "burgos" sputum production. Denies fevers. Reports ongoing palpi tations. Minimal imporvemnt with po steriods and abx. completed 5 day course steroids and 6 days doxy. GENERAL APPEARANCE: AxOx4, mild distress, conversational dyspnea HEENT: NC, AT. MMM. EOMI, clear conjunctiva, oropharynx clear. NECK: Supple without lymphadenopathy HEART: Normal rate and regular rhythm, normal S1/S1, no m/r/g LUNGS: diffuse rhonchi noted, crackles in bibasilar bases, chest sounds tight, forceful expiration ABDOMEN: Soft, nontender, nondistended with good bowel sounds heard. BACK: No CVAT, no obvious deformity. EXTREMITIES: Without cyanosis, clubbing or edema. NEUROLOGICAL: Grossly nonfocal. Alert and oriented, moving all 4 extremities. CN not formally tested but appear grossly intact. Skin: Warm and dry without any rash. : #Acute COPD exacerbation #Parainfluenza virus mucinex bid home inhalers IV methyl pred q8 CTA ordered when able to tolerate CTX and Azithro nebs QID #Acute on chronic HFpEF home torsemide 10mg, 20mg MWF congestion on CXR/ crackles, BNP ~119 -IV lasix 20mg x 1 Reassess rest of plan as above I spent a total of 35 minutes coordinating, documenting, and providing care for this patient excluding time spent in the performance of separately billed services. All of the aforementioned completed outside of collaborating with the assigned advanced practitioner for a full treatment plan. I have reviewed the advanced practitioner's documentation, and I agree with, and take responsibility for the plan of care
[2023-07-31] MEDS: LABETALOL HCL IV 5 MG/ML 20ML IV STA (18:45)
[2023-07-31] MEDS ORDERED: GLUCOSE 10 TAB/TUBE PO PRN (19:37)
[2023-07-31] MEDS ORDERED: PHARMACY GLYCEMIC MGMT CONSULT PRN (19:37)
[2023-07-31] MEDS ORDERED: GLUCOSE 40% GEL 15 GM TUBE PO PRN (19:37)
[2023-07-31] MEDS ORDERED: GLUCAGON FOR INJ 1 MG VIAL SQ PRN (19:37)
[2023-07-31] MEDS ORDERED: DEXTROSE 50% 50 ML SYRINGE IV PRN (19:37)
[2023-07-31] MEDS ORDERED: CARBOHYDRATES FOR HYPOGLYCEMIA PO PRN (19:37)
[2023-07-31] MEDS: ACETAMINOPHEN 325 MG TAB PO PRN (20:15)
[2023-07-31] MEDS: INSULIN ASPART PER UNIT CHARGE SC SCH (20:36)
[2023-07-31] MEDS: ALBUT/IPRATROP 3MG/0.5MG NEB 3 ML VIAL NEB SCH (20:40)
[2023-07-31] MEDS: AZITHROMYCIN 500 MG in DEXTROSE 5% 250 ML IV SCH (21:04)
[2023-07-31] MEDS: ATORVASTATIN 40 MG TAB PO SCH (21:04)
[2023-07-31] MEDS: guaiFENesin 600 MG TABCR PO SCH (21:04)
[2023-07-31] MEDS: methylPREDNISolone 40 MG in SYRINGE 0 ML IV SCH (21:04)
[2023-07-31] MEDS: METOPROLOL TARTRATE 25 MG TAB PO SCH (21:05)
[2023-07-31] MEDS: MIRTAZAPINE TAB 15 MG TAB PO SCH (21:05)
[2023-07-31] MEDS: FLUTICASONE FUROATE 200MCG 14 PUFFS/INHALER INH SCH (21:06)
[2023-07-31] MEDS: LANTUS PER UNIT CHARGE SQ SCH (21:42)
[2023-07-31] MEDS: NICOTINE 14 MG/24 HR PATCH TD SCH (22:00)
[2023-07-31] MEDS: FUROSEMIDE INJ 20 MG/2 ML VIAL IV ONE (23:08)
[2023-07-31] MEDS: BUMETANIDE 0.5 MG in SYRINGE 0 ML IV ONE (23:23)
[2023-08-01] MEDS: cefTRIAXone SODIUM 2,000 MG/50 ML BAG IV SCH (00:37)
[2023-08-01] MEDS: ENOXAPARIN INJ 40 MG/0.4 ML SYR SQ SCH (00:38)
[2023-08-01 07:14] LABS: Prothrombin Time 11.3 Seconds (9.0-12.0)
[2023-08-01 07:32] LABS: Estimated Average Glucose 154 mg/dl
[2023-08-01 07:34] LABS: Appearance Urine Clear (Clear); Bilirubin Urine Negative (Negative); Blood Urine Negative (Negative); Color Urine Yellow; Glucose Urine UA 2+ (Negative); Ketones Urine Negative (Negative); Leukocyte Esterase Urine Negative (Negative); Nitrite Urine Negative (Negative); Protein Urine Negative (Negative); Specific Gravity Urine 1.009 (1.000-1.030); Urobilinogen Urine Negative (Negative); pH Urine 5.5 (4.5-7.5)
[2023-08-01] MEDS: UMECLIDINIUM/VILANTEROL 62.5/25MCG 7 PUFFS/INHALER INH SCH (07:43)
[2023-08-01] MEDS: ASPIRIN 81 MG ECTAB PO SCH (07:44)
[2023-08-01] MEDS: PANTOprazole 40 MG TAB PO SCH (07:44)
[2023-08-01] MEDS: LOSARTAN POTASSIUM 50 MG TAB PO SCH (07:44)
[2023-08-01 08:06] LABS: BUN Creatinine Ratio 25.9 (10-20); Calcium 9.2 mg/dl (8.6-10.3); Creatinine Clr Calc Pharmacy 36.4 ml/min; Est GFR (African American) 42.6 ml/min; Est GFR (Non-African American) 36.7 ml/min; Potassium 4.2 mmol/L (3.5-5.1)
[2023-08-01] MEDS: TORSEMIDE 10 MG TAB PO SCH (09:06)
[2023-08-01] MEDS: SPIRONOLACTONE 12.5 MG TAB PO SCH (09:06)
--- OUTSIDE RECORDS SUMMARY | 2023-08-01 09:43 | External Medical Summary | Summary of Care ---
Author Name Unknown Organization [facility] Address [address] [place] [address] Phone [phone] Care Team Providers Care Ethnology Teacher Name Role Phone Sandra Rasheed MD Primary Care Provide r Encounter Details Date Type Department Care Team (Late st Contact Info) Description 07/26/2023 Telephone Family Medicine [address] [phone] Sandra Rasheed MD [address] [place] [address] [place] [address] Allergies Active Allergy Reactions Criticality Noted Date Comments Influenza Vaccines 01/06/2015 Had flu symptoms x 1 month after injection Iodinated Contrast Media High 09/01/2016 Hives 48 hours post cardiac cath. No respiratory symptoms Sulfa Antibiotics Unknown 02/22/2013 documented as of this encounter (statuses as of 07/27/2023) Medications Medication Sig Dispensed Refills Start Date End Date Status ASPIRIN 81 MG PO TABS Take by mouth at bedtime. 0 Active Cholecalciferol 1000 UNITS Capsule Take 1 Capsule by mouth at bedtime. 30 Cap 3 09/09/2016 Active CPAP every night at bedtime. 0 Active Vitamin C 1000 MG Oral Tablet Take 1 Tablet by mouth in the morning. 1 tab daily in the winter. 0 Active Calcium Carb-Cholecalciferol 600-1000 MG-UNIT Oral Capsule Take 1 Capsule by mouth daily. 0 Active Metoprolol Tartrate 25 MG Oral Tablet (Lopressor)Indicatio ns:Hypertensive kidney disease with stage 3b chronic kidney disease (HCC),Hypertension with goal blood pressure less than 140/80 TAKE ONE-HALF TABLET BY MOUTH TWICE A DAY. 90 Tablet 3 09/09/2022 4 Active Albuterol Sulfate HFA 108 (90 [...] WEEK 64 Tablet 3 12/19/2022 4 Active Additional Information Patient taking differently: On hold until 06/13/23, then take 1 tab on Mon-Mon-Mon, and 1/2 tab on Iwt-Zvjf-Cpwny-Mon., Informant: At Discharge, Reported on 06/08/2023 Atorvastatin Calcium 40 MG Oral Tablet (Lipitor)Indications :Dyslipidemia, goal LDL below 130,Hypertension goal BP (blood pressure) < 150/90 Take 1 Tablet by mouth every day 90 Tablet 3 12/26/2022 4 Active Omeprazole 20 MG Oral Capsule Delayed Release (PriLOSEC)Indication s:Hypertension goal BP (blood pressure) < 150/90 Take 1 Capsule by mouth in the morning. 90 Capsule 3 12/26/2022 4 Active OneTouch Delica Plus [id number] :Type 2 diabetes mellitus with hemoglobin A1c goal of less than 8.0% ([facility]) Use to test blood sugar up to twice daily. Dx E11.9 200 Each 3 01/11/2023 Active OneTouch Verio In Vitro Strip (Glucose Blood)Indications:Ty pe 2 diabetes mellitus with hemoglobin A1c goal of less than 8.0% ([facility]) USE TO TEST BLOOD SUGAR UP TO TWICE DAILY 200 Strip 2 02/22/2023 5 Active Nebulizer/Tubing/Sindy thpiece KitIndications:COPD, group D, by GOLD 2017 classification ([facility]) Replacement requested as hers isn't delivering medicine well and is old. DME: [facility] 1 Kit 0 02/22/2023 Active Anoro Ellipta 62.5-25 MCG/ACT Inhalation Aerosol Powder Breath Activated (umeclidinium-vilant jyoti) Inhale 1 dose by mouth every morning. 180 Each 3 02/22/2023 Active Arnuity Ellipta 200 MCG/ACT Inhalation Aerosol Powder Breath Activated (fluticasone Furoate)Indications: COPD, group D, by GOLD 2017 classification ([facility]) 1 dose inhaled every evening. Rinse mouth after use. 90 Each 3 02/22/2023 Active Torsemide 10 MG Oral Tablet (Demadex)Indications :Hypertension with goal blood pressure less than 140/80,Localized edema TAKE ONE TABLET BY MOUTH ONCE DAILY TAKE ONE ADDITIONAL TABLET BY MOUTH IN THE AFTERNOON ON MONDAY, MONDAY AND MONDAY 135 Tablet 1 05/05/2023 Active glipiZIDE ER 5 MG Oral Tablet Extended Release 24 Hour (Glucotrol XL)Indications:Type 2 diabetes mellitus with hemoglobin A1c goal of less than 8.0% ([facility]) TAKE ONE TABLET BY MOUTH EVERY MORNING 100 Tablet 1 05/17/2023 5 Active oxygen IN GAS 1 LPM bled through autoCPAP 10-20 cm H2O 1 Each 0 06/07/2023 Active Additional Information Patient taking differently: 2 L/min(Oxygen) Nasal, 1 LPM bled through autoCPAP 10-20 cm H2O, 2LPM with exertion, 1 LPM at rest as needed, Reported on 06/08/2023 Mirtazapine 7.5 MG Oral Tablet (Remeron) Take 1 Tablet by mouth at bedtime. 90 Tablet 0 07/05/2023 Active predniSONE 20 MG Oral Tablet (Deltasone)Indicatio ns:Acute cough Take 2 Tablets by mouth in the morning for 5 days. 10 Tablet 0 07/25/2023 4 Active Doxycycline Hyclate 100 MG Oral CapsuleIndications:A cute cough Take 1 Capsule by mouth in the morning and 1 Capsule before bedtime. Do all this for 10 days. Until gone.. 20 Capsule 0 07/25/2023 4 Active documented as of this encounter (statuses as of 07/27/2023) Active Problems Problem Noted Date Diagnosed Date History of respiratory syncytial virus (RSV) inf ection 05/31/2023 Respiratory distress 05/31/2023 Right flank pain 05/31/2023 Chronic diastolic congestive heart failure 05/02 Type 2 diabetes mellitus wit h diabetic neuropathy, without long-term current use of insulin 05/02/2023 Immunization not carried out because of patient decision 07/26/2022 Type 2 diabetes mellitus wit h stage 3b chronic kidney disease, without long-term current use of insulin 04/26/2022 Hypertensive heart and kidne y disease with chronic diastolic congestive heart failure and stage 3b chronic kidney disease 04/26/2022 Pulmonary [...] as of this encounter (statuses as of 07/27/2023) Resolved Problems Problem Noted Date Diagnosed Date Resolved Date Hypertensive heart and kidne y disease with chronic diastolic congestive heart failure and stage 3a chronic kidney disease 06/20/2023 04/0 04/2023 Acute respiratory failure with hypoxia 05/31/2023 06/14/2023 Chronic kidney disease, stage 3b 09/01/2020 04/26/2022 [...] Localized edema 07/25/2016 03/05/2019 COPD exacerbation 01/22/2016 06/14/2023 Vitreous hemorrhage 05/25/2015 10/11/19 18 Retinal edema [...] as of this encounter (statuses as of 07/27/2023) Immunizations Name Administration Dates Next Due HEP [...] Day Cigarettes 2 58 Smokeless Tobacco: Never Comments:06/07/23 currently smoking 8-10 cig/day Alcohol Use Standard Drinks/Week Comments Yes 0 (1 standard drink = 0.6 oz pur e alcohol) rare wine PHQ-2 Answer Date Recorded PHQ Adult Total Score 0 06/08/2023 Hunger Vital Sign Answer Date Recorded Within the past 12 months, y ou worried that your food would run out before you got the money to buy more. Never true 06/13/19 24 Within the past 12 months, t he food you bought just didn't last and you didn't have money to get more. Never true 06/13/2023 Sex and Gender Information Value Date Recorded Sex Assigned at Female 07/21/2020 3:22 PM EDT Gender Identity Female 07/21/2020 3:22 PM EDT Sexual Orientation Straight 07/21/2020 3: 22 PM EDT Job Start Date Occupation Industry Not on file Not on file Not on file documented as of this encounter Miscellaneous Notes * Telephone Encounter - Adeel Huff OSA - 07/27/2023 12:52 PM EDT Patient has been called and is aware of the appt scheduled on: Monday Arrive by 9:45 AM Appt at 10:00 AM (30 min) * Telephone Encounter - Cha Mcclendon RN - 07/26/2023 4:28 PM EDT No patient is not aware she was looking for something sooner if possible * Telephone Encounter - Adeel Huff OSA - 07/26/2023 2:58 PM EDT Patient is already scheduled for a November appt with Dr. Sykes. Is she aware of this, Dr. Sykes has limited times and dates at the moment. 12/18/23 at 4 pm. * Telephone Encounter - Cha Mcclendon RN - 07/26/2023 2:49 PM EDT Patient called states she is not feeling well, covid test neg patient waiting on CXR results. Patient is not going to make appointment with Cardiology for tomorrow. Per epic looks like appointment was canceled by provider. Patient would like to reschedule with Dr. Sykes , for a Wed appointment if possible. Please call patient with new appointment. documented in this encounter Plan of Treatment Upcoming Encounters Date Type Department Care Team (Late st Contact Info) Description 07/31/2023 1:30 PM EDT Nurse Only Ancillary [address] [place] [id number] Hank, Nurse [address] [place] [address] 09/08/2023 1:00 PM EDT Office Visit Gastroenterology [address] [place] [address] Jelly Mills CRNP [address] [place] [address] 09/13/2023 11:15 AM EDT Office Visit Ophthalmology, [facility] [address] [place] [address] Mulugeta Hodges DO [address] [place] [address] 09/27/2023 12:00 PM EDT Office Visit Pulmonary Medicine, [facility] [address] [facility] [place] [address] Nir Ward MD [address] [facility] [place] [address] 10/11/2023 10:00 AM EDT Office Visit Cardiology, [facility] [address] [facility] [place] [address] Antonio Oscar MD [address] [facility] [place] [address] 10/31/2023 3:00 PM EDT Office Visit Family Medicine [address] [place] [phone] Susy Ochoa PA-C [address] [place] [address] [place] [address] 02/28/2024 11:00 AM EST Imaging Radiology [address] [facility] [place] [address] 05/07/2024 4:00 PM EST Office Visit Family Medicine [address] [place] [phone] Sandra Rasheed MD [address] [place] [address] [place] [address] 05/17/2024 12:00 PM EST Office Visit [facility] [address] [facility] [place] [phone] Aminata Quiroz CRNP [address] [place] [address] Scheduled Procedures Name Priority Associated Diagnoses Date/Ti me COLONOSCOPY FLEXIBLE PROXIMAL DIAGNOSTIC Recall History of colon polyps Health Maintenance Due Date Last Done Comments Zoster Vaccines (1 of 2) 1996 *ADVANCE DIRECTIVE NOT ON FILE 09/01/2018 DISCUSS TOBACCO CESSATION (REFER TO SMARTSET #3839) 12/02/2021 12/02/2020 COVID-19 Vaccine ( season) 2022 DXA Scan 07/24/2023 07/23/2020, 07/20, 03/25/2013 HbA1c 10/31/2023 05/02/2023, 10/18, 04/26/2022, Additional history exists Influenza Vaccine (FLU shot) (Season Ended) 2023 12/03/2013 GFR 12/20/2023 06/20/2023, 04/20, 05/02/2023, Additional history exists CKD PHOS USE SMARTSET 35036 03/27/2024 01/0 10/2023, 04/26/2022, 04/21/2021, Additional history exists Albumin/Creatinine Ratio 05/02/2024 024, 04/26/2022, 08/10/2020, Additional history exists Diabetic Foot Exam 05/02/2024 05/02/2023, 0 04/26/2022, 07/22/2021, Additional history exists Diabetic Eye Exam 05/10/2024 05/10/2023, , 08/10/2022, Additional history exists Depression Screening 06/07/2024 06/08/2023 CKD HGB USE SMARTSET 15531 06/19/202406/19, 06/20/2023, 05/05/2023, Additional history exists O2 ASSESSMENT COMPLETED IN PAST YEAR FOR COPD 07/24/2024 07/25/2023 Colonoscopy 07/13/2025 07/13/2022, 06/19, 07/13/2022, Additional history exists DTaP,Tdap,and Td Vaccines [...] this encounter Medical Devices Implanted Type Area Manager Floor Device Identifier Shelf Expiration Date Model / Serial / Lot [employer]necare Tvt Device Implanted:Qty: 1 on 06/18/2013 at OR [facility] N/A: Bladder 02/17/2016 [id number] / / [id number] documented as of this encounter Advance Directives Healthcare Agents on File Name Relationship Healthcare Agent Relationship Communication PIERRE Espinoza Other - (no specific identity) Health Care Table Assembler (appointed verbally by patient or by statute hierarchy) Care Teams Ethnology Teacher Relationship Specialty Start Date End Date Sandra Rasheed MD [address] [place] [address] [place] [address] PCP - General Family Medicine 06/05/15 documented as of this encounter
--- OUTSIDE RECORDS SUMMARY | 2023-08-01 09:44 | External Medical Summary ---
Author Name Unknown Address Unknown Organization [id number]:[facility] [place] - [address] [facility] [address] Laboratory Report Ordering Provider Test Date Status PARMJIT BRITTON 07/25/2023 13:28:31 Final For PreSurgery, Procedure, O B Admit, or Surveillance testing - Nasal Turbinate source preferred.

For Symptomatic testing - Nasopharyngeal source preferred.
null Observation Date Value Abnormality Reference (Units ) Status SARS Coronavirus 2 07/25/2023 13:28:31 Negative N egative Final 2018 Novel Coronavirus not d etected.

This express test was developed and its performance characteristics determined by [facility]. It has not been cleared or approved [...] SARS-CoV-2 diagnosis, surveillance, and travel within the [place] and to most countries. Please check with local testing authorities about requirements before travel.

The validation of bronchial specimens, tracheal aspirates, and sputum for this assay was developed and performance characteristics determined by [facility]. The validation of alternate specimen types has not been cleared or approved by the U.S. Food and Drug Administration (FDA). It has been determined that such clearance is not necessary. Performing Location [facility] [place] - [address] [facility] [address]
--- OUTSIDE RECORDS SUMMARY | 2023-08-01 09:44 | External Medical Summary | Summary of Care ---
Author Name Unknown Organization [facility] Address [address] [place] [address] Phone [phone] Care Team Providers Care Motorman/Woman Name Role Phone Sandra Rasheed MD Primary Care Provide r Reason for Referral * Medication Prior Authorization - Closed Specialty Diagnoses / Procedures Referred By Contac t Referred To Contact Diagnoses Acute cough Susy Ochoa PA-C [address] [place] [address] [place] [address] Referral ID Status Reason Start Date Expiration Date Visits Re quested Visits Authorized [id number] Closed [phone] Reason for Visit * Reason Comments Acute Encounter Details Date Type Department Care Team (Late st Contact Info) Description 07/25/2023 1:20 PM EDT Office Visit Family Medicine [address] [place] [phone] Susy Ochoa PA-C [address] [place] [address] [place] [address] Acute cough* Allergies Active Allergy Reactions Criticality Noted Date Comments Influenza Vaccines 01/06/2015 Had flu symptoms x 1 month after injection Iodinated Contrast Media High 09/01/2016 Hives 48 hours post cardiac cath. No respiratory symptoms Sulfa Antibiotics Unknown 02/22/2013 documented as of this encounter (statuses as of 07/25/2023) Medications Medication Sig Dispensed Refills Start Date [...] tab on Mon-Mon-Mon, and 1/2 tab on Gcd-Dktg-Xkfza-Sat., Informant: At Discharge, Reported on 06/08/2023 Atorvastatin [...] 3 12/26/2022 4 Active OneTouch Delica Plus [id number] :Type 2 diabetes mellitus with hemoglobin A1c [...] for 5 days. 10 Tablet 0 07/25/2023 Active Doxycycline Hyclate 100 MG Oral CapsuleIndications:A cute cough Take 1 Capsule by mouth in the morning and 1 Capsule before bedtime. Do all this for 10 days. Until gone.. 20 Capsule 0 07/25/2023 Active documented as of this encounter (statuses as of 07/25/2023) Active Problems Problem Noted Date Diagnosed Date [...] nodule 08/14/2019 Coronary artery disease invo lving [place] coronary artery of [place] heart without angina pectoris 08/30/2018 Diabetes mellitus [...] as of this encounter (statuses as of 07/25/2023) Resolved Problems Problem Noted Date Diagnosed Date [...] as of this encounter (statuses as of 07/25/2023) Immunizations Name Administration Dates Next Due HEP [...] Sign Reading Time Taken Comments Blood Pressure 138/64 07/25/2023 1:10 PM EDT Pulse 70 07/25/2023 1:10 PM EDT Temperature 36.4 C (97.6 F) 07/25/2023 1:10 PM ED T Respiratory Rate 20 07/25/2023 1:10 PM EDT Oxygen Saturation 91% 07/25/2023 1:10 PM EDT Inhaled Oxygen Concentration - - Weight 81.6 kg (180 lb) 07/25/2023 1:10 PM EDT Height 160 cm (5' 3") 07/25/2023 1:10 PM EDT Body Mass Index 31.89 07/25/2023 1:10 PM EDT documented in this encounter Progress Notes * Susy Ochoa PA-C - 07/25/2023 1:20 PM EDT Nursing Notes: Juana Alexander, RAFITA 07/25/23 1315 Sign at exiting of workspace Acute visit for URI ,started on Sat , has a Productive white cough, SOB, weak, headache has CPAP and oxygen at home SPO2 91% Pt here today with cough, chest congestion, weakness, headache, slight SOB, sputum production for the past few days. Pt denies chills, nausea, vomiting, chest pain. Pt has diarrhea, no appetite. She did have a fever but this cleared. Pt just had chest xray for FU of pneumonia but this was about 2 weeks ago. Review of patient's allergies indicates: Allergen Reactions Iodinated Contrast Media Hives 48 hours post cardiac cath. No respiratory symptoms Influenza Vaccines Had flu symptoms x 1 month after injection Sulfa Antibiotics Unknown Current Outpatient Medications Medication Sig Dispense Refill ASPIRIN 81 MG PO TABS Take by mouth at bedtime. Cholecalciferol 1000 UNITS Capsule Take 1 Capsule by mouth at bedtime. 30 Cap 3 CPAP every night at bedtime. Vitamin C 1000 MG Oral Tablet Take 1 Tablet by mouth in the morning. 1 tab daily in the winter. Calcium Carb-Cholecalciferol 600-1000 MG-UNIT Oral Capsule Take 1 Capsule by mouth daily. Metoprolol Tartrate 25 MG Oral Tablet (Lopressor) [...] OF BREATH, OR WHEEZING 54 g 3 Losartan Potassium 50 MG Oral Tablet (Cozaar) TAKE ONE TABLET BY MOUTH EVERY DAY 100 Tablet 4 Spironolactone 25 MG Oral Tablet (Aldactone) TAKE ONE TABLET BY MOUTH ON MONDAY, MONDAY, AND MONDAY. TAKE ONE-HALF TABLET ON ALL OTHER DAYS OF THE WEEK (Patient taking differently: On hold until 06/13/23, then take 1 tab on Mon-Mon-Mon, and 1/2 tab on Vgm-Wbkq-Zhxax-Mon.) 64 Tablet 3 Atorvastatin Calcium 40 MG Oral Tablet (Lipitor) Take 1 Tablet by mouth every day 90 Tablet 3 Omeprazole 20 MG Oral Capsule Delayed Release (PriLOSEC) Take 1 Capsule by mouth in the morning. 90Capsule 3 OneTouch Delica Plus [id number] Use to test blood sugar up to twice daily. Dx E11.9 200 Each 3 OneTouch Verio In Vitro Strip (Glucose Blood) USE TO TEST BLOOD SUGAR UP TO TWICE DAILY 200 Strip 2 Nebulizer/Tubing/Mouthpiece Kit Replacement requested as hers isn't delivering medicine well and isold. DME: [facility] 1 Kit 0 Anoro Ellipta 62.5-25 MCG/ACT Inhalation Aerosol Powder Breath Activated (umeclidinium-vilanterol) Inhale 1 dose by mouth every morning. 180 Each 3 Arnuity Ellipta 200 MCG/ACT Inhalation Aerosol Powder Breath Activated (fluticasone Furoate) 1 doseinhaled every evening. Rinse mouth after use. 90 Each 3 Torsemide 10 MG Oral Tablet (Demadex) TAKE ONE TABLET BY MOUTH ONCE DAILY TAKE ONE ADDITIONAL TABLET BY MOUTH IN THE AFTERNOON ON MONDAY, MONDAY AND MONDAY 135 Tablet 1 glipiZIDE ER 5 MG Oral Tablet Extended Release 24 Hour (Glucotrol XL) TAKE ONE TABLET BY MOUTH EVERY MORNING 100 Tablet 1 oxygen IN GAS 1 LPM bled through autoCPAP 10-20 cm H2O (Patient taking differently: Administer 2 L/min(Oxygen) into nostril. 1 LPM bled through autoCPAP 10-20 cm H2O, 2LPM with exertion, 1 LPM at rest as needed) 1 Each 0 Mirtazapine 7.5 MG Oral Tablet (Remeron) Take 1 Tablet by mouth at bedtime. 90 Tablet 0 No current facility-administered medications for this visit. Past Medical History: Diagnosis Date Acute respiratory failure with hypoxia ([facility]) COPD (chronic obstructive pulmonary disease) ([facility]) COPD exacerbation ([facility]) COVID-19 10/25/2021 CRVO (central retinal vein occlusion) OS Dyslipidemia, goal LDL below 130 Hypercholesteremia Hypertension Hypertension goal BP (blood pressure) < 140/90 Hypertensive retinopathy OU Impaired fasting glucose 02/22/2013 Lung nodule PAD (peripheral artery disease) ([facility]) 07/22/2014 Pneumonia 06/08/2015 [facility] 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 Urinary, incontinence, stress female Vitreous hemorrhage of left eye ([facility]) 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 [employer] Employer: [employer] Tobacco Use Smoking status: Every Day Current packs/day: 2.00 Average packs/day: 2.0 packs/day for 58.0 years (116.0 ttl pk-yrs) Types: Cigarettes Smokeless tobacco: Never Tobacco comments: 06/07/23 currently smoking 8-10 cig/day Vaping Use Vaping Use: Never used Substance [...] on file Food Insecurity: No Food Insecurity (06/13/2023) Hunger Vital Sign Worried About Running Out of Food in the Last Year: Never true Ran Out of Food in the Last Year: Never true Transportation Needs: Not on file Physical Activity: Not on file Stress: Not on file Social Connections: Not on file Intimate Partner Violence: Not on file Housing Stability: Not on file O:Blood pressure 138/64, pulse 70, temperature 36.4 C (97.6 F), resp. rate 20, height 1.6 m (5'3"), weight 81.6 kg (180 lb), SpO2 91%, not currently . GENERAL: alert and no distress NECK: supple, no adenopathy EYES: conjunctiva are pink and non-injected, sclera clear EARS: External ears normal, Canals clear, TM's Normal NOSE: no mucosal erythema, no mucosal edema, no purulent discharge OROPHARYNX: no exudate, no erythema, lips, buccal mucosa, and tongue normal, and mucous membranes are moist HEART: regular rate & rhythm, no murmur, and no gallops LUNGS: chest symmetric with normal AP diameter, no chest deformities noted, no chest wall tenderness, lungs clear to auscultation A:Acute cough (Primary) - XR CHEST 2 VIEWS - SARS-COV-2 (COVID-19), NAAT - predniSONE 20 MG Oral Tablet (Deltasone); Take 2 Tablets by mouth in the morning for 5 days. - Doxycycline Hyclate 100 MG Oral Capsule; Take 1 Capsule by mouth in the morning and 1 Capsule before bedtime. Do all this for 10 days. Until gone.. Will xray chest. Start above meds. Covid test done. Any questions/problems, please call. If anything changes, worsens, develops new sx, please call [facility]. Follow Up: Return if symptoms worsen or fail to improve. Susy Ochoa PA-C documented in this encounter Nursing Notes * Juana Alexander RN - 07/25/2023 1:10 PM EDT Acute visit for URI ,started on Sat , has a Productive white cough, SOB, weak, headache has CPAP and oxygen at home SPO2 91% documented in this encounter Plan of Treatment Upcoming Encounters Date Type Department Care Team (Late st Contact Info) Description 07/31/2023 1:30 PM EDT Nurse Only Ancillary [address] [place] [phone] [place], Nurse Annual [address] [place] [address] 09/08/2023 1:00 PM EDT Office Visit Gastroenterology [address] [place] [address] Jelly Mills CRNP [address] [place] [address] 09/13/2023 11:15 AM EDT Office Visit Ophthalmology, [facility] [address] [place] [address] Mulugeta Hodges DO [address] [place] [address] 09/27/2023 12:00 PM EDT Office Visit Pulmonary Medicine, [facility] [address] [place] [address] Nir Ward MD [address] [place] [address] 10/31/2023 3:00 PM EDT Office Visit Family Medicine [address] [place] [phone] Susy Ochoa PA-C [address] [place] [address] [place] [address] 12/18/2023 4:00 PM EDT Office Visit Cardiology, [facility] 132 [facility] [place] [address] Alverto Sykes DO [address] [place] [address] 02/28/2024 11:00 AM EST Imaging Radiology [facility] [place] [address] 05/07/2024 4:00 PM EST Office Visit Family Medicine [address] [place] [phone] Sandra Rasheed MD [address] [place] [address] [place] [address] 05/17/2024 12:00 PM EST Office Visit Sleep Disorders Ctr [facility] 132 [facility] [place] [phone] Aminata Quiroz CRNP [address] [place] [address] Pending Results Name Type Priority Associated Diagnoses Date /Time SARS-COV-2 (COVID-19), NAAT Lab Routine Acute cough 07/25/2023 1:28 PM EDT Scheduled Orders Name Type Priority Associated Diagnoses Orde r Schedule XR CHEST 2 VIEWS Medical Imaging Routine Acute cough Ordered: 07/25/2023 Scheduled Procedures Name Priority Associated Diagnoses Date/Ti [...] Additional history exists CKD PHOS USE SMARTSET 50565 03/27/2024 01/0 10/2023, 04/26/2022, 04/21/2021, Additional history exists Albumin/Creatinine Ratio 05/02/2024 024, 04/26/2022, 08/10/2020, Additional history exists Diabetic Foot Exam 05/02/2024 05/02/2023, 0 04/26/2022, 07/22/2021, Additional history exists Diabetic Eye Exam 05/10/2024 05/10/2023, , 08/10/2022, Additional history exists Depression Screening 06/07/2024 06/08/2023 CKD HGB USE SMARTSET 15751 06/19/202406/19, 06/20/2023, 05/05/2023, Additional history exists O2 [...] this encounter Medical Devices Implanted Type Area Tax Compliance Agent Device Identifier Shelf Expiration Date Model / Serial / Lot Gynecare Tvt Device Implanted:Qty: 1 on 06/18/2013 at OR [facility] N/A: Bladder 02/17/2016 [id number] / / [id number] documented as of this encounter Visit Diagnoses Diagnosis Acute cough- Primary documented in this encounter Advance Directives Healthcare Agents on File Name Relationship Healthcare Agent Relationship Communication PIERRE Espinoza Other - (no specific identity) Health Care Pillow Agent (appointed verbally by patient or by statute hierarchy) Care Teams Motorman/Woman Relationship Specialty Start Date End Date Sandra Rasheed MD [address] [place] [address] [place] [address] PCP - General Family Medicine 06/05/15 documented as of this encounter
--- OUTSIDE RECORDS SUMMARY | 2023-08-01 09:44 | External Medical Summary | Summary of Care ---
Author Name Unknown Organization [facility] Address [address] [place] [address] Phone [phone] Care Team Providers Care Medical Office Asst Name Role Phone Sandra Rasheed MD Primary Care Provide r Reason for Visit * Reason Onset Date Comments Appointment 07/13/2023 Sleep Med/Syed t Encounter Details Date Type Department Care Team (Late st Contact Info) Description 07/13/2023 Telephone Family Medicine [address] [phone] Sandra Rasheed MD [address] [place] [phone] Appointment (Sleep Med/Gabriella ) Allergies Active Allergy Reactions Criticality Noted Date Comments Influenza Vaccines 01/06/2015 Had flu symptoms x 1 month after injection Iodinated Contrast Media High 09/01/2016 Hives 48 hours post cardiac cath. No respiratory symptoms Sulfa Antibiotics Unknown 02/22/2013 documented as of this encounter (statuses as of 07/14/2023) Medications Medication Sig Dispensed Refills Start Date [...] tab on Mon-Mon-Mon, and 1/2 tab on Tcc-Hxwb-Wavid-Mon., Informant: At Discharge, Reported on 06/08/2023 Atorvastatin [...] 3 12/26/2022 4 Active OneTouch Delica Plus [id number] :Type 2 diabetes mellitus with hemoglobin A1c [...] at bedtime. 90 Tablet 0 07/05/2023 Active documented as of this encounter (statuses as of 07/14/2023) Active Problems Problem Noted Date Diagnosed Date [...] nodule 08/14/2019 Coronary artery disease invo lving [place] coronary artery of [place] heart without angina pectoris 08/30/2018 Diabetes mellitus [...] as of this encounter (statuses as of 07/14/2023) Resolved Problems Problem Noted Date Diagnosed Date [...] as of this encounter (statuses as of 07/14/2023) Immunizations Name Administration Dates Next Due HEP [...] money to buy more. Never true 06/13/19 Within the past 12 months, t he [...] Telephone Encounter - Adia Hardin OSA - 07/13/2023 12:42 PM EDT Spencer was in today, she said she needs an appt with Aminata Quiroz, she had one in May and it was cancelled because she was in the hospital. She had another appt in August, and that was cancelled also, and Spencer doesn't know why. Right now she is scheduled for Apr 2024, she thinks she needs a sooner appt. I could not find any appts. Please call Spencer with a sooner appt. documented in this encounter Plan of Treatment Upcoming Encounters Date Type Department Care Team (Late st Contact Info) Description 07/27/2023 3:00 PM EDT Office Visit Cardiology, [facility] [address] [place] [address] Laquita Leija CRNP [address] [place] [address] 07/31/2023 1:30 PM EDT Nurse Only Ancillary [address] [place] [address] [place], Nurse [address] [place] [address] 09/08/2023 1:00 PM EDT Office Visit Gastroenterology [address] [place] [address] Jelly Mills CRNP [address] [place] [address] 09/13/2023 11:15 AM EDT Office Visit Ophthalmology, [facility] [address] [place] [address] Mulugeta Hodges DO [address] [place] [address] 09/27/2023 12:00 PM EDT Office Visit Pulmonary Medicine, [facility] [address] [place] [address] Nir Ward MD [address] [place] [address] 10/31/2023 3:00 PM EDT Office Visit Family Medicine [address] [place] [phone] Susy Ochoa PA-C [address] [place] [address] [place] [address] 02/28/2024 11:00 AM EST Imaging Radiology [address] 132 [facility] [place] [address] 05/07/2024 4:00 PM EST Office Visit Family Medicine [address] [place] [phone] Sandra Rasheed MD [address] [place] [address] [place] [address] 05/17/2024 12:00 PM EST Office Visit Sleep Disorders Ctr [facility] 132 [facility] [place] [phone] Aminata Quiroz CRNP 132 [facility] [place] [address] Scheduled Procedures Name Priority Associated Diagnoses Date/Ti [...] Additional history exists CKD PHOS USE SMARTSET 49657 03/27/2024 01/0 10/2023, 04/26/2022, 04/21/2021, Additional history exists Albumin/Creatinine Ratio 05/02/2024 024, 04/26/2022, 08/10/2020, Additional history exists Diabetic Foot Exam 05/02/2024 05/02/2023, 0 04/26/2022, 07/22/2021, Additional history exists Diabetic Eye Exam 05/10/2024 05/10/2023, , 08/10/2022, Additional history exists Depression Screening 06/07/2024 06/08/2023 CKD HGB USE SMARTSET 84342 06/19/202406/19, 06/20/2023, 05/05/2023, Additional history exists O2 ASSESSMENT COMPLETED IN PAST YEAR FOR COPD 06/19/2024 06/20/2023 COLONOSCOPY-EVERY 3 YRS AGES 18-100 07/13/2025 07/13/2022, [...] this encounter Medical Devices Implanted Type Area Revenue Stamp Cutter Device Identifier Shelf Expiration Date Model / Serial / Lot Gynecare Tvt Device Implanted:Qty: 1 on 06/18/2013 at OR [facility] N/A: Bladder 02/17/2016 [id number] / / [id number] documented as of this encounter Advance Directives Healthcare Agents on File Name Relationship Healthcare Agent Relationship Communication PIERRE Espinoza Other - (no specific identity) Health Care Barrel Turner (appointed verbally by patient or by statute hierarchy) Care Teams Medical Office Asst Relationship Specialty Start Date End Date Sandra Rasheed MD [address] [place] [address] [place] [address] PCP - General Family Medicine 06/05/15 documented as of this encounter
--- OUTSIDE RECORDS SUMMARY | 2023-08-01 09:44 | External Medical Summary | Summary of Care ---
Author Name Unknown Organization [facility] Address [address] [place] [address] Phone [phone] Care Team Providers Care Parts Chaser Name Role Phone Sandra Rasheed MD Primary Care Provide r Reason for Visit * Reason Comments NEW PATIENT L knee Knee Pain * Evaluate & Treat - Unlimited Visits (Within 10 days (routine)) - Authorized Specialty Diagnoses / Procedures Referred By Monse orellana Referred To Contact Orthopaedic Surgery / Orthopedics Diagnoses Davis's cyst of knee, left Sandra Rasheed MD [address] [place] [address] [place] [id number] Referral ID Status Reason Start Date Expiration Date Visits Requested Visits Authorized [id number] Authorized Specialty Services Required 06/29/[phone] Encounter Details Date Type Department Care Team (Late st Contact Info) Description 07/13/2023 12:30 PM EDT Office Visit Orthopaedics [address] [phone] Emanuel Cano MD [address] [place] [address] Chronic pain of left knee* Allergies Active Allergy Reactions Criticality Noted Date Comments Influenza Vaccines 01/06/2015 Had flu symptoms x 1 month after injection Iodinated Contrast Media High 09/01/2016 Hives 48 hours post cardiac cath. No respiratory symptoms Sulfa Antibiotics Unknown 02/22/2013 documented as of this encounter (statuses as of 07/13/2023) Medications Medication Sig Dispensed Refills Start Date [...] tab on Mon-Mon-Mon, and 1/2 tab on Pbn-Vghe-Ilqyq-Sat., Informant: At Discharge, Reported on 06/08/2023 Atorvastatin [...] 3 12/26/2022 4 Active OneTouch Delica Plus [id number] :Type 2 diabetes mellitus with hemoglobin A1c goal of less than 8.0% ([facility]) Use to test blood sugar up to twice daily. Dx E11.9 200 Each 3 01/11/2023 Active OneTouch Verio In Vitro Strip (Glucose Blood)Indications:Ty pe 2 diabetes mellitus with hemoglobin A1c goal of less than 8.0% ([facility]) USE TO TEST BLOOD SUGAR UP TO TWICE DAILY 200 Strip 2 02/22/2023 5 Active Nebulizer/Tubing/Sindy thpiece KitIndications:COPD, group D, by GOLD 2017 classification ([facility]) Replacement requested as hers isn't delivering [...] by GOLD 2017 classification ([facility]) 1 dose inhaled every evening. Rinse [...] of less than 8.0% ([facility]) TAKE ONE TABLET BY MOUTH EVERY MORNING [...] as of this encounter (statuses as of 07/13/2023) Active Problems Problem Noted Date Diagnosed Date [...] as of this encounter (statuses as of 07/13/2023) Resolved Problems Problem Noted Date Diagnosed Date [...] as of this encounter (statuses as of 07/13/2023) Immunizations Name Administration Dates Next Due HEP [...] as of this encounter Progress Notes * Emanuel Cano MD - 07/13/2023 12:30 PM EDT Mildred Moser [id number] Mildred Moser is a 77 year old female who presents for consultation to [facility] for left knee injury/pain. Consult requested by Sandra Rasheed MD. Mildred Moser is here unaccompanied Quality: reviewed and agree with Nursing Notes for HPI elements History: History - Pt presents today with L knee discomfort -Pt is unaccompanied today -PCP informed Pt of a Bakers Cyst L Leg -Pt denies steroid injections or sx to L knee -Pt stated she never had knee issues until May--Pt was admitted to [facility] in MAY 2023 with Pneumonia when Doctor stopped her fluid pill and Pt filled up with fluid; Pt was able to start her fluid pill again but then noticed L knee pain ROS: ROS per HPI otherwise non-contributory Past Medical History: Diagnosis Date Acute respiratory failure with hypoxia ([facility]) COPD (chronic obstructive pulmonary disease) ([facility]) COPD exacerbation ([facility]) COVID-19 10/25/2021 CRVO (central [...] stress female Vitreous hemorrhage of left eye ([facility]) Family History Problem Relation Age of Onset Arthritis Mother Diabetes Mother Heart Disorder Mother Obesity Mother Cancer Mother ovarian Stroke Mother Asthma Mother Arthritis Father Heart Disorder Father Lung Disorder Brother Diabetes Grandmother (Maternal) Diabetes Grandmother (Paternal) 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 [employer] Employer: [employer] Tobacco Use Smoking status: Every Day Current [...] on file Housing Stability: Not on file Physical Exam Constitutional: Generally well-nourished and in no acute distress Psychiatric: Mood and Affect normal Eyes: EOMI Respiratory: Normal respiratory effort with regular rate and rhythm Cardiovascular: No edema in the affected extremity(s) Knee Exam, Bilateral Inspection: Unremarkable Alignment: Normal Bilateral Effusion: Negative Bilateral Palpation: No tenderness to palpate ROM: Flexion/Neutral/Extension: L - 120/0/0 Strength: SLR: Extension: L - 5/5, R - 5/5 Flexion: L - 5/5, R - 5/5 Special Tests: Small popliteal mass left Radiology: 07/13/2023: Four view x-ray of the left knee Tricompartmental DJD, suspect narrowing in the lateral and patellofemoral compartment which would indicate moderate DJD, chondrocalcinosis - per my interpretation. Awaiting formal radiology interpretation. 06/21/2023: Venous duplex left lower extremity FINDINGS Venous flow, compression and augmentation, and no internal echoes in the common femoral, deep femoral, femoral and popliteal veins. Venous flow and compression, and no internal echoes in the saphenofemoral junction, and in the lower leg in the posterior tibial and peroneal veins. Moderate-size complex fluid collection popliteal fossa likely Davis's cyst not significantly changed and measuring 5.4 x 4.3 x 1.9 cm. IMPRESSION IMPRESSION 1. No deep venous thrombosis. 2. Moderate-size complex fluid collection popliteal fossa likely Davis's cyst not significantly changed and measuring 5.4 x 4.3 x 1.9 cm. Assessment and Plan: 1) left leg swelling Patient reports symptoms have resolved. She believes this was due to the fact her " fluid pill" wasstopped during an admission to [facility]. Ultrasound showed a small Davis cyst. Discussed that we could aspirate this, however, given she is asymptomatic in the size of small I did not recommend that given risks for infection or chronic drainage. I also discussed that at times he is Davis cyst can leak which can make the leg swollen, erythematous and similar to a DVT. She would need to have that evaluated urgently. Also given she has degenerative changes on her knee discussed we could do a steroid injection, however, once again as she is asymptomatic I did not recommend that She was in agreement Will follow up p.r.n. Emanuel Cano MD Primary Care Sports Medicine Orthopaedics [address] [phone] documented in this encounter Nursing Notes * Jeannie Stanford LPN - 07/13/2023 11:54 AM EDT NEW Pt presents today with L knee discomfort -Pt is unaccompanied today -PCP informed Pt of a Bakers Cyst L Leg -Pt denies steroid injections or sx to L knee -Pt stated she never had knee issues until May--Pt was admitted to [facility] in MAY 2023 with Pneumonia when Doctor stopped her fluid pill and Pt filled up with fluid; Pt was able to start her fluid pill again but then noticed L knee pain -xray today Shira Hardy LPN documented in this encounter Plan of Treatment Upcoming Encounters Date Type Department Care Team (Late st Contact Info) Description 07/27/2023 3:00 PM EDT Office Visit Cardiology, [facility] [address] [facility] [place] [address] Laquita Leija CRNP [address] [place] [address] 07/31/2023 1:30 PM EDT Nurse Only Ancillary [address] [place] [address] [place], Nurse Annual [address] [place] [address] 09/08/2023 1:00 PM EDT Office Visit Gastroenterology [address] [place] [address] Jelly Mills CRNP [address] [place] [address] 09/13/2023 11:15 AM EDT Office Visit Ophthalmology, [facility] [place] [address] Mulugeta Hodges, [address] [place] [address] 09/27/2023 12:00 PM EDT Office Visit Pulmonary Medicine, [facility] 132 [facility] [place] [address] Nir Ward MD [address] [facility] [place] [address] 10/31/2023 3:00 PM EDT Office Visit Family Medicine [address] [place] [phone] Susy Ochoa PA-C [address] [place] [address] [place] [address] 02/28/2024 11:00 AM EST Imaging Radiology [address] [facility] [place] [address] 05/07/2024 4:00 PM EST Office Visit Family Medicine [address] [place] [phone] Sandra Rasheed MD [address] [place] [address] [place] [address] 05/17/2024 12:00 PM EST Office Visit [facility] Disorders Ctr [facility] [place] [phone] Aminata Quiroz CRNP 132 [facility] [place] [address] Pending Results Name Type Priority Associated Diagnoses Date /Time XR KNEE 4 OR MORE VIEWS Medical Imaging Routine Chronic pain of left knee 07/13/2023 11:48 AM EDT Scheduled Procedures Name Priority Associated Diagnoses Date/Ti [...] Additional history exists CKD PHOS USE SMARTSET 58261 03/27/2024 01/0 10/2023, 04/26/2022, 04/21/2021, Additional history exists Albumin/Creatinine Ratio 05/02/2024 024, 04/26/2022, 08/10/2020, Additional history exists Diabetic Foot Exam 05/02/2024 05/02/2023, 0 04/26/2022, 07/22/2021, Additional history exists Diabetic Eye Exam 05/10/2024 05/10/2023, , 08/10/2022, Additional history exists Depression Screening 06/07/2024 06/08/2023 CKD HGB USE SMARTSET 56290 06/19/202406/19, 06/20/2023, 05/05/2023, Additional history exists O2 [...] this encounter Medical Devices Implanted Type Area Pivot Maker Device Identifier Shelf Expiration Date Model / Serial / Lot Gynecare Tvt Device Implanted:Qty: 1 on 06/18/2013 at OR [facility] N/A: Bladder 02/17/2016 [id number] / / [id number] documented as of this encounter Visit Diagnoses Diagnosis Chronic pain of left knee- Primary Pain in joint, lower leg documented in this encounter Advance Directives Healthcare Agents on File Name Relationship Healthcare Agent Relationship Communication PIERRE Espinoza Other - (no specific identity) Health Care Tape Librarian (appointed verbally by patient or by statute hierarchy) Care Teams Parts Chaser Relationship Specialty Start Date End Date Sandra Rasheed MD [address] [place] [address] [place] [address] PCP - General Family Medicine 06/05/15 documented as of this encounter
--- OUTSIDE RECORDS SUMMARY | 2023-08-01 09:44 | External Medical Summary | Summary of Care ---
Author Name Unknown Organization [facility] Address [address] [place] [address] Phone [phone] Care Team Providers Care Property Specialist Name Role Phone Sandra Rasheed MD Primary Care Provide r Reason for Visit * Reason Onset Date Comments Appointment 07/13/2023 Sleep Med/Syed orellana Encounter Details Date Type Department Care Team (Late st Contact Info) Description 07/13/2023 Telephone Family Medicine [address] [phone] Sandra Rasheed MD [address] [place] [phone] Appointment (Sleep Med/Gabriella ) Allergies Active [...] tab on Mon-Mon-Mon, and 1/2 tab on Vph-Baps-Ouzyc-Mon., Informant: At Discharge, Reported on 06/08/2023 Atorvastatin [...] 3 12/26/2022 4 Active OneTouch Delica Plus [id number] :Type 2 diabetes mellitus with hemoglobin A1c goal of less than 8.0% ([facility]) Use to test blood sugar up to twice daily. Dx E11.9 200 Each 3 01/11/2023 Active OneTouch Verio In Vitro Strip (Glucose Blood)Indications:Ty pe 2 diabetes mellitus with hemoglobin A1c goal of less than 8.0% ([facility]) USE TO TEST BLOOD SUGAR UP TO TWICE DAILY 200 Strip 2 02/22/2023 5 Active Nebulizer/Tubing/Sindy thpiece KitIndications:COPD, group D, by GOLD 2017 classification ([facility]) Replacement requested as hers isn't delivering medicine well and is old. DME: [facility] 1 Kit 0 02/22/2023 Active Anoro Ellipta 62.5-25 MCG/ACT Inhalation Aerosol Powder Breath Activated (umeclidinium-vilant jyoti) Inhale 1 dose by mouth every morning. 180 Each 3 02/22/2023 Active Arnuity Ellipta 200 MCG/ACT Inhalation Aerosol Powder Breath Activated (fluticasone Furoate)Indications: COPD, group D, by GOLD 2017 classification ([facility]) 1 dose inhaled every evening. Rinse [...] goal of less than 8.0% ([facility]) TAKE ONE TABLET BY MOUTH EVERY [...] nodule 08/14/2019 Coronary artery disease invo lving [place] coronary artery of [place] heart without angina pectoris 08/30/2018 Diabetes mellitus [...] 07/27/2023 3:00 PM EDT Office Visit Cardiology, [facility] [address] [place] [address] Laquita Leija CRNP 132 [place] [address] 07/31/2023 1:30 PM EDT Nurse Only Ancillary [address] [place] [address] [place], Nurse [address] [place] [address] 09/08/2023 1:00 PM EDT Office Visit Gastroenterology [address] [place] [address] Jelly Mills CRNP [address] [place] [address] 09/13/2023 11:15 AM EDT Office Visit Ophthalmology, [facility] [address] [place] [address] Mulugeta Hodges DO 132 [place] [address] 09/27/2023 12:00 PM EDT Office Visit Pulmonary Medicine, [facility] [address] [place] [address] Nir Ward MD [address] [place] [address] 10/31/2023 3:00 PM EDT Office Visit Family Medicine [address] [place] [phone] Susy Ochoa PA-C [address] [place] [address] [place] [address] 02/28/2024 11:00 AM EST Imaging Radiology [address] [facility] [place] [address] 05/07/2024 4:00 PM EST Office Visit Family Medicine [address] [place] [phone] Sandra Rasheed MD [address] [place] [address] [place] [address] 05/17/2024 12:00 PM EST Office Visit Sleep Disorders Ctr [facility] [address] [facility] [place] [phone] Aminata Quiroz CRNP [address] [facility] [place] [address] Scheduled Procedures Name Priority Associated Diagnoses Date/Ti [...] Additional history exists CKD PHOS USE SMARTSET 48347 03/27/2024 01/0 10/2023, 04/26/2022, 04/21/2021, Additional history exists Albumin/Creatinine Ratio 05/02/2024 024, 04/26/2022, 08/10/2020, Additional history exists Diabetic Foot Exam 05/02/2024 05/02/2023, 0 04/26/2022, 07/22/2021, Additional history exists Diabetic Eye Exam 05/10/2024 05/10/2023, , 08/10/2022, Additional history exists Depression Screening 06/07/2024 06/08/2023 CKD HGB USE SMARTSET 43450 06/19/202406/19, 06/20/2023, 05/05/2023, Additional history exists O2 [...] this encounter Medical Devices Implanted Type Area Bus Analyst Device Identifier Shelf Expiration Date Model / Serial / Lot Gynecare Tvt Device Implanted:Qty: 1 on 06/18/[address] [facility] N/A: Bladder 02/17/2016 [id number] / / [id number] documented as of this encounter Advance Directives Healthcare Agents on File Name Relationship Healthcare Agent Relationship Communication PIERRE Espinoza Other - (no specific identity) Health Care Manager Multicultural (appointed verbally by patient or by statute hierarchy) Care Teams Property Specialist Relationship Specialty Start Date End Date Sandra Rasheed MD [address] [place] [address] [place] [address] PCP - General Family Medicine 06/05/15 documented as of this encounter
--- OUTSIDE RECORDS SUMMARY | 2023-08-01 09:44 | External Medical Summary | Summary of Care ---
Author Name Unknown Organization [facility] Address [address] [place] [address] Phone [phone] Care Team Providers Care Plug Shaper Hand Name Role Phone Sandra Rasheed MD Primary Care Provide r Reason for Visit * Reason Onset Date Comments Appointment 07/13/2023 Sleep Med/Syed t Encounter Details Date Type Department Care Team (Late st Contact Info) Description 07/13/2023 Telephone Family Medicine [address] [phone] Sandra Rasheed MD [address] [place] [phone] Appointment (Sleep Med/Gabriella ) Allergies Active [...] tab on Mon-Mon-Mon, and 1/2 tab on Hkn-Hsop-Giwbk-Mon., Informant: At Discharge, Reported on 06/08/2023 Atorvastatin [...] 3 12/26/2022 4 Active OneTouch Delica Plus [id number] :Type 2 diabetes mellitus with hemoglobin A1c goal of less than 8.0% ([facility]) Use to test blood sugar up to twice daily. Dx E11.9 200 Each 3 01/11/2023 Active OneTouch Verio In Vitro Strip (Glucose Blood)Indications:Ty pe 2 diabetes mellitus with hemoglobin A1c goal of less than 8.0% ([facility]) USE TO TEST BLOOD SUGAR UP TO TWICE DAILY 200 Strip 2 02/22/2023 5 Active Nebulizer/Tubing/Sindy thpiece KitIndications:COPD, group D, by GOLD 2017 classification ([facility]) Replacement requested as hers isn't delivering medicine well and is old. DME: [facility] 1 Kit 0 02/22/2023 Active Anoro Ellipta 62.5-25 MCG/ACT Inhalation Aerosol Powder Breath Activated (umeclidinium-vilant jyoti) Inhale 1 dose by mouth every morning. 180 Each 3 02/22/2023 Active Arnuity Ellipta 200 MCG/ACT Inhalation Aerosol Powder Breath Activated (fluticasone Furoate)Indications: COPD, group D, by GOLD 2017 classification ([facility]) 1 dose inhaled every evening. Rinse mouth [...] goal of less than 8.0% ([facility]) TAKE ONE TABLET BY MOUTH EVERY MORNING [...] nodule 08/14/2019 Coronary artery disease invo lving [place] coronary artery of [place] heart without angina pectoris 08/30/2018 Diabetes mellitus [...] Telephone Encounter - Manish Lawrence OSA - 07/14/2023 10:20 AM EDT Per notes from Aminata, Pt was to be seen back in a year and see Dr. Ward for Pulmonary, which appointment is setup for September. Forwarding to Aminata to make sure this is the plan. Please advise. * Telephone Encounter - Adia Hardin OSA - 07/13/2023 12:42 PM EDT Spencer was in today, she said she needs an appt with Aminata Gabriella, she had one in May and it [...] 3:00 PM EDT Office Visit Cardiology, [facility] [address] [place] [address] Laquita Leija CRNP 132 [place] [address] 07/31/2023 1:30 PM EDT Nurse Only Ancillary [address] [place] [address] [place], Nurse [address] [place] [address] 09/08/2023 1:00 PM EDT Office Visit Gastroenterology [address] [place] [address] Jelly Mills CRNP [address] [place] [address] 09/13/2023 11:15 AM EDT Office Visit Ophthalmology, [facility] 132 [place] [address] Mulugeta Hodges DO 132 [place] [address] 09/27/2023 12:00 PM EDT Office Visit Pulmonary Medicine, [facility] 132 [facility] [place] [address] Nir Ward MD [address] [place] [address] 10/31/2023 3:00 PM EDT Office Visit Family Medicine [address] [phone] Susy Ochoa PA-C [address] [place] [address] [place] [address] 02/28/2024 11:00 AM EST Imaging Radiology [address] [facility] [place] [address] 05/07/2024 4:00 PM EST Office Visit Family Medicine [address] [place] [phone] Sandra Rasheed MD [address] [place] [address] [place] [address] 05/17/2024 12:00 PM EST Office Visit Sleep Disorders Ctr [facility] 132 [facility] [place] [phone] Aminata Quiroz CRNP 132 [facility] [place] [address] Scheduled Procedures Name Priority Associated Diagnoses Date/Ti me COLONOSCOPY FLEXIBLE PROXIMAL DIAGNOSTIC Recall History of colon polyps Health Maintenance Due Date Last Done Comments Zoster Vaccines (1 of 2) 1996 *ADVANCE DIRECTIVE NOT ON FILE 09/01/2018 DISCUSS TOBACCO CESSATION (REFER TO SMARTSET #3291) 12/02/2021 12/02/2020 COVID-19 Vaccine (2022- season) 2022 DXA Scan 07/24/2023 07/23/2020, 07/20, 03/25/2013 HbA1c 10/31/2023 05/02/2023, 10/18, 04/26/2022, Additional history exists Influenza Vaccine (FLU shot) (Season Ended) 2023 12/03/2013 GFR 12/20/2023 06/20/2023, 04/20, 05/02/2023, Additional history exists CKD PHOS USE SMARTSET 66054 03/27/2024/10/2023, 04/26/2022, 04/21/2021, Additional history exists Albumin/Creatinine Ratio 05/02/2024 024, 04/26/2022, 08/10/2020, Additional history exists Diabetic Foot Exam 05/02/2024 05/02/2023, 0 04/26/2022, 07/22/2021, Additional history exists Diabetic Eye Exam 05/10/2024 05/10/2023, , 08/10/2022, Additional history exists Depression Screening 06/07/2024 06/08/2023 CKD HGB USE SMARTSET 56910 06/19/202406/19, 06/20/2023, 05/05/2023, Additional history exists O2 [...] this encounter Medical Devices Implanted Type Area Ad Operations Coordinator Device Identifier Shelf Expiration Date Model / Serial / Lot Gynecare Tvt Device Implanted:Qty: 1 on 06/18/2013 at OR [facility] N/A: Bladder 02/17/2016 [id number] / / [id number] documented as of this encounter Advance Directives Healthcare Agents on File Name Relationship Healthcare Agent Relationship Communication PIERRE Espinoza Other - (no specific identity) Health Care Special Order Jeweler (appointed verbally by patient or by statute hierarchy) Care Teams Plug Shaper Hand Relationship Specialty Start Date End Date Sandra Rasheed MD [address] [place] [address] [place] [address] PCP - General Family Medicine 06/05/15 documented as of this encounter
--- OUTSIDE RECORDS SUMMARY | 2023-08-01 09:44 | External Medical Summary | Summary of Care ---
Author Name Unknown Organization [facility] Address [address] [place] [address] Phone [phone] Care Team Providers Care Linux Admin Name Role Phone Sandra Rasheed MD Primary Care Provide r Reason for Visit * Reason Onset Date Comments Appointment 07/13/2023 Sleep Med/Syed t Encounter Details Date Type Department Care Team (Late st Contact Info) Description 07/13/2023 Telephone Family Medicine [address] [phone] Sandra Rasheed MD [address] [place] [address] Appointment (Sleep Med/Gabriella ) Allergies Active [...] tab on Mon-Mon-Mon, and 1/2 tab on Xwd-Poim-Pmack-Mon., Informant: At Discharge, Reported on 06/08/2023 Atorvastatin [...] 3 12/26/2022 4 Active OneTouch Delica Plus [id number] :Type 2 diabetes mellitus with hemoglobin A1c [...] nodule 08/14/2019 Coronary artery disease invo lving [place] coronary artery of [place] heart without angina pectoris 08/30/2018 Diabetes mellitus [...] Encounter - Manish Lawrence OSA - 07/14/2023 3:50 PM EDT Mysent informing patient. * Telephone Encounter - Aminata Quiroz CRNP - 07/14/2023 2:54 PM EDT Correct. Keep current appointments as scheduled. * Telephone Encounter - Manish Lawrence OSA [...] 07/27/2023 3:00 PM EDT Office Visit Cardiology, [facility] [address] [place] [address] Laquita Leija CRNP [address] [place] [address] 07/31/2023 1:30 PM EDT Nurse Only Ancillary [address] [place] [address] Hank, Nurse [address] [place] [address] 09/08/2023 1:00 PM EDT Office Visit Gastroenterology [address] [place] [address] Jelly Mills CRNP 132 [facility] [place] [address] 09/13/2023 11:15 AM EDT Office Visit Ophthalmology, [facility] 132 [facility] [place] [address] Mulugeta Hodges DO [address] [place] [address] 09/27/2023 12:00 PM EDT Office Visit Pulmonary Medicine, [facility] 132 [facility] [place] [address] Nir Ward MD [facility] [address] 10/31/2023 3:00 PM EDT Office Visit Family Medicine [address] [place] [address] Susy Ochoa PA-C [address] [place] [address] [place] [address] 02/28/2024 11:00 AM EST Imaging Radiology [address] [place] [address] 05/07/2024 4:00 PM EST Office Visit Family Medicine [address] [place] [phone] Sandra Rasheed MD [address] [place] [address] [place] [address] 05/17/2024 12:00 PM EST Office Visit Sleep Disorders Ctr [facility] 132 [facility] [place] [phone] Aminata Quiroz CRNP [address] [place] [address] Scheduled Procedures Name Priority Associated Diagnoses Date/Ti [...] Additional history exists CKD PHOS USE SMARTSET 30803 03/27/2024 01/0 10/2023, 04/26/2022, 04/21/2021, Additional history exists Albumin/Creatinine Ratio 05/02/2024 024, 04/26/2022, 08/10/2020, Additional history exists Diabetic Foot Exam 05/02/2024 05/02/2023, 0 04/26/2022, 07/22/2021, Additional history exists Diabetic Eye Exam 05/10/2024 05/10/2023, , 08/10/2022, Additional history exists Depression Screening 06/07/2024 06/08/2023 CKD HGB USE SMARTSET 85542 06/19/202406/19, 06/20/2023, 05/05/2023, Additional history exists O2 ASSESSMENT COMPLETED IN PAST YEAR FOR COPD 06/19/2024 06/20/2023 Colonoscopy 07/13/2025 07/13/2022, 06/19, 07/13/2022, Additional history [...] this encounter Medical Devices Implanted Type Area Wash Oil Pump Operator Helper Device Identifier Shelf Expiration Date Model / Serial / Lot Gynecare Tvt Device Implanted:Qty: 1 on 06/18/2013 at OR [facility] N/A: Bladder 02/17/2016 [id number] / / [id number] documented as of this encounter Advance Directives Healthcare Agents on File Name Relationship Healthcare Agent Relationship Communication PIERRE Espinoza Other - (no specific identity) Health Care Stevedore Dock (appointed verbally by patient or by statute hierarchy) Care Teams Linux Admin Relationship Specialty Start Date End Date Sandra Rasheed MD [address] [place] [address] [place] [id number] PCP - General Family Medicine 06/05/15 documented as of this encounter
--- OUTSIDE RECORDS SUMMARY | 2023-08-01 09:44 | External Medical Summary | Summary of Care ---
Author Name Unknown Organization [facility] Address [address] [place] [address] Phone [phone] Care Team Providers Care Quarrying Manager Name Role Phone Sandra Rasheed MD Primary Care Provide r Reason for Visit * Reason Onset Date Comments Appointment 07/13/2023 Sleep Med/Syed t Encounter Details Date Type Department Care Team (Late st Contact Info) Description 07/13/2023 Telephone Family Medicine [address] [phone] Sandra Rasheed MD [address] [place] [address] Appointment (Sleep Med/Gabriella ) Allergies Active [...] tab on Mon-Mon-Mon, and 1/2 tab on Tnv-Etjs-Nxnuj-Mon., Informant: At Discharge, Reported on 06/08/2023 Atorvastatin [...] 3 12/26/2022 4 Active OneTouch Delica Plus [id number] :Type 2 diabetes mellitus with hemoglobin A1c [...] 08/14/2019 Coronary artery disease invo lving [place] coronary artery of [place] heart without angina pectoris 08/30/2018 Diabetes mellitus [...] encounter Miscellaneous Notes * Telephone Encounter - Aminata Quiroz CRNP [...] PM EDT Office Visit Cardiology, [facility] [address] [place] [address] Laquita Leija CRNP 132 [place] [address] 07/31/2023 1:30 PM EDT Nurse Only Ancillary [address] [place] [address] Movalley, Nurse [address] [place] [address] 09/08/2023 1:00 PM EDT Office Visit Gastroenterology [address] [place] [address] Jelly Mills CRNP 132 [place] [address] 09/13/2023 11:15 AM EDT Office Visit Ophthalmology, [facility] 132 [place] [address] Mulugeta Hodges DO 132 [facility] [place] [address] 09/27/2023 12:00 PM EDT Office Visit Pulmonary Medicine, [facility] 132 [facility] [place] [address] Nir Ward MD [address] [facility] [place] [address] 10/31/2023 3:00 PM EDT Office Visit Family Medicine [address] [place] [phone] Susy Ochoa PA-C [address] [place] [address] [place] [address] 02/28/2024 11:00 AM EST Imaging Radiology [address] 132 [facility] [place] [address] 05/07/2024 4:00 PM EST Office Visit Family Medicine [address] [place] [phone] Sandra Rasheed MD [address] [place] [address] [place] [address] 05/17/2024 12:00 PM EST Office Visit Sleep Disorders Ctr [facility] 132 [facility] [place] [phone] Aminata Quiroz CRNP 132 [facility] [place] [address] Scheduled Procedures Name Priority Associated Diagnoses Date/Ti [...] Additional history exists CKD PHOS USE SMARTSET 11686 03/27/202410/2023, 04/26/2022, 04/21/2021, Additional history exists Albumin/Creatinine Ratio 05/02/2024 024, 04/26/2022, 08/10/2020, Additional history exists Diabetic Foot Exam 05/02/2024 05/02/2023, 0 04/26/2022, 07/22/2021, Additional history exists Diabetic Eye Exam 05/10/2024 05/10/2023, , 08/10/2022, Additional history exists Depression Screening 06/07/2024 06/08/2023 CKD HGB USE SMARTSET 50700 06/19/202406/19, 06/20/2023, 05/05/2023, Additional history exists O2 ASSESSMENT COMPLETED IN PAST YEAR FOR COPD 06/19/2024 06/20/2023 Colonoscopy 07/13/2025 07/13/2022, 06/19, 07/13/2022, Additional history exists DTaP,Tdap,and Td Vaccines (3 - Td or Tdap) 08/12/2032 08/12/2022, 02/22/2013 Pneumococcal Vaccine: 65+ Years Completed 06/15/2015, 02/22/2013 Alpha-1 Antitrypsin Completed 09/08/2016 Hepatitis C Screening Completed 09/08/2016 Hepatitis B Completed 08/21/2017, 0 07/2017, 02/17/2017 GARDASIL-HPV IMMUNIZATION SERIES Aged Out No longer eligible based on patient's age to complete this topic MENINGOCOCCAL (MENACTRA/MENVEO) Aged Out No longer eligible based on patient's age to complete this topic documented as of this encounter Medical Devices Implanted Type Area Clinic Administrator Device Identifier Shelf Expiration Date Model / Serial / Lot Gynecare Tvt Device Implanted:Qty: 1 on 06/18/2013 at OR [facility] N/A: Bladder 02/17/2016 [id number] / / [id number] documented as of this encounter Advance Directives Healthcare Agents on File Name Relationship Healthcare Agent Relationship Communication PIERRE Espinoza Other - (no specific identity) Health Care Milk Treater (appointed verbally by patient or by statute hierarchy) Care Teams Quarrying Manager Relationship Specialty Start Date End Date Sandra Rasheed MD [address] [place] [address] [place] [address] PCP - General Family Medicine 06/05/15 documented as of this encounter
--- OUTSIDE RECORDS SUMMARY | 2023-08-01 09:45 | External Medical Summary | Summary of Care ---
Author Name Unknown Organization [facility] Address [address] [place] [address] Phone [phone] Care Team Providers Care Hvac Project Manager Name Role Phone Sandra Rasheed MD Primary Care Provide r Reason for Visit * Reason Onset Date Comments Follow Up 06/29/2023 Appointment 06/29/2023 Ortho Encounter Details Date Type Department Care Team (Late st Contact Info) Description 06/29/2023 Telephone Family Medicine [address] [phone] Sandra Rasheed MD [address] [place] [address] Follow Up; Appointment (Ortho ) Allergies Active Allergy Reactions Criticality Noted Date Comments Influenza Vaccines 01/06/2015 Had flu symptoms x 1 month after injection Iodinated Contrast Media High 09/01/2016 Hives 48 hours post cardiac cath. No respiratory symptoms Sulfa Antibiotics Unknown 02/22/2013 documented as of this encounter (statuses as of 06/29/2023) Medications Medication Sig Dispensed Refills Start Date End Date Status ASPIRIN 81 MG PO TABS Take by mouth at bedtime. 0 Active Cholecalciferol 1000 UNITS Capsule Take 1 Capsule by mouth at bedtime. 30 Cap 3 7 Active CPAP every night at bedtime. 0 Active Vitamin C 1000 MG Oral Tablet Take 1 Tablet by mouth in the morning. 1 tab daily in the winter. 0 Active Calcium Carb-Cholecalcifero l 600-1000 MG-UNIT Oral Capsule Take 1 Capsule [...] BREATH, OR WHEEZING 54 g 3 3 Active Losartan Potassium 50 MG Oral Tablet [...] 64 Tablet 3 3 12/19/19 24 Active Additional Information Patient taking differently: On hold until 06/13/23, then take 1 tab on Mon-Mon-Mon, and 1/2 tab on Yyv-Oyor-Gdlgv-Mon., Informant: At Discharge, Reported on 06/08/2023 Atorvastatin Calcium 40 MG Oral Tablet (Lipitor)Indication s:Dyslipidemia, goal LDL below 130,Hypertension goal BP (blood pressure) < 150/90 Take 1 Tablet by mouth every day 90 Tablet 3 3 12/26/19 24 Active Omeprazole 20 MG Oral Capsule Delayed Release (PriLOSEC)Dalilao ns:Hypertension goal BP (blood pressure) < 150/90 Take 1 Capsule by mouth in the morning. 90 Capsule 3 3 12/26/19 24 Active OneTouch Delica Plus [id number] s:Type 2 diabetes mellitus with hemoglobin A1c goal of less than 8.0% ([facility]) Use to test blood sugar up to twice daily. Dx E11.9 200 Each 3 3 Active OneTouch Verio In Vitro Strip (Glucose Blood)Indications:T ype 2 diabetes mellitus with hemoglobin A1c goal of less than 8.0% ([facility]) USE TO TEST BLOOD SUGAR UP TO TWICE DAILY 200 Strip 2 3 03/29/19 25 Active Nebulizer/Tubing/Mo uthpiece KitIndications:COPD , group D, by GOLD 2017 classification ([facility]) Replacement requested as hers isn't delivering medicine well and is old. DME: [facility] 1 Kit 0 3 Active Anoro Ellipta 62.5-25 MCG/ACT Inhalation Aerosol Powder Breath Activated (umeclidinium-vilan terol) Inhale 1 dose by mouth every morning. 180 Each 3 3 Active Arnuity Ellipta 200 MCG/ACT Inhalation Aerosol Powder Breath Activated (fluticasone Furoate)Indications :COPD, group D, by GOLD 2017 classification ([facility]) 1 dose inhaled every evening. Rinse mouth after use. 90 Each 3 3 Active Torsemide 10 MG Oral Tablet (Demadex)Indication s:Hypertension with goal blood pressure less than 140/80,Localized edema TAKE ONE TABLET BY MOUTH ONCE DAILY TAKE ONE ADDITIONAL TABLET BY MOUTH IN THE AFTERNOON ON MONDAY, MONDAY AND MONDAY 135 Tablet 1 4 Active glipiZIDE ER 5 MG Oral Tablet Extended Release 24 Hour (Glucotrol XL)Indications:Type 2 diabetes mellitus with hemoglobin A1c goal of less than 8.0% ([facility]) TAKE ONE TABLET BY MOUTH EVERY MORNING 100 Tablet 1 4 05/16/19 25 Active oxygen IN GAS 1 LPM bled through autoCPAP 10-20 cm H2O 1 Each 0 4 Active Additional Information Patient taking differently: 2 L/min(Oxygen) Nasal, 1 LPM bled through autoCPAP 10-20 cm H2O, 2LPM with exertion, 1 LPM at rest as needed, Reported on 06/08/2023 traZODone HCl 50 MG Oral Tablet (Desyrel)Indication s:Primary insomnia Take 1 Tablet by mouth at bedtime. 30 Tablet 5 04/06/29/19 24 Discontinued documented as of this encounter (statuses as of 06/29/2023) Active Problems Problem Noted Date Diagnosed Date [...] nodule 08/14/2019 Coronary artery disease invo lving [place] coronary artery of [place] heart without angina pectoris 08/30/2018 Diabetes mellitus [...] as of this encounter (statuses as of 06/29/2023) Resolved Problems Problem Noted Date Diagnosed Date Resolved Date Hypertensive heart and kidne y disease with chronic diastolic congestive heart failure and stage 3a chronic kidney disease 06/20/2023 04/04/2023 Acute respiratory failure with hypoxia 05/31/2023 06/14/2023 [...] as of this encounter (statuses as of 06/29/2023) Immunizations Name Administration Dates Next Due HEP [...] Telephone Encounter - Adia Hardin OSA - 06/29/2023 10:14 AM EDT Ortho appt scheduled, pt aware. * Telephone Encounter - Paty Rai LPN - 06/29/2023 9:16 AM EDT Called pt. Informed of message. She verbalized understanding. * Telephone Encounter - Sandra Rasheed MD - 06/29/2023 8:23 AM EDT Please call patient with unread MyG message documented in this encounter Plan of Treatment Upcoming Encounters Date Type Department Care Team (Late st Contact Info) Description 07/13/2023 12:30 PM EDT Office Visit Orthopaedics [address] [place] [phone] Emanuel Cano MD [address] [place] [address] 07/27/2023 3:00 PM EDT Office Visit Cardiology, [facility] [address] [place] [address] Laquita Leija CRNP [address] [place] [address] 07/31/2023 1:30 PM EDT Nurse Only Ancillary [address] [place] [address] [place], Nurse [address] [place] [address] 09/08/2023 1:00 PM EDT Office Visit Gastroenterology [address] [place] [address] Jelly Mills CRNP [address] [place] [address] 09/13/2023 11:15 AM EDT Office Visit Ophthalmology, [facility] [address] [place] [address] Mulugeta Hodges, [address] [place] [address] 09/27/2023 12:00 PM EDT Office Visit Pulmonary Medicine, [facility] 132 [facility] [place] [address] Nir Ward [facility] [address] 10/31/2023 3:00 PM EDT Office Visit Family Medicine [address] [place] [phone] Susy Ochoa PA-C [address] [place] [address] [place] [address] 02/28/2024 11:00 AM EST Imaging Radiology [address] 132 [facility] [place] [address] 05/07/2024 4:00 PM EST Office Visit Family Medicine [address] [phone] Sandra Rasheed MD [address] [place] [address] [place] [address] 05/17/2024 12:00 PM EST Office Visit Sleep Disorders Ctr [facility] 132 [facility] [place] [phone] Aminata Quiroz CRNP 132 [facility] [place] [address] Scheduled Procedures Name Priority Associated Diagnoses Date/Ti [...] Additional history exists CKD PHOS USE SMARTSET 52189 03/27/202410/2023, 04/26/2022, 04/21/2021, Additional history exists Albumin/Creatinine Ratio 05/02/2024 024, 04/26/2022, 08/10/2020, Additional history exists Diabetic Foot Exam 05/02/2024 05/02/2023, 0 04/26/2022, 07/22/2021, Additional history exists Diabetic Eye Exam 05/10/2024 05/10/2023, , 08/10/2022, Additional history exists Depression Screening 06/07/2024 06/08/2023 CKD HGB USE SMARTSET 63898 06/19/202406/19, 06/20/2023, 05/05/2023, Additional history exists O2 [...] encounter Medical Devices Implanted Type Area Assembler Golf Wood Head Device Identifier Shelf Expiration Date Model / Serial / Lot Gynecare Tvt Device Implanted:Qty: 1 on 06/18/2013 at OR [facility] N/A: Bladder 02/17/2016 [id number] / / [id number] documented as of this encounter Advance Directives Healthcare Agents on File Name Relationship Healthcare Agent Relationship Communication PIERRE Espinoza Other - (no specific identity) Health Care Analysis Lead (appointed verbally by patient or by statute hierarchy) Care Teams Hvac Project Manager Relationship Specialty Start Date End Date Sandra Rasheed MD [address] [place] [address] [place] [phone] PCP - General Family Medicine 06/05/15 documented as of this encounter
--- OUTSIDE RECORDS SUMMARY | 2023-08-01 09:45 | External Medical Summary | Summary of Care ---
Author Name Unknown Organization [facility] Address [address] [place] [address] Phone [phone] Care Team Providers Care Drencher Name Role Phone Sandra Rasheed MD Primary Care Provide r Reason for Visit * Reason Onset Date Comments Test Results 06/21/2023 Doppler Encounter Details Date Type Department Care Team (Late st Contact Info) Description 06/21/2023 Telephone Family Medicine [address] [phone] Sandra Rasheed MD [address] [place] [address] [place] [address] Test Results (Doppler) Allergies Active Allergy Reactions Criticality Noted Date Comments Influenza Vaccines 01/06/2015 Had flu symptoms x 1 month after injection Iodinated Contrast Media High 09/01/2016 Hives 48 hours post cardiac cath. No respiratory symptoms Sulfa Antibiotics Unknown 02/22/2013 documented as of this encounter (statuses as of 06/21/2023) Medications Medication Sig Dispensed Refills Start Date [...] tab on Mon-Mon-Mon, and 1/2 tab on Gyg-Dtaz-Mkkre-Mon., Informant: At Discharge, Reported on 06/08/2023 Atorvastatin [...] 3 12/26/2022 4 Active OneTouch Delica Plus [id number] :Type 2 diabetes mellitus with hemoglobin A1c goal of less than 8.0% ([facility]) Use to test blood sugar up to twice daily. Dx E11.9 200 Each 3 01/11/2023 Active OneTouch Verio In Vitro Strip (Glucose Blood)Indications:Ty pe 2 diabetes mellitus with hemoglobin A1c goal of less than 8.0% ([facility]) USE TO TEST BLOOD SUGAR UP TO TWICE DAILY 200 Strip 2 02/22/2023 5 Active Nebulizer/Tubing/Sindy thpiece KitIndications:COPD, group D, by GOLD 2017 classification ([facility]) Replacement requested as hers isn't delivering medicine well and is old. DME: [facility] 1 Kit 0 02/22/2023 Active Anoro Ellipta 62.5-25 MCG/ACT Inhalation Aerosol Powder Breath Activated (umeclidinium-vilant jyoti) Inhale 1 dose by mouth every morning. 180 Each 3 02/22/2023 Active Arnuity Ellipta 200 MCG/ACT Inhalation Aerosol Powder Breath Activated (fluticasone Furoate)Indications: COPD, group D, by GOLD 2017 classification ([facility]) 1 dose inhaled every evening. Rinse mouth [...] A1c goal of less than 8.0% ([facility]) TAKE ONE TABLET BY MOUTH EVERY MORNING 100 Tablet 1 05/17/2023 5 Active oxygen IN GAS 1 LPM bled through autoCPAP 10-20 cm H2O 1 Each 0 06/07/2023 Active Additional Information Patient taking differently: 2 L/min(Oxygen) Nasal, 1 LPM bled through autoCPAP 10-20 cm H2O, 2LPM with exertion, 1 LPM at rest as needed, Reported on 06/08/2023 traZODone HCl 50 MG Oral Tablet (Desyrel)Indications :Primary insomnia Take 1 Tablet by mouth at bedtime. 30 Tablet 5 06/20/2023 Active documented as of this encounter (statuses as of 06/21/2023) Active Problems Problem Noted Date Diagnosed Date [...] nodule 08/14/2019 Coronary artery disease invo lving [place] coronary artery of [place] heart without angina pectoris 08/30/2018 Diabetes mellitus [...] as of this encounter (statuses as of 06/21/2023) Resolved Problems Problem Noted Date Diagnosed Date [...] as of this encounter (statuses as of 06/21/2023) Immunizations Name Administration Dates Next Due HEP [...] Telephone Encounter - Sandra Rasheed MD - 06/21/2023 1:00 PM EDT Noted. Thank you. * Telephone Encounter - Juana Alexander RN - 06/21/2023 12:43 PM EDT Verbal from [place] in Ultrasound Venous Doppler of left leg was negative for DVT documented in this encounter Plan of Treatment Upcoming Encounters Date Type Department Care Team (Late st Contact Info) Description 07/27/2023 3:00 PM EDT Office Visit Cardiology, [facility] [address] [place] [address] Laquita Leija CRNP 132 [place] [address] 07/31/2023 1:30 PM EDT Nurse Only Ancillary [address] [place] [address] [place], Nurse Annual [address] [place] [address] 09/08/2023 1:00 PM EDT Office Visit Gastroenterology [address] [place] [address] Jelly Mills CRNP [address] [place] [address] 09/13/2023 11:15 AM EDT Office Visit Ophthalmology, [facility] [address] [place] [address] Mulugeta Hodges DO [address] [place] [address] 09/27/2023 12:00 PM EDT Office Visit Pulmonary Medicine, [facility] [address] [place] [address] Nir Ward MD [address] [place] [address] 10/31/2023 3:00 PM EDT Office Visit Family Medicine [address] [place] [phone] Susy Ochoa PA-C [address] [place] [address] [place] [address] 02/28/2024 11:00 AM EST Imaging Radiology [address] 132 [facility] [place] [address] 05/07/2024 4:00 PM EST Office Visit Family Medicine [address] [place] [phone] Sandra Rasheed MD [address] [place] [address] [place] [address] 05/17/2024 12:00 PM EST Office Visit Sleep Disorders Ctr [facility] 132 [facility] [place] [phone] Aminata Quiroz CRNP 132 [facility] [place] [address] Scheduled Procedures Name Priority Associated Diagnoses Date/Ti [...] Additional history exists CKD PHOS USE SMARTSET 25844 03/27/2024/0 10/2023, 04/26/2022, 04/21/2021, Additional history exists Albumin/Creatinine Ratio 05/02/202405/02/ 024, 04/26/2022, 08/10/2020, Additional history exists Diabetic Foot Exam 05/02/2024 05/02/2023, 0 04/26/2022, 07/22/2021, Additional history exists Diabetic Eye Exam 05/10/2024 05/10/2023, , 08/10/2022, Additional history exists Depression Screening 06/07/2024 06/08/2023 CKD HGB USE SMARTSET 09298 06/19/202406/19, 06/20/2023, 05/05/2023, Additional history exists O2 [...] this encounter Medical Devices Implanted Type Area Combination Window Installer Device Identifier Shelf Expiration Date Model / Serial / Lot Gynecare Tvt Device Implanted:Qty: 1 on 06/18/2013 at OR [facility] N/A: Bladder 02/17/2016 [id number] / / [id number] documented as of this encounter Advance Directives Healthcare Agents on File Name Relationship Healthcare Agent Relationship Communication PIERRE Espinoza Other - (no specific identity) Health Care Poundmaster (appointed verbally by patient or by statute hierarchy) Care Teams Drencher Relationship Specialty Start Date End Date Sandra Rasheed MD [address] [place] [address] [place] [phone] PCP - General Family Medicine 3/18/16 documented as of this encounter
--- OUTSIDE RECORDS SUMMARY | 2023-08-01 09:45 | External Medical Summary | Summary of Care ---
Author Name Unknown Organization [facility] Address [address] [place] [address] Phone [phone] Care Team Providers Care Logistics Loss Prevention Manager Name Role Phone Sandra Rasheed MD Primary Care Provide r Reason for Visit * Reason Onset Date Comments Hospital Follow-Up Hospital Follow-Up 06/20/2023 Encounter Details Date Type Department Care Team (Latest Contact Info) Description 06/20/2023 2:20 PM EDT Office Visit Family Medicine [address] [phone] Sandra Rasheed MD [address] [place] [address] [place] [phone] Hospital discharge follow-up*; Pneumonia of right middle lobe due to infectious organism; Rhinovirus infection; Edema of left lower extremity; Primary insomnia; Hypertensive heart and kidney disease with chronic diastolic congestive heart failure and stage 3b chronic kidney disease ([facility]); Centrilobular emphysema ([facility]); COPD, group D, by GOLD 2017 classification ([facility]); Type 2 diabetes mellitus with stage 3b chronic kidney disease, without long-term current use of insulin ([facility]); Nocturnal hypoxemia; Hypomagnesemia Allergies Active Allergy Reactions Criticality Noted Date Comments Influenza Vaccines 01/06/2015 Had flu symptoms x 1 month after injection Iodinated Contrast Media High 09/01/2016 Hives 48 hours post cardiac cath. No respiratory symptoms Sulfa Antibiotics Unknown 02/22/2013 documented as of this encounter (statuses as of 06/20/2023) Medications Medication Sig Dispensed Refills Start Date [...] tab on Mon-Mon-Mon, and 1/2 tab on Jhx-Wkor-Linia-Sat., Informant: At Discharge, Reported on 06/08/2023 Atorvastatin [...] 3 12/26/2022 4 Active OneTouch Delica Plus [id number] :Type 2 diabetes mellitus with hemoglobin A1c goal of less than 8.0% ([facility]) Use to test blood sugar up to twice daily. Dx E11.9 200 Each 3 01/11/2023 Active OneTouch Verio In Vitro Strip (Glucose Blood)Indications:Ty pe 2 diabetes mellitus with hemoglobin A1c goal of less than 8.0% ([facility]) USE TO TEST BLOOD SUGAR UP TO TWICE DAILY 200 Strip 2 02/22/2023 5 Active Nebulizer/Tubing/Sindy thpiece KitIndications:COPD, group D, by GOLD 2017 classification ([facility]) Replacement requested as hers isn't delivering medicine well and is old. DME: [facility] 1 Kit 0 02/22/2023 Active Anoro Ellipta 62.5-25 MCG/ACT Inhalation Aerosol Powder Breath Activated (umeclidinium-vilant jyoti) Inhale 1 dose by mouth every morning. 180 Each 3 02/22/2023 Active Arnuity Ellipta 200 MCG/ACT Inhalation Aerosol Powder Breath Activated (fluticasone Furoate)Indications: COPD, group D, by GOLD 2017 classification ([facility]) 1 dose inhaled every evening. Rinse mouth [...] goal of less than 8.0% ([facility]) TAKE ONE TABLET BY MOUTH EVERY MORNING [...] as of this encounter (statuses as of 06/20/2023) Active Problems Problem Noted Date Diagnosed Date [...] nodule 08/14/2019 Coronary artery disease invo lving [place] coronary artery of [place] heart without angina pectoris 08/30/2018 Diabetes mellitus [...] as of this encounter (statuses as of 06/20/2023) Resolved Problems Problem Noted Date Diagnosed Date [...] as of this encounter (statuses as of 06/20/2023) Immunizations Name Administration Dates Next Due HEP [...] Sign Reading Time Taken Comments Blood Pressure 118/62 06/20/2023 2:26 PM EDT Pulse 82 06/20/2023 2:26 PM EDT Temperature 36.1 C (97 F) 06/20/2023 2:26 PM EDT Respiratory Rate - - Oxygen Saturation 95% 06/20/2023 2:26 PM EDT Inhaled Oxygen Concentration - - Weight 80.7 kg (178 lb) 06/20/2023 2:26 PM EDT Height - - Body Mass Index 31.53 06/07/2023 2:40 PM EDT documented in this encounter Patient Instructions * Patient Instructions* Sandra Rasheed MD - 06/20/2023 2:29 PM EDT Taking Medicine Safely Medicine is given to help treat or prevent illness. But if you don't take it correctly, it might not help. It might even harm you. Your doctor or pharmacist can help you learn the right way to take your medicine. Listed below are some tips to help you take medicine safely. Safety Tips Have a routine for taking each medicine. Make it part of something you do each day, such as brushing your teeth or eating a meal. When you go to the hospital or your doctor's office, bring all your current medicines in their original boxes or bottles. If you can't do that, bring an up-to-date list of your medicines. Do not stop taking a prescription medicine unless your doctor tells you to. Doing so could make your condition worse. Do not share medicines. Let your doctor and pharmacist know of any allergies you have. Taking prescription medicines with alcohol, street drugs, herbs, supplements, or even some gcgu-kfi-mhajvrn medicines can be harmful. Talk to your doctor or pharmacist before using any of these things while taking a prescription medicine. When filling your prescriptions, try using the same pharmacy for all your medicines. If not, let the pharmacist know what medicines you are already on. Keep medicines out of the reach of children and pets. Do not use medicine that has or that doesn't look or smell right. Get rid of it properly. To find out the right way to get rid of medicine: Call your [facility] or [facility] government's household trash and recycling service and ask if a drug take-back program is available in your community. Call your local pharmacy and ask the right way to get rid of the medicine. Go to http://www.fda.gov/ForConsumers/ConsumerUpdates/ufd256332 to learn how to get rid of medicines safely. Using Generic Medicines Medicines have brand names and generic (chemical) names. When a medicine is first made, it is sold only under its brand name. Later, it can be made and sold as a generic. Generic medicines cost less than brand-name medicines and most work just as well. Most people can use the generic medicine instead of the brand-name medicine, unless their doctor says otherwise. [facility], [address] [place] [address]. All rights reserved. This information is not intended as a substitute for professional medical care. Always follow your healthcare professional's instructions. Coping with Your Diagnosis of a Chronic Health Condition If you have a chronic health condition, you have a problem that may not go away over time. Heart disease, asthma, arthritis, and diabetes are just a few of the chronic conditions that exist. Right now, these conditions have no known cure. But you can take an active role in managing your health. Coping with Your Diagnosis If you've just learned about your health condition, you may be angry, depressed, or afraid. Or you might feel relieved just to know what's wrong. Even if you've known about your health problem for a while, adjusting to it can be hard. But learning about your condition can help you cope. Look for books at your local library. If you have access to a computer, check the Internet. Or contact a group that focuses on your specific problem. Accepting Change Change is hard for most people. Yet right now you may be facing many changes. What you eat or the way you work may change. Your moods, and even your symptoms, might vary from day to day. Although it isn't easy, learning to accept change can help you feel more in control. Taking Control Feeling you have control can make living with your condition easier. Discuss treatment options withyour health care provider. The more you know, the more active you can be in your care. Moving Forward You may wonder whether you will be able to do the things you've always done. That depends on your age, the condition you have, and your goals. To make the most of each day, try to build caring relationships, be active, and eat right. Also, do your best to keep a sense of humor. [facility], [address] [place] [address], [place] [address]. All rights reserved. This information is not intended as a substitute for professional medical care. Always follow your healthcare professional's instructions. Taking an Active Role in Your Medicines Take the time to learn about your medicine. For instance, why are you taking it? What does it do? Work with your doctor or other health care providers to get the answers you need. Talk to your pharmacist about how to take each medicine, and ask for a fact sheet on each one. Ask Questions About Your Medicine What is the name of the medicine? Why do I need to take it? When should I take it? How should I take it: with water? with food? on an empty stomach? How much do I take? What do I do if I miss a dose? What side effects could it cause and which ones should I call the doctor about? Are there any foods or medicines I should avoid while taking this medicine? Keeping track of your medications? Name of medicine: Taken for: Dose: Time(s) to take it: Take an Active Role Fill all your prescriptions at the same pharmacy. This keeps your medicine history in one place. Talk to the pharmacist. Make sure you understand how to take each medicine. Ask for a fact sheet about each one. Tell your doctor and pharmacist about all the prescription and qosq-zdc-wsanlsn medicines you take.This includes vitamins and herbal remedies. Tell your doctor and pharmacist if you have any medical conditions or allergies to any medicine or food, or if you are or . Keep a list of all your medicines. Use the sample to the right as a guide for the type of information needed. [address] [address]. All rights reserved. This information is not intended as a substitute for professional medical care. Always follow your healthcare professional's instructions. documented in this encounter Progress Notes * Sandra Rasheed MD - 06/20/2023 2:29 PM EDT SUBJECTIVE: Mildred Moser is a 77 year old female. Chief Complaint Patient presents with Hospital Follow-Up Hospital Follow-Up Recent Admission: Patient was recently admitted to [facility] on 05/31/23. The date of discharge was 06/07/23. Discharge report received and reviewed. HPI: Brief Clinical History Ms. Moser is a 77 year old woman last seen in Family Medicine 2 weeks ago (05-31-23). She is not duefor eval of any conditions. Admitted to [facility] 05/31/23-06/07/23 with shortness of breath. Was seen here and oxygen was 85% and wassent to the ED. Found to have rhinovirus and right hilar pneumonia. Treated with IV ceftriaxone anddoxycycline, Duonebs, oxygen, and steroids. Her spironolactone was held due to hyponatremia. Her torsemide was held and then her legs started swelling so she requested it to be restarted. Was told tohold her spironolactone for one week but states she resumed it at the direction of pulmonary at visit the day of discharge. Her Arnuity and Anora were also resumed. She states her left leg is still much more swollen than the right. Has been wearing compression stockings that help but they still get swollen at night. She is taking torsemide 20 mg daily and 40 mg on MWF as well as the spironolactone. Breathing is doing better. Has been using her CPAP at night. Has been using oxygen mostly just whenneeded and not continuously. 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 She does still smoke. States she never smokes around her oxygen and shuts off the concentrator when smoking. Did discuss she should not smoke in the house at all with oxygen there. Sugar was 125 this morning. States her sugars have been running good. She was given a lot of insulin while she was admitted an her sugars were in the 70s and she did not feel well. Was given lorazepam to sleep in the hospital. States it calmed her down and helped her to sleep better. Was given a couple pills to take home and has taken them. Is not anxious very often but mind has been racing at night when she goes to sleep and has been waking up a lot. Feels she needs something to help her to sleep. Is compliant with CPAP. Patient Active Problem List Diagnosis Code Hypertension with goal blood pressure less than 140/80 I10 Advanced directives, counseling/discussion Z71.89 Central retinal vein occlusion H34.8192 Hypertensive retinopathy H35.039 Persistent insomnia G47.00 Tobacco use disorder F17.200 Family history of ischemic heart disease Z82.49 OMARI (obstructive sleep apnea) G47.33 COPD, group D, by GOLD 2017 classification ([facility]) J44.9 Allergy to iodinated contrast Z91.041 Type 2 diabetes mellitus with hemoglobin A1c goal of less than 8.0% ([facility]) E11.9 Gastric ulcer K25.9 MGUS (monoclonal gammopathy of unknown significance) D47.2 Centrilobular emphysema ([facility]) J43.2 Nocturnal hypoxemia G47.34 Diabetes mellitus type 2 with peripheral artery disease ([facility]) E11.51 Coronary artery disease involving [place] coronary artery of [place] heart without angina pectoris I25.10 Lung nodule R91.1 Gastro-esophageal reflux disease without esophagitis K21.9 Type 2 diabetes mellitus with stage 3b chronic kidney disease, without long-term current use of insulin ([facility]) E11.22, N18.32 Hypertensive heart and kidney disease with chronic diastolic congestive heart failure and stage 3b chronic kidney disease ([facility]) I13.0, I50.32, N18.32 Pulmonary hypertension ([facility]) I27.20 Type 2 diabetes mellitus with diabetic cataract ([facility]) E11.36 Dyslipidemia, goal LDL below 70 E78.5 Constipation K59.00 Immunization not carried out because of patient decision Z28.20 Chronic diastolic congestive heart failure ([facility]) I50.32 Type 2 diabetes mellitus with diabetic neuropathy, without long-term current use of insulin ([facility]) E11.40 History of respiratory syncytial virus (RSV) infection Z86.19 Respiratory distress R06.03 Right flank pain R10.9 Current Outpatient Medications Medication Sig Dispense Refill [...] HOURS NEEDED FOR DYSPNEA 1080 mL 5 Losartan Potassium 50 MG Oral Tablet (Cozaar) TAKE ONE TABLET BY MOUTH EVERY DAY 100 Tablet 4 Spironolactone 25 MG Oral Tablet (Aldactone) TAKE ONE TABLET BY MOUTH ON MONDAY, MONDAY, AND MONDAY. TAKE ONE-HALF TABLET ON ALL OTHER DAYS OF THE WEEK (Patient taking differently: On hold until 06/13/23, then take 1 tab on Mon-Mon-Mon, and 1/2 tab on Xxb-Chkj-Glsrn-Mon.) 64 Tablet 3 Atorvastatin Calcium 40 MG Oral Tablet (Lipitor) Take 1 Tablet by mouth every day 90 Tablet 3 Omeprazole 20 MG Oral Capsule Delayed Release (PriLOSEC) Take 1 Capsule by mouth in the morning. 90Capsule 3 OneTouch Delica Plus [id number] Use to test blood sugar up to [...] at rest as needed) 1 Each 0 traZODone HCl 50 MG Oral Tablet (Desyrel) Take 1 Tablet by mouth at bedtime. 30 Tablet 5 Albuterol Sulfate HFA 108 (90 Base) MCG/ACT Inhalation Aerosol Solution INHALE TWO PUFFS BY MOUTH EVERY 4 HOURS NEEDED FOR COUGH, FOR SHORTNESS OF BREATH, OR WHEEZING 54 g 3 No current facility-administered medications for this visit. Current and discharge medications have been reconciled. Review of patient's allergies indicates: Allergen Reactions Iodinated Contrast Media Hives 48 hours post cardiac cath. No respiratory symptoms Influenza Vaccines Had flu symptoms x 1 month after injection Sulfa Antibiotics Unknown OBJECTIVE: BP 118/62 | Pulse 82 | Temp 36.1 C (97 F) (Tympanic) | Wt 80.7 kg (178 lb) | SpO2 95% | BMI 31.53 kg/m | BSA 1.89 m Review Of Systems: Skin: pt denies, new or changing moles, pigmentation change, rash, scaling, itching, bruising, lumps or bumps, hair changes, nail changes Eyes: negative Ears/Nose/Throat: pt denies:, deafness, tinnitus, vertigo Respiratory: as per hpi Cardiovascular: +as per hpi Gastrointestinal: pt. denies:, abdominal pain, bloating or excess gas, dysphagia, nausea, heartburn, blood in stool or black stools, constipation or change in bowel habits, diarrhea Genitourinary: pt denies:, nocturia, dysuria, and frequency Musculoskeletal: pt denies significant joint pain or stiffness Neurologic: pt denies:, headaches, syncope, and seizures Psychiatric: +sleep disturbance and anxiety at night Hematologic/Lymphatic/Immunologic: pt denies:, immunodeficiency, anemia, bruising, bleeding disorder, night sweats, chills, and weight loss Endocrine: +diabetes PHYSICAL EXAM: General: alert, no distress, well nourished, well developed, and chronically ill appearing Head: Normocephalic, No masses, lesions, tenderness or [...] adenopathy, no bruits Heart: regular rate & rhythm and no gallops Lungs: chest symmetric with normal AP diameter, no chest deformities noted, no chest wall tenderness, coarse sounds heard, decreased breath sounds Extremities: no clubbing, no cyanosis, trace edema of right ankle and 1+ edema of left distal lowerextremity and foot Neuro Exam: alert & oriented x 3 with fluent speech, no focal motor/sensory deficits, gait normal ASSESSMENT: Hospital discharge follow-up (Primary) - DISCH MED RECON CUR MED LIS Pneumonia of right middle lobe due to infectious organism--completed Abx. Check follow-up CXR in 1 month. - XR CHEST 2 VIEWS; Future; Expected date: 07/04/2023 Rhinovirus infection--resolved. Edema of left lower extremity--continue torsemide 20 mg daily and 40 mg MWF and spironolactone. Check Doppler to r/o DVT. - VASC DUPLEX VENOUS LE UNILAT Primary insomnia--start Trazodone for sleep. - traZODone HCl 50 MG Oral Tablet (Desyrel); Take 1 Tablet by mouth at bedtime. Hypertensive heart and kidney disease with chronic diastolic congestive heart failure and stage 3b chronic kidney disease (HCC)--blood pressure well controlled. GFR stable and goes between stage 3a and 3b. Check labs today. - CBC WITH WBC DIFFERENTIAL; Future; Expected date: 06/20/2023 - BASIC METABOLIC PANEL; Future; Expected date: 06/20/2023 Centrilobular emphysema (HCC)--continue Arnuity and Anora. Follows with pulmonary. Uses oxygen as needed at home. Often needs with exertion. COPD, group D, by GOLD 2017 classification ([facility])--as above Type 2 diabetes mellitus with stage 3b chronic kidney disease, without long-term current use of insulin ([facility])--diabetes controlled with glipizide ER 5 mg daily Nocturnal hypoxemia--compliant with CPAP. Hypomagnesemia--was repleted in the hospital. - MAGNESIUM; Future; Expected date: 06/20/2023 Follow Up: Return as scheduled. PLAN: Continue present medication(s): Begin medication(s): Trazodone 50 mg at bedtime for sleep. Discussed lorazepam is not appropriate for ocean transportation intermediary use and can cause respiratory depression. Study(ies) ordered: CXR in 1 month to follow-up resolution of pneumonia. Venous doppler to r/o DVT with left greater than right lower extremity swelling. Edema appears fairly mild today and has not taken her torsemide yet because of leaving the house for this appointment. Schedule labs: CBC w/diff, BMP, and magnesium. Patient education: Discussed smoking cessation, avoiding smoking while using oxygen, labs, and blood sugar control. Follow up as scheduled . I spent a total of 30-39 minutes (exact time 37 mins) minutes on the date of service in preparation, delivery, and documentation of the care provided to Mildred Moser excluding any time spent in performance of separately billed services. Sandra Rasheed MD documented in this encounter Nursing Notes * Makayla Johansen LPN - 06/20/2023 2:26 PM EDT Hospital follow up Not sleeping at night Wants meds to help sleep Legs swelling, does wear stockings that do help some. documented in this encounter Plan of Treatment Upcoming Encounters Date Type Department Care Team (Late st Contact Info) Description 06/21/2023 12:45 PM EDT Imaging Radiology [address] [place] [address] 07/27/2023 3:00 PM EDT Office Visit Cardiology, [facility] [address] [place] [address] Laquita Leija CRNP [address] [place] [address] 07/31/2023 1:30 PM EDT Nurse Only Ancillary [address] [place] [address] [place], Nurse [address] [place] [address] 09/08/2023 1:00 PM EDT Office Visit Gastroenterology [address] [place] [address] Jelly Mills CRNP [address] [place] [address] 09/13/2023 11:15 AM EDT Office Visit Ophthalmology, [facility] [address] [facility] [place] [address] Mulugeta Hodges DO [address] [facility] [place] [address] 09/27/2023 12:00 PM EDT Office Visit Pulmonary Medicine, [facility] [address] [facility] [place] [address] Nir Ward MD [address] [facility] [address] 10/31/2023 3:00 PM EDT Office Visit Family Medicine [address] [phone] Susy Ochoa PA-C [address] [place] [address] [place] [address] 02/28/2024 11:00 AM EST Imaging Radiology [address] [place] [address] 05/07/2024 4:00 PM EST Office Visit [address] Medicine [address] [phone] Sandra Rasheed MD [address] [place] [address] [place] [address] 05/17/2024 12:00 PM EST Office Visit [facility] Disorders [facility] [address] [facility] [place] [phone] Aminata Quiroz CRNP [address] [place] [address] Pending Results Name Type Priority Associated Diagnoses Date /Time CBC WITH WBC DIFFERENTIAL Lab Routine Hypertensive heart and kidney disease with chronic diastolic congestive heart failure and stage 3b chronic kidney disease (HCC) 06/20/2023 3:07 PM EDT BASIC METABOLIC PANEL Lab Routine Hypertensive heart and kidney disease with chronic diastolic congestive heart failure and stage 3b chronic kidney disease (HCC) 06/20/2023 3:07 PM EDT MAGNESIUM Lab Routine Hypomagnesemia 06/20/2023 3:07 PM EDT Scheduled Orders Name Type Priority Associated Diagnoses Orde r Schedule CBC WITH WBC DIFFERENTIAL Lab Routine Hypertensive heart and kidney disease with chronic diastolic congestive heart failure and stage 3b chronic kidney disease (HCC) Expected: 06/20/2023 (Approximate), Expires: 06/19/2024 BASIC METABOLIC PANEL Lab Routine Hypertensive heart and kidney disease with chronic diastolic congestive heart failure and stage 3b chronic kidney disease (HCC) Expected: 06/20/2023 (Approximate), Expires: 06/19/2024 MAGNESIUM Lab Routine Hypomagnesemia Expected: 06/20/2023 (Approximate), Expires: 06/19/2024 XR CHEST 2 VIEWS Medical Imaging Routine Pneumonia of right middle lobe due to infectious organism Expected: 07/04/2023, Expires: 07/19/2024 VASC DUPLEX VENOUS LE UNILAT Medical Imaging Routine Edema of left lower extremity Ordered: 06/20/2023 Scheduled Procedures Name Priority Associated Diagnoses Date/Ti [...] 11/03/2023 05/05/2023, 04/20, 04/10/2023, Additional history exists Influenza Vaccine (FLU shot) (Season Ended) 2023 12/03/2013 CKD PHOS USE SMARTSET 71937 03/27/2024/0 10/2023, 04/26/2022, 04/21/2021, Additional history exists Albumin/Creatinine Ratio 05/02/2024 024, 04/26/2022, 08/10/2020, Additional history exists Diabetic Foot Exam 05/02/2024 05/02/2023, 0 04/26/2022, 07/22/2021, Additional history exists CKD HGB USE SMARTSET 42551 05/05/202405/05, 05/02/2023, 05/02/2023, Additional history exists Diabetic Eye Exam 05/10/2024 05/10/2023, , 08/10/2022, Additional history exists Depression Screening 06/07/2024 06/08/2023 O2 ASSESSMENT COMPLETED IN PAST YEAR FOR [...] this encounter Medical Devices Implanted Type Area Traditional Chinese Herbalist Device Identifier Shelf Expiration Date Model / Serial / Lot [employer] Tvt Device Implanted:Qty: 1 on 06/18/2013 at OR [facility] N/A: Bladder 02/17/2016 [id number] / / [id number] documented as of this encounter Visit Diagnoses Diagnosis Hospital discharge follow-up- Primary Other follow-up examination Pneumonia of right middle lobe due to infectious organism Rhinovirus infection Rhinovirus infection in conditions classified elsewhere and of unspecified site Edema of left lower extremity Edema Primary insomnia Persistent disorder of initiating or maintaining sleep Hypertensive heart and kidney disease with chronic diastolic congestive heart failure and stage 3b chronic kidney disease (HCC) Centrilobular emphysema (HCC) Other emphysema COPD, group D, by GOLD 2017 classification (HCC) Type 2 diabetes mellitus with stage 3b chronic kidney disease, without long-term current use of insulin (HCC) Nocturnal hypoxemia Hypoxemia Hypomagnesemia Disorders of magnesium metabolism documented in this encounter Advance Directives Healthcare Agents on File Name Relationship Healthcare Agent Relationship Communication PIERRE Espinoza Other - (no specific identity) Health Care Pulmonologist (appointed verbally by patient or by statute hierarchy) Care Teams Logistics Loss Prevention Manager Relationship Specialty Start Date End Date Sandra Rasheed MD [address] [place] [address] [place] [phone] PCP - General Family Medicine 06/05/15 documented as of this encounter"
--- OUTSIDE RECORDS SUMMARY | 2023-08-01 09:45 | External Medical Summary | Summary of Care ---
Author Name Unknown Organization [facility] Address [address] [place] [address] Phone [phone] Care Team Providers Care Director Post Name Role Phone Sandra Rasheed MD Primary Care Provide r Reason for Visit * Reason Onset Date Comments Appointment 07/05/2023 Appointment need ed for chest xray Encounter Details Date Type Department Care Team (Late st Contact Info) Description 07/05/2023 Telephone Family Medicine [address] [phone] Sandra Rasheed MD [address] [place] [phone] Appointment (Appointment needed for chest ... Allergies Active Allergy Reactions Criticality Noted Date Comments Influenza Vaccines 01/06/2015 Had flu symptoms x 1 month after injection Iodinated Contrast Media High 09/01/2016 Hives 48 hours post cardiac cath. No respiratory symptoms Sulfa Antibiotics Unknown 02/22/2013 documented as of this encounter (statuses as of 07/06/2023) Medications Medication Sig Dispensed Refills Start Date [...] tab on Mon-Mon-Mon, and 1/2 tab on Uwc-Asfq-Uxgmz-Mon., Informant: At Discharge, Reported on 06/08/2023 Atorvastatin [...] 3 12/26/2022 4 Active OneTouch Delica Plus [id number] :Type 2 diabetes mellitus with hemoglobin A1c [...] less than 8.0% ([facility]) TAKE ONE TABLET BY MOUTH EVERY MORNING 100 Tablet 1 05/17/2023 5 Active oxygen IN GAS 1 LPM bled through autoCPAP 10-20 cm H2O 1 Each 0 06/07/2023 Active Additional Information Patient taking differently: 2 L/min(Oxygen) Nasal, 1 LPM bled through autoCPAP 10-20 cm H2O, 2LPM with exertion, 1 LPM at rest as needed, Reported on 06/08/2023 documented as of this encounter (statuses as of 07/06/2023) Active Problems Problem Noted Date Diagnosed Date [...] nodule 08/14/2019 Coronary artery disease invo lving [place] coronary artery of [place] heart without angina pectoris 08/30/2018 Diabetes mellitus [...] as of this encounter (statuses as of 07/06/2023) Resolved Problems Problem Noted Date Diagnosed Date [...] as of this encounter (statuses as of 07/06/2023) Immunizations Name Administration Dates Next Due HEP [...] Telephone Encounter - Adia Hardin OSA - 07/06/2023 4:02 PM EDT CXR scheduled, pt aware. * Telephone Encounter - Cha Mcclendon RN - 07/05/2023 12:43 PM EDT Patient called and is to scheduled a chest xray per Dr. Rasheed, patient will be in to see ortho on 07/13/23 at 1230 and would like if possible to do it the same day. Please call patient back with appointment. documented in this encounter Plan of Treatment Upcoming Encounters Date Type Department Care Team (Late st Contact Info) Description 07/13/2023 11:55 AM EDT Imaging Radiology [address] [place] [address] 07/13/2023 12:30 PM EDT Office Visit Orthopaedics [address] [place] [phone] Emanuel Cano MD [address] [place] [address] 07/27/2023 3:00 PM EDT Office Visit Cardiology, [facility] 132 [place] [address] Laquita Leija CRNP 132 [place] [address] 07/31/2023 1:30 PM EDT Nurse Only Ancillary [address] [place] [address] [place], Nurse [address] [place] [address] 09/08/2023 1:00 PM EDT Office Visit Gastroenterology [address] [place] [address] Jelly Mills CRNP [address] [place] [address] 09/13/2023 11:15 AM EDT Office Visit Ophthalmology, [facility] 132 [place] [address] Mulugeta Hodges DO [address] [place] [address] 09/27/2023 12:00 PM EDT Office Visit Pulmonary Medicine, [facility] [address] [place] [address] Nir Ward [facility] [address] [facility] [address] 10/31/2023 3:00 PM EDT Office Visit [address] [phone] Susy Ochoa PA-C [address] [place] [address] [place] [address] 02/28/2024 11:00 AM EST Imaging Radiology [address] [place] [address] 05/07/2024 4:00 PM EST Office Visit [address] [place] [phone] Sandra Rasheed MD [address] [place] [address] [place] [address] 05/17/2024 12:00 PM EST Office Visit Sleep Disorders Ctr [address] [place] [phone] Aminata Quiroz CRNP 132 [facility] [place] [address] Scheduled Procedures Name Priority Associated Diagnoses Date/Ti [...] Additional history exists CKD PHOS USE SMARTSET 44230 03/27/2024 01/0 10/2023, 04/26/2022, 04/21/2021, Additional history exists Albumin/Creatinine Ratio 05/02/2024 024, 04/26/2022, 08/10/2020, Additional history exists Diabetic Foot Exam 05/02/2024 05/02/2023, 0 04/26/2022, 07/22/2021, Additional history exists Diabetic Eye Exam 05/10/2024 05/10/2023, , 08/10/2022, Additional history exists Depression Screening 06/07/2024 06/08/2023 CKD HGB USE SMARTSET 14802 06/19/202406/19, 06/20/2023, 05/05/2023, Additional history exists O2 [...] this encounter Medical Devices Implanted Type Area Straw Hat Plunger Operator Device Identifier Shelf Expiration Date Model / Serial / Lot Gynecare Tvt Device Implanted:Qty: 1 on 06/18/2013 at OR [facility] N/A: Bladder 02/17/2016 [id number] / / [id number] documented as of this encounter Advance Directives Healthcare Agents on File Name Relationship Healthcare Agent Relationship Communication PIERRE Espinoza Other - (no specific identity) Health Care Engraving Supervisor (appointed verbally by patient or by statute hierarchy) Care Teams Director Post Relationship Specialty Start Date End Date Sandra Rasheed MD [address] [place] [address] [place] [phone] PCP - General Family Medicine 06/05/15 documented as of this encounter
--- OUTSIDE RECORDS SUMMARY | 2023-08-01 09:45 | External Medical Summary | Summary of Care ---
Author Name Unknown Organization [facility] Address [address] [place] [address] Phone [phone] Care Team Providers Care Woolen Suiting Shrinker Name Role Phone Sandra Rasheed MD Primary Care Provide r Reason for Visit * Reason Onset Date Comments Follow Up 06/29/2023 Encounter Details Date Type Department Care Team (Late st Contact Info) Description 06/29/2023 Telephone Family Medicine [address] [phone] Sandra Rasheed MD [address] [place] [address] [place] [address] Follow Up Allergies Active Allergy Reactions Criticality [...] tab on Mon-Mon-Mon, and 1/2 tab on Bah-Ranq-Nkhri-Mon., Informant: At Discharge, Reported on 06/08/2023 Atorvastatin [...] 3 12/26/2022 4 Active OneTouch Delica Plus [id number] :Type 2 diabetes mellitus with hemoglobin A1c goal of less than 8.0% ([facility]) Use to test blood sugar up to twice daily. Dx E11.9 200 Each 3 01/11/2023 Active OneTouch Verio In Vitro Strip (Glucose Blood)Indications:Ty pe 2 diabetes mellitus with hemoglobin A1c goal of less than 8.0% ([facility]) USE TO TEST BLOOD SUGAR UP TO TWICE DAILY 200 Strip 2 02/22/2023 5 Active Nebulizer/Tubing/Sindy thpiece KitIndications:COPD, group D, by GOLD 2017 classification ([facility]) Replacement requested as hers isn't delivering [...] by GOLD 2017 classification ([facility]) 1 dose inhaled every evening. Rinse [...] of less than 8.0% ([facility]) TAKE ONE TABLET BY MOUTH EVERY [...] nodule 08/14/2019 Coronary artery disease invo lving [place] coronary artery of [place] heart without angina pectoris 08/30/2018 Diabetes mellitus [...] Miscellaneous Notes * Telephone Encounter - Paty Rai LPN [facility] [address] [place] [address] Laquita Leija CRNP 132 [place] [address] 07/31/2023 1:30 PM EDT Nurse Only Ancillary [address] [place] [address] [place], Nurse Annual [address] [place] [address] 09/08/2023 1:00 PM EDT Office Visit Gastroenterology [address] [place] [address] Jelly Mills CRNP [address] [place] [address] 09/13/2023 11:15 AM EDT Office Visit Ophthalmology, [facility] [address] [place] [address] Mulugeta Hodges DO [address] [place] [address] 09/27/2023 12:00 PM EDT Office Visit Pulmonary Medicine, [facility] [address] [place] [address] Nir Ward MD [address] [place] [address] 10/31/2023 3:00 PM EDT Office Visit Family Medicine [address] [place] [phone] Susy Ochoa PA-C [address] [place] [address] [place] [address] 02/28/2024 11:00 AM EST Imaging Radiology [address] 132 [facility] [place] [address] 05/07/2024 4:00 PM EST Office Visit Family Medicine [address] [place] [phone] Sandra Rasheed MD [address] [place] [address] [place] [address] 05/17/2024 12:00 PM EST Office Visit Sleep Disorders Ctr [facility] [address] [facility] [place] [phone] Aminata Quiroz CRNP 132 [facility] [place] [address] Scheduled Procedures Name Priority Associated Diagnoses Date/Ti [...] Additional history exists CKD PHOS USE SMARTSET 21194 03/27/2024/0 10/2023, 04/26/2022, 04/21/2021, Additional history exists Albumin/Creatinine Ratio 05/02/202405/02/ 024, 04/26/2022, 08/10/2020, Additional history exists Diabetic Foot Exam 05/02/2024 05/02/2023, 0 04/26/2022, 07/22/2021, Additional history exists Diabetic Eye Exam 05/10/2024 05/10/2023, , 08/10/2022, Additional history exists Depression Screening 06/07/2024 06/08/2023 CKD HGB USE SMARTSET 57556 06/19/202406/19, 06/20/2023, 05/05/2023, Additional history exists O2 [...] this encounter Medical Devices Implanted Type Area Building Operator Device Identifier Shelf Expiration Date Model / Serial / Lot Gynecare Tvt Device Implanted:Qty: 1 on 06/18/2013 at OR [facility] N/A: Bladder 02/17/2016 [id number] / / [id number] documented as of this encounter Advance Directives Healthcare Agents on File Name Relationship Healthcare Agent Relationship Communication PIERRE Espinoza Other - (no specific identity) Health Care Maxillofacial Prosthetics Dentist (appointed verbally by patient or by statute hierarchy) Care Teams Woolen Suiting Shrinker Relationship Specialty Start Date End Date Sandra Rasheed MD [address] [place] [address] [place] [phone] PCP - General Family Medicine 06/05/15 documented as of this encounter
[2023-08-01] MEDS: LANTUS PER UNIT CHARGE SQ ONE (09:46)
--- OUTSIDE RECORDS SUMMARY | 2023-08-01 09:46 | External Medical Summary ---
Author Name Unknown Address Unknown Organization K01:[facility] [address] [place] [address] Laboratory Report Ordering Provider Test Date Status LOUISE HEADLEY 06/20/2023 15:07:07 Final Observation Date Value Abnormality Reference (Units ) Status BUN 06/20/2023 15:07:07 21 Above high normal 6-20 (mg/dL) Final Creatinine 06/20/2023 15:07:07 1.2 Above high normal 0.5-1.0 (mg/dL) Final Glomerular filtration rate/1.73 sq M.predicted [Volume Rate/Area] in Serum, Plasma or Blood by Creatinine-based formula (CKD-EPI) 06/20/2023 15:07:07 46 Below low normal >=60 (mL/min) Final eGFR is calculated based on the CKD-EPI 2020 equation Sodium 06/20/2023 15:07:07 135 135-146 (m mol/L) Final Potassium 06/20/2023 15:07:07 4.0 3.5-5.1 (m mol/L) Final Cl 06/20/2023 15:07:07 99 98-107 (mm ol/L) Final CO2 06/20/2023 15:07:07 25 22-32 (mmo l/L) Final Anion gap 06/20/2023 15:07:07 11 7-15 (mmol /L) Final Glucose 06/20/2023 15:07:07 194 Above high normal 70 -120 (mg/dL) Final Calcium 06/20/2023 15:07:07 9.1 8.4-10.2 ( mg/dL) Final Performing Location [facility] - [address] [place] [address]
--- OUTSIDE RECORDS SUMMARY | 2023-08-01 09:46 | External Medical Summary | Summary of Care ---
Author Name Unknown Organization [facility] Address [address] [place] [address] Phone [phone] Care Team Providers Care Package Clerk Name Role Phone Sandra Rasheed MD Primary Care Provide r Reason for Visit * Reason Onset Date Comments Oxygen Assessment 06/06/2023 NPO Encounter Details Date Type Department Care Team (Late st Contact Info) Description 06/06/2023 Telephone Sleep Disorders Ctr [facility] [address] [place] [phone] Aminata Quiroz CRNP 132 [facility] [place] [address] Oxygen Assessment (NPO) Allergies Active Allergy Reactions Criticality Noted Date Comments Influenza Vaccines 01/06/2015 Had flu symptoms x 1 month after injection Iodinated Contrast Media High 09/01/2016 Hives 48 hours post cardiac cath. No respiratory symptoms Sulfa Antibiotics Unknown 02/22/2013 documented as of this encounter (statuses as of 06/19/2023) Medications Medication Sig Dispensed Refills Start Date [...] tab on Mon-Mon-Mon, and 1/2 tab on Ogt-Rafe-Ylhwg-Mon., Informant: At Discharge, Reported on 06/08/2023 Atorvastatin [...] 3 12/26/2022 4 Active OneTouch Delica Plus [id number] s:Type 2 diabetes mellitus with hemoglobin A1c [...] 02/22/2023 Active Torsemide 10 MG Oral Tablet (Demadex)Indication [...] at rest as needed, Reported on 06/08/2023 meclizine (ANTIVERT) 25 MG TabletIndications:Ami little script for 8 tablets to use x [address] [facility] 06-14-18 Take 1 Tab by mouth 3 times a day as needed for Dizziness. Indications: Given script for 8 tablets to use x 5 days at [place] [facility] 06-14-18 90 Tab 0 10/31/2018 4 Discontinu ed(Medicat ion List Clean Up) Olopatadine HCl 0.2 % Ophthalmic Solution (Pataday) Instill 1 Drop into both eyes daily. 5 mL 12 08/06/2020 4 Discontinu ed(Medicat ion List Clean Up) B Complex Oral Capsule Take 1 Capsule by mouth in the morning. 0 4 Discontinu ed(Medicat ion List Clean Up) Dicyclomine HCl 10 MG Oral Capsule (Bentyl) Take 1 Capsule by mouth 2 times a day as needed for Cramping. 60 Capsule 1 03/24/2023 4 Discontinu ed(Medicat ion List Clean Up) Lidocaine 5 % External Patch (Lidoderm) Place 1 Patch topically on the skin daily. 0 05/06/2023 4 Discontinu ed(Medicat ion List Clean Up) oxyCODONE HCl 5 MG Oral Tablet (Oxy IR) Take 1 Tablet by mouth every 6 hours as needed. 0 05/06/2023 4 Discontinu ed(Medicat ion List Clean Up) documented as of this encounter (statuses as of 06/19/2023) Active Problems Problem Noted Date Diagnosed Date [...] nodule 08/14/2019 Coronary artery disease invo lving [place] coronary artery of [place] heart without angina pectoris 08/30/2018 Diabetes mellitus [...] as of this encounter (statuses as of 06/19/2023) Resolved Problems Problem Noted Date Diagnosed Date Resolved Date Acute respiratory failure with hypoxia 05/31/2023 06/14/2023 [...] Cirrhosis of liver 05/17/2018 9 Pulmonary hypertension 01/31/2017 04/30 /2021 Cirrhosis of liver without ascites 10/25/2016 05/17/2018 CA (dyspnea on exertion) 07/25/2016 Localized edema 07/25/2016 03/05/2019 COPD exacerbation 01/22/2016 06/14/2023 Vitreous hemorrhage 05/25/2015 10/11/19 Retinal edema 01/06/2015 [...] as of this encounter (statuses as of 06/19/2023) Immunizations Name Administration Dates Next Due HEP [...] encounter Miscellaneous Notes * Telephone Encounter - Nir Ward MD - 06/19/2023 4:42 PM EDT New order for pulmonary stress testing and evaluation for portable oxygen concentrator with conserving device placed. * Telephone Encounter - Aminata Quiroz CRNP - 06/16/2023 1:13 PM EDT Forwarding to Dr. Ward who manages her in Pulmonary Medicine. * Telephone Encounter - Laura Wilson RN - 06/13/2023 6:17 PM EDT FYI: Patient reporting her portable tanks are too heavy for her to carry when leaving home, so she is not taking them with her when leaving home. * Telephone Encounter - Latrice Stafford LPN - 06/07/2023 10:20 AM EDT This info will be passed along to the pt at her appt. * Telephone Encounter - Aminata Quiroz CRNP - 06/07/2023 9:20 AM EDT Noct ox aCPAP 10-20/RA 05/28/2023: SpO2 luis angel 83% with 28 minutes <89%, low HR 26, mean HR 74, test time 8 hours, rAHI 0.1, leak 27 L/min, p95% 13 cm H2O Please advise: Has home oxygen concentrator - order to be sent to [facility] to bleed into CPAP Periods of low heart rate into the high 20's was noted. No prior extended monitor completed per Epic. Spoke to Luis Abreu PA-C Cardiology. Advised 7 day Zio Patch. Refer to Cardiology if testing indicates. * Telephone Encounter - Latrice Stafford LPN - 06/06/2023 8:39 AM EDT NPO report received and given to provider for review documented in this encounter Plan of Treatment Upcoming Encounters Date Type Department Care Team (Late st Contact Info) Description 06/20/2023 2:20 PM EDT Office Visit Family Medicine [address] [place] [phone] Sandra Rasheed MD [address] [place] [address] [place] [address] 07/27/2023 3:00 PM EDT Office Visit Cardiology, [facility] [place] [address] Laquita Leija CRNP [address] [place] [address] 07/31/2023 1:30 PM EDT Nurse Only Ancillary [address] [place] [address] [place], Nurse [address] [place] [address] 09/08/2023 1:00 PM EDT Office Visit Gastroenterology [address] [place] [address] Jelly Mills CRNP [address] [place] [address] 09/13/2023 11:15 AM EDT Office Visit Ophthalmology, [facility] [place] [address] Mulugeta Hodges, [address] [place] [address] 09/27/2023 12:00 PM EDT Office Visit Pulmonary Medicine, [facility] 132 [facility] [place] [address] Nir Ward MD [address] [facility] [place] [address] 10/31/2023 3:00 PM EDT Office Visit Family Medicine [address] [place] [phone] Susy Ochoa PA-C [address] [place] [address] [place] [address] 02/28/2024 11:00 AM EST Imaging Radiology [address] 132 [facility] [place] [address] 05/07/2024 4:00 PM EST Office Visit Family Medicine [address] [place] [phone] Sandra Rasheed MD [address] [place] [address] [place] [address] 05/17/2024 12:00 PM EST Office Visit Sleep Disorders Ctr [facility] [address] [facility] [place] [phone] Aminata Quiroz CRNP [address] [place] [address] Scheduled Orders Name Type Priority Associated Diagnoses Orde r Schedule EXTERNAL EKG 2 TO 7 DAYS Holter Routine Bradycardia Expected: 06/07/2023 (Approximate), Expires: 06/06/2024 PULMONARY STRESS TESTING Procedures Routine Chronic respiratory failure with hypoxia (HCC) Expected: 06/20/2023, Expires: 07/18/2024 Scheduled Procedures Name Priority Associated Diagnoses Date/Ti [...] Ended) 2023 12/03/2013 CKD PHOS USE SMARTSET 17642 03/27/2024 01/0 10/2023, 04/26/2022, 04/21/2021, Additional history exists Albumin/Creatinine Ratio 05/02/2024 024, 04/26/2022, 08/10/2020, Additional history exists Diabetic Foot Exam 05/02/2024 05/02/2023, 0 04/26/2022, 07/22/2021, Additional history exists CKD HGB USE SMARTSET 89195 05/05/202405/05, 05/02/2023, 05/02/2023, Additional history exists Diabetic Eye Exam 05/10/2024 05/10/2023, , 08/10/2022, Additional history exists Depression Screening 06/07/2024 06/08/2023 O2 ASSESSMENT COMPLETED IN PAST YEAR FOR COPD 06/12/2024 06/13/2023 COLONOSCOPY-EVERY 3 YRS AGES 18-100 07/13/2025 07/13/2022, [...] this encounter Medical Devices Implanted Type Area Dock Guard Device Identifier Shelf Expiration Date Model / Serial / Lot Gynecare Tvt Device Implanted:Qty: 1 on 06/18/2013 at OR [facility] N/A: Bladder 02/17/2016 [id number] / / [id number] documented as of this encounter Visit Diagnoses Diagnosis Bradycardia- Primary Other specified cardiac dysrhythmias Obstructive sleep apnea Obstructive sleep apnea (adult) (pediatric) Nocturnal hypoxemia Hypoxemia Need for case management follow-up Chronic respiratory failure with hypoxia (HCC) Chronic respiratory failure documented in this encounter Advance Directives Healthcare Agents on File Name Relationship Healthcare Agent Relationship Communication PIERRE Espinoza Other - (no specific identity) Health Care Calliope Player (appointed verbally by patient or by statute hierarchy) Care Teams Package Clerk Relationship Specialty Start Date End Date Sandra Rasheed MD [address] [place] [address] [place] [address] PCP - General Family Medicine 06/05/15 documented as of this encounter
--- OUTSIDE RECORDS SUMMARY | 2023-08-01 09:46 | External Medical Summary | Summary of Care ---
Author Name Unknown Organization [facility] Address [address] [place] [address] Phone [phone] Care Team Providers Care Dental Technology Advisor Name Role Phone Sandra Rasheed MD Primary Care Provide r Encounter Details Date Type Department Care Team (Late st Contact Info) Description 06/13/2023 2:30 PM EDT Home Visit Care Coordination and Integration [address], [place] [id number] Krystal Tapia [facility] [address] [place] [address] Need for case management follow-up* Allergies Active Allergy Reactions Criticality Noted Date Comments Influenza Vaccines 01/06/2015 Had flu symptoms x 1 month after injection Iodinated Contrast Media High 09/01/2016 Hives 48 hours post cardiac cath. No respiratory symptoms Sulfa Antibiotics Unknown 02/22/2013 documented as of this encounter (statuses as of 06/14/2023) Medications Medication Sig Dispensed Refills Start Date [...] tab on Mon-Mon-Mon, and 1/2 tab on Uvu-Mqax-Brirv-Mon., Informant: At Discharge, Reported on 06/08/2023 Atorvastatin [...] 3 12/26/2022 4 Active OneTouch Delica Plus [id number] :Type 2 diabetes mellitus with hemoglobin A1c goal of less than 8.0% ([facility]) Use to test blood sugar up to twice daily. Dx E11.9 200 Each 3 01/11/2023 Active OneTouch Verio In Vitro Strip (Glucose Blood)Indications:Ty pe 2 diabetes mellitus with hemoglobin A1c goal of less than 8.0% ([facility]) USE TO TEST BLOOD SUGAR UP TO TWICE DAILY 200 Strip 2 02/22/2023 5 Active Nebulizer/Tubing/Sindy thpiece KitIndications:COPD, group D, by GOLD 2017 classification ([facility]) Replacement requested as hers isn't delivering medicine [...] GOLD 2017 classification ([facility]) 1 dose inhaled every evening. Rinse mouth [...] less than 8.0% ([facility]) TAKE ONE TABLET BY MOUTH EVERY MORNING [...] as of this encounter (statuses as of 06/14/2023) Active Problems Problem Noted Date Diagnosed Date History of respiratory syncytial virus (RSV) inf ection 05/31/2023 Acute respiratory failure with hypoxia 4 Respiratory distress 05/31/2023 Right flank pain 05/31/2023 [...] annual screening with LDCT in 12 months COPD exacerbation 01/22/2016 Persistent insomnia 04/28/2015 Central retinal vein occlusion 01/06/2015 Hypertensive retinopathy 01/06/2015 Advanced directives, counseling/discussion 04/02 Overview: No, Advance Directive brochure given to patient at prior appointment. Hypertension with goal blood pressure less than 140/80 Tobacco use disorder documented as of this encounter (statuses as of 06/14/2023) Resolved Problems Problem Noted Date Diagnosed Date [...] on exertion) 07/25/2016 Localized edema 07/25/2016 03/05/2019 Vitreous hemorrhage 05/25/2015 10/11/19 18 Retinal edema [...] as of this encounter (statuses as of 06/14/2023) Immunizations Name Administration Dates Next Due HEP [...] Sign Reading Time Taken Comments Blood Pressure 124/64 06/13/2023 3:32 PM EDT Pulse 62 06/13/2023 3:32 PM EDT Temperature 36.8 C (98.2 F) 06/13/2023 3:32 PM ED T Respiratory Rate 18 06/13/2023 3:32 PM EDT Oxygen Saturation 96% 06/13/2023 3:32 PM EDT Inhaled Oxygen Concentration - - Weight - - Height - - Body Mass Index - - documented in this encounter Progress Notes * Sandra Rasheed MD - 06/14/2023 8:28 AM EDT Again, she needs to be seen for her swelling. I cannot take care of this over the phone. It may be best for her to go to the ER to r/o DVT. She should not be smoking if she is using oxygen all the time and with leaving the house with oxygen as well. * Sandra Rasheed MD - 06/13/2023 5:01 PM EDT She needs to be seen for her legs. I do not feel lorazepam is safe with her lungs. It causes too much respiratory depression. Can discuss more appropriate anxiety medication at her appointment. * Laura Wilson RN - 06/13/2023 4:55 PM EDT Message received from Krystal ASHLEY, following home visit: "Med review: requesting refill of lorazepam 1mg - they gave it to her at [facility]. She's been having difficulty sleeping. [place] it was helpful for her anxiety and helped with her breathing. Only taking half a tab. " Please advise.... CH[facility] also reporting - "Patient reports open area to LLE - reports she was seeping fluid. Following SAIMA diet. States she was wearing Dr. Saeed support stocking up until today. Edema to LLE much worse than right. Reports feeling tightness up to the knee. Difficulty bending toes and notes decreased sensation.Top of foot and underside of toes are very swollen. Notes feeling warmth to her feet - "but they usually feel like ice cubes" +3 pitting edema very significant to top of right foot. Pedal pulse is very strong in let foot." * Krystal Tapia, [facility] - 06/13/2023 3:06 PM EDT Telemedicine visit: No [facility] ([facility]) documentation: Patient reports open area to LLE - reports she was seeping fluid. Following SAIMA diet. States she was wearing Dr. Saeed support stocking up until today. Edema to LLE much worse than right. Reports feeling tightness up to the knee. Difficulty bending toes and notes decreased sensation.Top of foot and underside of toes are very swollen. Notes feeling warmth to her feet - "but they usually feel like ice cubes" +3 pitting edema very significant to top of left foot. Pedal pulse is very strong in let foot. Patient reports torsemide was DC while in hosp. States day after it was stopped, she started retaining fluid. States they restarted it the next day, but ever since she has been having swelling. Reports having pain at the base of her spine on the left side radiating up and down the left leg. States when she woke this AM "It was all I could do to walk". By the time of today, patient reprots it has eased up and she is able to move more freely. Reports she has a very high pain tolerance, so when she says she's having pain, it's for real. States pain last night "was almost as bad as baring a child". Reji following since prior to [facility] - patient reports she was to be DC from , however when the nurse came for the appt she recommended PCP or ED f/u. Patient did go to [facility] then transferred to ED at [facility] dx pneumonia. [facility] provided patient with "The Breather" that she can increase the resistance for inspiration and expiration to complete breathing exercises. Patient is very pleased with the device. Credits this to to her success for living with COPD. Note patient continues to smoke. Monitors her spO2 closely. Reports she had a cigarette 45min prior to [facility] arrival - 96% Son is very involved and supportive. Close friends live just down the road and can assist as needed. Med review: requesting refill of lorazepam 1mg - they gave it to her at [facility]. She's been having difficulty sleeping. [place] it was helpful for her anxiety and helped with her breathing. Only taking half a tab. documented in this encounter Plan of Treatment Upcoming Encounters Date Type Department Care Team (Late st Contact Info) Description 06/20/2023 2:20 PM EDT [facility] [address] [place] [address] [place] [phone] Sandra Rasheed MD [address] [place] [address] [place] [address] 07/27/2023 3:00 PM EDT Office Visit Cardiology, [facility] [address] [facility] [place] [address] Laquita Leija CRNP [address] [place] [address] 07/31/2023 1:30 PM EDT Nurse Only Ancillary [address] [place] [address] [place], Nurse Annual [address] [place] [address] 09/08/2023 1:00 PM EDT Office Visit Gastroenterology [address] [place] [address] Jelly Mills CRNP [address] [place] [address] 09/13/2023 11:15 AM EDT Office Visit Ophthalmology, [facility] [address] [place] [address] Mulugeta Hodges, [address] [place] [address] 09/27/2023 12:00 PM EDT Office Visit Pulmonary Medicine, [facility] [address] [place] [address] Nir Ward [facility] [address] [facility] [address] 10/31/2023 3:00 PM EDT Office Visit Family Medicine [address] [place] [phone] Susy Ochoa PA-C [address] [place] [address] [place] [address] 02/28/2024 11:00 AM EST Imaging Radiology [address] [facility] [place] [address] 05/07/2024 4:00 PM EST Office Visit Family [address] [place] [phone] Sandra Rasheed MD [address] [place] [address] [place] [address] 05/17/2024 12:00 PM EST Office Visit Sleep Disorders C[facility] [address] [facility] [place] [phone] Aminata Quiroz CRNP [address] [facility] [place] [address] Scheduled Procedures Name Priority Associated Diagnoses Date/Ti me COLONOSCOPY FLEXIBLE PROXIMAL DIAGNOSTIC Recall History of colon polyps Health Maintenance Due Date Last Done Comments Zoster Vaccines (1 of 2) 1996 *ADVANCE DIRECTIVE NOT ON FILE 09/01/2018 DISCUSS TOBACCO CESSATION (REFER TO SMARTSET #3291) 12/02/2021 12/02/2020 COVID-19 Vaccine ( season) 2022 Influenza Vaccine (FLU shot) (#1) 2022 12/03/2013 DXA Scan 07/24/2023 07/23/2020, 07/20, 03/25/2013 HbA1c 10/31/2023 05/02/2023, 10/18, 04/26/2022, Additional history exists GFR 11/03/2023 05/05/2023, 04/20, 04/10/2023, Additional history exists CKD PHOS USE SMARTSET 21762 03/27/2024 01/0 10/2023, 04/26/2022, 04/21/2021, Additional history exists Albumin/Creatinine Ratio 05/02/2024 024, 04/26/2022, 08/10/2020, Additional history exists Diabetic Foot Exam 05/02/2024 05/02/2023, 0 04/26/2022, 07/22/2021, Additional history exists CKD HGB USE SMARTSET 06602 05/05/202405/05, 05/02/2023, 05/02/2023, Additional history exists Diabetic [...] encounter Medical Devices Implanted Type Area Medical Assembly Device Identifier Shelf Expiration Date Model / Serial / Lot Gynecare Tvt Device Implanted:Qty: 1 on 06/18/2013 at OR [facility] N/A: Bladder 02/17/2016 [id number] / / [id number] documented as of this encounter Visit Diagnoses Diagnosis Need for case management follow-up- Primary documented in this encounter Advance Directives Healthcare Agents on File Name Relationship Healthcare Agent Relationship Communication PIERRE Espinoza Other - (no specific identity) Health Care Planning Consultant (appointed verbally by patient or by statute hierarchy) Care Teams Dental Technology Advisor Relationship Specialty Start Date End Date Sandra Rasheed MD [address] [place] [address] [place] [address] PCP - General Family Medicine 06/05/15 documented as of this encounter
--- OUTSIDE RECORDS SUMMARY | 2023-08-01 09:46 | External Medical Summary ---
Author Name Unknown Address Unknown Organization K01:[facility] - [address] [facility] [place] [address] Laboratory Report Ordering Provider Test Date Status LOUISE HEADLEY 06/20/2023 15:07:07 Final Observation Date Value Abnormality Reference (Units ) Status SYNC LEUKOCYTES IN BLOOD BY AUTOMATED COUNT 06/20/2023 15:07:07 4.51 4.00-10.80 (K/uL) Final Segs 06/20/2023 15:07:07 61.2 40.0-75.0 (%) Final Lymphs % 06/20/2023 15:07:07 29.0 18.0-42.0 (%) Final Monos 06/20/2023 15:07:07 6.9 1.0-11.0 (%) Final Eosinophils 06/20/2023 15:07:07 1.6 0.0-6.0 (%) Final Basos 06/20/2023 15:07:07 1.1 0.0-2.0 (%) Final Immature Granulocyte, Percent 06/20/2023 15:07:07 0.2 0.0-2.0 (%) Final Absolute Segs 06/20/2023 15:07:07 2.76 1.80-7.70 (K/uL) Final Lymphs, absolute 06/20/2023 15:07:07 1.31 1.00-4.80 (K/ul) Final Monos, Abs 06/20/2023 15:07:07 0.31 0.00-1.10 (K/uL) Final Eos, Abs 06/20/2023 15:07:07 0.07 0.00-0.70 (K/uL) Final Basos, Abs 06/20/2023 15:07:07 0.05 0.00-0.20 (K/uL) Final Immature Granulocytes, Number 06/20/2023 15:07:07 0.01 0.00-0.20 (K/uL) Final Performing Location [facility] - [address] [facility] [address]
--- OUTSIDE RECORDS SUMMARY | 2023-08-01 09:46 | External Medical Summary | Summary of Care ---
Author Name Unknown Organization [facility] Address [address] [place] [address] Phone [phone] Care Team Providers Care Salesforce Administrator Name Role Phone Sandra Rasheed MD Primary Care Provide r Reason for Visit * Reason Comments Outpatient Testing Encounter Details Date Type Department Care Team (Late st Contact Info) Description 06/20/2023 3:10 PM EDT Laboratory Laboratory [address] [place] [phone] [address] [place] [address] Hypertensive heart and kidney disease with chronic diastolic congestive heart failure and stage 3b chronic kidney disease (HCC); Hypomagnesemia Allergies Active Allergy Reactions Criticality Noted [...] tab on Mon-Mon-Mon, and 1/2 tab on Exo-Rnmf-Xxwpo-Mon., Informant: At Discharge, Reported on 06/08/2023 Atorvastatin [...] 3 12/26/2022 4 Active OneTouch Delica Plus [id number] :Type 2 diabetes mellitus with hemoglobin A1c goal of less than 8.0% ([facility]) Use to test blood sugar up to twice daily. Dx E11.9 200 Each 3 01/11/2023 Active OneTouch Verio In Vitro Strip (Glucose Blood)Indications:Ty pe 2 diabetes mellitus with hemoglobin A1c goal of less than 8.0% ([facility]) USE TO TEST BLOOD SUGAR UP TO TWICE DAILY 200 Strip 2 02/22/2023 5 Active Nebulizer/Tubing/Sindy thpiece KitIndications:COPD, group D, by GOLD 2017 classification ([facility]) Replacement requested as hers isn't delivering medicine well and is old. DME: [facility] 1 Kit 0 02/22/2023 Active Anoro Ellipta 62.5-25 MCG/ACT Inhalation Aerosol Powder Breath Activated (umeclidinium-vilant jyoti) Inhale 1 dose by mouth every morning. 180 Each 3 02/22/2023 Active Arnuity Ellipta 200 MCG/ACT Inhalation Aerosol Powder Breath Activated (fluticasone Furoate)Indications: COPD, group D, by GOLD 2017 classification ([facility]) 1 dose inhaled every evening. Rinse mouth [...] hemoglobin A1c goal of less than 8.0% ([facility]) TAKE ONE TABLET BY MOUTH EVERY MORNING [...] nodule 08/14/2019 Coronary artery disease invo lving [place] coronary artery of [place] heart without angina pectoris 08/30/2018 Diabetes mellitus [...] Description 06/21/2023 12:45 PM EDT Imaging Radiology [address] [place] [address] 07/27/2023 3:00 PM EDT Office Visit Cardiology, [facility] [address] [place] [address] Laquita Leija CRNP 132 [place] [address] 07/31/2023 1:30 PM EDT Nurse Only Ancillary [address] [place] [address] Jonaey, Nurse Annual [address] [place] [address] 09/08/2023 1:00 PM EDT Office Visit Gastroenterology [address] [place] [address] Jelly Mills CRNP [address] [place] [address] 09/13/2023 11:15 AM EDT Office Visit Ophthalmology, [facility] 132 [facility] [place] [address] Mulugeta Hodges DO [address] [place] [address] 09/27/2023 12:00 PM EDT Office Visit Pulmonary Medicine, [facility] 132 [facility] [place] [address] iNr Ward MD [facility] [address] 10/31/2023 3:00 PM EDT Office Visit Family Medicine [address] [place] [phone] Susy Ochoa PA-C [address] [place] [address] [place] [address] 02/28/2024 11:00 AM EST Imaging Radiology [address] 132 [facility] [place] [address] 05/07/2024 4:00 PM EST Office Visit Family Medicine [address] [place] [phone] Sandra Rasheed MD [address] [place] [address] [place] [address] 05/17/2024 12:00 PM EST Office Visit Sleep Disorders Ctr [facility] [address] [place] [phone] Aminata Quiroz CRNP [address] [place] [address] Pending Results Name Type Priority Associated Diagnoses [...] Lab Routine Hypomagnesemia 06/20/2023 3:07 PM EDT CBC Lab Routine Hypertensive heart and kidney disease with chronic diastolic congestive heart failure and stage 3b chronic kidney disease (HCC) 06/20/2023 3:07 PM EDT DIFFERENTIAL, AUTOMATED Lab Routine Hypertensive heart and kidney disease with chronic diastolic congestive heart failure and stage 3b chronic kidney disease (HCC) 06/20/2023 3:07 PM EDT Scheduled Procedures Name Priority Associated Diagnoses [...] Ended) 2023 12/03/2013 CKD PHOS USE SMARTSET 30116 03/27/2024 01/0 10/2023, 04/26/2022, 04/21/2021, Additional history exists Albumin/Creatinine Ratio 05/02/2024 024, 04/26/2022, 08/10/2020, Additional history exists Diabetic Foot Exam 05/02/2024 05/02/2023, 0 04/26/2022, 07/22/2021, Additional history exists CKD HGB USE SMARTSET 65197 05/05/202405/05, 05/02/2023, 05/02/2023, Additional history exists Diabetic [...] this encounter Medical Devices Implanted Type Area Entry Level Web Developer Device Identifier Shelf Expiration Date Model / Serial / Lot Gynecare Tvt Device Implanted:Qty: 1 on 06/18/2013 at OR [facility] N/A: Bladder 02/17/2016 [id number] / / [id number] documented as of this encounter Visit Diagnoses Diagnosis Hypertensive heart and kidney disease with chronic diastolic congestive heart failure and stage 3b chronic kidney disease (HCC) Hypomagnesemia Disorders of magnesium metabolism documented in this encounter Advance Directives Healthcare Agents on File Name Relationship Healthcare Agent Relationship Communication PIERRE Espinoza Other - (no specific identity) Health Care Loop Tender (appointed verbally by patient or by statute hierarchy) Care Teams Salesforce Administrator Relationship Specialty Start Date End Date Sandra Rasheed MD [address] [place] [address] [place] [address] PCP - General Family Medicine 06/05/15 documented as of this encounter
--- OUTSIDE RECORDS SUMMARY | 2023-08-01 09:46 | External Medical Summary | Summary of Care ---
Author Name Unknown Organization [facility] Address [address] [place] [address] Phone [phone] Care Team Providers Care Electrician Name Role Phone Sandra Rasheed MD Primary Care Provide r Reason for Visit * Reason Onset Date Comments Advice 06/12/2023 Encounter Details Date Type Department Care Team (Late st Contact Info) Description 06/12/2023 Telephone Family Medicine [address] [phone] Sandra Rasheed MD [address] [place] [address] [place] [address] Advice Allergies Active Allergy Reactions Criticality [...] tab on Mon-Mon-Mon, and 1/2 tab on Cyr-Npbv-Ocfqp-Mon., Informant: At Discharge, Reported on 06/08/2023 Atorvastatin [...] 3 12/26/2022 4 Active OneTouch Delica Plus [id number] :Type 2 diabetes mellitus with hemoglobin A1c [...] KitIndications:COPD, group D, by GOLD 2017 classification ([facility]) Replacement requested as hers isn't delivering medicine well and is old. DME: [facility] 1 Kit 0 02/22/2023 Active Anoro Ellipta 62.5-25 MCG/ACT Inhalation Aerosol Powder Breath Activated (umeclidinium-vilant jyoti) Inhale 1 dose by mouth every morning. 180 Each 3 02/22/2023 Active Arnuity Ellipta 200 MCG/ACT Inhalation Aerosol Powder Breath Activated (fluticasone Furoate)Indications: COPD, group D, by GOLD 2017 classification ([facility]) 1 dose inhaled every evening. [...] nodule 08/14/2019 Coronary artery disease invo lving [place] coronary artery of [place] heart without angina pectoris 08/30/2018 Diabetes mellitus [...] Telephone Encounter - Cha Mcclendon RN - 06/14/2023 9:02 AM EDT Spoke to patient she states swelling is "a little better", but left foot is still worse than right,she said home health was in they did note a sore on the Left ankle and placed a bandaid on it, and will keep an eye on that area. They will also be back on and they were bringing some different compression socks to try. Patient still denies any redness, no SOB or chest pain. Patient statesher SPO2 is running 93-95% without her oxygen. Patient states Karon was also in yesterday. PHYSICAL THERAPY is coming today and HH will be back this week. If they have any concerns they are to contact us. Message sent to Laura to make her aware Reason for Call: Advice Contact: Telephone Call Contact Type: Advice Outcome: see note Face to face time spent with Patient (minutes): 0 Total Time including non face to face (minutes): 20 * Telephone Encounter - Cha Mcclendon RN - 06/14/2023 8:45 AM EDT Tried to call patient for update, unable to leave a message, I will try to call her later today to see what HH thought about her swelling. Sent Laura message as FYI. * Telephone Encounter - Sandra Rasheed MD - 06/12/2023 4:27 PM EDT Noted. Thank you * Telephone Encounter - Cha Mcclendon RN - 06/12/2023 3:43 PM EDT Patient called just to updated us , patient was on for hospital follow up with Dr. Lerma and patient refused to see him. Patient states both legs are swollen but left leg is twice as big as the right one. Patient denies any red or warm to touch areas. Patient states when she walks it does have a "soreness" not a pain when walking. Patient states breathing is better but with ambulation she uses o xygen. Patient states with ambulation o2 sat is 90. Patient states she was given blood thinner injections in her abdomen at the hospital. Patient got discharge 06/06 Patient did reschedule hospital discharge with Dr. Rasheed on 06/19. Krystal is going in at 1pm and HH nurse will be there someone documented in this encounter Plan of Treatment Upcoming Encounters Date Type Department Care Team (Late st Contact Info) Description 06/20/2023 2:20 PM EDT Office Visit Family Medicine [address] [place] [phone] Sandra Rasheed MD [address] [place] [address] [place] [address] 07/27/2023 3:00 PM EDT Office Visit Cardiology, [facility] [address] [place] [address] Laquita Leija CRNP [address] [place] [address] 07/31/2023 1:30 PM EDT Nurse Only Ancillary [address] [place] [address] [place], Nurse Annual [address] [place] [address] 09/08/2023 1:00 PM EDT Office Visit Gastroenterology [address] [place] [address] Jelly Mills CRNP [address] [place] [address] 09/13/2023 11:15 AM EDT Office Visit Ophthalmology, [facility] [address] [place] [address] Mulugeta Hodges DO [address] [place] [address] 09/27/2023 12:00 PM EDT Office Visit Pulmonary Medicine, [facility] [place] [address] Nir Ward MD [address] [place] [address] 10/31/2023 3:00 PM EDT Office Visit Family Medicine [address] [place] [phone] Susy Ochoa PA-C [address] [place] [address] [place] [address] 02/28/2024 11:00 AM EST Imaging Radiology [address] 132 [facility] [place] [address] 05/07/2024 4:00 PM EST Office Visit Family Medicine [address] [place] [phone] Sandra Rasheed MD [address] [place] [address] [place] [address] 05/17/2024 12:00 PM EST Office Visit Sleep Disorders Ctr [facility] 132 [facility] [place] [phone] Aminata Quiroz CRNP 132 [facility] [place] [address] Scheduled Procedures Name Priority Associated Diagnoses Date/Ti [...] Ended) 2023 12/03/2013 CKD PHOS USE SMARTSET 59061 03/27/2024 01/0 10/2023, 04/26/2022, 04/21/2021, Additional history exists Albumin/Creatinine Ratio 05/02/2024 024, 04/26/2022, 08/10/2020, Additional history exists Diabetic Foot Exam 05/02/2024 05/02/2023, 0 04/26/2022, 07/22/2021, Additional history exists CKD HGB USE SMARTSET 85671 05/05/202405/05, 05/02/2023, 05/02/2023, Additional history exists Diabetic [...] this encounter Medical Devices Implanted Type Area Roll Capper Device Identifier Shelf Expiration Date Model / Serial / Lot Gynecare Tvt Device Implanted:Qty: 1 on 06/18/2013 at OR [facility] N/A: Bladder 02/17/2016 [id number] / / [id number] documented as of this encounter Advance Directives Healthcare Agents on File Name Relationship Healthcare Agent Relationship Communication PIERRE Espinoza Other - (no specific identity) Health Care Legal Paraprofessional (appointed verbally by patient or by statute hierarchy) Care Teams Electrician Relationship Specialty Start Date End Date Sandra Rasheed MD [address] [place] [address] [place] [phone] PCP - General Family Medicine 3/18/16 documented as of this encounter
--- OUTSIDE RECORDS SUMMARY | 2023-08-01 09:46 | External Medical Summary ---
Author Name Unknown Address Unknown Organization K01:[facility] - [address] [place] [address] Laboratory Report Ordering Provider Test Date Status LOUISE HEADLEY 06/20/2023 15:07:07 Final Observation Date Value Abnormality Reference (Units ) Status WBC, Total 06/20/2023 15:07:07 4.51 4.00-10.80 (K/uL) Final RBC 06/20/2023 15:07:07 4.30 3.85-5.15 (M/uL) Final Hemoglobin 06/20/2023 15:07:07 13.2 12.0-15.3 (g/dL) Final HCT 06/20/2023 15:07:07 39.8 36.0-45.2 (%) Final MCV 06/20/2023 15:07:07 92.6 81.5-97.5 (fL) Final MCH 06/20/2023 15:07:07 30.7 27.0-34.0 (pg) Final MCHC 06/20/2023 15:07:07 33.2 32.0-36.0 (g/dL) Final RDW 06/20/2023 15:07:07 14.2 11.5-15.5 (%) Final Platelets 06/20/2023 15:07:07 130 Below low normal 140-400 (K/uL) Final MPV 06/20/2023 15:07:07 10.0 6.6-11.1 (fL) Final Nucleated erythrocytes/100 leukocytes [Ratio] in Blood by Automated count 06/20/2023 15:07:07 0 <=0 (/100 WBCs) Final Performing Location [facility] - [address] [place] [address]
--- OUTSIDE RECORDS SUMMARY | 2023-08-01 09:46 | External Medical Summary ---
Author Name Unknown Address Unknown Organization K01:[facility] - [address] [place] [address] Laboratory Report Ordering Provider Test Date Status LOUISE HEADLEY 06/20/2023 15:07:07 Final Observation Date Value Abnormality Reference (Units ) Status Magnesium 06/20/2023 15:07:07 1.6 1.5-2.6 (m g/dL) Final Performing Location [facility] - [address] [place] [address]
--- OUTSIDE RECORDS SUMMARY | 2023-08-01 09:47 | External Medical Summary | Summary of Care ---
Author Name Unknown Organization [facility] Address [address] [place] [address] Phone [phone] Care Team Providers Care Concrete Mixing Plant Superintendent Name Role Phone Sandra Rasheed MD Primary Care Provide r Encounter Details Date Type Department Care Team (Late st Contact Info) Description 05/31/2023 Orders Only Family Medicine [address] [phone] Sandra Rasheed MD [address] [place], [place] [address] [phone] Allergies Active Allergy Reactions Criticality Noted Date Comments Influenza Vaccines 01/06/2015 Had flu symptoms x 1 month after injection Iodinated Contrast Media High 09/01/2016 Hives 48 hours post cardiac cath. No respiratory symptoms Sulfa Antibiotics Unknown 02/22/2013 documented as of this encounter (statuses as of 06/09/2023) Medications Medication Sig Dispensed Refills Start Date [...] 4 Active Spironolactone 25 MG Oral Tablet (Aldactone)Filomenatio ns:Hypertension goal BP (blood pressure) < 150/90,Localized edema TAKE ONE TABLET BY MOUTH ON MONDAY, MONDAY, AND MONDAY. TAKE ONE-HALF TABLET ON ALL OTHER DAYS OF THE WEEK 64 Tablet 3 12/19/2022 4 Active Additional Information Patient taking differently: On hold until 06/13/23, then take 1 tab on Mon-Mon-Mon, and 1/2 tab on Dao-Xbxw-Jnzkp-Mon., Informant: At Discharge, Reported on 06/08/2023 Atorvastatin [...] 3 12/26/2022 4 Active OneTouch Delica Plus [id number] :Type 2 diabetes mellitus with hemoglobin A1c [...] MORNING 100 Tablet 1 05/17/2023 5 Active documented as of this encounter (statuses as of 06/09/2023) Active Problems Problem Noted Date Diagnosed Date [...] as of this encounter (statuses as of 06/09/2023) Resolved Problems Problem Noted Date Diagnosed Date [...] as of this encounter (statuses as of 06/09/2023) Immunizations Name Administration Dates Next Due HEP [...] the money to buy more. Never true 06/08/19 24 Within the past 12 months, t he food you bought just didn't last and you didn't have money to get more. Never true 06/08/2023 Sex and Gender Information Value Date Recorded [...] Team (Late st Contact Info) Description 06/12/2023 12:20 PM EDT Office Visit Family Medicine [address] [place] [phone] Jordi Lerma MD [address] [place] [address] [place] [address] 06/13/2023 1:00 PM EDT Home Visit Care Coordination and Integration [address] [facility], [place] [phone] Krystal Tapia [facility] [address] [place] [address] [place] [address] 07/27/2023 3:00 PM EDT Office Visit Cardiology, [facility] [place] [address] Laquita Leija CRNP [address] [place] [address] 07/31/2023 1:30 PM EDT Nurse Only Ancillary [address] [place] [address] Hank, Nurse Annual Wellness [address] [place] [address] [place] [address] 09/08/2023 1:00 PM EDT Office Visit Gastroenterology [address] [place] [address] Jelly Mills CRNP [address] [place] [address] 09/13/2023 11:15 AM EDT Office Visit Ophthalmology, [facility] 132 [facility] [place] [address] Mulugeta Hodges DO [address] [place] [address] 09/27/2023 12:00 PM EDT Office Visit Pulmonary Medicine, [facility] 132 [facility] [place] [address] Nir Ward MD [facility] [address] 10/31/2023 3:00 PM EDT Office Visit Family Medicine [address] [place] [phone] Susy Ochoa PA-C [address] [place] [address] [place] [address] 02/28/2024 11:00 AM EST Imaging Radiology [address] 132 [facility] [place] [address] 05/07/2024 4:00 PM EST Office Visit Family Medicine [address] [place] [phone] Sandra Rasheed MD [address] [place] [address] [place] [address] 05/17/2024 12:00 PM EST Office Visit Sleep Disorders Ctr [facility] 132 [facility] [place] [phone] Aminata Quiroz CRNP [address] [place] [address] Scheduled Procedures Name Priority Associated Diagnoses Date/Ti [...] Additional history exists CKD PHOS USE SMARTSET 43266 03/27/2024 01/0 10/2023, 04/26/2022, 04/21/2021, Additional history exists Albumin/Creatinine Ratio 05/02/2024 024, 04/26/2022, 08/10/2020, Additional history exists Diabetic Foot Exam 05/02/2024 05/02/2023, 0 04/26/2022, 07/22/2021, Additional history exists CKD HGB USE SMARTSET 01898 05/05/202405/05, 05/02/2023, 05/02/2023, Additional history exists Diabetic Eye Exam 05/10/2024 05/10/2023, , 08/10/2022, Additional history exists O2 ASSESSMENT COMPLETED IN PAST YEAR FOR COPD 06/06/2024 06/07/2023 Depression Screening 06/07/2024 06/08/2023 COLONOSCOPY-EVERY 3 YRS AGES 18-100 07/13/2025 07/13/2022, [...] this encounter Medical Devices Implanted Type Area Proposition Player Device Identifier Shelf Expiration Date Model / Serial / Lot Gynecare Tvt Device Implanted:Qty: 1 on 06/18/2013 at OR [facility] N/A: Bladder 02/17/2016 [id number] / / [id number] documented as of this encounter Procedures Procedure Name Priority Date/Time Associated Diagnosis Comments RADIOLOGY EXAM - US (IMAGES ONLY, NO REPORT) Routine 05/31/2023 10:00 PM EDT documented in this encounter Results * RADIOLOGY EXAM - US (IMAGES ONLY, NO REPORT) (05/31/2023 10:00 PM EDT) 05/31/2023 9:59 PM EDT Narrative Scheduling, Silent - 06/09/2023 5:29 PM EDT This is an imaging study not interpreted or resulted by a [facility] or [facility] contracted radiologist. Sandra NIEVESOUN D documented in this encounter Advance Directives Healthcare Agents on File Name Relationship Healthcare Agent Relationship Communication PIERRE Espinoza Other - (no specific identity) Health Care Help Desk Intern (appointed verbally by patient or by statute hierarchy) Care Teams Concrete Mixing Plant Superintendent Relationship Specialty Start Date End Date Sandra Rasheed MD [address] [place] [address] [place] [address] PCP - General Family Medicine 06/05/15 documented as of this encounter
--- OUTSIDE RECORDS SUMMARY | 2023-08-01 09:47 | External Medical Summary | Summary of Care ---
Author Name Unknown Organization [facility] Address [address] [place] [address] Phone [phone] Care Team Providers Care Machine Edge Bander Name Role Phone Sandra Rasheed MD Primary Care Provide r Encounter Details Date Type Department Care Team (Late st Contact Info) Description 06/13/2023 2:30 PM EDT Home Visit Care Coordination and Integration [address] [place], [place] [phone] Krystal Tapia [facility] [address] [place] [address] Need for case [...] tab on Mon-Mon-Mon, and 1/2 tab on Uug-Hnsw-Ijasl-Mon., Informant: At Discharge, Reported on 06/08/2023 Atorvastatin [...] 3 12/26/2022 4 Active OneTouch Delica Plus [id number] :Type 2 diabetes mellitus with hemoglobin A1c goal of less than 8.0% ([facility]) Use to test blood sugar up to twice daily. Dx E11.9 200 Each 3 01/11/2023 Active OneTouch Verio In Vitro Strip (Glucose Blood)Indications:Ty pe 2 diabetes mellitus with hemoglobin A1c goal of less than 8.0% ([facility]) USE TO TEST BLOOD SUGAR UP TO TWICE DAILY 200 Strip 2 02/22/2023 5 Active Nebulizer/Tubing/Sindy thpiece KitIndications:COPD, group D, by GOLD 2017 classification ([facility]) Replacement requested as hers isn't delivering medicine well and is old. DME: [facility] 1 Kit 0 02/22/2023 Active Anoro Ellipta 62.5-25 MCG/ACT Inhalation Aerosol Powder Breath Activated (umeclidinium-vilant jyoti) Inhale 1 dose by mouth every morning. 180 Each 3 02/22/2023 Active Arnuity Ellipta 200 MCG/ACT Inhalation Aerosol Powder Breath Activated (fluticasone Furoate)Indications: COPD, group D, by GOLD 2017 classification ([facility]) 1 dose inhaled every evening. Rinse [...] goal of less than 8.0% ([facility]) TAKE ONE TABLET BY MOUTH EVERY [...] nodule 08/14/2019 Coronary artery disease invo lving [place] coronary artery of [place] heart without angina pectoris 08/30/2018 Diabetes mellitus [...] Progress Notes * Sandra Rasheed MD - 06/13/2023 5:01 PM EDT She needs to be seen for her legs. I do not feel lorazepam is safe with her lungs. It causes too much respiratory depression. Can discuss more appropriate anxiety medication at her appointment. * Laura Wilson RN - 06/13/2023 4:55 PM EDT Message received from Krystal Archer, following home visit: "Med review: requesting refill of lorazepam 1mg - they gave it to her at [facility]. She's been having difficulty sleeping. [place] it was helpful for her anxiety and [...] let foot." * Krystal Tapia, [facility] Bulk Tank Car Unloader - 06/13/2023 3:06 PM EDT Telemedicine visit: No [facility] Bulk Tank Car Unloader (TIFFANY) documentation: Patient reports open area to [...] do to walk". By the time of HV today, patient reprots it has eased up and she is able to move more freely. Reports she has a very high pain tolerance, so when she says she's having pain, it's for real. States pain last night "was almost as bad as baring a child". Chantal[facility]annah following since prior to hosp admin - patient reports she was to be DC from , however when the nurse came for the appt she recommended PCP or ED f/u. Patient did go to [facility] then transferred to ED at [facility] dx pneumonia. [facility] provided patient with "The Breather" that [...] - they gave it to her at [facility]. She's been having difficulty sleeping. [place] it was helpful for her anxiety and helped with her breathing. Only taking half a tab. documented in this encounter Plan of Treatment Upcoming Encounters Date Type Department Care Team (Late st Contact Info) Description 06/20/2023 2:20 PM EDT Office Visit Family Medicine [address] [place] [phone] Sandra Rasheed MD [address] [place] [address] [place] [address] 07/27/2023 3:00 PM EDT Office Visit Cardiology, [facility] [address] [place] [address] Laquita Leija CRNP [address] [place] [address] 07/31/2023 1:30 PM EDT Nurse Only Ancillary [address] [place] [address] Hank, Nurse [facility] Wellness [address] [place] [address] [place] [address] 09/08/2023 1:00 PM EDT Office Visit Gastroenterology [address] [place] [address] Jelly Mills CRNP 132 [facility] [place] [address] 09/13/2023 11:15 AM EDT Office Visit Ophthalmology, [facility] 132 [facility] [place] [address] Mulugeta Hodges DO [address] [place] [address] 09/27/2023 12:00 PM EDT Office Visit Pulmonary Medicine, [address] [place] [address] Nir Ward MD [address] [place], [place] [address] [address] 10/31/2023 3:00 PM EDT Office Visit Family Medicine [address] [place] [phone] Susy Ochoa PA-C [address] [place] [address] [place] [address] 02/28/2024 11:00 AM EST Imaging Radiology [address] 132 [facility] [place] [address] 05/07/2024 4:00 PM EST Office Visit Family Medicine [address] [place] [phone] Sandra Rasheed MD [address] [place] [address] [place] [address] 05/17/2024 12:00 PM EST Office Visit Sleep Disorders Ctr [address] [place] [phone] Aminata Quiroz CRNP [address] [place] [address] Scheduled Procedures Name Priority Associated Diagnoses Date/Ti [...] Additional history exists CKD PHOS USE SMARTSET 55068 03/27/2024 01/0 10/2023, 04/26/2022, 04/21/2021, Additional history exists Albumin/Creatinine Ratio 05/02/2024 024, 04/26/2022, 08/10/2020, Additional history exists Diabetic Foot Exam 05/02/2024 05/02/2023, 0 04/26/2022, 07/22/2021, Additional history exists CKD HGB USE SMARTSET 37126 05/05/202405/05, 05/02/2023, 05/02/2023, Additional history exists Diabetic [...] this encounter Medical Devices Implanted Type Area Film Sound Coordinator Device Identifier Shelf Expiration Date Model / Serial / Lot Gynecare Tvt Device Implanted:Qty: 1 on 06/18/2013 at OR [facility] N/A: Bladder 02/17/2016 [id number] / / [id number] documented as of this encounter Visit Diagnoses Diagnosis Need for case management follow-up- Primary documented in this encounter Advance Directives Healthcare Agents on File Name Relationship Healthcare Agent Relationship Communication PIERRE Espinoza Other - (no specific identity) Health Care Textile Screen Printer (appointed verbally by patient or by statute hierarchy) Care Teams Machine Edge Bander Relationship Specialty Start Date End Date Sandra Rasheed MD [address] [place] [address] [place] [address] PCP - General Family Medicine 06/05/15 documented as of this encounter
--- OUTSIDE RECORDS SUMMARY | 2023-08-01 09:47 | External Medical Summary | Summary of Care ---
Author Name Unknown Organization [facility] Address [address] [place] [address] Phone [phone] Care Team Providers Care Block Cutter Name Role Phone Sandra Rasheed MD Primary Care Provide r Encounter Details Date Type Department Care Team (Late st Contact Info) Description 06/13/2023 2:30 PM EDT Home Visit Care Coordination and Integration [address] [place], [place] [phone] Krystal Tapia Community Health Distribution Superintendent [address] [place] [address] [place] [address] Allergies Active Allergy Reactions Criticality Noted Date Comments Influenza Vaccines 01/06/2015 Had flu symptoms x 1 month after injection Iodinated Contrast Media High 09/01/2016 Hives 48 hours post cardiac cath. No respiratory symptoms Sulfa Antibiotics Unknown 02/22/2013 documented as of this encounter (statuses as of 06/13/2023) Medications Medication Sig Dispensed Refills Start Date [...] 4 Active Spironolactone 25 MG Oral Tablet (Aldactone)Carlos ns:Hypertension goal BP (blood pressure) < 150/90,Localized edema TAKE ONE TABLET BY MOUTH ON MONDAY, MONDAY, AND MONDAY. TAKE ONE-HALF TABLET ON ALL OTHER DAYS OF THE WEEK 64 Tablet 3 12/19/2022 4 Active Additional Information Patient taking differently: On hold until 06/13/23, then take 1 tab on Mon-Mon-Mon, and 1/2 tab on Ssj-Ootf-Bcfjc-Mon., Informant: At Discharge, Reported on 06/08/2023 Atorvastatin [...] 3 12/26/2022 4 Active OneTouch Delica Plus [id number] :Type 2 diabetes mellitus with hemoglobin A1c [...] as of this encounter (statuses as of 06/13/2023) Active Problems Problem Noted Date Diagnosed Date History of respiratory syncytial virus (RSV) inf ection 05/31/2023 Acute respiratory failure with hypoxia Respiratory distress 05/31/2023 Right flank pain 05/31/2023 [...] as of this encounter (statuses as of 06/13/2023) Resolved Problems Problem Noted Date Diagnosed Date [...] as of this encounter (statuses as of 06/13/2023) Immunizations Name Administration Dates Next Due HEP [...] documented in this encounter Progress Notes * Krystal Tapia, Community Health Distribution Superintendent - 06/13/2023 3:06 PM EDT Telemedicine visit: No Community Health Distribution Superintendent (TIFFANY) documentation: Patient reports open area to [...] a child". Reji following since prior to hosp admin - patient reports she was to be DC from , however when the nurse came for the appt she recommended PCP or ED f/u. Patient did go to [facility] then transferred to ED at [facility] dx pneumonia. [facility] provided patient with "The Breather" that she [...] - they gave it to her at [facility]. She's been having difficulty sleeping. [place] it was helpful for her anxiety and helped with her breathing. Only taking half a tab. documented in this encounter Plan of Treatment Upcoming Encounters Date Type Department Care Team (Late st Contact Info) Description 06/20/2023 2:20 PM EDT Office Visit Family Medicine [facility] [address] [place] [address] [place] [phone] Sandra Rasheed MD [address] [place] [address] [place] [address] 07/27/2023 3:00 PM EDT Office Visit Cardiology, [place] [address] [place] [address] Laquita Leija CRNP [address] [place] [address] 07/31/2023 1:30 PM EDT Nurse Only Ancillary [address] [place] [address] [place], Nurse Annual [address] [place] [address] 09/08/2023 1:00 PM EDT Office Visit Gastroenterology [address] [place] [address] Jelly Mills CRNP [address] [place] [address] 09/13/2023 11:15 AM EDT Office Visit Ophthalmology, [facility] [address] [place] [address] Mulugeta Hodges, [address] [place] [address] 09/27/2023 12:00 PM EDT Office Visit Pulmonary Medicine, [facility] [place] [address] Nir Ward MD [address] [facility] [place] [address] 10/31/2023 3:00 PM EDT Office Visit Family Medicine [address] [place] [phone] Susy Ochoa PA-C [address] [place] [address] [place] [address] 02/28/2024 11:00 AM EST Imaging Radiology [address] [facility] [place] [address] 05/07/2024 4:00 PM EST Office Visit Family Medicine [address] [place] [phone] Sandra Rasheed MD [address] [place] [address] [place] [address] 05/17/2024 12:00 PM EST Office Visit [facility] [place] [phone] Aminata Quiroz CRNP [address] [place] [address] Scheduled Procedures Name Priority Associated Diagnoses Date/Ti [...] Additional history exists CKD PHOS USE SMARTSET 32658 03/27/2024 01/0 10/2023, 04/26/2022, 04/21/2021, Additional history exists Albumin/Creatinine Ratio 05/02/2024 024, 04/26/2022, 08/10/2020, Additional history exists Diabetic Foot Exam 05/02/2024 05/02/2023, 0 04/26/2022, 07/22/2021, Additional history exists CKD HGB USE SMARTSET 05640 05/05/202405/05, 05/02/2023, 05/02/2023, Additional history exists Diabetic [...] encounter Medical Devices Implanted Type Area Manager Media Relations Device Identifier Shelf Expiration Date Model / Serial / Lot Gynecare Tvt Device Implanted:Qty: 1 on 06/18/2013 at OR [facility] N/A: Bladder 02/17/2016 [id number] / / [id number] documented as of this encounter Advance Directives Healthcare Agents on File Name Relationship Healthcare Agent Relationship Communication PIERRE Espinoza Other - (no specific identity) Health Care Certified Retinal Angiographer (appointed verbally by patient or by statute hierarchy) Care Teams Block Cutter Relationship Specialty Start Date End Date Sandra Rasheed MD [address] [place] [address] [place] [phone] PCP - General Family Medicine 06/05/15 documented as of this encounter
--- OUTSIDE RECORDS SUMMARY | 2023-08-01 09:47 | External Medical Summary | Summary of Care ---
Author Name Unknown Organization [facility] Address [address] [place] [address] Phone [phone] Care Team Providers Care Building Wrecker Name Role Phone Sandra Rasheed MD Primary Care Provide r Encounter Details Date Type Department Care Team (Latest Contact Info) Description 05/31/2023 11:55 AM EDT - 05/31/2023 9:59 PM EDT Hospital Encounter Radiology Film File [address], [place] [phone] Discharge Disposition: Home - Self Care Allergies Active Allergy Reactions Criticality Noted Date Comments Influenza Vaccines 01/06/2015 Had flu symptoms x 1 month after injection Iodinated Contrast Media High 09/01/2016 Hives 48 hours post cardiac cath. No respiratory symptoms Sulfa Antibiotics Unknown 02/22/2013 documented as of this encounter (statuses as of 06/10/2023) Medications Medication Sig Dispensed Refills Start Date [...] tab on Mon-Mon-Mon, and 1/2 tab on Vgo-Lwzj-Khkzh-Mon., Informant: At Discharge, Reported on 06/08/2023 Atorvastatin [...] 3 12/26/2022 4 Active OneTouch Delica Plus [id number] :Type 2 diabetes mellitus with hemoglobin A1c [...] as of this encounter (statuses as of 06/10/2023) Active Problems Problem Noted Date Diagnosed Date [...] nodule 08/14/2019 Coronary artery disease invo lving [place] coronary artery of [place] heart without angina pectoris 08/30/2018 Diabetes mellitus [...] as of this encounter (statuses as of 06/10/2023) Resolved Problems Problem Noted Date Diagnosed Date [...] as of this encounter (statuses as of 06/10/2023) Immunizations Name Administration Dates Next Due HEP [...] 12:20 PM EDT Office Visit Family Medicine [address] [place] [phone] Jordi Lerma MD [address] [place] [address] [place] [address] 06/13/2023 1:00 PM EDT [facility] [address] [facility] [address] Krystal Tapia Community Health Forcer Maker [address] [place] [address] [place] [address] 07/27/2023 3:00 PM EDT Office Visit Cardiology, [facility] [place] [address] Laquita Leija CRNP [address] [place] [address] 07/31/2023 1:30 PM EDT Nurse Only Ancillary [address] [place] [address] Hank, Nurse [address] [place] [address] 09/08/2023 1:00 PM EDT Office Visit Gastroenterology [address] [place] [address] Jelly Mills CRNP [address] [place] [address] 09/13/2023 11:15 AM EDT Office Visit Ophthalmology, [facility] [place] [address] Mulugeta Hodges, DO [address] [place] [address] 09/27/2023 12:00 PM EDT Office Visit Pulmonary Medicine, [facility] [place] [address] Nir Ward MD [facility] [address] [place] [address] 10/31/2023 3:00 PM EDT Office Visit Family Medicine [address] [place] [phone] Susy Ochoa PA-C [address] [place] [address] [place] [address] 02/28/2024 11:00 AM EST Imaging Radiology [address] [facility] [place] [address] 05/07/2024 4:00 PM EST Office Visit Family Medicine [address] [place] [phone] Sandra Rasheed MD [address] [place] [address] [place] [address] 05/17/2024 12:00 PM EST Office Visit Sleep Disorders Ctr [facility] [place] [phone] Aminata Quiroz CRNP [address] [place] [address] Scheduled Procedures Name Priority Associated Diagnoses Date/Ti [...] Additional history exists CKD PHOS USE SMARTSET 08898 03/27/2024 01/0 10/2023, 04/26/2022, 04/21/2021, Additional history exists Albumin/Creatinine Ratio 05/02/2024 024, 04/26/2022, 08/10/2020, Additional history exists Diabetic Foot Exam 05/02/2024 05/02/2023, 0 04/26/2022, 07/22/2021, Additional history exists CKD HGB USE SMARTSET 62936 05/05/202405/05, 05/02/2023, 05/02/2023, Additional history exists Diabetic [...] this encounter Medical Devices Implanted Type Area Acetylene Cylinder Packing Mixer Device Identifier Shelf Expiration Date Model / Serial / Lot Gynecare Tvt Device Implanted:Qty: 1 on 06/18/2013 at OR [facility] N/A: Bladder 02/17/2016 [id number] / / [id number] documented as of this encounter Procedures Procedure Name Priority Date/Time Associated Diagnosis Comments RADIOLOGY EXAM - GENERAL RAD (IMAGES ONLY,NO REPORT) Routine 05/31/2023 11:55 AM EDT documented in this encounter Results * RADIOLOGY EXAM - GENERAL RAD (IMAGES ONLY,NO REPORT) (05/31/2023 11:55 AM EDT) 05/31/2023 11:5 5 AM EDT Narrative Scheduling, Silent - 06/09/2023 5:36 PM EDT This is an imaging study not interpreted or resulted by a [facility] or [facility] contracted radiologist. Sandra Rasheed MD RADIOLOGY (RA D GENERAL) documented in this encounter Advance Directives Healthcare Agents on File Name Relationship Healthcare Agent Relationship Communication PIERRE Espinoza Other - (no specific identity) Health Care Principal Consultant (appointed verbally by patient or by statute hierarchy) Care Teams Building Wrecker Relationship Specialty Start Date End Date Sandra Rasheed MD [address] [place] [address] [place] [address] PCP - General Family Medicine 06/05/15 documented as of this encounter
--- OUTSIDE RECORDS SUMMARY | 2023-08-01 09:47 | External Medical Summary | Summary of Care ---
Author Name Unknown Organization [facility] Address [address] [place] [address] Phone [phone] Care Team Providers Care Bed Manager Name Role Phone Sandra Rasheed MD Primary Care Provide r Encounter Details Date Type Department Care Team (Late st Contact Info) Description 06/13/2023 2:30 PM EDT Home Visit Care Coordination and Integration [address] [place], [place] [phone] Krystal Tapia [facility] [address] [place] [address] Need for case [...] tab on Mon-Mon-Mon, and 1/2 tab on Epu-Kqom-Jmdln-Mon., Informant: At Discharge, Reported on 06/08/2023 Atorvastatin [...] 3 12/26/2022 4 Active OneTouch Delica Plus [id number] :Type 2 diabetes mellitus with hemoglobin A1c [...] nodule 08/14/2019 Coronary artery disease invo lving [place] coronary artery of [place] heart without angina pectoris 08/30/2018 Diabetes [...] documented in this encounter Progress Notes * Laura Wilson RN - 06/13/2023 4:55 PM EDT Message received from Krystal ASHLEY, following home visit: "Med review: requesting refill of lorazepam 1mg - they gave it to her at [facility]. She's been having difficulty sleeping. [place] it was helpful for her anxiety and helped with her breathing. Only taking half a tab. " Please advise.... * Krystal Tapia Community Health M48/M60 Tank Driver - 06/13/2023 3:06 PM EDT Telemedicine visit: No Community Health M48/M60 Tank Driver (TIFFANY) documentation: Patient reports open area to [...] or ED f/u. Patient did go to [facility] then transferred to ED at [facility] dx pneumonia. [facility] provided patient with "The Breather" that [...] [facility]. She's been having difficulty sleeping. [place] it was helpful for her anxiety and helped with her breathing. Only taking half a tab. documented in this encounter Plan of Treatment Upcoming Encounters Date Type Department Care Team (Late st Contact Info) Description 06/20/2023 2:20 PM EDT Office Visit Family Medicine [address] [place] [phone] Sandra Rasheed MD [address] [place] [address] [place] [address] 07/27/2023 3:00 PM EDT Office Visit Cardiology, [facility] [address] [place] [address] Laquita Leija CRNP [address] [place] [address] 07/31/2023 1:30 PM EDT Nurse Only Ancillary [address] [place] [address] [place], Nurse Annual [address] [place] [address] 09/08/2023 1:00 PM EDT Office Visit Gastroenterology [address] [place] [address] Jelly Mills CRNP [address] [place] [address] 09/13/2023 11:15 AM EDT Office Visit Ophthalmology, [facility] [address] [place] [address] Mulugeta Hodges DO [address] [place] [address] 09/27/2023 12:00 PM EDT Office Visit Pulmonary Medicine, [facility] [address] [place] [address] Nir Ward MD [address] [place] [address] 10/31/2023 3:00 PM EDT Office Visit Family Medicine [address] [phone] Susy Ochoa PA-C [address] [place] [address] [place] [address] 02/28/2024 11:00 AM EST Imaging Radiology [address] [place] [address] 05/07/2024 4:00 PM EST Office Visit Family [address] [place] [phone] Sandra Rasheed MD [address] [place] [address] [place] [address] 05/17/2024 12:00 PM EST Office Visit Sleep Disorders Ctr [facility] [address] [place] [phone] Aminata Quiroz CRNP [address] [place] [address] Scheduled Procedures Name Priority Associated Diagnoses Date/Ti [...] Additional history exists CKD PHOS USE SMARTSET 99666 03/27/2024 01/0 10/2023, 04/26/2022, 04/21/2021, Additional history exists Albumin/Creatinine Ratio 05/02/2024 024, 04/26/2022, 08/10/2020, Additional history exists Diabetic Foot Exam 05/02/2024 05/02/2023, 0 04/26/2022, 07/22/2021, Additional history exists CKD HGB USE SMARTSET 24589 05/05/202405/05, 05/02/2023, 05/02/2023, Additional history exists Diabetic [...] this encounter Medical Devices Implanted Type Area Management Analyst Device Identifier Shelf Expiration Date Model / Serial / Lot Gynecare Tvt Device Implanted:Qty: 1 on 06/18/2013 at OR [facility] N/A: Bladder 02/17/2016 [id number] / / [id number] documented as of this encounter Visit Diagnoses Diagnosis Need for case management follow-up- Primary documented in this encounter Advance Directives Healthcare Agents on File Name Relationship Healthcare Agent Relationship Communication PIERRE Espinoza Other - (no specific identity) Health Care Forming Machine Upkeep Mechanic (appointed verbally by patient or by statute hierarchy) Care Teams Bed Manager Relationship Specialty Start Date End Date Sandra Rasheed MD [address] [place] [address] C[place] Walker [phone] PCP - General Family Medicine 06/05/15 documented as of this encounter
--- OUTSIDE RECORDS SUMMARY | 2023-08-01 09:47 | External Medical Summary | Summary of Care ---
Author Name Unknown Organization [facility] Address [address] [place] [address] Phone [phone] Care Team Providers Care Dye Weigher Helper Name Role Phone Sandra Rasheed MD Primary Care Provide r Encounter Details Date Type Department Care Team (Late st Contact Info) Description 05/31/2023 Orders Only Family Medicine [address] [phone] Sandra Rasheed MD [address] [place], [place] [address]C[place] escalante [address] Allergies Active Allergy Reactions Criticality Noted Date [...] tab on Mon-Mon-Mon, and 1/2 tab on Apj-Dauu-Epwxv-Mon., Informant: At Discharge, Reported on 06/08/2023 Atorvastatin [...] 3 12/26/2022 4 Active OneTouch Delica Plus [id number] :Type 2 diabetes mellitus with hemoglobin A1c [...] nodule 08/14/2019 Coronary artery disease invo lving [place] coronary artery of [place] heart without angina pectoris 08/30/2018 Diabetes mellitus [...] 12:20 PM EDT Office Visit Family Medicine [address] [place] [phone] Jordi Lerma MD [address] [place] [address] [place] [address] 06/13/2023 1:00 PM EDT Home Visit Care Coordination and Integration [address] [facility], [place] [phone] Krystal Tapia Community Health Report Checker [address] [place] [address] [place] [address] 07/27/2023 3:00 PM EDT Office Visit Cardiology, [facility] [place] [address] Laquita Leija CRNP [address] [place] [address] 07/31/2023 1:30 PM EDT Nurse Only Ancillary [address] [place] [address] Hank, Nurse Annual Wellness [address] [place] [address] [place] [address] 09/08/2023 1:00 PM EDT Office Visit Gastroenterology [address] [place] [address] Jelly Mills CRNP [address] [place] [address] 09/13/2023 11:15 AM EDT Office Visit Ophthalmology, [facility] [place] [address] Mulugeta Hodges DO [address] [place] [address] 09/27/2023 12:00 PM EDT Office Visit Pulmonary Medicine, [facility] [place] [address] Nir Ward MD [facility] [address] 10/31/2023 3:00 PM EDT Office Visit Family Medicine [address] [place] [phone] Susy Ochoa PA-C [address] [place] [address] [place] [address] 02/28/2024 11:00 AM EST Imaging Radiology [address] [facility] [place] [address] 05/07/2024 4:00 PM EST Office Visit Family Medicine [address] [place] [phone] Sandra Rasheed MD [address] [place] [address] [place] [address] 05/17/2024 12:00 PM EST Office Visit Sleep Disorders Ctr [facility] [place] [phone] Aminata Quiroz CRNP [address] [place] [address] Scheduled Procedures Name Priority Associated Diagnoses Date/Ti [...] Additional history exists CKD PHOS USE SMARTSET 32944 03/27/2024 01/0 10/2023, 04/26/2022, 04/21/2021, Additional history exists Albumin/Creatinine Ratio 05/02/2024 024, 04/26/2022, 08/10/2020, Additional history exists Diabetic Foot Exam 05/02/2024 05/02/2023, 0 04/26/2022, 07/22/2021, Additional history exists CKD HGB USE SMARTSET 24708 05/05/202405/05, 05/02/2023, 05/02/2023, Additional history exists Diabetic [...] this encounter Medical Devices Implanted Type Area Marketing Area Manager Device Identifier Shelf Expiration Date Model / Serial / Lot Gynecare Tvt Device Implanted:Qty: 1 on 06/18/[address] [facility] N/A: Bladder 02/17/2016 [id number] / / [id number] documented as of this encounter Procedures Procedure [...] interpreted or resulted by a [facility] or [facility] contracted radiologist. Sandra Rasheed MD RADIOLOGY (RA D GENERAL) documented in this encounter Advance Directives Healthcare Agents on File Name Relationship Healthcare Agent Relationship Communication PIERRE Espinoza Other - (no specific identity) Health Care Microsoft Office Instructor (appointed verbally by patient or by statute hierarchy) Care Teams Dye Weigher Helper Relationship Specialty Start Date End Date Sandra Rasheed MD [address] [place] [address] [place] [address] PCP - General Family Medicine 06/05/15 documented as of this encounter
--- OUTSIDE RECORDS SUMMARY | 2023-08-01 09:47 | External Medical Summary | Summary of Care ---
Author Name Unknown Organization [facility] Address [address] [place] [address] Phone [phone] Care Team Providers Care Cathode Washer Name Role Phone Sandra Rasheed MD Primary Care Provide r Encounter Details Date Type Department Care Team (Late st Contact Info) Description 06/13/2023 2:30 PM EDT Home Visit Care Coordination and Integration [address] [place], [place] [id number] Krystal Tapia [facility] [address] [place] [address] Need for case [...] tab on Mon-Mon-Mon, and 1/2 tab on Jde-Ecik-Fdymh-Mon., Informant: At Discharge, Reported on 06/08/2023 Atorvastatin [...] 3 12/26/2022 4 Active OneTouch Delica Plus [id number] :Type 2 diabetes mellitus with hemoglobin A1c goal of less than 8.0% ([facility]) Use to test blood sugar up to twice daily. Dx E11.9 200 Each 3 01/11/2023 Active OneTouch Verio In Vitro Strip (Glucose Blood)Indications:Ty pe 2 diabetes mellitus with hemoglobin A1c goal of less than 8.0% ([facility]) USE TO TEST BLOOD SUGAR UP TO TWICE DAILY 200 Strip 2 02/22/2023 5 Active Nebulizer/Tubing/Sindy thpiece KitIndications:COPD, group D, by GOLD 2017 classification ([facility]) Replacement requested as hers isn't delivering medicine well and is old. DME: [facility] 1 Kit 0 02/22/2023 Active Anoro Ellipta 62.5-25 MCG/ACT Inhalation Aerosol Powder Breath Activated (umeclidinium-vilant jyoti) Inhale 1 dose by mouth every morning. 180 Each 3 02/22/2023 Active Arnuity Ellipta 200 MCG/ACT Inhalation Aerosol Powder Breath Activated (fluticasone Furoate)Indications: COPD, group D, by GOLD 2017 classification ([facility]) 1 dose inhaled every evening. Rinse mouth [...] goal of less than 8.0% ([facility]) TAKE ONE TABLET BY MOUTH EVERY MORNING [...] nodule 08/14/2019 Coronary artery disease invo lving [place] coronary artery of [place] heart without angina pectoris 08/30/2018 Diabetes mellitus [...] - they gave it to her at [facility]. She's been having difficulty sleeping. Cougar it was helpful for her anxiety and [...] let foot." * Krystal Tapia, Community Health Compliance Engineer Products - 06/13/2023 3:06 PM EDT Telemedicine visit: No Community [facility] Compliance [employer] (TIFFANY) documentation: Patient reports open area to [...] or ED f/u. Patient [facility] then transferred to ED at [facility] dx pneumonia. [facility] provided patient [...] - they gave it to her at [facility]. She's been having difficulty sleeping. Cougar it was helpful for her anxiety and helped with her breathing. Only taking half a tab. documented in this encounter Plan of Treatment Upcoming Encounters Date Type Department Care Team (Late st Contact Info) Description 06/20/2023 2:20 PM EDT Office Visit Family Medicine [address] [place] [phone] Sandra Rasheed MD [address] [place] [address] [place] [address] 07/27/2023 3:00 PM EDT Office Visit Cardiology, [facility] [address] [place] [address] Laquita Leija CRNP [address] [place] [address] 07/31/2023 1:30 PM EDT Nurse Only Ancillary [address] [place] [address] Hank, Nurse [facility] [address] [place] [address] [place] [address] 09/08/2023 1:00 PM EDT Office Visit Gastroenterology [address] [place] [address] Jelly Mills CRNP [address] [facility] [place] [address] 09/13/2023 11:15 AM EDT Office Visit Ophthalmology, [facility] [place] [address] Mulugeta Hodges DO [address] [place] [address] 09/27/2023 12:00 PM EDT Office Visit Pulmonary Medicine, [address] [place] [address] Nir Ward MD [address] [place], [place] [address] [address] 10/31/2023 3:00 PM EDT Office Visit Family Medicine [address] [place] [phone] Susy Ochoa PA-C [address] [place] [address] [place] [address] 02/28/2024 11:00 AM EST Imaging Radiology [address] [facility] [place] [address] 05/07/2024 4:00 PM EST Office Visit Family Medicine [address] [place] [phone] Sandra Rasheed MD [address] [place] [address] [place] [address] 05/17/2024 12:00 PM EST Office Visit Sleep Disorders Ctr [address] [place] [phone] Aminata Quiroz CRNP [address] [place] [address] Scheduled Procedures Name Priority Associated Diagnoses Date/Ti [...] Additional history exists CKD PHOS USE SMARTSET 28271 03/27/2024 01/0 10/2023, 04/26/2022, 04/21/2021, Additional history exists Albumin/Creatinine Ratio 05/02/2024 024, 04/26/2022, 08/10/2020, Additional history exists Diabetic Foot Exam 05/02/2024 05/02/2023, 0 04/26/2022, 07/22/2021, Additional history exists CKD HGB USE SMARTSET 72491 05/05/202405/05, 05/02/2023, 05/02/2023, Additional history exists Diabetic [...] this encounter Medical Devices Implanted Type Area Geophysical Drafter Device Identifier Shelf Expiration Date Model / Serial / Lot Gynecare Tvt Device Implanted:Qty: 1 on 06/18/2013 at OR [facility] N/A: Bladder 02/17/2016 [id number] / / [id number] documented as of this encounter Visit Diagnoses Diagnosis Need for case management follow-up- Primary documented in this encounter Advance Directives Healthcare Agents on File Name Relationship Healthcare Agent Relationship Communication PIERRE Espinoza Other - (no specific identity) Health Care Retail Selling Floor Leader (appointed verbally by patient or by statute hierarchy) Care Teams Cathode Washer Relationship Specialty Start Date End Date Sandra Rasheed MD [address] [place] [address] [place] [address] PCP - General Family Medicine 06/05/15 documented as of this encounter
--- OUTSIDE RECORDS SUMMARY | 2023-08-01 09:47 | External Medical Summary | Summary of Care ---
Author Name Unknown Organization [facility] Address [address] [place] [address] Phone [phone] Care Team Providers Care Systems Designer Name Role Phone Sandra Rasheed MD Primary Care Provide r Encounter Details Date Type Department Care Team (Late st Contact Info) Description 06/13/2023 2:30 PM EDT Home Visit Care Coordination and Integration [address] [place], [place] [id number] Krystal Tapia [facility] [address] [place] [address] Need for case [...] tab on Mon-Mon-Mon, and 1/2 tab on Lcd-Hjqq-Gnrtm-Mon., Informant: At Discharge, Reported on 06/08/2023 Atorvastatin [...] 3 12/26/2022 4 Active OneTouch Delica Plus [id number] :Type 2 diabetes mellitus with hemoglobin A1c goal of less than 8.0% ([facility]) Use to test blood sugar up to twice daily. Dx E11.9 200 Each 3 01/11/2023 Active OneTouch Verio In Vitro Strip (Glucose Blood)Indications:Ty pe 2 diabetes mellitus with hemoglobin A1c goal of less than 8.0% ([facility]) USE TO TEST BLOOD SUGAR UP TO TWICE DAILY 200 Strip 2 02/22/2023 5 Active Nebulizer/Tubing/Sindy thpiece KitIndications:COPD, group D, by GOLD 2017 classification ([facility]) Replacement requested as hers isn't delivering medicine well and is old. DME: [facility] 1 Kit 0 02/22/2023 Active Anoro Ellipta 62.5-25 MCG/ACT Inhalation Aerosol Powder Breath Activated (umeclidinium-vilant jyoti) Inhale 1 dose by mouth every morning. 180 Each 3 02/22/2023 Active Arnuity Ellipta 200 MCG/ACT Inhalation Aerosol Powder Breath Activated (fluticasone Furoate)Indications: COPD, group D, by GOLD 2017 classification ([facility]) 1 dose inhaled every evening. Rinse [...] hemoglobin A1c goal of less than 8.0% ([facility]) TAKE ONE TABLET BY MOUTH EVERY [...] nodule 08/14/2019 Coronary artery disease invo lving [place] coronary artery of [place] heart without angina pectoris 08/30/2018 Diabetes mellitus [...] 06/13/2023 4:55 PM EDT Message received from CHW, Krystal Hooper, following home visit: "Med review: requesting refill of lorazepam 1mg - they gave it to her at [facility]. She's been having difficulty sleeping. Warren it was helpful for her anxiety and [...] let foot." * Krystal Tapia, Community Health Welder Repair - 06/13/2023 3:06 PM EDT Telemedicine visit: No Community Health Welder Repair (TIFFANY) documentation: Patient reports open area to [...] or ED f/u. Patient did go to [facility] then transferred to ED at [facility] dx pneumonia. [facility] provided patient with "The Breather" that [...] - they gave it to her at [facility]. She's been having difficulty sleeping. [place] it was helpful for her anxiety and helped with her breathing. Only taking half a tab. documented in this encounter Plan of Treatment Upcoming Encounters Date Type Department Care Team (Late st Contact Info) Description 06/20/2023 2:20 PM EDT Office Visit Family Medicine [address] [place] [phone] Sandra Rasheed MD [address] [place] [address] [place] [address] 07/27/2023 3:00 PM EDT Office Visit Cardiology, [facility] [address] [place] [address] Laquita Leija CRNP [address] [place] [address] 07/31/2023 1:30 PM EDT Nurse Only Ancillary [address] [place] [address] Hank, Nurse [facility] [address] [place] [address] [place] [address] 09/08/2023 1:00 PM EDT Office Visit Gastroenterology [address] [place] [address] Jelly Mills CRNP [address] [place] [address] 09/13/2023 11:15 AM EDT Office Visit Ophthalmology, [facility] [address] [place] [address] Mulugeta Hodges DO [address] [place] [address] 09/27/2023 12:00 PM EDT Office Visit Pulmonary Medicine, [facility] [address] [place] [address] Nir Ward MD [address] [place] [address] 10/31/2023 3:00 PM EDT Office Visit Family Medicine [address] [phone] Susy Ochoa PA-C [address] [place] [address] [place] [address] 02/28/2024 11:00 AM EST Imaging Radiology [address] [place] [address] 05/07/2024 4:00 PM EST Office Visit Family Medicine [address] [phone] Sandra Rasheed MD [address] [place] [address] [place] [address] 05/17/2024 12:00 PM EST Office Visit Sleep Disorders Ctr [facility] [address] [place] [phone] Aminata Quiroz CRNP [address] [place] [address] Scheduled Procedures Name Priority Associated Diagnoses Date/Ti [...] Additional history exists CKD PHOS USE SMARTSET 26815 03/27/202410/2023, 04/26/2022, 04/21/2021, Additional history exists Albumin/Creatinine Ratio 05/02/2024 024, 04/26/2022, 08/10/2020, Additional history exists Diabetic Foot Exam 05/02/2024 05/02/2023, 0 04/26/2022, 07/22/2021, Additional history exists CKD HGB USE SMARTSET 32091 05/05/202405/05, 05/02/2023, 05/02/2023, Additional history exists Diabetic [...] this encounter Medical Devices Implanted Type Area Informal Waiter/Waitress Device Identifier Shelf Expiration Date Model / Serial / Lot Gynecare Tvt Device Implanted:Qty: 1 on 06/18/2013 at OR [facility] N/A: Bladder 02/17/2016 [id number] / / [id number] documented as of this encounter Visit Diagnoses Diagnosis Need for case management follow-up- Primary documented in this encounter Advance Directives Healthcare Agents on File Name Relationship Healthcare Agent Relationship Communication PIERRE Espinoza Other - (no specific identity) Health Care Online Media Director (appointed verbally by patient or by statute hierarchy) Care Teams Systems Designer Relationship Specialty Start Date End Date Sandra Rasheed MD [address] [place] [address] [place] [address] PCP - General Family Medicine 06/05/15 documented as of this encounter
--- OUTSIDE RECORDS SUMMARY | 2023-08-01 09:47 | External Medical Summary | Summary of Care ---
Author Name Unknown Organization [facility] Address [address] [place] [address] Phone [phone] Care Team Providers Care Director Specialty Name Role Phone Sandra Rasheed MD Primary Care Provide r Encounter Details Date Type Department Care Team (Latest Contact Info) Description 05/31/2023 10:00 PM EDT - 05/31/2023 11:59 PM EDT Hospital Encounter Radiology Film File [address] [place] [address] Discharge Disposition: Home - Self Care Allergies [...] tab on Mon-Mon-Mon, and 1/2 tab on Fcz-Eass-Syjtb-Mon., Informant: At Discharge, Reported on 06/08/2023 Atorvastatin [...] 3 12/26/2022 4 Active OneTouch Delica Plus [id number] :Type 2 diabetes mellitus with hemoglobin A1c goal of less than 8.0% ([facility]) Use to test blood sugar up to twice daily. Dx E11.9 200 Each 3 01/11/2023 Active OneTouch Verio In Vitro Strip (Glucose Blood)Indications:Ty pe 2 diabetes mellitus with hemoglobin A1c goal of less than 8.0% ([facility]) USE TO TEST BLOOD SUGAR UP TO TWICE DAILY 200 Strip 2 02/22/2023 5 Active Nebulizer/Tubing/Sindy thpiece KitIndications:COPD, group D, by GOLD 2017 classification ([facility]) Replacement requested as hers isn't [...] D, by GOLD 2017 classification ([facility]) 1 dose inhaled every evening. [...] goal of less than 8.0% ([facility]) TAKE ONE TABLET BY MOUTH [...] 08/14/2019 Coronary artery disease invo lving [place] coronary artery of [place] heart without angina pectoris 08/30/2018 Diabetes mellitus [...] 12:20 PM EDT Office Visit Family Medicine [address] [place] [phone] Jordi Lerma MD [address] [place] [address] [place] [address] 06/13/2023 1:00 PM EDT [facility] [address] Krystal Tapia [facility] Picture Tube Rebuilder [address] [place] [address] [place] [address] 07/27/2023 3:00 PM EDT Office Visit Cardiology, [facility] [place] [address] Laquita Leija CRNP [address] [place] [address] 07/31/2023 1:30 PM EDT Nurse Only Ancillary [address] [place] [address] Hank, Nurse [address] [place] [address] 09/08/2023 1:00 PM EDT Office Visit Gastroenterology [address] [place] [address] Jelly Mills CRNP [address] [place] [address] 09/13/2023 11:15 AM EDT Office Visit Ophthalmology, [facility] [place] [address] Mulugeta Hodges, DO [address] [place] [address] 09/27/2023 12:00 PM EDT Office Visit Pulmonary Medicine, [facility] [place] [address] Nir Ward MD [facility] [place] [address] 10/31/2023 3:00 PM EDT Office Visit Family Medicine [address] [place] [phone] Susy Ochoa PA-C [address] [place] [address] [place] [address] 02/28/2024 11:00 AM EST Imaging Radiology [address] [facility] [place] [address] 05/07/2024 4:00 PM EST Office Visit Family Medicine [address] [place] [phone] Sandra Rasheed MD [address] [place] [address] [place] [address] 05/17/2024 12:00 PM EST Office Visit Sleep Disorders Ctr [facility] [place] [phone] Aminata Quiroz CRNP [address] [place] [address] Scheduled Procedures Name Priority Associated Diagnoses Date/Ti [...] Additional history exists CKD PHOS USE SMARTSET 92224 03/27/2024 01/0 10/2023, 04/26/2022, 04/21/2021, Additional history exists Albumin/Creatinine Ratio 05/02/2024 024, 04/26/2022, 08/10/2020, Additional history exists Diabetic Foot Exam 05/02/2024 05/02/2023, 0 04/26/2022, 07/22/2021, Additional history exists CKD HGB USE SMARTSET 72289 05/05/202405/05, 05/02/2023, 05/02/2023, Additional history exists Diabetic [...] this encounter Medical Devices Implanted Type Area Sr. Unix System Administrator Device Identifier Shelf Expiration Date Model / Serial / Lot Gynecare Tvt Device Implanted:Qty: 1 on 06/18/2013 at OR [facility] N/A: Bladder 02/17/2016 [id number] / / [id number] documented as of this encounter Procedures Procedure [...] interpreted or resulted by a [facility] or [facility] contracted radiologist. Sandra Rasheed MD RAD EZEQUIELOUN D documented in this encounter Advance Directives Healthcare Agents on File Name Relationship Healthcare Agent Relationship Communication PIERRE Espinoza Other - (no specific identity) Health Care Supervisor Winding Department (appointed verbally by patient or by statute hierarchy) Care Teams Director Specialty Relationship Specialty Start Date End Date Sandra Rasheed MD [address] [place] [address] [place] [address] PCP - General Family Medicine 06/05/15 documented as of this encounter
--- OUTSIDE RECORDS SUMMARY | 2023-08-01 09:48 | External Medical Summary | Summary of Care ---
Author Name Unknown Organization [facility] Address [address] [place] [address] Phone [phone] Care Team Providers Care Prospect Manager Name Role Phone Sandra Rasheed MD Primary Care Provide r Reason for Visit * Reason Onset Date Comments Advice 06/06/2023 Encounter Details Date Type Department Care Team (Late st Contact Info) Description 06/06/2023 Telephone Family Medicine [address] [phone] Sandra Rasheed MD [address] [place] [address] Advice Allergies Active Allergy Reactions Criticality Noted Date Comments Influenza Vaccines 01/06/2015 Had flu symptoms x 1 month after injection Iodinated Contrast Media High 09/01/2016 Hives 48 hours post cardiac cath. No respiratory symptoms Sulfa Antibiotics Unknown 02/22/2013 documented as of this encounter (statuses as of 06/07/2023) Medications Medication Sig Dispensed Refills Start Date End Date Status ASPIRIN 81 MG PO TABS Take by mouth at bedtime. 0 Active Cholecalciferol 1000 UNITS Capsule Take 1 Capsule by mouth at bedtime. 30 Cap 3 09/09/2016 Active meclizine (ANTIVERT) 25 MG TabletIndications:Gi daren script for 8 tablets to use x 5 days at [facility] 06-14-18 Take 1 Tab by mouth 3 times a day as needed for Dizziness. Indications: Given script for 8 tablets to use x 5 days at [facility] - 90 Tab 0 10/31/2018 Active [...] 3 12/26/2022 4 Active OneTouch Delica Plus [id number] :Type 2 diabetes mellitus with hemoglobin A1c goal of less than 8.0% ([facility]) Use to test blood sugar up to twice daily. Dx E11.9 200 Each 3 01/11/2023 Active OneTouch Verio In Vitro Strip (Glucose Blood)Indications:Ty pe 2 diabetes mellitus with hemoglobin A1c goal of less than 8.0% ([facility]) USE TO TEST BLOOD SUGAR UP TO TWICE DAILY 200 Strip 2 02/22/2023 5 Active Nebulizer/Tubing/Sindy thpiece KitIndications:COPD, group D, by GOLD 2017 classification ([facility]) Replacement requested as hers isn't delivering [...] COPD, group D, by GOLD 2017 classification ([facility]) 1 dose inhaled every evening. Rinse [...] 6 hours as needed. 0 05/06/2023 Active glipiZIDE ER 5 MG Oral Tablet Extended Release 24 Hour (Glucotrol XL)Indications:Type 2 diabetes mellitus with hemoglobin A1c goal of less than 8.0% ([facility]) TAKE ONE TABLET BY MOUTH EVERY MORNING 100 Tablet 1 05/17/2023 5 Active documented as of this encounter (statuses as of 06/07/2023) Active Problems Problem Noted Date Diagnosed Date [...] nodule 08/14/2019 Coronary artery disease invo lving [place] coronary artery of [place] heart without angina pectoris 08/30/2018 Diabetes mellitus [...] as of this encounter (statuses as of 06/07/2023) Resolved Problems Problem Noted Date Diagnosed Date [...] as of this encounter (statuses as of 06/07/2023) Immunizations Name Administration Dates Next Due HEP [...] Telephone Encounter - Cha Mcclendon RN - 06/06/2023 3:28 PM EDT Patient called today, she will be getting discharge from [facility] hospital tomorrow and she is scheduled for an appointment with Pulmonary at . Patient states if they need to order any testing she probably wont be able to do that, I counseled patient I would recommend keep appointment if they need todo testing they can always reschedule that. Its very difficult for patient to travel to [facility] because of distance and transportation concerns. It will be on the way home from the hospital tomorrow , so she will keep it. She is also afraid if she cancels the appt she wont get back in for weeks. Reason for Call: Advice Contact: Telephone Call Contact Type: Assessment Outcome: see note Face to face time spent with Patient (minutes): 0 Total Time including non face to face (minutes): 10 documented in this encounter Plan of Treatment Upcoming Encounters Date Type Department Care Team (Late st Contact Info) Description 06/07/2023 3:00 PM EDT Office Visit Pulmonary Medicine, [facility] [address] [place] [address] Nir Ward MD [address] [place] [address] 07/27/2023 3:00 PM EDT Office Visit Cardiology, [facility] [address] [place] [address] Laquita Leija CRNP [address] [place] [address] 07/31/2023 1:30 PM EDT Nurse Only Ancillary [address] [place] [address] [place], Nurse [address] [place] [address] 09/08/2023 1:00 PM EDT Office Visit Gastroenterology [address] [place] [address] Jelly Mills CRNP [address] [place] [address] 09/13/2023 11:15 AM EDT Office Visit Ophthalmology, [facility] [address] [place] [address] Mulugeta Hodges, [address] [place] [address] 10/31/2023 3:00 PM EDT Office Visit Family Medicine [address] [place] [phone] Susy Ochoa PA-C [address] [place] [address] [place] [address] 02/28/2024 11:00 AM EST Imaging Radiology [address] [facility] [place] [address] 05/07/2024 4:00 PM EST Office Visit Family Medicine [address] [place] [phone] Sandra Rasheed MD [address] [place] [address] [place] [address] 05/17/2024 12:00 PM EST Office Visit [facility] Disorders Ctr [facility] [address] [facility] [place] [phone] Aminata Quiroz CRNP 132 [facility] [place] [address] Scheduled Procedures Name Priority Associated Diagnoses Date/Ti [...] Additional history exists CKD PHOS USE SMARTSET 82886 03/27/2024 01/0 10/2023, 04/26/2022, 04/21/2021, Additional history exists Albumin/Creatinine Ratio 05/02/2024 024, 04/26/2022, 08/10/2020, Additional history exists Diabetic Foot Exam 05/02/2024 05/02/2023, 0 04/26/2022, 07/22/2021, Additional history exists CKD HGB USE SMARTSET 17869 05/05/202405/05, 05/02/2023, 05/02/2023, Additional history exists Diabetic Eye Exam 05/10/2024 05/10/2023, , 08/10/2022, Additional history exists O2 ASSESSMENT COMPLETED IN PAST YEAR FOR COPD 05/30/2024 05/31/2023 COLONOSCOPY-EVERY 3 YRS AGES 18-100 07/13/2025 07/13/2022, [...] this encounter Medical Devices Implanted Type Area Customer Advocacy Manager Device Identifier Shelf Expiration Date Model / Serial / Lot Gynecare Tvt Device Implanted:Qty: 1 on 06/18/2013 at OR [facility] N/A: Bladder 02/17/2016 [id number] / / [id number] documented as of this encounter Care Teams Prospect Manager Relationship Specialty Start Date End Date Sandra Rasheed MD [address] [place] [address] [place] [address] PCP - General Family Medicine 06/05/15 documented as of this encounter
--- OUTSIDE RECORDS SUMMARY | 2023-08-01 09:48 | External Medical Summary | Summary of Care ---
Author Name Unknown Organization [facility] Address [address] [place] [address] Phone [phone] Care Team Providers Care Returned Item Clerk Name Role Phone Sandra Rasheed MD Primary Care Provide r Reason for Visit * Reason Onset Date Comments Appointment 06/05/2023 Encounter Details Date Type Department Care Team (Late st Contact Info) Description 06/05/2023 Telephone Family Medicine [address] [phone] Sandra Rasheed MD [address] [place] [id number] Appointment Allergies Active Allergy Reactions Criticality Noted Date Comments Influenza Vaccines 01/06/2015 Had flu symptoms x 1 month after injection Iodinated Contrast Media High 09/01/2016 Hives 48 hours post cardiac cath. No respiratory symptoms Sulfa Antibiotics Unknown 02/22/2013 documented as of this encounter (statuses as of 06/05/2023) Medications Medication Sig Dispensed Refills Start Date End Date Status ASPIRIN 81 MG PO TABS Take by mouth at bedtime. 0 Active Cholecalciferol 1000 UNITS Capsule Take 1 Capsule by mouth at bedtime. 30 Cap 3 09/09/2016 Active meclizine (ANTIVERT) 25 MG TabletIndications:Gi daren script for 8 tablets to use x 5 days at [facility] 06-14-18 Take 1 Tab by mouth 3 times a day as needed for Dizziness. Indications: Given script for 8 tablets to use x 5 days at [facility] - 90 Tab 0 10/31/2018 [...] 3 12/26/2022 4 Active OneTouch Delica Plus [id number] :Type 2 diabetes mellitus with hemoglobin A1c [...] than 8.0% ([facility]) TAKE ONE TABLET BY MOUTH EVERY MORNING 100 Tablet 1 05/17/2023 5 Active documented as of this encounter (statuses as of 06/05/2023) Active Problems Problem Noted Date Diagnosed Date [...] nodule 08/14/2019 Coronary artery disease invo lving pilot station coronary artery of pilot station heart without angina pectoris 08/30/2018 Diabetes mellitus [...] as of this encounter (statuses as of 06/05/2023) Resolved Problems Problem Noted Date Diagnosed Date [...] as of this encounter (statuses as of 06/05/2023) Immunizations Name Administration Dates Next Due HEP [...] Telephone Encounter - Cha Mcclendon RN - 06/05/2023 3:58 PM EDT Patient called states she is still in the hospital, she needed to cancel nicole appointment she will follow up after getting discharge documented in this encounter Plan of Treatment Upcoming Encounters Date Type Department Care Team (Late st Contact Info) Description 06/07/2023 3:00 PM EDT Office Visit Pulmonary Medicine, [address] [place] [address] SylviaNir fischer MD [address] [place] [address] 07/27/2023 3:00 PM EDT Office Visit Cardiology, [facility] [place] [address] Laquita Leija CRNP [address] [place] [address] 07/31/2023 1:30 PM EDT Nurse Only Ancillary [address] [place] [address] [place], Nurse [address] [place] [address] 09/08/2023 1:00 PM EDT Office Visit Gastroenterology [address] [place] [address] Jelly Mills CRNP [address] [place] [address] 09/13/2023 11:15 AM EDT Office Visit Ophthalmology, [facility] [address] [place] [address] Mulugeta Hodges, [address] [place] [address] 10/31/2023 3:00 PM EDT Office Visit Family Medicine [address] [place] [phone] Susy Ochoa PA-C [address] [place] [address] [place] [address] 02/28/2024 11:00 AM EST Imaging Radiology [address] [place] [address] 05/07/2024 4:00 PM EST Office Visit Family Medicine [address] [place] [phone] Sandra Rasheed MD [address] [place] [address] [place] [address] 05/17/2024 12:00 PM EST Office Visit Sleep Disorders Ctr [facility] [address] [place] [phone] Aminata Quiroz CRNP [address] [place] [address] Scheduled Procedures Name Priority Associated Diagnoses Date/Ti [...] Additional history exists CKD PHOS USE SMARTSET 21382 03/27/2024 01/0 10/2023, 04/26/2022, 04/21/2021, Additional history exists Albumin/Creatinine Ratio 05/02/2024 024, 04/26/2022, 08/10/2020, Additional history exists Diabetic Foot Exam 05/02/2024 05/02/2023, 0 04/26/2022, 07/22/2021, Additional history exists CKD HGB USE SMARTSET 32378 05/05/202405/05, 05/02/2023, 05/02/2023, Additional history exists Diabetic [...] encounter Medical Devices Implanted Type Area Medical Transcription Radiology Device Identifier Shelf Expiration Date Model / Serial / Lot Gynecare Tvt Device Implanted:Qty: 1 on 06/18/2013 at OR [facility] N/A: Bladder 02/17/2016 [id number] / / [id number] documented as of this encounter Care Teams Returned Item Clerk Relationship Specialty Start Date End Date Sandra Rasheed MD [address] [place] [address] [place] [phone] PCP - General Family Medicine 06/05/15 documented as of this encounter
--- OUTSIDE RECORDS SUMMARY | 2023-08-01 09:48 | External Medical Summary | Summary of Care ---
Author Name Unknown Organization [facility] Address [address] [place] [address] Phone [phone] Care Team Providers Care Jewelry Department Supervisor Name Role Phone Sandra Rasheed MD Primary Care Provide r Reason for Visit * Reason Comments Follow Up Encounter Details Date Type Department Care Team (Latest Contact Info) Description 06/07/2023 3:00 PM EDT Office Visit Pulmonary Medicine, [facility] [address] [facility] [place] [address] Nir Ward MD [address] [id number] Type 2 diabetes mellitus with hemoglobin A1c goal of less than 8.0% ([facility])*; Dyslipidemia, goal LDL below 70; COPD, group D, by GOLD 2017 classification ([facility]); Centrilobular emphysema ([facility]); Lung nodule; OMARI (obstructive sleep apnea); Gastro-esophageal reflux disease without esophagitis; Hypertensive kidney disease with stage 3b chronic kidney disease ([facility]); Pulmonary hypertension (HCC); Chronic diastolic congestive heart failure (HCC); Acute respiratory failure with hypoxia ([facility]); Nocturnal hypoxemia Allergies Active Allergy Reactions Criticality [...] x 5 days at [facility] 06-14-18 Take 1 Tab by mouth 3 times a day as needed for Dizziness. Indications: Given script for 8 tablets to use x 5 days at [facility] 06-14-18 90 Tab 0 10/31/2018 Active CPAP [...] 3 12/19/2022 4 Active Additional Information Patient not taking.Reported on 06/07/2023 Atorvastatin Calcium 40 MG Oral Tablet (Lipitor)Indications :Dyslipidemia, goal LDL below 130,Hypertension goal BP (blood pressure) < 150/90 Take 1 Tablet by mouth every day 90 Tablet 3 12/26/2022 4 Active Omeprazole 20 MG Oral Capsule Delayed Release (PriLOSEC)Indication s:Hypertension goal BP (blood pressure) < 150/90 Take 1 Capsule by mouth in the morning. 90 Capsule 3 12/26/2022 4 Active OneTouch Delica Plus [id number] :Type 2 diabetes mellitus with hemoglobin A1c [...] KitIndications:COPD, group D, by GOLD 2017 classification ([facility]) Replacement requested as hers isn't [...] 2017 classification ([facility]) 1 dose inhaled every evening. Rinse mouth after use. 90 Each 3 02/22/2023 Active Additional Information Patient not taking.Reported on 06/07/2023 Dicyclomine HCl 10 MG Oral Capsule (Bentyl) [...] 06/07/2023 Active Additional Information Patient taking differently: 1 LPM bled through autoCPAP 10-20 cm H2O, 2LPM with exertion, 1 LPM at rest as needed, Reported on 06/07/2023 Doxycycline Hyclate 100 MG Oral Capsule Take 1 Capsule by mouth in the morning and 1 Capsule before bedtime. 0 Active documented as of this encounter (statuses [...] uit: Not Asked; Counseling Given: Not Answered Comments:06/07/23 currently smoking 8-10 cig/day Alcohol Use [...] Sign Reading Time Taken Comments Blood Pressure 92/60 06/07/2023 2:40 PM EDT Pulse 81 06/07/2023 2:40 PM EDT Temperature 36.8 C (98.3 F) 06/07/2023 2:40 PM ED T Respiratory Rate 22 06/07/2023 2:40 PM EDT Oxygen Saturation 93% 06/07/2023 2:40 PM EDT ra, rest Inhaled Oxygen Concentration - - Weight 82 kg (180 lb 12.4 oz) 06/07/2023 2:40 PM EDT Height 160 cm (5' 3") 06/07/2023 2:40 PM EDT Body Mass Index 32.02 06/07/2023 2:40 PM EDT documented in this encounter Progress Notes * Nir Ward MD - 06/07/2023 2:58 PM EDT 06/07/2023 Pulmonary Medicine, [address] [id number] Mildred Moser 1945 female 77 year old Attending Physician Documentation: 77-year-old female, significant past medical history of COPD, CHF, OSAS, nocturnal hypoxia, active smoker with 99 pack-year smoking history, recent hospitalization for COPD exacerbation at [facility], discharged today, presenting for pulmonary medicine follow-up evaluation. Patient has been discharge home today from hospital on doxycycline antibiotic therapy. No prednisone taper initiated due to hyperglycemia concerns. Patient describes episodic cough, wheezing with expectoration, increasing lower extremity edema, compliant with home oxygen. Compliant with CPAP therapy. Nocturnal oximetry on CPAP showed episodic desaturation with nonsustained bradycardia episodes. 2L oxygen CPAP bleeding will be ordered. Physical examination significant for class 2 throat, dry oral mucosa, compromised air entry with scattered expiratory wheezing, no dullness, regular cardiac rhythm, 2+ pitting lower extremity edema and nonlateralizing Neuro examination. Current bronchodilator regimen including Anoro and Arnuity inhaler along with rescue albuterol willbe continued. Oxygen therapy at 2 liters/minute for nighttime use via CPAP bleeding was ordered. Pulmonary clinic follow-up recommended in 3 months. DATA 08/2016 alpha-1 level normal 133 PFT from 12/2017: Spirometry is normal. There is no significant bronchodilator response. Lung volumes are normal. DLCO uncorrected for hemoglobin is normal. Compared to prior PFT from 02/2016 there has been no significant change. CT chest without contrast from 07/2020 : there is upper lung predominant centrilobular emphysema. There is linear scarring right middle lobe and left upper lobe/lingula. Area of consolidation in the lingula/left upper lobe is significantly improved with an area of likely scarring anteriorly left. There is a 4 mm nodule in the left lower lobe laterally which is stable dating back more than 2 years. Long-term stability makes more likely to represent scarring in be non malignant. There is no pleural effusion. There is no significant mediastinal adenopathy. Coronary artery and aortic calcifications. Assessment Type 2 diabetes mellitus with hemoglobin A1c goal of less than 8.0% ([facility]) (Primary) Dyslipidemia, goal LDL below 70 COPD, group D, by GOLD 2017 classification (HCC) Centrilobular emphysema (HCC) Lung nodule OMARI (obstructive sleep apnea) Gastro-esophageal reflux disease without esophagitis Hypertensive kidney disease with stage 3b chronic kidney disease (HCC) Pulmonary hypertension (HCC) Chronic diastolic congestive heart failure (HCC) Follow Up: Return in about 3 months (around 09/07/2023) for Clinic Visit. | For: Clinic Visit | Check-out note: COPD CHF Lung Nodule [facility] Hospitalization for COPD exacerbation, DC'd 06/07/2023 OSAS CPAP, + Hypoxia on CPAP, 2 L Oxygen being added Plan: Complete Doxycycline Hold off prednisone Add 2 L oxygen bleed in Resume Anoro and Arnuity inhaler F/u 3 months Call with change in respiratory symptoms status Nir Ward MD Subjective CC: Chief Complaint Patient presents with Follow Up HPI: Nursing Notes: Sneha Saldana LPN 06/07/23 1450 Addendum Pt for f/u COPD. Interm History/Respiratory Symptoms Cough: occasional-improved, dry Hemoptysis: no Sinus Symptoms: no Hospitalizations: was discharged from [facility] today ED Trips: 05/31/23 Triggers: exertion, stress Nocturnal: rare cough CPAP/BiPAP/O2: O2 2LPM with exertion, 1 LPM at night with CPAP, 1LPM at rest as needed Flu Vaccine: declined Pneumovax: 2012 Prevnar: 2016 COVID 19: declined Mmrc Cat Question 06/07/2023 2:47 PM EDT - Filed by Sneha Saldana LPN When do you become breathless? (4) I am too breathless to leave the house or I am breathless when dressing How frequently do you cough? (3) Do you have phlegm in your chest? (1) Is your chest tight? (1) How breathless do you become when walking up a hill or steps? (5) - When I walk up a hill or one flight of stairs I am very breathless How limited are you doing activities at home? (5) - I am very limited doing activities at home How confident are you leaving home with your lung condition? (1) How soundly do you sleep? (0) - I sleep soundly How much energy do you have? (4) Total MMRC Score (range: 0 - 4) 4 Total CAT Score (range: 0 - 40) 20 Objective Filed Vitals: 06/07/23 1440 BP: 92/60 Pulse: 81 Resp: 22 Temp: 36.8 C (98.3 F) TempSrc: Tympanic SpO2: 93% Weight: 82 kg (180 lb 12.4 oz) Height: 1.6 m (5' 3") Exam: Const: No signs of acute distress present. Head/Face: Normal on inspection. Eyes: Conjunctivae clear. Pupils equal round and reactive to light. ENMT: Oropharynx: No erythema, exudate or masses. Posterior pharynx is normal. Neck: Supple and symmetric. Resp: Respiratory examination as outlined above CV: Rate is regular. Rhythm is regular. No heart murmur appreciated. Extremities: No edema of the lower limbs bilaterally. Skin: Skin is warm and dry. Neuro: Coordination normal. No involuntary movement. Psych: Patient's attitude is cooperative. Mood is normal. Affect is normal. Tests reviewed with the patient: MRI ABDOMEN WO CONTRAST Result Date: 02/22/2023 IMPRESSION Pancreas divisum. No ductal dilatation. 5 mm distal pancreatic tail cystic focus, possibly small side branch IPMN. Marked right renal atrophy. US ABDOMEN LIMITED Result Date: 02/06/2023 IMPRESSION: Status post cholecystectomy. Prominent pancreatic duct. Please consider follow-up MRCP to further evaluate. Atrophic right kidney. CT CHEST LOW DOSE SCAN LUNG CANCER SCREEN 1 YEAR FOLLOW UP Result Date: 12/28/2022 IMPRESSION: 1. LungRADS Category 2: Negative, benign appearance or behavior. 2. LungRADS Category S: Negative. No new/unknown potentially significant incidental findings requiring additional evaluation. 3. Incidental findings as above. RECOMMENDATIONS: Next exam to be arranged by the Lung Cancer Screening Program. Available Radiologic data was reviewed by me in PACS. The images were shown to the patient and findings were discussed with the patient. HOME MEDICATIONS: Doxycycline Hyclate 100 MG Oral Capsule oxygen IN GAS glipiZIDE ER 5 MG Oral Tablet Extended Release 24 Hour (Glucotrol XL) Lidocaine 5 % External Patch (Lidoderm) oxyCODONE HCl 5 MG Oral Tablet (Oxy IR) Torsemide 10 MG Oral Tablet (Demadex) Dicyclomine HCl 10 MG Oral Capsule (Bentyl) Anoro Ellipta 62.5-25 MCG/ACT Inhalation Aerosol Powder Breath Activated (umeclidinium-vilanterol) B Complex Oral Capsule Nebulizer/Tubing/Mouthpiece Kit OneTouch Verio In Vitro Strip (Glucose Blood) OneTouch Delica Plus [id number] Atorvastatin Calcium 40 MG Oral Tablet (Lipitor) Omeprazole 20 MG Oral Capsule Delayed Release (PriLOSEC) Losartan Potassium 50 MG Oral Tablet (Cozaar) Metoprolol Tartrate 25 MG Oral Tablet (Lopressor) Ipratropium-Albuterol 0.5-2.5 (3) MG/3ML Inhalation Solution (Duoneb) Calcium Carb-Cholecalciferol 600-1000 MG-UNIT Oral Capsule Vitamin C 1000 MG Oral Tablet Olopatadine HCl 0.2 % Ophthalmic Solution (Pataday) CPAP meclizine (ANTIVERT) 25 MG Tablet Cholecalciferol 1000 UNITS Capsule ASPIRIN 81 MG PO TABS Arnuity Ellipta 200 MCG/ACT Inhalation Aerosol Powder Breath Activated (fluticasone Furoate) Spironolactone 25 MG Oral Tablet (Aldactone) Albuterol Sulfate HFA 108 (90 Base) MCG/ACT Inhalation Aerosol Solution ROS: No reported history of Hemoptysis, Hematemesis, Melena No reported history of Dysuria, Hematuria, Flank Pain No reported history of chronic headache, seizures No reported history of Fall or trauma . No reported history of recent change in weight or appetite. Past Medical History: Diagnosis Date COPD (chronic obstructive pulmonary disease) ([facility]) COVID-19 10/25/2021 CRVO (central retinal vein occlusion) OS Dyslipidemia, goal LDL below 130 Hypercholesteremia Hypertension Hypertension goal BP (blood pressure) < 140/90 Hypertensive retinopathy OU Impaired fasting glucose 02/22/2013 Lung nodule PAD (peripheral artery disease) ([facility]) 07/22/2014 Pneumonia 06/08/2015 [facility] 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 Urinary, incontinence, stress female Vitreous hemorrhage of left eye ([facility]) Past Surgical History: Procedure Laterality [...] - [place] COLONOSCOPY, DIAGNOSTIC (RECTUM) N/A 07/13/2022 [facility], colonoscopy, diverticulosis in sigmoid / [...] - [place] EGD, FLEXIBLE, DIAGNOSTIC N/A 07/13/2022 [facility], EGD normal scope / no [...] CONSENT, DR. HODGES REMOVAL OF APPENDIX 1960 [facility], [place] - Dr JAMIA Wang REMOVAL OF OVARY/OVIDUCT(S) 1980s bilateral - PAH REMOVAL OF TONSILS, UNDER AGE [age] yo [facility] - Dr. 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 [employer] Employer: [employer] Tobacco Use Smoking status: Every Day Current [...] 10/07 Social Determinants of Health Food Insecurity: Patient Declined (04/18/2023) Hunger Vital Sign Worried About Running Out of Food in the Last Year: Patient declined Ran Out of Food in the Last Year: Patient declined Family History Problem Relation Age of Onset Arthritis Mother Diabetes Mother Heart Disorder Mother Obesity Mother Cancer Mother ovarian Stroke Mother Asthma Mother Arthritis Father Heart Disorder Father Lung Disorder Brother Diabetes Grandmother (Maternal) Diabetes Grandmother (Paternal) Review of patient's allergies indicates: Allergen Reactions Iodinated Contrast Media Hives 48 hours post cardiac cath. No respiratory symptoms Influenza Vaccines Had flu symptoms x 1 month after injection Sulfa Antibiotics Unknown documented in this encounter Nursing Notes * Sneha Saldana LPN - 06/07/2023 2:35 PM EDT Pt for f/u COPD. Interm History/Respiratory Symptoms Cough: occasional-improved, dry Hemoptysis: no Sinus Symptoms: no Hospitalizations: was discharged from [facility] today ED Trips: 05/31/23 Triggers: exertion, stress Nocturnal: rare cough CPAP/BiPAP/O2: O2 2LPM with exertion, 1 LPM at night with CPAP, 1LPM at rest as needed Flu Vaccine: declined Pneumovax: 2013 Prevnar: 2016 COVID 19: declined Mmrc Cat Question 06/07/2023 2:47 PM EDT - Filed by Sneha Saldana LPN When do you become breathless? (4) I am too breathless to leave the house or I am breathless when dressing How frequently do you cough? (3) Do you have phlegm in your chest? (1) Is your chest tight? (1) How breathless do you become when walking up a hill or steps? (5) - When I walk up a hill or one flight of stairs I am very breathless How limited are you doing activities at home? (5) - I am very limited doing activities at home How confident are you leaving home with your lung condition? (1) How soundly do you sleep? (0) - I sleep soundly How much energy do you have? (4) Total MMRC Score (range: 0 - 4) 4 Total CAT Score (range: 0 - 40) 20 documented in this encounter Plan of Treatment Upcoming Encounters Date Type Department Care Team (Late st Contact Info) Description 06/12/2023 12:20 PM EDT Office Visit Family Medicine [address] [place] [phone] Jordi Lerma MD [address] [place] [address] [place] [address] 07/27/2023 3:00 PM EDT Office Visit Cardiology, [facility] [address] [place] [address] Laquita Leija CRNP [address] [place] [address] 07/31/2023 1:30 PM EDT Nurse Only Ancillary [address] [place] [address] [place], Nurse [address] [place] [address] 09/08/2023 1:00 PM EDT Office Visit Gastroenterology [address] [place] [address] Jelly Mills CRNP [address] [place] [address] 09/13/2023 11:15 AM EDT Office Visit Ophthalmology, [facility] [address] [place] [address] Mulugeta Hodges DO [address] [place] [address] 09/27/2023 12:00 PM EDT Office Visit Pulmonary Medicine, [facility] [place] [address] Nir Ward [facility] [address] [facility] [address] 10/31/2023 3:00 PM EDT Office Visit Family Medicine [address] [place] [phone] Susy Ochoa PA-C [address] [place] [address] [place] [address] 02/28/2024 11:00 AM EST Imaging Radiology [address] [facility] [place] [address] 05/07/2024 4:00 PM EST Office Visit Family Medicine [address] [place] [phone] Sandra Rasheed MD [address] [place] [address] [place] [address] 05/17/2024 12:00 PM EST Office Visit [facility] Disorders Ctr [facility] [address] [place] [phone] Aminata Quiroz CRNP [address] [place] [address] Scheduled Procedures Name Priority Associated Diagnoses Date/Ti [...] Additional history exists CKD PHOS USE SMARTSET 51752 03/27/2024 01/0 10/2023, 04/26/2022, 04/21/2021, Additional history exists Albumin/Creatinine Ratio 05/02/2024 024, 04/26/2022, 08/10/2020, Additional history exists Diabetic Foot Exam 05/02/2024 05/02/2023, 0 04/26/2022, 07/22/2021, Additional history exists CKD HGB USE SMARTSET 75012 05/05/202405/05, 05/02/2023, 05/02/2023, Additional history exists Diabetic Eye Exam 05/10/2024 05/10/2023, , 08/10/2022, Additional history exists O2 ASSESSMENT COMPLETED IN PAST YEAR FOR COPD 06/06/2024 06/07/2023 COLONOSCOPY-EVERY 3 YRS AGES 18-100 07/13/2025 07/13/2022, [...] this encounter Medical Devices Implanted Type Area Clinical Documentation Specialist Device Identifier Shelf Expiration Date Model / Serial / Lot Gynecare Tvt Device Implanted:Qty: 1 on 06/18/2013 at OR [facility] N/A: Bladder 02/17/2016 [id number] / / [id number] documented as of this encounter Visit Diagnoses Diagnosis Type 2 diabetes mellitus with hemoglobin A1c goal of less than 8.0% (HCC)- Primary Dyslipidemia, goal LDL below 70 Other and unspecified hyperlipidemia COPD, group D, by GOLD 2017 classification (HCC) Centrilobular emphysema (HCC) Other emphysema Lung nodule Solitary pulmonary nodule OMARI (obstructive sleep apnea) Obstructive sleep apnea (adult) (pediatric) Gastro-esophageal reflux disease without esophagitis Esophageal reflux Hypertensive kidney disease with stage 3b chronic kidney disease (HCC) Pulmonary hypertension (HCC) Other chronic pulmonary heart diseases Chronic diastolic congestive heart failure (HCC) Chronic diastolic heart failure Acute respiratory failure with hypoxia (HCC) Acute respiratory failure Nocturnal hypoxemia Hypoxemia documented in this encounter Care Teams Jewelry Department Supervisor Relationship Specialty Start Date End Date Sandra Rasheed MD [address] [place] [address] [place] [address] PCP - General Family Medicine 06/05/15 documented as of this encounter
--- OUTSIDE RECORDS SUMMARY | 2023-08-01 09:48 | External Medical Summary | Summary of Care ---
Author Name Unknown Organization [facility] Address [address] [place] [address] Phone [phone] Care Team Providers Care Storage Brine Worker Name Role Phone Sandra Rasheed MD Primary Care Provide r Reason for Visit * Reason Onset Date Comments Advice 06/06/2023 Encounter Details Date Type Department Care Team (Late st Contact Info) Description 06/06/2023 Telephone Family Medicine [address] [phone] Sandra Rasheed MD [address] [place] [id number] Advice Allergies Active Allergy Reactions Criticality Noted Date Comments Influenza Vaccines 01/06/2015 Had flu symptoms x 1 month after injection Iodinated Contrast Media High 09/01/2016 Hives 48 hours post cardiac cath. No respiratory symptoms Sulfa Antibiotics Unknown 02/22/2013 documented as of this encounter (statuses as of 06/06/2023) Medications Medication Sig Dispensed Refills Start Date End Date Status ASPIRIN 81 MG PO TABS Take by mouth at bedtime. 0 Active Cholecalciferol 1000 UNITS Capsule Take 1 Capsule by mouth at bedtime. 30 Cap 3 09/09/2016 Active meclizine (ANTIVERT) 25 MG TabletIndications:Gi daren script for 8 tablets to use x 5 days at [facility] 06-14-18 Take 1 Tab by mouth 3 times a day as needed for Dizziness. Indications: Given script for 8 tablets to use x 5 days at [facility] - 90 Tab 0 10/31/2018 Active CPAP [...] 3 12/26/2022 4 Active OneTouch Delica Plus [id number] :Type 2 diabetes mellitus with hemoglobin A1c goal of less than 8.0% ([facility]) Use to test blood sugar up to twice daily. Dx E11.9 200 Each 3 01/11/2023 Active OneTouch Verio In Vitro Strip (Glucose Blood)Indications:Ty pe 2 diabetes mellitus with hemoglobin A1c goal of less than 8.0% ([facility]) USE TO TEST BLOOD SUGAR UP TO TWICE DAILY 200 Strip 2 02/22/2023 5 Active Nebulizer/Tubing/Sindy thpiece KitIndications:COPD, group D, by GOLD 2017 classification ([facility]) Replacement requested as hers isn't [...] D, by GOLD 2017 classification ([facility]) 1 dose inhaled every evening. 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 Patient states if they need to order any testing she probably wont be able to do that, I counseled patient I would recommend keep appointment if they need todo testing they can always reschedule that. Its very difficult for patient to travel to [facility] because of distance and transportation concerns. It [...] 3:00 PM EDT Office Visit Pulmonary Medicine, [facility] [address] [place] [address] Nir Ward MD [address] [place] [address] 07/27/2023 3:00 PM EDT Office Visit Cardiology, [facility] [address] [place] [address] Laquita Leija CRNP [address] [place] [address] 07/31/2023 1:30 PM EDT Nurse Only Ancillary [address] [place] [address] [place], Nurse [address] [place] [address] 09/08/2023 1:00 PM EDT Office Visit Gastroenterology [address] [place] [address] Jelly Mills CRNP [address] [place] [address] 09/13/2023 11:15 AM EDT Office Visit Ophthalmology, [facility] [address] [place] [address] Mulugeta Hodges, [address] [place] [address] 10/31/2023 3:00 PM EDT Office Visit Family Medicine [address] [place] [phone] Susy Ochoa PA-C [address] [place] [address] [place] [address] 02/28/2024 11:00 AM EST Imaging Radiology [address] [facility] [place] [address] 05/07/2024 4:00 PM EST Office Visit Family Medicine [address] [place] [phone] Sandra Rasheed MD [address] [place] [address] [place] [address] 05/17/2024 12:00 PM EST Office Visit Sleep Disorders Ctr [facility] 132 [facility] [place] [phone] Aminata Quiroz CRNP 132 [facility] [place] [address] Scheduled Procedures Name Priority Associated Diagnoses Date/Ti [...] Additional history exists CKD PHOS USE SMARTSET 70793 03/27/2024 01/0 10/2023, 04/26/2022, 04/21/2021, Additional history exists Albumin/Creatinine Ratio 05/02/2024 024, 04/26/2022, 08/10/2020, Additional history exists Diabetic Foot Exam 05/02/2024 05/02/2023, 0 04/26/2022, 07/22/2021, Additional history exists CKD HGB USE SMARTSET 35964 05/05/202405/05, 05/02/2023, 05/02/2023, Additional history exists Diabetic [...] encounter Medical Devices Implanted Type Area Clinic Physician Director Device Identifier Shelf Expiration Date Model / Serial / Lot Gynecare Tvt Device Implanted:Qty: 1 on 06/18/2013 at OR [facility] N/A: Bladder 02/17/2016 [id number] / / [id number] documented as of this encounter Care Teams Storage Brine Worker Relationship Specialty Start Date End Date Sandra Rasheed MD [address] [place] [address] [place] [address] PCP - General Family Medicine 06/05/15 documented as of this encounter
--- OUTSIDE RECORDS SUMMARY | 2023-08-01 09:49 | External Medical Summary | Summary of Care ---
Author Name Unknown Organization [facility] Address [address] [place] [address] Phone [phone] Care Team Providers Care Lap Polisher Name Role Phone Sandra Rasheed MD Primary Care Provide r Reason for Visit * Reason Onset Date Comments Information 06/01/2023 Patient currentl y admitted to [facility] Encounter Details Date Type Department Care Team (Late st Contact Info) Description 06/01/2023 Telephone Family Medicine [address] [phone] Sandra Rasheed MD [address] [place] [id number] Information (Patient currently admitted to... Allergies Active Allergy Reactions Criticality Noted Date [...] tablets to use x 5 days at [facility] 3-28-19 Take 1 Tab by mouth 3 times a day as needed for Dizziness. Indications: Given script for 8 tablets to use x 5 days at [facility] 06-14-18 90 Tab 0 10/31/2018 Active [...] 3 12/26/2022 4 Active OneTouch Delica Plus [id number] :Type 2 diabetes mellitus with hemoglobin A1c [...] Telephone Encounter - Sandra Rasheed MD - 06/01/2023 12:30 PM EDT Noted. Thank you * Telephone Encounter - Cha Mcclendon RN - 06/01/2023 9:50 AM EDT Patient called states she was seen by Sully Medina yesterday for right middle back pain, patient stated it felt like a knife in her back. Patient also complain of chest pain and sob, Patient SPO2 was 87% on RA, and then 93% on 2lpm patient sent to the ER and she was calling to let us know she has been admitted with pneumonia. Patient is currently on 1.5L of oxygen. Patient did cancel her appointment with Shelbi on 06/04 and she will let us know when she gets discharge from [facility]. I will also message Laura to let her know she may need followed by a CM. Patient was lifeflight and admitted to [facility] in [place] with RSV. Message sent to provider and Laura as FYI Patient admitted to [facility] 05.31.23 For Hypoxia, COPD exacerbation, Pneumonia, SOB (shortness of breath), Rhinovirus infection, Elevated troponin, Hypomagnesemia Reason for Call: Information (Patient currently admitted to [facility]) Contact: Telephone Call Contact Type: Follow-up Outcome: see note Face to face time spent with Patient (minutes): 0 Total Time including non face to face (minutes): 20 documented in this encounter Plan of Treatment Upcoming Encounters Date Type Department Care Team (Late st Contact Info) Description 06/07/2023 11:20 AM EDT Office Visit Family Medicine [address] [phone] Susy Ochoa PA-C [address] [place] [address] [place] [address] 06/07/2023 3:00 PM EDT Office Visit Pulmonary Medicine, [facility] [address] [facility] [place] [address] Nir Ward MD [address] [facility] [address] 07/27/2023 3:00 PM EDT Office Visit Cardiology, [facility] [address] [facility] [place] [address] Laquita Leija CRNP 132 [facility] [place] [address] 07/31/2023 1:30 PM EDT Nurse Only Ancillary [address] [place] [address] [place], Nurse [address] [place] [address] 09/08/2023 1:00 PM EDT Office Visit Gastroenterology [address] [place] [address] Jelly Mills CRNP [address] [place] [address] 09/13/2023 11:15 AM EDT Office Visit Ophthalmology, [facility] [place] [address] Mulugeta Hodges DO [address] [place] [address] 10/31/2023 3:00 PM EDT Office Visit Family Medicine [address] [place] [phone] Susy Ochoa PA-C [address] [place] [address] [place] [address] 02/28/2024 11:00 AM EST Imaging Radiology [address] [facility] [place] [address] 05/07/2024 4:00 PM EST Office Visit Family Medicine [address] [place] [phone] Sandra Rasheed MD [address] [place] [address] [place] [address] 05/17/2024 12:00 PM EST Office Visit Sleep Disorders Ctr [facility] [address] [phone] Aminata Quiroz CRNP [address] [place] [address] Scheduled Procedures Name Priority Associated Diagnoses Date/Ti [...] Additional history exists CKD PHOS USE SMARTSET 32563 03/27/2024 01/0 10/2023, 04/26/2022, 04/21/2021, Additional history exists Albumin/Creatinine Ratio 05/02/2024 024, 04/26/2022, 08/10/2020, Additional history exists Diabetic Foot Exam 05/02/2024 05/02/2023, 0 04/26/2022, 07/22/2021, Additional history exists CKD HGB USE SMARTSET 17122 05/05/202405/05, 05/02/2023, 05/02/2023, Additional history exists Diabetic [...] this encounter Medical Devices Implanted Type Area Toppiece Cutter Device Identifier Shelf Expiration Date Model / Serial / Lot Gynecare Tvt Device Implanted:Qty: 1 on 06/18/2013 at OR [facility] N/A: Bladder 02/17/2016 [id number] / / [id number] documented as of this encounter Care Teams Lap Polisher Relationship Specialty Start Date End Date Sandra Rasheed MD [address] [place] [address] [place] [address] PCP - General Family Medicine 06/05/15 documented as of this encounter
--- OUTSIDE RECORDS SUMMARY | 2023-08-01 09:49 | External Medical Summary | Summary of Care ---
Author Name Unknown Organization [facility] Address [address] [place] [address] Phone [phone] Care Team Providers Care Sales Representative [employer] Name Role Phone Sandra Rasheed MD Primary Care Provide r Reason for Visit * Reason Comments Acute Patient presents in office today for ongoing concerns with wheezing -- having a hard time catching breath with just a short distance.Patient is also c/o of middle to lower back and R hip pain -- pain comes around the back to her belly button (worse with bowel movements/urination) Encounter Details Date Type Department Care Team (Late st Contact Info) Description 05/31/2023 10:40 AM EDT Office Visit [facility] [address] [place] [address] Demi Medina CRNP [address] [place] [address] Acute respiratory failure with hypoxia (HCC)*; COPD exacerbation (HCC); Respiratory distress; History of respiratory syncytial virus (RSV) infection; Right flank pain; Pulmonary hypertension (HCC) Allergies Active Allergy Reactions Criticality Noted [...] 09/09/2016 Active meclizine (ANTIVERT) 25 MG TabletIndications:G miguelen script for 8 tablets to use x 5 days at [facility] 06-14-18 Take 1 Tab by mouth 3 times a day as needed for Dizziness. Indications: Given script for 8 tablets to use x 5 days at [facility] 06-14-18 90 Tab 0 10/31/2018 Active CPAP [...] OF THE WEEK 64 Tablet 3 12/19/2022 10/01/202 4 Active Atorvastatin Calcium 40 MG Oral [...] 3 12/26/2022 4 Active OneTouch Delica Plus [id number] s:Type 2 diabetes mellitus with hemoglobin A1c [...] , group D, by GOLD 2017 classification ([facility] [...] :COPD, group D, by GOLD 2017 classification ([facility] [...] MORNING 100 Tablet 1 05/17/2023 5 Active predniSONE 20 MG Oral Tablet (Deltasone) 1 tab 3 times a day for 3 days, then 1 tab 2 times a day for 3 days, then 1 tab daily for 3 days 18 Tablet 0 05/11/2023 4 Discontinu ed(Medicat ion List Clean Up) [...] nodule 08/14/2019 Coronary artery disease invo lving [place] coronary artery of [place] heart without angina pectoris 08/30/2018 Diabetes mellitus [...] Sign Reading Time Taken Comments Blood Pressure 142/72 05/31/2023 10:16 AM EDT Pulse 68 05/31/2023 10:16 AM EDT Temperature 36.5 C (97.7 F) 05/31/2023 10:16 AM E DT Respiratory Rate 24 05/31/2023 10:16 AM EDT Oxygen Saturation 96% 05/31/2023 10:16 AM EDT Inhaled Oxygen Concentration - - Weight - - Height 158.8 cm (5' 2.5") 05/31/2023 10:16 AM ED T Body Mass Index - - documented in this encounter Progress Notes * Demi Medina CRNP - 05/31/2023 10:41 AM EDT Images from the original note were not included. Follow up Family Medicine Visit CC: Chief Complaint Patient presents with Acute Patient presents in office today for ongoing concerns with wheezing -- having a hard time catching breath with just a short distance. Patient is also c/o of middle to lower back and R hip pain -- pain comes around the back to her belly button (worse with bowel movements/urination) History of Present Illness: Mildred Moser is a 77 year old female presenting for right middle back pain. Feels like sticks knifein her back. Radiates to upper abd. She was seen in ED at - CT was done. She had RSV in March. Lifeflighted to [place] for ARDS, RSV COPD. Feels increased sob the since Monday. Progressively worsening sob. Exertional sob is severe. Currently on 1 lpm with rest. With exertion 2LPM. She was treated with prednisone in ED in [place] +wheezing +coughing +productive of mucous +mouth is sore USING NEBULIZER 2-3 TIMES PER DAY Using anoro and arnuity Also with urinary symptoms. Last culture positive 05/05/2023 Feels constipated. 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 [email or web address] Employer: [employer] Tobacco Use Smoking status: Every Day Current [...] Resource Strain: Not on file Food Insecurity: Patient Declined (04/18/2023) Hunger Vital Sign Worried About Running Out of Food in the Last Year: Patient declined Ran Out of Food in the Last Year: Patient declined Transportation Needs: Not on file Physical Activity: Not on file Stress: Not on file Social Connections: Not on file Intimate Partner Violence: Not on file Housing Stability: Not on file PMH: Past Medical History: Diagnosis Date COPD (chronic obstructive pulmonary disease) ([facility]) COVID-19 10/25/2021 CRVO (central retinal vein occlusion) OS Dyslipidemia, goal LDL below 130 Hypercholesteremia Hypertension Hypertension goal BP (blood pressure) < 140/90 Hypertensive retinopathy OU Impaired fasting glucose 02/22/2013 Lung nodule PAD (peripheral artery disease) ([facility]) 07/22/2014 Pneumonia 06/08/2015 [facility] 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 Urinary, incontinence, stress female Vitreous hemorrhage of left eye ([facility]) Past Surgical History: Procedure Laterality Date ARTHO,SHOUL,W/ROTATOR CUFF x 2 BREAST LESION,OTHER,EXCISION Right Benign-fatty tumor COLONOSCOPY 09/15/2014 adenomatous polyp, diverticulosis and AVM in cecum, repeat 5 yrs COLONOSCOPY, DIAGNOSTIC (RECTUM) 09/15/2014 COLONOSCOPY FLEXIBLE PROXIMAL DIAGNOSTIC performed by Lauren Kenny MD at ENDOSCOPY [facility] COLONOSCOPY, DIAGNOSTIC (RECTUM) 09/16/2019 diverticulosis sigmoid and descending colon/biopsies show serrated adenomatous polyps/recall 6 months/COLONOSCOPY FLEXIBLE PROXIMAL DIAGNOSTIC performed by Lauren Kenny MD at ENDOSCOPY [facility] COLONOSCOPY, DIAGNOSTIC (RECTUM) N/A 02/27/2020 adenomatous polyp, diverticulosis, repeat 3 yrs / COLONOSCOPY FLEXIBLE PROXIMAL DIAGNOSTIC performed by Lauren Kenny MD at ENDOSCOPY [facility] COLONOSCOPY, DIAGNOSTIC (RECTUM) N/A 07/13/2022 [facility], colonoscopy, diverticulosis in sigmoid / no specimens collected / 5 year recall / CYSTOSCOPY 06/18/2013 CYSTOURETHROSCOPY performed by Charlee Handley MD at OR [facility] EGD, FLEXIBLE, DIAGNOSTIC 02/20/2017 mild stomach irritation, gastric ulcers, hiatal hernia, repeat 3 mo/ESOPHAGOGASTRODUODENOSCOPY (EGD), FLEXIBLE, TRANSORAL, DIAGNOSTIC performed by Maye Zavala MD at ENDOSCOPY [facility] EGD, FLEXIBLE, DIAGNOSTIC 05/29/2017 hiatal hernia/ESOPHAGOGASTRODUODENOSCOPY (EGD), FLEXIBLE, TRANSORAL, DIAGNOSTIC performed by MD Sepideh at ENDOSCOPY [facility] EGD, FLEXIBLE, DIAGNOSTIC N/A 07/13/2022 [facility], EGD normal scope / no specimens [...] ONLY) Left 01/28/2016-01/27/2017 Eylea OS Consent signed, Dr.Cessna LARIOSCELLANEOUS ORDER ([facility] ONLY) Left 03/08/17-03/08/18 EYLEA OS CONSENT SIGNED, Dr. Tracie LARIOSCELLJEWEL ORDER ([facility] ONLY) Left 04/18/2018-04/18/2019 EYELEA OS CONSENT SIGNED, DR. TRACIE COLLINS ORDER ([facility] ONLY) ACT 112 SIGNED, Dr. Hodges (06-13-2018) MISCELLANEOUS ORDER ([facility] ONLY) Left 06/13/2019- EYLEA OS CONSENT, DR. HODGES REMOVAL OF APPENDIX 1960 [facility] [place] - Dr JAMIA Wang REMOVAL OF OVARY/OVIDUCT(S) bilateral - PAH REMOVAL OF TONSILS, UNDER AGE [age] yo [facility] - Dr. JAMIA Wang REMOVE GALLBLADDER at 61yrs old lap REPAIR ARM TENDON/MUSCLE 1998 right side REPAIR BLADDER DEFECT 06/18/2013 VAGINAL SLING PROCEDURE FOR STRESS INCONTINENCE performed by Cahrlee Handley MD at OR [facility] REPAIR INITIAL INCISIONAL OR VENTRAL HERNIA; REDUCIBLE post hysterectomy - has mesh in- Dr. Jim TOTAL ABD HYSTERECTOMY W/WO REMOVAL OF TUBE(S) benign disease- PAH Outpatient Medications Marked as Taking for the 05/31/23 encounter (Office Visit) with Demi Medina CRNP Medication Sig glipiZIDE ER 5 MG Oral Tablet Extended Release 24 Hour (Glucotrol XL) TAKE ONE TABLET BY MOUTH EVERY MORNING Lidocaine 5 % External Patch (Lidoderm) Place [...] medicine well and isold. DME: [facility] OneTouch Verio In Vitro Strip (Glucose Blood) USE TO TEST BLOOD SUGAR UP TO TWICE DAILY OneTouch Delica Plus [id number] Use to test blood sugar up to [...] TAKE ONE TABLET BY MOUTH EVERY DAY Metoprolol Tartrate 25 MG Oral Tablet (Lopressor) [...] winter. Olopatadine HCl 0.2 % [facility]mic [facility] ([facility]) Instill 1 Drop into both eyes daily. CPAP every night at bedtime. meclizine (ANTIVERT) 25 MG Tablet Take 1 Tab by mouth 3 times a day as needed for Dizziness. Indications: Given script for 8 tablets to use x 5 days at [facility] 06-14-18 Cholecalciferol 1000 UNITS Capsule Take 1 Capsule by mouth at bedtime. ASPIRIN 81 MG PO TABS Take by mouth at bedtime. Review of patient's allergies indicates: Allergen Reactions Iodinated Contrast Media Hives 48 hours post cardiac cath. No respiratory symptoms Influenza Vaccines Had flu symptoms x 1 month after injection Sulfa Antibiotics Unknown Most Recent Immunizations Administered Date(s) Administered HEP A - Hepatitis A (Adult > 18 yrs) 08/21/2017 Hepatitis B, 20+ yrs 08/21/2017 Pneumococcal Conjugate Vacc, 13 Valent (Prevnar) 06/15/2015 Pneumococcal Polysaccharide PPV23 (Pneumovax) 02/22/2013 Seasonal Influenza, Split, IIV3, With Preserve, Inj 12/03/2013 TDAP (age 10 and older)(Boostrix) 08/12/2022 TDAP (age 11 and older)(Adacel) 02/22/2013 Review of Systems: Review of Systems Constitutional: Positive for fatigue. Negative for diaphoresis and fever. HENT: Positive for congestion, postnasal drip and rhinorrhea. Negative for ear pain and sore throat. Respiratory: Positive for cough and shortness of breath. Cardiovascular: Positive for chest pain. Negative for palpitations and leg swelling. Physical Exam: BP 142/72 | Pulse 68 | Temp 36.5 C (97.7 F) | Resp 24 | Ht 1.588 m (5' 2.5") | SpO2 96% | BMI 33.12 kg/m | BSA 1.92 m Physical Exam Constitutional: Appearance: She is obese. Comments: Seated in wheelchair Nasal cannula in place HENT: Head: Normocephalic. Eyes: Pupils: Pupils are equal, round, and reactive to light. Cardiovascular: Rate and Rhythm: Tachycardia present. Pulmonary: Effort: Tachypnea and respiratory distress present. Breath sounds: Decreased air movement present. Decreased breath sounds, wheezing and rhonchi present. Chest: Comments: ttp Musculoskeletal: General: Normal range of motion. Cervical back: Normal range of motion. Skin: General: Skin is warm and dry. Nails: There is no clubbing. Neurological: General: No focal deficit present. Mental Status: She is alert and oriented to person, place, and time. Psychiatric: Mood and Affect: Mood is anxious. Affect is tearful. Behavior: Behavior normal. Thought Content: Thought content normal. Judgment: Judgment normal. Assessment and Plan: 1. Acute respiratory failure with hypoxia (HCC) Desaturates to 87% on RA Improved to 93% on 2LPM 2. COPD exacerbation (HCC) suspected 3. Respiratory distress Tachypnea at 28-30 breaths per min and using accessory muscles to breath Recommend ED eval- patient agreeable and prefers no ambulance. Report called to [facility] "Romeo" 4. History of respiratory syncytial virus (RSV) infection Hospitalized in march 24. Right flank pain CT abd and pelvis normal in apr I have advised the patient to call our office incase of any worsening or new symptoms. I spent a total of 40-54 minutes (exact time 40 mins) on the date of service in preparation, delivery, and documentation of the care provided to Mildred Moser excluding any time spent in the performance of separately billed services. Tanja, MSN, DIPAK [facility] Family Medicine documented in this encounter Nursing Notes * Leonarda Roche MED ASSIST - 05/31/2023 10:15 AM EDT The patient has been properly identified by confirmation of name and date of . Chief Complaint Patient presents with Acute Patient presents in office today for ongoing concerns with wheezing -- having a hard time catching breath with just a short distance. Patient is also c/o of middle to lower back and R hip pain -- pain comes around the back to her belly button (worse with bowel movements/urination) documented in this encounter Plan of Treatment Upcoming Encounters Date Type Department Care Team (Late st Contact Info) Description 06/07/2023 3:00 PM EDT Office Visit Pulmonary Medicine, [facility] [address] [facility] [place] [address] Nir Ward MD [address] [place] [address] 07/27/2023 3:00 PM EDT Office Visit Cardiology, [facility] [address] [facility] [place] [address] Laquita Leija CRNP [address] [facility] [place] [address] 07/31/2023 1:30 PM EDT Nurse Only Ancillary [address] [place] [address] Hank, Nurse [address] [place] [address] 09/08/2023 1:00 PM EDT Office Visit Gastroenterology [address] [place] [address] Jelly Mills CRNP [address] [place] [address] 09/13/2023 11:15 AM EDT Office Visit Ophthalmology, [facility] [address] [place] [address] Mulugeta Hodges DO [address] [place] [address] 10/31/2023 3:00 PM EDT Office Visit Family Medicine [address] [place] [phone] Susy Ochoa PA-C [address] [place] [address] [place] [address] 02/28/2024 11:00 AM EST Imaging Radiology [facility] [address] [place] [address] 05/07/2024 4:00 PM EST Office Visit Family Medicine [address] [place] [phone] Sandra Rasheed MD [address] [place] [address] [place] [address] 05/17/2024 12:00 PM EST Office Visit [facility] [address] [place] [phone] Aminata Quiroz CRNP [address] [place] [address] Scheduled Procedures Name Priority Associated Diagnoses Date/Ti [...] Additional history exists CKD PHOS USE SMARTSET 24586 03/27/2024 01/0 10/2023, 04/26/2022, 04/21/2021, Additional history exists Albumin/Creatinine Ratio 05/02/2024 024, 04/26/2022, 08/10/2020, Additional history exists Diabetic Foot Exam 05/02/2024 05/02/2023, 0 04/26/2022, 07/22/2021, Additional history exists CKD HGB USE SMARTSET 72712 05/05/202405/05, 05/02/2023, 05/02/2023, Additional history exists Diabetic [...] this encounter Medical Devices Implanted Type Area [employer] Device Identifier Shelf Expiration Date Model / Serial / Lot [employer] Tvt Device Implanted:Qty: 1 on 06/18/2013 at OR [facility] N/A: Bladder 02/17/2016 [id number] / / [id number] documented as of this encounter Visit Diagnoses Diagnosis Acute respiratory failure with hypoxia (HCC)- Primary Acute respiratory failure COPD exacerbation (HCC) Obstructive chronic bronchitis with exacerbation Respiratory distress Other dyspnea and respiratory abnormality History of respiratory syncytial virus (RSV) infection Right flank pain Abdominal pain, unspecified site Pulmonary hypertension (HCC) Other chronic pulmonary heart diseases documented in this encounter Care Teams Sales Representative [employer] Relationship Specialty Start Date End Date Sandra Rasheed MD [address] [place] [address] [place] [address] PCP - General Family Medicine 06/05/15 documented as of this encounter
[2023-08-01] MEDS: BUDESONIDE 0.5 MG/2 ML VIAL (PULMICORT) NEB SCH (11:57)
[2023-08-01] MEDS: FORMOTEROL 20 MCG/2 ML VIAL NEB SCH (11:57)
--- NOTE | 2023-08-01 12:03 | Electrocardiogram Report ---
Test Reason : Blood Pressure : / mmHG Vent. Rate : 082 BPM Atrial Rate : 082 BPM P-R Int : 132 ms QRS Dur : 082 ms QT Int : 366 ms P-R-T Axes : 072 -01 054 degrees QTc Int : 427 ms Normal sinus rhythm Possible Left atrial enlargement Poor R wave progression, consider anterior [place] vs. lead placement vs. LVH Abnormal ECG Confirmed by Mulugeta Rosa ([id number]) on 08/01/2023 12:03:16 PM Referred By: Susy Ochoa Confirmed By:Abner Rosa
[2023-08-01] MEDS: SODIUM CHLORIDE 0.65% NA SOLN 45 ML (OCEAN) ONE (12:33)
--- NOTE | 2023-08-01 14:40 | CT Scan Report ---
CT chest diagnostic wo con CT DOSE: 647.52 mGy.cm CLINICAL HISTORY: 77 years-old Female with Rule out pneumonia, hx of COPD. Acute shortness of breath TECHNIQUE: Multiaxial CT images of the chest were performed without contrast. A dose lowering techni que was utilized adhering to the principles of ALARA. COMPARISON: CT chest 02/12/2020 FINDINGS: No thyroid nodule or lymphadenopathy. The heart is mildly enlarged with extensive pulmonary artery calcifications. Atherosclerosis of the thoracic aorta without aneurysm. The unopacified pulmo nary artery is unremarkable. There is no pneumothorax, pleural effusion or pulmonary edema. Mild to moderate pulmonary emphysema. Bronchial wall thickening with areas of mucous plugging. Mild patchy areas of subpleural subsegmental consolidation are noted bilaterally, most pronounced within the left upper and lower lobes. Mild add itional scattered tree-in-bud nodules. No suspicious pulmonary nodules or masses identified. 5 mm calcification within the interpolar left kidney. Atrophic right kidney. Cholecystectomy. The spl een is mildly enlarged. Chronic-appearing calcified abdominal aortic dissection. The abdominal aorta measures up to 2.4 cm. No acute fracture. IMPRESSION: 1. Emphysema with bronchitis and mucous plugging. 2. Scattered tree in bud nodules compatible with an infectious or inflammatory bronchiolitis. 3. Mild patchy subpleural airspace opacities may represent areas of atelectasis versus pneumonia. 4. No pleural effusion or lymphadenopathy. 5. Severely atrophic right kidney. ACT 112: Negative or not required by law. Electronically signed by: Jeff Pacheco M.D. 08/01/2023 2:38 PM
--- NOTE | 2023-08-01 14:52 | Pharmacy Report ---
Pharmacy Glycemic Short Note 2 - Date of Service August 01, 2023 - Glycemic Short BSG Results (Last 24 hours): 07/31/23 07/31/23 07/31/23 16:09 20:24 20:26 Glucose 179 H POC Glucose 418 H* 404 H* 08/01/23 08/01/23 08/01/23 03:27 05:56 08:14 Glucose 225 H POC Glucose 268 H 220 H 08/01/23 12:13 Glucose POC Glucose 172 H OUTPATIENT ANTIDIABETIC REGIMEN: * Glipizide 5 mg PO daily * A1c = 7% ASSESSMENT: * Mildred is a 77 T2DM who presented with worsening shortness of breath. * Started on IV antibiotics and high dose IV steroids (methylprednisolone 40 mg IV TID) for acute on chronic respiratory failure and possible volume overload. BSG of 418 mg/dL on 07/30 PM. * Fasting BSG 220 mg/dL. Will order Lantus to be dosed per BSG scale until insulin needs are better known. * Tighten Novolog CF and CR. PLAN FOR INPATIENT GLYCEMIC CONTROL: * Hold outpatient oral diabetes medications * Basal insulin * Lantus 8-14-20 units SQ BID - 8 units for BSG > 140, 14 units for BSG 140 - 220, 20 units for BSG > 220 mg/dL * Bolus insulin * NovoLog per scale ACHS or Q6hrs while NPO * Goal Range: Low 110 mg/dL - High 140 mg/dL * Correction Factor: 20 mg/dL/unit * Nutritional / Prandial insulin per carb ratio of 1 unit per 8 grams CHO consumed
--- NOTE | 2023-08-01 14:56 | Hospitalist Progress Note ---
Date of Service August 01, 2023 Assessment & Plan (1) Parainfluenza virus infection: (2) Hypomagnesemia: (3) Acute hypoxic respiratory failure: (4) Chronic diastolic CHF (congestive heart failure): (5) CAD (coronary artery disease): (6) Hypertension: (7) Diabetes mellitus, type 2: Plan 77 year old F that presented to the ED with SOB that reportedly has been worsening over the past few days despite being started on antibiotics as an outpatient. She was started on Doxycycline as an outpatient for treatment of 'pneumonia'. She was also given Prednisone with minimal improvement. Parainfluenza 3 virus infection: Pneumonia COPD exacerbation Recent admission in May + entero/rhinovirus and RSV admission in March 2023. No leukocytosis Chest x-ray:Cardiomegaly and emphysema with mild pulmonary vascular congestion. CT chest shows mucous plugging and scattered tree-in-bud nodules and mild patchy subpleural airspace opacities Continue DuoNebs every 6 hours. Also on budesonide and formoterol nebs Continue empiric antibiotics ceftriaxone and azithromycin, Mucinex Continue IV steroids for the time being; will do 2-week taper at discharge given prolonged exacerbation Pulmonary toilet with Mucinex, incentive spirometry, and flutter valve Discussed importance of smoking cessation with patient at bedside. She reports that she will not quit smoking. I discussed nicotine replacement therapy as well as Chantix; patient does not want to try those things. Acute on Chronic Diastolic CHF exacerbation- ruled out Chest x-ray on admission was concerning for volume overload. However comparison of her previous chest x-ray shows similar findings CT chest did not show any pulmonary edema BNP within normal levels Echocardiogram shows EF of greater than 70%, left ventricle hyperdynamic. Prominent anterior papillary muscle. Resting intracavitary left ventricular gradient of 54 mmHg. Discussed with balloon design printer who evaluated the report; Patient is already on beta-jeremy with metoprolol tartrate 12.5 mg twice daily . No workup needed further. Continue home diuretics DM2: Chronic Last A1C 05/13 6.8; Takes Glipizide; hold while inpatient and place on SSI achs HTN: Chronic Takes Losartan and Metoprolol; continue CAD: Chronic Non-obstructive No chest pain but does feel palpitations Takes ASA; continue Disposition: PCP: Code Status: Conditional VTE Prophylaxis: Lovenox SQ Time spent evaluating patient, direct bedside care, chart review, placing orders, interpretation of diagnostic studies, discussion with consultants, patient, and family members, as well as other required patient management activities is 50 minutes Please note the above document was generated using voice recognition software. It may contain grammatical, syntax or spelling errors. Any formal questions or concerns about the content, text or information contained within the body of this dictation should be directly addressed to the provider for clarification Admission and Anticipated Discharge Date Admission Date: July 31, 2023 Subjective Reports improvement in her shortness of breath. Oxygen requirement has decreased to 2 L of oxygen by nasal cannula Review of Systems Review of Systems: All systems reviewed & are unremarkable except as noted in Subjective Physical Exam Physical Exam: Constitutional: WD/WN, vitals as above, NAD, sitting up in bed, pleasant, conversing easily Respiratory: b/l wheeze present Cardiovascular: RRR, no murmur, no edema Vessels: no JVD or carotid bruit Chest: normal inspection of chest Abdomen: normal bowel sounds, soft, nontender, no hepatosplenomegaly Musculoskeletal: no cyanosis or clubbing, extremities motor strength 5/5 Skin: no rashes, warm and dry normal turgor Neurologic: PERRL, EOMI, accommodation nl, no face palsy, no dysarthria CN's II- XI intact bilaterally and moves all extremities Psychiatric: A+Ox3, euthymic affect Results & Data Results & Data Vital Signs (Past 12 Hours) Vital Signs Temp Pulse Pulse Resp BP Pulse Ox O2 Del Method 08/01/23 11:00 69 18 94 Nasal Cannula 08/01/23 10:57 36.7 C 69 18 132/79 94 Nasal Cannula 08/01/23 08:00 58 L 08/01/23 08:00 Nasal Cannula 08/01/23 07:49 36.3 C L 69 19 138/72 95 Nasal Cannula 08/01/23 07:13 65 16 92 Room Air, CPAP 08/01/23 03:20 36.5 C 66 20 142/64 H 90 CPAP O2 Flow Rate 08/01/23 11:00 2 08/01/23 10:57 2 08/01/23 08:00 08/01/23 08:00 2 08/01/23 07:49 3 08/01/23 07:13 08/01/23 03:20
--- NOTE | 2023-08-01 15:10 | Ultrasound Report ---
ULTRASOUND BILATERAL LOWER EXTREMITY VENOUS CLINICAL HISTORY: Dyspnea. Clinical concern for deep venous thrombosis. COMPARISON STUDY: No priors. TECHNIQUE: Real-time, grayscale, and color Doppler sonography of the deep veins of the right and left lower extremity was performed from the inguinal crease to the calf. Compression and augmentation wer e utilized. FINDINGS: There is no sonographic evidence of deep venous thrombosis identified in the right or left lower extremity. The common femoral, superficial femoral, and popliteal veins are patent and normally compressible bilaterally. The greater saphenous vein and the profunda femoris vein at the junction w ith the common femoral vein are clear in both legs. The visualized calf veins are patent bilaterally. A complex pelvic cyst on the right measures 5.0 x 1.5 x 2.5 cm and a complex popliteal cyst on the l eft measures 4.8 x 1.2 x 2.5 cm. IMPRESSION: 1. There is no sonographic evidence of deep venous thrombosis identified in the right or left lower e xtremity. 2. Bilateral Davis's cysts. ACT 112: Negative or not required by law. Electronically signed by: Osito Pepper M.D. 08/01/2023 3:09 PM
[2023-08-01] MEDS: LANTUS PER UNIT CHARGE SQ SCH (20:03)
[2023-08-02 06:25] LABS: Basophils # (auto) 0.01 K/uL (0.00-0.20); Basophils % (auto) 0.1 %; Hematocrit (blood only) 41.2 % (37.0-47.0); Hemoglobin 14.4 g/dl (12.0-16.0); Immature Granulocytes # (auto) 0.06 K/uL (0.01-0.20); Immature Granulocytes % (auto) 0.5 %; Lymphocytes # (auto) 0.66 K/uL (1.20-3.40); Mean Corpuscular Hemoglobin 29.4 pg (25.0-34.0); Mean Corpuscular Volume 84.1 fL (80.0-100.0); Mean Platelet Volume 10.3 fL (9.4-12.4); Monocytes # (auto) 0.38 K/uL (0.11-0.59); Monocytes % (auto) 3.5 %; Neutrophils # (auto) 9.83 K/uL (1.40-6.50); Neutrophils % (auto) 89.9 %; Platelet Count 187 K/uL (130-400); RDW Coefficient of Variation 13.2 % (11.5-14.5); RDW Standard Deviation 40.3 fL (36.4-46.3); White Blood Count 10.94 K/ul (4.8-10.8)
[2023-08-02 06:38] LABS: BUN Creatinine Ratio 27.8 (10-20); Calcium 9.2 mg/dl (8.6-10.3); Est GFR (African American) 36.5 ml/min; Est GFR (Non-African American) 31.5 ml/min; Potassium 4.6 mmol/L (3.5-5.1)
[2023-08-02] MEDS: SPIRONOLACTONE 25 MG TAB PO SCH (08:33)
--- NOTE | 2023-08-02 09:56 | Pharmacy Report ---
Pharmacy Glycemic Short Note 2 - Date of Service August 02, 2023 - Glycemic Short BSG Results (Last 24 hours): 08/01/23 08/01/23 08/01/23 12:13 16:13 19:45 Glucose POC Glucose 172 H 110 H 245 H 08/02/23 08/02/23 05:29 08:00 Glucose 208 H POC Glucose 206 H OUTPATIENT ANTIDIABETIC REGIMEN: * Glipizide 5 mg PO daily * A1c = 7% ASSESSMENT: 08/01: * Mildred received 67 units of SQ insulin yesterday while on methylprednisolone 40 mg IV TID * 34 units of basal and 33 units of bolus * Fasting BSG of 206 mg/dL this morning. Fasting improved but remains above goal. I will lower the threshold of the basal dosing scale to allow for increased doses of insulin to be given. * Post prandial BSGs mostly controlled with the exception of BSG 245 mg/dL at baseline. 07/31: * Mildred is a 77 T2DM who presented with worsening shortness of breath. * Started on IV antibiotics and high dose IV steroids (methylprednisolone 40 mg IV TID) for acute on chronic respiratory failure and possible volume overload. BSG of 418 mg/dL on 07/30 PM. * Fasting BSG 220 mg/dL. Will order Lantus to be dosed per BSG scale until insulin needs are better known. * Tighten Novolog CF and CR. PLAN FOR INPATIENT GLYCEMIC CONTROL: * Hold outpatient oral diabetes medications * Basal insulin * Lantus 8-14-20 units SQ BID - 8 units for BSG > 140, 14 units for BSG 140 - 220, 20 units for BSG > 220 mg/dL * Bolus insulin * NovoLog per scale ACHS or Q6hrs while NPO * Goal Range: Low 110 mg/dL - High 140 mg/dL * Correction Factor: 20 mg/dL/unit * Nutritional / Prandial insulin per carb ratio of 1 unit per 8 grams CHO consumed
--- NOTE | 2023-08-02 11:52 | Electrocardiogram Report ---
Test Reason : Blood Pressure : / mmHG Vent. Rate : 073 BPM Atrial Rate : 073 BPM P-R Int : 130 ms QRS Dur : 086 ms QT Int : 400 ms P-R-T Axes : 069 -17 042 degrees QTc Int : 440 ms Normal sinus rhythm Possible Inferior infarct , age undetermined Abnormal ECG When compared with ECG of 31-JUL-2023 18:45, No significant change was found Confirmed by Mulugeta Rosa ([id number]) on 08/02/2023 11:51:50 AM Referred By: Susy Ochoa Confirmed By:Abner Rosa
[2023-08-02] MEDS: TORSEMIDE 10 MG TAB PO SCH (13:19)
--- NOTE | 2023-08-02 13:52 | Pulmonary Consultation ---
Date of Consultation August 02, 2023 Assessment & Plan (1) COPD exacerbation: (2) Acute hypoxic respiratory failure: (3) Parainfluenza virus infection: (4) Tobacco abuse counseling: (5) OMARI (obstructive sleep apnea): Plan Patient with recurrent COPD exacerbation secondary to parainfluenza infection and continued tobacco abuse. Patient has had multiple readmissions this year due to viral infections leading to recurrent COPD exacerbations. I suspect she likely has established a new baseline of lung dysfunction due to her recurrent infections and continued tobacco abuse. Her exacerbation this time appears to be resolving not going to decrease her IV methylprednisone to prednisone 40 mg daily. This can be continued for 10 additional 2 days and then stopped. The patient does not have any evidence of typical bacterial pneumonia. Ceftriaxone has been discontinued. Recommend azithromycin for total 5 days to cover for atypical infection. I had a lengthy discussion with the patient regarding tobacco abuse as documented per HPI. She has several bizarre notions regarding use of tobacco. She feels that smoking helps improve her breathing and her oxygen saturations. She is concerned that stopping smoking can lead to sudden and lung cancer. She relates that the business intelligence consultant told her this years ago that nicotine helps prevent cancer from spreading. I reiterated to her that smoking is one of the most common causes of COPD and lung cancer and will likely contribute to further demise of her lung function. Continue CPAP given her history of OMARI. May benefit from outpatient PAP titration study to see if she should be transitioned to BiPAP therapy or AVAPS given her COPD and chronic hypoxia. She does have an outpatient sleep medicine [employer] that she follows with through [facility]. She has an outpatient business intelligence consultant in [facility] and should continue to follow- up with them. Would strongly encourage further discussion regarding smoking cessation with the patient and outpatient pulmonary rehab if patient is agreeable. Otherwise, I have no further recommendations and will sign off at this time. Thank you for the consult. Please call with questions. History of Present Illness Reason for Consultation: Repeated hospital admissions due to dyspnea and hypoxia Attending Physician: Kristy Deleon MD History of Present Illness 77-year-old female who presented to the ED 07/31/2023 due to increasing shortness of breath and cough. She was on antibiotics as an outpatient for presumptive pneumonia. She was also given prednisone without much improvement. Patient is an active smoker and is stated in the past that she is not interested in quitting smoking. During this hospitalization she was found to have parainfluenza. She was also recently discharged from the hospital in May for enterovirus and earlier this year for RSV. She does carry history of diastolic heart failure and had an echo yesterday which revealed mild concentric LVH and a prominent anterior lateral papillary muscle. EF was greater than 70%. BNP on admission was 119. Procalcitonin was 0.11. White count has been minimally elevated. Eosinophil counts have been unremarkable. She is currently on Rocephin, azithromycin and methylprednisolone 40 [address] chest completed 08/01/2023 and was personally reviewed revealing emphysema and bronchial wall thickening. She appears to have bronchiectatic changes in the left upper lobe in the paramediastinal region. There also appears to be some mild bronchiectasis in the lingula and associated atelectasis. Right middle lobe with subtle tree-in-bud changes. Atelectatic changes noted in the left lower lobe. Patient notes that she has smoked cigarettes for 60 years and has roughly [id number] smoking history. She smokes three fourths of a pack of cigarettes a day. She relates that cigarettes seem to calm her breathing. She has several unusual notions about nicotine and cigarette use. She reports that she was told years ago by an unknown business intelligence consultant that nicotine helps to keep lung cancer away. She also reports that "everyone I know has within 3 months of quitting smoking". She relates that she tried nicotine patches, lozenges and Chantix with minimal success. She relates that she has trouble affording smoki ng cessation aids. She follows with the business intelligence consultant at [facility]. She notes that she had a falling out with her previous business intelligence consultant over vaccine recommendations as she notes that she "does not believe in the COVID-vaccine". She notes that she has been feeling unwell for several months due to shortness of breath and cough. Last week her symptoms began to get worse including shortness of breath and cough. She notes that she was barely able to get out of bed. Allergies Allergy/AdvReac Type Severity Reaction Status Date / Time Iodinated Contrast Media Allergy Severe Hives--48 Verified 07/31/23 17:46 HRS AFTER HEART CATH PROCEDURE Sulfa (Sulfonamide Allergy Unknown Pt doesn't Verified 07/31/23 17:46 Antibiotics) remember Influenza Virus Vaccines AdvReac Intermediate FLU-LIKE Verified 07/31/23 17:46 SYMPTOMS Home Medications Medication Instructions Recorded Confirmed Type aspirin 81 mg tablet,delayed 81 mg PO QAM 07/04/22 07/31/23 History release atorvastatin 40 mg tablet 40 mg PO HS 07/04/22 07/31/23 History fluticasone furoate 200 1 inh inhalation HS 07/04/22 07/31/23 History mcg/actuation blister powder for inhalation (Arnuity Ellipta) glipizide 5 mg tablet 5 mg PO QAM 07/04/22 07/31/23 History losartan 50 mg tablet 50 mg PO QAM 07/04/22 07/31/23 History metoprolol tartrate 25 mg tablet 12.5 mg PO BID 07/04/22 07/31/23 History omeprazole 20 mg capsule,delayed 20 mg PO QAM 07/04/22 07/31/23 History release spironolactone 25 mg tablet 12.5 mg PO 4XWK 07/04/22 07/31/23 History spironolactone 25 mg tablet 25 mg PO 3XWK 07/04/22 07/31/23 History umeclidinium 62.5 mcg-vilanterol 1 inh inhalation DAILY 07/04/22 07/31/23 History 25 mcg/actuation powdr for inhalation (Anoro Ellipta) calcium carbonate 600 mg-vitamin 1 cap PO DAILY 12/08/22 07/31/23 History D3 25 mcg (1,000 unit) capsule cholecalciferol (vitamin D3) 25 25 mcg PO HS 12/08/22 07/31/23 History mcg (1,000 unit) tablet (Vitamin D3) torsemide 10 mg tablet 10 mg PO 3XWK 12/08/22 07/31/23 History torsemide 10 mg tablet 10 mg PO QAM 12/08/22 07/31/23 History ascorbic acid (vitamin C) 1,000 mg 1 g PO DAILY 07/31/23 07/31/23 History tablet (Vitamin C) doxycycline hyclate 100 mg capsule 100 mg PO BID 07/31/23 07/31/23 History mirtazapine 7.5 mg tablet 7.5 mg PO HS 07/31/23 07/31/23 History Patient History Medical History Chronic diastolic CHF (congestive heart failure) CAD (coronary artery disease) Osteoarthritis CKD (chronic kidney disease) DJD (degenerative joint disease) Neuropathy Tachycardia reason colon/EGD being done at hospital per pt, Metoprolol was added for this Diabetes mellitus, type 2 NIDDM GERD (gastroesophageal reflux disease) Hypertension Hyperlipidemia History of COVID-05 October 2021 > not hospitalized Sleep apnea cpap Chronic obstructive pulmonary disease rare res inh use Surgical History History of tonsillectomy Hx of lumpectomy benign > right History of surgery on wrist right History of repair of rotator cuff right History of hysterectomy History of bladder surgery bladder tack History of esophagogastroduodenoscopy (EGD) History of colonoscopy History of herniorrhaphy History of cholecystectomy History of appendectomy History of tooth extraction History of cardiac cath [place] approx 5 yrs ago per pt, no stents Family History Mother Diabetes Grandmother (Maternal) Diabetes Social History Smoking Status: Current every day smoker Tobacco Type: Cigarettes Cigarettes Per Day: less than 1/2 ppd; Second Hand Exposure: No; Do You Dip or Chew Tobacco: No; Tobacco Cessation Education Requested by Patient: No Hx Alcohol Use: Yes Alcohol type: wine Hx Substance Use: No Preferred Language: Sinhala Communication Ability: Effective Sewing Machine Maintenance Mechanic Required: No Beliefs That Will Affect Care: None Current Living Situation: Alone Other Information That Helps Us Care for You: No Feels Safe at Home: Yes Safety Concerns: Feels Safe At This Time Assistive Devices: CPAP and Oxygen - Continuous Review of Systems Review of Systems: All systems reviewed & are unremarkable except as noted in HPI & below Physical Exam Physical Exam: Constitutional: Patient appears to be of their stated age. Elderly and frail appearing female in no apparent distress. Eyes: Pupils are equal round and reactive to light. Conjunctivae are normal. Anicteric sclera. Ears nose, mouth and throat: Mild perioral cyanosis. Neck: Trachea is midline. Visual inspection is normal. Respiratory: Diminished breath sounds bilaterally. No wheezing. No increased work of breathing. Cardiovascular: Regular rate and rhythm. No murmurs. No edema. Gastrointestinal: Normal bowel sounds, soft, nontender and nondistended. No hepatosplenomegaly noted. Musculoskeletal: No cyanosis. Patient is able to move all extremities. Strength is 5 out of 5 in the upper and lower extremities. Skin: No rashes, warm dry and intact. Neurologic: No obvious focal neurological deficits seen. Psychiatric: Alert and oriented x3 with a euthymic affect. Results & Data Results & Data Vital Signs (Past 12 Hours) Vital Signs Temp Pulse Pulse Resp BP Pulse Ox O2 Del Method 08/02/23 11:45 67 20 94 Nasal Cannula 08/02/23 10:33 36.3 C L 66 18 134/68 94 Nasal Cannula 08/02/23 08:00 81 08/02/23 08:00 Nasal Cannula 08/02/23 07:49 36.6 C 65 18 147/67 H 91 Nasal Cannula 08/02/23 07:21 65 20 94 CPAP 08/02/23 03:29 36.6 C 66 18 126/72 95 CPAP O2 Flow Rate 08/02/23 11:45 2 08/02/23 10:33 08/02/23 08:00 08/02/23 08:00 2 08/02/23 07:49 2 08/02/23 07:21 2 08/02/23 03:29 PG Care Time/CCT Total # of Minutes Spent Total Time Spent with Patient: Total time spent is greater than 50% in coordination of care (as documented) at patient's floor/unit and/or counseling patient: Coding Level of Care Code 92209 INT INP/OBS CARE 375MIN Diagnoses COPD exacerbation J44.1 Acute hypoxic respiratory failure J96.01 Parainfluenza virus infection B34.8 Tobacco abuse counseling Z71.6 OMARI (obstructive sleep apnea) G47.33
--- NOTE | 2023-08-02 18:58 | Hospitalist Progress Note ---
Date of Service August 02, 2023 Assessment & Plan (1) Parainfluenza virus infection: (2) Hypomagnesemia: (3) Acute hypoxic respiratory failure: (4) Chronic diastolic CHF (congestive heart failure): (5) CAD (coronary artery disease): (6) Hypertension: (7) Diabetes mellitus, type 2: Plan 77 year old F that presented to the ED with SOB that reportedly has been worsening over the past few days despite being started on antibiotics as an outpatient. She was started on Doxycycline as an outpatient for treatment of pneumonia. She was also given Prednisone with minimal improvement. Parainfluenza 3 virus infection: Pneumonia COPD exacerbation Recent admission in May + entero/rhinovirus and RSV admission in March 2023. No leukocytosis Chest x-ray:Cardiomegaly and emphysema with mild pulmonary vascular congestion. CT chest shows mucous plugging and scattered tree-in-bud nodules and mild patchy subpleural airspace opacities Treated with DuoNebs every 6 hours and budesonide and formoterol nebs Also empiric antibiotics ceftriaxone and azithromycin, Mucinex, IV steroids Pulmonary toilet with Mucinex, incentive spirometry, and flutter valve Pulmonology consulted, appreciate recs -discontinued rocephin and transitioned to po steroids Previous provider discussed importance of smoking cessation with patient at bedside. She reports that she will not quit smoking Acute on Chronic Diastolic CHF exacerbation- ruled out Chest x-ray on admission was concerning for volume overload. However comparison of her previous chest x-ray shows similar findings CT chest did not show any pulmonary edema BNP within normal levels Echocardiogram shows EF of greater than 70%, left ventricle hyperdynamic. Prominent anterior papillary muscle. Resting intracavitary left ventricular gradient of 54 mmHg. Previous provider discussed with plant protection guard who evaluated the report; Patient is already on beta-jeremy with metoprolol tartrate 12.5 mg twice daily . No workup needed further. Continue home diuretics DM2: Chronic Last A1C 05/13 6.8; Takes Glipizide; hold while inpatient and place on [facility] achs HTN: Chronic Takes Losartan and Metoprolol; continue CAD: Chronic Non-obstructive No chest pain but does feel palpitations Takes ASA; continue DVT prophylaxis: Lovenox Admission and Anticipated Discharge Date Admission Date: July 31, 2023 Subjective Pt was seen sitting at bedside, eating. Notes does not use oxygen at home. On 1L at the time of my exam. Review of Systems Review of Systems: All systems reviewed & are unremarkable except as noted in Subjective Physical Exam Physical Exam: General: Alert, oriented. No acute distress Skin: No noted rashes or bruises Psych: Appropriate mood and affect Neuro: No gross deficits while sitting and eating HEENT: NC/AT CV: RRR Resp: Breath sounds coarse bilaterally, no increased effort of breathing, good air movement Abdomen: Soft, nontender, nondistended. Extremities: No edema in lower extremities bilaterally. Results & Data Results & Data Vital Signs (Past 12 Hours) Vital Signs Temp Pulse Pulse Resp BP Pulse Ox O2 Del Method 08/02/23 07:49 36.6 C 65 18 147/67 H 91 Nasal Cannula 08/02/23 07:21 65 20 94 CPAP 08/02/23 03:29 36.6 C 66 18 126/72 95 CPAP 08/02/23 00:00 CPAP 08/01/23 23:36 36.4 C L 67 18 106/61 93 CPAP 08/01/23 23:00 73 08/01/23 20:30 36.5 C 79 20 121/70 93 Nasal Cannula O2 Flow Rate 08/02/23 07:49 2 08/02/23 07:21 2 08/02/23 03:29 08/02/23 00:00 08/01/23 23:36 08/01/23 23:00 08/01/23 20:30 2
[2023-08-03 07:48] LABS: Basophils # (auto) 0.02 K/uL (0.00-0.20); Basophils % (auto) 0.2 %; Hematocrit (blood only) 43.7 % (37.0-47.0); Hemoglobin 15.4 g/dl (12.0-16.0); Immature Granulocytes # (auto) 0.08 K/uL (0.01-0.20); Immature Granulocytes % (auto) 0.7 %; Lymphocytes # (auto) 0.74 K/uL (1.20-3.40); Lymphocytes % (auto) 6.4 %; Mean Corpuscular Hemoglobin 29.8 pg (25.0-34.0); Mean Corpuscular Hgb Conc 35.2 g/dL (32.0-36.0); Mean Corpuscular Volume 84.7 fL (80.0-100.0); Mean Platelet Volume 10.1 fL (9.4-12.4); Monocytes # (auto) 0.67 K/uL (0.11-0.59); Monocytes % (auto) 5.8 %; Neutrophils # (auto) 10.09 K/uL (1.40-6.50); Neutrophils % (auto) 86.9 %; Platelet Count 192 K/uL (130-400); RDW Coefficient of Variation 13.5 % (11.5-14.5); RDW Standard Deviation 41.7 fL (36.4-46.3); Red Blood Count 5.16 M/uL (4.20-5.40)
[2023-08-03] MEDS: predniSONE 20 MG TAB PO SCH (07:48)
[2023-08-03 08:03] LABS: Albumin Globulin Ratio 1.8 (0.9-2); Albumin Level 3.8 gm/dl (3.4-5.0); BUN Creatinine Ratio 30.7 (10-20); Bilirubin,Total 0.5 mg/dl (0.2-1.0); Calcium 8.8 mg/dl (8.6-10.3); Creatinine Clr Calc Pharmacy 30.8 ml/min; Est GFR (African American) 35.1 ml/min; Est GFR (Non-African American) 30.3 ml/min; Globulin 2.1 gm/dl (2.5-4.0); Magnesium 1.8 mg/dl (1.7-2.4); Phosphorus 4.4 mg/dl (2.5-4.9); Potassium 3.7 mmol/L (3.5-5.1); Total Protein 5.9 gm/dl (6.0-8.3)
--- NOTE | 2023-08-03 13:56 | Hospitalist Progress Note ---
Date of Service August 03, 2023 Assessment & Plan (1) Parainfluenza virus infection: (2) Hypomagnesemia: (3) Acute hypoxic respiratory failure: (4) Chronic diastolic CHF (congestive heart failure): (5) CAD (coronary artery disease): (6) Hypertension: (7) Diabetes mellitus, type 2: Plan 77 year old F that presented to the ED with SOB that reportedly has been worsening over the past few days despite being started on antibiotics as an outpatient. She was started on Doxycycline as an outpatient for treatment of pneumonia. She was also given Prednisone with minimal improvement. Parainfluenza 3 virus infection: Pneumonia COPD exacerbation Recent admission in May + entero/rhinovirus and RSV admission in March 2023. No leukocytosis Chest x-ray:Cardiomegaly and emphysema with mild pulmonary vascular congestion. CT chest shows mucous plugging and scattered tree-in-bud nodules and mild patchy subpleural airspace opacities Treated with DuoNebs every 6 hours and budesonide and formoterol nebs Also empiric antibiotics ceftriaxone and azithromycin, Mucinex, IV steroids Pulmonary toilet with Mucinex, incentive spirometry, and flutter valve Pulmonology consulted, appreciate recs -discontinued rocephin and transitioned to po steroids Previous provider discussed importance of smoking cessation with patient at bedside. She reports that she will not quit smoking Acute on Chronic Diastolic CHF exacerbation- ruled out Chest x-ray on admission was concerning for volume overload. However comparison of her previous chest x-ray shows similar findings CT chest did not show any pulmonary edema BNP within normal levels Echocardiogram shows EF of greater than 70%, left ventricle hyperdynamic. Prominent anterior papillary muscle. Resting intracavitary left ventricular gradient of 54 mmHg. Previous provider discussed with tailings dam pumper who evaluated the report; Patient is already on beta-jeremy with metoprolol tartrate 12.5 mg twice daily . No workup needed further. Continue home diuretics DM2: Chronic Last A1C 05/13 6.8; Takes Glipizide; hold while inpatient and place on [facility] achs HTN: Chronic Takes Losartan and Metoprolol; continue CAD: Chronic Non-obstructive No chest pain but does feel palpitations Takes ASA; continue DVT prophylaxis: Lovenox Admission and Anticipated Discharge Date Admission Date: July 31, 2023 Subjective Pt was seen sitting at bedside States not ready to go home yet, first day out of bed States she was shaky working with PT. Otherwise her symptoms are improved Review of Systems Review of Systems: All systems reviewed & are unremarkable except as noted in Subjective Physical Exam Physical Exam: General: Alert, oriented. No acute distress Skin: No noted rashes or bruises Psych: Appropriate mood and affect Neuro: No gross deficits while sitting and eating HEENT: NC/AT CV: RRR Resp: Breath sounds coarse bilaterally, no increased effort of breathing, good air movement Abdomen: Soft, nontender, nondistended. Extremities: No edema in lower extremities bilaterally. Results & Data Results & Data Vital Signs (Past 12 Hours) Vital Signs Temp Pulse Resp BP Pulse Ox O2 Del Method O2 Flow Rate 08/03/23 13:21 93 08/03/23 11:47 71 17 93 Nasal Cannula 2 08/03/23 11:09 36.6 C 66 22 108/67 91 Room Air 2 08/03/23 08:00 Nasal Cannula 2 08/03/23 07:33 36.6 C 66 17 116/66 92 CPAP 08/03/23 07:05 70 18 95 CPAP 2 08/03/23 04:05 36.8 C 69 18 122/66 96 BiPAP
[2023-08-04 07:54] LABS: Basophils # (auto) 0.01 K/uL (0.00-0.20); Basophils % (auto) 0.1 %; Eosinophils # (auto) 0.02 K/uL (0.00-0.50); Eosinophils % (auto) 0.3 %; Immature Granulocytes # (auto) 0.06 K/uL (0.01-0.20); Immature Granulocytes % (auto) 0.9 %; Lymphocytes # (auto) 2.06 K/uL (1.20-3.40); Lymphocytes % (auto) 29.8 %; Mean Corpuscular Hemoglobin 29.8 pg (25.0-34.0); Mean Corpuscular Hgb Conc 34.9 g/dL (32.0-36.0); Mean Corpuscular Volume 85.3 fL (80.0-100.0); Mean Platelet Volume 10.2 fL (9.4-12.4); Monocytes # (auto) 0.71 K/uL (0.11-0.59); Monocytes % (auto) 10.3 %; Neutrophils # (auto) 4.05 K/uL (1.40-6.50); Neutrophils % (auto) 58.6 %; Platelet Count 162 K/uL (130-400); RDW Coefficient of Variation 13.5 % (11.5-14.5); RDW Standard Deviation 42.4 fL (36.4-46.3); Red Blood Count 5.04 M/uL (4.20-5.40); White Blood Count 6.91 K/ul (4.8-10.8)
[2023-08-04 08:07] LABS: Albumin Globulin Ratio 1.8 (0.9-2); Albumin Level 3.5 gm/dl (3.4-5.0); BUN Creatinine Ratio 31.4 (10-20); Bilirubin,Total 0.7 mg/dl (0.2-1.0); Calcium 8.7 mg/dl (8.6-10.3); Creatinine Clr Calc Pharmacy 29.8 ml/min; Est GFR (African American) 33.6 ml/min; Magnesium 1.9 mg/dl (1.7-2.4); Phosphorus 4.4 mg/dl (2.5-4.9); Potassium 3.7 mmol/L (3.5-5.1); Total Protein 5.5 gm/dl (6.0-8.3)
[2023-08-04] MEDS: LANTUS PER UNIT CHARGE SQ SCH (08:48)
--- NOTE | 2023-08-04 12:33 | Hospitalist Progress Note ---
Date of Service August 04, 2023 Assessment & Plan (1) Parainfluenza virus infection: (2) Hypomagnesemia: (3) Acute hypoxic respiratory failure: (4) Chronic diastolic CHF (congestive heart failure): (5) CAD (coronary artery disease): (6) Hypertension: (7) Diabetes mellitus, type 2: Plan 77 year old F that presented to the ED with SOB that reportedly has been worsening over the past few days despite being started on antibiotics as an outpatient. She was started on Doxycycline as an outpatient for treatment of pneumonia. She was also given Prednisone with minimal improvement. Parainfluenza 3 virus infection: Pneumonia COPD exacerbation Recent admission in May + entero/rhinovirus and RSV admission in March 2023. No leukocytosis Chest x-ray:Cardiomegaly and emphysema with mild pulmonary vascular congestion. CT chest shows mucous plugging and scattered tree-in-bud nodules and mild patchy subpleural airspace opacities Treated with DuoNebs every 6 hours and budesonide and formoterol nebs Also empiric antibiotics ceftriaxone and azithromycin, Mucinex, IV steroids Pulmonary toilet with Mucinex, incentive spirometry, and flutter valve Pulmonology consulted, appreciate recs -discontinued rocephin and transitioned to po steroids -5 days of azithromycin 500mg daily Previous provider discussed importance of smoking cessation with patient at bedside. She reports that she will not quit smoking Acute on Chronic Diastolic CHF exacerbation- ruled out Chest x-ray on admission was concerning for volume overload. However comparison of her previous chest x-ray shows similar findings CT chest did not show any pulmonary edema BNP within normal levels Echocardiogram shows EF of greater than 70%, left ventricle hyperdynamic. Prominent anterior papillary muscle. Resting intracavitary left ventricular gradient of 54 mmHg. Previous provider discussed with thread winder automatic who evaluated the report; Patient is already on beta-jeremy with metoprolol tartrate 12.5 mg twice daily . No workup needed further. Continue home diuretics DM2: Chronic Last A1C 05/13 6.8; Takes Glipizide; hold while inpatient and place on SSI achs HTN: Chronic Takes Losartan and Metoprolol; continue CAD: Chronic Non-obstructive No chest pain but does feel palpitations Takes ASA; continue DVT prophylaxis: Lovenox Dispo: PT/OT recommending home with services Admission and Anticipated Discharge Date Admission Date: July 31, 2023 Subjective Pt was seen sitting at bedside States not ready to go home yet, first day out of bed States she was shaky working with PT. Otherwise her symptoms are improved Review of Systems Review of Systems: All systems reviewed & are unremarkable except as noted in Subjective Physical Exam Physical Exam: General: Alert, oriented. No acute distress Skin: No noted rashes or bruises Psych: Appropriate mood and affect Neuro: No gross deficits while sitting and eating HEENT: NC/AT CV: RRR Resp: Breath sounds coarse bilaterally, no increased effort of breathing, good air movement Abdomen: Soft, nontender, nondistended. Extremities: No edema in lower extremities bilaterally. Results & Data Results & Data Vital Signs (Past 12 Hours) Vital Signs Temp Pulse Resp BP Pulse Ox O2 Del Method O2 Flow Rate 08/04/23 11:41 56 L 20 94 Nasal Cannula 1 08/04/23 11:30 36.8 C 73 18 123/82 94 Nasal Cannula 2 08/04/23 08:34 36.7 C 70 18 110/53 L 97 Nasal Cannula 1 08/04/23 07:35 58 L 20 97 CPAP 2 08/04/23 03:23 36.7 C 60 19 115/63 97 BiPAP
--- NOTE | 2023-08-04 14:45 | Pharmacy Report ---
Pharmacy Glycemic Short Note 2 - Date of Service August 04, 2023 - Glycemic Short BSG Results (Last 24 hours): 08/03/23 08/03/23 08/04/23 16:46 20:02 07:09 Glucose 119 H POC Glucose 127 H 211 H 08/04/23 08/04/23 07:35 11:14 Glucose POC Glucose 112 H 186 H OUTPATIENT ANTIDIABETIC REGIMEN: * Glipizide 5 mg PO daily * A1c = 7% ASSESSMENT: 08/03: * Patient received total 72 units of insulin yesterday: 34 units basal and 38 units bolus. * She was switched over from Solu-Medrol to Prednisone 40 mg daily yesterday. * BSGs yesterday were [phone] mg/dl. Fasting BSG today was 112 mg/dl. * Since post-prandial BSGs at lunch and HS were elevated, carb ratio was tightened slightly yesterday. * Serum creatinine increasing. Concern for patient not clearing insulin well enough. Reduced basal dosing slightly. Novolog parameters continued the same as yesterday. 08/01: * Mildred received 67 units of SQ insulin yesterday while on methylprednisolone 40 mg IV TID * 34 units of basal and 33 units of bolus * Fasting BSG of 206 mg/dL this morning. Fasting improved but remains above goal. I will lower the threshold of the basal dosing scale to allow for increased doses of insulin to be given. * Post prandial BSGs mostly controlled with the exception of BSG 245 mg/dL at baseline. 07/31: * Mildred is a 77 T2DM who presented with worsening shortness of breath. * Started on IV antibiotics and high dose IV steroids (methylprednisolone 40 mg IV TID) for acute on chronic respiratory failure and possible volume overload. BSG of 418 mg/dL on 07/30 PM. * Fasting BSG 220 mg/dL. Will order Lantus to be dosed per BSG scale until insulin needs are better known. * Tighten Novolog CF and CR. PLAN FOR INPATIENT GLYCEMIC CONTROL: * Hold outpatient oral diabetes medications * Basal insulin * Lantus 15 units SC BID * Bolus insulin * NovoLog per scale ACHS or Q6hrs while NPO * Goal Range: Low 110 mg/dL - High 140 mg/dL * Correction Factor: 20 mg/dL/unit * Nutritional / Prandial insulin per carb ratio of 1 unit per 7 grams CHO consumed
[2023-08-04] MEDS: AZITHROMYCIN 250 MG TAB PO SCH (15:00)
[2023-08-05 06:58] LABS: Albumin Globulin Ratio 1.8 (0.9-2); Albumin Level 3.7 gm/dl (3.4-5.0); BUN Creatinine Ratio 29.8 (10-20); Bilirubin,Total 0.7 mg/dl (0.2-1.0); Calcium 8.6 mg/dl (8.6-10.3); Creatinine Clr Calc Pharmacy 31.6 ml/min; Est GFR (African American) 31.6 ml/min; Est GFR (Non-African American) 27.2 ml/min; Globulin 2.1 gm/dl (2.5-4.0); Magnesium 1.9 mg/dl (1.7-2.4); Phosphorus 4.1 mg/dl (2.5-4.9); Potassium 3.8 mmol/L (3.5-5.1); Total Protein 5.8 gm/dl (6.0-8.3)
[2023-08-05 07:08] LABS: Basophils # (auto) 0.02 K/uL (0.00-0.20); Basophils % (auto) 0.2 %; Eosinophils # (auto) 0.03 K/uL (0.00-0.50); Eosinophils % (auto) 0.3 %; Hematocrit (blood only) 44.8 % (37.0-47.0); Hemoglobin 15.8 g/dl (12.0-16.0); Immature Granulocytes # (auto) 0.15 K/uL (0.01-0.20); Immature Granulocytes % (auto) 1.7 %; Lymphocytes # (auto) 2.13 K/uL (1.20-3.40); Lymphocytes % (auto) 23.9 %; Mean Corpuscular Hemoglobin 29.8 pg (25.0-34.0); Mean Corpuscular Hgb Conc 35.3 g/dL (32.0-36.0); Mean Corpuscular Volume 84.5 fL (80.0-100.0); Monocytes # (auto) 0.84 K/uL (0.11-0.59); Monocytes % (auto) 9.4 %; Neutrophils # (auto) 5.74 K/uL (1.40-6.50); Neutrophils % (auto) 64.5 %; Platelet Count 167 K/uL (130-400); RDW Coefficient of Variation 13.3 % (11.5-14.5); RDW Standard Deviation 40.8 fL (36.4-46.3); White Blood Count 8.91 K/ul (4.8-10.8)
[2023-08-05] MEDS: ENOXAPARIN INJ 30 MG/0.3 ML SYR SQ SCH (07:59)
--- NOTE | 2023-08-05 13:21 | Discharge Summary ---
Discharge Summary Date of Service August 05, 2023 Notes For Next Care Provider Please ensure close pulmonology followup after discharge Encourage smoking cessation Please repeat BMP in 3 days and closely monitor kindey function; Consider nephrology followup while on high dose diuretics. Medication Changes From Visit Per pulmonology on day of discharge: -Prednisone 40mg daily for a total of 5 days of treatment. Pt advised to take for TWO more days after discharge. Admission HPI Per Admitting Provider Pt is a 77 year old that presented to the ED with SOB that reportedly has been worsening over the past few days despite being started on antibiotics as an outpatient. She was started on Doxycycline as an outpatient for treatment of 'pneumonia'. She was also given Prednisone with minimal improvement. She describes the increased weakness and increased tachycardia and palpitations and tachycardia. She describes it being difficult to get a cup of coffee without feeling like she cant catch her breath. She has expressed she has been using her oxygen intermittently at home. Patient was given IV Solu-Medrol plus DuoNeb by EMS. In the ED another DuoNeb was administered. Patient has a past medical history of diastolic CHF, CAD, COPD, history of RSV, HTN, HLD, tobacco use and others. She had a recent inpatient hospitalization 05/30 to 06/06 for entero-/rhinovirus and was hospitalized at the beginning of 2023 for RSV. She reports has been off of her oxygen however has been using it more intermittently lately. She felt more short of breath and called EMS. On arrival her SpO2 was in the upper 80s and was placed on 4 L NC. She also recently completed a prednisone taper pack. Currently she denies chest pain and palpitations. Denies headache, dizziness, lightheadedness, abdominal pain or tenderness, N/V/D, dysuria, hematochezia. Patient is receptive to BiPap or Hi-Flow if necessary. Would like to avoid intubation. Pt is a conditional code. Patient will be admitted for further evaluation and management of her acute on chronic respiratory failure in the setting of Parainfluenza 3 and possible volume overload. Will empirically treat with Rocephin plus azithromycin, Solu- Medrol IV 3 times daily, nebs 4 times daily plus every 2 as needed, pulmonary toilet with Mucinex, incentive spirometry, and flutter valve. No leukocytosis, hypomag 1.3 replaced with 2 g BNP slightly elevated 119, positive parainfluenza 3. Lasix 40 mg once given in ED on examination. Will hold torsemide and Aldactone for now. Admission Exam Per Admitting Provider GENERAL APPEARANCE: AxOx4, mild distress, conversational dyspnea HEENT: NC, AT. MMM. EOMI, clear conjunctiva, oropharynx clear. NECK: Supple without lymphadenopathy HEART: Normal rate and regular rhythm, normal S1/S1, no m/r/g LUNGS: diffuse rhonchi noted, crackles in bibasilar bases, chest sounds tight, forceful expiration ABDOMEN: Soft, nontender, nondistended with good bowel sounds heard. BACK: No CVAT, no obvious deformity. EXTREMITIES: Without cyanosis, clubbing or edema. NEUROLOGICAL: Grossly nonfocal. Alert and oriented, moving all 4 extremities. CN not formally tested but appear grossly intact. Skin: Warm and dry without any rash. Principal Dx & Hospital Course #1 = Principal Diagnosis (1) Parainfluenza virus infection: (2) Hypomagnesemia: (3) Acute hypoxic respiratory failure: (4) Chronic diastolic CHF (congestive heart failure): (5) CAD (coronary artery disease): (6) Hypertension: (7) Diabetes mellitus, type 2: Plan 77 year old F that presented to the ED with SOB that reportedly has been worsening over the past few days despite being started on antibiotics as an outpatient. She was started on Doxycycline as an outpatient for treatment of p neumonia. She was also given Prednisone with minimal improvement. Parainfluenza 3 virus infection: Pneumonia COPD exacerbation Recent admission in May + entero/rhinovirus and RSV admission in March 2023. No leukocytosis Chest x-ray:Cardiomegaly and emphysema with mild pulmonary vascular congestion. CT chest shows mucous plugging and scattered tree-in-bud nodules and mild patchy subpleural airspace opacities Treated with DuoNebs every 6 hours and budesonide and formoterol nebs Also empiric antibiotics ceftriaxone and azithromycin, Mucinex, IV steroids Pulmonary toilet with Mucinex, incentive spirometry, and flutter valve Pulmonology consulted, appreciate recs -discontinued rocephin and transitioned to po steroids, discharged with 7 days of prednisone. However, on further discussion with video engineer Dr Root on the day of discharge pt advised to take it for TWO more days only for a total of 5 days of treatment. No extended course. She was called and updated and was in agreement. -5 days of azithromycin 500mg daily, she completed treatment while hospitalized. Multiple providers discussed importance of smoking cessation with patient at bedside. She reports that she will not quit smoking PCP followup as well as Pulmonology followup after discharge. Acute on Chronic Diastolic CHF exacerbation- ruled out Chest x-ray on admission was concerning for volume overload. However comparison of her previous chest x-ray shows similar findings CT chest did not show any pulmonary edema BNP within normal levels Echocardiogram shows EF of greater than 70%, left ventricle hyperdynamic. Prominent anterior papillary muscle. Resting intracavitary left ventricular gradient of 54 mmHg. Previous provider discussed with wildlife management professor who evaluated the report; Patient is already on beta-jeremy with metoprolol tartrate 12.5 mg twice daily . No workup needed further. Continue home diuretics DM2: Chronic Last A1C 05/13 6.8; Takes Glipizide, resume on discharge with close pcp monitoring HTN: Chronic Takes Losartan and Metoprolol; continue CAD: Chronic Non-obstructive No chest pain but does feel palpitations Takes ASA; continue Discharge Exam General: Alert, oriented. No acute distress Skin: No noted rashes or bruises Psych: Appropriate mood and affect Neuro: No gross deficits while sitting and eating HEENT: NC/AT CV: RRR Resp: Breath sounds decreased bilaterally, no increased effort of breathing, good air movement Abdomen: Soft, nontender, nondistended. Extremities: No edema in lower extremities bilaterally. Updated Medication List Medication Instructions Recorded Confirmed Type aspirin 81 mg tablet,delayed 81 mg PO QAM 07/04/22 07/31/23 History release atorvastatin 40 mg tablet 40 mg PO HS 07/04/22 07/31/23 History fluticasone furoate 200 1 inh inhalation 07/04/22 07/31/23 History mcg/actuation blister powder for inhalation (Arnuity Ellipta) glipizide 5 mg tablet 5 mg PO QAM 07/04/22 07/31/23 History losartan 50 mg tablet 50 mg PO QAM 07/04/22 07/31/23 History metoprolol tartrate 25 mg tablet 12.5 mg PO BID 07/04/22 07/31/23 History omeprazole 20 mg capsule,delayed 20 mg PO QAM 07/04/22 07/31/23 History release spironolactone 25 mg tablet 12.5 mg PO 4XWK 07/04/22 07/31/23 History spironolactone 25 mg tablet 25 mg PO 3XWK 07/04/22 07/31/23 History umeclidinium 62.5 mcg-vilanterol 1 inh inhalation DAILY 07/04/22 07/31/23 History 25 mcg/actuation powdr for inhalation (Anoro Ellipta) calcium carbonate 600 mg-vitamin 1 cap PO DAILY 12/08/22 07/31/23 History D3 25 mcg (1,000 unit) capsule cholecalciferol (vitamin D3) 25 25 mcg PO HS 12/08/22 07/31/23 History mcg (1,000 unit) tablet (Vitamin D3) torsemide 10 mg tablet 10 mg PO 3XWK 12/08/22 07/31/23 History torsemide 10 mg tablet 10 mg PO QAM 12/08/22 07/31/23 History ascorbic acid (vitamin C) 1,000 mg 1 g PO DAILY 07/31/23 07/31/23 History tablet (Vitamin C) mirtazapine 7.5 mg tablet 7.5 mg PO HS 07/31/23 07/31/23 History prednisone 20 mg tablet 40 mg (2 x 20 mg) PO DAILY #14 tabs 08/05/23 Rx Hospital Stay Data Consultations 07/31/23 17:49 ED Decision to Admit Stat 08/02/23 10:37 Consult Pulmonology Routine Diagnostic Imagining Performed 08/01/23 11:53 CT chest diagnostic wo con Routine 08/01/23 11:54 US venous duplex leg [US venous doppler LE BI] Routine Chest X-Ray 07/31/23 16:02 SINGLE VIEW CHEST CLINICAL HISTORY: Dyspnea FINDINGS: An AP, portable, upright chest radiograph is compared to study dated 05/31/2023. Correlation is made with chest CT dated 02/12/2020. The heart is mild enlarged noting atherosclerotic calcification of the thoracic aorta. There is mild pulmonary vascular congestion. Emphysema and chronic interstitial thickening is similar to previous. There is bibasilar scarring/atelectasis. No airspace consolidation or large pleural effusion is identified. No pneumothorax is seen. The skeletal structures are osteopenic. The bony thorax is grossly intact. Arthritic change is seen in the shoulders and spine. IMPRESSION: 1. Cardiomegaly and emphysema with mild pulmonary vascular congestion. 2. No airspace consolidation or large pleural effusion is identified ACT 112: Negative or not required by law. Electronically signed by: Osito Pepper M.D. 07/31/2023 4:[address] 08/01/23 11:53 CT chest diagnostic wo con CT DOSE: 647.52 mGy.cm CLINICAL HISTORY: 77 years-old Female with Rule out pneumonia, hx of COPD. Acute shortness of breath TECHNIQUE: Multiaxial CT images of the chest were performed without contrast. A dose lowering technique was utilized adhering to the principles of ALARA. COMPARISON: CT chest 02/12/2020 FINDINGS: No thyroid nodule or lymphadenopathy. The heart is mildly enlarged with extensive pulmonary artery calcifications. Atherosclerosis of the thoracic aorta without aneurysm. The unopacified pulmonary artery is unremarkable. There is no pneumothorax, pleural effusion or pulmonary edema. Mild to moderate pulmonary emphysema. Bronchial wall thickening with areas of mucous plugging. Mild patchy areas of subpleural subsegmental consolidation are noted bilaterally, most pronounced within the left upper and lower lobes. Mild additional scattered tree-in-bud nodules. No suspicious pulmonary nodules or masses identified. 5 mm calcification within the interpolar left kidney. Atrophic right kidney. Cholecystectomy. The spleen is mildly enlarged. Chronic-appearing calcified abdominal aortic dissection. The abdominal aorta measures up to 2.4 cm. No acute fracture. IMPRESSION: 1. Emphysema with bronchitis and mucous plugging. 2. Scattered tree in bud nodules compatible with an infectious or inflammatory bronchiolitis. 3. Mild patchy subpleural airspace opacities may represent areas of atelectasis versus pneumonia. 4. No pleural effusion or lymphadenopathy. 5. Severely atrophic right kidney. ACT 112: Negative or not required by law. Electronically signed by: Jeff Pacheco M.D. 08/01/2023 2:38 PM Venous Doppler Study 08/01/23 11:54 ULTRASOUND BILATERAL LOWER EXTREMITY VENOUS CLINICAL HISTORY: Dyspnea. Clinical concern for deep venous thrombosis. COMPARISON STUDY: No priors. TECHNIQUE: Real-time, grayscale, and color Doppler sonography of the deep veins of the right and left lower extremity was performed from the inguinal crease to the calf. Compression and augmentation were utilized. FINDINGS: There is no sonographic evidence of deep venous thrombosis identified in the right or left lower extremity. The common femoral, superficial femoral, and popliteal veins are patent and normally compressible bilaterally. The greater saphenous vein and the profunda femoris vein at the junction with the common femoral vein are clear in both legs. The visualized calf veins are patent bilaterally. A complex pelvic cyst on the right measures 5.0 x 1.5 x 2.5 cm and a complex popliteal cyst on the left measures 4.8 x 1.2 x 2.5 cm. IMPRESSION: 1. There is no sonographic evidence of deep venous thrombosis identified in the right or left lower extremity. 2. Bilateral Davis's cysts. ACT 112: Negative or not required by law. Electronically signed by: Osito Pepper M.D. 08/01/2023 3:09 PM Pending Results Patient Have Any Pending Studies at Discharge: No Discharge Instructions Given to Patient (Per Discharging Provider) Ms. Moser, We are discharging you home. You were seen by the video engineer and they recommend discharge home. They recommend that you stop smoking, take the prednisone 40mg daily for a total of 10 days and that you follow up with your video engineer after discharge. Please also keep close follow up with your primary care provider after discharge. They also need to monitor your kidney function. Please do not hesitate to come back to the emergency room if your symptoms worsen or return. It was a pleasure taking care of you while you were here. Total Time Total Time Spent Total Time Spent (In Minutes): 75
== END 2023-08-05 13:59 | disposition home health service (06) | DRG 189 ==
LOC: ED 15:48 → 4W 17:56 → SUATTDRO 17:56 → 4W 19:37